=== PATIENT | male | born 1940 | race Caucasian/White ===

== ENCOUNTER 2016-09-28 01:27 | Inpatient (IN) | payer MEDICARE, BC ==
[~2016-09-28] VITALS: Ht 172.7 cm; Wt 84.7 kg
[2016-09-28] VITALS (18 sets, daily range): BP systolic 110–148; BP diastolic 58–69; PULSE 59–78; RESP 16–26; TEMP 97.9; O2SAT 93–100
[~2016-09-28 01:27] MED LIST: ALBU8I INH; AMIO200T PO; ATOR10TA PO; AUGM875T PO; CALTTAB5 PO; CARV12.5 PO; CLON1 PO; COUM3TAB PO; ESCI10TA PO; FURO20TA PO; IPRAAER IN; LORTA5 PO; OMEP20TA PO; PRED20 PO; TAMS0.4C67 PO; Z.0.OXYGENDME NASAL
[2016-09-28] MEDS ORDERED: SODIUM CHLORIDE 0.9% FLUSH 5 ML FLUSH IVF PRN ×2 (01:45→03:00)
--- NOTE | 2016-09-28 01:53 | PD ---
HPI Chief Complaint: Respiratory Distress Time Seen by Provider: 01:42 Travel History International Travel<30 days: No Contact w/Intl Traveler<30days: No Traveled to known affect area: No History of Present Illness HPI The patient is a 76 year old male who presents to the [facility] emergency department with a history of shortness of breath that began while he was taking a nap. The patient reports that he has not been sleeping well and has instead been taking frequent naps. According to ambulance services, the patient was tachypneic with crackles in the bases and a history of congestive heart failure with diaphoresis and significant work of breathing. Prior to arrival, the patient was placed on CPAP, however he had anxiety related to this was given Ativan 0.5 mg IV. The patient was able to tolerate the CPAP then and had O2 saturations en route to this facility of 98% since placement on CPAP. The patient was given Lasix 100 mg IV. The patient on arrival reports feeling improved. The patient was switched over to BiPAP by respiratory therapy who is also at the bedside. The patient reports that he does also have a history of COPD. The patient has dyspnea on arrival and is unable to provide any other significant history. The patient's history is obtained from reviewing the patient's electronic medical record and from reviewing the patient's paperwork provided by him at the bedside. PFS Past Medical History Narrative Medical The patient's past medical history is significant for congestive heart failure, COPD, coronary artery disease, hypertension, thrombocytopenia, atrial fibrillation Hx Anticoagulant Therapy: Yes (coumadin) Asthma: No Atrial Fibrillation: Yes Autoimmune Disease: Yes Blood Disorders: Yes (platelet issues - very low count) Anxiety: Yes Depression: Yes Heart Rhythm Problems: Yes Cancer: No Cardiac Catheterization: Yes (PACER BATTERY REPLACED 05/11/16) Cardiovascular Problems: Yes High Cholesterol: No Chemotherapy: No Chest Pain: Yes Congestive Heart Failure: Yes COPD: Yes Cerebrovascular Accident: No Diabetes: No Diminished Hearing: No Endocrine: No Gastrointestinal Disorders: Yes (GERD, HX DIVERTICULITIS, COLOSTOMY) GERD: No Glaucoma: No Genitourinary: No Hepatitis: No Hiatal Hernia: Yes Hypertension: Yes Immune Disorder: No Implanted Vascular Access Dvce: Yes Kidney Stones: No Musculoskeletal: Yes (back pain) Neurologic: Yes (TIA a few months ago) Psychiatric: No Reproductive: No Respiratory: Yes (COPD) Integumentary: No Immunizations Current: Yes Myocardial Infarction: Yes Radiation Therapy: No Renal Failure: No Seizures: No Sleep Apnea: No Thyroid Disease: No Ulcer: No PNEUMOCCOCAL Vaccine (Year): 1 Past Surgical History Narrative Surgical The patient has a history of pacemaker and defibrillator placement, history of partial colon resection with colostomy status post reversal, history of bilateral cataract surgery. Abdominal Surgery: Yes (RUPT. DIVERTICULUM SX/ COLOSTOMY) AICD: Yes ([email or web address]) Body Medical Devices: pacemaker and defibrillator Cardiac Surgery: Yes (AICD IMPL.) Ear Surgery: No Endocrine Surgery: No Eye Surgery: Yes (COSME. CATARACT EXTRACT) Genitourinary Surgery: No Gynecologic Surgery: No Joint Replacement: No Oral Surgery: No Pacemaker: Yes (W/AICD) Thoracic Surgery: No Other Surgery: Yes (pacemaker defib,colostomy/reversal,) Social History Alcohol Use: No Tobacco Use: Yes (3-4 CIGARETTES/DAY) Substance Use: No Allergies-Medications (Allergen,Severity, Reaction): Coded Allergies: Quinidex Extentab (Verified Allergy, Severe, PLATELETT COUNT DECREASES/ BLINDNESS, 05/11/16) Niacin (Verified Allergy, Intermediate, RASH/ITCHING, 05/11/16) MRI PRECAUTION (Verified Adverse Reaction, Severe, NON MRI COMPATIBLE DEFIB 10/22/15 LRS, 05/11/16) *MDRO Multi-Drug Resistant Organism (Verified Adverse Reaction, Unknown, ) ESBL+E.Coli and VRE Enterococcus Faecium abdominal wound 07/2015 Reported Meds & Prescriptions Reported Meds & Active Scripts Active Reported Warfarin 3 Mg Tab 1.5 Mg PO TUETHURSAT Warfarin 3 Mg Tab 3 Mg PO MONWEDFRISUN Ventolin Hfa 18 GM Inh (Albuterol Sulfate) 90 Mcg/Act Aer 2 Puff INH Q4-6H PRN Carvedilol 12.5 Mg Tab 12.5 Mg PO BID Tamsulosin (Tamsulosin HCl) 0.4 Mg Cap 0.4 Mg PO HS Omeprazole 20 Mg Tab 20 Mg PO DAILY Medrol (Methylprednisolone) 4 Mg Tab 4 Mg PO DAILY Klor-Con M20 (Potassium Chloride Microencaps) 20 Meq Tab 20 Meq PO Q12HR Duoneb (Ipratropium-Albuterol Neb) 0.5-2.5 Mg/3 Ml Neb 1 Nebule INH Q6HR NEB Hydrocodone-Acetaminophen 5-300 Mg Tab 1 Tab PO AC LUNCH PRN Hydrocodone-Acetaminophen 5-300 Mg Tab 2 Tab PO BID PRN Furosemide 40 Mg Tab 40 Mg PO DAILY Escitalopram (Escitalopram Oxalate) 10 Mg Tab 10 Mg PO DAILY Doxycycline Hyclate 100 Mg Cap 100 Mg PO BID Clonazepam 0.5 Mg Tab 0.5 Mg PO BID Cheratussin AC Liq (Guaifenesin-Codeine Liq) 100-10 Mg/5 Ml Syrp 5 Ml PO Q4H PRN Do not exceed 6 doses/24 hrs. Calcium 600 with Vitamin D (Calcium Carbonate-Cholecalciferol) 600-400 mg-Unit Tab 1 Tab PO BID Atorvastatin (Atorvastatin Calcium) 10 Mg Tab 10 Mg PO HS Amiodarone (Amiodarone HCl) 200 Mg Tab 200 Mg PO DAILY Review of Systems General / Constitutional: No: Fever Eyes: No: Visual changes HENT: No: Headaches Cardiovascular: Positive: Dyspnea on exertion, Edema Respiratory: Positive: Cough, Shortness of Breath Gastrointestinal: No: Abdominal Pain Genitourinary: No: Dysuria Musculoskeletal: No: Pain Skin: No Rash Neurologic: No: Weakness Psychiatric: No: Depression Endocrine: No: Polydipsia Hematologic/Lymphatic: No: Easy Bruising Physical Exam Narrative General: The patient is a well-developed well-nourished male, with shortness of breath, currently on CPAP. Head and Neck exam: Head is normocephalic atraumatic. Eyes: Pupils are equal round and reactive to light. Nose: Midline septum with pink mucous membranes Mouth: Dentition unremarkable. Moist mucus membranes. Posterior oropharynx is not erythematous. No tonsillar hypertrophy. Uvula midline. Airway patent. Neck: No palpable lymphadenopathy. No nuchal rigidity. No thyromegaly. Cardiovascular: Regular rate and rhythm without murmurs, gallops, or rubs. No pulse deficit to the extremities and simultaneous auscultation and palpation of his radial artery. Lungs: Crackles audible in bilateral lung guthrie two thirds up from the base. No wheezes or rhonchi audible. Abdomen: Soft, without tenderness to palpation in all 4 quadrants of the abdomen. No guarding, rebound, or rigidity. Normal bowel sounds are audible. Extremities: No clubbing or cyanosis. The patient has 1+ pitting edema bilateral lower extremities. 2+ pulses in all 4 extremities. Back: No costovertebral angle tenderness to palpation. Neurologic Exam: Grossly nonfocal. Skin Exam: No rash noted. Intact skin that is warm and dry. Data Data Last Documented VS Vital Signs Date Time Temp Pulse Resp B/P Pulse Ox O2 Delivery O2 Flow Rate FiO2 09/28/16 03:45 100 50 09/28/16 01:47 CPAP 09/28/16 01:47 70 18 09/28/16 01:36 97.9 148/69 Orders Complete Blood Count With Diff (09/28/16 01:42) Comprehensive Metabolic Panel (09/28/16 01:42) B-Type Natriuretic Peptide (09/28/16 01:42) Act Partial Throm Time (Ptt) (09/28/16 01:42) Prothrombin Time / Inr (Pt) (09/28/16 01:42) Magnesium (Mg) (09/28/16 01:42) Ckmb (Isoenzyme) Profile (09/28/16 01:42) Troponin I (09/28/16 01:42) Arterial Blood Gas (Abg) (09/28/16 01:42) Urinalysis - C+S If Indicated (09/28/16 01:42) Iv Access Insert/Monitor (09/28/16 01:42) Electrocardiogram (09/28/16 01:42) Ecg Monitoring (09/28/16 01:42) Oximetry (09/28/16 01:42) Oxygen Administration (09/28/16 01:42) Chest, Single Ap (09/28/16 01:42) Sodium Chloride 0.9% Flush (Ns Flush) (09/28/16 01:45) Resp Bipap / Cpap Non Invas Vt (09/28/16 01:42) Urine Culture (09/28/16 01:40) Sodium Chloride 0.9% Flush (Ns Flush) (09/28/16 03:00) Methylprednisolone So Succ Inj (Solumedr (09/28/16 03:00) Albuterol-Ipratropium Neb (Duoneb Neb) (09/28/16 03:00) Admit Order (Ed Use Only) (09/28/16 04:03) Labs Laboratory Tests Test 09/28/16 09/28/16 09/28/16 01:20 01:40 03:29 White Blood Count 6.5 TH/MM3 Red Blood Count 4.46 MIL/MM3 Hemoglobin 12.6 GM/DL Hematocrit 39.7 % Mean Corpuscular Volume 89.2 FL Mean Corpuscular Hemoglobin 28.4 PG Mean Corpuscular Hemoglobin 31.8 % Concent Red Cell Distribution Width 17.1 % Platelet Count 179 TH/MM3 Mean Platelet Volume 7.8 FL Neutrophils (%) (Auto) 73.2 % Lymphocytes (%) (Auto) 16.5 % Monocytes (%) (Auto) 8.7 % Eosinophils (%) (Auto) 0.9 % Basophils (%) (Auto) 0.7 % Neutrophils # (Auto) 4.8 TH/MM3 Lymphocytes # (Auto) 1.1 TH/MM3 Monocytes # (Auto) 0.6 TH/MM3 Eosinophils # (Auto) 0.1 TH/MM3 Basophils # (Auto) 0.0 TH/MM3 CBC Comment DIFF FINAL Differential Comment Prothrombin Time 23.5 SEC Prothromb Time International 2.1 RATIO Ratio Activated Partial 36.4 SEC Thromboplast Time Sodium Level 140 MEQ/L Potassium Level 4.3 MEQ/L Chloride Level 98 MEQ/L Carbon Dioxide Level 38.5 MEQ/L Anion Gap 4 MEQ/L Blood Urea Nitrogen 20 MG/DL Creatinine 1.38 MG/DL Estimat Glomerular Filtration 50 ML/MIN Rate Random Glucose 105 MG/DL Calcium Level 9.0 MG/DL Magnesium Level 2.1 MG/DL Total Bilirubin 0.4 MG/DL Aspartate Amino Transf 74 U/L (AST/SGOT) Alanine Aminotransferase 41 U/L (ALT/SGPT) Alkaline Phosphatase 105 U/L Total Creatine Kinase 35 U/L Troponin I LESS THAN 0.02 NG/ML B-Type Natriuretic Peptide 124 PG/ML Total Protein 6.8 GM/DL Albumin 3.2 GM/DL Urine Color YELLOW Urine Turbidity CLEAR Urine pH 5.5 Urine Specific [place] 1.010 Urine Protein NEG mg/dL Urine Glucose (UA) NEG mg/dL Urine Ketones NEG mg/dL Urine Occult Blood TRACE Urine Nitrite POS Urine Bilirubin NEG Urine Urobilinogen LESS THAN 2.0 MG/DL Urine Leukocyte Esterase SMALL Urine RBC 3 /hpf Urine WBC 8 /hpf Urine Bacteria RARE /hpf Urine Hyaline Casts 4 /lpf Urine Mucus FEW /lpf Microscopic Urinalysis Comment CULTURE INDICATED Blood Gas Puncture Site RT BRACHIAL Blood Gas Patient Temperature 98.6 Blood Gas HCO3 37 mmol/L Blood Gas Base Excess 10.9 mmol/L Blood Gas Oxygen Saturation 93 % Arterial Blood pH 7.31 Arterial Blood Partial 77 mmHg Pressure CO2 Arterial Blood Partial 117 mmHG Pressure O2 Arterial Blood Oxygen Content 17.4 Vol % Arterial Blood 2.7 % Carboxyhemoglobin Arterial Blood Methemoglobin 2.5 % Blood Gas Hemoglobin 13.2 G/DL Oxygen Delivery Device NPPV Blood Gas Ventilator Setting PS12/PEEP5 Blood Gas Inspired Oxygen 50 % MDM Medical Decision Making Medical Screen Exam Complete: Yes Emergency Medical Condition: Yes Medical Record Reviewed: Yes Interpretation(s) Last Impressions Chest X-Ray 09/28/16 0142 Signed Impressions: Service Date/Time: Wednesday, September 28, 2016 02:09 - CONCLUSION: Mild bibasilar atelectasis and a tiny left pleural effusion. Mild compensated cardiomegaly. Salvatore Doe MD Differential Diagnosis Congestive heart failure, versus acute coronary syndrome, versus COPD exacerbation, versus pneumonia Narrative Course During the course of the patients emergency department visit, the patients history, examination, and differential diagnosis were reviewed with the patient. The patient had IV access obtained and blood work sent for analysis. The patient was placed on a cardiac surgeon with oximetry and blood pressure monitoring. The patient was switched over from CPAP to BiPAP. The patient's O2 saturation was noted to be 95% to 98% on FiO2 of 50%. An ABG will be done. An ABG reveals a pH of 7.308, PCO2 76.8, PO2 117, bicarbonate 37.4. Settings according to respiratory therapy for this BiPAP were 7 over 5, 50%. The patient 's inspiratory BiPAP was increased to 12 over 5. He will be maintained at the 50% FiO2 and the patient's ABG will be reassessed on those settings and approximately 45 minutes. The patient had an EKG done on arrival. The patient' s EKG shows an electronic ventricular paced rhythm. No other acute abnormality. The patient was provided DuoNeb nebs 2, Solu-Medrol 125 mg IV. The patients laboratory studies were reviewed and remarkable for white count of 6.5, hemoglobin 12.6, platelets 179 with 73.2 neutrophils, 8.7 monocytes. CMP is remarkable for a CO2 of 38.5, BUN 20, creatinine 1.38, GFR 50, AST 74, CPK 35, troponin I less than 0.02, BNP 124, INR 2.1, urinalysis shows positive nitrite and small leukocyte esterase 8 wbc's rare bacteria, culture indicated. The patient was given Levaquin for both urinary tract infection coverage and respiratory coverage Radiology studies were reviewed and remarkable for a chest x-ray that shows mild bibasilar atelectasis and a tiny left pleural effusion, mild compensated cardiomegaly. The patient on reexamination is resting comfortably. The patient is easily arousable. The patient is tolerating BiPAP well. The patient reports feeling improved. The repeat ABG in this patient reveals improvement of the pH to 7.35, PCO2 70, PO2 94.3, bicarbonate 37.8, base excess 11.8. I suspect that the patient has a component of chronic hypercapnia from COPD. The patient continues to feel improved. The patients results were discussed with the patient, including the plan of care. I explained that further testing and/ or monitoring is indicated based on the patients history, examination, and/ or laboratory findings. Therefore, I recommended admission for additional evaluation. The patient expressed understanding and was agreeable with this plan. The patient was admitted to the hospital in guarded condition and [facility] Critical Care Narrative Aggregate critical care time was 32 minutes. Time to perform other separately billable procedures was not included in the critical care time. My time did not include minutes spent treating any other patients simultaneously or on activities that did not directly contribute to the patient's treatment. The services I provided to this patient were to treat and/or prevent clinically significant deterioration that could result in: Respiratory failure, versus cardiovascular collapse, versus sepsis I provided critical care services requiring my management, as noted below: Chart data review, documentation time, medication orders and management, vital sign assessments/reviewing monitor data, ordering and reviewing lab tests, ordering and interpreting/reviewing x-rays and diagnostic studies, care of the patient and discussion of the patient with the admitting physicians. Sepsis Criteria SIRS Criteria (2 or more): RR > 20 or PaCO2 < 32 Physician Communication Physician Communication The patient's case was discussed with Dr. Mccurdy who did agree to admit the patient for further evaluation and treatment at this time. Diagnosis Primary Impression: COPD exacerbation Additional Impressions: UTI (urinary tract infection) Qualified Code: N39.0 - Urinary tract infection without hematuria, site unspecified Congestive heart failure Qualified Code: I50.9 - Chronic congestive heart failure, unspecified congestive heart failure type Admitting Information Admitting Physician Requests: Admit Chery Bautista MD Sep 28, 2016 01:53
[2016-09-28 02:01] LABS: AUTOMATED NEUTROPHIL # 4.8 TH/MM3 (1.8-7.7); BASOPHIL % 0.7 % (0.0-2.0); EOSINOPHIL # 0.1 TH/MM3 (0-0.4); EOSINOPHIL % 0.9 % (0.0-4.0); HEMATOCRIT 39.7 % (39.0-51.0); HEMO FLAGS DIFF FINAL; LYMPH % 16.5 % (9.0-44.0); LYMPHOCYTE # 1.1 TH/MM3 (1.0-4.8); MEAN CELL VOLUME 89.2 FL (80.0-100.0); MEAN CORPUSCULAR HEMOGLOBIN 28.4 PG (27.0-34.0); MEAN CORPUSCULAR HGB CONC 31.8 % (32.0-36.0); MONO % 8.7 % (0.0-8.0); NEUT % 73.2 % (16.0-70.0); PLATELET COUNT 179 TH/MM3 (150-450); RED BLOOD COUNT 4.46 MIL/MM3 (4.50-5.90); RED CELL DISTRIBUTION WIDTH 17.1 % (11.6-17.2); WHITE BLOOD COUNT 6.5 TH/MM3 (4.0-11.0)
[2016-09-28 02:06] LABS: APTT (PATIENT) 36.4 SEC (24.3-30.1); INTERNATIONAL NORMALIZED RATIO 2.1 RATIO; PROTHROMBIN TIME - PATIENT 23.5 SEC (9.8-11.6)
[2016-09-28 02:07] LABS: BACTERIA, URINE RARE /hpf; BLOOD, URINE TRACE (NEG); COMMENT (UR) CULTURE INDICATED; CULTURE IF INDICATED CULTURE INDICATED; GLUCOSE,URINE NEG (NEG); HYALINE CAST, URINE 4 /lpf (RARE); KETONE, URINE NEG (NEG); MUCUS URINE FEW /lpf (OCC); NITRITE,URINE POS (NEG); PH, URINE 5.5 (5.0-8.5); URINE COLOR YELLOW (YELLW/STRAW)
[2016-09-28 02:16] LABS: ALKALINE PHOSPHATASE 105 U/L (45-117); TOTAL BILIRUBIN ADULT 0.4 MG/DL (0.2-1.0)
[2016-09-28 02:28] LABS: ALT (GPT) 41 U/L (12-78); ANION GAP 4 MEQ/L (5-15); AST (GOT) 74 U/L (15-37); BICARBONATE 38.5 MEQ/L (21.0-32.0); BLOOD UREA NITROGEN 20 MG/DL (7-18); CHLORIDE 98 MEQ/L (98-107); CREATINE KINASE 35 U/L (39-308); GLOMERULAR FILTRATION RATE 50 ML/MIN (>89); MAGNESIUM 2.1 MG/DL (1.5-2.5); POTASSIUM 4.3 MEQ/L (3.5-5.1); SODIUM (NA) 140 MEQ/L (136-145)
--- NOTE | 2016-09-28 02:33 | RADRPT ---
EXAM DATE/TIME: 09/28/2016 02:09 [facility] COMPARISON: CHEST SINGLE AP, May 11, 2016, 20:07. INDICATIONS : Pt short of breath lying down. MEDICAL HISTORY : Hypertension. Chronic obstructive pulmonary disease. Congestive heart failure. TIA, Myocardial in farction, A-fib, SURGICAL HISTORY : Pacemaker. Colostomy. ENCOUNTER: Initial ACUITY: 1 day PAIN SCORE: 8/10 LOCATION: Bilateral chest FINDINGS: Mild cardiomegaly unchanged. No pulmonary edema seen. There is very mild patchy scarring of both lung bases. A tiny pleural effusion is suspected on the left. No pneumothorax. Left-sided subclavian transvenous cardiac pacer/defibrillator again noted. CONCLUSION: Mild bibasilar atelectasis and a tiny left pleural effusion. Mild compensated cardiomegaly. Salvatore Doe MD on September 28, 2016 at 2:30 Board Certified Radiologist. This report was verified electronically.
[2016-09-28] MEDS ORDERED: methylPREDNISolone SOD SUCC 125 MG/2 ML VIAL IVP ONE (03:00)
[2016-09-28 03:57] LABS: BLOOD GAS BASE EXCESS 10.9 mmol/L (-2-2); BLOOD GAS CARBOXYHEMOGLOBIN 2.7 % (0-4); BLOOD GAS HCO3 37 mmol/L (22-26); BLOOD GAS METHEMOGLOBIN 2.5 % (0-2); BLOOD GAS O2 HGB SATURATION 93 % (90-100); BLOOD GAS OXYGEN CONTENT 17.4 Vol % (12.0-20.0); BLOOD GAS PCO2 77 mmHg (38-42); BLOOD GAS PO2 117 mmHG (61-120); BLOOD GAS TOTAL HGB 13.2 G/DL (12.0-16.0); TEMP CORR TO 98.6
[2016-09-28 03:58] LABS: CRITICAL VALUE YES; OXYGEN DEVICE NPPV
[2016-09-28 03:59] LABS: DRAW SITE RT BRACHIAL; FIO2 50 %; VENT SETTINGS PS12/PEEP5
[2016-09-28 04:00] LABS: NUMBER OF ARTERIAL PUNCTURES 2; STAT YES
[2016-09-28] MEDS: RESP: ALBUTEROL 2.5 MG/IPRATROPIUM 0.5 MG NEB (SCH) INH (04:13)
[2016-09-28] MEDS ORDERED: ACETAMINOPHEN/HYDROcodone 325 MG/5 MG TAB PO PRN (04:15)
[2016-09-28] MEDS ORDERED: ACETAMINOPHEN/HYDROcodone 325 MG/10 MG TAB PO PRN (04:15)
[2016-09-28] MEDS ORDERED: ACETAMINOPHEN 325 MG TAB PO PRN (04:15)
[2016-09-28] MEDS ORDERED: SODIUM CHLORIDE 0.9% FLUSH 5 ML FLUSH FLUSH PRN (04:15)
[2016-09-28] MEDS ORDERED: BISACODYL 10 MG SUPP PR PRN (04:15)
[2016-09-28] MEDS ORDERED: ONDANSETRON HCL 4 MG/2 ML VIAL IVP PRN (04:15)
--- NOTE | 2016-09-28 04:34 | HHI.HP ---
[facility] Jessica Man MD Admission Diagnosis COPD exacerbation Diagnoses: (1) COPD (chronic obstructive pulmonary disease) Diagnosis: Principal (2) CHF (congestive heart failure) Diagnosis: Principal (3) UTI (urinary tract infection) Diagnosis: Principal (4) Renal insufficiency Diagnosis: Principal (5) A-fib Diagnosis: Principal Travel History International Travel<30 Days: No Contact w/Intl Traveler <30 Da: No Traveled to Known Affected Are: No History of Present Illness This is a 76-year-old male with a PMH of HTN, CAD, CHF (Echo 10/25/14 w/ EF 30-35 %), s/p AICD, A-fib on Coumadin, Anxiety, Depression and COPD who was brought to the ER by EMS secondary to SOB. Per pt he woke up from sleep w/ severe SOB. No c/o chest pain. Upon EMS arrival, O2 sat 98% on RA however significant work of breathing w/ crackles, s/p Lasix 100mg IV and started on CPAP. On arrival, BP 148/69, HR 78, O2 sat 100% on BiPAP 50% FiO2, Afebrile. WBC normal. Creatinine 1.38, previously 1. 249-1216. Troponin negative. BNP 124. INR 2.1. UA with mild UTI. CXR with mild basilar atelectasis and tiny left pleural effusion. ABG w/ pH 7.31, pCO2 77 and pO2 117 on BIPAP w/ 7/5 and 50% FIO2, pending repeat ABG on 08/03. S/p Solu-Medrol and DuoNeb w/ some improvement. Review of Systems Other ROS: 14 point review of systems otherwise negative. Past Family Social History Past Medical History PMH: HTN, CAD, CHF (Echo 10/25/14 w/ EF 30-35%), s/p AICD, A-fib on Coumadin, Anxiety, Depression and COPD Past Surgical History PAST SURGICAL HISTORY: AICD, Partial Colectomy, Colostomy with Reversal, Cataract Surgery Allergies: Coded Allergies: Quinidex Extentab (Verified Allergy, Severe, PLATELETT COUNT DECREASES/ BLINDNESS, 05/11/16) Niacin (Verified Allergy, Intermediate, RASH/ITCHING, 05/11/16) MRI PRECAUTION (Verified Adverse Reaction, Severe, NON MRI COMPATIBLE DEFIB 10/22/15 LRS, 05/11/16) *MDRO Multi-Drug Resistant Organism (Verified Adverse Reaction, Unknown, ) ESBL+E.Coli and VRE Enterococcus Faecium abdominal wound 07/2015 Family History PAST FAMILY HISTORY: Reviewed. No h/o DM or CAD Social History PAST SOCIAL HISTORY: Negative for alcohol or drugs. Smokes 4-5 cigarettes/day. Physical Exam Vital Signs Vital Signs Date Time Temp Pulse Resp B/P Pulse Ox O2 Delivery O2 Flow Rate FiO2 09/28/16 03:45 100 50 09/28/16 01:47 100 CPAP 50 09/28/16 01:47 70 18 100 Room Air 09/28/16 01:42 66 18 100 CPAP 50 09/28/16 01:41 100 CPAP 50 09/28/16 01:36 97.9 78 24 148/69 100 09/28/16 01:36 100 50 09/28/16 01:35 100 50 09/28/16 01:35 100 BiPAP 50 Physical Exam PE: GENERAL: Elderly male in no acute distress. On BIPAP HEENT: PERRLA, EOMI. No scleral icterus or conjunctival pallor. No lid lag or facial droop. CARDIOVASCULAR: Regular rate and rhythm. No obvious murmurs to auscultation. No chest tenderness to palpation. RESPIRATORY: No obvious rhonchi or wheezing. Clear to auscultation. Breath sounds decreased at bases bilaterally GASTROINTESTINAL: Abdomen soft, non-tender, nondistended. BS normal. MUSCULOSKELETAL: Extremities without clubbing, cyanosis, or edema. No obvious deformities. NEUROLOGICAL: Awake, alert and oriented x4. No focal neurologic deficits. Moving both upper and lower extremities spontaneously. Laboratory Laboratory Tests Test 09/28/16 09/28/16 09/28/16 01:20 01:40 03:29 White Blood Count 6.5 Red Blood Count 4.46 Hemoglobin 12.6 Hematocrit 39.7 Mean Corpuscular Volume 89.2 Mean Corpuscular Hemoglobin 28.4 Mean Corpuscular Hemoglobin 31.8 Concent Red Cell Distribution Width 17.1 Platelet Count 179 Mean Platelet Volume 7.8 Neutrophils (%) (Auto) 73.2 Lymphocytes (%) (Auto) 16.5 Monocytes (%) (Auto) 8.7 Eosinophils (%) (Auto) 0.9 Basophils (%) (Auto) 0.7 Neutrophils # (Auto) 4.8 Lymphocytes # (Auto) 1.1 Monocytes # (Auto) 0.6 Eosinophils # (Auto) 0.1 Basophils # (Auto) 0.0 CBC Comment DIFF FINAL Differential Comment Prothrombin Time 23.5 Prothromb Time International 2.1 Ratio Activated Partial 36.4 Thromboplast Time Sodium Level 140 Potassium Level 4.3 Chloride Level 98 Carbon Dioxide Level 38.5 Anion Gap 4 Blood Urea Nitrogen 20 Creatinine 1.38 Estimat Glomerular Filtration 50 Rate Random Glucose 105 Calcium Level 9.0 Magnesium Level 2.1 Total Bilirubin 0.4 Aspartate Amino Transf 74 (AST/SGOT) Alanine Aminotransferase 41 (ALT/SGPT) Alkaline Phosphatase 105 Total Creatine Kinase 35 Troponin I LESS THAN 0.02 B-Type Natriuretic Peptide 124 Total Protein 6.8 Albumin 3.2 Urine Color YELLOW Urine Turbidity CLEAR Urine pH 5.5 Urine Specific [place] 1.010 Urine Protein NEG Urine Glucose (UA) NEG Urine Ketones NEG Urine Occult Blood TRACE Urine Nitrite POS Urine Bilirubin NEG Urine Urobilinogen LESS THAN 2.0 Urine Leukocyte Esterase SMALL Urine RBC 3 Urine WBC 8 Urine Bacteria RARE Urine Hyaline Casts 4 Urine Mucus FEW Microscopic Urinalysis Comment CULTURE INDICATED Blood Gas Puncture Site RT BRACHIAL Blood Gas Patient Temperature 98.6 Blood Gas HCO3 37 Blood Gas Base Excess 10.9 Blood Gas Oxygen Saturation 93 Arterial Blood pH 7.31 Arterial Blood Partial 77 Pressure CO2 Arterial Blood Partial 117 Pressure O2 Arterial Blood Oxygen Content 17.4 Arterial Blood 2.7 Carboxyhemoglobin Arterial Blood Methemoglobin 2.5 Blood Gas Hemoglobin 13.2 Oxygen Delivery Device NPPV Blood Gas Ventilator Setting PS12/PEEP5 Blood Gas Inspired Oxygen 50 Date/Time Procedure Status Source Growth 09/28/16 01:40 Urine Culture Received Urine Clean Catch Pending Result Diagram: 09/28/160 09/28/16 0120 Assessment and Plan Problem List: (1) COPD (chronic obstructive pulmonary disease) ICD Code: J44.9 Status: Acute (2) CHF (congestive heart failure) ICD Code: I50.9 Status: Acute (3) UTI (urinary tract infection) ICD Code: N39.0 Status: Acute (4) Renal insufficiency ICD Code: N28.9 Status: Acute (5) A-fib ICD Code: I48.91 Status: Acute Assessment and Plan A/P: 1. COPD: Chronic Respiratory Failure w/ Acute Exacerbation. O2 sat 98% on RA however significant work of breathing, started on CPAP by EMS, currently on BIPAP w/ improvement. ABG w/ pH 7.31, pCO2 77, pO2 117 on 03/03 50% FIO2, settings adjusted, pending repeat ABG. Continue Solu-Medrol, DuoNeb, Symbicort , Mucinex. 2. CHF: Chronic. Systolic. Echo 10/25/14 w/ EF 30-35%. BNP 124. CXR w/ small effusion, +crackles on exam s/p Lasix 100mg x1 by EMS w/ good urine output. Resume home medications, caution w/ diuretics and renal insufficiency. 3. UTI: U/a w/ UTI, start Rocephin IV. 4. Renal Insufficiency: Creatinine 1.38, previously 1.24 on 05/11/16. Likely secondary to dehydration from UTI, diuretics and increased respiratory losses. Repeat labs in am. 5. A-fib: Chronic. Resume home Amiodarone and Coumadin. INR therapeutic at 2.1. 6. DVT Prophylaxis: Coumadin. 7. Social work for d/c planning as needed. 8. Case discussed w/ ER physician at length. Physician Certification 2 Midnight Certification Type: Admission for Inpatient Services Order for Inpatient Services The services are ordered in accordance with Medicare regulations or non- Medicare payer requirements, as applicable. In the case of services not specified as inpatient-only, they are appropriately provided as inpatient services in accordance with the 2-midnight benchmark. Estimated LOS (days): 2 days is the estimated time the patient will need to remain in the hospital, assuming treatment plan goals are met and no additional complications. Post-Hospital Plan: Not yet determined Problem Qualifiers (1) UTI (urinary tract infection): Qualified Code: N39.0 - Urinary tract infection without hematuria, site unspecified Eli Mccurdy MD Sep 28, 2016 04:34
[2016-09-28] MEDS ORDERED: AMIO200T PO (04:35)
[2016-09-28] MEDS ORDERED: IPRASOL INH (04:35)
[2016-09-28] MEDS ORDERED: VENTAER INH (04:35)
[2016-09-28] MEDS ORDERED: OMEP20TA PO (04:35)
[2016-09-28] MEDS ORDERED: WARF-58 PO ×2 (04:35→04:36)
[2016-09-28] MEDS ORDERED: CALC1TAB87 PO (04:35)
[2016-09-28] MEDS ORDERED: ATOR10TA15 PO (04:35)
[2016-09-28] MEDS ORDERED: CARV12.52 PO (04:35)
[2016-09-28] MEDS ORDERED: HYDR-4107 PO ×2 (04:35)
[2016-09-28] MEDS ORDERED: CHERSYP2 PO (04:35)
[2016-09-28] MEDS ORDERED: TAMS0.4C4 PO (04:35)
[2016-09-28] MEDS ORDERED: ESCI10TA PO (04:35)
[2016-09-28] MEDS ORDERED: POTA-245 PO (04:35)
[2016-09-28] MEDS ORDERED: CLON0.5T PO (04:35)
[2016-09-28] MEDS ORDERED: MEDR4TAB PO (04:35)
[2016-09-28] MEDS ORDERED: DOXY100C PO (04:35)
[2016-09-28] MEDS ORDERED: FURO40TA PO (04:35)
[2016-09-28] MEDS ORDERED: cefTRIAXone INJ 1,000 MG in SODIUM CHLORIDE 0.9% INJ 100 ML IV SCH (05:00)
[2016-09-28 06:48] LABS: BLOOD GAS BASE EXCESS 11.8 mmol/L (-2-2); BLOOD GAS CARBOXYHEMOGLOBIN 2.5 % (0-4); BLOOD GAS HCO3 38 mmol/L (22-26); BLOOD GAS METHEMOGLOBIN 2.4 % (0-2); BLOOD GAS O2 HGB SATURATION 93 % (90-100); BLOOD GAS OXYGEN CONTENT 16.8 Vol % (12.0-20.0); BLOOD GAS PCO2 71 mmHg (38-42); BLOOD GAS PO2 94 mmHG (61-120); BLOOD GAS TOTAL HGB 12.8 G/DL (12.0-16.0); TEMP CORR TO 98.6
[2016-09-28 06:49] LABS: CRITICAL VALUE YES; DRAW SITE RT BRACHIAL; FIO2 50 %; NUMBER OF ARTERIAL PUNCTURES 2; OXYGEN DEVICE VENTILATOR; STAT YES; VENT SETTINGS NPPV
[2016-09-28] MEDS: RESP: ALBUTEROL 2.5 MG/IPRATROPIUM 0.5 MG NEB (SCH) NEB ×4 (07:51→20:28)
--- NOTE | 2016-09-28 08:30 | EKG ---
Date Performed: 09/28/2016 Time Performed: 01:49:12 PTAGE: 76 years EKG: ELECTRONIC VENTRICULAR PACEMAKER ATRIAL SENSED, VENTRICULAR PACED RHYTHM ABNORMAL RHYTHM EC G PREVIOUS TRACING : 05/11/2016 20.51 Compared to previous tracing, atrial pacing no longer evide nt, ventricular pacing now present. DOCTOR: Arpan Grant Interpretating Date/Time 09/28/2016 08:29:19
[2016-09-28] MEDS: SODIUM CHLORIDE 0.9% FLUSH 5 ML FLUSH FLUSH SCH ×2 (09:00→20:21)
[2016-09-28] MEDS ORDERED: clonazePAM 0.5 MG TAB PO PRN (09:00)
--- NOTE | 2016-09-28 09:15 | HHI.PR ---
Addendum To [facility] Progress Not Reason for addendum: Additonal documentation (The pt was on BiPAP. His respiratory status was stable. He said he has followed with a director of medical review in the past. He has recently been hospitalized. He is on home oxygen. Discussed with nursing. Will change antibiotics to cefepime. Will continue nebs, BiPAP and Solumedrol. Consult pulmonology. Continue home medication regimen including Lasix. ) Yohan Rothman DO Sep 28, 2016 09:15
[2016-09-28] MEDS: FUROSEMIDE 40 MG TAB PO SCH (10:56)
[2016-09-28] MEDS: guaiFENesin E.R. 600 MG TAB PO SCH ×2 (10:56→20:49)
[2016-09-28] MEDS: PANTOPRAZOLE SOD 20 MG DELAYED RELEASE TAB PO SCH (10:56)
[2016-09-28] MEDS: AMIODARONE 200 MG TAB PO SCH (10:56)
[2016-09-28] MEDS: CARVEDILOL 12.5 MG TAB PO SCH ×2 (10:57→20:49)
[2016-09-28] MEDS: methylPREDNISolone SOD SUCC 40 MG/1 ML VIAL IV PUSH SCH ×3 (10:58→20:49)
[2016-09-28] MEDS: BUDESONIDE-FORMOTEROL 160/4.5 MCG INHALER INH SCH ×2 (11:54→20:49)
[2016-09-28] MEDS: ESCITALOPRAM OXALATE 10 MG TAB PO SCH (11:54)
[2016-09-28] MEDS: CEFEPIME INJ 2,000 MG in SODIUM CHLORIDE 0.9% INJ 100 ML IV SCH (15:23)
[2016-09-28] MEDS ORDERED: WARFARIN SOD 3 MG TAB PO SCH (16:00)
[2016-09-28] MEDS: WARFARIN SOD 2 MG TAB PO SCH (16:56)
[2016-09-28] MEDS: ATORVASTATIN 10 MG TAB PO SCH (20:58)
[2016-09-28] MEDS: TAMSULOSIN HCL 0.4 MG CAP PO SCH (20:58)
[2016-09-29] VITALS (12 sets, daily range): BP systolic 109–161; BP diastolic 53–91; PULSE 59–89; RESP 16–18; TEMP 99.2; O2SAT 92–98
[2016-09-29] MEDS: CEFEPIME INJ 2,000 MG in SODIUM CHLORIDE 0.9% INJ 100 ML IV SCH ×3 (00:07→22:50)
[2016-09-29 04:28] LABS: BASOPHIL % 0.1 % (0.0-2.0); HEMATOCRIT 35.1 % (39.0-51.0); HEMO FLAGS DIFF FINAL; LYMPH % 12.1 % (9.0-44.0); MEAN CELL VOLUME 87.9 FL (80.0-100.0); MONO % 4.3 % (0.0-8.0); NEUT % 83.5 % (16.0-70.0); PLATELET COUNT 160 TH/MM3 (150-450); RED BLOOD COUNT 3.99 MIL/MM3 (4.50-5.90); RED CELL DISTRIBUTION WIDTH 16.9 % (11.6-17.2); WHITE BLOOD COUNT 8.3 TH/MM3 (4.0-11.0)
[2016-09-29] MEDS: methylPREDNISolone SOD SUCC 40 MG/1 ML VIAL IV PUSH SCH ×4 (04:31→21:29)
[2016-09-29 04:38] LABS: INTERNATIONAL NORMALIZED RATIO 2.2 RATIO; PROTHROMBIN TIME - PATIENT 24.6 SEC (9.8-11.6)
[2016-09-29 04:47] LABS: ANION GAP 5 MEQ/L (5-15); AST (GOT) 54 U/L (15-37); BICARBONATE 36.9 MEQ/L (21.0-32.0); BLOOD UREA NITROGEN 29 MG/DL (7-18); CHLORIDE 95 MEQ/L (98-107); GLOMERULAR FILTRATION RATE 47 ML/MIN (>89); POTASSIUM 4.1 MEQ/L (3.5-5.1); SODIUM (NA) 137 MEQ/L (136-145)
[2016-09-29 04:50] LABS: ALKALINE PHOSPHATASE 87 U/L (45-117); ALT (GPT) 48 U/L (12-78); TOTAL BILIRUBIN ADULT 0.4 MG/DL (0.2-1.0)
--- NOTE | 2016-09-29 06:52 | MB ---
cc: HUGO SMITH MD DATE OF CONSULTATION 09/28/[address] Eli Mccurdy REASON FOR CONSULTATION Respiratory insufficiency. PRESENT ILLNESS Mr. Benjamin is a 76-year-old male with longstanding history of COPD, coronary disease, congestive heart failure with decreased ejection fraction, status post defibrillator placement. The patient was brought to the hospital with worsening of his shortness of breath. He woke up from his sleep with shortness of breath. He did not have any fever or chills, denied any chest pain. EVAC was called and his saturation was good but he had increased work of breathing. The patient was brought to the emergency room and put on BiPap. His blood gas shows pH of 7.31, pCO2 77, pO2 117 on 50% BiPap. His CBC showed a WBC of 6.5, hemoglobin 12.6, hematocrit 39.7, platelet count of 179. Sodium 140, potassium 4.3, chloride 90, CO2 38, BUN 20, creatinine 1.38. Chest x-ray shows mild bibasilar atelectasis with tiny pleural effusion. PAST MEDICAL HISTORY 1. Significant for history of DVT. 2. Coronary artery disease status post [place]. 3. Back pain. 4. Defibrillator placement. 5. Cardiomyopathy. 6. Diverticulitis requiring colostomy which was reversed. MEDICATIONS He is currently taking - 1. Lipitor 10 mg a day. 2. Flomax 0.4 mg a day. 3. Coumadin 2 mg a day. 4. Cefepime 2 grams q.8 hours. 5. Solu-Medrol 40 mg q. 6 hours. 6. Mucinex ER 600 mg twice a day. 7. Symbicort 160/4.5 two puffs twice a day. 8. Amiodarone 200 mg a day. 9. Coreg 12.5 mg twice a day. 10. Klonopin 0.5 mg twice a day. 11. Escitalopram 10 mg a day. 12. Lasix 40 mg a day. 13. Protonix 20 mg a day. ALLERGIES NIACIN. QUINIDEX. SOCIAL HISTORY He has 50 pack-year smoking, but has cut back to half pack a day. No alcohol use. He is retired . FAMILY HISTORY He is single, lives in his niece. He has no children. He has one brother and one sister. All . Both parents . REVIEW OF SYSTEMS He uses a wheelchair, feels weak, has shortness of breath, stiffness in the joints. No seizure, stroke or epilepsy. PHYSICAL EXAMINATION GENERAL: An obese, elderly male, mildly short of breath on BiPAP. VITAL SIGNS: Blood pressure 112/58, heart rate 59, respirations 16, temperature 98.8. HEENT EXAMINATION: Pupils are equal and reactive to light. Oral mucosa, nasal mucosa normal. NECK: Supple. JVP not raised. CHEST: He has a few scattered rhonchi. CV: S1 and S2 normal. ABDOMEN: Benign. EXTREMITIES: No edema. NIB ASSEMBLER: He is alert, oriented x 3. No focal deficit. IMPRESSION 1. Respiratory insufficiency. 2. COPD exacerbation. 3. Respiratory acidosis. 4. Congestive heart failure. 5. Atrial fibrillation. PLAN 1. We will give him IV Solu-Medrol. 2. Continue with BiPap and wean BiPap as he tolerates. 3. I will maintain him on nasal cannula. 4. Give him aerosol treatment. 5. Continue antibiotic. 6. Monitor his PT and INR. 7. Once he is better, we will check his pulmonary function study. 8. Further treatment will depend on his course in the hospital. Thank you Dr. Mccurdy for this consultation. MD TERESSA King/SSB /4:11 PM /6:32 AM KRISTAL
[2016-09-29] MEDS: SODIUM CHLORIDE 0.9% FLUSH 5 ML FLUSH FLUSH SCH ×2 (09:00→21:32)
[2016-09-29] MEDS: BUDESONIDE-FORMOTEROL 160/4.5 MCG INHALER INH SCH ×2 (09:15→21:29)
[2016-09-29] MEDS: FUROSEMIDE 40 MG TAB PO SCH (09:15)
[2016-09-29] MEDS: ESCITALOPRAM OXALATE 10 MG TAB PO SCH (09:15)
[2016-09-29] MEDS: guaiFENesin E.R. 600 MG TAB PO SCH ×2 (09:16→21:31)
[2016-09-29] MEDS: PANTOPRAZOLE SOD 20 MG DELAYED RELEASE TAB PO SCH (09:16)
[2016-09-29] MEDS: AMIODARONE 200 MG TAB PO SCH (09:16)
[2016-09-29] MEDS: CARVEDILOL 12.5 MG TAB PO SCH ×2 (09:16→21:31)
[2016-09-29] MEDS: RESP: ALBUTEROL 2.5 MG/IPRATROPIUM 0.5 MG NEB (SCH) NEB ×4 (09:51→19:49)
[2016-09-29] MEDS ORDERED: FUROSEMIDE 40 MG/4 ML VIAL IV PUSH SCH (15:00)
[2016-09-29] MEDS: WARFARIN SOD 2 MG TAB PO SCH (15:02)
--- NOTE | 2016-09-29 15:13 | HHI.PR ---
Subjective Remarks The patient was complaining of a lot of shortness of breath, especially while eating. He says his shortness of breath, a lot worse since he had the diverticulitis repair a couple of years ago. He says he has not been very outgoing and has been staying in his house for the most part. Objective Vitals Vital Signs Date Time Temp Pulse Resp B/P Pulse Ox O2 Delivery O2 Flow Rate FiO2 09/29/16 14:49 59 16 140/63 96 Nasal Cannula 3 09/29/16 10:17 60 16 109/53 93 Nasal Cannula 3 09/29/16 09:51 95 Nasal Cannula 3.00 09/29/16 09:20 61 16 144/70 96 Nasal Cannula 3 09/29/16 07:45 61 16 161/73 97 Nasal Cannula 4 09/29/16 06:24 79 16 157/91 95 3 09/29/16 04:32 89 16 145/72 98 Nasal Cannula 3 09/29/16 00:15 61 16 141/63 96 Nasal Cannula 2 09/28/16 21:20 61 22 124/58 97 09/28/16 20:00 95 Nasal Cannula 3.00 09/28/16 19:00 68 26 110/64 95 Nasal Cannula 3 09/28/16 17:00 70 24 133/61 95 Nasal Cannula 3 I/O 09/28/16 09/28/16 09/28/16 09/29/16 09/29/16 09/29/16 07:00 15:00 23:00 07:00 15:00 23:00 Output Total 2000 ml 1200 ml Balance -2000 ml -1200 ml Output Urine Total 2000 ml 1200 ml # Voids 1 0 Result Diagram: 09/29/16 0404 09/29/16 0404 Imaging Last Impressions Chest X-Ray 09/28/16 0142 Signed Impressions: Service Date/Time: Wednesday, September 28, 2016 02:09 - CONCLUSION: Mild bibasilar atelectasis and a tiny left pleural effusion. Mild compensated cardiomegaly. Salvatore Doe MD Objective Remarks GENERAL: Elderly male in no acute distress. HEENT: PERRLA, EOMI. No scleral icterus or conjunctival pallor. No lid lag or facial droop. CARDIOVASCULAR: Regular rate and rhythm. No obvious murmurs to auscultation. No chest tenderness to palpation. RESPIRATORY: Diffuse wheezing, crackles at the bases. GASTROINTESTINAL: Abdomen soft, non-tender, nondistended. BS normal. MUSCULOSKELETAL: Extremities without clubbing, cyanosis, or edema. No obvious deformities. NEUROLOGICAL: Awake, alert and oriented x4. No focal neurologic deficits. Moving both upper and lower extremities spontaneously. PSYCH: Slightly flattened affect. Medications and IVs Current Medications Medications (Trade) Dose Ordered Sig/Yasmeen Route Start Time Stop Time Status Last Admin (SoluMEDROL INJ) 40 mg Q6H IV PUSH 09/28/16 09:00 09/29/16 09:15 (Mucinex Er) 600 mg BID PO 09/28/16 09:00 09/29/16 09:16 (Symbicort 160-4.5 Inh) 2 puff Q12HR INH 09/28/16 09:00 09/29/16 09:15 (NS Flush) 2 ml UNSCH PRN FLUSH 09/28/16 04:15 (NS Flush) 2 ml BID FLUSH 09/28/16 09:00 09/28/16 20:21 (Zofran Inj) 4 mg Q6H PRN IVP 09/28/16 04:15 (Dulcolax Supp) 10 mg DAILY PRN [place] 09/28/16 04:15 (Tylenol) 650 mg Q6H PRN PO 09/28/16 04:15 ([place] 5-325 Mg) 1 tab Q4H PRN PO 09/28/16 04:15 ([place] 10-325 Mg) 1 tab Q4H PRN PO 09/28/16 04:15 (Cordarone) 200 mg DAILY PO 09/28/16 09:00 09/29/16 09:16 (Lipitor) 10 mg HS PO 09/28/16 21:00 09/28/16 20:58 (Coreg) 12.5 mg BID PO 09/28/16 09:00 09/29/16 09:16 (KlonoPIN) 0.5 mg BID PRN PO 09/28/16 09:00 (Lexapro) 10 mg DAILY PO 09/28/16 09:00 09/29/16 09:15 (Protonix) 20 mg DAILY PO 09/28/16 09:00 09/29/16 09:16 Tamsulosin HCl 0.4 mg 0.4 mg HS PO 09/28/16 21:00 09/28/16 20:58 (Coumadin Consult Pharmacy) 0 ml @ 0 mls/hr UNSCH OTHER 09/28/16 09:15 Warfarin Sodium 2 mg 2 mg DAILY@16 PO 09/28/16 16:00 09/28/16 16:56 (Maxipime Inj/NS Inj) 100 ml @ 200 mls/hr Q12H IV 09/29/16 18:00 (Lasix Inj) 40 mg BID@09,18 IV PUSH 09/29/16 15:00 UNV A/P Problem List: (1) COPD (chronic obstructive pulmonary disease) ICD Code: J44.9 Status: Acute (2) CHF (congestive heart failure) ICD Code: I50.9 Status: Acute (3) UTI (urinary tract infection) ICD Code: N39.0 Status: Acute (4) Renal insufficiency ICD Code: N28.9 Status: Acute (5) A-fib ICD Code: I48.91 Status: Acute Assessment and Plan COPD exacerbation The pt required BiPAP on admission, now on nasal cannula. Initial ABG w/ pH 7.31 , pCO2 77, pO2 117. Pulmonology consult appreciated. - Continue Solu-Medrol, DuoNeb, Symbicort, Mucinex. - incentive spirometry. - continue cefepime. - encourage ambulation. - PFTs when stable. - CXR in AM. Acute on chronic CHF exacerbation Echo 10/25/14 w/ EF 30-35%. BNP 124. CXR w/ small effusion, +crackles on exam s /p Lasix 100mg x1 by EMS w/ good urine output. - Lasix 40 mg IV BID. - continue cardiac regimen. - consider cardiology consult. - CXR in AM. UTI Urine growing gram negative sherita. - continue cefepime and follow urine culture. Renal Insufficiency Creatinine 1.38 on admission. - monitor while being diuresed. - avoid nephrotoxic agents. A-fib Chronic. INR therapeutic. - Resume home Amiodarone and Coumadin. Generalized weakness The pt is sedentary. - PT/ OT/ case management consult. DVT Prophylaxis: Coumadin. Discharge Planning Will need SNF when stable. Problem Qualifiers (1) UTI (urinary tract infection): Qualified Code: N39.0 - Urinary tract infection without hematuria, site unspecified Yohan Rothman DO Sep 29, 2016 15:13
--- NOTE | 2016-09-29 20:07 | HHI.PR ---
Subjective Remarks YOWM with COPD exac,Resp insuff Used CPAP Now weaned to NC Mild sob no Cough or sp no fever Objective Vital Signs Vital Signs Date Time Temp Pulse Resp B/P Pulse Ox O2 Delivery O2 Flow Rate FiO2 09/29/16 19:54 59 16 144/66 96 Room Air 3 09/29/16 16:20 59 16 143/68 94 Room Air 3 09/29/16 14:49 59 16 140/63 96 Nasal Cannula 3 09/29/16 10:17 60 16 109/53 93 Nasal Cannula 3 09/29/16 09:51 95 Nasal Cannula 3.00 09/29/16 09:20 61 16 144/70 96 Nasal Cannula 3 09/29/16 07:45 61 16 161/73 97 Nasal Cannula 4 09/29/16 06:24 79 16 157/91 95 3 09/29/16 04:32 89 16 145/72 98 Nasal Cannula 3 09/29/16 00:15 61 16 141/63 96 Nasal Cannula 2 09/28/16 21:20 61 22 124/58 97 I/O 09/28/16 09/28/16 09/28/16 09/29/16 09/29/16 09/29/16 07:00 15:00 23:00 07:00 15:00 23:00 Output Total 2000 ml 1200 ml 750 ml Balance -2000 ml -1200 ml -750 ml Output Urine Total 2000 ml 1200 ml 750 ml # Voids 1 0 0 Result Diagram: 09/29/1640309/29/164 Objective Remarks GENERAL: WBWN male, mild sob SKIN: Warm and dry. HEAD: Normocephalic. EYES: No scleral icterus. No injection or drainage. NECK: Supple, trachea midline. No JVD or lymphadenopathy. CARDIOVASCULAR: Regular rate and rhythm without murmurs, gallops, or rubs. RESPIRATORY: Breath sounds equal bilaterally. No accessory muscle use. Exp rhonchi GASTROINTESTINAL: Abdomen soft, non-tender, nondistended. MUSCULOSKELETAL: No cyanosis, or edema. BACK: Nontender without obvious deformity. No CVA tenderness. A/P Assessment and Plan COPD exac Resp insuff Resp acidosis AF CHF PLAN" IV Solumedrol Aerosol nebs Symbicort 2 puffs bid Cont Abx Bahman Villarreal MD Sep 29, 2016 20:07
[2016-09-29] MEDS: ATORVASTATIN 10 MG TAB PO SCH (21:32)
[2016-09-29] MEDS: TAMSULOSIN HCL 0.4 MG CAP PO SCH (21:32)
[2016-09-29] MEDS: FUROSEMIDE 40 MG/4 ML VIAL IV PUSH SCH (21:34)
[2016-09-30] VITALS (27 sets, daily range): BP systolic 115–143; BP diastolic 58–74; PULSE 59–90; RESP 18–20; TEMP 97.4–98.5; O2SAT 83–97
[2016-09-30] MEDS: methylPREDNISolone SOD SUCC 40 MG/1 ML VIAL IV PUSH SCH ×4 (01:57→20:59)
[2016-09-30] MEDS: CEFEPIME INJ 2,000 MG in SODIUM CHLORIDE 0.9% INJ 100 ML IV SCH (05:34)
[2016-09-30 07:07] LABS: PROTHROMBIN TIME - PATIENT 22.3 SEC (9.8-11.6)
[2016-09-30 07:31] LABS: BICARBONATE 38.5 MEQ/L (21.0-32.0); MAGNESIUM 2.3 MG/DL (1.5-2.5); POTASSIUM 3.5 MEQ/L (3.5-5.1)
[2016-09-30] MEDS ORDERED: POTASSIUM CHLORIDE 25 MEQ EFFERVESCENT TAB PO ONE (08:30)
[2016-09-30] MEDS: RESP: ALBUTEROL 2.5 MG/IPRATROPIUM 0.5 MG NEB (SCH) NEB ×4 (08:33→21:49)
[2016-09-30] MEDS: PANTOPRAZOLE SOD 20 MG DELAYED RELEASE TAB PO SCH (09:17)
[2016-09-30] MEDS: CARVEDILOL 12.5 MG TAB PO SCH ×2 (09:17→20:59)
[2016-09-30] MEDS: AMIODARONE 200 MG TAB PO SCH (09:17)
[2016-09-30] MEDS: ESCITALOPRAM OXALATE 10 MG TAB PO SCH (09:17)
[2016-09-30] MEDS: guaiFENesin E.R. 600 MG TAB PO SCH ×2 (09:17→20:59)
[2016-09-30] MEDS: FUROSEMIDE 40 MG/4 ML VIAL IV PUSH SCH ×2 (09:18→17:16)
[2016-09-30] MEDS: SODIUM CHLORIDE 0.9% FLUSH 5 ML FLUSH FLUSH SCH ×2 (09:19→21:00)
[2016-09-30] MEDS: BUDESONIDE-FORMOTEROL 160/4.5 MCG INHALER INH SCH ×2 (09:20→21:00)
--- NOTE | 2016-09-30 09:31 | HHI.PR ---
Subjective Remarks The patient had just gotten bathed. He said that his breathing was a lot better. He is trying to order some breakfast. He said it would be difficult for him to work with physical therapy but he will try. Discussed with nursing. Objective Vitals Vital Signs Date Time Temp Pulse Resp B/P Pulse Ox O2 Delivery O2 Flow Rate FiO2 09/30/16 08:33 97 Nasal Cannula 3.00 09/30/16 06:00 76 09/30/16 05:00 90 09/30/16 04:00 96 3.00 09/30/16 04:00 97.7 89 20 143/73 96 09/30/16 04:00 77 09/30/16 03:00 72 09/30/16 02:00 59 09/30/16 01:00 61 09/30/16 00:00 98.2 59 18 115/58 93 09/30/16 00:00 61 09/30/16 00:00 93 3.00 09/29/16 22:30 99.2 63 18 133/69 92 09/29/16 22:30 92 3.00 09/29/16 19:54 59 16 144/66 96 Room Air 3 09/29/16 19:49 95 Nasal Cannula 3.00 09/29/16 16:20 59 16 143/68 94 Room Air 3 09/29/16 14:49 59 16 140/63 96 Nasal Cannula 3 09/29/16 10:17 60 16 109/53 93 Nasal Cannula 3 09/29/16 09:51 95 Nasal Cannula 3.00 I/O 09/29/16 09/29/16 09/29/16 09/30/16 09/30/16 09/30/16 07:00 15:00 23:00 07:00 15:00 23:00 Intake Total 1700 ml Output Total 1200 ml 750 ml Balance -1200 ml -750 ml 1700 ml Intake Oral 300 ml IV Total 1400 ml Output Urine Total 1200 ml 750 ml # Voids 1 0 0 # Bowel Movements 1 Result Diagram: 09/29/16 0404 09/30/16 0640 Imaging Last Impressions Chest X-Ray 09/28/16 0142 Signed Impressions: Service Date/Time: Wednesday, September 28, 2016 02:09 - CONCLUSION: Mild bibasilar atelectasis and a tiny left pleural effusion. Mild compensated cardiomegaly. Salvatore Doe MD Objective Remarks GENERAL: Elderly male in no acute distress. HEENT: PERRLA, EOMI. No scleral icterus or conjunctival pallor. No lid lag or facial droop. CARDIOVASCULAR: Regular rate and rhythm. No obvious murmurs to auscultation. No chest tenderness to palpation. RESPIRATORY: Improved wheezing, crackles at the bases. GASTROINTESTINAL: Abdomen soft, non-tender, nondistended. BS normal. MUSCULOSKELETAL: Extremities without clubbing, cyanosis, or edema. No obvious deformities. NEUROLOGICAL: Awake, alert and oriented x4. No focal neurologic deficits. Moving both upper and lower extremities spontaneously. PSYCH: Mood and affect appropriate. Medications and IVs Current Medications Medications (Trade) Dose Ordered Sig/Yasmeen Route Start Time Stop Time Status Last Admin (SoluMEDROL INJ) 40 mg Q6H IV PUSH 09/28/16 09:00 09/30/16 09:18 (Mucinex Er) 600 mg BID PO 09/28/16 09:00 09/30/16 09:17 (Symbicort 160-4.5 Inh) 2 puff Q12HR INH 09/28/16 09:00 09/30/16 09:20 (NS Flush) 2 ml UNSCH PRN FLUSH 09/28/16 04:15 (NS Flush) 2 ml BID FLUSH 09/28/16 09:00 09/30/16 09:19 (Zofran Inj) 4 mg Q6H PRN IVP 09/28/16 04:15 (Dulcolax Supp) 10 mg DAILY PRN [place] 09/28/16 04:15 (Tylenol) 650 mg Q6H PRN PO 09/28/16 04:15 ([place] 5-325 Mg) 1 tab Q4H PRN PO 09/28/16 04:15 ([place] 10-325 Mg) 1 tab Q4H PRN PO 09/28/16 04:15 (Cordarone) 200 mg DAILY PO 09/28/16 09:00 09/30/16 09:17 (Lipitor) 10 mg HS PO 09/28/16 21:00 09/29/16 21:32 (Coreg) 12.5 mg BID PO 09/28/16 09:00 09/30/16 09:17 (KlonoPIN) 0.5 mg BID PRN PO 09/28/16 09:00 (Lexapro) 10 mg DAILY PO 09/28/16 09:00 09/30/16 09:17 (Protonix) 20 mg DAILY PO 09/28/16 09:00 09/30/16 09:17 Tamsulosin HCl 0.4 mg 0.4 mg HS PO 09/28/16 21:00 09/29/16 21:32 (Coumadin Consult Pharmacy) 0 ml @ 0 mls/hr UNSCH OTHER 09/28/16 09:15 Warfarin Sodium 2 mg 2 mg DAILY@16 PO 09/28/16 16:00 09/29/16 15:02 (Maxipime Inj/NS Inj) 100 ml @ 200 mls/hr Q12H IV 09/29/16 18:00 09/30/16 05:34 (Lasix Inj) 40 mg BID@09,18 IV PUSH 09/29/16 18:00 09/30/16 09:18 A/P Problem List: (1) COPD (chronic obstructive pulmonary disease) ICD Code: J44.9 Status: Acute (2) CHF (congestive heart failure) ICD Code: I50.9 Status: Acute (3) UTI (urinary tract infection) ICD Code: N39.0 Status: Acute (4) Renal insufficiency ICD Code: N28.9 Status: Acute (5) A-fib ICD Code: I48.91 Status: Acute Assessment and Plan COPD exacerbation The pt required BiPAP on admission, now on nasal cannula. Initial ABG w/ pH 7.31 , pCO2 77, pO2 117. Pulmonology consult appreciated. - Continue Solu-Medrol, DuoNeb, Symbicort, Mucinex. - incentive spirometry. - continue cefepime. - sputum culture requested. - encourage ambulation. - PFTs when stable. - repeat CXR today. Acute on chronic CHF exacerbation Echo 10/25/14 w/ EF 30-35%. BNP 124. CXR w/ small effusion, +crackles on exam s /p Lasix 100mg x1 by EMS w/ good urine output. - Lasix 40 mg IV BID. - continue cardiac regimen. - consider cardiology consult. UTI Urine growing gram negative sherita. - continue cefepime and follow urine culture. Renal Insufficiency Creatinine 1.38 on admission. Stable 09/30. - monitor while being diuresed. - avoid nephrotoxic agents. A-fib Chronic. INR therapeutic. - Resume home Amiodarone and Coumadin. Generalized weakness The pt is sedentary. - PT/ OT/ case management consult. DVT Prophylaxis: Coumadin. Discharge Planning Will need SNF when stable. Problem Qualifiers (1) UTI (urinary tract infection): Qualified Code: N39.0 - Urinary tract infection without hematuria, site unspecified Yohan Rothman DO Sep 30, 2016 09:31
--- NOTE | 2016-09-30 10:29 | RADRPT ---
EXAM DATE/TIME: 09/30/2016 09:44 [facility] COMPARISON: CHEST SINGLE AP, February 19, 2016, 9:44. INDICATIONS : Dyspnea MEDICAL HISTORY : Hypertension. Chronic obstructive pulmonary disease. A-Fib SURGICAL HISTORY : Pacemaker. ENCOUNTER: Subsequent ACUITY: 3 days PAIN SCORE: 0/10 LOCATION: chest FINDINGS: A single view of the chest demonstrates mild basilar airspace disease. Stable blunting left costophre lacey angle since prior studies over the last year, probably scarring. There is curvilinear calcificati on at the left ventricular apex probably related to a prior myocardial infarction. No pneumothorax. P acer leads overlying right atrium and right ventricle. CONCLUSION: 1. Persistent basilar density most characteristic of atelectasis or scarring. Left basilar scarring a t the costophrenic angle. 2. 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 Luis Antonio Dunn MD on September 30, 2016 at 10:11 Board Certified Radiologist. This report was verified electronically.
[2016-09-30] MEDS: AMPICILLIN-SULBACTAM INJ 3 GM in SODIUM CHLORIDE 0.9% INJ 100 ML IV SCH ×2 (14:00→21:02)
[2016-09-30] MEDS: WARFARIN SOD 2 MG TAB PO SCH (17:15)
--- NOTE | 2016-09-30 18:57 | HHI.PR ---
Subjective Remarks YOWM with COPD exac,Resp insuff Used CPAP Now weaned to NC Mild sob no fever feels congested Objective Vital Signs Vital Signs Date Time Temp Pulse Resp B/P Pulse Ox O2 Delivery O2 Flow Rate FiO2 09/30/16 18:00 60 09/30/16 17:00 59 09/30/16 16:28 97.4 59 18 137/74 94 09/30/16 16:00 78 09/30/16 15:00 62 09/30/16 14:00 59 09/30/16 13:00 68 09/30/16 12:26 98.1 72 20 124/64 91 09/30/16 12:00 65 09/30/16 11:00 77 09/30/16 10:00 62 09/30/16 09:00 72 09/30/16 09:00 98.2 59 20 133/67 90 09/30/16 09:00 62 09/30/16 08:33 97 Nasal Cannula 3.00 09/30/16 08:00 59 09/30/16 08:00 59 09/30/16 08:00 96 Room Air 3.00 50 09/30/16 06:00 76 09/30/16 05:00 90 09/30/16 04:00 96 3.00 09/30/16 04:00 97.7 89 20 143/73 96 09/30/16 04:00 77 09/30/16 03:00 72 09/30/16 02:00 59 09/30/16 01:00 61 09/30/16 00:00 98.2 59 18 115/58 93 09/30/16 00:00 61 09/30/16 00:00 93 3.00 09/29/16 22:30 99.2 63 18 133/69 92 09/29/16 22:30 92 3.00 09/29/16 19:54 59 16 144/66 96 Room Air 3 09/29/16 19:49 95 Nasal Cannula 3.00 I/O 09/29/16 09/29/16 09/29/16 09/30/16 09/30/16 09/30/16 07:00 15:00 23:00 07:00 15:00 23:00 Intake Total 1700 ml Output Total 1200 ml 750 ml 800 ml Balance -1200 ml -750 ml 1700 ml -800 ml Intake Oral 300 ml IV Total 1400 ml Output Urine Total 1200 ml 750 ml 800 ml # Voids 1 0 0 # Bowel Movements 1 Result Diagram: 09/29/16 0404 09/30/16 0640 Objective Remarks GENERAL: WBWN male, mild sob SKIN: Warm and dry. HEAD: Normocephalic. EYES: No scleral icterus. No injection or drainage. NECK: Supple, trachea midline. No JVD or lymphadenopathy. CARDIOVASCULAR: Regular rate and rhythm without murmurs, gallops, or rubs. RESPIRATORY: Breath sounds equal bilaterally. No accessory muscle use. Exp rhonchi GASTROINTESTINAL: Abdomen soft, non-tender, nondistended. MUSCULOSKELETAL: No cyanosis, or edema. BACK: Nontender without obvious deformity. No CVA tenderness. A/P Assessment and Plan COPD exac Resp insuff Resp acidosis AF CHF PLAN" IV Solumedrol Aerosol nebs Symbicort 2 puffs bid Cont Abx Acapella q 1 hr while awake Bahman Villarreal MD Sep 30, 2016 18:57
[2016-09-30] MEDS: TAMSULOSIN HCL 0.4 MG CAP PO SCH (20:59)
[2016-09-30] MEDS: ATORVASTATIN 10 MG TAB PO SCH (20:59)
[2016-10-01] VITALS (24 sets, daily range): BP systolic 125–154; BP diastolic 58–79; PULSE 59–82; RESP 18–20; TEMP 97.4–99.5; O2SAT 94–98
[2016-10-01] MEDS: AMPICILLIN-SULBACTAM INJ 3 GM in SODIUM CHLORIDE 0.9% INJ 100 ML IV SCH ×4 (03:01→21:54)
[2016-10-01] MEDS: methylPREDNISolone SOD SUCC 40 MG/1 ML VIAL IV PUSH SCH ×4 (03:02→21:36)
[2016-10-01 07:02] LABS: HEMATOCRIT 37.2 % (39.0-51.0); MEAN CELL VOLUME 88.1 FL (80.0-100.0); MEAN CORPUSCULAR HEMOGLOBIN 28.3 PG (27.0-34.0); MEAN CORPUSCULAR HGB CONC 32.1 % (32.0-36.0); PLATELET COUNT 146 TH/MM3 (150-450); RED BLOOD COUNT 4.23 MIL/MM3 (4.50-5.90); RED CELL DISTRIBUTION WIDTH 16.6 % (11.6-17.2); REVIEW FLAG FINAL; WHITE BLOOD COUNT 6.3 TH/MM3 (4.0-11.0)
[2016-10-01 07:10] LABS: INTERNATIONAL NORMALIZED RATIO 2.1 RATIO; PROTHROMBIN TIME - PATIENT 23.4 SEC (9.8-11.6)
[2016-10-01 07:18] LABS: BICARBONATE 38.4 MEQ/L (21.0-32.0); MAGNESIUM 2.4 MG/DL (1.5-2.5); POTASSIUM 3.8 MEQ/L (3.5-5.1)
[2016-10-01] MEDS: RESP: ALBUTEROL 2.5 MG/IPRATROPIUM 0.5 MG NEB (SCH) NEB ×4 (08:10→20:43)
[2016-10-01] MEDS: FUROSEMIDE 40 MG/4 ML VIAL IV PUSH SCH (08:50)
[2016-10-01] MEDS: PANTOPRAZOLE SOD 20 MG DELAYED RELEASE TAB PO SCH (08:50)
[2016-10-01] MEDS: guaiFENesin E.R. 600 MG TAB PO SCH ×2 (08:50→21:35)
[2016-10-01] MEDS: ESCITALOPRAM OXALATE 10 MG TAB PO SCH (08:50)
[2016-10-01] MEDS: SODIUM CHLORIDE 0.9% FLUSH 5 ML FLUSH FLUSH SCH ×2 (08:51→21:36)
[2016-10-01] MEDS: CARVEDILOL 12.5 MG TAB PO SCH ×2 (09:00→21:36)
[2016-10-01] MEDS: BUDESONIDE-FORMOTEROL 160/4.5 MCG INHALER INH SCH ×2 (09:01→21:00)
[2016-10-01] MEDS: AMIODARONE 200 MG TAB PO SCH (09:14)
--- NOTE | 2016-10-01 10:32 | HHI.PR ---
Subjective Remarks The pt said he slept well. He said his breathing was OK but he was still wheezing. He worked with physical therapy yesterday and became short of breath quickly. Discussed with nursing. Objective Vitals Vital Signs Date Time Temp Pulse Resp B/P Pulse Ox O2 Delivery O2 Flow Rate FiO2 10/01/16 10:00 59 10/01/16 09:18 Nasal Cannula 4.00 10/01/16 09:00 59 10/01/16 08:10 96 Nasal Cannula 4.00 10/01/16 08:00 99.5 59 20 153/73 94 10/01/16 06:00 72 10/01/16 05:00 59 10/01/16 04:00 98.1 59 18 146/79 95 10/01/16 04:00 59 10/01/16 04:00 Nasal Cannula 4.00 10/01/16 03:00 73 10/01/16 02:00 60 10/01/16 01:00 59 10/01/16 00:00 Nasal Cannula 4.00 10/01/16 00:00 59 10/01/16 00:00 97.4 60 20 143/73 97 09/30/16 23:00 59 09/30/16 22:00 68 09/30/16 21:50 95 Nasal Cannula 4.00 09/30/16 21:00 69 09/30/16 20:00 98.5 83 18 134/74 95 09/30/16 20:00 66 09/30/16 20:00 Nasal Cannula 4.00 09/30/16 19:00 59 09/30/16 18:00 60 09/30/16 17:00 59 09/30/16 16:28 97.4 59 18 137/74 94 09/30/16 16:00 78 09/30/16 15:00 62 09/30/16 14:00 59 09/30/16 13:00 68 09/30/16 12:26 98.1 72 20 124/64 91 09/30/16 12:00 65 09/30/16 11:00 77 I/O 09/30/16 09/30/16 09/30/16 10/01/16 10/01/16 10/01/16 07:00 15:00 23:00 07:00 15:00 23:00 Intake Total 1700 ml 760 ml Output Total 800 ml 1500 ml Balance 1700 ml -800 ml -740 ml Intake Oral 300 ml 560 ml IV Total 1400 ml 200 ml Output Urine Total 800 ml 1500 ml # Bowel Movements 1 0 Result Diagram: 10/01/16 0630 10/01/16 0630 Imaging Last Impressions Chest X-Ray 09/30/16 0000 Signed Impressions: Service Date/Time: Friday, September 30, 2016 09:44 - CONCLUSION: 1. Persistent basilar density most characteristic of atelectasis or scarring. Left basilar scarring at the costophrenic angle. 2. 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 Luis Antonio Dunn MD Objective Remarks GENERAL: Elderly male in no acute distress. HEENT: PERRLA, EOMI. No scleral icterus or conjunctival pallor. No lid lag or facial droop. CARDIOVASCULAR: Regular rate and rhythm. No obvious murmurs to auscultation. No chest tenderness to palpation. RESPIRATORY: Improved wheezing, crackles at the bases. GASTROINTESTINAL: Abdomen soft, non-tender, nondistended. BS normal. MUSCULOSKELETAL: Extremities without clubbing, cyanosis, or edema. No obvious deformities. NEUROLOGICAL: Awake, alert and oriented x4. No focal neurologic deficits. Moving both upper and lower extremities spontaneously. PSYCH: Mood and affect appropriate. Medications and IVs Current Medications Medications (Trade) Dose Ordered Sig/Yasmeen Route Start Time Stop Time Status Last Admin (SoluMEDROL INJ) 40 mg Q6H IV PUSH 09/28/16 09:00 10/01/16 08:50 (Mucinex Er) 600 mg BID PO 09/28/16 09:00 10/01/16 08:50 (Symbicort 160-4.5 Inh) 2 puff Q12HR INH 09/28/16 09:00 10/01/16 09:01 (NS Flush) 2 ml UNSCH PRN FLUSH 09/28/16 04:15 (NS Flush) 2 ml BID FLUSH 09/28/16 09:00 10/01/16 08:51 (Zofran Inj) 4 mg Q6H PRN IVP 09/28/16 04:15 (Dulcolax Supp) 10 mg DAILY PRN ID 09/28/16 04:15 (Tylenol) 650 mg Q6H PRN PO 09/28/16 04:15 ([place] 5-325 Mg) 1 tab Q4H PRN PO 09/28/16 04:15 ([place] 10-325 Mg) 1 tab Q4H PRN PO 09/28/16 04:15 (Cordarone) 200 mg DAILY PO 09/28/16 09:00 10/01/16 09:14 (Lipitor) 10 mg HS PO 09/28/16 21:00 09/30/16 20:59 (Coreg) 12.5 mg BID PO 09/28/16 09:00 09/30/16 20:59 (KlonoPIN) 0.5 mg BID PRN PO 09/28/16 09:00 (Lexapro) 10 mg DAILY PO 09/28/16 09:00 10/01/16 08:50 (Protonix) 20 mg DAILY PO 09/28/16 09:00 10/01/16 08:50 Tamsulosin HCl 0.4 mg 0.4 mg HS PO 09/28/16 21:00 09/30/16 20:59 (Coumadin Consult Pharmacy) 0 ml @ 0 mls/hr UNSCH OTHER 09/28/16 09:15 (Coumadin) 2 mg DAILY@16 PO 09/28/16 16:00 09/30/16 17:15 Furosemide 40 mg 40 mg BID@09,18 IV PUSH 09/29/16 18:00 10/01/16 08:50 (Unasyn Inj/NS Inj) 100 ml @ 200 mls/hr Q6H IV 09/30/16 14:00 10/01/16 08:47 A/P Problem List: (1) COPD (chronic obstructive pulmonary disease) ICD Code: J44.9 Status: Acute (2) CHF (congestive heart failure) ICD Code: I50.9 Status: Acute (3) UTI (urinary tract infection) ICD Code: N39.0 Status: Acute (4) Renal insufficiency ICD Code: N28.9 Status: Acute (5) A-fib ICD Code: I48.91 Status: Acute Assessment and Plan COPD exacerbation The pt required BiPAP on admission, now on nasal cannula. Initial ABG w/ pH 7.31 , pCO2 77, pO2 117. Pulmonology consult appreciated. - Continue Solu-Medrol, DuoNeb, Symbicort, Mucinex. - Acapella. - continue Unasyn. - sputum culture requested. - encourage ambulation. - PFTs when stable. Acute on chronic CHF exacerbation Echo 10/25/14 w/ EF 30-35%. BNP 124. CXR w/ small effusion, +crackles on exam s /p Lasix 100mg x1 by EMS w/ good urine output. - Lasix 40 mg PO BID. - continue cardiac regimen. Decrease Coreg s/t bradycardia. UTI Urine growing ESBL e coli. - continue Unasyn per sensitivities. Renal Insufficiency Creatinine 1.38 on admission. Improved 10/01. - monitor while being diuresed. - avoid nephrotoxic agents. A-fib Chronic. INR therapeutic. - Resume home Amiodarone and Coumadin. Generalized weakness The pt is sedentary. - PT/ OT/ case management consult. Will likely need SNF placement. DVT Prophylaxis: Coumadin. Discharge Planning Will need SNF when stable. Problem Qualifiers (1) UTI (urinary tract infection): Qualified Code: N39.0 - Urinary tract infection without hematuria, site unspecified Yohan Rothman DO Oct 01, 2016 10:32
[2016-10-01] MEDS: WARFARIN SOD 2 MG TAB PO SCH (16:33)
--- NOTE | 2016-10-01 17:26 | HHI.PR ---
Subjective Remarks YOWM with COPD exac,Resp insuff weaned to NC Mild sob no fever feels congested Still has wheezing Acapella helps Objective Vital Signs Vital Signs Date Time Temp Pulse Resp B/P Pulse Ox O2 Delivery O2 Flow Rate FiO2 10/01/16 17:00 68 10/01/16 16:15 98.7 60 18 154/70 98 10/01/16 16:00 59 10/01/16 14:00 59 10/01/16 12:00 98.4 59 20 140/74 95 10/01/16 12:00 59 10/01/16 11:03 59 10/01/16 10:00 59 10/01/16 09:18 Nasal Cannula 4.00 10/01/16 09:00 59 10/01/16 08:10 96 Nasal Cannula 4.00 10/01/16 08:00 99.5 59 20 153/73 94 10/01/16 08:00 59 10/01/16 06:00 72 10/01/16 05:00 59 10/01/16 04:00 98.1 59 18 146/79 95 10/01/16 04:00 59 10/01/16 04:00 Nasal Cannula 4.00 10/01/16 03:00 73 10/01/16 02:00 60 10/01/16 01:00 59 10/01/16 00:00 Nasal Cannula 4.00 10/01/16 00:00 59 10/01/16 00:00 97.4 60 20 143/73 97 09/30/16 23:00 59 09/30/16 22:00 68 09/30/16 21:50 95 Nasal Cannula 4.00 09/30/16 21:00 69 09/30/16 20:00 98.5 83 18 134/74 95 09/30/16 20:00 66 09/30/16 20:00 Nasal Cannula 4.00 09/30/16 19:00 59 09/30/16 18:00 60 I/O 09/30/16 09/30/16 09/30/16 10/01/16 10/01/16 10/01/16 07:00 15:00 23:00 07:00 15:00 23:00 Intake Total 1700 ml 760 ml Output Total 800 ml 1500 ml 800 ml Balance 1700 ml -800 ml -740 ml -800 ml Intake Oral 300 ml 560 ml IV Total 1400 ml 200 ml Output Urine Total 800 ml 1500 ml 800 ml # Bowel Movements 1 0 Result Diagram: 10/01/16 0630 10/01/16 0630 Objective Remarks GENERAL: WBWN male, mild sob SKIN: Warm and dry. HEAD: Normocephalic. EYES: No scleral icterus. No injection or drainage. NECK: Supple, trachea midline. No JVD or lymphadenopathy. CARDIOVASCULAR: Regular rate and rhythm without murmurs, gallops, or rubs. RESPIRATORY: Breath sounds equal bilaterally. No accessory muscle use. Exp rhonchi GASTROINTESTINAL: Abdomen soft, non-tender, nondistended. MUSCULOSKELETAL: No cyanosis, or edema. BACK: Nontender without obvious deformity. No CVA tenderness. A/P Assessment and Plan COPD exac Resp insuff Resp acidosis AF CHF PLAN" IV Solumedrol Aerosol nebs Symbicort 2 puffs bid Cont Abx Acapella q 1 hr while awake Bahman Villarreal MD Oct 01, 2016 17:26
[2016-10-01] MEDS: FUROSEMIDE 40 MG TAB PO SCH (17:41)
[2016-10-01] MEDS: ATORVASTATIN 10 MG TAB PO SCH (21:00)
[2016-10-01] MEDS: TAMSULOSIN HCL 0.4 MG CAP PO SCH (21:35)
[2016-10-02] VITALS (21 sets, daily range): BP systolic 119–141; BP diastolic 65–85; PULSE 56–98; RESP 18–20; TEMP 97–98.7; O2SAT 93–96
[2016-10-02] MEDS: AMPICILLIN-SULBACTAM INJ 3 GM in SODIUM CHLORIDE 0.9% INJ 100 ML IV SCH ×4 (02:13→20:40)
[2016-10-02] MEDS: methylPREDNISolone SOD SUCC 40 MG/1 ML VIAL IV PUSH SCH ×4 (02:14→20:40)
[2016-10-02 07:23] LABS: BICARBONATE 38.5 MEQ/L (21.0-32.0); MAGNESIUM 2.5 MG/DL (1.5-2.5); POTASSIUM 3.2 MEQ/L (3.5-5.1)
[2016-10-02 07:26] LABS: INTERNATIONAL NORMALIZED RATIO 2.5 RATIO
[2016-10-02] MEDS: RESP: ALBUTEROL 2.5 MG/IPRATROPIUM 0.5 MG NEB (PRN) NEB ×3 (08:14→19:01)
[2016-10-02] MEDS: SODIUM CHLORIDE 0.9% FLUSH 5 ML FLUSH FLUSH SCH ×2 (09:00→20:40)
[2016-10-02] MEDS: BUDESONIDE-FORMOTEROL 160/4.5 MCG INHALER INH SCH ×2 (09:00→20:40)
[2016-10-02] MEDS: AMIODARONE 200 MG TAB PO SCH (09:22)
[2016-10-02] MEDS: ESCITALOPRAM OXALATE 10 MG TAB PO SCH (09:22)
[2016-10-02] MEDS: PANTOPRAZOLE SOD 20 MG DELAYED RELEASE TAB PO SCH (09:22)
[2016-10-02] MEDS: CARVEDILOL 12.5 MG TAB PO SCH ×2 (09:22→20:41)
[2016-10-02] MEDS: FUROSEMIDE 40 MG TAB PO SCH ×2 (09:22→16:50)
[2016-10-02] MEDS: guaiFENesin E.R. 600 MG TAB PO SCH ×2 (09:22→20:41)
[2016-10-02] MEDS ORDERED: POTASSIUM CHLORIDE 25 MEQ EFFERVESCENT TAB PO ONE (16:00)
[2016-10-02] MEDS: WARFARIN SOD 1 MG TAB PO SCH (16:00)
[2016-10-02] MEDS: POLYETHYLENE GLYCOL 17 GM PKG PO SCH (16:50)
[2016-10-02] MEDS: SENNOSIDES 8.6 MG TAB PO SCH (16:50)
--- NOTE | 2016-10-02 17:43 | HHI.PR ---
Subjective Remarks The patient was complaining of some constipation. He said he was up in the chair for a few hours. He said he felt a little weak with ambulation. His partner was at the bedside. No acute complaints at this time. Objective Vitals Vital Signs Date Time Temp Pulse Resp B/P Pulse Ox O2 Delivery O2 Flow Rate FiO2 10/02/16 17:18 59 10/02/16 16:14 97.0 64 18 122/84 96 10/02/16 16:06 60 10/02/16 15:07 95 Nasal Cannula 3.00 10/02/16 14:37 60 10/02/16 13:07 60 10/02/16 12:46 98.6 98 18 119/85 95 10/02/16 12:10 59 10/02/16 11:55 98.6 60 20 119/65 94 10/02/16 11:42 64 10/02/16 10:32 64 10/02/16 08:45 98.0 60 20 132/72 95 10/02/16 08:15 96 Nasal Cannula 3.00 10/02/16 08:02 Nasal Cannula 4.00 50 10/02/16 06:00 72 10/02/16 05:00 56 10/02/16 04:00 60 10/02/16 04:00 98.0 60 18 122/65 94 10/02/16 03:00 58 10/02/16 00:00 98.5 59 18 137/70 95 10/01/16 23:00 60 10/01/16 22:00 60 10/01/16 21:00 63 10/01/16 20:43 95 Nasal Cannula 3.00 10/01/16 20:00 61 10/01/16 20:00 98.4 82 18 125/58 94 10/01/16 19:00 62 10/01/16 19:00 Nasal Cannula 4.00 10/01/16 18:00 71 I/O 10/01/16 10/01/16 10/01/16 10/02/16 10/02/16 10/02/16 07:00 15:00 23:00 07:00 15:00 23:00 Intake Total 760 ml 1200 ml 100 ml Output Total 1500 ml 800 ml 1350 ml Balance -740 ml -800 ml -150 ml 100 ml Intake Oral 560 ml 960 ml IV Total 200 ml 240 ml 100 ml Output Urine Total 1500 ml 800 ml 1350 ml # Bowel Movements 0 0 Result Diagram: 10/01/16 0630 10/02/16 0555 Imaging Last Impressions Chest X-Ray 09/30/16 0000 Signed Impressions: Service Date/Time: Friday, September 30, 2016 09:44 - CONCLUSION: 1. Persistent basilar density most characteristic of atelectasis or scarring. Left basilar scarring at the costophrenic angle. 2. 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 Luis Antonio Dunn MD Objective Remarks GENERAL: Elderly male in no acute distress. HEENT: PERRLA, EOMI. No scleral icterus or conjunctival pallor. No lid lag or facial droop. CARDIOVASCULAR: Regular rate and rhythm. No obvious murmurs to auscultation. No chest tenderness to palpation. RESPIRATORY: Improved wheezing, crackles at the bases. GASTROINTESTINAL: Abdomen soft, non-tender, nondistended. BS normal. MUSCULOSKELETAL: Extremities without clubbing, cyanosis, or edema. No obvious deformities. NEUROLOGICAL: Awake, alert and oriented x4. No focal neurologic deficits. Moving both upper and lower extremities spontaneously. PSYCH: Mood and affect appropriate. Medications and IVs Current Medications Medications (Trade) Dose Ordered Sig/Yasmeen Route Start Time Stop Time Status Last Admin (SoluMEDROL INJ) 40 mg Q6H IV PUSH 09/28/16 09:00 10/02/16 14:52 (Mucinex Er) 600 mg BID PO 09/28/16 09:00 10/02/16 09:22 (Symbicort 160-4.5 Inh) 2 puff Q12HR INH 09/28/16 09:00 10/02/16 09:00 (NS Flush) 2 ml UNSCH PRN FLUSH 09/28/16 04:15 (NS Flush) 2 ml BID FLUSH 09/28/16 09:00 10/02/16 09:00 (Zofran Inj) 4 mg Q6H PRN IVP 09/28/16 04:15 (Dulcolax Supp) 10 mg DAILY PRN [place] 09/28/16 04:15 (Tylenol) 650 mg Q6H PRN PO 09/28/16 04:15 ([place] 5-325 Mg) 1 tab Q4H PRN PO 09/28/16 04:15 ([place] 10-325 Mg) 1 tab Q4H PRN PO 09/28/16 04:15 (Cordarone) 200 mg DAILY PO 09/28/16 09:00 10/02/16 09:22 (Lipitor) 10 mg HS PO 09/28/16 21:00 10/01/16 21:00 (KlonoPIN) 0.5 mg BID PRN PO 09/28/16 09:00 (Lexapro) 10 mg DAILY PO 09/28/16 09:00 10/02/16 09:22 (Protonix) 20 mg DAILY PO 09/28/16 09:00 10/02/16 09:22 Tamsulosin HCl 0.4 mg 0.4 mg HS PO 09/28/16 21:00 10/01/16 21:35 Pharmacy Profile Note 0 ml @ 0 mls/hr UNSCH OTHER 09/28/16 09:15 (Unasyn Inj/NS Inj) 100 ml @ 200 mls/hr Q6H IV 09/30/16 14:00 10/02/16 14:52 (Coreg) 6.25 mg BID PO 10/01/16 21:00 10/02/16 09:22 (Lasix) 40 mg BID@09,18 PO 10/01/16 18:00 10/02/16 16:50 (Coumadin) 1 mg DAILY@16 PO 10/02/16 16:00 10/02/16 16:00 (Colace) 100 mg BID PO 10/02/16 21:00 (Senokot) 17.2 mg DAILY PO 10/02/16 17:00 10/02/16 16:50 (Miralax) 17 gm DAILY PO 10/02/16 17:00 10/02/16 16:50 A/P Problem List: (1) COPD (chronic obstructive pulmonary disease) ICD Code: J44.9 Status: Acute (2) CHF (congestive heart failure) ICD Code: I50.9 Status: Acute (3) UTI (urinary tract infection) ICD Code: N39.0 Status: Acute (4) Renal insufficiency ICD Code: N28.9 Status: Acute (5) A-fib ICD Code: I48.91 Status: Acute Assessment and Plan COPD exacerbation The pt required BiPAP on admission, now on nasal cannula. Initial ABG w/ pH 7.31 , pCO2 77, pO2 117. Pulmonology consult appreciated. Sputum culture with normal respiratory prashant. - Continue Solu-Medrol, DuoNeb, Symbicort, Mucinex. - Acapella. - continue Unasyn. - encourage ambulation. - PFTs when stable. - Wean oxygen as tolerated. Acute on chronic CHF exacerbation Echo 10/25/14 w/ EF 30-35%. BNP 124. CXR w/ small effusion, +crackles on exam s /p Lasix 100mg x1 by EMS w/ good urine output. - Lasix 40 mg PO BID. - continue cardiac regimen. Decrease Coreg s/t bradycardia. UTI Urine growing ESBL e coli. - continue Unasyn per sensitivities. Renal Insufficiency Creatinine 1.38 on admission. Improved 2/3. - monitor while being diuresed. - avoid nephrotoxic agents. - Follow urine output. A-fib Chronic. INR therapeutic. - Resume home Amiodarone and Coumadin. Generalized weakness The pt is sedentary. - PT/ OT/ case management consult. Will likely need SNF placement. Hypokalemia Secondary to Lasix. - Replete and monitor. DVT Prophylaxis: Coumadin. Discharge Planning Will need SNF when stable. Problem Qualifiers (1) UTI (urinary tract infection): Qualified Code: N39.0 - Urinary tract infection without hematuria, site unspecified Yohan Rothman DO Oct 02, 2016 17:43
--- NOTE | 2016-10-02 20:05 | HHI.PR ---
Subjective Remarks 76 YOWM with COPD exac,Resp insuff weaned to NC Mild sob no fever feels congested Acapella helps Objective Vital Signs Vital Signs Date Time Temp Pulse Resp B/P Pulse Ox O2 Delivery O2 Flow Rate FiO2 10/02/16 18:04 61 10/02/16 17:18 59 10/02/16 16:14 97.0 64 18 122/84 96 10/02/16 16:06 60 10/02/16 15:07 95 Nasal Cannula 3.00 10/02/16 14:37 60 10/02/16 13:07 60 10/02/16 12:46 98.6 98 18 119/85 95 10/02/16 12:10 59 10/02/16 11:55 98.6 60 20 119/65 94 10/02/16 11:42 64 10/02/16 10:32 64 10/02/16 08:45 98.0 60 20 132/72 95 10/02/16 08:15 96 Nasal Cannula 3.00 10/02/16 08:02 Nasal Cannula 4.00 50 10/02/16 06:00 72 10/02/16 05:00 56 10/02/16 04:00 60 10/02/16 04:00 98.0 60 18 122/65 94 10/02/16 03:00 58 10/02/16 00:00 98.5 59 18 137/70 95 10/01/16 23:00 60 10/01/16 22:00 60 10/01/16 21:00 63 10/01/16 20:43 95 Nasal Cannula 3.00 I/O 10/01/16 10/01/16 10/01/16 10/02/16 10/02/16 10/02/16 07:00 15:00 23:00 07:00 15:00 23:00 Intake Total 760 ml 1200 ml 100 ml Output Total 1500 ml 800 ml 1350 ml Balance -740 ml -800 ml -150 ml 100 ml Intake Oral 560 ml 960 ml IV Total 200 ml 240 ml 100 ml Output Urine Total 1500 ml 800 ml 1350 ml # Bowel Movements 0 0 Result Diagram: 10/01/16 0630 10/02/16 0555 Objective Remarks GENERAL: WBWN male, mild sob SKIN: Warm and dry. HEAD: Normocephalic. EYES: No scleral icterus. No injection or drainage. NECK: Supple, trachea midline. No JVD or lymphadenopathy. CARDIOVASCULAR: Regular rate and rhythm without murmurs, gallops, or rubs. RESPIRATORY: Breath sounds equal bilaterally. No accessory muscle use. Exp rhonchi GASTROINTESTINAL: Abdomen soft, non-tender, nondistended. MUSCULOSKELETAL: No cyanosis, or edema. BACK: Nontender without obvious deformity. No CVA tenderness. A/P Assessment and Plan COPD exac Resp insuff Resp acidosis AF CHF PLAN" Aerosol nebs Symbicort 2 puffs bid Cont Abx Acapella q 1 hr while awake Bahman Villarreal MD Oct 02, 2016 20:05
[2016-10-02] MEDS: ATORVASTATIN 10 MG TAB PO SCH (20:41)
[2016-10-02] MEDS: DOCUSATE SODIUM 100 MG CAP PO SCH (20:42)
[2016-10-02] MEDS: TAMSULOSIN HCL 0.4 MG CAP PO SCH (21:00)
[2016-10-03] VITALS (24 sets, daily range): BP systolic 121–155; BP diastolic 57–81; PULSE 58–85; RESP 17–20; TEMP 97.9–99.7; O2SAT 93–96
[2016-10-03] MEDS: methylPREDNISolone SOD SUCC 40 MG/1 ML VIAL IV PUSH SCH ×3 (01:30→21:51)
[2016-10-03] MEDS: AMPICILLIN-SULBACTAM INJ 3 GM in SODIUM CHLORIDE 0.9% INJ 100 ML IV SCH ×4 (01:30→21:50)
[2016-10-03 07:35] LABS: INTERNATIONAL NORMALIZED RATIO 2.4 RATIO; PROTHROMBIN TIME - PATIENT 27.3 SEC (9.8-11.6)
[2016-10-03 08:08] LABS: BICARBONATE 38.6 MEQ/L (21.0-32.0); POTASSIUM 3.9 MEQ/L (3.5-5.1)
[2016-10-03] MEDS ORDERED: LACTULOSE SYRUP 20 GM/30 ML CUP PO ONE (08:45)
--- NOTE | 2016-10-03 08:48 | HHI.PR ---
Subjective Remarks The pt said he's having small bowel movements. He says his wheezing is improved. He wants to go home rather than to a SNF when able. He was about to eat breakfast. Objective Vitals Vital Signs Date Time Temp Pulse Resp B/P Pulse Ox O2 Delivery O2 Flow Rate FiO2 10/03/16 07:00 59 10/03/16 06:00 59 10/03/16 04:00 59 10/03/16 04:00 98.2 59 18 148/81 96 10/03/16 02:00 58 10/03/16 00:00 62 10/03/16 00:00 98.5 60 20 150/79 96 10/02/16 22:00 58 10/02/16 20:00 93 Nasal Cannula 3.00 10/02/16 20:00 61 10/02/16 20:00 98.7 61 20 141/67 93 10/02/16 18:04 61 10/02/16 17:18 59 10/02/16 16:14 97.0 64 18 122/84 96 10/02/16 16:06 60 10/02/16 15:07 95 Nasal Cannula 3.00 10/02/16 14:37 60 10/02/16 13:07 60 10/02/16 12:46 98.6 98 18 119/85 95 10/02/16 12:10 59 10/02/16 11:55 98.6 60 20 119/65 94 10/02/16 11:42 64 10/02/16 10:32 64 10/02/16 08:45 98.0 60 20 132/72 95 I/O 10/02/16 10/02/16 10/02/16 10/03/16 10/03/16 10/03/16 07:00 15:00 23:00 07:00 15:00 23:00 Intake Total 1200 ml 100 ml 680 ml Output Total 1350 ml 950 ml Balance -150 ml 100 ml -270 ml Intake Oral 960 ml 480 ml IV Total 240 ml 100 ml 200 ml Output Urine Total 1350 ml 950 ml # Bowel Movements 0 0 Result Diagram: 10/01/16 0630 10/03/16 0550 Imaging Last Impressions Chest X-Ray 09/30/16 0000 Signed Impressions: Service Date/Time: Friday, September 30, 2016 09:44 - CONCLUSION: 1. Persistent basilar density most characteristic of atelectasis or scarring. Left basilar scarring at the costophrenic angle. 2. 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 Luis Antonio Dunn MD Objective Remarks GENERAL: Elderly male in no acute distress. HEENT: PERRLA, EOMI. No scleral icterus or conjunctival pallor. No lid lag or facial droop. CARDIOVASCULAR: Regular rate and rhythm. No obvious murmurs to auscultation. No chest tenderness to palpation. RESPIRATORY: Improved wheezing. GASTROINTESTINAL: Abdomen soft, non-tender, nondistended. BS normal. MUSCULOSKELETAL: Extremities without clubbing, cyanosis, or edema. No obvious deformities. NEUROLOGICAL: Awake, alert and oriented x4. No focal neurologic deficits. Moving both upper and lower extremities spontaneously. PSYCH: Mood and affect appropriate. Medications and IVs Current Medications Medications (Trade) Dose Ordered Sig/Yasmeen Route Start Time Stop Time Status Last Admin (SoluMEDROL INJ) 40 mg Q6H IV PUSH 09/28/16 09:00 10/03/16 01:30 (Mucinex Er) 600 mg BID PO 09/28/16 09:00 10/02/16 20:41 (Symbicort 160-4.5 Inh) 2 puff Q12HR INH 09/28/16 09:00 10/02/16 20:40 (NS Flush) 2 ml UNSCH PRN FLUSH 09/28/16 04:15 (NS Flush) 2 ml BID FLUSH 09/28/16 09:00 10/02/16 20:40 (Zofran Inj) 4 mg Q6H PRN IVP 09/28/16 04:15 (Dulcolax Supp) 10 mg DAILY PRN [place] 09/28/16 04:15 (Tylenol) 650 mg Q6H PRN PO 09/28/16 04:15 ([place] 5-325 Mg) 1 tab Q4H PRN PO 09/28/16 04:15 ([place] 10-325 Mg) 1 tab Q4H PRN PO 09/28/16 04:15 (Cordarone) 200 mg DAILY PO 09/28/16 09:00 10/02/16 09:22 (Lipitor) 10 mg HS PO 09/28/16 21:00 10/02/16 20:41 (KlonoPIN) 0.5 mg BID PRN PO 09/28/16 09:00 (Lexapro) 10 mg DAILY PO 09/28/16 09:00 10/02/16 09:22 (Protonix) 20 mg DAILY PO 09/28/16 09:00 10/02/16 09:22 Tamsulosin HCl 0.4 mg 0.4 mg HS PO 09/28/16 21:00 10/01/16 21:35 Pharmacy Profile Note 0 ml @ 0 mls/hr UNSCH OTHER 09/28/16 09:15 (Unasyn Inj/NS Inj) 100 ml @ 200 mls/hr Q6H IV 09/30/16 14:00 10/03/16 01:30 (Coreg) 6.25 mg BID PO 10/01/16 21:00 10/02/16 20:41 (Lasix) 40 mg BID@09,18 PO 10/01/16 18:00 10/02/16 16:50 (Coumadin) 1 mg DAILY@16 PO 10/02/16 16:00 10/02/16 16:00 (Colace) 100 mg BID PO 10/02/16 21:00 (Senokot) 17.2 mg DAILY PO 10/02/16 17:00 10/02/16 16:50 (Miralax) 17 gm DAILY PO 10/02/16 17:00 10/02/16 16:50 (KCl) 20 meq DAILY PO 10/03/16 09:00 A/P Problem List: (1) COPD (chronic obstructive pulmonary disease) ICD Code: J44.9 Status: Acute (2) CHF (congestive heart failure) ICD Code: I50.9 Status: Acute (3) UTI (urinary tract infection) ICD Code: N39.0 Status: Acute (4) Renal insufficiency ICD Code: N28.9 Status: Acute (5) A-fib ICD Code: I48.91 Status: Acute Assessment and Plan COPD exacerbation The pt required BiPAP on admission, now on nasal cannula. Initial ABG w/ pH 7.31 , pCO2 77, pO2 117. Pulmonology consult appreciated. Sputum culture with normal respiratory prashant. Wheezing has improved 10/03. - Continue Solu-Medrol, DuoNeb, Symbicort, Mucinex. Wean Solumedrol to 40 mg IV BID 10/03. - Acapella. - continue Unasyn. - encourage ambulation. - PFTs when stable. - Wean oxygen as tolerated. Acute on chronic CHF exacerbation Echo 10/25/14 w/ EF 30-35%. BNP 124. CXR w/ small effusion, +crackles on exam s /p Lasix 100mg x1 by EMS w/ good urine output. - Lasix 40 mg PO BID. - continue cardiac regimen. Decrease Coreg s/t bradycardia. UTI Urine growing ESBL e coli. - continue Unasyn per sensitivities. Renal Insufficiency Creatinine 1.38 on admission. Stable 10/03. - monitor while being diuresed. - avoid nephrotoxic agents. - Follow urine output. A-fib Chronic. INR therapeutic. - Resume home Amiodarone and Coumadin. Generalized weakness The pt is sedentary. - PT/ OT/ case management consult. The pt would like to be discharged home rather than to a SNF when stable as he has a caregiver who lives with him. Hypokalemia Secondary to Lasix. - Replete and monitor. KCl 20 meq daily. DVT Prophylaxis: Coumadin. Discharge Planning Awaiting clinical improvement. Problem Qualifiers (1) UTI (urinary tract infection): Qualified Code: N39.0 - Urinary tract infection without hematuria, site unspecified Yohan Rothman DO Oct 03, 2016 08:48
[2016-10-03] MEDS: POLYETHYLENE GLYCOL 17 GM PKG PO SCH (09:00)
[2016-10-03] MEDS: guaiFENesin E.R. 600 MG TAB PO SCH ×2 (09:00→21:53)
[2016-10-03] MEDS: ESCITALOPRAM OXALATE 10 MG TAB PO SCH (09:01)
[2016-10-03] MEDS: POTASSIUM CHLORIDE 20 MEQ CONTROLLED RELEASE TAB PO SCH (09:01)
[2016-10-03] MEDS: AMIODARONE 200 MG TAB PO SCH (09:01)
[2016-10-03] MEDS: DOCUSATE SODIUM 100 MG CAP PO SCH ×2 (09:01→21:00)
[2016-10-03] MEDS: SENNOSIDES 8.6 MG TAB PO SCH (09:01)
[2016-10-03] MEDS: CARVEDILOL 12.5 MG TAB PO SCH ×2 (09:02→21:52)
[2016-10-03] MEDS: PANTOPRAZOLE SOD 20 MG DELAYED RELEASE TAB PO SCH (09:02)
[2016-10-03] MEDS: FUROSEMIDE 40 MG TAB PO SCH ×2 (09:02→17:29)
[2016-10-03] MEDS: BUDESONIDE-FORMOTEROL 160/4.5 MCG INHALER INH SCH ×2 (09:02→21:54)
[2016-10-03] MEDS: SODIUM CHLORIDE 0.9% FLUSH 5 ML FLUSH FLUSH SCH ×2 (09:02→21:54)
[2016-10-03] MEDS ORDERED: BISACODYL 10 MG SUPP RECTAL PRN (12:45)
[2016-10-03] MEDS: RESP: ALBUTEROL 2.5 MG/IPRATROPIUM 0.5 MG NEB (PRN) NEB ×2 (14:27→19:09)
[2016-10-03] MEDS: WARFARIN SOD 1 MG TAB PO SCH (15:40)
--- NOTE | 2016-10-03 17:29 | HHI.PR ---
Subjective Remarks 76 YOWM with COPD exac,Resp insuff weaned to NC Mild sob no fever feels congested Acapella helps Has Diarrhoea, had 4 BM No Abd pain Objective Vital Signs Vital Signs Date Time Temp Pulse Resp B/P Pulse Ox O2 Delivery O2 Flow Rate FiO2 10/03/16 17:00 60 10/03/16 16:00 59 10/03/16 15:30 97.9 60 19 137/69 96 10/03/16 15:00 60 10/03/16 14:00 60 10/03/16 13:00 59 10/03/16 12:00 98.0 60 17 134/59 94 10/03/16 12:00 60 10/03/16 11:00 60 10/03/16 10:00 60 10/03/16 09:28 95 Nasal Cannula 3.00 10/03/16 09:00 60 10/03/16 08:30 98.0 61 19 155/76 93 10/03/16 08:00 59 10/03/16 07:30 93 Nasal Cannula 2.00 10/03/16 07:00 59 10/03/16 06:00 59 10/03/16 04:00 59 10/03/16 04:00 98.2 59 18 148/81 96 10/03/16 02:00 58 10/03/16 00:00 62 10/03/16 00:00 98.5 60 20 150/79 96 10/02/16 22:00 58 10/02/16 20:00 93 Nasal Cannula 3.00 10/02/16 20:00 61 10/02/16 20:00 98.7 61 20 141/67 93 10/02/16 18:04 61 I/O 10/02/16 10/02/16 10/02/16 10/03/16 10/03/16 10/03/16 07:00 15:00 23:00 07:00 15:00 23:00 Intake Total 1200 ml 100 ml 680 ml Output Total 1350 ml 950 ml 300 ml 500 ml Balance -150 ml 100 ml -270 ml -300 ml -500 ml Intake Oral 960 ml 480 ml IV Total 240 ml 100 ml 200 ml Output Urine Total 1350 ml 950 ml 300 ml 500 ml # Bowel Movements 0 0 2 3 Result Diagram: 10/01/16 0630 10/03/16 0550 Objective Remarks GENERAL: WBWN male, mild sob SKIN: Warm and dry. HEAD: Normocephalic. EYES: No scleral icterus. No injection or drainage. NECK: Supple, trachea midline. No JVD or lymphadenopathy. CARDIOVASCULAR: Regular rate and rhythm without murmurs, gallops, or rubs. RESPIRATORY: Breath sounds equal bilaterally. No accessory muscle use. Exp rhonchi GASTROINTESTINAL: Abdomen soft, non-tender, nondistended. MUSCULOSKELETAL: No cyanosis, or edema. BACK: Nontender without obvious deformity. No CVA tenderness. A/P Assessment and Plan COPD exac Resp insuff Resp acidosis AF CHF PLAN" Aerosol nebs Symbicort 2 puffs bid Cont Abx Acapella q 1 hr while awake Supplement 02 to keep sat >90% Bahman Villarreal MD Oct 03, 2016 17:29
[2016-10-03] MEDS: ATORVASTATIN 10 MG TAB PO SCH (21:52)
[2016-10-03] MEDS: TAMSULOSIN HCL 0.4 MG CAP PO SCH (21:53)
[2016-10-04] VITALS (28 sets, daily range): BP systolic 115–147; BP diastolic 54–78; PULSE 53–76; RESP 17–22; TEMP 97.6–98.6; O2SAT 96–98
[2016-10-04] MEDS: AMPICILLIN-SULBACTAM INJ 3 GM in SODIUM CHLORIDE 0.9% INJ 100 ML IV SCH ×4 (02:00→19:53)
[2016-10-04 05:40] LABS: INTERNATIONAL NORMALIZED RATIO 2.5 RATIO; PROTHROMBIN TIME - PATIENT 28.9 SEC (9.8-11.6)
[2016-10-04 05:44] LABS: BICARBONATE 38.6 MEQ/L (21.0-32.0); MAGNESIUM 2.4 MG/DL (1.5-2.5); POTASSIUM 3.5 MEQ/L (3.5-5.1)
[2016-10-04] MEDS: PANTOPRAZOLE SOD 20 MG DELAYED RELEASE TAB PO SCH (08:41)
[2016-10-04] MEDS: guaiFENesin E.R. 600 MG TAB PO SCH ×2 (08:41→20:34)
[2016-10-04] MEDS: AMIODARONE 200 MG TAB PO SCH (08:41)
[2016-10-04] MEDS: FUROSEMIDE 40 MG TAB PO SCH ×2 (08:41→17:06)
[2016-10-04] MEDS: CARVEDILOL 12.5 MG TAB PO SCH ×2 (08:41→20:34)
[2016-10-04] MEDS: methylPREDNISolone SOD SUCC 40 MG/1 ML VIAL IV PUSH SCH ×2 (08:41→20:33)
[2016-10-04] MEDS: SODIUM CHLORIDE 0.9% FLUSH 5 ML FLUSH FLUSH SCH ×2 (08:42→19:54)
[2016-10-04] MEDS: POTASSIUM CHLORIDE 20 MEQ CONTROLLED RELEASE TAB PO SCH (08:42)
[2016-10-04] MEDS: ESCITALOPRAM OXALATE 10 MG TAB PO SCH (08:42)
[2016-10-04] MEDS: BUDESONIDE-FORMOTEROL 160/4.5 MCG INHALER INH SCH ×2 (08:43→20:35)
[2016-10-04] MEDS: SENNOSIDES 8.6 MG TAB PO SCH (09:00)
[2016-10-04] MEDS: POLYETHYLENE GLYCOL 17 GM PKG PO SCH (09:00)
[2016-10-04] MEDS: DOCUSATE SODIUM 100 MG CAP PO SCH ×2 (09:00→21:00)
[2016-10-04] MEDS: RESP: ALBUTEROL 2.5 MG/IPRATROPIUM 0.5 MG NEB (PRN) NEB ×3 (11:44→19:18)
[2016-10-04] MEDS ORDERED: POTASSIUM CHLORIDE 25 MEQ EFFERVESCENT TAB PO ONE (14:15)
--- NOTE | 2016-10-04 14:20 | HHI.PR ---
Subjective Remarks The patient still felt short of breath. He said he likes to have the Chavez catheter in place for convenience. He talked to his niece and believes he will be ready to go home with her care on Wednesday. He had several bowel movements yesterday. Discussed with nursing. Objective Vitals Vital Signs Date Time Temp Pulse Resp B/P Pulse Ox O2 Delivery O2 Flow Rate FiO2 10/04/16 11:46 98 Nasal Cannula 3.00 10/04/16 11:00 98.6 64 17 142/70 98 10/04/16 07:15 98.4 59 18 142/70 96 10/04/16 07:00 94 Nasal Cannula 3.00 10/04/16 07:00 58 10/04/16 06:00 58 10/04/16 05:00 58 10/04/16 04:00 58 10/04/16 04:00 98.5 63 18 147/78 98 10/04/16 03:00 58 10/04/16 02:00 58 10/04/16 01:00 76 10/04/16 00:00 74 10/04/16 00:00 97.6 73 18 139/78 98 10/03/16 23:00 76 10/03/16 22:00 72 10/03/16 21:00 58 10/03/16 20:00 96 Nasal Cannula 2.00 10/03/16 20:00 99.7 85 19 121/57 96 10/03/16 20:00 58 10/03/16 19:09 93 Nasal Cannula 2.00 10/03/16 18:00 60 10/03/16 17:00 60 10/03/16 16:00 59 10/03/16 15:30 97.9 60 19 137/69 96 10/03/16 15:00 60 I/O 10/03/16 10/03/16 10/03/16 10/04/16 10/04/16 10/04/16 07:00 15:00 23:00 07:00 15:00 23:00 Intake Total 680 ml 320 ml Output Total 950 ml 300 ml 500 ml 1201 ml Balance -270 ml -300 ml -500 ml -881 ml Intake Oral 480 ml 320 ml IV Total 200 ml Output Urine Total 950 ml 300 ml 500 ml 1200 ml Stool Total 1 ml # Bowel Movements 0 2 3 1 Result Diagram: 10/01/16 0630 10/04/16 0437 Imaging Last Impressions Chest X-Ray 09/30/16 0000 Signed Impressions: Service Date/Time: Friday, September 30, 2016 09:44 - CONCLUSION: 1. Persistent basilar density most characteristic of atelectasis or scarring. Left basilar scarring at the costophrenic angle. 2. 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 Luis Antonio Dunn MD Objective Remarks GENERAL: Elderly male in no acute distress. HEENT: PERRLA, EOMI. No scleral icterus or conjunctival pallor. No lid lag or facial droop. CARDIOVASCULAR: Regular rate and rhythm. No obvious murmurs to auscultation. No chest tenderness to palpation. RESPIRATORY: Improved wheezing, scattered rhonchi. GASTROINTESTINAL: Abdomen soft, non-tender, nondistended. BS normal. : Chavez in place with yellow urine. MUSCULOSKELETAL: Extremities without clubbing, cyanosis, or edema. No obvious deformities. NEUROLOGICAL: Awake, alert and oriented x4. No focal neurologic deficits. Moving both upper and lower extremities spontaneously. PSYCH: Mood and affect appropriate. Medications and IVs Current Medications Medications (Trade) Dose Ordered Sig/Yasmeen Route Start Time Stop Time Status Last Admin (Mucinex Er) 600 mg BID PO 09/28/16 09:00 10/04/16 08:41 (Symbicort 160-4.5 Inh) 2 puff Q12HR INH 09/28/16 09:00 10/04/16 08:43 (NS Flush) 2 ml UNSCH PRN FLUSH 09/28/16 04:15 (NS Flush) 2 ml BID FLUSH 09/28/16 09:00 10/04/16 08:42 (Zofran Inj) 4 mg Q6H PRN IVP 09/28/16 04:15 (Tylenol) 650 mg Q6H PRN PO 09/28/16 04:15 ([place] 5-325 Mg) 1 tab Q4H PRN PO 09/28/16 04:15 ([place] 10-325 Mg) 1 tab Q4H PRN PO 09/28/16 04:15 10/03/16 21:51 (Cordarone) 200 mg DAILY PO 09/28/16 09:00 10/04/16 08:41 (Lipitor) 10 mg HS PO 09/28/16 21:00 10/03/16 21:52 (KlonoPIN) 0.5 mg BID PRN PO 09/28/16 09:00 (Lexapro) 10 mg DAILY PO 09/28/16 09:00 10/04/16 08:42 (Protonix) 20 mg DAILY PO 09/28/16 09:00 10/04/16 08:41 Tamsulosin HCl 0.4 mg 0.4 mg HS PO 09/28/16 21:00 10/03/16 21:53 Pharmacy Profile Note 0 ml @ 0 mls/hr UNSCH OTHER 09/28/16 09:15 (Unasyn Inj/NS Inj) 100 ml @ 200 mls/hr Q6H IV 09/30/16 14:00 10/04/16 08:40 (Coreg) 6.25 mg BID PO 10/01/16 21:00 10/04/16 08:41 (Lasix) 40 mg BID@09,18 PO 10/01/16 18:00 10/04/16 08:41 (Coumadin) 1 mg DAILY@16 PO 10/02/16 16:00 10/03/16 15:40 (Colace) 100 mg BID PO 10/02/16 21:00 10/03/16 09:01 (KCl) 20 meq DAILY PO 10/03/16 09:00 10/04/16 08:42 (SoluMEDROL INJ) 40 mg BID IV PUSH 10/03/16 09:00 10/04/16 08:41 (Dulcolax Supp) 10 mg DAILY PRN RECTAL 10/03/16 12:45 (K-Lyte Cl Eff) 50 meq ONCE ONCE PO 10/04/16 14:15 10/04/16 14:16 UNV A/P Problem List: (1) COPD (chronic obstructive pulmonary disease) ICD Code: J44.9 Status: Acute (2) CHF (congestive heart failure) ICD Code: I50.9 Status: Acute (3) UTI (urinary tract infection) ICD Code: N39.0 Status: Acute (4) Renal insufficiency ICD Code: N28.9 Status: Acute (5) A-fib ICD Code: I48.91 Status: Acute Assessment and Plan COPD exacerbation The pt required BiPAP on admission, now on nasal cannula. Initial ABG w/ pH 7.31 , pCO2 77, pO2 117. Pulmonology consult appreciated. Sputum culture with normal respiratory prashant. Wheezing has improved 10/03. - Continue Solu-Medrol, DuoNeb, Symbicort, Mucinex. Wean Solumedrol to 40 mg IV BID 10/03. - Acapella. - continue Unasyn. - encourage ambulation. - PFTs per pulmonology. - Wean oxygen as tolerated. Acute on chronic CHF exacerbation Echo 10/25/14 w/ EF 30-35%. BNP 124. CXR w/ small effusion, +crackles on exam s /p Lasix 100mg x1 by EMS w/ good urine output. - Lasix 40 mg PO BID. - continue cardiac regimen. Decrease Coreg s/t bradycardia. UTI Urine growing ESBL e coli. The pt insists on keeping the Chavez in place for convenience. - continue Unasyn per sensitivities. - repeat UA 10/04. Consult ID if still positive. Renal Insufficiency Creatinine 1.38 on admission. Stable 10/04. - monitor while being diuresed. - avoid nephrotoxic agents. - Follow urine output. A-fib Chronic. INR therapeutic. - Resume home amiodarone and Coumadin. Generalized weakness The pt is sedentary. - PT/ OT/ case management consult. The pt would like to be discharged home rather than to a SNF when stable as he has a caregiver who lives with him. Hypokalemia Secondary to Lasix. - Replete and monitor. KCl 20 meq daily. DVT Prophylaxis: Coumadin. Discharge Planning Awaiting clinical improvement. Problem Qualifiers (1) UTI (urinary tract infection): Qualified Code: N39.0 - Urinary tract infection without hematuria, site unspecified Yohan Rothman DO Oct 04, 2016 14:20
[2016-10-04] MEDS: WARFARIN SOD 1 MG TAB PO SCH (14:55)
[2016-10-04 15:32] LABS: BACTERIA, URINE RARE /hpf; BLOOD, URINE NEG (NEG); GLUCOSE,URINE NEG (NEG); KETONE, URINE NEG (NEG); MUCUS URINE FEW /lpf (OCC); NITRITE,URINE NEG (NEG); URINE COLOR YELLOW (YELLW/STRAW)
[2016-10-04 15:35] LABS: COMMENT (UR) CATH-CULTURE IND; CULTURE IF INDICATED CATH CULTURE IND
--- NOTE | 2016-10-04 16:10 | HHI.PR ---
Subjective Remarks 76 YOWM with COPD exac,Resp insuff weaned to NC Mild sob no fever feels congested Acapella helps No Abd pain Fels weak, not getting out of bed Objective Vital Signs Vital Signs Date Time Temp Pulse Resp B/P Pulse Ox O2 Delivery O2 Flow Rate FiO2 10/04/16 15:14 98 Nasal Cannula 3.00 10/04/16 15:06 98.3 60 22 115/54 98 10/04/16 14:00 58 10/04/16 13:00 58 10/04/16 12:00 58 10/04/16 11:46 98 Nasal Cannula 3.00 10/04/16 11:00 58 10/04/16 11:00 98.6 64 17 142/70 98 10/04/16 10:00 58 10/04/16 09:00 58 10/04/16 08:00 58 10/04/16 07:15 98.4 59 18 142/70 96 10/04/16 07:00 94 Nasal Cannula 3.00 10/04/16 07:00 58 10/04/16 06:00 58 10/04/16 05:00 58 10/04/16 04:00 58 10/04/16 04:00 98.5 63 18 147/78 98 10/04/16 03:00 58 10/04/16 02:00 58 10/04/16 01:00 76 10/04/16 00:00 74 10/04/16 00:00 97.6 73 18 139/78 98 10/03/16 23:00 76 10/03/16 22:00 72 10/03/16 21:00 58 10/03/16 20:00 96 Nasal Cannula 2.00 10/03/16 20:00 99.7 85 19 121/57 96 10/03/16 20:00 58 10/03/16 19:09 93 Nasal Cannula 2.00 10/03/16 18:00 60 10/03/16 17:00 60 I/O 10/03/16 10/03/16 10/03/16 10/04/16 10/04/16 10/04/16 07:00 15:00 23:00 07:00 15:00 23:00 Intake Total 680 ml 320 ml Output Total 950 ml 300 ml 500 ml 1201 ml Balance -270 ml -300 ml -500 ml -881 ml Intake Oral 480 ml 320 ml IV Total 200 ml Output Urine Total 950 ml 300 ml 500 ml 1200 ml Stool Total 1 ml # Bowel Movements 0 2 3 1 Result Diagram: 10/01/16 0630 10/04/16 0437 Objective Remarks GENERAL: WBWN male, mild sob SKIN: Warm and dry. HEAD: Normocephalic. EYES: No scleral icterus. No injection or drainage. NECK: Supple, trachea midline. No JVD or lymphadenopathy. CARDIOVASCULAR: Regular rate and rhythm without murmurs, gallops, or rubs. RESPIRATORY: Breath sounds equal bilaterally. No accessory muscle use. Exp rhonchi GASTROINTESTINAL: Abdomen soft, non-tender, nondistended. MUSCULOSKELETAL: No cyanosis, or edema. BACK: Nontender without obvious deformity. No CVA tenderness. A/P Assessment and Plan COPD exac Resp insuff Resp acidosis AF CHF PLAN" Aerosol nebs Symbicort 2 puffs bid Cont Abx Acapella q 1 hr while awake Supplement 02 to keep sat >90% DC Plans underway. Bahman Villarreal MD Oct 04, 2016 16:10
[2016-10-04] MEDS: ATORVASTATIN 10 MG TAB PO SCH (20:33)
[2016-10-04] MEDS: TAMSULOSIN HCL 0.4 MG CAP PO SCH (20:34)
[2016-10-05] VITALS (25 sets, daily range): BP systolic 126–138; BP diastolic 51–65; PULSE 58–64; RESP 18–20; TEMP 97.4–98.6; O2SAT 97–99
[2016-10-05] MEDS: AMPICILLIN-SULBACTAM INJ 3 GM in SODIUM CHLORIDE 0.9% INJ 100 ML IV SCH ×4 (02:00→20:00)
[2016-10-05] MEDS: RESP: ALBUTEROL 2.5 MG/IPRATROPIUM 0.5 MG NEB (PRN) NEB ×2 (04:33→13:25)
[2016-10-05] MEDS: SODIUM CHLORIDE 0.9% FLUSH 5 ML FLUSH FLUSH SCH ×2 (08:12→20:59)
[2016-10-05] MEDS: DOCUSATE SODIUM 100 MG CAP PO SCH ×2 (08:13→20:58)
[2016-10-05] MEDS: methylPREDNISolone SOD SUCC 40 MG/1 ML VIAL IV PUSH SCH ×2 (08:13→20:58)
[2016-10-05] MEDS: PANTOPRAZOLE SOD 20 MG DELAYED RELEASE TAB PO SCH (08:13)
[2016-10-05] MEDS: AMIODARONE 200 MG TAB PO SCH (08:14)
[2016-10-05] MEDS: ESCITALOPRAM OXALATE 10 MG TAB PO SCH (08:14)
[2016-10-05] MEDS: POTASSIUM CHLORIDE 20 MEQ CONTROLLED RELEASE TAB PO SCH (08:14)
[2016-10-05] MEDS: guaiFENesin E.R. 600 MG TAB PO SCH ×2 (08:14→20:58)
[2016-10-05] MEDS: FUROSEMIDE 40 MG TAB PO SCH ×2 (08:14→18:17)
[2016-10-05] MEDS: CARVEDILOL 12.5 MG TAB PO SCH ×2 (08:14→20:58)
[2016-10-05] MEDS: BUDESONIDE-FORMOTEROL 160/4.5 MCG INHALER INH SCH ×2 (08:15→20:59)
[2016-10-05 08:21] LABS: HEMATOCRIT 38.4 % (39.0-51.0); MEAN CELL VOLUME 88.4 FL (80.0-100.0); MEAN CORPUSCULAR HEMOGLOBIN 27.9 PG (27.0-34.0); MEAN CORPUSCULAR HGB CONC 31.5 % (32.0-36.0); PLATELET COUNT 125 TH/MM3 (150-450); RED BLOOD COUNT 4.34 MIL/MM3 (4.50-5.90); RED CELL DISTRIBUTION WIDTH 16.8 % (11.6-17.2); REVIEW FLAG FINAL; WHITE BLOOD COUNT 8.8 TH/MM3 (4.0-11.0)
[2016-10-05 08:33] LABS: PROTHROMBIN TIME - PATIENT 25.5 SEC (9.8-11.6)
[2016-10-05 08:37] LABS: INTERNATIONAL NORMALIZED RATIO 2.2 RATIO
[2016-10-05 08:55] LABS: BICARBONATE 38.7 MEQ/L (21.0-32.0); MAGNESIUM 2.5 MG/DL (1.5-2.5); POTASSIUM 4.4 MEQ/L (3.5-5.1)
--- NOTE | 2016-10-05 10:35 | HHI.PR ---
Subjective Remarks fairly comfortable. still with mild sob and occasional cough. no fever. Objective Vitals Vital Signs Date Time Temp Pulse Resp B/P Pulse Ox O2 Delivery O2 Flow Rate FiO2 10/05/16 09:00 58 10/05/16 08:00 58 10/05/16 07:00 98.2 60 18 129/65 99 10/05/16 07:00 99 Nasal Cannula 2.00 10/05/16 07:00 60 10/05/16 06:00 59 10/05/16 05:00 59 10/05/16 04:00 60 10/05/16 04:00 98.6 64 18 126/51 97 10/05/16 03:00 59 10/05/16 02:00 59 10/05/16 01:00 59 10/05/16 00:00 59 10/05/16 00:00 98.1 60 18 138/60 97 10/04/16 23:00 58 10/04/16 22:00 58 10/04/16 21:00 58 10/04/16 20:00 98.6 61 18 127/62 96 10/04/16 20:00 60 10/04/16 19:28 96 Nasal Cannula 2.00 10/04/16 19:00 58 10/04/16 18:06 59 10/04/16 17:09 53 10/04/16 16:34 58 10/04/16 15:14 98 Nasal Cannula 3.00 10/04/16 15:06 98.3 60 22 115/54 98 10/04/16 15:00 59 10/04/16 14:00 58 10/04/16 13:00 58 10/04/16 12:00 58 10/04/16 11:46 98 Nasal Cannula 3.00 10/04/16 11:00 58 10/04/16 11:00 98.6 64 17 142/70 98 I/O 10/04/16 10/04/16 10/04/16 10/05/16 10/05/16 10/05/16 07:00 15:00 23:00 07:00 15:00 23:00 Intake Total 320 ml 1400 ml 320 ml Output Total 1201 ml 900 ml 1200 ml Balance -881 ml 500 ml -880 ml Intake Oral 320 ml 1200 ml 320 ml IV Total 200 ml Output Urine Total 1200 ml 900 ml 1200 ml Stool Total 1 ml # Bowel Movements 1 0 0 Result Diagram: 10/05/16 0704 10/05/16 0704 Imaging Last Impressions Chest X-Ray 09/30/16 0000 Signed Impressions: Service Date/Time: Friday, September 30, 2016 09:44 - CONCLUSION: 1. Persistent basilar density most characteristic of atelectasis or scarring. Left basilar scarring at the costophrenic angle. 2. 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 Luis Antonio Dunn MD Objective Remarks GENERAL: This is a well-nourished, well-developed patient, in no apparent distress. CARDIOVASCULAR: Regular rate and regular rhythm without murmurs, gallops, or rubs. RESPIRATORY: Clear to auscultation. Breath sounds equal bilaterally. No wheezes , rales, or rhonchi. GASTROINTESTINAL: Abdomen soft, non-tender, nondistended. Normal, active bowel sounds MUSCULOSKELETAL: Extremities without clubbing, cyanosis, or edema. NEURO: Alert & Oriented x4 to person, place, time, situation. Moves all ext x4 Procedures intubation Medications and IVs Current Medications IV Flush (NS Flush) 2 ml UNSCH PRN IVF FLUSH AFTER USING IV ACCESS; Start 09/28 at 01:45; Stop 09/28/16 at 04:21; Status DC IV Flush (NS Flush) 2 ml UNSCH PRN IVF FLUSH AFTER USING IV ACCESS; Start 09/28 at 03:00; Stop 09/28/16 at 04:21; Status DC Methylprednisolone Sodium Succinate (SoluMEDROL INJ) 125 mg ONCE ONCE IVP Last administered on 09/28/16 03:00; Start 09/28/16 at 03:00; Stop 09/28/16 at 03:01; Status DC Albuterol/ Ipratropium (Duoneb Neb) 1 ampule Q15M INH Last administered on 09/28 04:13; Start 09/28/16 at 03:00; Stop 09/28/16 at 03:16; Status DC Methylprednisolone Sodium Succinate (SoluMEDROL INJ) 40 mg Q6H IV PUSH Last administered on 10/03/16 01:30; Start 09/28/16 at 09:00; Stop 10/03/16 at 08:43; Status DC Albuterol/ Ipratropium (Duoneb Neb) 1 ampule Q4HR WHILE AWAKE NEB NEB Last administered on 10/01/16 20:43; Start 09/28/16 at 08:00; Stop 10/02/16 at 08:00; Status DC Albuterol/ Ipratropium (Duoneb Neb) 1 ampule Q2HR NEB PRN NEB SOB/WHEEZING Last administered on 10/05/16 04:33; Start 09/28/16 at 04:15 Guaifenesin (Mucinex Er) 600 mg BID PO Last administered on 10/05/16 08:14; Start 09/28/16 at 09:00 Budesonide/ Formoterol Fumarate 2 puff 2 puff Q12HR INH Last administered on 08:15; Start 09/28/16 at 09:00 Ceftriaxone Sodium/Sodium Chloride (Rocephin Inj/NS Inj) 100 ml @ 200 mls/hr Q24H IV Last administered on 09/28/16 05:56; Start 09/28/16 at 05:00; Stop at 09:16; Status DC IV Flush (NS Flush) 2 ml UNSCH PRN FLUSH FLUSH AFTER USING IV ACCESS; Start at 04:15 IV Flush (NS Flush) 2 ml BID FLUSH Last administered on 10/05/16 08:12; Start 09/28/16 at 09:00 Ondansetron HCl (Zofran Inj) 4 mg Q6H PRN IVP NAUSEA OR VOMITING; Start at 04:15 Bisacodyl (Dulcolax Supp) 10 mg DAILY PRN [place] CONSTIPATION; Start 09/28/16 at 04 :15; Stop 10/03/16 at 12:35; Status DC Acetaminophen (Tylenol) 650 mg Q6H PRN PO FEVER/PAIN SCALE 1 TO 2; Start at 04:15 Acetaminophen/ Hydrocodone Bitart ([place] 5-325 Mg) 1 tab Q4H PRN PO PAIN SCALE 3 TO 5 Last administered on 10/05/16 08:13; Start 09/28/16 at 04:15 Acetaminophen/ Hydrocodone Bitart ([place] 10-325 Mg) 1 tab Q4H PRN PO PAIN SCALE 6 TO 10 Last administered on 10/03/16 21:51; Start 09/28/16 at 04:15 Amiodarone HCl (Cordarone) 200 mg DAILY PO Last administered on 10/05/16 08:14 ; Start 09/28/16 at 09:00 Atorvastatin Calcium (Lipitor) 10 mg HS PO Last administered on 10/04/16 20:33 ; Start 09/28/16 at 21:00 Carvedilol (Coreg) 12.5 mg BID PO Last administered on 09/30/16 20:59; Start at 09:00; Stop 10/01/16 at 10:28; Status DC Clonazepam (KlonoPIN) 0.5 mg BID PRN PO anxiety; Start 09/28/16 at 09:00 Escitalopram Oxalate (Lexapro) 10 mg DAILY PO Last administered on 10/05/16 08: 14; Start 09/28/16 at 09:00 Furosemide (Lasix) 40 mg DAILY PO Last administered on 09/29/16 09:15; Start 09/28/16 at 09:00; Stop 09/29/16 at 14:59; Status DC Pantoprazole Sodium (Protonix) 20 mg DAILY PO Last administered on 10/05/16 08: 13; Start 09/28/16 at 09:00 Tamsulosin HCl (Flomax) 0.4 mg HS PO Last administered on 10/04/16 20:34; Start 09/28/16 at 21:00 Warfarin Sodium 3 mg 3 mg DAILY@16 PO ; Start 09/28/16 at 16:00; Stop 09/28/16 at 16:00; Status DC Pharmacy Profile Note 0 ml @ 0 mls/hr UNSCH OTHER ; Start 09/28/16 at 09:15 Cefepime HCl/ Sodium Chloride (Maxipime Inj/NS Inj) 100 ml @ 200 mls/hr Q8H IV Last administered on 09/29/16 06:24; Start 09/28/16 at 14:00; Stop 09/29/16 at 12:09; Status DC Warfarin Sodium (Coumadin) 2 mg DAILY@16 PO Last administered on 10/01/16 16:33 ; Start 09/28/16 at 16:00; Stop 10/02/16 at 08:19; Status DC Patient Medication Teaching 1 1 ONCE ONCE XX Last administered on 09/28/16 16 :56; Start 09/28/16 at 16:00; Stop 09/28/16 at 16:01; Status DC Cefepime HCl/ Sodium Chloride (Maxipime Inj/NS Inj) 100 ml @ 200 mls/hr Q12H IV Last administered on 09/30/16 05:34; Start 09/29/16 at 18:00; Stop 09/30/16 at 13:27; Status DC Furosemide (Lasix Inj) 40 mg BID@,18 IV PUSH ; Start 09/29/16 at 15:00; Stop 09/29/16 at 15:25; Status DC Furosemide (Lasix Inj) 40 mg BID@,18 IV PUSH Last administered on 10/01/16 08 :50; Start 09/29/16 at 18:00; Stop 10/01/16 at 10:28; Status DC Potassium Bicarb/ Potassium Chloride 50 meq 50 meq ONCE ONCE PO Last administered on 09/30/16 09:25; Start 09/30/16 at 08:30; Stop 09/30/16 at 08:46; Status DC Ampicillin Sodium/ Sulbactam Sodium/ Sodium Chloride (Unasyn Inj/NS Inj) 100 ml @ 200 mls/hr Q6H IV Last administered on 10/05/16 08:12; Start 09/30/16 at 14: 00 Carvedilol (Coreg) 6.25 mg BID PO Last administered on 10/05/16 08:14; Start at 21:00 Furosemide (Lasix) 40 mg BID@,18 PO Last administered on 10/05/16 08:14; Start 10/01/16 at 18:00 Warfarin Sodium (Coumadin) 1 mg DAILY@16 PO Last administered on 10/04/16 14:55 ; Start 10/02/16 at 16:00 Potassium Bicarb/ Potassium Chloride (K-Lyte Cl Eff) 50 meq ONCE ONCE PO Last administered on 10/02/16 16:00; Start 10/02/16 at 16:00; Stop 10/02/16 at 16: 01; Status DC Docusate Sodium (Colace) 100 mg BID PO Last administered on 10/05/16 08:13; Start 10/02/16 at 21:00 Sennosides (Senokot) 17.2 mg DAILY PO Last administered on 10/03/16 09:01; Start 10/02/16 at 17:00; Stop 10/04/16 at 13:50; Status DC Polyethylene Glycol (Miralax) 17 gm DAILY PO Last administered on 10/03/16 09: 00; Start 10/02/16 at 17:00; Stop 10/04/16 at 13:50; Status DC Potassium Chloride (KCl) 20 meq DAILY PO Last administered on 10/05/16 08:14; Start 10/03/16 at 09:00 Methylprednisolone Sodium Succinate (SoluMEDROL INJ) 40 mg BID IV PUSH Last administered on 10/05/16 08:13; Start 10/03/16 at 09:00 Lactulose (Lactulose Liq) 30 ml ONCE ONCE PO Last administered on 10/03/16 09: 10; Start 10/03/16 at 08:45; Stop 10/03/16 at 08:52; Status DC Bisacodyl (Dulcolax Supp) 10 mg DAILY PRN RECTAL constipation; Start 10/03/16 at 12:45 Potassium Bicarb/ Potassium Chloride (K-Lyte Cl Eff) 50 meq ONCE ONCE PO Last administered on 10/04/16 14:54; Start 10/04/16 at 14:15; Stop 10/04/16 at 14: 19; Status DC A/P Assessment and Plan A/P COPD exacerbation- improving. -continue steroids- will switch to po soon. - continue Unasyn. - encourage ambulation. - PFTs per pulmonology. - Wean oxygen as tolerated. Acute on chronic systolic CHF exacerbation Echo 10/25/14 w/ EF 30-35%. BNP 124. CXR w/ small effusion, +crackles on exam s /p Lasix 100mg x1 by EMS w/ good urine output. - Lasix 40 mg PO BID. - continue cardiac regimen. Decrease Coreg s/t bradycardia. -no OMAR-I due to DORIS at the time of presentation- will consider adding OMAR-I as outpatient if renal function remains stable. UTI Urine growing ESBL e coli. The pt insists on keeping the Paz in place for convenience- will dc paz cath later this evening. - continue Unasyn per sensitivities. - repeat UA 10/04 negative. Renal Insufficiency Creatinine 1.38 on admission. Stable 10/04. - monitor while being diuresed. - avoid nephrotoxic agents. - Follow urine output. A-fib Chronic. INR therapeutic. - Resumed home amiodarone and Coumadin. Generalized weakness The pt is sedentary. - PT/ OT/ case management consult. The pt would like to be discharged home rather than to a SNF when stable as he has a caregiver who lives with him. Hypokalemia Secondary to Lasix. - replaced. DVT Prophylaxis: Coumadin. Discharge Planning dc home in am if stable. David Pratt MD Oct 05, 2016 10:14
[2016-10-05] MEDS: WARFARIN SOD 1 MG TAB PO SCH (15:38)
--- NOTE | 2016-10-05 18:58 | HHI.PR ---
Subjective Remarks 76 YOWM with COPD exac,Resp insuff weaned to NC Mild sob no fever feels congested Acapella helps has constipation now Objective Vital Signs Vital Signs Date Time Temp Pulse Resp B/P Pulse Ox O2 Delivery O2 Flow Rate FiO2 10/05/16 18:00 58 10/05/16 17:00 59 10/05/16 16:00 63 10/05/16 15:00 59 10/05/16 15:00 98.0 60 20 126/54 97 10/05/16 14:00 60 10/05/16 13:25 97 Nasal Cannula 3.00 10/05/16 13:00 60 10/05/16 12:00 58 10/05/16 11:00 59 10/05/16 11:00 97.4 60 18 134/56 98 10/05/16 10:00 58 10/05/16 09:00 58 10/05/16 08:00 58 10/05/16 07:00 98.2 60 18 129/65 99 10/05/16 07:00 99 Nasal Cannula 2.00 10/05/16 07:00 60 10/05/16 06:00 59 10/05/16 05:00 59 10/05/16 04:00 60 10/05/16 04:00 98.6 64 18 126/51 97 10/05/16 03:00 59 10/05/16 02:00 59 10/05/16 01:00 59 10/05/16 00:00 59 10/05/16 00:00 98.1 60 18 138/60 97 10/04/16 23:00 58 10/04/16 22:00 58 10/04/16 21:00 58 10/04/16 20:00 98.6 61 18 127/62 96 10/04/16 20:00 60 10/04/16 19:28 96 Nasal Cannula 2.00 10/04/16 19:00 58 I/O 10/04/16 10/04/16 10/04/16 10/05/16 10/05/16 10/05/16 07:00 15:00 23:00 07:00 15:00 23:00 Intake Total 320 ml 1400 ml 320 ml 970 ml Output Total 1201 ml 900 ml 1200 ml 750 ml Balance -881 ml 500 ml -880 ml 220 ml Intake Oral 320 ml 1200 ml 320 ml 970 ml IV Total 200 ml Output Urine Total 1200 ml 900 ml 1200 ml 750 ml Stool Total 1 ml # Bowel Movements 1 0 0 Result Diagram: 10/05/1670310/05/16703 Objective Remarks GENERAL: WBWN male, mild sob SKIN: Warm and dry. HEAD: Normocephalic. EYES: No scleral icterus. No injection or drainage. NECK: Supple, trachea midline. No JVD or lymphadenopathy. CARDIOVASCULAR: Regular rate and rhythm without murmurs, gallops, or rubs. RESPIRATORY: Breath sounds equal bilaterally. No accessory muscle use. Exp rhonchi GASTROINTESTINAL: Abdomen soft, non-tender, nondistended. MUSCULOSKELETAL: No cyanosis, or edema. BACK: Nontender without obvious deformity. No CVA tenderness. A/P Assessment and Plan COPD exac Resp insuff Resp acidosis AF CHF PLAN" Aerosol nebs Symbicort 2 puffs bid Cont Abx Acapella q 1 hr while awake Supplement 02 to keep sat >90% Dulcolax supp prn Bahman Villarreal MD Oct 05, 2016 18:58
[2016-10-05] MEDS ORDERED: BISACODYL 10 MG SUPP RECTAL ONE (19:00)
[2016-10-05] MEDS: TAMSULOSIN HCL 0.4 MG CAP PO SCH (20:58)
[2016-10-05] MEDS: ATORVASTATIN 10 MG TAB PO SCH (20:58)
[2016-10-06] VITALS (15 sets, daily range): BP systolic 111–155; BP diastolic 53–57; PULSE 53–87; RESP 18–20; TEMP 97–98; O2SAT 91–98
[2016-10-06] MEDS: AMPICILLIN-SULBACTAM INJ 3 GM in SODIUM CHLORIDE 0.9% INJ 100 ML IV SCH ×3 (04:24→14:00)
[2016-10-06 06:48] LABS: INTERNATIONAL NORMALIZED RATIO 2.2 RATIO; PROTHROMBIN TIME - PATIENT 25.2 SEC (9.8-11.6)
[2016-10-06] MEDS: RESP: ALBUTEROL 2.5 MG/IPRATROPIUM 0.5 MG NEB (PRN) NEB (09:24)
[2016-10-06] MEDS: SODIUM CHLORIDE 0.9% FLUSH 5 ML FLUSH FLUSH SCH (09:47)
[2016-10-06] MEDS: BUDESONIDE-FORMOTEROL 160/4.5 MCG INHALER INH SCH (09:48)
[2016-10-06] MEDS: PANTOPRAZOLE SOD 20 MG DELAYED RELEASE TAB PO SCH (09:49)
[2016-10-06] MEDS: POTASSIUM CHLORIDE 20 MEQ CONTROLLED RELEASE TAB PO SCH (09:49)
[2016-10-06] MEDS: guaiFENesin E.R. 600 MG TAB PO SCH (09:49)
[2016-10-06] MEDS: DOCUSATE SODIUM 100 MG CAP PO SCH (09:49)
[2016-10-06] MEDS: AMIODARONE 200 MG TAB PO SCH (09:49)
[2016-10-06] MEDS: FUROSEMIDE 40 MG TAB PO SCH (09:49)
[2016-10-06] MEDS: methylPREDNISolone SOD SUCC 40 MG/1 ML VIAL IV PUSH SCH (09:49)
[2016-10-06] MEDS: ESCITALOPRAM OXALATE 10 MG TAB PO SCH (09:49)
[2016-10-06] MEDS: CARVEDILOL 12.5 MG TAB PO SCH (09:50)
--- NOTE | 2016-10-06 10:03 | HHI.PR ---
Subjective Remarks in no acute distress. on two liters of oxygen via N/C which is his baseline. no new complaints. d/w the RN and no acute issues over night. Objective Vitals Vital Signs Date Time Temp Pulse Resp B/P Pulse Ox O2 Delivery O2 Flow Rate FiO2 10/06/16 09:27 96 Nasal Cannula 2.00 10/06/16 09:00 69 10/06/16 08:00 67 10/06/16 07:00 97.1 60 18 155/56 98 10/06/16 07:00 87 10/06/16 07:00 98 Nasal Cannula 2.00 10/06/16 06:00 59 10/06/16 05:00 60 10/06/16 04:00 60 10/06/16 04:00 97.9 59 18 119/53 98 10/06/16 03:00 59 10/06/16 02:00 58 10/06/16 01:00 59 10/06/16 00:00 98.0 59 18 130/55 98 10/06/16 00:00 58 10/05/16 23:00 58 10/05/16 22:00 58 10/05/16 21:48 96 Nasal Cannula 2.00 10/05/16 21:00 59 10/05/16 20:00 58 10/05/16 20:00 97.9 60 18 135/53 98 10/05/16 19:00 58 10/05/16 18:00 58 10/05/16 17:00 59 10/05/16 16:00 63 10/05/16 15:00 59 10/05/16 15:00 98.0 60 20 126/54 97 10/05/16 14:00 60 10/05/16 13:25 97 Nasal Cannula 3.00 10/05/16 13:00 60 10/05/16 12:00 58 10/05/16 11:00 59 10/05/16 11:00 97.4 60 18 134/56 98 10/05/16 10:00 58 I/O 10/05/16 10/05/16 10/05/16 10/06/16 10/06/16 10/06/16 07:00 15:00 23:00 07:00 15:00 23:00 Intake Total 320 ml 970 ml 240 ml Output Total 1200 ml 750 ml 1100 ml Balance -880 ml 220 ml -860 ml Intake Oral 320 ml 970 ml 240 ml Output Urine Total 1200 ml 750 ml 1100 ml # Bowel Movements 0 Result Diagram: 10/05/16 0704 10/05/16 0704 Imaging Last Impressions Chest X-Ray 09/30/16 0000 Signed Impressions: Service Date/Time: Friday, September 30, 2016 09:44 - CONCLUSION: 1. Persistent basilar density most characteristic of atelectasis or scarring. Left basilar scarring at the costophrenic angle. 2. 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 Luis Antonio Dunn MD Objective Remarks GENERAL: This is a well-nourished, well-developed patient, in no apparent distress. CARDIOVASCULAR: Regular rate and regular rhythm without murmurs, gallops, or rubs. RESPIRATORY: mild bilateral wheezing GASTROINTESTINAL: Abdomen soft, non-tender, nondistended. Normal, active bowel sounds MUSCULOSKELETAL: Extremities without clubbing, cyanosis, or edema. NEURO: Alert & Oriented x4 to person, place, time, situation. Moves all ext x4 Procedures intubation Medications and IVs Current Medications IV Flush (NS Flush) 2 ml UNSCH PRN IVF FLUSH AFTER USING IV ACCESS; Start 09/28 at 01:45; Stop 09/28/16 at 04:21; Status DC IV Flush (NS Flush) 2 ml UNSCH PRN IVF FLUSH AFTER USING IV ACCESS; Start 09/28 at 03:00; Stop 09/28/16 at 04:21; Status DC Methylprednisolone Sodium Succinate (SoluMEDROL INJ) 125 mg ONCE ONCE IVP Last administered on 09/28/16 03:00; Start 09/28/16 at 03:00; Stop 09/28/16 at 03:01; Status DC Albuterol/ Ipratropium (Duoneb Neb) 1 ampule Q15M INH Last administered on 09/28 04:13; Start 09/28/16 at 03:00; Stop 09/28/16 at 03:16; Status DC Methylprednisolone Sodium Succinate (SoluMEDROL INJ) 40 mg Q6H IV PUSH Last administered on 10/03/16 01:30; Start 09/28/16 at 09:00; Stop 10/03/16 at 08:43; Status DC Albuterol/ Ipratropium (Duoneb Neb) 1 ampule Q4HR WHILE AWAKE NEB NEB Last administered on 10/01/16 20:43; Start 09/28/16 at 08:00; Stop 10/02/16 at 08:00; Status DC Albuterol/ Ipratropium (Duoneb Neb) 1 ampule Q2HR NEB PRN NEB SOB/WHEEZING Last administered on 10/06/16 09:24; Start 09/28/16 at 04:15 Guaifenesin (Mucinex Er) 600 mg BID PO Last administered on 10/06/16 09:49; Start 09/28/16 at 09:00 Budesonide/ Formoterol Fumarate 2 puff 2 puff Q12HR INH Last administered on 09:48; Start 09/28/16 at 09:00 Ceftriaxone Sodium/Sodium Chloride (Rocephin Inj/NS Inj) 100 ml @ 200 mls/hr Q24H IV Last administered on 09/28/16 05:56; Start 09/28/16 at 05:00; Stop at 09:16; Status DC IV Flush (NS Flush) 2 ml UNSCH PRN FLUSH FLUSH AFTER USING IV ACCESS; Start at 04:15 IV Flush (NS Flush) 2 ml BID FLUSH Last administered on 10/06/16 09:47; Start 09/28/16 at 09:00 Ondansetron HCl (Zofran Inj) 4 mg Q6H PRN IVP NAUSEA OR VOMITING; Start at 04:15 Bisacodyl (Dulcolax Supp) 10 mg DAILY PRN [place] CONSTIPATION; Start 09/28/16 at 04 :15; Stop 10/03/16 at 12:35; Status DC Acetaminophen (Tylenol) 650 mg Q6H PRN PO FEVER/PAIN SCALE 1 TO 2; Start at 04:15 Acetaminophen/ Hydrocodone Bitart ([place] 5-325 Mg) 1 tab Q4H PRN PO PAIN SCALE 3 TO 5 Last administered on 10/05/16 08:13; Start 09/28/16 at 04:15 Acetaminophen/ Hydrocodone Bitart ([place] 10-325 Mg) 1 tab Q4H PRN PO PAIN SCALE 6 TO 10 Last administered on 10/03/16 21:51; Start 09/28/16 at 04:15 Amiodarone HCl (Cordarone) 200 mg DAILY PO Last administered on 10/06/16 09:49 ; Start 09/28/16 at 09:00 Atorvastatin Calcium (Lipitor) 10 mg HS PO Last administered on 10/05/16 20:58 ; Start 09/28/16 at 21:00 Carvedilol (Coreg) 12.5 mg BID PO Last administered on 09/30/16 20:59; Start at 09:00; Stop 10/01/16 at 10:28; Status DC Clonazepam (KlonoPIN) 0.5 mg BID PRN PO anxiety; Start 09/28/16 at 09:00 Escitalopram Oxalate (Lexapro) 10 mg DAILY PO Last administered on 10/06/16 09: 49; Start 09/28/16 at 09:00 Furosemide (Lasix) 40 mg DAILY PO Last administered on 09/29/16 09:15; Start 09/28/16 at 09:00; Stop 09/29/16 at 14:59; Status DC Pantoprazole Sodium (Protonix) 20 mg DAILY PO Last administered on 10/06/16 09: 49; Start 09/28/16 at 09:00 Tamsulosin HCl (Flomax) 0.4 mg HS PO Last administered on 10/05/16 20:58; Start 09/28/16 at 21:00 Warfarin Sodium 3 mg 3 mg DAILY@16 PO ; Start 09/28/16 at 16:00; Stop 09/28/16 at 16:00; Status DC Pharmacy Profile Note 0 ml @ 0 mls/hr UNSCH OTHER ; Start 09/28/16 at 09:15 Cefepime HCl/ Sodium Chloride (Maxipime Inj/NS Inj) 100 ml @ 200 mls/hr Q8H IV Last administered on 09/29/16 06:24; Start 09/28/16 at 14:00; Stop 09/29/16 at 12:09; Status DC Warfarin Sodium (Coumadin) 2 mg DAILY@16 PO Last administered on 10/01/16 16:33 ; Start 09/28/16 at 16:00; Stop 10/02/16 at 08:19; Status DC Patient Medication Teaching 1 1 ONCE ONCE XX Last administered on 09/28/16 16 :56; Start 09/28/16 at 16:00; Stop 09/28/16 at 16:01; Status DC Cefepime HCl/ Sodium Chloride (Maxipime Inj/NS Inj) 100 ml @ 200 mls/hr Q12H IV Last administered on 09/30/16 05:34; Start 09/29/16 at 18:00; Stop 09/30/16 at 13:27; Status DC Furosemide (Lasix Inj) 40 mg BID@,18 IV PUSH ; Start 09/29/16 at 15:00; Stop 09/29/16 at 15:25; Status DC Furosemide (Lasix Inj) 40 mg BID@,18 IV PUSH Last administered on 10/01/16 08 :50; Start 09/29/16 at 18:00; Stop 10/01/16 at 10:28; Status DC Potassium Bicarb/ Potassium Chloride 50 meq 50 meq ONCE ONCE PO Last administered on 09/30/16 09:25; Start 09/30/16 at 08:30; Stop 09/30/16 at 08:46; Status DC Ampicillin Sodium/ Sulbactam Sodium/ Sodium Chloride (Unasyn Inj/NS Inj) 100 ml @ 200 mls/hr Q6H IV Last administered on 10/06/16 09:47; Start 09/30/16 at 14: 00 Carvedilol (Coreg) 6.25 mg BID PO Last administered on 10/06/16 09:50; Start at 21:00 Furosemide (Lasix) 40 mg BID@,18 PO Last administered on 10/06/16 09:49; Start 10/01/16 at 18:00 Warfarin Sodium (Coumadin) 1 mg DAILY@16 PO Last administered on 10/05/16 15:38 ; Start 10/02/16 at 16:00 Potassium Bicarb/ Potassium Chloride (K-Lyte Cl Eff) 50 meq ONCE ONCE PO Last administered on 10/02/16 16:00; Start 10/02/16 at 16:00; Stop 10/02/16 at 16: 01; Status DC Docusate Sodium (Colace) 100 mg BID PO Last administered on 10/06/16 09:49; Start 10/02/16 at 21:00 Sennosides (Senokot) 17.2 mg DAILY PO Last administered on 10/03/16 09:01; Start 10/02/16 at 17:00; Stop 10/04/16 at 13:50; Status DC Polyethylene Glycol (Miralax) 17 gm DAILY PO Last administered on 10/03/16 09: 00; Start 10/02/16 at 17:00; Stop 10/04/16 at 13:50; Status DC Potassium Chloride (KCl) 20 meq DAILY PO Last administered on 10/06/16 09:49; Start 10/03/16 at 09:00 Methylprednisolone Sodium Succinate (SoluMEDROL INJ) 40 mg BID IV PUSH Last administered on 10/06/16 09:49; Start 10/03/16 at 09:00 Lactulose (Lactulose Liq) 30 ml ONCE ONCE PO Last administered on 10/03/16 09: 10; Start 10/03/16 at 08:45; Stop 10/03/16 at 08:52; Status DC Bisacodyl (Dulcolax Supp) 10 mg DAILY PRN RECTAL constipation; Start 10/03/16 at 12:45 Potassium Bicarb/ Potassium Chloride (K-Lyte Cl Eff) 50 meq ONCE ONCE PO Last administered on 10/04/16 14:54; Start 10/04/16 at 14:15; Stop 10/04/16 at 14: 19; Status DC Bisacodyl (Dulcolax Supp) 10 mg ONCE ONCE RECTAL ; Start 10/05/16 at 19:00; Stop 10/05/16 at 19:03; Status DC A/P Assessment and Plan A/P COPD exacerbation- improving. -continue steroids- will switch to po soon. - encourage ambulation. - PFTs per pulmonology. Acute on chronic systolic CHF exacerbation Echo 10/25/14 w/ EF 30-35%. BNP 124. CXR w/ small effusion, +crackles on exam s /p Lasix 100mg x1 by EMS w/ good urine output. - Lasix 40 mg PO BID. - continue cardiac regimen. Decrease Coreg s/t bradycardia. -no OMAR-I due to DORIS at the time of presentation- will consider adding OMAR-I as outpatient if renal function remains stable. UTI Urine growing ESBL e coli. The pt insists on keeping the Paz in place for convenience- will dc paz cath later this evening. - repeat UA 10/04 negative. Renal Insufficiency Creatinine 1.38 on admission. Stable 10/04. - monitor while being diuresed. - avoid nephrotoxic agents. - Follow urine output. A-fib Chronic. INR therapeutic. - Resumed home amiodarone and Coumadin. Generalized weakness The pt is sedentary. - PT/ OT/ case management consult. The pt would like to be discharged home rather than to a SNF when stable as he has a caregiver who lives with him. Hypokalemia Secondary to Lasix. - replaced. DVT Prophylaxis: Coumadin. Discharge Planning dc home today. see med list. f/u with PCP and pulmonary. d/w the patient. d/w the RN. d/w . time spent 31 min. David Pratt MD Oct 06, 2016 10:03 David Pratt MD Oct 06, 2016 10:03
[2016-10-06] MEDS ORDERED: CARV12.5 PO (10:06)
[2016-10-06] MEDS ORDERED: SYMB160A INH (10:06)
[2016-10-06] MEDS ORDERED: PRED5TAB PO (10:06)
--- NOTE | 2016-10-06 10:07 | HHI.DCPOC ---
Discharge Care Plan Diagnosis: (1) COPD exacerbation Your Health Problems Are: Shortness of Breath Goals to Promote Your Health * To prevent worsening of your condition and complications * To maintain your health at the optimal level Directions to Meet Your Goals Take your medications as prescribed Follow your dietary instruction Follow activity as directed Keep your appointments as scheduled Take your immunizations and boosters as scheduled If your symptoms worsen call your PCP, if no PCP go to Urgent Care Center or Emergency Room Smoking is Dangerous to Your Health. Avoid second hand smoke Call the 24-hour hour crisis hotline for domestic abuse at David Pratt MD Oct 06, 2016 10:07
--- NOTE | 2016-10-06 10:09 | HHI.DS ---
Discharge Summary Admission Date Sep 28, 2016 at 04:05 Discharge Date: Oct 06, 2016 Admitting Diagnosis COPD exacerbation (1) COPD (chronic obstructive pulmonary disease) ICD Code: J44.9 Diagnosis: Principal (2) CHF (congestive heart failure) ICD Code: I50.9 Diagnosis: Principal (3) UTI (urinary tract infection) ICD Code: N39.0 Diagnosis: Secondary (4) Renal insufficiency ICD Code: N28.9 Diagnosis: Secondary (5) A-fib ICD Code: I48.91 Diagnosis: Secondary Procedures intubation Brief History - From Admission This is a 76-year-old male with a PMH of HTN, CAD, CHF (Echo 10/25/14 w/ EF 30-35 %), s/p AICD, A-fib on Coumadin, Anxiety, Depression and COPD who was brought to the ER by EMS secondary to SOB. Per pt he woke up from sleep w/ severe SOB. No c/o chest pain. Upon EMS arrival, O2 sat 98% on RA however significant work of breathing w/ crackles, s/p Lasix 100mg IV and started on CPAP. On arrival, BP 148/69, HR 78, O2 sat 100% on BiPAP 50% FiO2, Afebrile. WBC normal. Creatinine 1.38, previously 1. 249-1216. Troponin negative. BNP 124. INR 2.1. UA with mild UTI. CXR with mild basilar atelectasis and tiny left pleural effusion. ABG w/ pH 7.31, pCO2 77 and pO2 117 on BIPAP w/ 03/03 and 50% FIO2, pending repeat ABG on 08/03. S/p Solu-Medrol and DuoNeb w/ some improvement. CBC/BMP: 10/05/16 0704 10/05/16 0704 Significant Findings Laboratory Tests Test 10/04/16 10/04/16 10/05/16 10/06/16 04:37 15:00 07:04 05:42 Prothrombin Time 28.9 SEC 25.5 SEC 25.2 SEC (9.8-11.6) (9.8-11.6) (9.8-11.6) Carbon Dioxide Level 38.6 MEQ/L 38.7 MEQ/L (21.0-32.0) (21.0-32.0) Blood Urea Nitrogen 33 MG/DL (7-18) 34 MG/DL (7-18) Estimat Glomerular Filtration 57 ML/MIN (>89) 65 ML/MIN (>89) Rate Random Glucose 117 MG/DL 109 MG/DL (74-106) (74-106) Calcium Level 8.3 MG/DL (8.5-10.1) Urine Bacteria RARE /hpf (NONE) Urine Mucus FEW /lpf (OCC) Red Blood Count 4.34 MIL/MM3 (4.50-5.90) Hemoglobin 12.1 GM/DL (13.0-17.0) Hematocrit 38.4 % (39.0-51.0) Mean Corpuscular Hemoglobin 31.5 % Concent (32.0-36.0) Platelet Count 125 TH/MM3 (150-450) Chloride Level 97 MEQ/L (98-107) Imaging Last Impressions Chest X-Ray 09/30/16 0000 Signed Impressions: Service Date/Time: Friday, September 30, 2016 09:44 - CONCLUSION: 1. Persistent basilar density most characteristic of atelectasis or scarring. Left basilar scarring at the costophrenic angle. 2. 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 Luis Antonio Dunn MD PE at Discharge GENERAL: This is a well-nourished, well-developed patient, in no apparent distress. CARDIOVASCULAR: Regular rate and regular rhythm without murmurs, gallops, or rubs. RESPIRATORY: mild bilateral wheezing GASTROINTESTINAL: Abdomen soft, non-tender, nondistended. Normal, active bowel sounds MUSCULOSKELETAL: Extremities without clubbing, cyanosis, or edema. NEURO: Alert & Oriented x4 to person, place, time, situation. Moves all ext x4 Hospital Course COPD exacerbation- improving. -continue steroids- will switch to po soon. -received IV Abx - encourage ambulation. - PFTs per pulmonology. Acute on chronic systolic CHF exacerbation Echo 10/25/14 w/ EF 30-35%. BNP 124. CXR w/ small effusion, +crackles on exam s /p Lasix 100mg x1 by EMS w/ good urine output. - Lasix 40 mg PO BID. - continue cardiac regimen. Decrease Coreg s/t bradycardia. -no OMAR-I due to DORIS at the time of presentation- will consider adding OMAR-I as outpatient if renal function remains stable. UTI Urine growing ESBL e coli. - repeat UA and UC / negative. Renal Insufficiency Creatinine 1.38 on admission. Stable 10/04. - monitor while being diuresed. - avoid nephrotoxic agents. - Follow urine output. A-fib Chronic. INR therapeutic. - Resumed home amiodarone and Coumadin. Generalized weakness The pt is sedentary. - PT/ OT/ case management consult. The pt would like to be discharged home rather than to a SNF when stable as he has a caregiver who lives with him. Hypokalemia Secondary to Lasix. - replaced. DVT Prophylaxis: Coumadin. Pt Condition on Discharge: Fair Discharge Disposition: Discharge to SNF Discharge Time: > 30 minutes Discharge Instructions DIET: Follow Instructions for: Heart Healthy Diet Activities you can perform: Regular-No Restrictions Follow up Referrals: PCP Follow-up Pulmonology New Orders: PT/INR New Medications: Prednisone (Prednisone) 5 Mg Tab 5 MG PO DIRECTED 40 mg po daily for two days then 30 mg po daily for two days then 20 mg po daily for two days then 10 mg po daily for two days then 5 mg po daily for two days then stop. copd Days 10 Ref 0 TAB Budesonide-Formoterol Inh (Symbicort Inh) 160-4.5 Mcg/Act Aero 2 PUFF INH Q12HR copd #1 Ref 0 INHALER Carvedilol (Coreg) 12.5 Mg Tab 6.25 MG PO BID a-fib Days 30 Ref 0 TAB Changed Medications: Hydrocodone-Acetaminophen (Hydrocodone-Acetaminophen) 5-300 Mg Tab 1 TAB PO Q6HR PRN PAIN #20 Ref 0 TAB (Changed from: AC LUNCH) Ipratropium-Albuterol Neb (Duoneb) 0.5-2.5 Mg/3 Ml Neb 1 NEBULE INH Q6HR NEB PRN SHORTNESS OF BREATH #120 Ref 0 NEBULE (Medication details modified) Continued Medications: Albuterol 18 GM Inh (Ventolin Hfa 18 GM Inh) 90 Mcg/Act Aer 2 PUFF INH Q4-6H PRN SHORTNESS OF BREATH #1 Ref 0 INHALER Amiodarone (Amiodarone) 200 Mg Tab 200 MG PO DAILY Regulate Heart Beat #30 Ref 0 TAB Atorvastatin (Atorvastatin) 10 Mg Tab 10 MG PO HS Cholesterol Management #30 Ref 0 TAB Calcium Carbonate-Cholecalciferol (Calcium 600 with Vitamin D) 600-400 mg-Unit Tab 1 TAB PO BID Calcium Supplement Ref 0 TAB Clonazepam (Clonazepam) 0.5 Mg Tab 0.5 MG PO BID #20 Ref 0 TAB (This prescription has been renewed) Escitalopram (Escitalopram) 10 Mg Tab 10 MG PO DAILY #30 Ref 0 TAB Furosemide (Furosemide) 40 Mg Tab 40 MG PO DAILY #30 Ref 0 TAB Guaifenesin-Codeine Liq (Cheratussin AC Liq) 100-10 Mg/5 Ml Syrp 5 ML PO Q4H Do not exceed 6 doses/24 hrs. PRN COUGH AND COLD SYMPTOMS Ref 0 ML Omeprazole (Omeprazole) 20 Mg Tab 20 MG PO DAILY #30 Ref 0 TAB Potassium Chloride Microencaps (Klor-Con M20) 20 Meq Tab 20 MEQ PO Q12HR Electrolyte Replacement #60 Ref 0 TAB Tamsulosin (Tamsulosin) 0.4 Mg Cap 0.4 MG PO HS Manage Prostate Problems #30 Ref 0 CAP Warfarin (Warfarin) 3 Mg Tab 3 MG PO MONWEDFRISUN Blood Clot Prevention #30 Ref 0 TAB Warfarin (Warfarin) 3 Mg Tab 1.5 MG PO TUETHURSAT Blood Clot Prevention #30 Ref 0 TAB Discontinued Medications: Carvedilol (Carvedilol) 12.5 Mg Tab 12.5 MG PO BID #60 Ref 0 TAB Doxycycline Hyclate (Doxycycline Hyclate) 100 Mg Cap 100 MG PO BID Infection Ref 0 CAP Methylprednisolone (Medrol) 4 Mg Tab 4 MG PO DAILY Ref 0 TAB David Pratt MD Oct 06, 2016 10:09
--- NOTE | 2016-10-06 10:13 | HHI.FF ---
Face to Face Verification Diagnosis: (1) COPD (chronic obstructive pulmonary disease) Physical Therapy Order: Evaluate and Treat Home Health Nursing Order: Medical education Signs/symptoms of disease process Medication education-adverse effect Nursing assessment with vital signs I have seen patient Bradford Benjamin on 10/06/16. My clinical findings support the need for the requested home health care services because: Patient has SOB I certify that my clinical findings support that this patient is homebound because: Hx COPD- exertion dyspnea/weakness David Pratt MD Oct 06, 2016 10:13
[2016-10-06] MEDS ORDERED: CLON0.5T PO (13:39)
[2016-10-06] MEDS ORDERED: HYDR-4107 PO (13:39)
--- NOTE | 2016-10-06 13:42 | HHI.PR ---
Addendum To [facility] Progress Not Reason for addendum: Additonal documentation (notified that the patient is not able to ambulate; will change dc planning to SNF.) David Pratt MD Oct 06, 2016 13:42
[2016-10-06] MEDS ORDERED: IPRASOL INH (14:21)
[2016-10-06] MEDS: WARFARIN SOD 1 MG TAB PO SCH (14:50)
== END 2016-10-06 15:20 | DRG 190 ==
LOC: NEPE 01:27 → NEDA 04:05 → NEDH 10:06 → HCIN 09-29 22:30
PROVIDERS: ADMIT Internal Medicine; ATTEND Internal Medicine
PROC: 5A09357 Assistance with Respiratory Ventilation, Less than 24 Consecutive Hours, Continuous Positive Airway Pressure (ICD-10-PCS; principal; 2016-09-28)
DX: J44.1 Chronic obstructive pulmonary disease with (acute) exacerbation (principal); I50.23 Acute on chronic systolic (congestive) heart failure; N17.9 Acute kidney failure, unspecified; E87.2 Acidosis; N39.0 Urinary tract infection, site not specified; I42.9 Cardiomyopathy, unspecified; I48.2 Chronic atrial fibrillation; E86.0 Dehydration; I10 Essential (primary) hypertension; J98.11 Atelectasis; Z95.810 Presence of automatic (implantable) cardiac defibrillator; Z79.01 Long term (current) use of anticoagulants; F17.210 Nicotine dependence, cigarettes, uncomplicated; I25.10 Atherosclerotic heart disease of native coronary artery without angina pectoris; Z86.718 Personal history of other venous thrombosis and embolism; I25.2 Old myocardial infarction; M54.9 Dorsalgia, unspecified; B96.20 Unspecified Escherichia coli [E. coli] as the cause of diseases classified elsewhere; E87.6 Hypokalemia; K59.00 Constipation, unspecified; K21.9 Gastro-esophageal reflux disease without esophagitis; Z86.73 Personal history of transient ischemic attack (TIA), and cerebral infarction without residual deficits; Z99.81 Dependence on supplemental oxygen; R19.7 Diarrhea, unspecified; T50.1X5A Adverse effect of loop [high-ceiling] diuretics, initial encounter
CPT/HCPCS: 36600; 71010; 76937; 80048; 80053; 81001; 82550; 82805; 83735; 83880; 84484; 85025; 85027; 85610; 85730; 86403; 87070; 87077; 87086; 87186; 87205; 93005; 94002; 94003; 94640; 94664; 94667; 94668; 96374; J0295; J0692; J0696; J1940; J2920; J2930

== ENCOUNTER 2016-10-19 03:50 | Inpatient (IN) | payer MEDICARE, BC ==
[2016-10-19] VITALS (22 sets, daily range): BP systolic 106–133; BP diastolic 52–70; PULSE 60–71; RESP 16–25; TEMP 97.5–99; O2SAT 94–100
[~2016-10-19] VITALS: Ht 175.3 cm; Wt 101.3 kg
[~2016-10-19 03:50] MED LIST changes: -ALBU8I INH; -ATOR10TA PO; +ATOR10TA15 PO; -AUGM875T PO; +CALC1TAB87 PO; -CALTTAB5 PO; +CHERSYP2 PO; +CLON0.5T PO; -CLON1 PO; -COUM3TAB PO; -FURO20TA PO; +FURO40TA PO; +HYDR-4107 PO; -IPRAAER IN; +IPRASOL INH; -LORTA5 PO; +POTA-245 PO; -PRED20 PO; +PRED5TAB PO; +SYMB160A INH; +TAMS0.4C4 PO; -TAMS0.4C67 PO; +VENTAER INH; +WARF-58 PO; -Z.0.OXYGENDME NASAL
[2016-10-19] MEDS ORDERED: FUROSEMIDE 40 MG/4 ML VIAL IV PUSH ONE (04:00)
[2016-10-19] MEDS ORDERED: CEFEPIME INJ 2,000 MG in SODIUM CHLORIDE 0.9% INJ 100 ML IV ONE (04:00)
[2016-10-19] MEDS ORDERED: VANCOMYCIN INJ 1,750 MG in SODIUM CHLORID 0.9% 500 ML INJ 500 ML IV ONE (04:00)
[2016-10-19] MEDS ORDERED: methylPREDNISolone SOD SUCC 125 MG/2 ML VIAL IVP ONE (04:00)
[2016-10-19] MEDS ORDERED: RESP: ALBUTEROL 2.5 MG/3 ML NEB (SCH) INH (04:00)
[2016-10-19] MEDS ORDERED: RESP: ALBUTEROL 2.5 MG/IPRATROPIUM 0.5 MG NEB (SCH) ONE (04:14)
[2016-10-19 04:22] LABS: AUTOMATED NEUTROPHIL # 1.6 TH/MM3 (1.8-7.7); BASOPHIL % 0.7 % (0.0-2.0); EOSINOPHIL # 0.1 TH/MM3 (0-0.4); EOSINOPHIL % 3.2 % (0.0-4.0); HEMATOCRIT 37.8 % (39.0-51.0); HEMO FLAGS DIFF FINAL; LYMPH % 21.7 % (9.0-44.0); LYMPHOCYTE # 0.5 TH/MM3 (1.0-4.8); MEAN CORPUSCULAR HEMOGLOBIN 28.7 PG (27.0-34.0); MEAN CORPUSCULAR HGB CONC 32.2 % (32.0-36.0); NEUT % 66.4 % (16.0-70.0); PLATELET COUNT 116 TH/MM3 (150-450); RED BLOOD COUNT 4.25 MIL/MM3 (4.50-5.90); RED CELL DISTRIBUTION WIDTH 18.3 % (11.6-17.2); WHITE BLOOD COUNT 2.4 TH/MM3 (4.0-11.0)
[2016-10-19] MEDS: RESP: ALBUTEROL 2.5 MG/IPRATROPIUM 0.5 MG NEB (SCH) INH ×4 (04:27→20:31)
[2016-10-19 04:32] LABS: BACTERIA, URINE OCC /hpf; BLOOD, URINE SMALL (NEG); GLUCOSE,URINE NEG (NEG); HYALINE CAST, URINE 1 /lpf (RARE); KETONE, URINE NEG (NEG); NITRITE,URINE NEG (NEG); PH, URINE 5.5 (5.0-8.5); URINE COLOR YELLOW (YELLW/STRAW)
[2016-10-19 04:34] LABS: COMMENT (UR) CATH-CULTURE IND; CULTURE IF INDICATED CATH CULTURE IND
[2016-10-19 04:52] LABS: ANION GAP 4 MEQ/L (5-15); AST (GOT) 18 U/L (15-37); BICARBONATE 42.3 MEQ/L (21.0-32.0); BLOOD UREA NITROGEN 23 MG/DL (7-18); CHLORIDE 94 MEQ/L (98-107); GLOMERULAR FILTRATION RATE 63 ML/MIN (>89); MAGNESIUM 2.4 MG/DL (1.5-2.5); POTASSIUM 4.8 MEQ/L (3.5-5.1); SODIUM (NA) 140 MEQ/L (136-145)
[2016-10-19 04:55] LABS: ALKALINE PHOSPHATASE 125 U/L (45-117); ALT (GPT) 41 U/L (12-78); TOTAL BILIRUBIN ADULT 0.7 MG/DL (0.2-1.0)
[2016-10-19 04:59] LABS: CREATINE KINASE 19 U/L (39-308)
--- NOTE | 2016-10-19 05:02 | RADRPT ---
EXAM DATE/TIME: 10/19/2016 04:27 [facility] COMPARISON: CHEST SINGLE AP, September 30, 2016, 9:44. INDICATIONS : Shortness of breath. MEDICAL HISTORY : Hypertension. Chronic obstructive pulmonary disease. SURGICAL HISTORY : Pacemaker. ENCOUNTER: Initial ACUITY: 1 day PAIN SCORE: Non-responsive. LOCATION: Bilateral chest FINDINGS: There is a pacing/AICD device in place from the left subclavian approach. The heart size is mildly en larged. There is increased density at the lung bases. Mid and upper lungs are clear. CONCLUSION: Bibasilar areas of consolidation or atelectasis. Salvatore Goddard MD on October 19, 2016 at 5:01 Board Certified Radiologist. This report was verified electronically.
[2016-10-19 05:05] LABS: PROTHROMBIN TIME - PATIENT 113.4 SEC (9.8-11.6)
[2016-10-19 05:09] LABS: INTERNATIONAL NORMALIZED RATIO 9.4 RATIO
--- NOTE | 2016-10-19 05:09 | PD ---
HPI Chief Complaint: Respiratory Distress Time Seen by Provider: 03:53 Travel History International Travel<30 days: No Contact w/Intl Traveler<30days: No Traveled to known affect area: No History of Present Illness HPI Patient 75 years old. He arrives from [facility]. He is a DNR. Evidently he became somewhat dyspneic over the course of a few hours last night. His O2 sat dropped to 75% on 3.5 L. On scene EMS observed a O2 sat of 90% on CPAP, applied by fire department. Rales observed and rate. Patient is known to have COPD and CHF. upon arrival history limited secondary to acuity. PFSH Past Medical History Hx Anticoagulant Therapy: Yes (coumadin) Asthma: No Atrial Fibrillation: Yes Autoimmune Disease: Yes Blood Disorders: Yes (platelet issues - very low count) Anxiety: Yes Depression: Yes Heart Rhythm Problems: Yes (pacer, defibrilator) Cancer: No Cardiac Catheterization: Yes (PACER BATTERY REPLACED 05/11/16) Cardiovascular Problems: Yes High Cholesterol: No Chemotherapy: No Chest Pain: No Congestive Heart Failure: Yes COPD: Yes Cerebrovascular Accident: No Diabetes: No Diminished Hearing: No Endocrine: No Gastrointestinal Disorders: Yes (GERD, HX DIVERTICULITIS, COLOSTOMY) GERD: No Glaucoma: No Genitourinary: Yes Hepatitis: No Hiatal Hernia: Yes Hypertension: Yes Immune Disorder: No Implanted Vascular Access Dvce: Yes Kidney Stones: No Musculoskeletal: Yes (back pain) Neurologic: Yes (TIA 7 months ago) Psychiatric: No Reproductive: No Respiratory: Yes (COPD) Integumentary: No Immunizations Current: Yes Myocardial Infarction: Yes Radiation Therapy: No Renal Failure: No Seizures: No Sleep Apnea: No Thyroid Disease: No Ulcer: No PNEUMOCCOCAL Vaccine (Year): 1 Past Surgical History Abdominal Surgery: Yes (RUPT. DIVERTICULUM SX/ COLOSTOMY 10/13/2014) AICD: Yes (KPATRONIC) Body Medical Devices: pacemaker and defibrillator Cardiac Surgery: Yes (AICD IMPL.) Ear Surgery: No Endocrine Surgery: No Eye Surgery: Yes (COSME. CATARACT EXTRACT) Genitourinary Surgery: No Gynecologic Surgery: No Joint Replacement: No Oral Surgery: No Pacemaker: Yes (W/AICD) Thoracic Surgery: No Other Surgery: Yes (pacemaker defib,colostomy/reversal, Abdominal Sx) Social History Alcohol Use: No Tobacco Use: Yes (3-4 CIGARETTES/DAY) Substance Use: No Allergies-Medications (Allergen,Severity, Reaction): Coded Allergies: Quinidex Extentab (Verified Allergy, Severe, PLATELETT COUNT DECREASES/ BLINDNESS, 05/11/16) Niacin (Verified Allergy, Intermediate, RASH/ITCHING, 05/11/16) MRI PRECAUTION (Verified Adverse Reaction, Severe, NON MRI COMPATIBLE DEFIB 10/22/15 LRS, 05/11/16) *MDRO Multi-Drug Resistant Organism (Verified Adverse Reaction, Unknown, ESBL, 10/01/16) ESBL E. coli (abd. 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 coli (urine) - 03/08/16 & 09/28/16 Reported Meds & Prescriptions Reported Meds & Active Scripts Active Duoneb (Ipratropium-Albuterol Neb) 0.5-2.5 Mg/3 Ml Neb 1 Nebule INH Q6HR NEB PRN Hydrocodone-Acetaminophen 5-300 Mg Tab 1 Tab PO Q6HR PRN Clonazepam 0.5 Mg Tab 0.5 Mg PO BID Prednisone 5 Mg Tab 5 Mg PO DIRECTED 10 Days 40 mg po daily for two days then 30 mg po daily for two days then 20 mg po daily for two days then 10 mg po daily for two days then 5 mg po daily for two days then stop. Coreg (Carvedilol) 12.5 Mg Tab 6.25 Mg PO BID 30 Days Symbicort Inh (Budesonide/Formoterol Fumarate) 160-4.5 Mcg/Act Aero 2 Puff INH Q12HR Reported Warfarin 3 Mg Tab 1.5 Mg PO TUETHURSAT Warfarin 3 Mg Tab 3 Mg PO MONWEDFRISUN Ventolin Hfa 18 GM Inh (Albuterol Sulfate) 90 Mcg/Act Aer 2 Puff INH Q4-6H PRN Tamsulosin (Tamsulosin HCl) 0.4 Mg Cap 0.4 Mg PO HS Omeprazole 20 Mg Tab 20 Mg PO DAILY Klor-Con M20 (Potassium Chloride Microencaps) 20 Meq Tab 20 Meq PO Q12HR Furosemide 40 Mg Tab 40 Mg PO DAILY Escitalopram (Escitalopram Oxalate) 10 Mg Tab 10 Mg PO DAILY Cheratussin AC Liq (Guaifenesin-Codeine Liq) 100-10 Mg/5 Ml Syrp 5 Ml PO Q4H PRN Do not exceed 6 doses/24 hrs. Calcium 600 with Vitamin D (Calcium Carbonate-Cholecalciferol) 600-400 mg-Unit Tab 1 Tab PO BID Atorvastatin (Atorvastatin Calcium) 10 Mg Tab 10 Mg PO HS Amiodarone (Amiodarone HCl) 200 Mg Tab 200 Mg PO DAILY Review of Systems Except as stated in HPI: all other systems reviewed are Neg General / Constitutional: No: Fever Respiratory: Positive: Cough, Shortness of Breath, Wheezing Physical Exam Narrative GENERAL: 76-year-old male moderate respiratory distress SKIN: Warm and dry. HEAD: Atraumatic. Normocephalic. EYES: Pupils equal and round. No scleral icterus. No injection or drainage. ENT: No nasal bleeding or discharge. Mucous membranes pink and moist. NECK: Trachea midline. No JVD. CARDIOVASCULAR: Regular rate and rhythm. RESPIRATORY: Rales bilaterally. Tachypnea. GASTROINTESTINAL: Abdomen soft, non-tender, nondistended. Hepatic and splenic margins not palpable. MUSCULOSKELETAL: No obvious deformities. No clubbing. No cyanosis. Bilateral lower extremity edema NEUROLOGICAL: Awake and alert. No obvious cranial nerve deficits. Motor grossly within normal limits. Normal speech. PSYCHIATRIC: Appropriate mood and affect; insight and judgment normal. Data Data Last Documented VS Vital Signs Date Time Temp Pulse Resp B/P Pulse Ox O2 Delivery O2 Flow Rate FiO2 10/19/16 04:35 100 50 10/19/16 04:34 71 20 118/58 BiPAP 10/19/16 04:01 98.4 Orders Electrocardiogram (10/19/16 03:53) Complete Blood Count With Diff (10/19/16 03:53) Comprehensive Metabolic Panel (10/19/16 03:53) Prothrombin Time / Inr (Pt) (10/19/16 03:53) Act Partial Throm Time (Ptt) (10/19/16 03:53) Lactic Acid Sepsis Protocol (10/19/16 03:53) Magnesium (Mg) (10/19/16 03:53) Lipase (10/19/16 03:53) Ckmb (Isoenzyme) Profile (10/19/16 03:53) Urinalysis - C+S If Indicated (10/19/16 03:53) Blood Culture (10/19/16 03:53) Chest, Single Ap (10/19/16 03:53) Ecg Monitoring (10/19/16 03:53) Iv Access Insert/Monitor (10/19/16 03:53) Cath For Specimen (10/19/16 03:53) Oximetry (10/19/16 03:53) Oxygen Administration (10/19/16 03:53) Methylprednisolone So Succ Inj (Solumedr (10/19/16 04:00) Albuterol Neb (Albuterol Neb) (10/19/16 04:00) Furosemide Inj (Lasix Inj) (10/19/16 04:00) Urinary Catheter Insert/Apply (10/19/16 03:53) Cefepime Inj (Maxipime Inj) (10/19/16 04:00) Vancomycin Inj (Vancomycin Inj) (10/19/16 04:00) Albuterol-Ipratropium Neb (Duoneb Neb) (10/19/16 04:15) Albuterol-Ipratropium Neb (Duoneb Neb) (10/19/16 04:14) Urine Culture (10/19/16 04:20) Phytonadione Inj (Vitamin K Inj) (10/19/16 05:15) B-Type Natriuretic Peptide (10/19/16 05:20) Admit Order (Ed Use Only) (10/19/16 05:21) Labs Laboratory Tests Test 10/19/16 10/19/16 10/19/16 04:00 04:05 04:20 White Blood Count 2.4 TH/MM3 Red Blood Count 4.25 MIL/MM3 Hemoglobin 12.2 GM/DL Hematocrit 37.8 % Mean Corpuscular Volume 89.0 FL Mean Corpuscular Hemoglobin 28.7 PG Mean Corpuscular Hemoglobin 32.2 % Concent Red Cell Distribution Width 18.3 % Platelet Count 116 TH/MM3 Mean Platelet Volume 8.5 FL Neutrophils (%) (Auto) 66.4 % Lymphocytes (%) (Auto) 21.7 % Monocytes (%) (Auto) 8.0 % Eosinophils (%) (Auto) 3.2 % Basophils (%) (Auto) 0.7 % Neutrophils # (Auto) 1.6 TH/MM3 Lymphocytes # (Auto) 0.5 TH/MM3 Monocytes # (Auto) 0.2 TH/MM3 Eosinophils # (Auto) 0.1 TH/MM3 Basophils # (Auto) 0.0 TH/MM3 CBC Comment DIFF FINAL Differential Comment Lactic Acid Level 1.1 mmol/L B-Type Natriuretic Peptide 221 PG/ML Prothrombin Time 113.4 SEC Prothromb Time International 9.4 RATIO Ratio Activated Partial 57.0 SEC Thromboplast Time Sodium Level 140 MEQ/L Potassium Level 4.8 MEQ/L Chloride Level 94 MEQ/L Carbon Dioxide Level 42.3 MEQ/L Anion Gap 4 MEQ/L Blood Urea Nitrogen 23 MG/DL Creatinine 1.13 MG/DL Estimat Glomerular Filtration 63 ML/MIN Rate Random Glucose 105 MG/DL Calcium Level 9.3 MG/DL Magnesium Level 2.4 MG/DL Total Bilirubin 0.7 MG/DL Aspartate Amino Transf 18 U/L (AST/SGOT) Alanine Aminotransferase 41 U/L (ALT/SGPT) Alkaline Phosphatase 125 U/L Total Creatine Kinase 19 U/L Total Protein 6.5 GM/DL Albumin 2.6 GM/DL Lipase 53 U/L Urine Color YELLOW Urine Turbidity HAZY Urine pH 5.5 Urine Specific [place] 1.016 Urine Protein NEG mg/dL Urine Glucose (UA) NEG mg/dL Urine Ketones NEG mg/dL Urine Occult Blood SMALL Urine Nitrite NEG Urine Bilirubin NEG Urine Urobilinogen LESS THAN 2.0 MG/DL Urine Leukocyte Esterase MOD Urine RBC 1 /hpf Urine WBC 4 /hpf Urine Bacteria OCC /hpf Urine Hyaline Casts 1 /lpf Microscopic Urinalysis Comment CATH-CULTURE IND MDM Medical Decision Making Medical Screen Exam Complete: Yes Emergency Medical Condition: Yes Medical Record Reviewed: Yes Differential Diagnosis NSTEMI, unstable angina, coronary vasospasm, PE, PTX, aortic dissection, pericarditis, myocarditis, endocarditis, PNA, esophageal disease, aneurysm, musculoskeletal etiologies, anxiety, cocaine/sympathomimetic abuse Narrative Course CBC & BMP Diagram 10/19/16 04:00 10/19/16 04:05 Last 24 hours Impressions Chest X-Ray 10/19/16 0353 Signed Impressions: Service Date/Time: Wednesday, October 19, 2016 04:27 - CONCLUSION: Bibasilar areas of consolidation or atelectasis. Salvatore Goddard MD Lasix and abx started. d/w Dr Segura. Diagnosis Primary Impression: CHF (congestive heart failure) Additional Impression: Pneumonia Qualified Code: J18.9 - Pneumonia of both lower lobes due to infectious organism Admitting Information Admitting Physician Requests: Admit Joe Johnson MD Oct 19, 2016 05:09
[2016-10-19] MEDS ORDERED: PHYTONADIONE 10 MG/ML VIAL SQ ONE (05:15)
[2016-10-19] MEDS ORDERED: NALOXONE HCL 0.4 MG/ML AMP IV PRN (05:45)
[2016-10-19] MEDS ORDERED: ONDANSETRON HCL 4 MG/2 ML VIAL IVP PRN (05:45)
[2016-10-19] MEDS ORDERED: SODIUM CHLORIDE 0.9% FLUSH 5 ML FLUSH FLUSH PRN (05:45)
[2016-10-19 06:09] LABS: BLOOD GAS BASE EXCESS 13.7 mmol/L (-2-2); BLOOD GAS CARBOXYHEMOGLOBIN 1.3 % (0-4); BLOOD GAS HCO3 40 mmol/L (22-26); BLOOD GAS METHEMOGLOBIN 1.7 % (0-2); BLOOD GAS O2 HGB SATURATION 88 % (90-100); BLOOD GAS OXYGEN CONTENT 15.9 Vol % (12.0-20.0); BLOOD GAS PCO2 77 mmHg (38-42); BLOOD GAS PO2 67 mmHG (61-120); BLOOD GAS TOTAL HGB 12.8 G/DL (12.0-16.0); TEMP CORR TO 98.6
[2016-10-19 06:10] LABS: CRITICAL VALUE YES; OXYGEN DEVICE VENTILATOR
[2016-10-19 06:11] LABS: DRAW SITE RT RADIAL; FIO2 50 %; NUMBER OF ARTERIAL PUNCTURES 1; STAT YES; ULNAR PULSE PRESENT; VENT SETTINGS NPPV
[2016-10-19] MEDS ORDERED: CHLORHEXIDINE GLUCONATE 2 % 1 PACK (2 CLOTHS) TOP PRN (06:30)
[2016-10-19] MEDS ORDERED: MISCELLANEOUS NURSING INFORMATION XX SCH (06:30)
[2016-10-19] MEDS: SODIUM CHLORIDE 0.9% FLUSH 5 ML FLUSH FLUSH SCH ×2 (07:54→22:48)
--- NOTE | 2016-10-19 09:12 | HHI.HP ---
[facility] David Pratt MD Admission Diagnosis CHF, PNA, Dyspnea Diagnoses: Chief Complaint: Shortness of breath Travel History International Travel<30 Days: No Contact w/Intl Traveler <30 Da: No Traveled to Known Affected Are: No History of Present Illness 76-year-old male with multiple comorbid conditions including hypertension, COPD , systolic CHF with EF of 35%, status post AICD, atrial fibrillation on Coumadin , anxiety and depression was brought into the hospital from a [facility] for worsening shortness of breath. Patient is currently on BiPAP and provided limited history. He reports over the past week he has been having increasing shortness of breath at the long-term facility. His niece and hollow handle bench worker at bedside reports he normally has issues with shortness of breath and he has been having good and bad days at the long-term facility. He denies associated chest pain. Patient was put on a by EMS and has been on BiPAP since arrival to the emergency room. Currently he reports that he is breathing slightly better. Workup in the emergency room revealed probable pneumonia and CHF. His INR was found to be supratherapeutic at 9. No reported bleeding. Patient is being admitted for further workup and treatment Review of Systems ROS Limitations: Clinical Condition, Poor Historian Constitutional: COMPLAINS OF: Fatigue, DENIES: Fever, Chills Respiratory: COMPLAINS OF: Cough, Shortness of breath Cardiovascular: DENIES: Chest pain, Lower Extremity Edema Hematologic/lymphatic: COMPLAINS OF: Bruising Except as stated in HPI: all other systems reviewed are Neg Past Family Social History Past Medical History Questionable TIA with no residual deficit COPD Hypertension CHF, echo on 10/25/14 with EF of 30-35% Atrial fibrillation on Coumadin History of diverticular rupture status post colostomy and takedown of Depression and anxiety Past Surgical History AICD placement Partial colectomy and colostomy with reversal Allergies: Coded Allergies: Quinidex Extentab (Verified Allergy, Severe, PLATELETT COUNT DECREASES/ BLINDNESS, 05/11/16) Niacin (Verified Allergy, Intermediate, RASH/ITCHING, 05/11/16) MRI PRECAUTION (Verified Adverse Reaction, Severe, NON MRI COMPATIBLE DEFIB 10/22/15 LRS, 05/11/16) *MDRO Multi-Drug Resistant Organism (Verified Adverse Reaction, Unknown, ESBL, 10/01/16) ESBL E. coli (abd. 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 coli (urine) - 03/08/16 & 09/28/16 Family History Reviewed and noncontributory. Social History Patient denies alcohol or illicit drugs. Admits to smoking 3-4 cigarettes a day. Physical Exam Vital Signs Vital Signs Date Time Temp Pulse Resp B/P Pulse Ox O2 Delivery O2 Flow Rate FiO2 10/19/16 08:28 100 40 10/19/16 07:34 98 40 10/19/16 06:27 60 18 106/52 94 BiPAP 10/19/16 06:20 100 BiPAP 50 10/19/16 05:30 62 18 110/58 96 BiPAP 10/19/16 04:35 100 50 10/19/16 04:34 71 20 118/58 98 BiPAP 10/19/16 04:08 100 BiPAP 10/19/16 04:08 100 BiPAP 10/19/16 04:01 98.4 68 18 133/60 100 10/19/16 03:50 95 100 10/19/16 03:45 95 100 Physical Exam GENERAL: Obese male, currently on BiPAP. SKIN: Multiple bruising over the upper and lower extremities. HEAD: Atraumatic. Normocephalic. No temporal or scalp tenderness. EYES: Pupils equal round and reactive. Extraocular motions intact. No scleral icterus. No injection or drainage. NECK: Trachea midline. No JVD or lymphadenopathy. CARDIOVASCULAR: Regular rate and rhythm without murmurs, gallops, or rubs. RESPIRATORY: Air movement is fair. This crackles bilaterally at the bases with occasional rhonchi. Otherwise clear to auscultation. GASTROINTESTINAL: Abdomen soft, non-tender, nondistended. No hepato-splenomegaly , or palpable masses. No guarding. MUSCULOSKELETAL: Extremities without edema. No calf tenderness. Negative Homans sign bilaterally. NEUROLOGICAL: Awake and alert. Normal speech. Laboratory Laboratory Tests Test 10/19/16 10/19/16 10/19/16 10/19/16 04:00 04:05 04:20 05:59 White Blood Count 2.4 Red Blood Count 4.25 Hemoglobin 12.2 Hematocrit 37.8 Mean Corpuscular Volume 89.0 Mean Corpuscular Hemoglobin 28.7 Mean Corpuscular Hemoglobin 32.2 Concent Red Cell Distribution Width 18.3 Platelet Count 116 Mean Platelet Volume 8.5 Neutrophils (%) (Auto) 66.4 Lymphocytes (%) (Auto) 21.7 Monocytes (%) (Auto) 8.0 Eosinophils (%) (Auto) 3.2 Basophils (%) (Auto) 0.7 Neutrophils # (Auto) 1.6 Lymphocytes # (Auto) 0.5 Monocytes # (Auto) 0.2 Eosinophils # (Auto) 0.1 Basophils # (Auto) 0.0 CBC Comment DIFF FINAL Differential Comment Lactic Acid Level 1.1 B-Type Natriuretic Peptide 221 Prothrombin Time 113.4 Prothromb Time International 9.4 Ratio Activated Partial 57.0 Thromboplast Time Sodium Level 140 Potassium Level 4.8 Chloride Level 94 Carbon Dioxide Level 42.3 Anion Gap 4 Blood Urea Nitrogen 23 Creatinine 1.13 Estimat Glomerular Filtration 63 Rate Random Glucose 105 Calcium Level 9.3 Magnesium Level 2.4 Total Bilirubin 0.7 Aspartate Amino Transf 18 (AST/SGOT) Alanine Aminotransferase 41 (ALT/SGPT) Alkaline Phosphatase 125 Total Creatine Kinase 19 Total Protein 6.5 Albumin 2.6 Lipase 53 Urine Color YELLOW Urine Turbidity HAZY Urine pH 5.5 Urine Specific [place] 1.016 Urine Protein NEG Urine Glucose (UA) NEG Urine Ketones NEG Urine Occult Blood SMALL Urine Nitrite NEG Urine Bilirubin NEG Urine Urobilinogen LESS THAN 2.0 Urine Leukocyte Esterase MOD Urine RBC 1 Urine WBC 4 Urine Bacteria OCC Urine Hyaline Casts 1 Microscopic Urinalysis Comment CATH-CULTURE IND Blood Gas Puncture Site RT RADIAL Blood Gas Patient Temperature 98.6 Blood Gas HCO3 40 Blood Gas Base Excess 13.7 Blood Gas Oxygen Saturation 88 Arterial Blood pH 7.34 Arterial Blood Partial 77 Pressure CO2 Arterial Blood Partial 67 Pressure O2 Arterial Blood Oxygen Content 15.9 Arterial Blood 1.3 Carboxyhemoglobin Arterial Blood Methemoglobin 1.7 Blood Gas Hemoglobin 12.8 Oxygen Delivery Device VENTILATOR Blood Gas Ventilator Setting NPPV Blood Gas Inspired Oxygen 50 Date/Time Procedure Status Source Growth 10/19/16 04:20 Urine Culture Received Urine Clean Catch Pending 10/19/16 04:05 Aerobic Blood Culture Received Blood Peripheral Pending 10/19/16 04:05 Anaerobic Blood Culture Received Blood Peripheral Pending Result Diagram: 10/19/16 0400 10/19/16 0405 Imaging Last Impressions Chest X-Ray 10/19/16 0353 Signed Impressions: Service Date/Time: Wednesday, October 19, 2016 04:27 - CONCLUSION: Bibasilar areas of consolidation or atelectasis. Salvatore Goddard MD Assessment and Plan Assessment and Plan 76-year-old male with acute on chronic hypoxic respiratory failure probably secondary to COPD exacerbation, pneumonia, CHF COPD exacerbation: She is hypoxic. Currently requiring BiPAP. - Treated with IV Solu-Medrol, breathing treatments, Symbicort -Treat with cefepime for presumed HCAP - Consult Pulmonology. Wean off bipap as tolerated. PNA: Chest x-ray image reviewed and shows bilateral basilar consolidation. Continue cefepime as above. Follow blood cultures. Acute on chronic systolic CHF: Status post AICD Last Echo on record on 10/25/14 w/ EF 30-35%. Scout crackles on exam. s/p Lasix 40 mg in the ED. - Continue with Lasix 40 mg IV BID. -Continue Coreg. Blood pressure currently cannot handle OMAR inhibitors. Atrial fibrillation: - Continue Coreg and amiodarone. Patient is on Coumadin but INR currently supratherapeutic at 9. Status post vitamin K. Follow INR with plan to resume when INR level acceptable. Supratherapeutic INR: Unclear if there has been any recent changes in his dosing. - He is status post vitamin K as above. No bleeding currently. Follow INR in a.m. GI prophylaxis: PPI. DVT PPx: On coumadin Code Status DNR. Confirmed with patient and niece. Physician Certification 2 Midnight Certification Type: Admission for Inpatient Services Order for Inpatient Services The services are ordered in accordance with Medicare regulations or non- Medicare payer requirements, as applicable. In the case of services not specified as inpatient-only, they are appropriately provided as inpatient services in accordance with the 2-midnight benchmark. Estimated LOS (days): 5 days is the estimated time the patient will need to remain in the hospital, assuming treatment plan goals are met and no additional complications. Post-Hospital Plan: [facility] Bony Rowley MD Oct 19, 2016 09:12
[2016-10-19] MEDS ORDERED: ACETAMINOPHEN/HYDROcodone 325 MG/5 MG TAB PO PRN (10:15)
[2016-10-19] MEDS ORDERED: RESP: ALBUTEROL 2.5 MG/IPRATROPIUM 0.5 MG NEB (PRN) INH (10:30)
[2016-10-19] MEDS ORDERED: ONDANSETRON HCL 4 MG/2 ML VIAL IV PRN (10:30)
[2016-10-19] MEDS: methylPREDNISolone SOD SUCC 40 MG/1 ML VIAL IV SCH ×2 (11:32→22:47)
[2016-10-19] MEDS: CEFEPIME INJ 2,000 MG in SODIUM CHLORIDE 0.9% INJ 100 ML IV SCH ×2 (11:32→16:53)
[2016-10-19] MEDS: AZITHROMYCIN INJ 500 MG in SODIUM CHLOR 0.9% 250 ML INJ 250 ML IV SCH (11:34)
--- NOTE | 2016-10-19 14:20 | EKG ---
Date Performed: 10/19/2016 Time Performed: 04:06:06 PTAGE: 76 years EKG: ELECTRONIC VENTRICULAR PACEMAKER ABNORMAL RHYTHM ECG PREVIOUS TRACING : 09/28/2016 01.49 DOCTOR: Ramesh Muñoz Interpretating Date/Time 10/19/2016 14:16:58
[2016-10-19] MEDS: FUROSEMIDE 40 MG/4 ML VIAL IV PUSH SCH (16:53)
[2016-10-19 17:47] LABS: CREATINE KINASE 22 U/L (39-308)
[2016-10-19] MEDS: TAMSULOSIN HCL 0.4 MG CAP PO SCH (22:46)
[2016-10-19] MEDS: POTASSIUM CHLORIDE 20 MEQ CONTROLLED RELEASE TAB PO SCH (22:46)
[2016-10-19] MEDS: clonazePAM 0.5 MG TAB PO SCH (22:47)
[2016-10-19] MEDS: ATORVASTATIN 10 MG TAB PO SCH (22:47)
[2016-10-19] MEDS: CARVEDILOL 6.25 MG TAB PO SCH (22:47)
[2016-10-19] MEDS: BUDESONIDE-FORMOTEROL 160/4.5 MCG INHALER INH SCH (22:47)
[2016-10-19 23:22] LABS: BLOOD GAS BASE EXCESS 11.7 mmol/L (-2-2); BLOOD GAS CARBOXYHEMOGLOBIN 1.7 % (0-4); BLOOD GAS HCO3 36 mmol/L (22-26); BLOOD GAS METHEMOGLOBIN 1.5 % (0-2); BLOOD GAS O2 HGB SATURATION 94 % (90-100); BLOOD GAS OXYGEN CONTENT 14.3 Vol % (12.0-20.0); BLOOD GAS PCO2 53 mmHg (38-42); BLOOD GAS PO2 82 mmHg (61-120); BLOOD GAS TOTAL HGB 10.8 G/DL (12.0-16.0); CRITICAL VALUE YES; TEMP CORR TO 98.6
[2016-10-19 23:24] LABS: DRAW SITE RT BRACHIAL; FIO2 40 %; NUMBER OF ARTERIAL PUNCTURES 1; OXYGEN DEVICE BIPAP; STAT NO; VENT SETTINGS IPAP 10/ EPAP 5
[2016-10-20] VITALS (18 sets, daily range): BP systolic 96–108; BP diastolic 50–55; PULSE 60–80; RESP 18–26; TEMP 98.2–99.2; O2SAT 92–99
[2016-10-20] MEDS: CEFEPIME INJ 2,000 MG in SODIUM CHLORIDE 0.9% INJ 100 ML IV SCH ×4 (03:02→23:30)
[2016-10-20] MEDS: CHLORHEXIDINE GLUCONATE 2 % 1 PACK (2 CLOTHS) TOP SCH (03:02)
[2016-10-20] MEDS: RESP: ALBUTEROL 2.5 MG/IPRATROPIUM 0.5 MG NEB (SCH) INH ×4 (03:11→19:58)
[2016-10-20 06:51] LABS: INTERNATIONAL NORMALIZED RATIO 2.4 RATIO; PROTHROMBIN TIME - PATIENT 27.9 SEC (9.8-11.6)
[2016-10-20 06:52] LABS: AUTOMATED NEUTROPHIL # 3.3 TH/MM3 (1.8-7.7); BASOPHIL % 0.1 % (0.0-2.0); HEMATOCRIT 33.9 % (39.0-51.0); HEMO FLAGS DIFF FINAL; LYMPH % 13.3 % (9.0-44.0); LYMPHOCYTE # 0.6 TH/MM3 (1.0-4.8); MEAN CELL VOLUME 88.5 FL (80.0-100.0); MEAN CORPUSCULAR HEMOGLOBIN 27.9 PG (27.0-34.0); MEAN CORPUSCULAR HGB CONC 31.6 % (32.0-36.0); MONO % 6.5 % (0.0-8.0); NEUT % 80.1 % (16.0-70.0); PLATELET COUNT 120 TH/MM3 (150-450); RED BLOOD COUNT 3.83 MIL/MM3 (4.50-5.90); RED CELL DISTRIBUTION WIDTH 17.7 % (11.6-17.2); WHITE BLOOD COUNT 4.1 TH/MM3 (4.0-11.0)
[2016-10-20 07:04] LABS: BICARBONATE 38.7 MEQ/L (21.0-32.0); POTASSIUM 4.3 MEQ/L (3.5-5.1)
--- NOTE | 2016-10-20 08:52 | MB ---
cc: HUGO SMITH DATE OF CONSULTATION 10/19/[address] Bony Rowley REASON FOR CONSULTATION Shortness of breath PRESENT ILLNESS Mr. Benjamin is a 76-year-old male with a history of COPD, congestive heart failure, cardiomyopathy and AICD placement. He was recently [facility] the [facility]. He came back over here with worsening of his shortness of breath. Denies any chest pain. He has cough and congestion. No fever or chills. No night sweats. He was evaluated in the hospital. His blood gas shows pH 7.34, pCO2 77, pO2 67, bicarb 40, saturation 88%. His WBC count is 2.4, hemoglobin 12, hematocrit 37.8, MCV 89, platelet count 116. Sodium 140, potassium 4.8, chloride 98, CO2 42, BUN 23, creatinine 1.13. His chest x-ray showed bibasilar consolidation or atelectasis. PAST MEDICAL HISTORY Significant for a history of: 1. DVT 2. Coronary disease status post MO 3. Back pain 4. Congestive heart failure 5. Cardiomyopathy 6. Defibrillator placement 7. History of diverticulitis requiring colostomy which was Reversed. MEDICATIONS He is currently takin. Amiodarone 200 mg a day 2. Lexapro 10 mg a day 3. Protonix 40 mg a day 4. Lipitor 10 mg a day 5. Symbicort 160/4.5 two puffs twice a day 6. Klonopin 0.5 mg twice a day 7. Potassium 20 mEq 8. Flomax 0.4 mg a day 9. Coreg 6.25 mg twice a day 10. Lasix 40 mg a day 11. Albuterol/Atrovent nebulizer treatment 12. Cefepime 2 grams q8-hour 13. Zithromax 5 mg a day 14. Solu-Medrol 40 mg q12h 15. [facility]bh [place] for pain ALLERGIES ALLERGIC TO QUINIDEX AND NIACIN. SOCIAL HISTORY He is single, lives with his niece. He has no children. He has one brother and one sister all . Both parents are . He has a 50-pack year history of smoking, has cut back to a half pack a day. No alcohol use. He is retired. REVIEW OF SYSTEMS He feels weak and/or tired and short of breath. He does not walk much. No headache, seizure or epilepsy. No bleeding from any site. PHYSICAL EXAM This is a well-nourished elderly male mildly short of breath. VITAL SIGNS: Blood pressure of 132/61, heart rate 60, respirations 20, temperature 98.7. HEENT: Examination unremarkable. NECK: Supple. JVP not elevated. CHEST: He has rhonchi and rales. CARDIOVASCULAR: S1 and S2 normal. ABDOMEN: Benign. EXTREMITIES: Trace of pedal edema. IMPRESSION 1. Hypercapnic respiratory failure 2. COPD 3. CHF 4. Pneumonia 5. Atrial fibrillation PLAN We will keep him on BiPap, keep the saturation greater than 88%, weaning him from the BiPap as he tolerates aerosol treatment. Continue antibiotics cefepime and Zithromax pending the cultures. His INR is high. Coumadin is on hold. Monitor his electrolytes. Further treatment will depend upon the course in the hospital. Thank you Dr. Rowley for this consultation. MD TERESSA King/SAMANTHA /7:31 PM /8:37 AM
[2016-10-20] MEDS: POTASSIUM CHLORIDE 20 MEQ CONTROLLED RELEASE TAB PO SCH ×2 (08:53→20:05)
[2016-10-20] MEDS: AMIODARONE 200 MG TAB PO SCH (08:53)
[2016-10-20] MEDS: BUDESONIDE-FORMOTEROL 160/4.5 MCG INHALER INH SCH ×2 (08:53→20:05)
[2016-10-20] MEDS: PANTOPRAZOLE SOD 20 MG DELAYED RELEASE TAB PO SCH (08:53)
[2016-10-20] MEDS: ESCITALOPRAM OXALATE 10 MG TAB PO SCH (08:53)
[2016-10-20] MEDS: clonazePAM 0.5 MG TAB PO SCH ×2 (08:53→20:05)
[2016-10-20] MEDS: CARVEDILOL 6.25 MG TAB PO SCH ×2 (08:54→20:05)
[2016-10-20] MEDS: FUROSEMIDE 40 MG/4 ML VIAL IV PUSH SCH ×2 (08:54→18:15)
[2016-10-20] MEDS: SODIUM CHLORIDE 0.9% FLUSH 5 ML FLUSH FLUSH SCH ×2 (08:59→20:05)
--- NOTE | 2016-10-20 09:51 | HHI.PR ---
Subjective Remarks Patient seen in follow up for respiratory failure and multiple comorbid conditions. He is off the bipap this morning but still requires FM. Had periods of confusion overnight. No chest pain. He reports feeling better. Objective Vitals Vital Signs Date Time Temp Pulse Resp B/P Pulse Ox O2 Delivery O2 Flow Rate FiO2 10/20/16 07:32 98 Venturi Mask 6.00 50 10/20/16 07:32 99 10/20/16 06:00 77 10/20/16 04:25 94 40 10/20/16 04:00 73 10/20/16 04:00 98.6 73 18 96/55 94 10/20/16 02:00 60 10/20/16 00:00 98.3 60 26 107/52 95 10/20/16 00:00 60 10/19/16 23:14 96 40 10/19/16 22:00 64 10/19/16 20:28 95 40 10/19/16 20:00 99.0 68 24 117/55 94 10/19/16 20:00 68 10/19/16 18:00 66 10/19/16 17:52 98 40 10/19/16 16:00 60 10/19/16 16:00 98.7 60 20 132/61 99 10/19/16 14:00 63 10/19/16 12:48 97 40 10/19/16 12:00 97.9 63 16 128/70 96 10/19/16 12:00 60 10/19/16 10:00 60 I/O 10/19/16 10/19/16 10/19/16 10/20/16 10/20/16 10/20/16 07:00 15:00 23:00 07:00 15:00 23:00 Intake Total 912 ml 870 ml 377 ml Output Total 350 ml 1100 ml 250 ml Balance 562 ml -230 ml 127 ml Intake Oral 720 ml 240 ml IV Total 912 ml 150 ml 137 ml Output Urine Total 350 ml 1100 ml 250 ml # Bowel Movements 0 1 Result Diagram: 10/20/16 0546 10/20/16 0546 Imaging Last Impressions Chest X-Ray 10/19/16 0353 Signed Impressions: Service Date/Time: Wednesday, October 19, 2016 04:27 - CONCLUSION: Bibasilar areas of consolidation or atelectasis. Salvatore Goddard MD Objective Remarks GENERAL: Obese male, in no acute distress. SKIN: Multiple bruising over the upper and lower extremities. HEAD: Atraumatic. Normocephalic. No temporal or scalp tenderness. CARDIOVASCULAR: Regular rate and rhythm without murmurs, gallops, or rubs. RESPIRATORY: Air movement is fair. There are crackles bilaterally at the bases with occasional rhonchi. Otherwise clear to auscultation. GASTROINTESTINAL: Abdomen soft, non-tender, nondistended. No hepato-splenomegaly , or palpable masses. No guarding. MUSCULOSKELETAL: Extremities without edema. No calf tenderness. Negative Homans sign bilaterally. NEUROLOGICAL: Awake and alert. Normal speech. A/P Assessment and Plan 76-year-old male with acute on chronic hypoxic respiratory failure probably secondary to COPD exacerbation, pneumonia, CHF COPD exacerbation: She is hypoxic. Currently requiring BiPAP. - Treated with IV Solu-Medrol, breathing treatments, Symbicort - Continue with cefepime and Azithromycin for presumed HCAP - Pulmonology following. Wean off bipap as tolerated. PNA: Chest x-ray image reviewed and shows bilateral basilar consolidation. Continue cefepime and Azithromycin as above. Follow blood cultures. Acute on chronic systolic CHF: Status post AICD Last Echo on record on 10/25/14 w/ EF 30-35%. Scout crackles on exam. s/p Lasix 40 mg in the ED. - Continue with Lasix 40 mg IV BID. - Continue Coreg. Blood pressure currently cannot handle OMAR inhibitors. Repeat echo Atrial fibrillation: - Continue Coreg and amiodarone. Patient is on Coumadin but INR currently supratherapeutic at 9. Status post vitamin K. INR down to 2.4. Plan to resume Coumadin tomorrow. Supratherapeutic INR: Unclear if there has been any recent changes in his dosing. - He is status post vitamin K as above. No bleeding currently. Follow INR in a.m. GI prophylaxis: PPI. DVT PPx: On coumadin DNR. Confirmed with patient and niece. Bony Rowley MD Oct 20, 2016 09:51
[2016-10-20] MEDS: AZITHROMYCIN INJ 500 MG in SODIUM CHLOR 0.9% 250 ML INJ 250 ML IV SCH (11:03)
[2016-10-20] MEDS: methylPREDNISolone SOD SUCC 40 MG/1 ML VIAL IV SCH ×2 (11:03→23:28)
--- NOTE | 2016-10-20 16:46 | EC ---
Study Study Date:10/20/2016 STUDY CONCLUSIONS SUMMARY - Left ventricle: The cavity size was normal. Wall thickness was normal. Systolic function was moderately to severely reduced by visual assessment. The estimated ejection fraction was in the range of 35% to 40%. Diffuse hypokinesis with regional variations. - Aortic valve: Transvalvular velocity was increased less than expected. There was mild stenosis. Valve area: 1.87cm^2 (Vmax). If LV function is below 40, please consider prescribing an ACEI or ARB or document rationale for non-use. PROCEDURE DATA STUDY STATUS: Elective. Procedure: Transthoracic echocardiography. Image quality was poor. The study was technically limited due to poor acoustic window availability. Scanning was performed from the parasternal, apical, and subcostal acoustic windows. Study completion: The patient tolerated the procedure well. Transthoracic echocardiography. M-mode, complete 2D, complete spectral Doppler, and color Doppler. Height: Height: 68in. Weight: Weight: 225.5lb. Body mass index: BMI: 34.4kg/m^2. Body surface area: BSA: 2.15m^2. Patient status: Inpatient. CARDIAC ANATOMY LEFT VENTRICLE: Not well visualized. The cavity size was normal. Wall thickness was normal. Systolic function was moderately to severely reduced by visual assessment. The estimated ejection fraction was in the range of 35% to 40%. Diffuse hypokinesis with regional variations. AORTIC VALVE: Probably trileaflet; mildly thickened, mildly calcified leaflets. Doppler: Transvalvular velocity was increased less than expected. There was mild stenosis. No regurgitation. Valve area: 1.87cm^2 (Vmax). Indexed valve area: 0.87cm^2/m^2 (Vmax). AORTA: Aortic root: The aortic root was normal in size. MITRAL VALVE: Structurally normal valve. Doppler: Transvalvular velocity was within the normal range. There was no evidence for stenosis. Trace regurgitation. LEFT ATRIUM: The atrium was normal in size. RIGHT VENTRICLE: The cavity size was normal. Wall thickness was normal. PULMONIC VALVE: Doppler: Transvalvular velocity was within the normal range. There was no evidence for stenosis. No regurgitation. TRICUSPID VALVE: Structurally normal valve. Doppler: Transvalvular velocity was within the normal range. Trace regurgitation. PULMONARY ARTERY: The main pulmonary artery was normal-sized. Systolic pressure was within the normal range. RIGHT ATRIUM: The atrium was normal in size. PERICARDIUM: There was no pericardial effusion. SYSTEMIC VEINS: Inferior vena cava: The vessel was normal in size. Patient weight: 225.5lb _Ejection fraction:_ 65-75% _Fractional shortening:_ 32% up to 5Kg 5-11.5Kg 11.6-22.9Kg 23-45Kg 45-57Kg Aortic Root 7-13 <17 13-22 17-27 17-27 LA diam 6-13 <23 24-38 33-47 37-40 RVID 10-17 7-15 7-15 7-18 8-17 LVIDd 12-22 <32 24-38 33-47 37-40 LVPW 2-4 3-6 5-7 6-8 7-8 IVS 2-4 3-6 5-7 6-8 7-8 BASIC MEASUREMENTS ADULT NORMAL Left ventricle LV internal dimension, ED, chordal *57.8 mm 43-52 level, PLAX LV internal dimension, ES, chordal *49.3 mm 23-38 level, PLAX Fractional shortening, chordal level, *15 % >29 PLAX LV posterior wall thickness, ED 9.04 mm IVS/LVPW ratio, ED 0.93 <1.3 Ventricular septum Septal thickness, ED 8.38 mm Aortic valve Leaflet separation 19 mm 15-26 BASIC MEASUREMENTS ADULT NORMAL Aortic valve Leaflet separation 19 mm 15-26 Aorta Root diameter, ED 23 mm 20-37 Left atrium Anterior-posterior dimension, ES 38 mm 19-40 Anterior-posterior dimension index, ES 1.77 cm/m^2 <2.2 LA/aortic root ratio 1.65 DOPPLER MEASUREMENTS ADULT NORMAL Aortic valve Peak velocity, S 85.5 cm/s Valve area, Vmax 1.87 cm^2 Valve area index, Vmax 0.87 cm^2/m^2 Pulmonic valve Peak velocity, S 105 cm/s LEGEND: Mean values are shown as u=mean value. Asterisk (*) harrison values outside specified normal range. Prepared and signed by Antolin Gonzalez [id number]
--- NOTE | 2016-10-20 17:02 | EKG ---
Date Performed: 10/19/2016 Time Performed: 17:35:27 PTAGE: 76 years EKG: ELECTRONIC VENTRICULAR PACEMAKER Since previous tracing, no significant change noted ABNORM AL RHYTHM ECG PREVIOUS TRACING : 10/19/2016 04.06 DOCTOR: Ryan Velazquez Interpretating Date/Time 10/20/2016 17:00:24
--- NOTE | 2016-10-20 19:23 | HHI.PR ---
Subjective Remarks 76 YOWM with COPD,Hypercapnoic RF Used BIPAP now on VM mild sob no CP Objective Vital Signs Vital Signs Date Time Temp Pulse Resp B/P Pulse Ox O2 Delivery O2 Flow Rate FiO2 10/20/16 16:19 97 3.00 10/20/16 14:00 61 10/20/16 12:30 98.7 60 22 105/53 95 10/20/16 12:00 76 10/20/16 10:00 80 10/20/16 08:00 98.2 63 23 101/50 95 10/20/16 08:00 63 10/20/16 07:32 98 Venturi Mask 6.00 50 10/20/16 07:32 99 10/20/16 06:00 77 10/20/16 04:25 94 40 10/20/16 04:00 73 10/20/16 04:00 98.6 73 18 96/55 94 10/20/16 02:00 60 10/20/16 00:00 98.3 60 26 107/52 95 10/20/16 00:00 60 10/19/16 23:14 96 40 10/19/16 22:00 64 10/19/16 20:28 95 40 10/19/16 20:00 99.0 68 24 117/55 94 10/19/16 20:00 68 I/O 10/19/16 10/19/16 10/19/16 10/20/16 10/20/16 10/20/16 07:00 15:00 23:00 07:00 15:00 23:00 Intake Total 912 ml 870 ml 377 ml 763 ml Output Total 350 ml 1100 ml 250 ml 950 ml Balance 562 ml -230 ml 127 ml -187 ml Intake Oral 720 ml 240 ml 600 ml IV Total 912 ml 150 ml 137 ml 163 ml Output Urine Total 350 ml 1100 ml 250 ml 950 ml # Bowel Movements 0 1 3 Result Diagram: 10/20/1646 10/20/1646 Objective Remarks GENERAL: MBMN WM mild sob SKIN: Warm and dry. HEAD: Normocephalic. EYES: No scleral icterus. No injection or drainage. NECK: Supple, trachea midline. No JVD or lymphadenopathy. CARDIOVASCULAR: Regular rate and rhythm without murmurs, gallops, or rubs. RESPIRATORY: Breath sounds equal bilaterally. No accessory muscle use. GASTROINTESTINAL: Abdomen soft, non-tender, nondistended. MUSCULOSKELETAL: No cyanosis, or edema. BACK: Nontender without obvious deformity. No CVA tenderness. A/P Assessment and Plan Hypercapnoic RF COPD CHF AF Pneumonia PLAN: Cont VM CPAP prn and at night Cont Cefepime Aerosol nebs Symbicort 2 puffs bid Cont Amiodarone. Bahman Villarreal MD Oct 20, 2016 19:23
[2016-10-20] MEDS: TAMSULOSIN HCL 0.4 MG CAP PO SCH (20:05)
[2016-10-20] MEDS: ATORVASTATIN 10 MG TAB PO SCH (20:05)
[2016-10-21] VITALS (15 sets, daily range): BP systolic 100–132; BP diastolic 57–65; PULSE 60–61; RESP 16–28; TEMP 97.4–98.4; O2SAT 86–99
[2016-10-21] MEDS: RESP: ALBUTEROL 2.5 MG/IPRATROPIUM 0.5 MG NEB (SCH) INH ×4 (03:56→21:11)
[2016-10-21] MEDS: CHLORHEXIDINE GLUCONATE 2 % 1 PACK (2 CLOTHS) TOP SCH (04:16)
[2016-10-21] MEDS: BUDESONIDE-FORMOTEROL 160/4.5 MCG INHALER INH SCH ×2 (07:47→20:00)
[2016-10-21] MEDS: POTASSIUM CHLORIDE 20 MEQ CONTROLLED RELEASE TAB PO SCH ×2 (07:48→20:01)
[2016-10-21] MEDS: ESCITALOPRAM OXALATE 10 MG TAB PO SCH (07:48)
[2016-10-21] MEDS: clonazePAM 0.5 MG TAB PO SCH ×2 (07:48→20:01)
[2016-10-21] MEDS: CARVEDILOL 6.25 MG TAB PO SCH ×2 (07:48→20:01)
[2016-10-21] MEDS: SODIUM CHLORIDE 0.9% FLUSH 5 ML FLUSH FLUSH SCH ×2 (07:48→20:01)
[2016-10-21] MEDS: FUROSEMIDE 40 MG/4 ML VIAL IV PUSH SCH ×2 (07:48→18:03)
[2016-10-21] MEDS: PANTOPRAZOLE SOD 20 MG DELAYED RELEASE TAB PO SCH (07:48)
[2016-10-21] MEDS: AMIODARONE 200 MG TAB PO SCH (07:49)
[2016-10-21 10:16] LABS: INTERNATIONAL NORMALIZED RATIO 1.4 RATIO
--- NOTE | 2016-10-21 10:19 | HHI.PR ---
Subjective Remarks Shortness of breath is unchanged compared to yesterday. Still requiring 50% oxygen on Ventimask. He denies chest pain. States that he is feeling very tired. Objective Vitals Vital Signs Date Time Temp Pulse Resp B/P Pulse Ox O2 Delivery O2 Flow Rate FiO2 10/21/16 09:23 96 Venturi Mask 6.00 50 10/21/16 06:00 61 10/21/16 04:00 97.6 60 26 121/58 99 10/21/16 04:00 60 10/21/16 02:00 60 10/21/16 00:00 98.3 60 28 100/65 86 10/21/16 00:00 60 10/20/16 23:15 94 Venturi Mask 6.00 50 10/20/16 22:00 Venturi Mask 10/20/16 22:00 60 10/20/16 21:00 Bi-Pap 40 10/20/16 20:00 60 10/20/16 20:00 98.3 60 26 107/53 92 10/20/16 19:58 93 Nasal Cannula 4.00 10/20/16 19:00 Nasal Cannula 4.00 10/20/16 18:00 60 10/20/16 16:19 97 3.00 10/20/16 16:00 60 10/20/16 16:00 99.2 60 19 108/52 97 10/20/16 14:00 61 10/20/16 12:30 98.7 60 22 105/53 95 10/20/16 12:00 76 I/O 10/20/16 10/20/16 10/20/16 10/21/16 10/21/16 10/21/16 07:00 15:00 23:00 07:00 15:00 23:00 Intake Total 377 ml 2198 ml 231 ml Output Total 250 ml 1950 ml 450 ml Balance 127 ml 248 ml -219 ml Intake Oral 240 ml 1520 ml 100 ml IV Total 137 ml 678 ml 131 ml Output Urine Total 250 ml 1950 ml 450 ml # Bowel Movements 1 6 1 Result Diagram: 10/20/16 0546 10/20/16 0546 Objective Remarks GENERAL: Obese male, on Ventimask SKIN: Multiple bruising over the upper and lower extremities. HEAD: Atraumatic. Normocephalic. No temporal or scalp tenderness. CARDIOVASCULAR: Regular rate and rhythm without murmurs, gallops, or rubs. RESPIRATORY: Air movement is fair. There are crackles bilaterally at the bases with occasional rhonchi. Otherwise clear to auscultation. GASTROINTESTINAL: Abdomen soft, non-tender, nondistended. No hepato-splenomegaly , or palpable masses. No guarding. MUSCULOSKELETAL: Extremities without edema. NEUROLOGICAL: Awake and alert. Normal speech. A/P Assessment and Plan 76-year-old male with acute on chronic hypoxic respiratory failure probably secondary to COPD exacerbation, pneumonia, CHF COPD exacerbation: She is hypoxic. Currently requiring BiPAP. - Treated with IV Solu-Medrol, breathing treatments, Symbicort - Continue with cefepime and Azithromycin for presumed HCAP - Pulmonology following. Wean off bipap as tolerated. PNA: Chest x-ray image reviewed and shows bilateral basilar consolidation. Continue cefepime and Azithromycin as above. Follow blood cultures. Repeat chest x-ray today. Acute on chronic systolic CHF: Status post AICD Last Echo on record on 10/25/14 w/ EF 30-35%. Scout crackles on exam. s/p Lasix 40 mg in the ED. - Continue with Lasix 40 mg IV BID. - Continue Coreg. Blood pressure currently cannot handle OMAR inhibitors. Repeat echo shows LVEF of 35-40% with global hypokinesis. Atrial fibrillation: - Continue Coreg and amiodarone. Patient is on Coumadin but INR supratherapeutic at 9 on admission. Status post vitamin K. INR down to 2.4. Resume Coumadin today. Supratherapeutic INR: Resolving. Unclear if there has been any recent changes in his dosing. - He is status post vitamin K as above. No bleeding currently. Resume Coumadin. Follow INR in a.m. GI prophylaxis: PPI. DVT PPx: On coumadin DNR. Confirmed with patient and niece. Bony Rowley MD Oct 21, 2016 10:19
--- NOTE | 2016-10-21 11:51 | RADRPT ---
EXAM DATE/TIME: 10/21/2016 10:33 [facility] COMPARISON: CHEST SINGLE AP, October 19, 2016, 4:27. INDICATIONS : Short of breath. MEDICAL HISTORY : Hypertension. Chronic obstructive pulmonary disease. A-Fib SURGICAL HISTORY : Pacemaker. Colostomy. ENCOUNTER: Subsequent ACUITY: 4 - 6 days PAIN SCORE: 0/10 LOCATION: Bilateral chest FINDINGS: Pacemaker again noted overlying the left hemithorax with atherosclerotic change in aorta and borderli ne left ventricular cardiomegaly. Bibasilar opacities persist unchanged CONCLUSION: Stable chest Cale Andrea MD on October 21, 2016 at 11:49 Board Certified Radiologist. This report was verified electronically.
[2016-10-21] MEDS: methylPREDNISolone SOD SUCC 40 MG/1 ML VIAL IV SCH ×2 (11:56→22:10)
[2016-10-21] MEDS: CEFEPIME INJ 2,000 MG in SODIUM CHLORIDE 0.9% INJ 100 ML IV SCH ×2 (12:00→18:04)
[2016-10-21] MEDS: AZITHROMYCIN INJ 500 MG in SODIUM CHLOR 0.9% 250 ML INJ 250 ML IV SCH (12:01)
[2016-10-21] MEDS: WARFARIN SOD 2 MG TAB PO SCH (16:00)
--- NOTE | 2016-10-21 16:34 | HHI.PR ---
Subjective Remarks 76 YOWM with COPD,Hypercapnoic RF now on NC mild sob no CP Refused CPAP last night but agreeable now Objective Vital Signs Vital Signs Date Time Temp Pulse Resp B/P Pulse Ox O2 Delivery O2 Flow Rate FiO2 10/21/16 12:00 97.4 60 21 122/58 97 10/21/16 12:00 60 10/21/16 10:00 60 10/21/16 09:23 96 Venturi Mask 6.00 50 10/21/16 08:00 60 10/21/16 08:00 98.4 60 24 132/64 96 10/21/16 07:00 Venturi Mask 50 10/21/16 06:00 61 10/21/16 04:00 97.6 60 26 121/58 99 10/21/16 04:00 60 10/21/16 02:00 60 10/21/16 00:00 98.3 60 28 100/65 86 10/21/16 00:00 60 10/20/16 23:15 94 Venturi Mask 6.00 50 10/20/16 22:00 Venturi Mask 10/20/16 22:00 60 10/20/16 21:00 Bi-Pap 40 10/20/16 20:00 60 10/20/16 20:00 98.3 60 26 107/53 92 10/20/16 19:58 93 Nasal Cannula 4.00 10/20/16 19:00 Nasal Cannula 4.00 10/20/16 18:00 60 I/O 10/20/16 10/20/16 10/20/16 10/21/16 10/21/16 10/21/16 07:00 15:00 23:00 07:00 15:00 23:00 Intake Total 377 ml 2198 ml 231 ml Output Total 250 ml 1950 ml 450 ml Balance 127 ml 248 ml -219 ml Intake Oral 240 ml 1520 ml 100 ml IV Total 137 ml 678 ml 131 ml Output Urine Total 250 ml 1950 ml 450 ml # Bowel Movements 1 6 1 Result Diagram: 10/20/1646 10/20/16 0546 Objective Remarks GENERAL: MBMN WM mild sob SKIN: Warm and dry. HEAD: Normocephalic. EYES: No scleral icterus. No injection or drainage. NECK: Supple, trachea midline. No JVD or lymphadenopathy. CARDIOVASCULAR: Regular rate and rhythm without murmurs, gallops, or rubs. RESPIRATORY: Breath sounds equal bilaterally. No accessory muscle use. GASTROINTESTINAL: Abdomen soft, non-tender, nondistended. MUSCULOSKELETAL: No cyanosis, or edema. BACK: Nontender without obvious deformity. No CVA tenderness. A/P Assessment and Plan Hypercapnoic RF COPD CHF AF Pneumonia PLAN: CPAP prn and at night Cont Cefepime Aerosol nebs Symbicort 2 puffs bid Cont Amiodarone. DW family at Bahman Villarreal MD Oct 21, 2016 16:34
[2016-10-21] MEDS: TAMSULOSIN HCL 0.4 MG CAP PO SCH (20:01)
[2016-10-21] MEDS: ATORVASTATIN 10 MG TAB PO SCH (20:01)
[2016-10-22] VITALS (15 sets, daily range): BP systolic 96–126; BP diastolic 54–86; PULSE 59–75; RESP 16–29; TEMP 97.4–98.4; O2SAT 90–99
[2016-10-22] MEDS: CEFEPIME INJ 2,000 MG in SODIUM CHLORIDE 0.9% INJ 100 ML IV SCH ×3 (02:19→18:13)
[2016-10-22] MEDS: CHLORHEXIDINE GLUCONATE 2 % 1 PACK (2 CLOTHS) TOP SCH (02:19)
[2016-10-22] MEDS: RESP: ALBUTEROL 2.5 MG/IPRATROPIUM 0.5 MG NEB (SCH) INH ×4 (03:42→21:50)
[2016-10-22 07:12] LABS: INTERNATIONAL NORMALIZED RATIO 1.6 RATIO; PROTHROMBIN TIME - PATIENT 17.5 SEC (9.8-11.6)
[2016-10-22 07:21] LABS: HEMATOCRIT 32.6 % (39.0-51.0); MEAN CELL VOLUME 87.2 FL (80.0-100.0); MEAN CORPUSCULAR HGB CONC 32.1 % (32.0-36.0); PLATELET COUNT 148 TH/MM3 (150-450); RED BLOOD COUNT 3.74 MIL/MM3 (4.50-5.90); RED CELL DISTRIBUTION WIDTH 17.8 % (11.6-17.2); REVIEW FLAG FINAL; WHITE BLOOD COUNT 4.7 TH/MM3 (4.0-11.0)
[2016-10-22 07:36] LABS: BICARBONATE 38.8 MEQ/L (21.0-32.0); POTASSIUM 3.8 MEQ/L (3.5-5.1)
[2016-10-22] MEDS: BUDESONIDE-FORMOTEROL 160/4.5 MCG INHALER INH SCH ×2 (09:16→20:03)
[2016-10-22] MEDS: FUROSEMIDE 40 MG/4 ML VIAL IV PUSH SCH ×2 (09:16→18:13)
[2016-10-22] MEDS: CARVEDILOL 6.25 MG TAB PO SCH ×2 (09:17→20:03)
[2016-10-22] MEDS: ESCITALOPRAM OXALATE 10 MG TAB PO SCH (09:17)
[2016-10-22] MEDS: AMIODARONE 200 MG TAB PO SCH (09:17)
[2016-10-22] MEDS: POTASSIUM CHLORIDE 20 MEQ CONTROLLED RELEASE TAB PO SCH ×2 (09:17→20:03)
[2016-10-22] MEDS: clonazePAM 0.5 MG TAB PO SCH ×2 (09:17→20:03)
[2016-10-22] MEDS: PANTOPRAZOLE SOD 20 MG DELAYED RELEASE TAB PO SCH (09:17)
[2016-10-22] MEDS: methylPREDNISolone SOD SUCC 40 MG/1 ML VIAL IV SCH ×2 (12:05→22:00)
[2016-10-22] MEDS: SODIUM CHLORIDE 0.9% FLUSH 5 ML FLUSH FLUSH SCH ×2 (12:05→20:04)
[2016-10-22 13:08] LABS: BACTERIA, URINE OCC /hpf; BLOOD, URINE TRACE (NEG); COMMENT (UR) CATH-CULTURE IND; CULTURE IF INDICATED CATH CULTURE IND; GLUCOSE,URINE NEG (NEG); HYALINE CAST, URINE 2 /lpf (RARE); KETONE, URINE NEG (NEG); MUCUS URINE FEW /lpf (OCC); NITRITE,URINE NEG (NEG); URINE COLOR YELLOW (YELLW/STRAW)
[2016-10-22] MEDS: AZITHROMYCIN INJ 500 MG in SODIUM CHLOR 0.9% 250 ML INJ 250 ML IV SCH (13:26)
--- NOTE | 2016-10-22 14:34 | HHI.PR ---
Subjective Remarks Patient reports that he is feeling better from a respiratory standpoint. He is down to nasal cannula. He reports that he feels very weak and is unsure if he will be able to work with physical therapy to get out of bed. Objective Vitals Vital Signs Date Time Temp Pulse Resp B/P Pulse Ox O2 Delivery O2 Flow Rate FiO2 10/22/16 14:00 60 10/22/16 12:00 98.1 75 27 96/55 96 10/22/16 12:00 75 10/22/16 10:00 60 10/22/16 09:09 98 Nasal Cannula 4.00 10/22/16 08:00 60 10/22/16 08:00 97.9 60 29 114/54 92 10/22/16 07:00 87 Nasal Cannula 4.00 10/22/16 06:00 60 10/22/16 04:00 60 10/22/16 04:00 98.4 60 20 117/86 90 10/22/16 02:00 60 10/22/16 00:32 97 Nasal Cannula 3.00 10/22/16 00:00 98.0 60 22 123/58 99 10/22/16 00:00 60 10/21/16 22:00 60 10/21/16 21:30 95 50 10/21/16 21:12 94 Nasal Cannula 3.00 10/21/16 20:00 60 10/21/16 20:00 98.4 60 20 110/57 96 10/21/16 19:00 Nasal Cannula 3.00 95 10/21/16 18:00 60 10/21/16 16:00 97.9 60 16 119/58 99 10/21/16 16:00 60 I/O 10/21/16 10/21/16 10/21/16 10/22/16 10/22/16 10/22/16 07:00 15:00 23:00 07:00 15:00 23:00 Intake Total 231 ml 1070 ml 1000 ml 100 ml 692 ml Output Total 450 ml 1500 ml 1250 ml 450 ml 1175 ml Balance -219 ml -430 ml -250 ml -350 ml -483 ml Intake Oral 100 ml 720 ml 500 ml 544 ml IV Total 131 ml 350 ml 500 ml 100 ml 148 ml Output Urine Total 450 ml 1500 ml 1250 ml 450 ml 1175 ml # Bowel Movements 1 3 2 Result Diagram: 10/22/1660910/22/16609 Objective Remarks GENERAL: Obese male, on nasal cannula. In no acute distress. SKIN: Multiple bruising over the upper and lower extremities. HEAD: Atraumatic. Normocephalic. No temporal or scalp tenderness. CARDIOVASCULAR: Regular rate and rhythm without murmurs, gallops, or rubs. RESPIRATORY: Air movement is fair. There are crackles and some rhonchi bilaterally at the bases with occasional rhonchi. Otherwise clear to auscultation. GASTROINTESTINAL: Abdomen soft, non-tender, nondistended. No hepato-splenomegaly , or palpable masses. No guarding. MUSCULOSKELETAL: Extremities without edema. NEUROLOGICAL: Awake and alert. Normal speech. A/P Assessment and Plan 76-year-old male with acute on chronic hypoxic respiratory failure probably secondary to COPD exacerbation, pneumonia, CHF COPD exacerbation: He came in hypoxic and requiring BiPAP. Currently improving and down to nasal cannula. He is to use BiPAP as needed per pulmonology -Continue IV Solu-Medrol, plan to transition to oral tomorrow. Breathing treatments, Symbicort - Continue with cefepime and Azithromycin for presumed HCAP - Pulmonology following. PNA: Chest x-ray image reviewed and shows bilateral basilar consolidation. Continue cefepime and Azithromycin as above. Follow blood cultures. Repeat chest x-ray in a.m. Acute on chronic systolic CHF: Status post AICD Last Echo on record on 10/25/14 w/ EF 30-35%. Scout crackles on exam. s/p Lasix 40 mg in the ED. - Continue with Lasix 40 mg IV BID. - Continue Coreg. Blood pressure currently cannot handle OMAR inhibitors. Repeat echo shows LVEF of 35-40% with global hypokinesis. UTI with ESBL Escherichia coli: This is a recurrence for the patient. He does not appear to septic or experiencing symptoms from this currently.? Colonization. - Consult infectious disease for further recommendations. Atrial fibrillation: - Continue Coreg and amiodarone. Patient is on Coumadin but INR supratherapeutic at 9 on admission. Status post vitamin K. INR 1.6. Coumadin restarted. Follow INR. Supratherapeutic INR: Resolving. Unclear if there has been any recent changes in his dosing. - He is status post vitamin K as above. No bleeding currently. Resume Coumadin. Follow INR in a.m. GI prophylaxis: PPI. DVT PPx: On coumadin DNR. Confirmed with patient and niece. Bony Rowley MD Oct 22, 2016 14:34
[2016-10-22] MEDS: WARFARIN SOD 2 MG TAB PO SCH (16:19)
--- NOTE | 2016-10-22 18:06 | HHI.PR ---
Subjective Remarks 76 YOWM with COPD,Hypercapnoic RF now on NC mild sob no CP Feels better , tired,weak Objective Vital Signs Vital Signs Date Time Temp Pulse Resp B/P Pulse Ox O2 Delivery O2 Flow Rate FiO2 10/22/16 16:00 63 10/22/16 16:00 98.1 63 27 126/59 98 10/22/16 14:00 60 10/22/16 12:00 98.1 75 27 96/55 96 10/22/16 12:00 75 10/22/16 10:00 60 10/22/16 09:09 98 Nasal Cannula 4.00 10/22/16 08:00 60 10/22/16 08:00 97.9 60 29 114/54 92 10/22/16 07:00 87 Nasal Cannula 4.00 10/22/16 06:00 60 10/22/16 04:00 60 10/22/16 04:00 98.4 60 20 117/86 90 10/22/16 02:00 60 10/22/16 00:32 97 Nasal Cannula 3.00 10/22/16 00:00 98.0 60 22 123/58 99 10/22/16 00:00 60 10/21/16 22:00 60 10/21/16 21:30 95 50 10/21/16 21:12 94 Nasal Cannula 3.00 10/21/16 20:00 60 10/21/16 20:00 98.4 60 20 110/57 96 10/21/16 19:00 Nasal Cannula 3.00 95 I/O 10/21/16 10/21/16 10/21/16 10/22/16 10/22/16 10/22/16 07:00 15:00 23:00 07:00 15:00 23:00 Intake Total 231 ml 1070 ml 1000 ml 100 ml 692 ml Output Total 450 ml 1500 ml 1250 ml 450 ml 1175 ml Balance -219 ml -430 ml -250 ml -350 ml -483 ml Intake Oral 100 ml 720 ml 500 ml 544 ml IV Total 131 ml 350 ml 500 ml 100 ml 148 ml Output Urine Total 450 ml 1500 ml 1250 ml 450 ml 1175 ml # Bowel Movements 1 3 2 Result Diagram: 10/22/1660910/22/1610 Objective Remarks GENERAL: MBMN WM mild sob SKIN: Warm and dry. HEAD: Normocephalic. EYES: No scleral icterus. No injection or drainage. NECK: Supple, trachea midline. No JVD or lymphadenopathy. CARDIOVASCULAR: Regular rate and rhythm without murmurs, gallops, or rubs. RESPIRATORY: Breath sounds equal bilaterally. No accessory muscle use. GASTROINTESTINAL: Abdomen soft, non-tender, nondistended. MUSCULOSKELETAL: No cyanosis, or edema. BACK: Nontender without obvious deformity. No CVA tenderness. A/P Assessment and Plan Hypercapnoic RF COPD CHF AF Pneumonia PLAN: CPAP prn and at night Cont Cefepime Aerosol nebs Symbicort 2 puffs bid Cont Amiodarone. Stable to tr to floor from pulm standpoint. Bahman Villarreal MD Oct 22, 2016 18:06
[2016-10-22] MEDS: TAMSULOSIN HCL 0.4 MG CAP PO SCH (20:03)
[2016-10-22] MEDS: ATORVASTATIN 10 MG TAB PO SCH (20:03)
--- NOTE | 2016-10-22 23:13 | PD.ID.CON ---
History of Present Illness Service ID Consult Requested By Dr Rowley Reason for Consult ESBL + UTI Primary Care Physician David Pratt MD Diagnoses: History of Present Illness Pt is a 76 yo male with mult med probx who is apoor historian presented with SOB with multiple comorbid conditions including hypertension, COPD, systolic CHF with EF of 35%, status post AICD, atrial fibrillation on Coumadin, anxiety and depression was brought into the hospital [facility] for worsening shortness of breath. Patient is currently on BiPAP and provided limited history. Patient was put on a by EMS and has been on BiPAP since arrival to the emergency room. He was started on azithromycin, cefepime His CXR showed infiltrate He has productive cough Pt improved from resp stanpoint and is ready for floor transfer Hen also has abnormal UA and is growing ESBL+ E.coli Pt denied any urinat symptoms Review of Systems ROS Limitations: Poor Historian Past Family Social History Allergies: Coded Allergies: Quinidex Extentab (Verified Allergy, Severe, PLATELETT COUNT DECREASES/ BLINDNESS, 05/11/16) Niacin (Verified Allergy, Intermediate, RASH/ITCHING, 05/11/16) MRI PRECAUTION (Verified Adverse Reaction, Severe, NON MRI COMPATIBLE DEFIB 10/22/15 LRS, 05/11/16) *MDRO Multi-Drug Resistant Organism (Verified Adverse Reaction, Unknown, ESBL, 10/22/16) ESBL E. coli (abd. 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 coli (urine) - 03/08/16, 09/28/16, 10/19/16 Past Medical History Questionable TIA with no residual deficit COPD Hypertension CHF, echo on 10/25/14 with EF of 30-35% Atrial fibrillation on Coumadin History of diverticular rupture status post colostomy and takedown of Depression and anxiety Past Surgical History AICD placement Partial colectomy and colostomy with reversal Active Ordered Medications Medications where reviewed in EMR Antibiotics Include: cefepime azithro Family History Reviewed and noncontributory. Social History Patient denies alcohol or illicit drugs. Admits to smoking 3-4 cigarettes a day. Physical Exam Vital Signs Vital Signs Date Time Temp Pulse Resp B/P Pulse Ox O2 Delivery O2 Flow Rate FiO2 10/22/16 22:12 96 50 10/22/16 22:00 63 10/22/16 20:00 60 10/22/16 20:00 97.4 60 16 112/56 99 10/22/16 19:00 93 Nasal Cannula 4.00 10/22/16 18:00 59 10/22/16 16:00 63 10/22/16 16:00 98.1 63 27 126/59 98 10/22/16 14:00 60 10/22/16 12:00 98.1 75 27 96/55 96 10/22/16 12:00 75 10/22/16 10:00 60 10/22/16 09:09 98 Nasal Cannula 4.00 10/22/16 08:00 60 10/22/16 08:00 97.9 60 29 114/54 92 10/22/16 07:00 87 Nasal Cannula 4.00 10/22/16 06:00 60 10/22/16 04:00 60 10/22/16 04:00 98.4 60 20 117/86 90 10/22/16 02:00 60 10/22/16 00:32 97 Nasal Cannula 3.00 10/22/16 00:00 98.0 60 22 123/58 99 10/22/16 00:00 60 Physical Exam CONSTITUTIONAL/GENERAL: This is an obese elederly patient, in no apparent distress. TUBES/LINES/DRAINS: SKIN: No jaundice, rashes, or lesions.. Skin temperature appropriate. Not diaphoretic. HEAD: Atraumatic. Normocephalic. EYES: Pupils equal and round and reactive. Extraocular motions intact. No scleral icterus. No injection or drainage. Fundi not examined. ENT: Hearing decreased. Nose without bleeding or purulent drainage. Oral mucosae without visible erythema, exudates, masses, or lesions. NECK: Trachea midline. Supple, nontender. No palpable thyroid enlargement or nodularity. CARDIOVASCULAR: Regular rate and rhythm without murmurs, gallops, or rubs. No JVD. Peripheral pulses symmetric. RESPIRATORY/CHEST: Symmetric, unlabored respirations. Clear to auscultation. Breath sounds equal bilaterally. No wheezes, rales, or rhonchi. GASTROINTESTINAL: Abdomen soft, non-tender, nondistended. No hepato-splenomegaly , or palpable masses. No guarding. Bowel sounds present. GENITOURINARY: Without palpable bladder distension. Chavez catheter in place with clear light yelllow urine MUSCULOSKELETAL: Extremities without clubbing, cyanosis, or edema. No joint tenderness or effusion noted. No calf tenderness. No mottling or clubbing. LYMPHATICS: No palpable cervical or supraclavicular adenopathy. NEUROLOGICAL: Awake and alert. Somewhat confused Motor and sensory grossly within normal limits. Follows commands. Speech nrmalrp. Moves all extremities. PSYCHIATRIC: No obvious anxiety/depression. no apparent hallucinations or other psychotic thought process. Laboratory Laboratory Tests Test 10/22/16 10/22/16 06:10 09:30 White Blood Count 4.7 Red Blood Count 3.74 Hemoglobin 10.5 Hematocrit 32.6 Mean Corpuscular Volume 87.2 Mean Corpuscular Hemoglobin 28.0 Mean Corpuscular Hemoglobin 32.1 Concent Red Cell Distribution Width 17.8 Platelet Count 148 Mean Platelet Volume 8.4 Prothrombin Time 17.5 Prothromb Time International 1.6 Ratio Sodium Level 139 Potassium Level 3.8 Chloride Level 94 Carbon Dioxide Level 38.8 Anion Gap 6 Blood Urea Nitrogen 32 Creatinine 1.02 Estimat Glomerular Filtration 71 Rate Random Glucose 129 Calcium Level 8.8 Urine Color YELLOW Urine Turbidity CLEAR Urine pH 6.0 Urine Specific [place] 1.018 Urine Protein TRACE Urine Glucose (UA) NEG Urine Ketones NEG Urine Occult Blood TRACE Urine Nitrite NEG Urine Bilirubin NEG Urine Urobilinogen LESS THAN 2.0 Urine Leukocyte Esterase LARGE Urine RBC 3 Urine WBC 12 Urine Bacteria OCC Urine Hyaline Casts 2 Urine Mucus FEW Microscopic Urinalysis Comment CATH-CULTURE IND Date/Time Procedure Status Source Growth 10/22/16 09:30 Urine Culture Received Urine Catheterized Urine Pending 10/19/16 04:20 Urine Culture - Final Complete Urine Clean Catch Escherichia Coli Esbl Positive 10/19/16 04:05 Aerobic Blood Culture - Preliminary Resulted Blood Peripheral NO GROWTH IN 3 DAYS 10/19/16 04:05 Anaerobic Blood Culture - Preliminary Resulted Blood Peripheral NO GROWTH IN 3 DAYS Result Diagram: 10/22/16 0610 10/22/16 0610 Imaging Last Impressions Chest X-Ray 10/21/16 0000 Signed Impressions: Service Date/Time: Friday, October 21, 2016 10:33 - CONCLUSION: Stable chest Cale Andrea MD Assessment and Plan Assessment and Plan PNA, bibasilae Suspected UTI ESBL + org vs bacteriruria - cont current abx - fu repeat urine clx - further rec to follow based on clx report, clincial progress Elyssa Velazquez MD Oct 22, 2016 23:12
[2016-10-23] VITALS (16 sets, daily range): BP systolic 98–144; BP diastolic 53–66; PULSE 59–85; RESP 22–34; TEMP 97.8–98.4; O2SAT 90–99
[2016-10-23] MEDS: CEFEPIME INJ 2,000 MG in SODIUM CHLORIDE 0.9% INJ 100 ML IV SCH ×3 (02:26→17:50)
[2016-10-23] MEDS: CHLORHEXIDINE GLUCONATE 2 % 1 PACK (2 CLOTHS) TOP SCH (02:26)
[2016-10-23] MEDS: RESP: ALBUTEROL 2.5 MG/IPRATROPIUM 0.5 MG NEB (SCH) INH ×3 (04:00→15:07)
[2016-10-23 06:55] LABS: HEMATOCRIT 34.1 % (39.0-51.0); MEAN CORPUSCULAR HEMOGLOBIN 27.7 PG (27.0-34.0); MEAN CORPUSCULAR HGB CONC 31.5 % (32.0-36.0); PLATELET COUNT 160 TH/MM3 (150-450); RED BLOOD COUNT 3.88 MIL/MM3 (4.50-5.90); RED CELL DISTRIBUTION WIDTH 17.8 % (11.6-17.2); REVIEW FLAG FINAL; WHITE BLOOD COUNT 5.8 TH/MM3 (4.0-11.0)
[2016-10-23 06:58] LABS: INTERNATIONAL NORMALIZED RATIO 2.1 RATIO; PROTHROMBIN TIME - PATIENT 23.5 SEC (9.8-11.6)
[2016-10-23 07:13] LABS: BICARBONATE 37.9 MEQ/L (21.0-32.0)
[2016-10-23] MEDS: SODIUM CHLORIDE 0.9% FLUSH 5 ML FLUSH FLUSH SCH ×2 (08:24→19:52)
[2016-10-23] MEDS: BUDESONIDE-FORMOTEROL 160/4.5 MCG INHALER INH SCH ×2 (08:24→19:52)
[2016-10-23] MEDS: clonazePAM 0.5 MG TAB PO SCH ×2 (08:25→19:51)
[2016-10-23] MEDS: FUROSEMIDE 40 MG/4 ML VIAL IV PUSH SCH ×2 (08:25→17:50)
[2016-10-23] MEDS: PANTOPRAZOLE SOD 20 MG DELAYED RELEASE TAB PO SCH (08:25)
[2016-10-23] MEDS: CARVEDILOL 6.25 MG TAB PO SCH ×2 (08:25→19:52)
[2016-10-23] MEDS: POTASSIUM CHLORIDE 20 MEQ CONTROLLED RELEASE TAB PO SCH ×2 (08:25→19:52)
[2016-10-23] MEDS: ESCITALOPRAM OXALATE 10 MG TAB PO SCH (08:25)
[2016-10-23] MEDS: AMIODARONE 200 MG TAB PO SCH (08:25)
--- NOTE | 2016-10-23 09:28 | HHI.PR ---
Subjective Remarks Patient reports that he is feeling better today. Breathing improved. He is on 4 L nasal cannula. Objective Vitals Vital Signs Date Time Temp Pulse Resp B/P Pulse Ox O2 Delivery O2 Flow Rate FiO2 10/23/16 08:29 96 Nasal Cannula 4.00 10/23/16 08:00 81 10/23/16 07:00 92 Nasal Cannula 5.00 10/23/16 06:00 60 10/23/16 05:08 6.00 10/23/16 04:00 98.0 59 27 113/54 92 10/23/16 04:00 59 10/23/16 02:00 59 10/23/16 00:00 98.4 60 27 114/56 93 10/23/16 00:00 60 10/22/16 22:12 96 50 10/22/16 22:00 63 10/22/16 20:00 60 10/22/16 20:00 97.4 60 16 112/56 99 10/22/16 19:00 93 Nasal Cannula 4.00 10/22/16 18:00 59 10/22/16 16:00 63 10/22/16 16:00 98.1 63 27 126/59 98 10/22/16 14:00 60 10/22/16 12:00 98.1 75 27 96/55 96 10/22/16 12:00 75 10/22/16 10:00 60 I/O 10/22/16 10/22/16 10/22/16 10/23/16 10/23/16 10/23/16 07:00 15:00 23:00 07:00 15:00 23:00 Intake Total 100 ml 692 ml 253 ml 153 ml Output Total 450 ml 1175 ml 1150 ml 350 ml Balance -350 ml -483 ml -897 ml -197 ml Intake Oral 544 ml IV Total 100 ml 148 ml 253 ml 153 ml Output Urine Total 450 ml 1175 ml 1150 ml 350 ml # Bowel Movements 2 Result Diagram: 10/23/1640 10/23/1640 Objective Remarks GENERAL: Obese male, on nasal cannula. In no acute distress. SKIN: Multiple bruising over the upper and lower extremities. HEAD: Atraumatic. Normocephalic. No temporal or scalp tenderness. CARDIOVASCULAR: Regular rate and rhythm without murmurs, gallops, or rubs. RESPIRATORY: Air movement is fair. There are crackles and some rhonchi bilaterally at the bases with occasional rhonchi. Otherwise clear to auscultation. GASTROINTESTINAL: Abdomen soft, non-tender, nondistended. No hepato-splenomegaly , or palpable masses. No guarding. MUSCULOSKELETAL: Extremities without edema. NEUROLOGICAL: Awake and alert. Normal speech. A/P Assessment and Plan 76-year-old male with acute on chronic hypoxic respiratory failure probably secondary to COPD exacerbation, pneumonia, CHF COPD exacerbation: He came in hypoxic and requiring BiPAP. Currently improving and down to nasal cannula. He is to use BiPAP as needed per pulmonology -Continue IV Solu-Medrol, plan to transition to oral tomorrow. Breathing treatments, Symbicort - Continue with cefepime and Azithromycin for presumed HCAP - Pulmonology following. PNA: Chest x-ray image reviewed and shows bilateral basilar consolidation. Continue cefepime and Azithromycin as above. Follow blood cultures. Repeat chest x-ray in a.m. Acute on chronic systolic CHF: Status post AICD Last Echo on record on 10/25/14 w/ EF 30-35%. Scout crackles on admission. s/p Lasix 40 mg in the ED. - Continue with Lasix 40 mg IV BID. - Continue Coreg. Blood pressure currently cannot handle OMAR inhibitors. Repeat echo shows LVEF of 35-40% with global hypokinesis. - We'll transition to oral Lasix in a.m. UTI with ESBL Escherichia coli: This is a recurrence for the patient. He does not appear to be septic or experiencing symptoms from this currently.? Colonization. -Infectious disease following. Monitor repeat cultures Atrial fibrillation: - Continue Coreg and amiodarone. Patient is on Coumadin but INR supratherapeutic at 9 on admission. Status post vitamin K. INR now 2.1. Continue Coumadin. Follow INR Supratherapeutic INR: Resolved. Unclear if there has been any recent changes in his dosing. - He is status post vitamin K as above. No bleeding currently. Coumadin resumed. Follow INR in a.m. GI prophylaxis: PPI. DVT PPx: On coumadin DNR. Confirmed with patient and niece. Bony Rowley MD Oct 23, 2016 09:28
[2016-10-23] MEDS: methylPREDNISolone SOD SUCC 40 MG/1 ML VIAL IV SCH ×2 (11:05→19:52)
[2016-10-23] MEDS: AZITHROMYCIN INJ 500 MG in SODIUM CHLOR 0.9% 250 ML INJ 250 ML IV SCH (12:06)
[2016-10-23] MEDS: WARFARIN SOD 2 MG TAB PO SCH (15:50)
--- NOTE | 2016-10-23 19:27 | HHI.PR ---
Subjective Remarks 76 YOWM with COPD,Hypercapnoic RF now on NC mild sob no CP Feels better , tired,weak Anxious to go to PO rehab Objective Vital Signs Vital Signs Date Time Temp Pulse Resp B/P Pulse Ox O2 Delivery O2 Flow Rate FiO2 10/23/16 18:00 61 10/23/16 16:00 59 10/23/16 16:00 98.4 59 32 117/58 93 10/23/16 14:00 60 10/23/16 12:00 65 10/23/16 12:00 98.0 65 30 105/54 97 10/23/16 10:00 66 10/23/16 08:29 96 Nasal Cannula 4.00 10/23/16 08:00 81 10/23/16 08:00 97.9 85 26 98/57 94 10/23/16 07:00 92 Nasal Cannula 5.00 10/23/16 06:00 60 10/23/16 05:08 6.00 10/23/16 04:00 98.0 59 27 113/54 92 10/23/16 04:00 59 10/23/16 02:00 59 10/23/16 00:00 98.4 60 27 114/56 93 10/23/16 00:00 60 10/22/16 22:12 96 50 10/22/16 22:00 63 10/22/16 20:00 60 10/22/16 20:00 97.4 60 16 112/56 99 I/O 10/22/16 10/22/16 10/22/16 10/23/16 10/23/16 10/23/16 07:00 15:00 23:00 07:00 15:00 23:00 Intake Total 100 ml 692 ml 253 ml 153 ml 894 ml 550 ml Output Total 450 ml 1175 ml 1150 ml 350 ml 1200 ml Balance -350 ml -483 ml -897 ml -197 ml -306 ml 550 ml Intake Oral 544 ml 550 ml 444 ml IV Total 100 ml 148 ml 253 ml 153 ml 344 ml 106 ml Output Urine Total 450 ml 1175 ml 1150 ml 350 ml 1200 ml # Bowel Movements 2 1 1 Result Diagram: 10/23/16 0540 10/23/16 0540 Objective Remarks GENERAL: MBMN WM mild sob SKIN: Warm and dry. HEAD: Normocephalic. EYES: No scleral icterus. No injection or drainage. NECK: Supple, trachea midline. No JVD or lymphadenopathy. CARDIOVASCULAR: Regular rate and rhythm without murmurs, gallops, or rubs. RESPIRATORY: Breath sounds equal bilaterally. No accessory muscle use. GASTROINTESTINAL: Abdomen soft, non-tender, nondistended. MUSCULOSKELETAL: No cyanosis, or edema. BACK: Nontender without obvious deformity. No CVA tenderness. A/P Assessment and Plan Hypercapnoic RF COPD CHF AF Pneumonia PLAN: CPAP prn and at night Cont Cefepime Aerosol nebs Symbicort 2 puffs bid Cont Amiodarone. Stable to tr to floor from pulm standpoint. DC plans for SNF/rehab Bahman Villarreal MD Oct 23, 2016 19:27
[2016-10-23] MEDS: TAMSULOSIN HCL 0.4 MG CAP PO SCH (19:51)
[2016-10-23] MEDS: ATORVASTATIN 10 MG TAB PO SCH (19:51)
[2016-10-24] MEDS: CEFEPIME INJ 2,000 MG in SODIUM CHLORIDE 0.9% INJ 100 ML IV SCH (02:30)
[2016-10-24] MEDS: CHLORHEXIDINE GLUCONATE 2 % 1 PACK (2 CLOTHS) TOP SCH (04:00)
[2016-10-24 05:25] VITALS: BP 129/63; PULSE 60; RESP 22; TEMP 97.3; O2SAT 98
--- NOTE | 2016-10-24 06:38 | RADRPT ---
EXAM DATE/TIME: 10/24/2016 06:23 [place] COMPARISON: CHEST SINGLE AP, October 21, 2016, 10:33. INDICATIONS : Short of breath. CHF. MEDICAL HISTORY : Congestive heart failure. SURGICAL HISTORY : None. ENCOUNTER: Subsequent ACUITY: 3 days PAIN SCORE: 5/10 LOCATION: Bilateral chest FINDINGS: Cardiomegaly. Pacer/ICD device again noted. EKG leads are present. Patchy parenchymal densities at eve th lung bases are again seen, slightly improved on the right. CONCLUSION: Slight improved aeration on the right. Loc Campbell MD on October 24, 2016 at 6:35 Board Certified Radiologist. This report was verified electronically.
[2016-10-24 07:04] LABS: HEMATOCRIT 34.3 % (39.0-51.0); MEAN CELL VOLUME 87.2 FL (80.0-100.0); MEAN CORPUSCULAR HEMOGLOBIN 27.7 PG (27.0-34.0); MEAN CORPUSCULAR HGB CONC 31.8 % (32.0-36.0); PLATELET COUNT 154 TH/MM3 (150-450); RED BLOOD COUNT 3.93 MIL/MM3 (4.50-5.90); RED CELL DISTRIBUTION WIDTH 17.7 % (11.6-17.2); REVIEW FLAG FINAL; WHITE BLOOD COUNT 7.9 TH/MM3 (4.0-11.0)
[2016-10-24 07:19] LABS: BICARBONATE 35.7 MEQ/L (21.0-32.0); POTASSIUM 4.6 MEQ/L (3.5-5.1)
[2016-10-24 07:31] LABS: INTERNATIONAL NORMALIZED RATIO 2.6 RATIO; PROTHROMBIN TIME - PATIENT 29.9 SEC (9.8-11.6)
[2016-10-24 08:07] VITALS: BP 122/63; PULSE 60; RESP 21; TEMP 98; O2SAT 98
[2016-10-24] MEDS ORDERED: FUROSEMIDE 40 MG TAB PO SCH (09:00)
[2016-10-24 09:07] VITALS: O2SAT 98
[2016-10-24] MEDS ORDERED: PRED20 PO (09:41)
[2016-10-24] MEDS ORDERED: WARF4TAB51 PO (09:41)
[2016-10-24] MEDS ORDERED: HYDR-4107 PO (09:41)
[2016-10-24] MEDS ORDERED: AUGM12TA2 PO (09:47)
--- NOTE | 2016-10-24 09:49 | HHI.DS ---
Discharge Summary Admission Date Oct 19, 2016 at 05:23 Discharge Date: Oct 24, 2016 Admitting Diagnosis CHF, PNA, Dyspnea (1) COPD exacerbation ICD Code: J44.1 (2) Pneumonia ICD Code: J18.9 (3) Warfarin-induced coagulopathy ICD Code: D69.9 (4) Congestive heart failure ICD Code: I50.9 Procedures None Brief History - From Admission 76-year-old male with multiple comorbid conditions including hypertension, COPD , systolic CHF with EF of 35%, status post AICD, atrial fibrillation on Coumadin , anxiety and depression was brought into the hospital from a skill nursing facility for worsening shortness of breath. Patient is currently on BiPAP and provided limited history. He reports over the past week he has been having increasing shortness of breath at the intermediate facility. His niece and archeologist classical at bedside reports he normally has issues with shortness of breath and he has been having good and bad days at the intermediate facility. He denies associated chest pain. Patient was put on a by EMS and has been on BiPAP since arrival to the emergency room. Currently he reports that he is breathing slightly better. Workup in the emergency room revealed probable pneumonia and CHF. His INR was found to be supratherapeutic at 9. No reported bleeding. Patient is being admitted for further workup and treatment CBC/BMP: 10/24/16 0610 10/24/16 0610 Significant Findings Laboratory Tests Test 10/22/16 10/22/16 10/23/16 10/24/16 06:10 09:30 05:40 06:10 Red Blood Count 3.74 MIL/MM3 3.88 MIL/MM3 3.93 MIL/MM3 (4.50-5.90) (4.50-5.90) (4.50-5.90) Hemoglobin 10.5 GM/DL 10.7 GM/DL 10.9 GM/DL (13.0-17.0) (13.0-17.0) (13.0-17.0) Hematocrit 32.6 % 34.1 % 34.3 % (39.0-51.0) (39.0-51.0) (39.0-51.0) Red Cell Distribution Width 17.8 % 17.8 % 17.7 % (11.6-17.2) (11.6-17.2) (11.6-17.2) Platelet Count 148 TH/MM3 (150-450) Prothrombin Time 17.5 SEC 23.5 SEC 29.9 SEC (9.8-11.6) (9.8-11.6) (9.8-11.6) Chloride Level 94 MEQ/L 95 MEQ/L (98-107) (98-107) Carbon Dioxide Level 38.8 MEQ/L 37.9 MEQ/L 35.7 MEQ/L (21.0-32.0) (21.0-32.0) (21.0-32.0) Blood Urea Nitrogen 32 MG/DL (7-18) 33 MG/DL (7-18) 31 MG/DL (7-18) Estimat Glomerular Filtration 71 ML/MIN (>89) 66 ML/MIN (>89) 81 ML/MIN (>89) Rate Random Glucose 129 MG/DL 123 MG/DL 117 MG/DL (74-106) (74-106) (74-106) Urine Occult Blood TRACE (NEG) Urine Leukocyte Esterase LARGE (NEG) Urine WBC 12 /hpf (0-5) Urine Bacteria OCC /hpf (NONE) Urine Mucus FEW /lpf (OCC) Mean Corpuscular Hemoglobin 31.5 % 31.8 % Concent (32.0-36.0) (32.0-36.0) Calcium Level 8.4 MG/DL (8.5-10.1) Imaging Last Impressions Chest X-Ray 10/24/16 0600 Signed Impressions: Service Date/Time: Monday, October 24, 2016 06:23 - CONCLUSION: Slight improved aeration on the right. Loc Campbell MD PE at Discharge GENERAL: Obese male, on nasal cannula. In no acute distress. SKIN: Multiple bruising over the upper and lower extremities. HEAD: Atraumatic. Normocephalic. No temporal or scalp tenderness. CARDIOVASCULAR: Regular rate and rhythm without murmurs, gallops, or rubs. RESPIRATORY: Air movement is fair. Much improved with faint crackles at the bases otherwise clear to auscultation. GASTROINTESTINAL: Abdomen soft, non-tender, nondistended. No hepato-splenomegaly , or palpable masses. No guarding. MUSCULOSKELETAL: Extremities without edema. NEUROLOGICAL: Awake and alert. Normal speech. Pt update on day of discharge Patient reports he is feeling much better. Anxious to go back to the intermediate facility. Respiratory status is at baseline. No chest pain or pressure. Hospital Course 76-year-old male with acute on chronic hypoxic respiratory failure probably secondary to COPD exacerbation, pneumonia, CHF. Evaluation and treatment course detailed below: COPD exacerbation: He came in hypoxic and requiring BiPAP. Patient was followed by pulmonology. He was treated with BiPAP, IV Solu-Medrol, breathing treatments. He was treated for presumed HCAP PNA: Chest x-ray image reviewed and shows bilateral basilar consolidation. Patient treated with cefepime and azithromycin. He is discharged on antibiotics to complete the course of treatment. Acute on chronic systolic CHF: Status post AICD Last Echo on record on 10/25/14 w/ EF 30-35%. Scout crackles on admission. s/p Lasix 40 mg in the ED. patient treated with IV Lasix. His blood pressure could not tolerate janeen inhibitors. Repeat echo shows LVEF of 35-40% with global hypokinesis. UTI with ESBL Escherichia coli: This is a recurrence for the patient. He does not appear to be septic or experiencing symptoms from this currently.? Colonization. Infectious disease followed the patient. Repeat urine cultures were negative. Atrial fibrillation: - Continue Coreg and amiodarone. Patient is on Coumadin but INR supratherapeutic at 9 on admission. Status post vitamin K. INR therapeutic on discharge. He is discharged on 2 mg of Coumadin daily instead of 3 mg. INR needs to be followed outpatient. Supratherapeutic INR: Resolved. Unclear if there has been any recent changes in his dosing. - He is status post vitamin K as above. No bleeding currently. Coumadin resumed as above. Pt Condition on Discharge: Good Discharge Disposition: ACL[facility]/GROUP HOME Discharge Time: > 30 minutes Discharge Instructions DIET: Follow Instructions for: Heart Healthy Diet Activities you can perform: Regular-No Restrictions, See Additionl Instruction Other Activity Instructions: Her PT instructions. New Medications: Amoxicillin-Clavulanate ER 12 HR (Augmentin Xr 12 HR) 1,000-62.5 Mg Tab 2000 MG PO BID Not for children or adolescents <40 kg. Not for CrCl <30 mL/min or hemodialysis. Not interchangeable with (2) 500 mg tabs. Infection #14 Ref 0 TAB Changed Medications: Prednisone (Prednisone) 20 Mg Tab 20 MG PO DIRECTED Take 60 MG daily x 4 days, then 40 MG x 4 days, then 20 MG daily x 4 days. #24 Ref 0 TAB (Changed from: Prednisone 5 Mg Tab 5 Mg PO DIRECTED 10 Days Ref 0) Warfarin (Warfarin) 2 Mg Tab 2 MG PO DAILY Blood Clot Prevention #30 Ref 0 TAB (Changed from: Warfarin 3 Mg Tab 3 Mg PO MONWEDFRISUN #30 TAB Ref 0) Continued Medications: Albuterol 18 GM Inh (Ventolin Hfa 18 GM Inh) 90 Mcg/Act Aer 2 PUFF INH Q4-6H PRN SHORTNESS OF BREATH #1 Ref 0 INHALER Amiodarone (Amiodarone) 200 Mg Tab 200 MG PO DAILY Regulate Heart Beat #30 Ref 0 TAB Atorvastatin (Atorvastatin) 10 Mg Tab 10 MG PO HS Cholesterol Management #30 Ref 0 TAB Budesonide-Formoterol Inh (Symbicort Inh) 160-4.5 Mcg/Act Aero 2 PUFF INH Q12HR copd #1 Ref 0 INHALER Calcium Carbonate-Cholecalciferol (Calcium 600 with Vitamin D) 600-400 mg-Unit Tab 1 TAB PO BID Calcium Supplement Ref 0 TAB Carvedilol (Coreg) 12.5 Mg Tab 6.25 MG PO BID a-fib Days 30 Ref 0 TAB Clonazepam (Clonazepam) 0.5 Mg Tab 0.5 MG PO BID #20 Ref 0 TAB Escitalopram (Escitalopram) 10 Mg Tab 10 MG PO DAILY #30 Ref 0 TAB Furosemide (Furosemide) 40 Mg Tab 40 MG PO DAILY #30 Ref 0 TAB Guaifenesin-Codeine Liq (Cheratussin AC Liq) 100-10 Mg/5 Ml Syrp 5 ML PO Q4H Do not exceed 6 doses/24 hrs. PRN COUGH AND COLD SYMPTOMS Ref 0 ML Hydrocodone-Acetaminophen (Hydrocodone-Acetaminophen) 5-300 Mg Tab 1 TAB PO Q6HR PRN PAIN #20 Ref 0 TAB (This prescription has been renewed) Ipratropium-Albuterol Neb (Duoneb) 0.5-2.5 Mg/3 Ml Neb 1 NEBULE INH Q6HR NEB PRN SHORTNESS OF BREATH #120 Ref 0 NEBULE Omeprazole (Omeprazole) 20 Mg Tab 20 MG PO DAILY #30 Ref 0 TAB Potassium Chloride Microencaps (Klor-Con M20) 20 Meq Tab 20 MEQ PO Q12HR Electrolyte Replacement #60 Ref 0 TAB Tamsulosin (Tamsulosin) 0.4 Mg Cap 0.4 MG PO HS Manage Prostate Problems #30 Ref 0 CAP Discontinued Medications: Warfarin (Warfarin) 3 Mg Tab 1.5 MG PO TUETHURSAT Blood Clot Prevention #30 Ref 0 TAB Bony Rowley MD Oct 24, 2016 09:48
[2016-10-24] MEDS: BUDESONIDE-FORMOTEROL 160/4.5 MCG INHALER INH SCH (10:39)
[2016-10-24] MEDS: ESCITALOPRAM OXALATE 10 MG TAB PO SCH (10:41)
[2016-10-24] MEDS: clonazePAM 0.5 MG TAB PO SCH (10:42)
[2016-10-24] MEDS: CARVEDILOL 6.25 MG TAB PO SCH (10:42)
[2016-10-24] MEDS: POTASSIUM CHLORIDE 20 MEQ CONTROLLED RELEASE TAB PO SCH (10:42)
[2016-10-24] MEDS: AMIODARONE 200 MG TAB PO SCH (10:43)
[2016-10-24] MEDS: PANTOPRAZOLE SOD 20 MG DELAYED RELEASE TAB PO SCH (10:43)
[2016-10-24] MEDS: methylPREDNISolone SOD SUCC 40 MG/1 ML VIAL IV SCH (10:45)
[2016-10-24 10:48] VITALS: PULSE 59
[2016-10-24] MEDS: AZITHROMYCIN INJ 500 MG in SODIUM CHLOR 0.9% 250 ML INJ 250 ML IV SCH (10:53)
[2016-10-24 12:24] VITALS: BP 144/67; PULSE 64; RESP 22; TEMP 98.3; O2SAT 96
== END 2016-10-24 12:50 | DRG 189 ==
LOC: NEPC 03:50 → NEDA 05:23 → HIMN 08:20 → N04A 10-23 20:57
PROVIDERS: ADMIT Family Medicine; ATTEND Family Medicine
DX: J96.21 Acute and chronic respiratory failure with hypoxia (principal); I50.23 Acute on chronic systolic (congestive) heart failure; J18.9 Pneumonia, unspecified organism; I11.0 Hypertensive heart disease with heart failure; I42.9 Cardiomyopathy, unspecified; I48.91 Unspecified atrial fibrillation; J44.0 Chronic obstructive pulmonary disease with (acute) lower respiratory infection; J44.1 Chronic obstructive pulmonary disease with (acute) exacerbation; F17.210 Nicotine dependence, cigarettes, uncomplicated; F41.9 Anxiety disorder, unspecified; F32.9 Major depressive disorder, single episode, unspecified; K21.9 Gastro-esophageal reflux disease without esophagitis; R79.1 Abnormal coagulation profile; Z95.810 Presence of automatic (implantable) cardiac defibrillator; Z66 Do not resuscitate; Z79.01 Long term (current) use of anticoagulants
CPT/HCPCS: 36600; 51702; 71010; 76937; 80048; 80053; 81001; 82550; 82805; 83605; 83690; 83735; 83880; 84484; 85025; 85027; 85610; 85730; 87040; 87077; 87086; 87186; 87641; 93005; 93306; 94002; 94003; 94640; 94664; 96365; 96375; J0456; J0692; J1940; J2920; J2930; J3370; J3430; J7040; J7050

== ENCOUNTER 2016-11-02 13:02 | Inpatient (IN) | payer MEDICARE, BC ==
[2016-11-02] VITALS (10 sets, daily range): BP systolic 90–120; BP diastolic 54–59; PULSE 59–81; RESP 19–24; TEMP 97.7–98.8; O2SAT 93–99
[~2016-11-02] VITALS: Ht 175.3 cm; Wt 96.2 kg
[~2016-11-02 13:02] MED LIST changes: +AUGM12TA2 PO; +PRED20 PO; -PRED5TAB PO; -WARF-58 PO; +WARF4TAB51 PO
--- NOTE | 2016-11-02 13:10 | PD ---
HPI Chief Complaint: rectal bleed Time Seen by Provider: 13:09 Travel History International Travel<30 days: No Contact w/Intl Traveler<30days: No Traveled to known affect area: No History of Present Illness HPI 76-year-old male came to the emergency room sent from the skilled nursing with history of rectal bleed x one this morning at 11:30. Patient is not in any discomfort. He requires a lot of assistance and was really unaware of this bleeding episode. Patient is on Coumadin for atrial fibrillation. Vitals were stable otherwise. His awake and answering questions appropriately. No history of syncopal episode. No history of vomiting blood. No history of nausea or vomit. PFSH Past Medical History Narrative Medical List of his past medical, surgical, social and family history as reviewed from the nursing note. Hx Anticoagulant Therapy: Yes (coumadin) Asthma: No Atrial Fibrillation: Yes Autoimmune Disease: Yes Blood Disorders: Yes (platelet issues - very low count) Anxiety: Yes Depression: Yes Heart Rhythm Problems: Yes (pacer, defibrilator) Cancer: No Cardiac Catheterization: Yes (PACER BATTERY REPLACED 05/11/16) Cardiovascular Problems: Yes High Cholesterol: No Chemotherapy: No Chest Pain: No Congestive Heart Failure: Yes COPD: Yes Cerebrovascular Accident: No Diabetes: No Diminished Hearing: No Endocrine: No Gastrointestinal Disorders: Yes (GERD, HX DIVERTICULITIS, COLOSTOMY) GERD: No Glaucoma: No Genitourinary: Yes Hepatitis: No Hiatal Hernia: Yes Hypertension: Yes Immune Disorder: No Implanted Vascular Access Dvce: Yes Kidney Stones: No Musculoskeletal: Yes (back pain) Neurologic: Yes (TIA 7 months ago) Psychiatric: No Reproductive: No Respiratory: Yes (COPD) Integumentary: No Immunizations Current: Yes Myocardial Infarction: Yes Radiation Therapy: No Renal Failure: No Seizures: No Sleep Apnea: No Thyroid Disease: No Ulcer: No PNEUMOCCOCAL Vaccine (Year): 1 Past Surgical History Abdominal Surgery: Yes (RUPT. DIVERTICULUM SX/ COLOSTOMY 10/13/2014) AICD: Yes (Molecular TemplatesTRONIC) Body Medical Devices: pacemaker and defibrillator Cardiac Surgery: Yes (AICD IMPL.) Ear Surgery: No Endocrine Surgery: No Eye Surgery: Yes (COSME. CATARACT EXTRACT) Genitourinary Surgery: No Gynecologic Surgery: No Joint Replacement: No Oral Surgery: No Pacemaker: Yes (W/AICD) Thoracic Surgery: No Other Surgery: Yes (pacemaker defib,colostomy/reversal, Abdominal Sx) Social History Alcohol Use: No Tobacco Use: Yes (3-4 CIGARETTES/DAY) Substance Use: No Allergies-Medications (Allergen,Severity, Reaction): Coded Allergies: Quinidex Extentab (Verified Allergy, Severe, PLATELETT COUNT DECREASES/ BLINDNESS, 11/02/16) Niacin (Verified Allergy, Intermediate, RASH/ITCHING, 11/02/16) MRI PRECAUTION (Verified Adverse Reaction, Severe, NON MRI COMPATIBLE DEFIB 10/22/15 LRS, 11/02/16) *MDRO Multi-Drug Resistant Organism (Verified Adverse Reaction, Unknown, ESBL, 11/02/16) ESBL E. coli (abd. 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 coli (urine) - 03/08/16, 09/28/16, 10/19/16 Comments List of his allergies reviewed from the nursing note. Reported Meds & Prescriptions Reported Meds & Active Scripts Active Hydrocodone-Acetaminophen 5-300 Mg Tab 1 Tab PO Q6HR PRN Warfarin 2 Mg Tab 2 Mg PO DAILY Duoneb (Ipratropium-Albuterol Neb) 0.5-2.5 Mg/3 Ml Neb 1 Nebule INH Q6HR NEB PRN Clonazepam 0.5 Mg Tab 0.5 Mg PO BID Coreg (Carvedilol) 12.5 Mg Tab 6.25 Mg PO BID 30 Days Symbicort Inh (Budesonide/Formoterol Fumarate) 160-4.5 Mcg/Act Aero 2 Puff INH Q12HR Reported Calcium 500+D (Calcium Carbonate-Cholecalciferol) 500-200 Mg-Unit Tab 1 Tab PO BID Prednisone 20 Mg Tab 20 Mg PO DAILY Thera-M (Multiple Vitamins W/ Minerals) 1 Tab 1 Tab PO DAILY Ventolin Hfa 18 GM Inh (Albuterol Sulfate) 90 Mcg/Act Aer 2 Puff INH Q4HR PRN Tamsulosin (Tamsulosin HCl) 0.4 Mg Cap 0.4 Mg PO HS Omeprazole 20 Mg Tab 20 Mg PO DAILY Klor-Con M20 (Potassium Chloride Microencaps) 20 Meq Tab 20 Meq PO Q12HR Furosemide 40 Mg Tab 40 Mg PO DAILY Escitalopram (Escitalopram Oxalate) 10 Mg Tab 10 Mg PO DAILY Atorvastatin (Atorvastatin Calcium) 10 Mg Tab 10 Mg PO HS Amiodarone (Amiodarone HCl) 200 Mg Tab 200 Mg PO DAILY Narrative Medication List of his home medications reviewed from the nursing note. Review of Systems Except as stated in HPI: all other systems reviewed are Neg Physical Exam Narrative GENERAL: Awake, alert, elderly, moderate distress SKIN: Warm and dry. Multiple ecchymosis HEAD: Atraumatic. Normocephalic. EYES: Pupils equal and round. No scleral icterus. No injection or drainage. ENT: No nasal bleeding or discharge. Mucous membranes pink and moist. NECK: Trachea midline. No JVD. CARDIOVASCULAR: Regular rate and rhythm. No murmur appreciated. RESPIRATORY: No accessory muscle use. Clear to auscultation. Breath sounds equal bilaterally. GASTROINTESTINAL: Abdomen soft, non-tender, nondistended. Hepatic and splenic margins not palpable. MUSCULOSKELETAL: No obvious deformities. No clubbing. No cyanosis. No edema. NEUROLOGICAL: Awake and alert. No obvious cranial nerve deficits. Motor grossly within normal limits. Normal speech. PSYCHIATRIC: Appropriate mood and affect; insight and judgment normal. Data Data Last Documented VS Orders Basic Metabolic Panel (Bmp) (11/02/16 13:16) Complete Blood Count With Diff (11/02/16 13:16) Prothrombin Time / Inr (Pt) (11/02/16 13:16) Type And Screen (11/02/16 13:16) Ecg Monitoring (11/02/16 13:16) Iv Access Insert/Monitor (11/02/16 13:16) Oximetry (11/02/16 13:16) Sodium Chloride 0.9% Flush (Ns Flush) (11/02/16 13:30) C Diff Toxin Pcr (11/02/16 13:16) Sodium Chlorid 0.9% 500 Ml Inj (Ns 500 M (11/02/16 13:30) Phytonadione Inj (Vitamin K Inj) (11/02/16 14:15) Admit Order (Ed Use Only) (11/02/16 15:25) Labs MDM Medical Decision Making Medical Screen Exam Complete: Yes Emergency Medical Condition: Yes Medical Record Reviewed: Yes Differential Diagnosis Diverticulosis, colitis, upper GI bleed, hemorrhoid, C. difficile colitis Narrative Course 2:18 p.m. blood test results are back. Patient is slightly anemic but does not require blood transfusion yet. INR is 3. Given his rectal exam and with that INR I've ordered subcutaneous vitamin K. Patient should go to the ICU. Awaiting for the sales and operations trainee and the GI specialist to call back. I ordered 500 cc of IV fluid bolus for him as well. 2:26 PM I discussed the case with the sales and operations trainee Dr. Mondragon and he preferred that this patient goes to the hospitalist service in ICU since he is conscious and otherwise hemodynamically stable. Awaiting for the hospitalist to call back. Critical Care Narrative Aggregate critical care time was 30 minutes. Time to perform other separately billable procedures was not included in the critical care time. My time did not include minutes spent treating any other patients simultaneously or on activities that did not directly contribute to the patient's treatment. The services I provided to this patient were to treat and/or prevent clinically significant deterioration that could result in: GI bleed, INR 3, vitamin K I provided critical care services requiring my management, as noted below: Chart data review, documentation time, medication orders and management, vital sign assessments/reviewing monitor data, ordering and reviewing lab tests, ordering and interpreting/reviewing x-rays and diagnostic studies, care of the patient and discussion of the patient with the admitting physicians. Procedures EKG Prior to Arrival: No HemaPrompt Point of Care Internal Pos. & Neg. Controls: Passed Fecal Specimen Occult Blood: Positive Comment Gross blood. Physician Communication Physician Communication Dr. Mondragon Diagnosis Primary Impression: Rectal bleed Additional Impression: Supratherapeutic INR Admitting Information Admitting Physician Requests: Admit Flor Lofton MD Nov 02, 2016 13:10 Prothrombin Time 35.2 SEC Prothromb Time International 3.0 RATIO Ratio Sodium Level 139 MEQ/L Potassium Level 4.4 MEQ/L Chloride Level 100 MEQ/L Carbon Dioxide Level 33.3 MEQ/L Anion Gap 6 MEQ/L Blood Urea Nitrogen 16 MG/DL Creatinine 0.87 MG/DL Estimat Glomerular Filtration 86 ML/MIN Rate Random Glucose 129 MG/DL Calcium Level 8.3 MG/DL MDM Medical Decision Making Medical Screen Exam Complete: Yes Emergency Medical Condition: Yes Medical Record Reviewed: Yes Differential Diagnosis Diverticulosis, colitis, upper GI bleed, hemorrhoid, C. difficile colitis Narrative Course 2:18 p.m. blood test results are back. Patient is slightly anemic but does not require blood transfusion yet. INR is 3. Given his rectal exam and with that INR I've ordered subcutaneous vitamin K. Patient should go to the ICU. Awaiting for the sales and operations trainee and the GI specialist to call back. I ordered 500 cc of IV fluid bolus for him as well. 2:26 PM I discussed the case with the sales and operations trainee Dr. Mondragon and he preferred that this patient goes to the hospitalist service in ICU since he is conscious and otherwise hemodynamically stable. Awaiting for the hospitalist to call back. Critical Care Narrative Aggregate critical care time was 30 minutes. Time to perform other separately billable procedures was not included in the critical care time. My time did not include minutes spent treating any other patients simultaneously or on activities that did not directly contribute to the patient's treatment. The services I provided to this patient were to treat and/or prevent clinically significant deterioration that could result in: GI bleed, INR 3, vitamin K I provided critical care services requiring my management, as noted below: Chart data review, documentation time, medication orders and management, vital sign assessments/reviewing monitor data, ordering and reviewing lab tests, ordering and interpreting/reviewing x-rays and diagnostic studies, care of the patient and discussion of the patient with the admitting physicians. Procedures EKG Prior to Arrival: No HemaPrompt Point of Care Internal Pos. & Neg. Controls: Passed Fecal Specimen Occult Blood: Positive Comment Gross blood. Diagnosis Primary Impression: Rectal bleed Additional Impression: Supratherapeutic INR Flor Lofton MD Nov 02, 2016 13:10
[2016-11-02] MEDS ORDERED: SODIUM CHLORIDE 0.9% FLUSH 5 ML FLUSH IVF PRN (13:30)
[2016-11-02] MEDS ORDERED: SODIUM CHLORID 0.9% 500 ML INJ 500 ML IV ONE (13:30)
[2016-11-02 13:49] LABS: BASOPHIL % 0.2 % (0.0-2.0); HEMO FLAGS DIFF FINAL; LYMPH % 5.2 % (9.0-44.0); LYMPHOCYTE # 0.5 TH/MM3 (1.0-4.8); MEAN CELL VOLUME 88.9 FL (80.0-100.0); MEAN CORPUSCULAR HEMOGLOBIN 28.6 PG (27.0-34.0); MEAN CORPUSCULAR HGB CONC 32.2 % (32.0-36.0); NEUT % 90.6 % (16.0-70.0); PLATELET COUNT 112 TH/MM3 (150-450); RED BLOOD COUNT 3.82 MIL/MM3 (4.50-5.90); RED CELL DISTRIBUTION WIDTH 19.9 % (11.6-17.2); WHITE BLOOD COUNT 9.9 TH/MM3 (4.0-11.0)
[2016-11-02 13:59] LABS: PROTHROMBIN TIME - PATIENT 35.2 SEC (9.8-11.6)
[2016-11-02] MEDS ORDERED: THERTAB17 PO (14:01)
[2016-11-02] MEDS ORDERED: PRED20 PO (14:01)
[2016-11-02] MEDS ORDERED: CALC1TAB42 PO (14:05)
[2016-11-02 14:10] LABS: BICARBONATE 33.3 MEQ/L (21.0-32.0); POTASSIUM 4.4 MEQ/L (3.5-5.1)
[2016-11-02] MEDS ORDERED: PHYTONADIONE 10 MG/ML VIAL SQ ONE (14:15)
--- NOTE | 2016-11-02 14:54 | PD.CONS ---
HPI History of Present Illness This is a 76 year old male who came to the ER for lower GI bleeding. He reports that he had the urge to move his bowels this morning and when he did, he passed a large amount of red bloody stool. He was not having any nausea, vomiting, abdominal pain, or melena. There were no aggravating or alleviating factors. He is currently staying at a rehab center and was brought to the ER for evaluation for bleeding. Here in the ER, he had another episode consisting of a large bloody stool with maroon colored blood. He denies any prior hx of GI bleeding. He does have GERD, but states this is well controlled with omeprazole. He also reports decreased appetite and has lost about 30 lbs over the past 2-3 months. He does attribute some of this to the fact that he has been in the hospital and rehab centers and does not care for the food. He does have atrial fibrillation and a hx of LLE DVT about 10-20 years ago. He is on chronic anticoagulation with Coumadin and last had this yesterday. His INR is 3.0 and he just received a dose of Vitamin K 10mg sq x 1. He does have a hx of diverticulosis and diverticulitis with perforation and had a diverting colostomy 2 years ago and later had this reversed in March [address] Sylvester. He cannot recall when his last colonoscopy was. PFSH Past Medical History Chronic abdominal pain Anticoagulation use Anxiety Arteriosclerosis of coronary artery Atrial fibrillation Back pain Cardiomyopathy Cholelithiasis Compression fracture of thoracic vertebra Constipation COPD Depression Diverticulosis/Diverticulitis HTN Hyperlipidemia Idiopathic thrombocytopenia purpura Macrocytosis Obstructive sleep apnea CAD/AZ Paroxysmal ventricular tachycardia Esophagitis Past Surgical History Colon resection with colostomy for diverticulitis with colon perforation and take down diverting colostomy AICD placement, battery replacement 2016 Pilonidal cyst resection Colonoscopy Coded Allergies: Quinidex Extentab (Verified Allergy, Severe, PLATELETT COUNT DECREASES/ BLINDNESS, 11/02/16) Niacin (Verified Allergy, Intermediate, RASH/ITCHING, 11/02/16) MRI PRECAUTION (Verified Adverse Reaction, Severe, NON MRI COMPATIBLE DEFIB 10/22/15 LRS, 11/02/16) *MDRO Multi-Drug Resistant Organism (Verified Adverse Reaction, Unknown, ESBL, 11/02/16) ESBL E. coli (abd. 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 coli (urine) - 03/08/16, 09/28/16, 10/19/16 Medications Allergies Coded Allergies Type Severity Reaction Last Updated Verified Quinidex Extentab Allergy Severe PLATELETT COUNT DECREASES/BLINDNESS 11/02/16 Yes Niacin Allergy Intermediate RASH/ITCHING 11/02/16 Yes MRI PRECAUTION Adverse Reaction Severe NON MRI COMPATIBLE DEFIB 10/22/15 LRS 11/02/16 Yes *MDRO Multi-Drug Resistant Organism Adverse Reaction Unknown ESBL 11/02/16 Yes Active Scripts Medications Dose Route/Sig Days Date Category Calcium 500+D (Calcium Carbonate-Cholecalciferol) 500-200 Mg-Unit Tab 1 Tab PO BID 11/02/16 Reported Prednisone 20 Mg Tab 20 Mg PO DAILY 11/02/16 Reported Thera-M (Multiple Vitamins W/ Minerals) 1 Tab 1 Tab PO DAILY 11/02/16 Reported Hydrocodone-Acetaminophen 5-300 Mg Tab 1 Tab PO Q6HR PRN 10/24/16 Rx Warfarin 2 Mg Tab 2 Mg PO DAILY 10/24/16 Rx Duoneb (Ipratropium-Albuterol Neb) 0.5-2.5 Mg/3 Ml Neb 1 Nebule INH Q6HR NEB PRN 10/06/16 Rx Clonazepam 0.5 Mg Tab 0.5 Mg PO BID 10/06/16 Rx Coreg (Carvedilol) 12.5 Mg Tab 6.25 Mg PO BID 30 10/06/16 Rx Symbicort Inh (Budesonide/Formoterol Fumarate) 160-4.5 Mcg/Act Aero 2 Puff INH Q12HR 10/06/16 Rx Ventolin Hfa 18 GM Inh (Albuterol Sulfate) 90 Mcg/Act Aer 2 Puff INH Q4HR PRN 09/28/16 Reported Tamsulosin (Tamsulosin HCl) 0.4 Mg Cap 0.4 Mg PO HS 09/28/16 Reported Omeprazole 20 Mg Tab 20 Mg PO DAILY 09/28/16 Reported Klor-Con M20 (Potassium Chloride Microencaps) 20 Meq Tab 20 Meq PO Q12HR 09/28/16 Reported Furosemide 40 Mg Tab 40 Mg PO DAILY 09/28/16 Reported Escitalopram (Escitalopram Oxalate) 10 Mg Tab 10 Mg PO DAILY 09/28/16 Reported Atorvastatin (Atorvastatin Calcium) 10 Mg Tab 10 Mg PO HS 09/28/16 Reported Amiodarone (Amiodarone HCl) 200 Mg Tab 200 Mg PO DAILY 09/28/16 Reported Family History Father had lung cancer. Mother had dm but lived until she was 100 years old. Social History Tobacco use 2-3 cigarettes per day for many years. No etoh use. No illicit drug use Review of Systems Constitutional: COMPLAINS OF: Fatigue, Weight loss (30 lb weight loss in the past 2-3 months), Change in appetite, DENIES: Fever, Chills Respiratory: COMPLAINS OF: Cough, Wheezing, Shortness of breath Cardiovascular: DENIES: Chest pain Gastrointestinal: COMPLAINS OF: Bloody stools, Diarrhea, Anorexia, Heartburn, DENIES: Abdominal pain, Black stools, Nausea, Vomiting, Swelling of Abdomen, Hematemesis Musculoskeletal: DENIES: Joint pain Integumentary: DENIES: Abnormal pigmentation Hematologic/lymphatic: DENIES: Bruising Neurologic: DENIES: Headache Psychiatric: DENIES: Anxiety, Confusion GI Exam Vitals I&O Vital Signs Date Time Temp Pulse Resp B/P Pulse Ox O2 Delivery O2 Flow Rate FiO2 11/02/16 13:37 97 Nasal Cannula 3 11/02/16 13:32 98.8 59 22 119/59 93 Laboratory Test 11/02/16 13:30 White Blood Count 9.9 TH/MM3 Red Blood Count 3.82 MIL/MM3 Hemoglobin 10.9 GM/DL Hematocrit 34.0 % Mean Corpuscular Volume 88.9 FL Mean Corpuscular Hemoglobin 28.6 PG Mean Corpuscular Hemoglobin 32.2 % Concent Red Cell Distribution Width 19.9 % Platelet Count 112 TH/MM3 Mean Platelet Volume 8.8 FL Neutrophils (%) (Auto) 90.6 % Lymphocytes (%) (Auto) 5.2 % Monocytes (%) (Auto) 4.0 % Eosinophils (%) (Auto) 0.0 % Basophils (%) (Auto) 0.2 % Neutrophils # (Auto) 9.0 TH/MM3 Lymphocytes # (Auto) 0.5 TH/MM3 Monocytes # (Auto) 0.4 TH/MM3 Eosinophils # (Auto) 0.0 TH/MM3 Basophils # (Auto) 0.0 TH/MM3 CBC Comment DIFF FINAL Differential Comment Prothrombin Time 35.2 SEC Prothromb Time International 3.0 RATIO Ratio Sodium Level 139 MEQ/L Potassium Level 4.4 MEQ/L Chloride Level 100 MEQ/L Carbon Dioxide Level 33.3 MEQ/L Anion Gap 6 MEQ/L Blood Urea Nitrogen 16 MG/DL Creatinine 0.87 MG/DL Estimat Glomerular Filtration 86 ML/MIN Rate Random Glucose 129 MG/DL Calcium Level 8.3 MG/DL Blood Type A POSITIVE Antibody Screen NEGATIVE Physical Examination HEENT: Normocephalic; atraumatic; no jaundice. CHEST: Resp. even/shallow, mildly labored. Crackles. Wheezing. CARDIAC: Irregular ABDOMEN: Soft, obese, nondistended, nontender; no hepatosplenomegaly; bowel sounds are present in all four quadrants. Multiple scars EXTREMITIES: Mild edema. SKIN: Normal; no rash; no jaundice. HEARING AIDE TECHNICIAN: No focal deficits; alert and oriented times three. Assessment and Plan Plan ASSESSMENT: - GIB, Lower. Pt had episode of bloody stool with maroon blood this am and again in the ER. His HH 10.9/34.0 and INR 3.0. S/P Vitamin K 10mg sq x 1. - Anemia, acute blood loss. 10.9/34.0. - GERD. PPI - Abnormal weight loss. 30 lb weight loss over the past 2-3 months. - Chronic anticoagulation for Atrial Fibrillation with INR of 3.0. S/P Vitamin K 10mg sq x 1. - Chronic thrombocytopenia, hx of ITP. Plt 112,000. - Respiratory Insufficiency with hx of CHF, COPD, TERRENCE. Pt with crackles, wheezing. Per primary - CHF, Cardiomyopathy, atrial fibrillation, CAD, Hyperlipidemia. Per primary - COPD, TERRENCE. - Hx Diverticulitis with perforation, requiring diverting colostomy 2014 with later reversal in March 2015. PLAN: - Clear liquids - Protonix 40mg IV BID - Monitor HH q6h - Transfuse as necessary - CBC, CMP, PT/INR in am - Will plan for for EGD/Colonoscopy on Wednesday after INR < 2.0 and respiratory status optimized - Supportive care - Further recommendations to follow based on results of above - Pt seen and examined by Dr. Crooks and myself and this note is written on his behalf Marly Schmitz Nov 02, 2016 14:54
[2016-11-02] MEDS ORDERED: SODIUM CHLOR 0.9% 1000 ML INJ 1,000 ML IV SCH (15:27)
[2016-11-02] MEDS: DOCUSATE SODIUM 100 MG CAP PO SCH (15:30)
[2016-11-02] MEDS ORDERED: ACETAMINOPHEN 325 MG TAB PO PRN (15:30)
[2016-11-02] MEDS ORDERED: ONDANSETRON HCL 4 MG/2 ML VIAL IVP PRN (15:30)
[2016-11-02] MEDS ORDERED: METOCLOPRAMIDE HCL 10 MG/2 ML VIAL IV PUSH PRN (15:30)
[2016-11-02] MEDS ORDERED: NALOXONE HCL 0.4 MG/ML AMP IV PRN (15:30)
[2016-11-02] MEDS ORDERED: BISACODYL 10 MG SUPP PR PRN (15:30)
--- NOTE | 2016-11-02 15:44 | HHI.HP ---
[facility] Service [facility] Primary Care Physician Srniivas Mehta MD Admission Diagnosis rectal bleed, supratherapeutic INR Diagnoses: (1) Acute blood loss anemia Diagnosis: Principal (2) Supratherapeutic INR Diagnosis: Principal (3) Rectal bleed Diagnosis: Principal (4) Warfarin-induced coagulopathy Diagnosis: Principal (5) COPD exacerbation Diagnosis: Secondary (6) Congestive heart failure Diagnosis: Principal Travel History International Travel<30 Days: No Contact w/Intl Traveler <30 Da: No Traveled to Known Affected Are: No History of Present Illness This is a pleasant 76 y/o Male who came to Emergency room sent by his Long-Term with Rectal bleed started this morning at 11:30 AM, patient was found stable, no distress on admission, requires a lot of assistance he is on Warfarin for Atrial Fibrillation with RVR, as we know the patient has Chronic Warfarin intake, Atrial Fibrillation, Thrombocytopenia, Anxiety disorder, CHF, Depression , CAD, status post Pacemaker placement, COPD, GERD, Diverticulitis status post Colonoscopy, Hiatal hernia, Chronic Low back pain. TIA, seen in the room in the presence of his Partner Mr. Rl Escobar he has also Obesity, Multiple ecchymotic lesions on four extremities, as per nurse continue active GI Bleed will need Hemoglobin and hematocrit every six hours. Past Family Social History Past Medical History Chronic abdominal pain Anticoagulation use Anxiety Arteriosclerosis of coronary artery Atrial fibrillation Back pain Cardiomyopathy Cholelithiasis Compression fracture of thoracic vertebra Constipation COPD Depression Diverticulosis/Diverticulitis HTN Hyperlipidemia Idiopathic thrombocytopenia purpura Macrocytosis Obstructive sleep apnea CAD/AZ Paroxysmal ventricular tachycardia Esophagitis Past Surgical History Colon resection with colostomy for diverticulitis with colon perforation and take down diverting colostomy AICD placement, battery replacement 2016 Pilonidal cyst resection Colonoscopy Reported Medications Reported Meds & Active Scripts Active Hydrocodone-Acetaminophen 5-300 Mg Tab 1 Tab PO Q6HR PRN Warfarin 2 Mg Tab 2 Mg PO DAILY Duoneb (Ipratropium-Albuterol Neb) 0.5-2.5 Mg/3 Ml Neb 1 Nebule INH Q6HR NEB PRN Clonazepam 0.5 Mg Tab 0.5 Mg PO BID Coreg (Carvedilol) 12.5 Mg Tab 6.25 Mg PO BID 30 Days Symbicort Inh (Budesonide/Formoterol Fumarate) 160-4.5 Mcg/Act Aero 2 Puff INH Q12HR Reported Calcium 500+D (Calcium Carbonate-Cholecalciferol) 500-200 Mg-Unit Tab 1 Tab PO BID Prednisone 20 Mg Tab 20 Mg PO DAILY Thera-M (Multiple Vitamins W/ Minerals) 1 Tab 1 Tab PO DAILY Ventolin Hfa 18 GM Inh (Albuterol Sulfate) 90 Mcg/Act Aer 2 Puff INH Q4HR PRN Tamsulosin (Tamsulosin HCl) 0.4 Mg Cap 0.4 Mg PO HS Omeprazole 20 Mg Tab 20 Mg PO DAILY Klor-Con M20 (Potassium Chloride Microencaps) 20 Meq Tab 20 Meq PO Q12HR Furosemide 40 Mg Tab 40 Mg PO DAILY Escitalopram (Escitalopram Oxalate) 10 Mg Tab 10 Mg PO DAILY Atorvastatin (Atorvastatin Calcium) 10 Mg Tab 10 Mg PO HS Amiodarone (Amiodarone HCl) 200 Mg Tab 200 Mg PO DAILY Allergies: Coded Allergies: Quinidex Extentab (Verified Allergy, Severe, PLATELETT COUNT DECREASES/ BLINDNESS, 11/02/16) Niacin (Verified Allergy, Intermediate, RASH/ITCHING, 11/02/16) MRI PRECAUTION (Verified Adverse Reaction, Severe, NON MRI COMPATIBLE DEFIB 10/22/15 LRS, 11/02/16) *MDRO Multi-Drug Resistant Organism (Verified Adverse Reaction, Unknown, ESBL, 11/02/16) ESBL E. coli (abd. 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 coli (urine) - 03/08/16, 09/28/16, 10/19/16 Active Ordered Medications Current Medications Medications (Trade) Dose Ordered Sig/Yasmeen Route Start Time Stop Time Status Last Admin (NS Flush) 2 ml UNSCH PRN IVF 11/02/16 13:30 (Cordarone) 200 mg DAILY PO 11/03/16 09:00 (Lipitor) 10 mg HS PO 11/02/16 21:00 (Coreg) 6.25 mg BID PO 11/02/16 21:00 (KlonoPIN) 0.5 mg BID PO 3/6/17 21:00 (Lexapro) 10 mg DAILY PO 11/03/16 09:00 (Lasix) 40 mg DAILY PO 11/03/16 09:00 (KCl) 20 meq Q12HR PO 11/02/16 21:00 (Deltasone) 20 mg DAILY PO 11/03/16 09:00 (Flomax) 0.4 mg HS PO 11/02/16 21:00 Calcium/Vitamin D 500 mg 500 mg BID PO 11/02/16 21:00 (NS 1000 ml Inj) 1,000 ml @ 100 mls/hr Q10H IV 11/02/16 15:27 (NS Flush) 2 ml UNSCH PRN FLUSH 11/02/16 15:30 (NS Flush) 2 ml BID FLUSH 11/02/16 21:00 (Tylenol) 650 mg Q4H PRN PO 11/02/16 15:30 (Zofran Inj) 4 mg Q6H PRN IVP 11/02/16 15:30 (Reglan Inj) 5 mg Q6H PRN IV PUSH 11/02/16 15:30 (Dulcolax Supp) 10 mg DAILY PRN IA 11/02/16 15:30 (Colace) 100 mg Q12H PO 11/02/16 15:30 (Narcan Inj) 0.4 mg UNSCH PRN IV 11/02/16 15:30 Family History Father had lung cancer. Mother had dm but lived until she was 100 years old. Social History Tobacco use 2-3 cigarettes per day for many years. No etoh use. No illicit drug use Physical Exam Vital Signs Vital Signs Date Time Temp Pulse Resp B/P Pulse Ox O2 Delivery O2 Flow Rate FiO2 11/02/16 13:37 97 Nasal Cannula 3 11/02/16 13:32 98.8 59 22 119/59 93 Physical Exam GENERAL: This is a well-nourished, well-developed patient, in no apparent distress. SKIN: No rashes, ecchymoses or lesions. Cool and dry. HEAD: Atraumatic. Normocephalic. No temporal or scalp tenderness. EYES: Pupils equal round and reactive. Extraocular motions intact. No scleral icterus. No injection or drainage. ENT: Nose without bleeding, purulent drainage or septal hematoma. Throat without erythema, tonsillar hypertrophy or exudate. Uvula midline. Airway patent. NECK: Trachea midline. No JVD or lymphadenopathy. Supple, nontender, no meningeal signs. CARDIOVASCULAR: Regular rate and rhythm without murmurs, gallops, or rubs. RESPIRATORY: Clear to auscultation. Breath sounds equal bilaterally. No wheezes , rales, or rhonchi. GASTROINTESTINAL: Abdomen soft, non-tender, nondistended. No hepato-splenomegaly , or palpable masses. No guarding. MUSCULOSKELETAL: Extremities without clubbing, cyanosis, or edema. No joint tenderness, effusion, or edema noted. No calf tenderness. Negative Homans sign bilaterally. NEUROLOGICAL: Awake and alert. Cranial nerves II through XII intact. Motor and sensory grossly within normal limits. Five out of 5 muscle strength in all muscle groups. Normal speech. Laboratory Laboratory Tests Test 11/02/16 13:30 White Blood Count 9.9 Red Blood Count 3.82 Hemoglobin 10.9 Hematocrit 34.0 Mean Corpuscular Volume 88.9 Mean Corpuscular Hemoglobin 28.6 Mean Corpuscular Hemoglobin 32.2 Concent Red Cell Distribution Width 19.9 Platelet Count 112 Mean Platelet Volume 8.8 Neutrophils (%) (Auto) 90.6 Lymphocytes (%) (Auto) 5.2 Monocytes (%) (Auto) 4.0 Eosinophils (%) (Auto) 0.0 Basophils (%) (Auto) 0.2 Neutrophils # (Auto) 9.0 Lymphocytes # (Auto) 0.5 Monocytes # (Auto) 0.4 Eosinophils # (Auto) 0.0 Basophils # (Auto) 0.0 CBC Comment DIFF FINAL Differential Comment Prothrombin Time 35.2 Prothromb Time International 3.0 Ratio Sodium Level 139 Potassium Level 4.4 Chloride Level 100 Carbon Dioxide Level 33.3 Anion Gap 6 Blood Urea Nitrogen 16 Creatinine 0.87 Estimat Glomerular Filtration 86 Rate Random Glucose 129 Calcium Level 8.3 Blood Type A POSITIVE Antibody Screen NEGATIVE Result Diagram: 11/02/16 1330 11/02/16 1330 Assessment and Plan Problem List: (1) Acute blood loss anemia ICD Code: D62 Status: Acute (2) Coronary artery disease ICD Code: I25.10 Status: Chronic (3) Hypertension ICD Code: I10 Status: Chronic (4) Atrial fibrillation ICD Code: I48.91 Status: Chronic (5) COPD (chronic obstructive pulmonary disease) ICD Code: J44.9 Status: Acute (6) CHF (congestive heart failure) ICD Code: I50.9 Status: Acute (7) Renal insufficiency ICD Code: N28.9 Status: Acute (8) Warfarin-induced coagulopathy ICD Code: D69.9 Status: Acute (9) Rectal bleed ICD Code: K62.5 Status: Acute (10) Supratherapeutic INR ICD Code: R79.1 Status: Acute Assessment and Plan 1. Acute GI bleed in a patient with chronic Warfarin intake, he is been consulted to GI specialist and discussed with CHILD AND FAMILY SERVICES SPECIALIST Miss Schmitz, will be scoped in two days at this time, having some respiratory difficulty probable related to CHF exacerbation, COPD asked for CXR and BNP 2. Chronic Warfarin intake received Vitamin K for INR 3 3. Atrial Fibrillation rate controlled but his Warfarin on hold due to acute GI bleed, he has Pacemaker in place 4. Thrombocytopenia stable 5. Anxiety Disorder/Depression stable will continue Home medicines 6. COPD to continue Bronchodilator Mucolytic and incentive spirometry 7. CHF asked for BNP and CXR, also asked for Echocardiogram 8. GERD on PPIs/Hiatal Hernia 9. TIA seven months ago 10. Obesity strongly recommended diet and exercise as outpatient will need PT for discharge to Rehab 11. Ruptured Diverticulum with status post Colostomy 10/13/14 DVT prophylaxis with SCDs contraindicated at this time anticoagulation GI prophylaxis with Protonix Echocardiogram H and H complete laboratory BNP CXR Lasix 40 mg once [place]avez Cath placement Code Status DNR the patient and his Partner confirm to me he is DNR and ask me to place him as DNR. Discussed Condition With Patient, GI CHILD AND FAMILY SERVICES SPECIALIST, Nurse in the room, ER specialist, patient's partner. Physician Certification 2 Midnight Certification Type: Admission for Inpatient Services Order for Inpatient Services The services are ordered in accordance with Medicare regulations or non- Medicare payer requirements, as applicable. In the case of services not specified as inpatient-only, they are appropriately provided as inpatient services in accordance with the 2-midnight benchmark. Estimated LOS (days): 3 days is the estimated time the patient will need to remain in the hospital, assuming treatment plan goals are met and no additional complications. Post-Hospital Plan: SNF Parvez Darden MD Nov 02, 2016 15:44
[2016-11-02 17:12] LABS: C. DIFF EPI 027 PRESUMPTIVE NEGATIVE (NEGATIVE); C. DIFF TOXIN PCR NEGATIVE (NEGATIVE)
[2016-11-02] MEDS ORDERED: FUROSEMIDE 40 MG/4 ML VIAL IV PUSH ONE (17:15)
--- NOTE | 2016-11-02 17:33 | RADRPT ---
EXAM DATE/TIME: 11/02/2016 17:14 [facility] COMPARISON: CHEST SINGLE AP, October 24, 2016, 6:23. INDICATIONS : Shortness of breath. MEDICAL HISTORY : Hypertension. Chronic obstructive pulmonary disease. A-Fib SURGICAL HISTORY : Pacemaker. Colostomy. ENCOUNTER: Initial ACUITY: 1 day PAIN SCORE: 0/10 LOCATION: Bilateral chest FINDINGS: The cardiac silhouette is enlarged in transverse diameter. A defibrillator device is in place via a l eft sided approach. There is left lower lobe atelectasis versus pneumonia. A small left sided effusio n is present. The right lung is free of acute parenchymal opacity. CONCLUSION: 1. Cardiomegaly 2. Left lower lobe atelectasis versus pneumonia. Small left effusion Rudy Rodriguez MD on November 02, 2016 at 17:31 Board Certified Radiologist. This report was verified electronically.
[2016-11-02] MEDS: PANTOPRAZOLE SODIUM 40 MG VIAL IV PUSH SCH (18:14)
[2016-11-02] MEDS: RESP: ALBUTEROL 2.5 MG/IPRATROPIUM 0.5 MG NEB (SCH) NEB ×2 (18:38→23:30)
[2016-11-02] MEDS: POTASSIUM CHLORIDE 20 MEQ CONTROLLED RELEASE TAB PO SCH (21:04)
[2016-11-02] MEDS: guaiFENesin E.R. 600 MG TAB PO SCH (21:04)
[2016-11-02] MEDS: CARVEDILOL 6.25 MG TAB PO SCH (21:04)
[2016-11-02] MEDS: clonazePAM 0.5 MG TAB PO SCH (21:04)
[2016-11-02] MEDS: CALCIUM/VITAMIN D 250 MG/125 U TAB PO SCH (21:04)
[2016-11-02] MEDS: TAMSULOSIN HCL 0.4 MG CAP PO SCH (21:04)
[2016-11-02] MEDS: ATORVASTATIN 10 MG TAB PO SCH (21:04)
[2016-11-02 21:05] LABS: HEMATOCRIT 27.2 % (39.0-51.0)
[2016-11-02] MEDS: SODIUM CHLORIDE 0.9% FLUSH 5 ML FLUSH FLUSH SCH (21:05)
[2016-11-02 22:17] LABS: FREE T4 1.54 NG/DL (0.76-1.46)
[2016-11-02 22:32] LABS: HEMOGLOBIN A1a 2.3 %; HEMOGLOBIN Ao 82.3 %; HEMOGLOBIN LA1C 2.3 %; HEMOGLOBIN P3 6.1 %
[2016-11-03] VITALS (15 sets, daily range): BP systolic 67–131; BP diastolic 43–72; PULSE 64–85; RESP 20–28; TEMP 97.3–98.3; O2SAT 93–97
[2016-11-03] MEDS ORDERED: FUROSEMIDE 20 MG/2 ML VIAL IV PUSH ONE (00:30)
--- NOTE | 2016-11-03 01:07 | RADRPT ---
EXAM DATE/TIME: 11/03/2016 00:46 [facility] COMPARISON: CHEST SINGLE AP, November 02, 2016, 17:14. INDICATIONS : Shortness of breath. MEDICAL HISTORY : Hypertension. Chronic obstructive pulmonary disease. A-Fib. SURGICAL HISTORY : Pacemaker. Colostomy. ENCOUNTER: Subsequent ACUITY: 2 days PAIN SCORE: Non-responsive. LOCATION: Bilateral chest FINDINGS: A single view of the chest demonstrates persistent left basilar consolidation/effusion. Right lung is clear. Heart size is prominent but well compensated. Left subclavian bipolar pacer is radiographical ly intact. Mild dextroscoliosis of the thoracolumbar spine with associated degenerative changes. Osse ous structures are otherwise intact. CONCLUSION: 1. Stable appearance of the chest with persistent left basilar consolidation/effusion. 2. Right lung remains clear. 3. Compensated cardiomegaly. Duarte Gupta MD on November 03, 2016 at 1:03 Board Certified Radiologist. This report was verified electronically.
[2016-11-03] MEDS ORDERED: PEG (High)/E-LYTE SOLN 4000 ML BTL PO SCH (01:15)
[2016-11-03] MEDS ORDERED: NOREPINEPHRINE-DEXTROSE DRIP 250 ML IV SCH ×2 (03:15→04:15)
[2016-11-03] MEDS ORDERED: TERBUTALINE INJ 1 MG/ML AMP SQ PRN ×2 (03:15→04:15)
[2016-11-03] MEDS: RESP: ALBUTEROL 2.5 MG/IPRATROPIUM 0.5 MG NEB (SCH) NEB ×6 (03:21→23:44)
[2016-11-03] MEDS: DOCUSATE SODIUM 100 MG CAP PO SCH ×2 (03:30→15:30)
--- NOTE | 2016-11-03 04:16 | PD.CONS ---
[facility] Service Critical Care Medicine Consult Requested By Hospitalist Service [place] [facility] [place] Srinivas Mehta MD Review of Systems ROS +SOB, no chest pain. Cold. Past Family Social History Allergies: Coded Allergies: Quinidex Extentab (Verified Allergy, Severe, PLATELETT COUNT DECREASES/ BLINDNESS, 11/02/16) Niacin (Verified Allergy, Intermediate, RASH/ITCHING, 11/02/16) MRI PRECAUTION (Verified Adverse Reaction, Severe, NON MRI COMPATIBLE DEFIB 10/22/15 LRS, 11/02/16) *MDRO Multi-Drug Resistant Organism (Verified Adverse Reaction, Unknown, ESBL, 11/02/16) ESBL E. coli (abd. 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 coli (urine) - 03/08/16, 09/28/16, 10/19/16 Past Medical History PFSH Past Medical History Chronic abdominal pain Anticoagulation use Anxiety Arteriosclerosis of coronary artery Atrial fibrillation Back pain Cardiomyopathy Cholelithiasis Compression fracture of thoracic vertebra Constipation COPD Depression Diverticulosis/Diverticulitis HTN Hyperlipidemia Idiopathic thrombocytopenia purpura Macrocytosis Obstructive sleep apnea CAD/LA Paroxysmal ventricular tachycardia Esophagitis Past Surgical History Colon resection with colostomy for diverticulitis with colon perforation and take down diverting colostomy AICD placement, battery replacement 2015 Pilonidal cyst resection Colonoscopy Coded Allergies: Quinidex Extentab (Verified Allergy, Severe, PLATELETT COUNT DECREASES/ BLINDNESS, 11/02/16) Niacin (Verified Allergy, Intermediate, RASH/ITCHING, 11/02/16) MRI PRECAUTION (Verified Adverse Reaction, Severe, NON MRI COMPATIBLE DEFIB 10/22/15 LRS, 11/02/16) *MDRO Multi-Drug Resistant Organism (Verified Adverse Reaction, Unknown, ESBL, 11/02/16) ESBL E. coli (abd. 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 coli (urine) - 03/08/16, 09/28/16, 10/19/16 Medications Allergies Coded Allergies Type Severity Reaction Last Updated Verified Quinidex Extentab Allergy Severe PLATELETT COUNT DECREASES/BLINDNESS 11/02/16 Yes Niacin Allergy Intermediate RASH/ITCHING 11/02/16 Yes MRI PRECAUTION Adverse Reaction Severe NON MRI COMPATIBLE DEFIB 10/22/15 LRS 11/02/16 Yes *MDRO Multi-Drug Resistant Organism Adverse Reaction Unknown ESBL 11/02/16 Yes Physical Exam Vital Signs Vital Signs Date Time Temp Pulse Resp B/P Pulse Ox O2 Delivery O2 Flow Rate FiO2 11/03/16 02:00 80 11/03/16 00:00 85 11/03/16 00:00 97.5 85 24 67/50 97 11/02/16 23:33 95 Nasal Cannula 1.50 11/02/16 22:00 78 11/02/16 20:00 97.8 81 20 90/54 99 11/02/16 20:00 81 11/02/16 18:40 96 Nasal Cannula 2.00 11/02/16 18:00 75 11/02/16 17:51 75 11/02/16 17:49 97.7 79 24 102/58 98 11/02/16 16:12 70 19 120/59 97 Nasal Cannula 3 11/02/16 14:00 22 Nasal Cannula 3 11/02/16 13:37 97 Nasal Cannula 3 11/02/16 13:32 98.8 59 22 119/59 93 Physical Exam P 85, BP 67/50, R 22, T 97, Sats 97% Head: Lips cyanotic. Nack: Supple, airway widely patent Lungs: Clear, no wheezes or crackles. Prolonged exp phase. Heart: Paced. RRR, neck veins flat. Abdomen: Soft, nondistended, nontender. BS active. Extremities: Cool, poorly perfused. Neuro: O X 3, lethargic. Moves 4 limbs. Laboratory Laboratory Tests Test 11/02/16 11/02/16 11/02/16 11/02/16 13:30 14:00 15:00 20:53 White Blood Count 9.9 Red Blood Count 3.82 Hemoglobin 10.9 8.7 Hematocrit 34.0 27.2 Mean Corpuscular Volume 88.9 Mean Corpuscular Hemoglobin 28.6 Mean Corpuscular Hemoglobin 32.2 Concent Red Cell Distribution Width 19.9 Platelet Count 112 Mean Platelet Volume 8.8 Neutrophils (%) (Auto) 90.6 Lymphocytes (%) (Auto) 5.2 Monocytes (%) (Auto) 4.0 Eosinophils (%) (Auto) 0.0 Basophils (%) (Auto) 0.2 Neutrophils # (Auto) 9.0 Lymphocytes # (Auto) 0.5 Monocytes # (Auto) 0.4 Eosinophils # (Auto) 0.0 Basophils # (Auto) 0.0 CBC Comment DIFF FINAL Differential Comment Prothrombin Time 35.2 Prothromb Time International 3.0 Ratio Sodium Level 139 Potassium Level 4.4 Chloride Level 100 Carbon Dioxide Level 33.3 Anion Gap 6 Blood Urea Nitrogen 16 Creatinine 0.87 Estimat Glomerular Filtration 86 Rate Random Glucose 129 Hemoglobin A1c 6.0 Calcium Level 8.3 Free Thyroxine 1.54 Thyroid Stimulating Hormone 0.486 3rd Gen Blood Type A POSITIVE Antibody Screen NEGATIVE B-Type Natriuretic Peptide 152 Stool C. difficile Toxin (PCR) NEGATIVE Stl C. difficile Toxin PRESUMPTIVE Epiderm 027 NEGATIVE Test 11/03/16 01:57 Blood Type A POSITIVE Crossmatch Leukocyte-Reduced Red Blood Cells Blood Bank Comment Result Diagram: 11/02/16205211/02/161329 Assessment and Plan Assessment and Plan Assessment: 1. Major GI bleed, probably lower. 2. Hypovolemic Shock. 3. Coagulopathy, coumadin. 4. COPD, not exacerbated. 5. Acute blood loss anemia. Plan: 1. Insertion CVL. 2. ScVO2, CVP. 3. Serial Hgb. 4. Protonix 40 bid. 5. FFP 2 units now. 6. No chemical DVT px. 7. Hold SCDs until peripheral perfusion improves. 8. Notify GI service. 9. Repeat coagulation profile. Overall impression: He is critically ill with hypovolemic shock and poor peripheral perfusion. Resuscitation underway with blood products and anticoagulation reversal. Follow acid-base balance closely. Critical Care 40 mins aside from procedures. Tin Alejandra MD Nov 03, 2016 04:16
--- NOTE | 2016-11-03 04:18 | PD.PROCEDR ---
Procedure Note Procedure DX: Hypovolemic Shock, GI bleed OP: Insertion right subclavian central venous line ([id number]) Procedure: Right chest prepped and draped. Right subclavian vein cannulated and wire easily advanced. Catheter passed over wire to 18 cm. Lumens aspirated and flushed. Dressing applied. CXR with line up north in right internal jugular vein. This position is suitable for acute resuscitation and ready to use. Tin Alejandra MD Nov 03, 2016 04:18
[2016-11-03] MEDS ORDERED: CALCIUM CHLORIDE INJ 2 GM in SODIUM CHLORIDE 0.9% INJ 100 ML IV ONE (04:30)
[2016-11-03 04:38] LABS: BLOOD GAS CARBOXYHEMOGLOBIN 2.2 % (0-4); BLOOD GAS HCO3 27 mmol/L (22-26); BLOOD GAS METHEMOGLOBIN 1.3 % (0-2); BLOOD GAS O2 HGB SATURATION 90 % (90-100); BLOOD GAS OXYGEN CONTENT 12.8 Vol % (12.0-20.0); BLOOD GAS PCO2 39 mmHg (38-42); BLOOD GAS PO2 66 mmHg (61-120); BLOOD GAS TOTAL HGB 10.1 G/DL (12.0-16.0); CRITICAL VALUE NO; DRAW SITE RT RADIAL; FIO2 28 %; LITER FLOW 2 L/M; NUMBER OF ARTERIAL PUNCTURES 1; OXYGEN DEVICE NASAL CANNULA; STAT YES; TEMP CORR TO 98.6; ULNAR PULSE PRESENT
--- NOTE | 2016-11-03 05:42 | RADRPT ---
EXAM DATE/TIME: 11/03/2016 04:32 [place] COMPARISON: CHEST SINGLE AP, November 03, 2016, 0:46. INDICATIONS : Central line placement. MEDICAL HISTORY : Hypertension. Chronic obstructive pulmonary disease. SURGICAL HISTORY : Pacemaker. ENCOUNTER: Subsequent ACUITY: 2 days PAIN SCORE: Non-responsive. LOCATION: Bilateral chest FINDINGS: A single view of the chest demonstrates persistent left basilar consolidation/effusion. New interstit ial prominence in the right perihilar distribution suggesting some developing interstitial edema. Hea rt size is prominent. Left subclavian bipolar pacer is radiographically intact. Interval placement of a right subclavian central venous catheter with the tip actually extending cephalad into the ipsilat eral jugular vein. No pneumothorax CONCLUSION: 1. Interval placement of right subclavian central venous catheter with the tip projecting cephalad in to the ipsilateral internal jugular vein. 2. Stable left basilar consolidation/effusion. 3. Cardiomegaly with some developing interstitial edema predominantly right perihilar distribution mondragon ggesting some degree of volume overload/vascular congestion. Duarte Gupta MD on November 03, 2016 at 5:38 Board Certified Radiologist. This report was verified electronically.
[2016-11-03 06:16] LABS: INTERNATIONAL NORMALIZED RATIO 2.1 RATIO; PROTHROMBIN TIME - PATIENT 23.7 SEC (9.8-11.6)
[2016-11-03 06:30] LABS: BICARBONATE 30.9 MEQ/L (21.0-32.0); INDIRECT BILIRUBIN 1.6 MG/DL (0.0-0.8); POTASSIUM 3.8 MEQ/L (3.5-5.1); TOTAL BILIRUBIN ADULT 2.1 MG/DL (0.2-1.0)
[2016-11-03] MEDS ORDERED: FUROSEMIDE 40 MG TAB PO SCH (09:00)
[2016-11-03] MEDS ORDERED: AMIODARONE 200 MG TAB PO SCH (09:00)
--- NOTE | 2016-11-03 10:09 | HHI.GIFU ---
Subjective Remarks Resting in bed. Mildly labored breathing. No abdominal pain. Had one bloody stool overnight. Objective Vitals I&O Vital Signs Date Time Temp Pulse Resp B/P Pulse Ox O2 Delivery O2 Flow Rate FiO2 11/03/16 08:17 95 Nasal Cannula 1.50 11/03/16 06:00 68 11/03/16 04:00 97.3 72 20 88/43 97 11/03/16 04:00 72 11/03/16 02:00 80 11/03/16 00:00 85 11/03/16 00:00 97.5 85 24 67/50 97 11/02/16 23:33 95 Nasal Cannula 1.50 11/02/16 22:00 78 11/02/16 20:00 97.8 81 20 90/54 99 11/02/16 20:00 81 11/02/16 18:40 96 Nasal Cannula 2.00 11/02/16 18:00 75 11/02/16 17:51 75 11/02/16 17:49 97.7 79 24 102/58 98 11/02/16 16:12 70 19 120/59 97 Nasal Cannula 3 11/02/16 14:00 22 Nasal Cannula 3 11/02/16 13:37 97 Nasal Cannula 3 11/02/16 13:32 98.8 59 22 119/59 93 I/O 11/02/16 11/02/16 11/02/16 11/03/16 11/03/16 11/03/16 07:00 15:00 23:00 07:00 15:00 23:00 Intake Total 105 ml 775 ml Output Total 1 ml 1400 ml Balance 104 ml -625 ml Intake Oral 100 ml IV Total 5 ml 275 ml Packed Cells 500 ml Output Urine Total 1400 ml Stool Total 1 ml # Voids 1 # Bowel Movements 1 3 2 Laboratory Laboratory Tests Test 11/02/16 11/02/16 11/02/16 11/02/16 13:30 14:00 15:00 20:53 White Blood Count 9.9 Red Blood Count 3.82 Hemoglobin 10.9 8.7 Hematocrit 34.0 27.2 Mean Corpuscular Volume 88.9 Mean Corpuscular Hemoglobin 28.6 Mean Corpuscular Hemoglobin 32.2 Concent Red Cell Distribution Width 19.9 Platelet Count 112 Mean Platelet Volume 8.8 Neutrophils (%) (Auto) 90.6 Lymphocytes (%) (Auto) 5.2 Monocytes (%) (Auto) 4.0 Eosinophils (%) (Auto) 0.0 Basophils (%) (Auto) 0.2 Neutrophils # (Auto) 9.0 Lymphocytes # (Auto) 0.5 Monocytes # (Auto) 0.4 Eosinophils # (Auto) 0.0 Basophils # (Auto) 0.0 CBC Comment DIFF FINAL Differential Comment Prothrombin Time 35.2 Prothromb Time International 3.0 Ratio Sodium Level 139 Potassium Level 4.4 Chloride Level 100 Carbon Dioxide Level 33.3 Anion Gap 6 Blood Urea Nitrogen 16 Creatinine 0.87 Estimat Glomerular Filtration 86 Rate Random Glucose 129 Hemoglobin A1c 6.0 Calcium Level 8.3 Free Thyroxine 1.54 Thyroid Stimulating Hormone 0.486 3rd Gen Blood Type A POSITIVE Antibody Screen NEGATIVE B-Type Natriuretic Peptide 152 Stool C. difficile Toxin (PCR) NEGATIVE Stl C. difficile Toxin PRESUMPTIVE Epiderm 027 NEGATIVE Test 11/03/16 11/03/16 11/03/16 11/03/16 01:57 04:05 04:23 05:54 Blood Type A POSITIVE Crossmatch Leukocyte-Reduced Red Blood Cells Blood Bank Comment Blood Gas Puncture Site RT RADIAL Blood Gas Patient Temperature 98.6 Blood Gas HCO3 27 Blood Gas Base Excess 3.0 Blood Gas Oxygen Saturation 90 Arterial Blood pH 7.45 Arterial Blood Partial 39 Pressure CO2 Arterial Blood Partial 66 Pressure O2 Arterial Blood Oxygen Content 12.8 Arterial Blood 2.2 Carboxyhemoglobin Arterial Blood Methemoglobin 1.3 Blood Gas Hemoglobin 10.1 Oxygen Delivery Device NASAL CANNULA Blood Gas Liter Flow 2 Blood Gas Inspired Oxygen 28 Prothrombin Time 23.7 Prothromb Time International 2.1 Ratio Sodium Level 139 Potassium Level 3.8 Chloride Level 99 Carbon Dioxide Level 30.9 Anion Gap 9 Blood Urea Nitrogen 22 Creatinine 1.05 Estimat Glomerular Filtration 69 Rate Random Glucose 117 Lactic Acid Level 1.0 Calcium Level 8.1 Total Bilirubin 2.1 Direct Bilirubin 0.5 Indirect Bilirubin 1.6 Aspartate Amino Transf 20 (AST/SGOT) Alanine Aminotransferase 48 (ALT/SGPT) Alkaline Phosphatase 72 Total Protein 4.9 Albumin 2.1 Imaging Last Impressions Chest X-Ray 11/03/16 0000 Signed Impressions: Service Date/Time: Thursday, November 03, 2016 04:32 - CONCLUSION: 1. Interval placement of right subclavian central venous catheter with the tip projecting cephalad into the ipsilateral internal jugular vein. 2. Stable left basilar consolidation/effusion. 3. Cardiomegaly with some developing interstitial edema predominantly right perihilar distribution suggesting some degree of volume overload/vascular congestion. Duarte Gupta MD Physical Exam HEENT: Normocephalic; atraumatic; no jaundice. CHEST: Resp. shallow/even, crackles, expiratory wheezing. SOB when speaking CARDIAC: RRR ABDOMEN: Soft, obese, nondistended, nontender; no hepatosplenomegaly; bowel sounds are present in all four quadrants. EXTREMITIES: Generalized edema. SKIN: Normal; no rash; no jaundice. CLERICAL GRADER: No focal deficits; Lethargic and oriented times three. Assessment and Plan Plan ASSESSMENT: - GIB, Lower. Pt had 2 episodes of bloody stool with maroon blood yesterday and another one overnight. On admission, his HH was 10.9/34.0 and INR 3.0. S/P Vitamin K 10mg sq x 1. S/P 2 units PRBC. 2 units FFP. HH last night 8.7/27.2. Today's labs are pending, because he was still getting blood products this am. Unfortunately, he is not stable for any procedures. He has underlying CHF, CMP, COPD and has significant expiratory wheezing, crackles , and has sob while speaking. Will plan for egd/colonoscopy once his respiratory status is optimized. - Anemia, acute blood loss. HH last night 8.7/27.2. S/P 2 units PRBC. Repeat labs pending. - GERD. PPI - Abnormal weight loss. 30 lb weight loss over the past 2-3 months. - Chronic anticoagulation for Atrial Fibrillation with INR of 3.0. S/P Vitamin K 10mg sq x 1. S/P 2 units FFP. INR 2.1. - Chronic thrombocytopenia, hx of ITP. Todays labs are pending. - Respiratory Insufficiency with hx of CHF, COPD, TERRENCE. Pt with sob while speaking, still with significant wheezing, crackles. Per primary - CHF, Cardiomyopathy, atrial fibrillation, CAD, Hyperlipidemia. Per primary - COPD, TERRENCE. - Hx Diverticulitis with perforation, requiring diverting colostomy 2014 with later reversal in March 2015. PLAN: - Clear liquids - Protonix 40mg IV BID - Monitor HH q6h - Transfuse as necessary - CBC, CMP, PT/INR in am - Supportive care - Will plan for for EGD/Colonoscopy once respiratory status optimized - Further recommendations to follow based on results of above - Pt seen and examined by Dr. Crooks and myself and this note is written on his behalf Marly Schmitz Nov 03, 2016 10:09
[2016-11-03] MEDS: guaiFENesin E.R. 600 MG TAB PO SCH ×2 (10:53→21:51)
[2016-11-03] MEDS: POTASSIUM CHLORIDE 20 MEQ CONTROLLED RELEASE TAB PO SCH ×2 (10:53→21:51)
[2016-11-03] MEDS: CALCIUM/VITAMIN D 250 MG/125 U TAB PO SCH ×2 (10:54→21:51)
[2016-11-03] MEDS: clonazePAM 0.5 MG TAB PO SCH ×2 (10:54→21:52)
[2016-11-03] MEDS: predniSONE 20 MG TAB PO SCH (10:56)
[2016-11-03] MEDS: ESCITALOPRAM OXALATE 10 MG TAB PO SCH (10:56)
[2016-11-03] MEDS: SODIUM CHLORIDE 0.9% FLUSH 5 ML FLUSH FLUSH SCH ×2 (10:57→21:52)
[2016-11-03 13:36] LABS: AUTOMATED NEUTROPHIL # 10.7 TH/MM3 (1.8-7.7); BASOPHIL # 0.1 TH/MM3 (0-0.2); BASOPHIL % 0.6 % (0.0-2.0); EOSINOPHIL % 0.1 % (0.0-4.0); HEMATOCRIT 26.5 % (39.0-51.0); HEMO FLAGS DIFF FINAL; LYMPH % 7.9 % (9.0-44.0); MEAN CELL VOLUME 86.4 FL (80.0-100.0); MEAN CORPUSCULAR HEMOGLOBIN 29.2 PG (27.0-34.0); MEAN CORPUSCULAR HGB CONC 33.8 % (32.0-36.0); MONO % 7.7 % (0.0-8.0); NEUT % 83.7 % (16.0-70.0); PLATELET COUNT 107 TH/MM3 (150-450); RED BLOOD COUNT 3.07 MIL/MM3 (4.50-5.90); RED CELL DISTRIBUTION WIDTH 17.4 % (11.6-17.2); WHITE BLOOD COUNT 12.7 TH/MM3 (4.0-11.0)
[2016-11-03] MEDS: PANTOPRAZOLE SODIUM 40 MG VIAL IV PUSH SCH (15:55)
[2016-11-03] MEDS: ATORVASTATIN 10 MG TAB PO SCH (21:52)
[2016-11-04] VITALS (15 sets, daily range): BP systolic 118–129; BP diastolic 58–63; PULSE 64–75; RESP 25–29; TEMP 97.6–98.3; O2SAT 94–97
[2016-11-04] MEDS: DOCUSATE SODIUM 100 MG CAP PO SCH ×2 (03:30→17:15)
[2016-11-04] MEDS: RESP: ALBUTEROL 2.5 MG/IPRATROPIUM 0.5 MG NEB (SCH) NEB ×6 (03:39→23:32)
[2016-11-04] MEDS: PANTOPRAZOLE SODIUM 40 MG VIAL IV PUSH SCH ×2 (04:04→17:15)
[2016-11-04 05:49] LABS: AUTOMATED NEUTROPHIL # 7.1 TH/MM3 (1.8-7.7); BASOPHIL % 0.4 % (0.0-2.0); EOSINOPHIL % 0.2 % (0.0-4.0); HEMATOCRIT 22.9 % (39.0-51.0); HEMO FLAGS DIFF FINAL; LYMPHOCYTE # 2.1 TH/MM3 (1.0-4.8); MEAN CELL VOLUME 86.4 FL (80.0-100.0); MEAN CORPUSCULAR HEMOGLOBIN 29.4 PG (27.0-34.0); MONO % 10.9 % (0.0-8.0); NEUT % 68.5 % (16.0-70.0); PLATELET COUNT 104 TH/MM3 (150-450); RED BLOOD COUNT 2.66 MIL/MM3 (4.50-5.90); RED CELL DISTRIBUTION WIDTH 17.7 % (11.6-17.2); WHITE BLOOD COUNT 10.3 TH/MM3 (4.0-11.0)
[2016-11-04 06:08] LABS: INTERNATIONAL NORMALIZED RATIO 1.1 RATIO; PROTHROMBIN TIME - PATIENT 12.2 SEC (9.8-11.6)
[2016-11-04 06:20] LABS: ALKALINE PHOSPHATASE 59 U/L (45-117); ALT (GPT) 40 U/L (12-78); ANION GAP 5 MEQ/L (5-15); AST (GOT) 19 U/L (15-37); BICARBONATE 33.8 MEQ/L (21.0-32.0); BLOOD UREA NITROGEN 17 MG/DL (7-18); CHLORIDE 101 MEQ/L (98-107); GLOMERULAR FILTRATION RATE 86 ML/MIN (>89); POTASSIUM 3.6 MEQ/L (3.5-5.1); SODIUM (NA) 140 MEQ/L (136-145)
[2016-11-04] MEDS: guaiFENesin E.R. 600 MG TAB PO SCH ×2 (08:31→20:51)
[2016-11-04] MEDS: CALCIUM/VITAMIN D 250 MG/125 U TAB PO SCH ×2 (08:31→20:52)
[2016-11-04] MEDS: clonazePAM 0.5 MG TAB PO SCH ×2 (08:31→20:51)
[2016-11-04] MEDS: predniSONE 20 MG TAB PO SCH (08:31)
[2016-11-04] MEDS: ESCITALOPRAM OXALATE 10 MG TAB PO SCH (08:31)
[2016-11-04] MEDS: POTASSIUM CHLORIDE 20 MEQ CONTROLLED RELEASE TAB PO SCH ×2 (08:31→20:52)
[2016-11-04] MEDS: SODIUM CHLORIDE 0.9% FLUSH 5 ML FLUSH FLUSH SCH ×2 (08:31→20:51)
[2016-11-04 10:49] LABS: HEMATOCRIT 23.7 % (39.0-51.0)
[2016-11-04 10:52] LABS: REVIEW FLAG FINAL
--- NOTE | 2016-11-04 14:11 | HHI.CCPN ---
Subjective Remarks/Hospital Course 76-year-old gentleman who came to Emergency room sent by his [facility] with Rectal bleed that started in the morning prior to admission at 11:30 AM. The patient has Chronic Warfarin intake, Atrial Fibrillation, Thrombocytopenia, Anxiety disorder, CHF, Depression, CAD, status post Pacemaker placement, COPD, GERD, Diverticulitis status post Colonoscopy, Hiatal hernia, Chronic Low back pain. TIA, Obesity, Multiple ecchymotic lesions on four extremities, and as per chart continues GI Bleed. The patient became hypotensive in the emergency room and was transferred to intensive care unit on low-dose of Levophed Objective Vital Signs Date Time Temp Pulse Resp B/P Pulse Ox O2 Delivery O2 Flow Rate FiO2 11/04/16 12:00 97.7 70 28 129/59 94 11/04/16 09:15 Nasal Cannula 2.00 Intake and Output 11/03/16 11/03/16 11/04/16 08:00 16:00 00:00 Intake Total 775 ml 1058 ml 448 ml Output Total 1400 ml 1000 ml 350 ml Balance -625 ml 58 ml 98 ml Result Diagram: 11/04/16 1043 11/04/16 0527 Other Results Vital Signs Date Time Temp Pulse Resp B/P Pulse Ox O2 Delivery O2 Flow Rate FiO2 11/04/16 12:00 97.7 70 28 129/59 94 11/04/16 09:15 Nasal Cannula 2.00 Objective Remarks Vital Signs Date Time Temp Pulse Resp B/P Pulse Ox O2 Delivery O2 Flow Rate FiO2 11/04/16 12:00 97.7 70 28 129/59 94 11/04/16 09:15 Nasal Cannula 2.00 Head: Lips cyanotic. Nack: Supple, airway widely patent Lungs: Clear, no wheezes or crackles. Prolonged exp phase. Heart: Paced. RRR, neck veins flat. Abdomen: Soft, nondistended, nontender. BS active. Extremities: Cool, poorly perfused. Neuro: O X 3, lethargic. Moves 4 limbs. A/P Assessment and Plan Assessment: 1. Major GI bleed, probably lower. 2. Hypovolemic Shock. 3. Coagulopathy, coumadin. 4. COPD, not exacerbated. 5. Acute blood loss anemia. Plan: 1. Insertion CVL. 2. ScVO2, CVP. 3. Continue Serial Hgb. 4. Protonix 40 bid per GI. 5. FFP 2 units yesterday. 6. No chemical DVT px. 7. Hold SCDs until peripheral perfusion improves. 8. GI consult appreciated 9. No intervention per GI until respiratory improves He continues to be critically ill with hypovolemic shock and poor peripheral perfusion. Resuscitation underway with blood products and anticoagulation reversal. Follow acid-base balance closely. Critical Care: The total critical care time was 35 minutes. Time to perform other separately billable procedures was not included in the critical care time. Kanu Espinoza MD Nov 04, 2016 14:11
--- NOTE | 2016-11-04 15:07 | HHI.GIFU ---
Subjective Remarks Resting in bed. States breathing better today. Nurse reports one small blood clot and then a smear of blood. No abdominal pain. Objective Vitals I&O Vital Signs Date Time Temp Pulse Resp B/P Pulse Ox O2 Delivery O2 Flow Rate FiO2 11/04/16 12:00 97.7 70 28 129/59 94 11/04/16 12:00 70 11/04/16 10:00 75 11/04/16 09:15 94 Nasal Cannula 2.00 11/04/16 08:00 97.6 68 26 126/58 97 11/04/16 08:00 68 11/04/16 06:00 65 11/04/16 04:00 98.0 67 28 129/63 97 11/04/16 04:00 67 11/04/16 02:00 67 11/04/16 00:00 98.3 64 25 128/59 96 11/04/16 00:00 64 11/03/16 22:00 64 11/03/16 20:40 96 Nasal Cannula 1.00 11/03/16 20:00 69 11/03/16 20:00 97.7 69 28 107/53 95 11/03/16 18:00 73 11/03/16 17:15 93 Nasal Cannula 1.50 11/03/16 16:00 67 11/03/16 16:00 98.3 67 20 121/54 96 I/O 11/03/16 11/03/16 11/03/16 11/04/16 11/04/16 11/04/16 07:00 15:00 23:00 07:00 15:00 23:00 Intake Total 775 ml 1058 ml 448 ml 317 ml Output Total 1400 ml 1000 ml 350 ml 150 ml Balance -625 ml 58 ml 98 ml 167 ml Intake Oral 300 ml 200 ml IV Total 275 ml 400 ml 148 ml 117 ml Packed Cells 500 ml 658 ml Output Urine Total 1400 ml 1000 ml 350 ml 150 ml # Bowel Movements 2 1 0 Laboratory Laboratory Tests Test 11/04/16 11/04/16 05:27 10:43 White Blood Count 10.3 Red Blood Count 2.66 Hemoglobin 7.8 8.1 Hematocrit 22.9 23.7 Mean Corpuscular Volume 86.4 Mean Corpuscular Hemoglobin 29.4 Mean Corpuscular Hemoglobin 34.0 Concent Red Cell Distribution Width 17.7 Platelet Count 104 Mean Platelet Volume 8.4 Neutrophils (%) (Auto) 68.5 Lymphocytes (%) (Auto) 20.0 Monocytes (%) (Auto) 10.9 Eosinophils (%) (Auto) 0.2 Basophils (%) (Auto) 0.4 Neutrophils # (Auto) 7.1 Lymphocytes # (Auto) 2.1 Monocytes # (Auto) 1.1 Eosinophils # (Auto) 0.0 Basophils # (Auto) 0.0 CBC Comment DIFF FINAL Differential Comment Prothrombin Time 12.2 Prothromb Time International 1.1 Ratio Sodium Level 140 Potassium Level 3.6 Chloride Level 101 Carbon Dioxide Level 33.8 Anion Gap 5 Blood Urea Nitrogen 17 Creatinine 0.87 Estimat Glomerular Filtration 86 Rate Random Glucose 95 Calcium Level 8.3 Total Bilirubin 1.0 Aspartate Amino Transf 19 (AST/SGOT) Alanine Aminotransferase 40 (ALT/SGPT) Alkaline Phosphatase 59 Total Protein 4.7 Albumin 2.2 Imaging Last Impressions Chest X-Ray 11/03/16 0000 Signed Impressions: Service Date/Time: Thursday, November 03, 2016 04:32 - CONCLUSION: 1. Interval placement of right subclavian central venous catheter with the tip projecting cephalad into the ipsilateral internal jugular vein. 2. Stable left basilar consolidation/effusion. 3. Cardiomegaly with some developing interstitial edema predominantly right perihilar distribution suggesting some degree of volume overload/vascular congestion. Duarte Gupta MD Physical Exam HEENT: Normocephalic; atraumatic; no jaundice. CHEST: Resp. shallow/even, xpiratory wheezing. CARDIAC: RRR ABDOMEN: Soft, obese, nondistended, nontender; no hepatosplenomegaly; bowel sounds are present in all four quadrants. EXTREMITIES: Generalized edema. SKIN: Normal; no rash; no jaundice. REFERENCE ARCHIVIST: No focal deficits; Lethargic and oriented times three. Assessment and Plan Plan ASSESSMENT: - GIB, Lower. Pt had 2 episodes of bloody stool with maroon blood yesterday and another one overnight. On admission, his HH was 10.9/34.0 and INR 3.0. S/P Vitamin K 10mg sq x 1. S/P 2 units PRBC. 2 units FFP. INR 1.1. HH 8.1/23.7. - Anemia, acute blood loss. S/P 2 units PRBC. HH 8.1/23.7. - GERD. PPI - Abnormal weight loss. 30 lb weight loss over the past 2-3 months. - Chronic anticoagulation for Atrial Fibrillation with INR of 3.0. S/P Vitamin K 10mg sq x 1. S/P 2 units FFP. INR 1.1. - Chronic thrombocytopenia, hx of ITP. Plt 104 - Respiratory Insufficiency with hx of CHF, COPD, TERRENCE. Pt with sob while speaking, still with significant wheezing, crackles. Per primary - CHF, Cardiomyopathy, atrial fibrillation, CAD, Hyperlipidemia. Per primary - COPD, TERRENCE. - Hx Diverticulitis with perforation, requiring diverting colostomy 2014 with later reversal in March 2015. PLAN: - Plan for egd/colonoscopy in am if stable - Obtain consents - Clear liquids - NPO after MN - Golytely prep - Protonix 40mg IV BID - Monitor HH q6h - Transfuse as necessary - CBC, CMP, PT/INR in am - Supportive care - Further recommendations to follow based on results of above - Pt seen and examined by Dr. Crooks and myself and this note is written on his behalf Marly Schmitz Nov 04, 2016 15:07
[2016-11-04] MEDS ORDERED: PEG (High)/E-LYTE SOLN 4000 ML BTL PO ONE (15:15)
[2016-11-04] MEDS: ATORVASTATIN 10 MG TAB PO SCH (20:51)
[2016-11-05] VITALS (15 sets, daily range): BP systolic 105–146; BP diastolic 55–67; PULSE 65–87; RESP 18–27; TEMP 97.8–98.4; O2SAT 93–100
[2016-11-05] MEDS: DOCUSATE SODIUM 100 MG CAP PO SCH ×2 (03:30→15:30)
[2016-11-05] MEDS: RESP: ALBUTEROL 2.5 MG/IPRATROPIUM 0.5 MG NEB (SCH) NEB ×6 (03:46→23:41)
[2016-11-05] MEDS: PANTOPRAZOLE SODIUM 40 MG VIAL IV PUSH SCH ×2 (05:04→20:37)
[2016-11-05] MEDS: SODIUM CHLORIDE 0.9% FLUSH 5 ML FLUSH FLUSH PRN (05:04)
[2016-11-05 05:11] LABS: BLOOD GAS BASE EXCESS 5.3 mmol/L (-2-2); BLOOD GAS CARBOXYHEMOGLOBIN 2.3 % (0-4); BLOOD GAS HCO3 29 mmol/L (22-26); BLOOD GAS METHEMOGLOBIN 1.2 % (0-2); BLOOD GAS O2 HGB SATURATION 88 % (90-100); BLOOD GAS OXYGEN CONTENT 8.8 Vol % (12.0-20.0); BLOOD GAS PCO2 42 mmHg (38-42); BLOOD GAS PO2 62 mmHg (61-120); CRITICAL VALUE YES; OXYGEN DEVICE NASAL CANNULA; TEMP CORR TO 98.6
[2016-11-05 05:12] LABS: DRAW SITE RT RADIAL; FIO2 24 %; LITER FLOW 1.5 L/M; NUMBER OF ARTERIAL PUNCTURES 1; STAT NO; ULNAR PULSE PRESENT
[2016-11-05 06:26] LABS: AUTOMATED NEUTROPHIL # 4.9 TH/MM3 (1.8-7.7); BASOPHIL % 0.5 % (0.0-2.0); EOSINOPHIL % 0.5 % (0.0-4.0); LYMPH % 25.1 % (9.0-44.0); LYMPHOCYTE # 1.9 TH/MM3 (1.0-4.8); MEAN CELL VOLUME 88.8 FL (80.0-100.0); MEAN CORPUSCULAR HEMOGLOBIN 29.5 PG (27.0-34.0); MEAN CORPUSCULAR HGB CONC 33.2 % (32.0-36.0); MONO % 9.9 % (0.0-8.0); PLATELET COUNT 83 TH/MM3 (150-450); RED BLOOD COUNT 2.33 MIL/MM3 (4.50-5.90); RED CELL DISTRIBUTION WIDTH 17.7 % (11.6-17.2); WHITE BLOOD COUNT 7.6 TH/MM3 (4.0-11.0)
[2016-11-05 06:28] LABS: INTERNATIONAL NORMALIZED RATIO 1.1 RATIO; PROTHROMBIN TIME - PATIENT 12.5 SEC (9.8-11.6)
[2016-11-05 06:31] LABS: HEMO FLAGS AUTO DIFF
[2016-11-05 06:34] LABS: HEMATOCRIT 20.7 % (39.0-51.0)
[2016-11-05 06:51] LABS: ANION GAP 10 MEQ/L (5-15); AST (GOT) 24 U/L (15-37); BICARBONATE 31.3 MEQ/L (21.0-32.0); BLOOD UREA NITROGEN 13 MG/DL (7-18); CHLORIDE 103 MEQ/L (98-107); GLOMERULAR FILTRATION RATE 100 ML/MIN (>89); MAGNESIUM 1.6 MG/DL (1.5-2.5); POTASSIUM 3.2 MEQ/L (3.5-5.1); SODIUM (NA) 144 MEQ/L (136-145)
[2016-11-05 06:54] LABS: ALKALINE PHOSPHATASE 62 U/L (45-117); ALT (GPT) 36 U/L (12-78); TOTAL BILIRUBIN ADULT 0.9 MG/DL (0.2-1.0)
[2016-11-05] MEDS ORDERED: FUROSEMIDE 20 MG/2 ML VIAL IV PRN (08:15)
[2016-11-05 09:05] LABS: PLATELET ESTIMATE SMEAR LOW (NORMAL); PLATELET MORPHOLOGY NORMAL (NORMAL); SCAN/DIFF AUTO DIFF CONFIRMED
[2016-11-05 09:06] LABS: OVALOCYTES 1+ (NORMAL)
[2016-11-05] MEDS: guaiFENesin E.R. 600 MG TAB PO SCH ×2 (09:21→20:38)
[2016-11-05] MEDS: ESCITALOPRAM OXALATE 10 MG TAB PO SCH (09:21)
[2016-11-05] MEDS: CALCIUM/VITAMIN D 250 MG/125 U TAB PO SCH ×2 (09:21→20:38)
[2016-11-05] MEDS: predniSONE 20 MG TAB PO SCH (09:21)
[2016-11-05] MEDS: POTASSIUM CHLORIDE 20 MEQ CONTROLLED RELEASE TAB PO SCH ×2 (09:21→20:38)
[2016-11-05] MEDS: clonazePAM 0.5 MG TAB PO SCH ×2 (09:22→20:38)
[2016-11-05] MEDS ORDERED: MIDAZOLAM HCL 2 MG/2 ML VIAL IV ONE (12:00)
[2016-11-05] MEDS ORDERED: PROPOFOL 200 MG/20 ML AMP IV ONE (13:55)
--- NOTE | 2016-11-05 14:02 | GIPROC ---
[facility] [address] [facility]. [facility] [place], [address] EGD PROCEDURE REPORT EXAM DATE: 11/05/2016 PATIENT NAME: Bradford Benjamin MR #: [id number] BIRTHDATE: 1940 ATTENDING: Janice Crooks MD ORDER #: [id number] SEM MANAGER: Kev Monroy and Reena Lion STATUS: bedside INDICATIONS: The patient is a 76 yr old male here for an EGD due to anemia and hematochezia PROCEDURE PERFORMED: EGD w/ biopsy MEDICATIONS: Per Anesthesia and None. TOPICAL ANESTHETIC: Cetacaine [place] CONSENT: The patient understands the risks and benefits of the procedure and understands that these risks include, but are not limited to: sedation, allergic reaction, infection, perforation and/or bleeding. Alternative means of evaluation and treatment include, among others: physical exam, x-rays, and/or surgical intervention. The patient elects to proceed with this endoscopic procedure. medical equipment was checked for proper function. Hand hygiene and appropriate measures for infection prevention was taken. After the risks, benefits and alternatives of the procedure were thoroughly explained, Informed consent was verified, confirmed and timeout was successfully executed by the treatment team. The patient was anesthetized with topical anesthesia and the [id number] (Pedi C) and [id number] endoscope was introduced through the mouth and advanced to the second portion of the duodenum. Retroflexed views revealed no abnormalities The gastroscope was then slowly withdrawn and removed. Gastritis Bx from antrum. The endoscopy was otherwise normal ADVERSE EVENTS: There were no complications. IMPRESSIONS: 1. Gastritis Bx from antrum 2. Normal endoscopy otherwise 3. Retroflexed views revealed no abnormalities RECOMMENDATIONS: 1. await biopsy results. Biopsy results will not be ready for 7-10 days. If you don't hear from us in two weeks, call our office for biopsy results. 2. anti-reflux regimen 3. continue PPI 4. avoid NSAIDS PATIENT CONDITION: stable DISPOSITION: Inpatient REPEAT EXAM: Return as needed for EGD Janice Crooks MD eSigned: Janice Crooks MD 11/05/2016 2:02 PM cc: CPT CODES: 46467 Upper gastrointestinal endoscopy including esophagus, stomach, and either the duodenum and/or jejunum as appropriate; with biopsy, single or multiple ICD CODES: K92.1 Melena The ICD and CPT codes recommended by this software are interpretations from the data that the clinical staff has captured with the software. The verification of the translation of this report to the ICD and CPT codes and modifiers is the sole responsibility of the health care institution and practicing physician where this report was generated. [employer] will not be held responsible for the validity of the ICD and CPT codes included on this report. AMA assumes no liability for data contained or not contained herein. CPT is a registered trademark of the [employer]. PATIENT NAME: Bradford Benjamin MR#: [id number]
--- NOTE | 2016-11-05 14:25 | GIPROC ---
[facility] [address] [facility]. [facility], [address] COLONOSCOPY PROCEDURE REPORT EXAM DATE: 11/05/2016 PATIENT NAME: Bradford Benjamin MR #: [id number] BIRTHDATE: 1940 ENDOSCOPIST: Janice Crooks MD ORDER #: [id number] COUNSELLORS: Reena Lion RN STATUS: bedside INDICATIONS: The patient is a 76 yr old male here for a colonoscopy due to hematochezia PROCEDURE PERFORMED: Colonoscopy with polypectomy MEDICATIONS: Per Anesthesia and None. PREP QUALITY: fair ESTIMATED BLOOD LOSS: None CONSENT: The patient understands the risks and benefits of the procedure and understands that these risks include, but are not limited to: sedation, allergic reaction, infection, perforation and/or bleeding. Alternative means of evaluation and treatment include, among others: physical exam, x-rays, and/or surgical intervention. The patient elects to proceed with this endoscopic procedure. medical equipment was checked for proper function. Hand hygiene and appropriate measures for infection prevention was taken. After the risks, benefits and alternatives of the procedure were thoroughly explained, Informed consent was verified, confirmed and timeout was successfully executed by the treatment team. A digital exam revealed no abnormalities of the rectum The Pentax [id number] endoscope was introduced through the anus and advanced to the cecum, which was identified by both the appendix and ileocecal valve. The instrument was then slowly withdrawn as the colon was fully examined. COLON FINDINGS: Few diverticolosis in the sigmoid. Normal surgical anastamosis. No active bleed. Small polyp in the ascending colon removed by snare. The colon mucosa was otherwise normal. Retroflexed views revealed internal hemorrhoids and Retroflexed views revealed small internal hemorrhoids The scope was then completely withdrawn from the patient and the procedure terminated. ADVERSE EVENTS: There were no complications. IMPRESSIONS: 1. Few diverticolosis in the sigmoid 2. Normal surgical anastamosis 3. No active bleed 4. Small polyp in the ascending colon removed by snare 5. The colon mucosa was otherwise normal 6. Retroflexed views revealed internal hemorrhoids 7. Retroflexed views revealed small internal hemorrhoids 8. Revealed no abnormalities of the rectum RECOMMENDATIONS: 1. await biopsy results. Biopsy results will not be ready for 7-10 days. If you don't hear from us in two weeks, call our office for results. 2. high fiber diet 3. carrdiac diet RECALL: Return 3 years Colonoscopy Janice Crooks MD eSigned: Janice Crooks MD 11/05/2016 2:25 PM cc: CPT CODES: ICD CODES: K56.2 Volvulus Z98.0 Intestinal bypass and anastomosis status K92.1 Melena K64.8 Other hemorrhoids The ICD and CPT codes recommended by this software are interpretations from the data that the clinical staff has captured with the software. The verification of the translation of this report to the ICD and CPT codes and modifiers is the sole responsibility of the health care institution and practicing physician where this report was generated. [employer] will not be held responsible for the validity of the ICD and CPT codes included on this report. AMA assumes no liability for data contained or not contained herein. CPT is a registered trademark of the [employer]. PATIENT NAME: Bradford Benjamin MR#: [id number]
[2016-11-05] MEDS ORDERED: KETAMINE HCL 500 MG/5 ML VIAL ONE (14:33)
[2016-11-05] MEDS ORDERED: DO NOT ADM ANY ANTICOAGULANT DRUGS XX PRN (15:45)
--- NOTE | 2016-11-05 17:27 | HHI.CCPN ---
Subjective Remarks/Hospital Course 76-year-old gentleman who came to Emergency room sent by his [facility] with Rectal bleed that started in the morning prior to admission at 11:30 AM. The patient has Chronic Warfarin intake, Atrial Fibrillation, Thrombocytopenia, Anxiety disorder, CHF, Depression, CAD, status post Pacemaker placement, COPD, GERD, Diverticulitis status post Colonoscopy, Hiatal hernia, Chronic Low back pain. TIA, Obesity, Multiple ecchymotic lesions on four extremities, and as per chart continues GI Bleed. The patient became hypotensive in the emergency room and was transferred to intensive care unit on low-dose of Levophed Objective Vital Signs Date Time Temp Pulse Resp B/P Pulse Ox O2 Delivery O2 Flow Rate FiO2 11/05/16 16:00 98.3 83 22 146/67 94 11/05/16 15:00 Nasal Cannula 2 Intake and Output 11/04/16 11/04/16 11/05/16 08:00 16:00 00:00 Intake Total 317 ml 449 ml 500 ml Output Total 150 ml 200 ml Balance 167 ml 249 ml 500 ml Result Diagram: 11/05/16 0546 11/05/16 0546 Other Results Laboratory Tests Test 11/05/16 04:58 Blood Gas Puncture Site RT RADIAL Blood Gas Patient Temperature 98.6 Blood Gas HCO3 29 mmol/L (22-26) Blood Gas Base Excess 5.3 mmol/L (-2-2) Blood Gas Oxygen Saturation 88 % (90-100) Arterial Blood pH 7.46 (7.380-7.420) Arterial Blood Partial 42 mmHg (38-42) Pressure CO2 Arterial Blood Partial 62 mmHg Pressure O2 (61-120) Arterial Blood Oxygen Content 8.8 Vol % (12.0-20.0) Arterial Blood 2.3 % (0-4) Carboxyhemoglobin Arterial Blood Methemoglobin 1.2 % (0-2) Blood Gas Hemoglobin 7.0 G/DL (12.0-16.0) Oxygen Delivery Device NASAL CANNULA Blood Gas Liter Flow 1.5 L/M Blood Gas Inspired Oxygen 24 % Objective Remarks Vital Signs Date Time Temp Pulse Resp B/P Pulse Ox O2 Delivery O2 Flow Rate FiO2 11/04/16 12:00 97.7 70 28 129/59 94 11/04/16 09:15 Nasal Cannula 2.00 Head: Lips cyanotic. Nack: Supple, airway widely patent Lungs: Clear, no wheezes or crackles. Prolonged exp phase. Heart: Paced. RRR, neck veins flat. Abdomen: Soft, nondistended, nontender. BS active. Extremities: Cool, poorly perfused. Neuro: O X 3, lethargic. Moves 4 limbs. A/P Assessment and Plan Assessment: 1. Major GI bleed, probably lower. 2. Hypovolemic Shock. 3. Coagulopathy, coumadin. 4. COPD, not exacerbated. 5. Acute blood loss anemia. Plan: No active bleeding on endoscopy Hemodynamically stable off pressors Comfortable on nasal cannula Continue Protonix 40 twice a day per GI Clear liquid diet Transfer to hospitalist a.m. Patient has been hemodynamically stable not on pressors comfortable on nasal cannula. Critical care medicine will sign off. Thank you very much for allowing us to participate in care of this pleasant gentleman. Critical Care: The total critical care time was 35 minutes. Time to perform other separately billable procedures was not included in the critical care time. Kanu Espinoza MD Nov 05, 2016 17:27
[2016-11-05] MEDS: ATORVASTATIN 10 MG TAB PO SCH (20:38)
[2016-11-05] MEDS: SODIUM CHLORIDE 0.9% FLUSH 5 ML FLUSH FLUSH SCH (20:38)
[2016-11-06] VITALS (14 sets, daily range): BP systolic 111–140; BP diastolic 58–65; PULSE 72–110; RESP 22–26; TEMP 97.9–98; O2SAT 94–96
[2016-11-06] MEDS ORDERED: FUROSEMIDE 20 MG/2 ML VIAL IV PUSH ONE (00:15)
[2016-11-06] MEDS: DOCUSATE SODIUM 100 MG CAP PO SCH (03:30)
[2016-11-06] MEDS: RESP: ALBUTEROL 2.5 MG/IPRATROPIUM 0.5 MG NEB (SCH) NEB ×4 (03:56→16:20)
[2016-11-06] MEDS ORDERED: FUROSEMIDE 40 MG/4 ML VIAL IV PUSH ONE (05:15)
[2016-11-06] MEDS: guaiFENesin E.R. 600 MG TAB PO SCH ×2 (08:30→21:02)
[2016-11-06] MEDS: clonazePAM 0.5 MG TAB PO SCH ×2 (08:30→21:02)
[2016-11-06] MEDS: CALCIUM/VITAMIN D 250 MG/125 U TAB PO SCH ×2 (08:30→21:03)
[2016-11-06] MEDS: predniSONE 20 MG TAB PO SCH (08:31)
[2016-11-06] MEDS: POTASSIUM CHLORIDE 20 MEQ CONTROLLED RELEASE TAB PO SCH ×2 (08:31→21:03)
[2016-11-06] MEDS: ESCITALOPRAM OXALATE 10 MG TAB PO SCH (08:31)
[2016-11-06 08:52] LABS: AUTOMATED NEUTROPHIL # 7.7 TH/MM3 (1.8-7.7); BASOPHIL # 0.1 TH/MM3 (0-0.2); BASOPHIL % 1.2 % (0.0-2.0); EOSINOPHIL # 0.1 TH/MM3 (0-0.4); EOSINOPHIL % 0.9 % (0.0-4.0); HEMATOCRIT 30.8 % (39.0-51.0); LYMPH % 16.7 % (9.0-44.0); LYMPHOCYTE # 1.8 TH/MM3 (1.0-4.8); MEAN CELL VOLUME 85.9 FL (80.0-100.0); MEAN CORPUSCULAR HEMOGLOBIN 28.9 PG (27.0-34.0); MEAN CORPUSCULAR HGB CONC 33.6 % (32.0-36.0); MONO % 8.7 % (0.0-8.0); NEUT % 72.5 % (16.0-70.0); PLATELET COUNT 89 TH/MM3 (150-450); RED BLOOD COUNT 3.59 MIL/MM3 (4.50-5.90); RED CELL DISTRIBUTION WIDTH 18.3 % (11.6-17.2); WHITE BLOOD COUNT 10.6 TH/MM3 (4.0-11.0)
[2016-11-06 08:55] LABS: HEMO FLAGS AUTO DIFF
[2016-11-06] MEDS: PANTOPRAZOLE SODIUM 40 MG VIAL IV PUSH SCH ×2 (09:00→21:03)
[2016-11-06 09:19] LABS: ALKALINE PHOSPHATASE 82 U/L (45-117); ALT (GPT) 39 U/L (12-78); ANION GAP 9 MEQ/L (5-15); AST (GOT) 26 U/L (15-37); BICARBONATE 34.4 MEQ/L (21.0-32.0); BLOOD UREA NITROGEN 11 MG/DL (7-18); CHLORIDE 98 MEQ/L (98-107); GLOMERULAR FILTRATION RATE 61 ML/MIN (>89); MAGNESIUM 1.6 MG/DL (1.5-2.5); POTASSIUM 3.1 MEQ/L (3.5-5.1); SODIUM (NA) 141 MEQ/L (136-145); TOTAL BILIRUBIN ADULT 1.6 MG/DL (0.2-1.0)
[2016-11-06 09:31] LABS: OVALOCYTES 1+ (NORMAL); PLATELET ESTIMATE SMEAR LOW (NORMAL); PLATELET MORPHOLOGY NORMAL (NORMAL); SCAN/DIFF AUTO DIFF CONFIRMED
[2016-11-06] MEDS ORDERED: POTASSIUM CHLORIDE 20 MEQ CONTROLLED RELEASE TAB PO ONE (11:00)
[2016-11-06] MEDS ORDERED: PROPOFOL 200 MG/20 ML AMP IV ONE (13:00)
--- NOTE | 2016-11-06 13:07 | HHI.PR ---
Subjective Remarks f/u for GI bleed. No bleed since in hospital. Patient asking to go home. Patient c/o not taking a bath and asking to take a bath. he has no other complaints. Denied any CP, palpitations, SOB, lightheadedness/ dizziness. Objective Vitals Vital Signs Date Time Temp Pulse Resp B/P Pulse Ox O2 Delivery O2 Flow Rate FiO2 11/06/16 10:00 86 11/06/16 09:14 95 Nasal Cannula 1.50 11/06/16 08:00 86 11/06/16 08:00 98.0 110 25 111/65 96 11/06/16 06:00 83 11/06/16 04:00 72 11/06/16 04:00 97.9 72 25 140/65 96 11/06/16 02:00 75 11/06/16 00:00 76 11/06/16 00:00 98.0 76 26 116/58 96 11/05/16 22:00 83 11/05/16 20:00 86 11/05/16 20:00 97.8 86 24 105/56 96 11/05/16 19:44 97 Nasal Cannula 2.00 11/05/16 18:00 87 11/05/16 16:00 98.3 83 22 146/67 94 11/05/16 16:00 87 11/05/16 15:00 98.8 64 13 100/42 96 Nasal Cannula 2 11/05/16 14:45 65 14 102/40 96 Nasal Cannula 2 11/05/16 14:30 65 14 127/49 97 Nasal Cannula 2 11/05/16 14:28 97.8 66 15 121/51 96 Nasal Cannula 3 11/05/16 14:00 75 I/O 11/05/16 11/05/16 11/05/16 11/06/16 11/06/16 11/06/16 07:00 15:00 23:00 07:00 15:00 23:00 Intake Total 300 ml 1145 ml 350 ml 90 ml Output Total 1050 ml 600 ml 1850 ml 1450 ml Balance -750 ml 545 ml -1500 ml -1360 ml Intake Oral 300 ml 500 ml 350 ml 90 ml IV Total 20 ml 0 ml Packed Cells 525 ml Other 100 ml Output Urine Total 150 ml 200 ml 1850 ml 1450 ml Stool Total 900 ml 400 ml # Bowel Movements 1 0 Result Diagram: 11/06/1683911/06/16839 Objective Remarks GENERAL: in NAD CARDIOVASCULAR: Regular rate and rhythm without murmurs, gallops, or rubs. RESPIRATORY: Breath sounds equal bilaterally. No accessory muscle use. GASTROINTESTINAL: Abdomen soft, non-tender, nondistended. MUSCULOSKELETAL: No cyanosis, or edema. BACK: Nontender without obvious deformity. No CVA tenderness. Medications and IVs Current Medications IV Flush 2 ml 2 ml UNSCH PRN IVF FLUSH AFTER USING IV ACCESS; Start 11/02/16 at 13:30 Sodium Chloride (NS 500 ml Inj) 500 ml @ 500 mls/hr BOLUS ONCE IV Last administered on 11/02/16 13:48; Start 11/02/16 at 13:30; Stop 11/02/16 at 14:29; Status DC Phytonadione (Vitamin K Inj) 10 mg ONCE ONCE SQ Last administered on 11/02/16 14:55; Start 11/02/16 at 14:15; Stop 11/02/16 at 14:16; Status DC Amiodarone HCl (Cordarone) 200 mg DAILY PO ; Start 11/03/16 at 09:00; Status Hold Atorvastatin Calcium (Lipitor) 10 mg HS PO Last administered on 11/05/16 20:38 ; Start 11/02/16 at 21:00 Carvedilol (Coreg) 6.25 mg BID PO Last administered on 11/02/16 21:04; Start at 21:00; Status Hold Clonazepam (KlonoPIN) 0.5 mg BID PO Last administered on 11/06/16 08:30; Start 11/02/16 at 21:00 Escitalopram Oxalate (Lexapro) 10 mg DAILY PO Last administered on 11/06/16 08 :31; Start 11/03/16 at 09:00 Furosemide (Lasix) 40 mg DAILY PO ; Start 11/03/16 at 09:00; Status Hold Potassium Chloride (KCl) 20 meq Q12HR PO Last administered on 11/06/16 08:31; Start 11/02/16 at 21:00 Prednisone (Deltasone) 20 mg DAILY PO Last administered on 11/06/16 08:31; Start 11/03/16 at 09:00 Tamsulosin HCl (Flomax) 0.4 mg HS PO Last administered on 11/02/16 21:04; Start 11/02/16 at 21:00; Status Hold Calcium/Vitamin D 500 mg 500 mg BID PO Last administered on 11/06/16 08:30; Start 11/02/16 at 21:00 Sodium Chloride (NS 1000 ml Inj) 1,000 ml @ 100 mls/hr Q10H IV Last administered on 11/02/16 16:59; Start 11/02/16 at 15:27; Stop 11/02/16 at 17:13; Status DC IV Flush (NS Flush) 2 ml UNSCH PRN FLUSH FLUSH AFTER USING IV ACCESS Last administered on 11/05/16 05:04; Start 11/02/16 at 15:30 IV Flush (NS Flush) 2 ml BID FLUSH Last administered on 11/05/16 20:38; Start 11/02/16 at 21:00 Acetaminophen (Tylenol) 650 mg Q4H PRN PO TEMP > 100.4; Start 11/02/16 at 15:30 Ondansetron HCl (Zofran Inj) 4 mg Q6H PRN IVP NAUSEA OR VOMITING; Start at 15:30 Metoclopramide HCl (Reglan Inj) 5 mg Q6H PRN IV PUSH NAUSEA OR VOMITING; Start 11/02/16 at 15:30 Bisacodyl (Dulcolax Supp) 10 mg DAILY PRN PA CONSTIPATION; Start 11/02/16 at 15: 30 Docusate Sodium (Colace) 100 mg Q12H PO Last administered on 11/04/16 17:15; Start 11/02/16 at 15:30 Naloxone HCl (Narcan Inj) 0.4 mg UNSCH PRN IV SEE LABEL COMMENTS; Start at 15:30 Furosemide (Lasix Inj) 40 mg ONCE ONCE IV PUSH Last administered on 11/02/16 18:14; Start 11/02/16 at 17:15; Stop 11/02/16 at 17:16; Status DC Albuterol/ Ipratropium (Duoneb Neb) 1 ampule Q4HR NEB NEB Last administered on 11/06/16 12:20; Start 11/02/16 at 20:00 Guaifenesin (Mucinex Er) 600 mg BID PO Last administered on 11/06/16 08:30; Start 11/02/16 at 21:00 Pantoprazole Sodium (Protonix Inj) 40 mg Q12H IV PUSH Last administered on 05:04; Start 11/02/16 at 17:15; Stop 11/05/16 at 09:55; Status DC Furosemide (Lasix Inj) 20 mg ONCE ONCE IV PUSH Last administered on 11/03/16 10:53; Start 11/03/16 at 00:30; Stop 11/03/16 at 00:33; Status DC Polyethylene Glycol/ Electrolytes 4000 ml 4,000 ml UNSCH X1 PO ; Start 11/03/16 at 01:15; Stop 11/03/16 at 04:00; Status DC Norepinephrine Bitartrate (Levophed-Dextrose Drip) 250 ml @ 0 mls/hr TITRATE IV ; Start 11/03/16 at 03:15; Stop 11/05/16 at 08:04; Status DC Terbutaline Sulfate 1 mg 1 mg UNSCH PRN SQ For Extravasation; Start 11/03/16 at 03:15; Stop 11/05/16 at 09:56; Status DC Norepinephrine Bitartrate (Levophed-Dextrose Drip) 250 ml @ 0 mls/hr TITRATE IV ; Start 11/03/16 at 04:15 Terbutaline Sulfate 1 mg 1 mg UNSCH PRN SQ For Extravasation; Start 11/03/16 at 04:15 Calcium Chloride/ Sodium Chloride (Calcium Chloride Inj/NS Inj) 120 ml @ 120 mls/hr ONCE ONCE IV Last administered on 11/03/16 08:12; Start 11/03/16 at 04: 30; Stop 11/03/16 at 05:29; Status DC Polyethylene Glycol/ Electrolytes (Colyte Liq) 4,000 ml ONCE ONCE PO Last administered on 11/04/16 15:15; Start 11/04/16 at 15:15; Stop 11/04/16 at 15:16; Status DC Furosemide (Lasix Inj) 20 mg UNSCH X1 PRN IV BETWEEN UNITS PRBC Last administered on 11/05/16 15:52; Start 11/05/16 at 08:15; Stop 11/05/16 at 16:00; Status DC Pantoprazole Sodium (Protonix Inj) 40 mg Q12HR IV PUSH Last administered on 09:00; Start 11/05/16 at 21:00 Ketamine HCl (Ketalar Inj) 500 mg STK-MED ONCE .ROUTE ; Start 11/05/16 at 14:33; Stop 11/05/16 at 14:34; Status DC Miscellaneous Information ALL NURSING DEPARTME... UNSCH PRN XX SEE LABEL COMMENTS; Start 11/05/16 at 15:45; Stop 11/06/16 at 15:44 Furosemide (Lasix Inj) 20 mg NOW ONCE IV PUSH Last administered on 11/06/16 00:11; Start 11/06/16 at 00:15; Stop 11/06/16 at 00:16; Status DC Furosemide (Lasix Inj) 40 mg NOW ONCE IV PUSH Last administered on 11/06/16 05:42; Start 11/06/16 at 05:15; Stop 11/06/16 at 05:16; Status DC Potassium Chloride (KCl) 40 meq ONCE ONCE PO Last administered on 11/06/16 11 :00; Start 11/06/16 at 11:00; Stop 11/06/16 at 11:01; Status DC Propofol (Diprivan 200 Mg/20 ml Inj) 400 mg STK-MED ONCE IV ; Start 11/06/16 at 13:00; Stop 11/06/16 at 13:01; Status DC Propofol (Diprivan 200 Mg/20 ml Inj) 400 mg STK-MED ONCE IV ; Start 11/05/16 at 13:55; Stop 11/06/16 at 10:46; Status DC A/P Problem List: (1) Acute blood loss anemia ICD Code: D62 Status: Acute (2) Coronary artery disease ICD Code: I25.10 Status: Chronic (3) Hypertension ICD Code: I10 Status: Chronic (4) Atrial fibrillation ICD Code: I48.91 Status: Chronic (5) COPD (chronic obstructive pulmonary disease) ICD Code: J44.9 Status: Acute (6) CHF (congestive heart failure) ICD Code: I50.9 Status: Acute (7) Renal insufficiency ICD Code: N28.9 Status: Acute (8) Warfarin-induced coagulopathy ICD Code: D69.9 Status: Acute (9) Rectal bleed ICD Code: K62.5 Status: Acute (10) Supratherapeutic INR ICD Code: R79.1 Status: Acute Assessment and Plan GI bleed -responded well to transfusion. -need to continue to trend. -s/p EGD and colonoscopy few diverticulosis in sigmoid, small polyps in the ascending colon removed by snare, small internal hemorrhoids, and gastritis. -on protonix 40 mg PO BID Hypovolemic Shock -due to GI bleed. -stable. -resolved. chronic coagulopathy -was on coumadin. -held due to GI bleed. COPD - not exacerbated Acute blood loss anemia -due to GI bleed. -see above. Discharge Planning if Hemoglobin is stable can be d/c to rehab tomorrow if okay with GI. patient can be down graded. Pura Ayala MD Nov 06, 2016 13:07 Pura Ayala MD Nov 06, 2016 13:07
--- NOTE | 2016-11-06 13:48 | HHI.GIFU ---
Subjective Remarks Resting in bed. No further bleeding since yesterday. No n/v. No abdominal pain. (Marly Schmitz) Objective Vitals I&O Vital Signs Date Time Temp Pulse Resp B/P Pulse Ox O2 Delivery O2 Flow Rate FiO2 11/06/16 12:00 86 11/06/16 10:00 86 11/06/16 09:14 95 Nasal Cannula 1.50 11/06/16 08:00 86 11/06/16 08:00 98.0 110 25 111/65 96 11/06/16 06:00 83 11/06/16 04:00 72 11/06/16 04:00 97.9 72 25 140/65 96 11/06/16 02:00 75 11/06/16 00:00 76 11/06/16 00:00 98.0 76 26 116/58 96 11/05/16 22:00 83 11/05/16 20:00 86 11/05/16 20:00 97.8 86 24 105/56 96 11/05/16 19:44 97 Nasal Cannula 2.00 11/05/16 18:00 87 11/05/16 16:00 98.3 83 22 146/67 94 11/05/16 16:00 87 11/05/16 15:00 98.8 64 13 100/42 96 Nasal Cannula 2 11/05/16 14:45 65 14 102/40 96 Nasal Cannula 2 11/05/16 14:30 65 14 127/49 97 Nasal Cannula 2 11/05/16 14:28 97.8 66 15 121/51 96 Nasal Cannula 3 11/05/16 14:00 75 I/O 11/05/16 11/05/16 11/05/16 11/06/16 11/06/16 11/06/16 07:00 15:00 23:00 07:00 15:00 23:00 Intake Total 300 ml 1145 ml 350 ml 90 ml Output Total 1050 ml 600 ml 1850 ml 1450 ml Balance -750 ml 545 ml -1500 ml -1360 ml Intake Oral 300 ml 500 ml 350 ml 90 ml IV Total 20 ml 0 ml Packed Cells 525 ml Other 100 ml Output Urine Total 150 ml 200 ml 1850 ml 1450 ml Stool Total 900 ml 400 ml # Bowel Movements 1 0 Laboratory Laboratory Tests Test 11/05/16 11/06/16 16:06 08:40 Blood Type A POSITIVE Crossmatch Leukocyte-Reduced Red Blood Cells Blood Bank Comment White Blood Count 10.6 Red Blood Count 3.59 Hemoglobin 10.4 Hematocrit 30.8 Mean Corpuscular Volume 85.9 Mean Corpuscular Hemoglobin 28.9 Mean Corpuscular Hemoglobin 33.6 Concent Red Cell Distribution Width 18.3 Platelet Count 89 Mean Platelet Volume 8.2 Neutrophils (%) (Auto) 72.5 Lymphocytes (%) (Auto) 16.7 Monocytes (%) (Auto) 8.7 Eosinophils (%) (Auto) 0.9 Basophils (%) (Auto) 1.2 Neutrophils # (Auto) 7.7 Lymphocytes # (Auto) 1.8 Monocytes # (Auto) 0.9 Eosinophils # (Auto) 0.1 Basophils # (Auto) 0.1 CBC Comment AUTO DIFF Differential Comment AUTO DIFF CONFIRMED Platelet Estimate LOW Platelet Morphology Comment NORMAL Polychromasia 2.0 Ovalocytes 1+ Sodium Level 141 Potassium Level 3.1 Chloride Level 98 Carbon Dioxide Level 34.4 Anion Gap 9 Blood Urea Nitrogen 11 Creatinine 1.17 Estimat Glomerular Filtration 61 Rate Random Glucose 81 Calcium Level 8.1 Phosphorus Level 2.3 Magnesium Level 1.6 Total Bilirubin 1.6 Aspartate Amino Transf 26 (AST/SGOT) Alanine Aminotransferase 39 (ALT/SGPT) Alkaline Phosphatase 82 Total Protein 5.5 Albumin 2.6 Imaging Last Impressions Chest X-Ray 11/03/16 0000 Signed Impressions: Service Date/Time: Thursday, November 03, 2016 04:32 - CONCLUSION: 1. Interval placement of right subclavian central venous catheter with the tip projecting cephalad into the ipsilateral internal jugular vein. 2. Stable left basilar consolidation/effusion. 3. Cardiomegaly with some developing interstitial edema predominantly right perihilar distribution suggesting some degree of volume overload/vascular congestion. Duarte Gupta MD Physical Exam HEENT: Normocephalic; atraumatic; no jaundice. CHEST: Resp. shallow/even, diminished CARDIAC: RRR ABDOMEN: Soft, obese, nondistended, nontender; no hepatosplenomegaly; bowel sounds are present in all four quadrants. EXTREMITIES: Generalized edema. SKIN: Normal; no rash; no jaundice. CARD FEEDER: No focal deficits; Lethargic and oriented times three. (Schmitz,Marly Jannie WALLPAPER INSTALLER) Assessment and Plan Plan ASSESSMENT: - GIB, Lower. Pt had 2 episodes of bloody stool with maroon blood yesterday and another one overnight. S/P Vitamin K 10mg sq x 1. S/P 4 units PRBC. 2 units FFP. HH 10.4/30.8. S/P EGD/Colonoscopy (11/05/16)-----> gastritis bx from antrum, normal endoscopy otherwise, retroflexed revealed no abnormalities, few diverticulosis in the sigmoid, normal surgical anastamosis , no active bleed, small polyp in the ascending colon removed by snare, the colon mucosa was otherwise normal, retroflexed views revealed internal hemorrhoids, small internal hemorrhoids, revealed no abnormalities of the rectum. No bleeding today. PPI. - Anemia, acute blood loss. S/P 4 units PRBC. HH 10.4/30.8. - GERD. PPI - Abnormal weight loss. 30 lb weight loss over the past 2-3 months. - Chronic anticoagulation for Atrial Fibrillation with INR of 3.0. S/P Vitamin K 10mg sq x 1. S/P 4 units FFP. INR 1.1. - Chronic thrombocytopenia, hx of ITP. Plt 89 - Respiratory Insufficiency with hx of CHF, COPD, TERRENCE. Pt with sob while speaking, still with significant wheezing, crackles. Per primary - CHF, Cardiomyopathy, atrial fibrillation, CAD, Hyperlipidemia. Per primary - COPD, TERRENCE. - Hx Diverticulitis with perforation, requiring diverting colostomy 2014 with later reversal in March 2015. PLAN: - Heart healthy diet - Cont. PPI - Monitor HH q6h - Transfuse as necessary - If active bleeding then stat bleeding scan - Supportive care - Further recommendations to follow based on results of above - Pt seen and examined by Dr. Longoria and myself and this note is written on his behalf (Marly Schmitz) Physician Comments Seen and examined with PROMISE, doing well , no complaints. Consider CT of abdomen/ pelvis for further burles[place] of weight loss. Gi bleed stable. Gi will sign off, reconsult as needed. Fu with gi upon dc. Thank you (Luis Longoria MD) Marly Schmitz Nov 06, 2016 13:48 Luis Longoria MD Nov 06, 2016 20:04
[2016-11-06] MEDS: ATORVASTATIN 10 MG TAB PO SCH (21:02)
[2016-11-06] MEDS: SODIUM CHLORIDE 0.9% FLUSH 5 ML FLUSH FLUSH SCH (21:03)
[2016-11-06] MEDS: SODIUM CHLORIDE 0.9% FLUSH 5 ML FLUSH FLUSH PRN (21:04)
[2016-11-07] VITALS (13 sets, daily range): BP systolic 98–143; BP diastolic 58–67; PULSE 72–104; RESP 23–33; TEMP 97.9–98.1; O2SAT 91–98
[2016-11-07] MEDS ORDERED: FUROSEMIDE 40 MG/4 ML VIAL IV PUSH ONE (01:00)
[2016-11-07] MEDS ORDERED: POTASSIUM CHLORIDE 25 MEQ EFFERVESCENT TAB PO ONE ×2 (01:00→04:30)
[2016-11-07] MEDS: SODIUM CHLORIDE 0.9% FLUSH 5 ML FLUSH FLUSH PRN (01:04)
[2016-11-07] MEDS: DOCUSATE SODIUM 100 MG CAP PO SCH ×2 (03:30→17:15)
--- NOTE | 2016-11-07 04:07 | RADRPT ---
EXAM DATE/TIME: 11/07/2016 03:32 [facility] COMPARISON: CHEST SINGLE AP, November 03, 2016, 4:32. INDICATIONS : Congestion. MEDICAL HISTORY : Hypertension. Chronic obstructive pulmonary disease. SURGICAL HISTORY : Pacemaker. ENCOUNTER: Subsequent ACUITY: 1 week PAIN SCORE: 0/10 LOCATION: Bilateral chest FINDINGS: There is increasing consolidation at the left lower lung, now with complete loss of delineation left hemidiaphragm. Right subclavian catheter ascends into the neck, similar to prior. The right lung is clear. Cardiac pacer lead stable. CONCLUSION: Increasing left lower lung consolidation. Gary Sandoval MD on November 07, 2016 at 4:05 Board Certified Radiologist. This report was verified electronically.
[2016-11-07] MEDS ORDERED: POTASSIUM CHLORIDE 20 MEQ CONTROLLED RELEASE TAB PO ONE (04:30)
[2016-11-07] MEDS ORDERED: FUROSEMIDE 20 MG/2 ML VIAL IV PUSH ONE (04:30)
[2016-11-07 04:59] LABS: AUTOMATED NEUTROPHIL # 8.3 TH/MM3 (1.8-7.7); BASOPHIL # 0.1 TH/MM3 (0-0.2); BASOPHIL % 0.5 % (0.0-2.0); EOSINOPHIL # 0.1 TH/MM3 (0-0.4); HEMATOCRIT 29.8 % (39.0-51.0); LYMPH % 16.4 % (9.0-44.0); LYMPHOCYTE # 1.8 TH/MM3 (1.0-4.8); MEAN CELL VOLUME 86.4 FL (80.0-100.0); MEAN CORPUSCULAR HEMOGLOBIN 28.7 PG (27.0-34.0); MEAN CORPUSCULAR HGB CONC 33.2 % (32.0-36.0); MONO % 7.9 % (0.0-8.0); NEUT % 74.2 % (16.0-70.0); PLATELET COUNT 76 TH/MM3 (150-450); RED BLOOD COUNT 3.44 MIL/MM3 (4.50-5.90); RED CELL DISTRIBUTION WIDTH 17.5 % (11.6-17.2); WHITE BLOOD COUNT 11.2 TH/MM3 (4.0-11.0)
[2016-11-07 05:10] LABS: HEMO FLAGS AUTO DIFF
[2016-11-07 05:21] LABS: POTASSIUM 3.6 MEQ/L (3.5-5.1)
[2016-11-07 06:42] LABS: PLATELET ESTIMATE SMEAR LOW (NORMAL); PLATELET MORPHOLOGY NORMAL (NORMAL); SCAN/DIFF AUTO DIFF CONFIRMED
[2016-11-07] MEDS: guaiFENesin E.R. 600 MG TAB PO SCH ×2 (09:13→21:28)
[2016-11-07] MEDS: PANTOPRAZOLE SODIUM 40 MG VIAL IV PUSH SCH ×2 (09:13→21:30)
[2016-11-07] MEDS: POTASSIUM CHLORIDE 20 MEQ CONTROLLED RELEASE TAB PO SCH ×2 (09:14→21:28)
[2016-11-07] MEDS: predniSONE 20 MG TAB PO SCH (09:14)
[2016-11-07] MEDS: ESCITALOPRAM OXALATE 10 MG TAB PO SCH (09:14)
[2016-11-07] MEDS: CALCIUM/VITAMIN D 250 MG/125 U TAB PO SCH ×2 (09:14→21:28)
[2016-11-07] MEDS: SODIUM CHLORIDE 0.9% FLUSH 5 ML FLUSH FLUSH SCH ×2 (09:14→21:30)
[2016-11-07] MEDS: clonazePAM 0.5 MG TAB PO SCH ×2 (09:14→21:29)
[2016-11-07] MEDS ORDERED: DIATRIZOATE MEGLUM/DIATRIZOATE SOD 9 ML CUP PO ONE (13:00)
--- NOTE | 2016-11-07 15:41 | HHI.PR ---
Subjective Remarks f/u in regards to GI bleed. patient upset and [facility] to [facility]. per nurse patient c/o SOB this AM and he was given a dose of IV lasix and nebs. Breathing improved. patient denied this to me and is very determined to leave. He has no GI bleed at the same time no BM. Patient stated he is doing well. Denied any CP, lightheadedness or dizziness. Objective Vitals Vital Signs Date Time Temp Pulse Resp B/P Pulse Ox O2 Delivery O2 Flow Rate FiO2 11/07/16 14:00 100 11/07/16 12:00 89 11/07/16 12:00 98.0 89 30 134/66 94 11/07/16 10:00 104 11/07/16 08:57 98 Nasal Cannula 1.50 11/07/16 08:00 98.1 82 33 130/63 94 11/07/16 08:00 82 11/07/16 06:00 80 11/07/16 04:00 74 11/07/16 04:00 98.0 74 25 122/58 96 11/07/16 02:00 72 11/07/16 00:00 97.9 73 23 143/64 96 11/07/16 00:00 73 11/06/16 22:00 75 11/06/16 20:33 96 Nasal Cannula 1.50 11/06/16 20:00 98.0 83 22 126/60 94 11/06/16 20:00 83 11/06/16 18:00 86 11/06/16 16:00 86 11/06/16 16:00 98.0 I/O 11/06/16 11/06/16 11/06/16 11/07/16 11/07/16 11/07/16 07:00 15:00 23:00 07:00 15:00 23:00 Intake Total 90 ml 390 ml 370 ml 300 ml 300 ml Output Total 1450 ml 2000 ml 600 ml 2400 ml 350 ml Balance -1360 ml -1610 ml -230 ml -2100 ml -50 ml Intake Oral 90 ml 380 ml 350 ml 300 ml 300 ml IV Total 20 ml Packed Cells 10 ml Output Urine Total 1450 ml 2000 ml 600 ml 2400 ml 350 ml # Bowel Movements 0 0 0 0 0 Result Diagram: 11/07/1643611/[id number]/16436 Objective Remarks GENERAL: in NAD CARDIOVASCULAR: Regular rate and rhythm without murmurs, gallops, or rubs. RESPIRATORY: + rhonchi. No accessory muscle use. GASTROINTESTINAL: Abdomen soft, non-tender, nondistended. MUSCULOSKELETAL: No cyanosis, or edema. BACK: Nontender without obvious deformity. No CVA tenderness. Medications and IVs Current Medications IV Flush 2 ml 2 ml UNSCH PRN IVF FLUSH AFTER USING IV ACCESS; Start 11/02/16 at 13:30 Sodium Chloride (NS 500 ml Inj) 500 ml @ 500 mls/hr BOLUS ONCE IV Last administered on 11/02/16 13:48; Start 11/02/16 at 13:30; Stop 11/02/16 at 14:29; Status DC Phytonadione (Vitamin K Inj) 10 mg ONCE ONCE SQ Last administered on 11/02/16 14:55; Start 11/02/16 at 14:15; Stop 11/02/16 at 14:16; Status DC Amiodarone HCl (Cordarone) 200 mg DAILY PO ; Start 11/03/16 at 09:00 Atorvastatin Calcium (Lipitor) 10 mg HS PO Last administered on 11/06/16 21:02 ; Start 11/02/16 at 21:00 Carvedilol (Coreg) 6.25 mg BID PO Last administered on 11/02/16 21:04; Start at 21:00 Clonazepam (KlonoPIN) 0.5 mg BID PO Last administered on 11/07/16 09:14; Start 11/02/16 at 21:00 Escitalopram Oxalate (Lexapro) 10 mg DAILY PO Last administered on 11/07/16 09 :14; Start 11/03/16 at 09:00 Furosemide (Lasix) 40 mg DAILY PO ; Start 11/03/16 at 09:00 Potassium Chloride (KCl) 20 meq Q12HR PO Last administered on 11/07/16 09:14; Start 11/02/16 at 21:00 Prednisone (Deltasone) 20 mg DAILY PO Last administered on 11/07/16 09:14; Start 11/03/16 at 09:00 Tamsulosin HCl (Flomax) 0.4 mg HS PO Last administered on 11/02/16 21:04; Start 11/02/16 at 21:00 Calcium/Vitamin D 500 mg 500 mg BID PO Last administered on 11/07/16 09:14; Start 11/02/16 at 21:00 Sodium Chloride (NS 1000 ml Inj) 1,000 ml @ 100 mls/hr Q10H IV Last administered on 11/02/16 16:59; Start 11/02/16 at 15:27; Stop 11/02/16 at 17:13; Status DC IV Flush (NS Flush) 2 ml UNSCH PRN FLUSH FLUSH AFTER USING IV ACCESS Last administered on 11/07/16 01:04; Start 11/02/16 at 15:30 IV Flush (NS Flush) 2 ml BID FLUSH Last administered on 11/07/16 09:14; Start 11/02/16 at 21:00 Acetaminophen (Tylenol) 650 mg Q4H PRN PO TEMP > 100.4; Start 11/02/16 at 15:30 Ondansetron HCl (Zofran Inj) 4 mg Q6H PRN IVP NAUSEA OR VOMITING; Start at 15:30 Metoclopramide HCl (Reglan Inj) 5 mg Q6H PRN IV PUSH NAUSEA OR VOMITING; Start 11/02/16 at 15:30 Bisacodyl (Dulcolax Supp) 10 mg DAILY PRN [place] CONSTIPATION; Start 11/02/16 at 15: 30 Docusate Sodium (Colace) 100 mg Q12H PO Last administered on 11/04/16 17:15; Start 11/02/16 at 15:30 Naloxone HCl (Narcan Inj) 0.4 mg UNSCH PRN IV SEE LABEL COMMENTS; Start at 15:30 Furosemide (Lasix Inj) 40 mg ONCE ONCE IV PUSH Last administered on 11/02/16 18:14; Start 11/02/16 at 17:15; Stop 11/02/16 at 17:16; Status DC Albuterol/ Ipratropium (Duoneb Neb) 1 ampule Q4HR NEB NEB Last administered on 11/06/16 16:20; Start 11/02/16 at 20:00; Stop 11/06/16 at 20:00; Status DC Guaifenesin (Mucinex Er) 600 mg BID PO Last administered on 11/07/16 09:13; Start 11/02/16 at 21:00 Pantoprazole Sodium (Protonix Inj) 40 mg Q12H IV PUSH Last administered on 05:04; Start 11/02/16 at 17:15; Stop 11/05/16 at 09:55; Status DC Furosemide (Lasix Inj) 20 mg ONCE ONCE IV PUSH Last administered on 11/03/16 10:53; Start 11/03/16 at 00:30; Stop 11/03/16 at 00:33; Status DC Polyethylene Glycol/ Electrolytes 4000 ml 4,000 ml UNSCH X1 PO ; Start 11/03/16 at 01:15; Stop 11/03/16 at 04:00; Status DC Norepinephrine Bitartrate (Levophed-Dextrose Drip) 250 ml @ 0 mls/hr TITRATE IV ; Start 11/03/16 at 03:15; Stop 11/05/16 at 08:04; Status DC Terbutaline Sulfate 1 mg 1 mg UNSCH PRN SQ For Extravasation; Start 11/03/16 at 03:15; Stop 11/05/16 at 09:56; Status DC Norepinephrine Bitartrate (Levophed-Dextrose Drip) 250 ml @ 0 mls/hr TITRATE IV ; Start 11/03/16 at 04:15 Terbutaline Sulfate 1 mg 1 mg UNSCH PRN SQ For Extravasation; Start 11/03/16 at 04:15 Calcium Chloride/ Sodium Chloride (Calcium Chloride Inj/NS Inj) 120 ml @ 120 mls/hr ONCE ONCE IV Last administered on 11/03/16 08:12; Start 11/03/16 at 04: 30; Stop 11/03/16 at 05:29; Status DC Polyethylene Glycol/ Electrolytes (Colyte Liq) 4,000 ml ONCE ONCE PO Last administered on 11/04/16 15:15; Start 11/04/16 at 15:15; Stop 11/04/16 at 15:16; Status DC Furosemide (Lasix Inj) 20 mg UNSCH X1 PRN IV BETWEEN UNITS PRBC Last administered on 11/05/16 15:52; Start 11/05/16 at 08:15; Stop 11/05/16 at 16:00; Status DC Pantoprazole Sodium (Protonix Inj) 40 mg Q12HR IV PUSH Last administered on 09:13; Start 11/05/16 at 21:00 Ketamine HCl (Ketalar Inj) 500 mg STK-MED ONCE .ROUTE ; Start 11/05/16 at 14:33; Stop 11/05/16 at 14:34; Status DC Miscellaneous Information ALL NURSING DEPARTME... UNSCH PRN XX SEE LABEL COMMENTS; Start 11/05/16 at 15:45; Stop 11/06/16 at 15:44; Status DC Furosemide (Lasix Inj) 20 mg NOW ONCE IV PUSH Last administered on 11/06/16 00:11; Start 11/06/16 at 00:15; Stop 11/06/16 at 00:16; Status DC Furosemide (Lasix Inj) 40 mg NOW ONCE IV PUSH Last administered on 11/06/16 05:42; Start 11/06/16 at 05:15; Stop 11/06/16 at 05:16; Status DC Potassium Chloride (KCl) 40 meq ONCE ONCE PO Last administered on 11/06/16 11 :00; Start 11/06/16 at 11:00; Stop 11/06/16 at 11:01; Status DC Propofol (Diprivan 200 Mg/20 ml Inj) 400 mg STK-MED ONCE IV ; Start 11/06/16 at 13:00; Stop 11/06/16 at 13:01; Status DC Propofol (Diprivan 200 Mg/20 ml Inj) 400 mg STK-MED ONCE IV ; Start 11/05/16 at 13:55; Stop 11/06/16 at 10:46; Status DC Furosemide (Lasix Inj) 40 mg ONCE ONCE IV PUSH Last administered on 11/07/16 01:04; Start 11/07/16 at 01:00; Stop 11/07/16 at 01:01; Status DC Potassium Bicarb/ Potassium Chloride (K-Lyte Cl Eff) 50 meq ONCE ONCE PO Last administered on 11/07/16 01:04; Start 11/07/16 at 01:00; Stop 11/07/16 at 01:01; Status DC Furosemide (Lasix Inj) 20 mg ONCE ONCE IV PUSH Last administered on 11/07/16 04:35; Start 11/07/16 at 04:30; Stop 11/07/16 at 04:31; Status DC Potassium Bicarb/ Potassium Chloride (K-Lyte Cl Eff) 25 meq ONCE ONCE PO ; Start 11/07/16 at 04:30; Stop 11/07/16 at 04:30; Status DC Potassium Chloride (KCl) 20 meq ONCE ONCE PO Last administered on 11/07/16t 04 :35; Start 11/07/16 at 04:30; Stop 11/07/16 at 04:31; Status DC Diatrizoate Meglum/ Diatrizoate Sod ( Gastrojaswinder Liq) 18 ml ONCE ONCE PO Last administered on 11/07/16t 13:53; Start 11/07/16 at 13:00; Stop 11/07/16 at 13:01; Status DC A/P Problem List: (1) Acute blood loss anemia ICD Code: D62 Status: Acute (2) Coronary artery disease ICD Code: I25.10 Status: Chronic (3) Hypertension ICD Code: I10 Status: Chronic (4) Atrial fibrillation ICD Code: I48.91 Status: Chronic (5) COPD (chronic obstructive pulmonary disease) ICD Code: J44.9 Status: Acute (6) CHF (congestive heart failure) ICD Code: I50.9 Status: Acute (7) Renal insufficiency ICD Code: N28.9 Status: Acute (8) Warfarin-induced coagulopathy ICD Code: D69.9 Status: Acute (9) Rectal bleed ICD Code: K62.5 Status: Acute (10) Supratherapeutic INR ICD Code: R79.1 Status: Acute Assessment and Plan GI bleed -responded well to transfusion. -s/p EGD and colonoscopy few diverticulosis in sigmoid, small polyps in the ascending colon removed by snare, small internal hemorrhoids, and gastritis. -on Protonix 40 mg PO BID -d/w Dr. Lee over the phone and he stated can restart Coumadin and f/u with them as outpatient. weight loss -per GI recommend CT scan so will get CT scan. Hypovolemic Shock -due to GI bleed. -stable. -resolved. chronic coagulopathy -was on coumadin. -held due to GI bleed. COPD - not exacerbated Acute blood loss anemia -due to GI bleed. -see above. Acute on chronic respiratory failure -patient has increase in SOB most likely due to CHF exacerbation. -he was give a dose of lasix and neb with improvement. -will restart home lasix and continue to monitor. acute CHF -restart home medication. -continue to monitor. -strict I/O. DVT prophylaxis -restart Coumadin. Discharge Planning GI signed off. due to increase respiratory distress need to continue to monitor. if he continues to do well most likely can be d/c tomorrow to [facility] if bed is available. Pura Ayala MD Nov 07, 2016 15:41
[2016-11-07] MEDS ORDERED: IOHEXOL 350 MG/ML 10 ML VIAL (for RAD DIAG) IV ONE (16:08)
--- NOTE | 2016-11-07 17:29 | RADRPT ---
EXAM DATE/TIME: 11/07/2016 16:21 [facility] COMPARISON: CT ABDOMEN & PELVIS W CONTRAST, August 03, 2015, 19:32. INDICATIONS : Weight loss. IV CONTRAST: 98 cc Omnipaque 350 (iohexol) IV ORAL CONTRAST: Prescribed oral contrast ingested. RADIATION DOSE: 16.45 CTDIvol (mGy) MEDICAL HISTORY : Stroke. Cardiovascular disease ruptured diverticula with colostomy. SURGICAL HISTORY : Colostomy. ENCOUNTER: Initial ACUITY: 1 day PAIN SCALE: 5/10 LOCATION: Bilateral abdomen. TECHNIQUE: Volumetric scanning of the abdomen and pelvis was performed. Using automated exposure control and ad justment of the mA and/or kV according to patient size, radiation dose was kept as low as reasonably achievable to obtain optimal diagnostic quality images. FINDINGS: Solid organs are within normal limits. No lymphadenopathy or ascites demonstrated. No obstruction or acute inflammatory changes are seen of the GI tract. Previously seen large air collection in the right lower quadrant anterior abdominal wall has res olved with mild scarring. Just lateral to it is a 3.4 cm spigelian hernia which partially contains th e adjacent transverse colon, series 2 image 41. There are ventral hernias near the umbilicus one dee uring about 5.7 cm across and the other about 4.1 cm across, both containing loops of small bowel. On e of the small bowel loops appears to be just beneath the skin. No obstruction demonstrated or eviden ce of incarceration. Mild diverticulosis of the left side of the colon. There is atherosclerotic calcification of the abdominal aorta. No aneurysm. There is mild left base consolidation. There is mild pace chamber enlargement of the visualized h eart. Myocardial calcification of the left ventricular apex again seen. CONCLUSION: 1. No evidence of malignancy within the abdomen or pelvis. 2. Multiple intra-abdominal wall hernias as above. There is a right spigelian hernia containing colon and 2 ventral hernias containing small bowel. No obstruction. 3. Mild sigmoid colon diverticulosis without acute inflammatory changes. 4. Aorto iliac atherosclerosis. No aneurysm. 5. Volume loss and patchy consolidation of the visualized left lung base. 6. 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 Salvatore Doe MD on November 07, 2016 at 17:23 Board Certified Radiologist. This report was verified electronically.
[2016-11-07] MEDS: TAMSULOSIN HCL 0.4 MG CAP PO SCH (21:28)
[2016-11-07] MEDS: CARVEDILOL 6.25 MG TAB PO SCH (21:29)
[2016-11-07] MEDS: ATORVASTATIN 10 MG TAB PO SCH (21:29)
[2016-11-08] VITALS (11 sets, daily range): BP systolic 116–131; BP diastolic 56–68; PULSE 60–108; RESP 18–26; TEMP 98.1–98.6; O2SAT 92–96
[2016-11-08] MEDS: DOCUSATE SODIUM 100 MG CAP PO SCH ×2 (03:39→16:09)
[2016-11-08 05:38] LABS: HEMATOCRIT 29.3 % (39.0-51.0); MEAN CELL VOLUME 87.7 FL (80.0-100.0); MEAN CORPUSCULAR HEMOGLOBIN 28.9 PG (27.0-34.0); MEAN CORPUSCULAR HGB CONC 32.9 % (32.0-36.0); PLATELET COUNT 68 TH/MM3 (150-450); RED BLOOD COUNT 3.34 MIL/MM3 (4.50-5.90); RED CELL DISTRIBUTION WIDTH 17.5 % (11.6-17.2); WHITE BLOOD COUNT 11.3 TH/MM3 (4.0-11.0)
[2016-11-08 05:55] LABS: REVIEW FLAG FINAL
[2016-11-08 06:08] LABS: BICARBONATE 32.2 MEQ/L (21.0-32.0); POTASSIUM 4.2 MEQ/L (3.5-5.1)
[2016-11-08] MEDS: predniSONE 20 MG TAB PO SCH (08:58)
[2016-11-08] MEDS: clonazePAM 0.5 MG TAB PO SCH (08:58)
[2016-11-08] MEDS: CARVEDILOL 6.25 MG TAB PO SCH (08:58)
[2016-11-08] MEDS: guaiFENesin E.R. 600 MG TAB PO SCH (08:58)
[2016-11-08] MEDS: CALCIUM/VITAMIN D 250 MG/125 U TAB PO SCH (08:58)
[2016-11-08] MEDS: POTASSIUM CHLORIDE 20 MEQ CONTROLLED RELEASE TAB PO SCH (08:58)
[2016-11-08] MEDS: ESCITALOPRAM OXALATE 10 MG TAB PO SCH (08:58)
[2016-11-08] MEDS: SODIUM CHLORIDE 0.9% FLUSH 5 ML FLUSH FLUSH SCH (08:59)
[2016-11-08] MEDS: PANTOPRAZOLE SODIUM 40 MG VIAL IV PUSH SCH (08:59)
[2016-11-08] MEDS ORDERED: HYDR-4107 PO (09:29)
[2016-11-08] MEDS ORDERED: CLON0.5T PO (09:29)
[2016-11-08] MEDS ORDERED: PROT40TA PO (09:29)
[2016-11-08] MEDS ORDERED: DOCU1CAP39 PO (09:29)
[2016-11-08] MEDS ORDERED: methylPREDNISolone SOD SUCC 125 MG/2 ML VIAL IV PUSH ONE (10:00)
--- NOTE | 2016-11-08 10:39 | HHI.DS ---
Discharge Summary Admission Date Nov 02, 2016 at 15:26 Discharge Date: Nov 08, 2016 Admitting Diagnosis rectal bleed, supratherapeutic INR (1) Acute blood loss anemia ICD Code: D62 Diagnosis: Principal (2) Coronary artery disease ICD Code: I25.10 Diagnosis: Secondary (3) Hypertension ICD Code: I10 Diagnosis: Secondary (4) Atrial fibrillation ICD Code: I48.91 Diagnosis: Secondary (5) COPD (chronic obstructive pulmonary disease) ICD Code: J44.9 Diagnosis: Secondary (6) CHF (congestive heart failure) ICD Code: I50.9 Diagnosis: Secondary (7) Renal insufficiency ICD Code: N28.9 Diagnosis: Secondary (8) Warfarin-induced coagulopathy ICD Code: D69.9 Diagnosis: Principal (9) Rectal bleed ICD Code: K62.5 Diagnosis: Principal (10) Supratherapeutic INR ICD Code: R79.1 Diagnosis: Principal Procedures see hospital course Brief History - From Admission This is a pleasant 76 y/o Male who came to Emergency room sent by his Half[facility] with Rectal bleed started this morning at 11:30 AM, patient was found stable, no distress on admission, requires a lot of assistance he is on Warfarin for Atrial Fibrillation with RVR, as we know the patient has Chronic Warfarin intake, Atrial Fibrillation, Thrombocytopenia, Anxiety disorder, CHF, Depression , CAD, status post Pacemaker placement, COPD, GERD, Diverticulitis status post Colonoscopy, Hiatal hernia, Chronic Low back pain. TIA, seen in the room in the presence of his Partner Mr. Rl Escobar he has also Obesity, Multiple ecchymotic lesions on four extremities, as per nurse continue active GI Bleed will need Hemoglobin and hematocrit every six hours. CBC/BMP: 11/08/16 0454 11/08/16 0454 Significant Findings Laboratory Tests Test 11/06/16 11/06/16 11/07/16 11/08/16 08:40 13:40 04:37 04:54 Red Blood Count 3.59 MIL/MM3 3.44 MIL/MM3 3.34 MIL/MM3 (4.50-5.90) (4.50-5.90) (4.50-5.90) Hemoglobin 10.4 GM/DL 10.4 GM/DL 9.9 GM/DL 9.6 GM/DL (13.0-17.0) (13.0-17.0) (13.0-17.0) (13.0-17.0) Hematocrit 30.8 % 29.8 % 29.3 % (39.0-51.0) (39.0-51.0) (39.0-51.0) Red Cell Distribution Width 18.3 % 17.5 % 17.5 % (11.6-17.2) (11.6-17.2) (11.6-17.2) Platelet Count 89 TH/MM3 76 TH/MM3 68 TH/MM3 (150-450) (150-450) (150-450) Neutrophils (%) (Auto) 72.5 % 74.2 % (16.0-70.0) (16.0-70.0) Monocytes (%) (Auto) 8.7 % (0.0-8.0) Platelet Estimate LOW (NORMAL) LOW (NORMAL) Polychromasia 2.0 % (0.0-1.9) Ovalocytes 1+ (NORMAL) Potassium Level 3.1 MEQ/L (3.5-5.1) Carbon Dioxide Level 34.4 MEQ/L 33.0 MEQ/L 32.2 MEQ/L (21.0-32.0) (21.0-32.0) (21.0-32.0) Estimat Glomerular Filtration 61 ML/MIN (>89) 75 ML/MIN (>89) Rate Calcium Level 8.1 MG/DL 8.3 MG/DL 8.3 MG/DL (8.5-10.1) (8.5-10.1) (8.5-10.1) Phosphorus Level 2.3 MG/DL (2.5-4.9) Total Bilirubin 1.6 MG/DL (0.2-1.0) Total Protein 5.5 GM/DL (6.4-8.2) Albumin 2.6 GM/DL (3.4-5.0) White Blood Count 11.2 TH/MM3 11.3 TH/MM3 (4.0-11.0) (4.0-11.0) Neutrophils # (Auto) 8.3 TH/MM3 (1.8-7.7) Imaging Last Impressions Chest X-Ray 11/07/16 0000 Signed Impressions: Service Date/Time: Monday, November 07, 2016 03:32 - CONCLUSION: Increasing left lower lung consolidation. Gary Sandoval MD Abdomen/Pelvis CT 11/07/16 0000 Signed Impressions: Service Date/Time: Monday, November 07, 2016 16:21 - CONCLUSION: 1. No evidence of malignancy within the abdomen or pelvis. 2. Multiple intra-abdominal wall hernias as above. There is a right spigelian hernia containing colon and 2 ventral hernias containing small bowel. No obstruction. 3. Mild sigmoid colon diverticulosis without acute inflammatory changes. 4. Aorto iliac atherosclerosis. No aneurysm. 5. Volume loss and patchy consolidation of the visualized left lung base. 6. 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 Salvatore Doe MD PE at Discharge GENERAL: in NAD CARDIOVASCULAR: Regular rate and rhythm without murmurs, gallops, or rubs. RESPIRATORY: + mild diffuse exp wheezing. No accessory muscle use. R 18. GASTROINTESTINAL: Abdomen soft, non-tender, nondistended. MUSCULOSKELETAL: No cyanosis, or edema. BACK: Nontender without obvious deformity. No CVA tenderness. Pt update on day of discharge patient was very upset that he was not discharge yesterday. He stated he always has wheezing and that's why he's on prednisone. patient stated he never had SOB and that in the morning when he wakes up he always feels a little SOB that resolved with nebulizer. Patient denied any cough. Per patient's nurse he did very well yesterday afternoon and that he only wheeze in morning but it resolves after that. Patient has not had any bloody stools. He denied any pain. Hospital Course GI bleed -patient p/w GI bleed and was admitted to ICU. -he was given transfusion with PRBC and responded well to transfusion. -he was put on protonix. -GI consulted and EGD and colonoscopy done. -s/p EGD and colonoscopy few diverticulosis in sigmoid, small polyps in the ascending colon removed by snare, small internal hemorrhoids, and gastritis. -patient was stable through hospital course and H/H stabilized. Pe Dr. Lee he can restart Coumadin and f/u with them as outpatient. weight loss -per GI recommend CT scan. -CT scan did not show any cancerous lesions. Hypovolemic Shock -due to GI bleed. -fluid resuscitation and IVFs given in ICU in which he stabilized. chronic coagulopathy -was on coumadin. -held due to GI bleed. -then restarted after scope since no active bleed. COPD - not exacerbated -due to chronic wheezing continue with his home dose of prednisone and nebulizer. Acute blood loss anemia -due to GI bleed. -see above. Acute on chronic respiratory failure -patient has increase in SOB most likely due to CHF exacerbation. -he was give a dose of lasix and neb with improvement. - restart home lasix when vital was stable. acute CHF -restart home medication when vital was stable and no longer hypotensive. He did well. Pt Condition on Discharge: Stable Discharge Disposition: Discharge to SNF Discharge Time: > 30 minutes Discharge Instructions DIET: Follow Instructions for: Heart Healthy Diet, Coumadin (Warfarin) Diet Activities you can perform: Regular-No Restrictions Follow up Referrals: Gastroenterology - 2 Weeks with Luis Longoria MD PCP Follow-up - 2-3 Days New Medications: Pantoprazole (Protonix) 40 Mg Tab 40 MG PO DAILY Reflux #30 Ref 0 TAB Docusate Sodium (Dok) 100 Mg Cap 100 MG PO Q12H Constipation #30 Ref 0 CAP Continued Medications: Albuterol 18 GM Inh (Ventolin Hfa 18 GM Inh) 90 Mcg/Act Aer 2 PUFF INH Q4HR PRN SHORTNESS OF BREATH #1 Ref 0 INHALER Amiodarone (Amiodarone) 200 Mg Tab 200 MG PO DAILY Regulate Heart Beat #30 Ref 0 TAB Atorvastatin (Atorvastatin) 10 Mg Tab 10 MG PO HS Cholesterol Management #30 Ref 0 TAB Budesonide-Formoterol Inh (Symbicort Inh) 160-4.5 Mcg/Act Aero 2 PUFF INH Q12HR copd #1 Ref 0 INHALER Calcium Carbonate-Cholecalciferol (Calcium 500+D) 500-200 Mg-Unit Tab 1 TAB PO BID TAB Carvedilol (Coreg) 12.5 Mg Tab 6.25 MG PO BID a-fib Days 30 Ref 0 TAB Clonazepam (Clonazepam) 0.5 Mg Tab 0.5 MG PO BID #20 Ref 0 TAB (This prescription has been renewed) Escitalopram (Escitalopram) 10 Mg Tab 10 MG PO DAILY Depression Control #30 Ref 0 TAB Furosemide (Furosemide) 40 Mg Tab 40 MG PO DAILY DIURESIS #30 Ref 0 TAB Hydrocodone-Acetaminophen (Hydrocodone-Acetaminophen) 5-300 Mg Tab 1 TAB PO Q6HR PRN PAIN #20 Ref 0 TAB (This prescription has been renewed) Ipratropium-Albuterol Neb (Duoneb) 0.5-2.5 Mg/3 Ml Neb 1 NEBULE INH Q6HR NEB PRN SHORTNESS OF BREATH #120 Ref 0 NEBULE Multiple Vitamins W/ Minerals (Thera-M) 1 Tab 1 TAB PO DAILY Nutritional Supplement Ref 0 TAB Omeprazole (Omeprazole) 20 Mg Tab 20 MG PO DAILY GERD #30 Ref 0 TAB Potassium Chloride Microencaps (Klor-Con M20) 20 Meq Tab 20 MEQ PO Q12HR Electrolyte Replacement #60 Ref 0 TAB Prednisone (Prednisone) 20 Mg Tab 20 MG PO DAILY COPD Ref 0 TAB Tamsulosin (Tamsulosin) 0.4 Mg Cap 0.4 MG PO HS Manage Prostate Problems #30 Ref 0 CAP Warfarin (Warfarin) 2 Mg Tab 2 MG PO DAILY Blood Clot Prevention #30 Ref 0 TAB Pura Ayala MD Nov 08, 2016 10:39
== END 2016-11-08 18:35 | DRG 377 ==
LOC: NEPE 13:02 → NEDA 15:26 → HIMN 17:40
PROVIDERS: ADMIT Family Medicine; ATTEND Family Medicine
PROC: 30233K1 Transfusion of Nonautologous Frozen Plasma into Peripheral Vein, Percutaneous Approach (ICD-10-PCS; 2016-11-03)
PROC: 30233N1 Transfusion of Nonautologous Red Blood Cells into Peripheral Vein, Percutaneous Approach (ICD-10-PCS; 2016-11-03)
PROC: 05HM33Z Insertion of Infusion Device into Right Internal Jugular Vein, Percutaneous Approach (ICD-10-PCS; 2016-11-03)
PROC: 0DB68ZX Excision of Stomach, Via Natural or Artificial Opening Endoscopic, Diagnostic (ICD-10-PCS; principal; 2016-11-05 13:40)
PROC: 0DBK8ZX Excision of Ascending Colon, Via Natural or Artificial Opening Endoscopic, Diagnostic (ICD-10-PCS; 2016-11-05 13:40)
DX: K92.1 Melena (principal); R57.1 Hypovolemic shock; J96.20 Acute and chronic respiratory failure, unspecified whether with hypoxia or hypercapnia; D69.3 Immune thrombocytopenic purpura; D62 Acute posthemorrhagic anemia; I50.9 Heart failure, unspecified; I42.9 Cardiomyopathy, unspecified; E66.9 Obesity, unspecified; K64.8 Other hemorrhoids; K57.30 Diverticulosis of large intestine without perforation or abscess without bleeding; D12.2 Benign neoplasm of ascending colon; F17.210 Nicotine dependence, cigarettes, uncomplicated; Z71.3 Dietary counseling and surveillance; Z68.31 Body mass index [BMI] 31.0-31.9, adult; I25.10 Atherosclerotic heart disease of native coronary artery without angina pectoris; I48.91 Unspecified atrial fibrillation; R79.1 Abnormal coagulation profile; K29.70 Gastritis, unspecified, without bleeding; K21.9 Gastro-esophageal reflux disease without esophagitis; J44.9 Chronic obstructive pulmonary disease, unspecified; E78.5 Hyperlipidemia, unspecified; G47.33 Obstructive sleep apnea (adult) (pediatric); I10 Essential (primary) hypertension; F32.9 Major depressive disorder, single episode, unspecified; T45.515A Adverse effect of anticoagulants, initial encounter; F41.9 Anxiety disorder, unspecified; Z66 Do not resuscitate; K44.9 Diaphragmatic hernia without obstruction or gangrene; N28.9 Disorder of kidney and ureter, unspecified; Z86.73 Personal history of transient ischemic attack (TIA), and cerebral infarction without residual deficits; Z79.01 Long term (current) use of anticoagulants; Z86.718 Personal history of other venous thrombosis and embolism; Z95.810 Presence of automatic (implantable) cardiac defibrillator; I25.2 Old myocardial infarction; Z88.8 Allergy status to other drugs, medicaments and biological substances
CPT/HCPCS: 36430; 36556; 36600; 71010; 74177; 80048; 80053; 80076; 82805; 83036; 83605; 83735; 83880; 84100; 84439; 84443; 85014; 85018; 85025; 85027; 85610; 86850; 86900; 86901; 86920; 86927; 87493; 88305; 94150; 94640; 94664; 96372; C9113; J1940; J2250; J2930; J3430; J7030; J7040; J7512; P9016; P9017; Q9963; Q9967

== ENCOUNTER 2016-11-13 11:40 | Inpatient (IN) | payer MEDICARE, BC ==
[~2016-11-13] VITALS: Ht 175.3 cm; Wt 106.2 kg
[2016-11-13] VITALS (15 sets, daily range): BP systolic 60–115; BP diastolic 39–59; PULSE 60–122; RESP 20–38; TEMP 98.1–98.8; O2SAT 92–100
[~2016-11-13 11:40] MED LIST changes: -AUGM12TA2 PO; +CALC1TAB42 PO; -CALC1TAB87 PO; -CHERSYP2 PO; +DOCU1CAP39 PO; +PROT40TA PO; +THERTAB17 PO
[2016-11-13] MEDS ORDERED: TERBUTALINE INJ 1 MG/ML AMP SQ PRN ×2 (12:15)
[2016-11-13] MEDS ORDERED: DOPamine INJ PREMIX 500 ML IV SCH (12:15)
[2016-11-13] MEDS: NOREPINEPHRINE-DEXTROSE DRIP 250 ML IV SCH (12:23)
--- NOTE | 2016-11-13 12:24 | PD ---
HPI Chief Complaint: Respiratory Distress Time Seen by Provider: 12:08 Travel History International Travel<30 days: No Contact w/Intl Traveler<30days: No Traveled to known affect area: No History of Present Illness HPI 76-year-old male was brought in from local [place] [facility] for respiratory distress. Patient was found to have shortness of breath, trouble breathing and fever this morning. Patient has history of anemia, CAD, hypertension, atrial fibrillation, COPD, CHF, renal insufficiency. Patient was admitted for GI bleed and discharge 5 days ago. Patient was on Coumadin with Coumadin-induced coagulopathy. Patient was put back on Coumadin and discharged back to [place] [facility]. Patient has been doing well until this morning when he started having shortness of breath. EMS was called. Axilla temperature was 102. Patient was seen at rest but distress and was given 100% nonrebreathing mask and transported to ED for evaluation. Patient is lethargic and moaning frequently. Unable to get more information from the patient. PFSH Past Medical History Hx Anticoagulant Therapy: Yes (coumadin) Asthma: No Atrial Fibrillation: Yes Autoimmune Disease: Yes Blood Disorders: Yes (platelet issues - very low count hx) Anxiety: Yes Depression: Yes Heart Rhythm Problems: Yes (pacer, defibrillator; afib) Cancer: No Cardiac Catheterization: Yes (PACER BATTERY REPLACED 05/11/16) Cardiovascular Problems: Yes High Cholesterol: No Chemotherapy: No Chest Pain: No Congestive Heart Failure: Yes COPD: Yes Cerebrovascular Accident: Yes (tia) Diabetes: No Diminished Hearing: No Endocrine: No Gastrointestinal Disorders: Yes (GERD, HX DIVERTICULITIS, COLOSTOMY with reversal) GERD: Yes Glaucoma: No Genitourinary: Yes Hepatitis: No Hiatal Hernia: Yes Hypertension: Yes Immune Disorder: No Implanted Vascular Access Dvce: Yes Kidney Stones: No Musculoskeletal: Yes (back pain) Neurologic: Yes (TIA 7 months ago) Psychiatric: No Reproductive: No Respiratory: Yes (COPD) Integumentary: No Immunizations Current: Yes Myocardial Infarction: Yes Radiation Therapy: No Renal Failure: No Seizures: No Sleep Apnea: No Thyroid Disease: No Ulcer: No PNEUMOCCOCAL Vaccine (Year): 1 Past Surgical History Abdominal Surgery: Yes (RUPT. DIVERTICULUM SX/ COLOSTOMY 10/13/2014) AICD: Yes ([employer]) Body Medical Devices: pacemaker and defibrillator Cardiac Surgery: Yes (AICD IMPL.) Ear Surgery: No Endocrine Surgery: No Eye Surgery: Yes (COSME. CATARACT EXTRACT) Genitourinary Surgery: No Gynecologic Surgery: No Joint Replacement: No Oral Surgery: No Pacemaker: Yes (W/AICD) Thoracic Surgery: No Other Surgery: Yes (pacemaker defib,colostomy/reversal, Abdominal Sx) Social History Alcohol Use: No Tobacco Use: Yes (3-4 CIGARETTES/DAY) Substance Use: No Allergies-Medications (Allergen,Severity, Reaction): Coded Allergies: Quinidex Extentab (Verified Allergy, Severe, PLATELETT COUNT DECREASES/ BLINDNESS, 11/02/16) Niacin (Verified Allergy, Intermediate, RASH/ITCHING, 11/02/16) MRI PRECAUTION (Verified Adverse Reaction, Severe, NON MRI COMPATIBLE DEFIB 10/22/15 LRS, 11/02/16) *MDRO Multi-Drug Resistant Organism (Verified Adverse Reaction, Unknown, ESBL, 11/02/16) ESBL E. coli (abd. 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 coli (urine) - 03/08/16, 09/28/16, 10/19/16 Reported Meds & Prescriptions Reported Meds & Active Scripts Active Protonix (Pantoprazole Sodium) 40 Mg Tab 40 Mg PO DAILY Dok (Docusate Sodium) 100 Mg Cap 100 Mg PO Q12H Hydrocodone-Acetaminophen 5-300 Mg Tab 1 Tab PO Q6HR PRN Clonazepam 0.5 Mg Tab 0.5 Mg PO BID Warfarin 2 Mg Tab 2 Mg PO DAILY Duoneb (Ipratropium-Albuterol Neb) 0.5-2.5 Mg/3 Ml Neb 1 Nebule INH Q6HR NEB PRN Coreg (Carvedilol) 12.5 Mg Tab 6.25 Mg PO BID 30 Days Symbicort Inh (Budesonide/Formoterol Fumarate) 160-4.5 Mcg/Act Aero 2 Puff INH Q12HR Reported Calcium 500+D (Calcium Carbonate-Cholecalciferol) 500-200 Mg-Unit Tab 1 Tab PO BID Prednisone 20 Mg Tab 20 Mg PO DAILY Thera-M (Multiple Vitamins W/ Minerals) 1 Tab 1 Tab PO DAILY Ventolin Hfa 18 GM Inh (Albuterol Sulfate) 90 Mcg/Act Aer 2 Puff INH Q4HR PRN Tamsulosin (Tamsulosin HCl) 0.4 Mg Cap 0.4 Mg PO HS Omeprazole 20 Mg Tab 20 Mg PO DAILY Klor-Con M20 (Potassium Chloride Microencaps) 20 Meq Tab 20 Meq PO Q12HR Furosemide 40 Mg Tab 40 Mg PO DAILY Escitalopram (Escitalopram Oxalate) 10 Mg Tab 10 Mg PO DAILY Atorvastatin (Atorvastatin Calcium) 10 Mg Tab 10 Mg PO HS Amiodarone (Amiodarone HCl) 200 Mg Tab 200 Mg PO DAILY Review of Systems General / Constitutional: No: Fever Eyes: No: Visual changes HENT: No: Headaches Cardiovascular: No: Chest Pain or Discomfort Respiratory: Positive: Shortness of Breath Gastrointestinal: No: Abdominal Pain Genitourinary: No: Dysuria Musculoskeletal: No: Pain Skin: No Rash Neurologic: No: Weakness Psychiatric: No: Depression Endocrine: No: Polydipsia Hematologic/Lymphatic: No: Easy Bruising Physical Exam Narrative GENERAL: Well-nourished, well-developed patient. SKIN: Warm and dry. HEAD: Normocephalic. EYES: No scleral icterus. No injection or drainage. NECK: Supple, trachea midline. No JVD or lymphadenopathy. CARDIOVASCULAR: Regular rate and rhythm without murmurs, gallops, or rubs. RESPIRATORY: Patient's tachypneic. Patient has rhonchi bilaterally. No wheezes. GASTROINTESTINAL: Abdomen soft, non-tender, nondistended. MUSCULOSKELETAL: No cyanosis, or edema. BACK: Nontender without obvious deformity. No CVA tenderness. Neurologic exam: Patient is lethargic and moaning. Patient moves all extremity well. No obvious focal neurological deficit. Data Data Last Documented VS Vital Signs Date Time Temp Pulse Resp B/P Pulse Ox O2 Delivery O2 Flow Rate FiO2 11/13/16 13:13 100 30 91/56 97 11/13/16 12:30 BiPAP 11/13/16 12:15 98.8 11/13/16 11:58 100 Orders Electrocardiogram (11/13/16 12:09) Complete Blood Count With Diff (11/13/16 12:09) Comprehensive Metabolic Panel (11/13/16 12:09) Creatine Kinase (Cpk) (11/13/16 12:09) Troponin I (11/13/16 12:09) B-Type Natriuretic Peptide (11/13/16 12:09) Prothrombin Time / Inr (Pt) (11/13/16 12:09) Act Partial Throm Time (Ptt) (11/13/16 12:09) Arterial Blood Gas (Abg) (11/13/16 12:09) Blood Culture (11/13/16 12:09) Urinalysis - C+S If Indicated (11/13/16 12:09) Magnesium (Mg) (11/13/16 12:09) Thyroid Stimulating Hormone (11/13/16 12:09) Phosphorus (Po4) (11/13/16 12:09) Chest, Single Ap (11/13/16 12:09) Iv Access Insert/Monitor (11/13/16 12:09) Ecg Monitoring (11/13/16 12:09) Oximetry (11/13/16 12:09) Urinary Catheter Insert/Apply (11/13/16 12:09) Norepinephrine-Dextrose Drip (Levophed-D (11/13/16 12:15) Terbutaline Inj (Brethine Inj) (11/13/16 12:15) Lactic Acid Sepsis Protocol (11/13/16 12:09) Dopamine Inj Premix (Dopamine Inj Premix (11/13/16 12:15) Terbutaline Inj (Brethine Inj) (11/13/16 12:15) Vancomycin Inj (Vancomycin Inj) (11/13/16 12:45) Piperacil-Tazo 3.375 Gm Premix (Zosyn 3. (11/13/16 12:45) Sodium Chlor 0.9% 1000 Ml Inj (Ns 1000 M (11/13/16 13:15) Admit Order (Ed Use Only) (11/13/16 13:17) Labs Laboratory Tests Test 11/13/16 11/13/16 11/13/16 11/13/16 12:00 12:18 12:40 12:54 White Blood Count 7.9 TH/MM3 Red Blood Count 4.20 MIL/MM3 Hemoglobin 12.0 GM/DL Hematocrit 38.3 % Mean Corpuscular Volume 91.2 FL Mean Corpuscular Hemoglobin 28.5 PG Mean Corpuscular Hemoglobin 31.3 % Concent Red Cell Distribution Width 20.5 % Platelet Count 106 TH/MM3 Mean Platelet Volume 8.4 FL Neutrophils (%) (Auto) 92.3 % Lymphocytes (%) (Auto) 4.4 % Monocytes (%) (Auto) 0.7 % Eosinophils (%) (Auto) 0.4 % Basophils (%) (Auto) 2.2 % Neutrophils # (Auto) 7.3 TH/MM3 Lymphocytes # (Auto) 0.3 TH/MM3 Monocytes # (Auto) 0.1 TH/MM3 Eosinophils # (Auto) 0.0 TH/MM3 Basophils # (Auto) 0.2 TH/MM3 CBC Comment AUTO DIFF Prothrombin Time 21.7 SEC Prothromb Time International 1.9 RATIO Ratio Activated Partial 23.3 SEC Thromboplast Time Sodium Level 141 MEQ/L Potassium Level 4.2 MEQ/L Chloride Level 100 MEQ/L Carbon Dioxide Level 29.2 MEQ/L Anion Gap 12 MEQ/L Blood Urea Nitrogen 23 MG/DL Creatinine 1.20 MG/DL Estimat Glomerular Filtration 59 ML/MIN Rate Random Glucose 71 MG/DL Calcium Level 8.9 MG/DL Phosphorus Level 0.6 MG/DL Magnesium Level 1.4 MG/DL Total Bilirubin 1.2 MG/DL Aspartate Amino Transf 30 U/L (AST/SGOT) Alanine Aminotransferase 47 U/L (ALT/SGPT) Alkaline Phosphatase 114 U/L Total Creatine Kinase 20 U/L Troponin I 0.02 NG/ML B-Type Natriuretic Peptide 351 PG/ML Total Protein 6.1 GM/DL Albumin 2.7 GM/DL Thyroid Stimulating Hormone 1.020 uIU/ML 3rd Gen Urine Color YELLOW Urine Turbidity CLEAR Urine pH 6.0 Urine Specific [place]ino 1.010 Urine Protein NEG mg/dL Urine Glucose (UA) NEG mg/dL Urine Ketones NEG mg/dL Urine Occult Blood NEG Urine Nitrite NEG Urine Bilirubin NEG Urine Leukocyte Esterase NEG Urine RBC 0-3 /hpf Urine WBC 0-2 /hpf Urine Squamous Epithelial 0-5 /hpf Cells Urine Bacteria RARE /hpf Urine Yeast (Budding) FEW Microscopic Urinalysis Comment CULT NOT INDICATED Blood Gas Puncture Site RT BRACHIAL Blood Gas Patient Temperature 98.6 Blood Gas HCO3 28 mmol/L Blood Gas Base Excess 4.4 mmol/L Blood Gas Oxygen Saturation 97 % Arterial Blood pH 7.50 Arterial Blood Partial 36 mmHG Pressure CO2 Arterial Blood Partial 348 mmHG Pressure O2 Arterial Blood Oxygen Content 17.3 Vol % Arterial Blood 1.9 % Carboxyhemoglobin Arterial Blood Methemoglobin 1.3 % Blood Gas Hemoglobin 12.1 G/DL Oxygen Delivery Device BIPAP Blood Gas Ventilator Setting [id number]/[id number] Blood Gas Inspired Oxygen 100 % Lactic Acid Level 1.8 mmol/L MDM Medical Decision Making Medical Screen Exam Complete: Yes Emergency Medical Condition: Yes Interpretation(s) 13 39 PM. Chest x-ray shows no acute consolidation. Cardiomegaly. CBC WBC 7.9. Hemoglobin 12.0 hematocrit 30.3. Platelet 106. 92 neutrophil. BUN 23. Glucose 71. Phosphorus 0.6. Magnesium 1.4. Total bili 1.2. BNP 351. Lactic acid 1.8. INR 1.9. UA negative. Differential Diagnosis Differential diagnosis including acute exacerbation of CHF, COPD, pneumonia, sepsis. Narrative Course 76-year-old male with respiratory distress. History of COPD and CHF. Patient has a fever today. Patient's hypotensive. Septic workup in progress. Patient has rhonchi diffusely both lung and history of CHF, no IV bolus given. Levophed drip started to keep MAP above 65. Patient was given BiPAP. Spoke with family and POA. Patient is a full code. Vancomycin 1 g IV. Zosyn 3.375 g IV. Normal saline solution 1 L IV bolus. D5 1 half normal saline solution at 100 cc an hour. Critical Care Narrative Aggregate critical care time was 60 minutes. Time to perform other separately billable procedures was not included in the critical care time. My time did not include minutes spent treating any other patients simultaneously or on activities that did not directly contribute to the patient's treatment. The services I provided to this patient were to treat and/or prevent clinically significant deterioration that could result in: I provided critical care services requiring my management, as noted below: Chart data review, documentation time, medication orders and management, vital sign assessments/reviewing monitor data, ordering and reviewing lab tests, ordering and interpreting/reviewing x-rays and diagnostic studies, care of the patient and discussion of the patient with the admitting physicians. Procedures Procedure Narrative CENTRAL VENOUS LINE: The site was prepped with Betadine and sterilely draped. It was infiltrated with 1% lidocaine plain. The deep vein was cannulated using normal Seldinger technique. A triple lumen central line was placed in the right femoral vein site and secured with simple interrupted suture. The site was sterilely dressed. The patient tolerated the procedure well. Diagnosis Primary Impression: Septic shock Additional Impression: Respiratory failure Qualified Code: J96.01 - Acute respiratory failure with hypoxia Sylvester Schultz MD Nov 13, 2016 12:23
[2016-11-13 12:36] LABS: AUTOMATED NEUTROPHIL # 7.3 TH/MM3 (1.8-7.7); BASOPHIL # 0.2 TH/MM3 (0-0.2); BASOPHIL % 2.2 % (0.0-2.0); EOSINOPHIL % 0.4 % (0.0-4.0); HEMATOCRIT 38.3 % (39.0-51.0); LYMPH % 4.4 % (9.0-44.0); LYMPHOCYTE # 0.3 TH/MM3 (1.0-4.8); MEAN CELL VOLUME 91.2 FL (80.0-100.0); MEAN CORPUSCULAR HEMOGLOBIN 28.5 PG (27.0-34.0); MEAN CORPUSCULAR HGB CONC 31.3 % (32.0-36.0); MONO % 0.7 % (0.0-8.0); NEUT % 92.3 % (16.0-70.0); PLATELET COUNT 106 TH/MM3 (150-450); RED CELL DISTRIBUTION WIDTH 20.5 % (11.6-17.2); WHITE BLOOD COUNT 7.9 TH/MM3 (4.0-11.0)
[2016-11-13 12:37] LABS: HEMO FLAGS AUTO DIFF
[2016-11-13 12:41] LABS: BLOOD, URINE NEG (NEG); GLUCOSE,URINE NEG (NEG); KETONE, URINE NEG (NEG); NITRITE,URINE NEG (NEG)
[2016-11-13 12:42] LABS: BLOOD GAS BASE EXCESS 4.4 mmol/L (-2-2); BLOOD GAS CARBOXYHEMOGLOBIN 1.9 % (0-4); BLOOD GAS HCO3 28 mmol/L (22-26); BLOOD GAS METHEMOGLOBIN 1.3 % (0-2); BLOOD GAS O2 HGB SATURATION 97 % (90-100); BLOOD GAS OXYGEN CONTENT 17.3 Vol % (12.0-20.0); BLOOD GAS PCO2 36 mmHG (38-42); BLOOD GAS PO2 348 mmHG (61-120); BLOOD GAS TOTAL HGB 12.1 G/DL (12.0-16.0); TEMP CORR TO 98.6
[2016-11-13 12:43] LABS: CRITICAL VALUE NO; DRAW SITE RT BRACHIAL; FIO2 100 %; NUMBER OF ARTERIAL PUNCTURES 1; OXYGEN DEVICE BIPAP; STAT YES; VENT SETTINGS IPAP15/EPAP5
[2016-11-13 12:43] LABS: CHLORIDE 100 MEQ/L (98-107); POTASSIUM 4.2 MEQ/L (3.5-5.1); SODIUM (NA) 141 MEQ/L (136-145)
[2016-11-13] MEDS ORDERED: VANCOMYCIN INJ 1,000 MG in SODIUM CHLOR 0.9% 250 ML INJ 250 ML IV ONE (12:45)
[2016-11-13] MEDS ORDERED: PIPERACIL-TAZO 3.375 GM PREMIX 50 ML IV ONE (12:45)
[2016-11-13 12:47] LABS: ANION GAP 12 MEQ/L (5-15); APTT (PATIENT) 23.3 SEC (24.3-30.1); BICARBONATE 29.2 MEQ/L (21.0-32.0); BLOOD UREA NITROGEN 23 MG/DL (7-18); INTERNATIONAL NORMALIZED RATIO 1.9 RATIO; MAGNESIUM 1.4 MG/DL (1.5-2.5); PROTHROMBIN TIME - PATIENT 21.7 SEC (9.8-11.6)
[2016-11-13 12:50] LABS: ALT (GPT) 47 U/L (12-78); AST (GOT) 30 U/L (15-37); GLOMERULAR FILTRATION RATE 59 ML/MIN (>89)
[2016-11-13 12:51] LABS: TOTAL BILIRUBIN ADULT 1.2 MG/DL (0.2-1.0)
[2016-11-13 12:51] LABS: URINE COLOR YELLOW (YELLW/STRAW)
[2016-11-13 12:52] LABS: BACTERIA, URINE RARE /hpf; COMMENT (UR) CULT NOT INDICATED; CULTURE IF INDICATED CULT NOT INDICATED; RBC, URINE 0-3 /hpf (0-3); SQUAMOUS EPITHELIAL CELL URINE 0-5 /hpf (0-5); WBC, URINE 0-2 /hpf (0-5)
[2016-11-13 12:52] LABS: ALKALINE PHOSPHATASE 114 U/L (45-117)
[2016-11-13 12:54] LABS: CREATINE KINASE 20 U/L (39-308)
[2016-11-13] MEDS ORDERED: ACETAMINOPHEN/HYDROcodone 325 MG/5 MG TAB PO PRN (13:15)
[2016-11-13] MEDS ORDERED: GLUCAGON 1 MG/ML VIAL OTHER PRN (13:15)
[2016-11-13] MEDS ORDERED: ACETAMINOPHEN 325 MG TAB PO PRN (13:15)
[2016-11-13] MEDS ORDERED: MISCELLANEOUS NURSING INFORMATION XX SCH ×2 (13:15→16:30)
[2016-11-13] MEDS ORDERED: SODIUM CHLOR 0.9% 1000 ML INJ 1,000 ML IV ONE ×2 (13:15→16:00)
[2016-11-13] MEDS ORDERED: DEXTROSE 50% IN WATER 50 ML VIAL(D50) IV PUSH PRN (13:15)
[2016-11-13] MEDS ORDERED: SENNOSIDES 8.6 MG TAB PO PRN (13:15)
[2016-11-13] MEDS ORDERED: CHLORHEXIDINE GLUCONATE 2 % 1 PACK (2 CLOTHS) TOP PRN ×2 (13:15→16:30)
[2016-11-13] MEDS ORDERED: ONDANSETRON HCL 4 MG/2 ML VIAL IV PRN (13:15)
--- NOTE | 2016-11-13 13:31 | RADHPO ---
EXAM DATE/TIME: 11/13/2016 12:47 [facility] COMPARISON: CHEST SINGLE AP, November 07, 2016, 3:32. EXTERNAL COMPARISON : INDICATIONS : Respiratory distress. MEDICAL HISTORY : None. SURGICAL HISTORY : None. ENCOUNTER: Initial ACUITY: 1 day PAIN SCORE: Non-responsive. LOCATION: Bilateral chest FINDINGS: A single portable frontal view of the chest shows mild cardiomegaly. Pulmonary vasculature is unremar kable. Atelectasis is seen within the left lung base. No discrete infiltrate. No effusions. Pacing de vice overlies the left chest. CONCLUSION: Cardiomegaly with mild left basilar atelectasis. No infiltrate or effusion. Gary Albrecht Jr., MD on November 13, 2016 at 13:27 Board Certified Radiologist. This report was verified electronically.
[2016-11-13] MEDS ORDERED: DEXTROSE 50% IN WATER 50 ML VIAL(D50) IV PUSH ONE (13:45)
[2016-11-13] MEDS ORDERED: DEXT 5%-NACL 0.45% 1000 ML INJ 1,000 ML IV SCH (13:45)
[2016-11-13] MEDS: SODIUM CHLOR 0.9% 1000 ML INJ 1,000 ML IV SCH ×2 (13:58→18:33)
[2016-11-13 14:03] LABS: BANDS 25 % (0-6); EOSINOPHILS 1 % (0-4); NEUTROPHIL # MANUAL DIFF 7.6 TH/MM3 (1.8-7.7); POLYS (SEG NEUTROPHILS) 71 % (16-70); WBC DIFF SAMPLE 100
[2016-11-13 14:04] LABS: PLATELET ESTIMATE SMEAR LOW (NORMAL); PLATELET MORPHOLOGY NORMAL (NORMAL); SCAN/DIFF FINAL DIFF MANUAL
[2016-11-13] MEDS: MAGNESIUM SULFATE 1 GM PREMIX 100 ML IV SCH ×4 (14:20→17:00)
--- NOTE | 2016-11-13 15:36 | HHI.HP ---
[facility] Service Critical Care Medicine Primary Care Physician Srinivas Mehta MD Admission Diagnosis septic shock. Respiratory failure. Diagnosis: (1) Respiratory failure Diagnosis: Principal (2) Severe sepsis with acute organ dysfunction Diagnosis: Principal (3) Hypomagnesemia Diagnosis: Principal (4) Hypophosphatemia Diagnosis: Principal (5) Hyperlipidemia Diagnosis: Principal (6) Anemia, normocytic normochromic Diagnosis: Principal (7) Benign prostatic hyperplasia Diagnosis: Principal (8) Chronic kidney disease Diagnosis: Principal (9) A-fib Diagnosis: Principal (10) Congestive heart failure Diagnosis: Principal Chief Complaint: Shortness of breath Travel History International Travel<30 Days: No Contact w/Intl Traveler <30 Da: No Traveled to Known Affected Are: No Sepsis Criteria SIRS Criteria (2 or more): RR > 20 or PaCO2 < 32 Sepsis Criteria (SIRS+source): Infect source susp/known Severe Sepsis (+one): Hypotension Criteria Outcome: Meets severe sepsis criteria History of Present Illness 76-year-old male. Date of admission 11/13/2016. Past medical history includes chronic warfarin usage, anxiety disorder, coronary artery disease, chronic atrial fibrillation/rate control, chronic low back pain, cardiomyopathy , cholelithiasis, chronic compression fractures of thoracic vertebrae, chronic constipation, COPD, depression, diverticulosis, hypertension, dyslipidemia, ITP , macrocytosis, TERRENCE, esophagitis. This is the patient's fourth hospitalizations since August 2016. Most recently patient was admitted for GI bleed. Patient is not felt well since discharge. He presents from his ECF after waking up acutely short of breath with pyrexia and nonproductive cough Patient was on Coumadin with Coumadin-induced coagulopathy. Patient was put back on Coumadin and discharged back to skilled nursing. Patient was seen at rest but distress and was given 100% nonrebreathing mask and transported to ED for evaluation. Chest x-ray revealed possible left lower lobe infiltrate. Patient became acutely hypotensive in the ED a central line was placed femorally by ED physician. Patient*norepinephrine drip and given 1 L normal saline bolus. Lactate within normal limits. He is transported to [facility] for evaluation at this facility. We are asked to admit this patient. Review of Systems Constitutional: COMPLAINS OF: Fatigue, Fever, DENIES: Weight gain, Weight loss Endocrine: DENIES: Polydipsia, Polyuria, Polyphagia Eyes: DENIES: Blurred vision, Double Vision Ears, nose, mouth, throat: DENIES: Hearing loss Respiratory: COMPLAINS OF: Shortness of breath, DENIES: Apneas, Sputum production Cardiovascular: COMPLAINS OF: Dyspnea on Exertion, DENIES: Chest pain, Lower Extremity Edema Gastrointestinal: COMPLAINS OF: Abdominal pain Genitourinary: DENIES: Testicular Swelling Musculoskeletal: COMPLAINS OF: Back pain, DENIES: Joint pain Integumentary: DENIES: Rash Hematologic/lymphatic: COMPLAINS OF: Bruising Immunologic/allergic: DENIES: Eczema Neurologic: DENIES: Headache Psychiatric: DENIES: Anxiety, Confusion, Mood changes Past Family Social History Allergies: Coded Allergies: Quinidex Extentab (Verified Allergy, Severe, PLATELETT COUNT DECREASES/ BLINDNESS, 11/02/16) Niacin (Verified Allergy, Intermediate, RASH/ITCHING, 11/02/16) MRI PRECAUTION (Verified Adverse Reaction, Severe, NON MRI COMPATIBLE DEFIB 10/22/15 LRS, 11/02/16) *MDRO Multi-Drug Resistant Organism (Verified Adverse Reaction, Unknown, ESBL, 11/02/16) ESBL E. coli (abd. 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 coli (urine) - 03/08/16, 09/28/16, 10/19/16 Past Medical History Chronic abdominal pain Hypogonadism History of hypertension Morbid obesity History of right lower extreme DVT 2010 Chronic kidney disease creatinine currently 1.2 Anticoagulation use Anxiety disorder Coronary artery disease Chronic atrial fibrillation Chronic low back pain Cardiomyopathy Cholelithiasis Chronic compression fractures thoracic vertebrae Chronic constipation COPD by diagnosis Depression NOS Diverticulosis Hypertension Dyslipidemia History of ITP Macrocytosis TERRENCE Esophagitis Past Surgical History AICD placement with battery replacement 2015 Pilonidal cyst resection Colon resection with colostomy for diverticulitis with colon perforation with takedown diverting colostomy Cataract Reported Medications Protonix (Pantoprazole Sodium) 40 Mg Tab 40 Mg PO DAILY Dok (Docusate Sodium) 100 Mg Cap 100 Mg PO Q12H Hydrocodone-Acetaminophen 5-300 Mg Tab 1 Tab PO Q6HR PRN Clonazepam 0.5 Mg Tab 0.5 Mg PO BID Warfarin 2 Mg Tab 2 Mg PO DAILY Duoneb (Ipratropium-Albuterol Neb) 0.5-2.5 Mg/3 Ml Neb 1 Nebule INH Q6HR NEB PRN Coreg (Carvedilol) 12.5 Mg Tab 6.25 Mg PO BID 30 Days Symbicort Inh (Budesonide/Formoterol Fumarate) 160-4.5 Mcg/Act Aero 2 Puff INH Q12HR Reported Calcium 500+D (Calcium Carbonate-Cholecalciferol) 500-200 Mg-Unit Tab 1 Tab PO BID Prednisone 20 Mg Tab 20 Mg PO DAILY Thera-M (Multiple Vitamins W/ Minerals) 1 Tab 1 Tab PO DAILY Ventolin Hfa 18 GM Inh (Albuterol Sulfate) 90 Mcg/Act Aer 2 Puff INH Q4HR PRN Tamsulosin (Tamsulosin HCl) 0.4 Mg Cap 0.4 Mg PO HS Omeprazole 20 Mg Tab 20 Mg PO DAILY Klor-Con M20 (Potassium Chloride Microencaps) 20 Meq Tab 20 Meq PO Q12HR Furosemide 40 Mg Tab 40 Mg PO DAILY Escitalopram (Escitalopram Oxalate) 10 Mg Tab 10 Mg PO DAILY Atorvastatin (Atorvastatin Calcium) 10 Mg Tab 10 Mg PO HS Amiodarone (Amiodarone HCl) 200 Mg Tab 200 Mg PO DAILY Active Ordered Medications Reviewed in EMR Family History Patient's mother is at age 100 of old age.. Patient's father is asbestos-related cancer. One brother is from mesothelioma. One sister of diabetes complication. Social History Single. Never smoked. No drinking. No contact with hazardous materials. Homosexual. Physical Exam Vital Signs Vital Signs Date Time Temp Pulse Resp B/P Pulse Ox O2 Delivery O2 Flow Rate FiO2 11/13/16 14:12 88 28 82/51 100 BiPAP 11/13/16 13:55 82/57 11/13/16 13:13 100 30 91/56 97 11/13/16 12:56 108 77/57 11/13/16 12:45 100 60 11/13/16 12:39 106 66/39 11/13/16 12:30 108 60/39 97 BiPAP 11/13/16 12:21 75/52 11/13/16 12:15 98.8 112 38 76/48 97 BiPAP 11/13/16 12:00 92 BiPAP 11/13/16 12:00 98.7 122 20 64/57 97 BiPAP 11/13/16 12:00 98.7 122 38 64/51 97 BiPAP 11/13/16 11:58 100 100 Physical Exam GENERAL: 76-year-old male, critically ill currently a nonrebreather mask SKIN: Warm and dry. Positive ecchymosis bilateral upper and lower extremities HEAD: Atraumatic. Normocephalic. EYES: Pupils equal and round about 3 mm bilaterally and reactive. No scleral icterus. No injection or drainage. ENT: No nasal bleeding or discharge. Mucous membranes pink and moist. NECK: Trachea midline. No JVD. CARDIOVASCULAR: IR. Accu. S1, S2. No S4. Murmurs appreciated RESPIRATORY: Transient appears sounds clear with cough. Few crackles patient left lower lobe. No wheeze. GASTROINTESTINAL: Abdomen soft, non-tender, nondistended. I Stokes bowel sounds appreciated MUSCULOSKELETAL: Extremities without significant peripheral edema. No obvious deformities. NEUROLOGICAL: Awake and alert. No obvious cranial nerve deficits. Motor grossly within normal limits. Five out of 5 muscle strength in the arms and legs. Normal speech. Laboratory Laboratory Tests Test 11/13/16 11/13/16 11/13/16 11/13/16 12:00 12:18 12:40 12:54 White Blood Count 7.9 Red Blood Count 4.20 Hemoglobin 12.0 Hematocrit 38.3 Mean Corpuscular Volume 91.2 Mean Corpuscular Hemoglobin 28.5 Mean Corpuscular Hemoglobin 31.3 Concent Red Cell Distribution Width 20.5 Platelet Count 106 Mean Platelet Volume 8.4 Neutrophils (%) (Auto) 92.3 Lymphocytes (%) (Auto) 4.4 Monocytes (%) (Auto) 0.7 Eosinophils (%) (Auto) 0.4 Basophils (%) (Auto) 2.2 Neutrophils # (Auto) 7.3 Lymphocytes # (Auto) 0.3 Monocytes # (Auto) 0.1 Eosinophils # (Auto) 0.0 Basophils # (Auto) 0.2 CBC Comment AUTO DIFF Differential Total Cells 100 Counted Neutrophils % (Manual) 71 Band Neutrophils % 25 Lymphocytes % 1 Monocytes % 2 Eosinophils % 1 Neutrophils # (Manual) 7.6 Differential Comment FINAL DIFF MANUAL Platelet Estimate LOW Platelet Morphology Comment NORMAL Basophilic Stippling FAINT Prothrombin Time 21.7 Prothromb Time International 1.9 Ratio Activated Partial 23.3 Thromboplast Time Sodium Level 141 Potassium Level 4.2 Chloride Level 100 Carbon Dioxide Level 29.2 Anion Gap 12 Blood Urea Nitrogen 23 Creatinine 1.20 Estimat Glomerular Filtration 59 Rate Random Glucose 71 Calcium Level 8.9 Phosphorus Level 0.6 Magnesium Level 1.4 Total Bilirubin 1.2 Aspartate Amino Transf 30 (AST/SGOT) Alanine Aminotransferase 47 (ALT/SGPT) Alkaline Phosphatase 114 Total Creatine Kinase 20 Troponin I 0.02 B-Type Natriuretic Peptide 351 Total Protein 6.1 Albumin 2.7 Thyroid Stimulating Hormone 1.020 3rd Gen Urine Color YELLOW Urine Turbidity CLEAR Urine pH 6.0 Urine Specific [place] 1.010 Urine Protein NEG Urine Glucose (UA) NEG Urine Ketones NEG Urine Occult Blood NEG Urine Nitrite NEG Urine Bilirubin NEG Urine Leukocyte Esterase NEG Urine RBC 0-3 Urine WBC 0-2 Urine Squamous Epithelial 0-5 Cells Urine Bacteria RARE Urine Yeast (Budding) FEW Microscopic Urinalysis Comment CULT NOT INDICATED Blood Gas Puncture Site RT BRACHIAL Blood Gas Patient Temperature 98.6 Blood Gas HCO3 28 Blood Gas Base Excess 4.4 Blood Gas Oxygen Saturation 97 Arterial Blood pH 7.50 Arterial Blood Partial 36 Pressure CO2 Arterial Blood Partial 348 Pressure O2 Arterial Blood Oxygen Content 17.3 Arterial Blood 1.9 Carboxyhemoglobin Arterial Blood Methemoglobin 1.3 Blood Gas Hemoglobin 12.1 Oxygen Delivery Device BIPAP Blood Gas Ventilator Setting IPAP15/[id number] Blood Gas Inspired Oxygen 100 Lactic Acid Level 1.8 Test 11/13/16 14:29 Ammonia 14 Total Creatine Kinase 12 Date/Time Procedure Status Source Growth 11/13/16 12:00 Aerobic Blood Culture Received Blood Peripheral Pending 11/13/16 12:00 Anaerobic Blood Culture Received Blood Peripheral Pending Result Diagram: 11/13/16 1200 11/13/16 1200 Imaging Last Impressions Chest X-Ray 11/13/16 1209 Signed Impressions: Service Date/Time: Sunday, November 13, 2016 12:47 - CONCLUSION: Cardiomegaly with mild left basilar atelectasis. No infiltrate or effusion. Gary Albrecht Jr., MD Assessment and Plan Assessment and Plan Neuro/psych: Anxiety depression Patient is on Escitalopram 10 mg by mouth daily for depression. This been continued Holding Klonopin so 0.5 mill grams by mouth twice a day Acetaminophen for fever [place]/morphine for pain management CV: Chronic atrial fibrillation Coronary artery disease status post IN 1987 Cardiomyopathy Congestive heart failure/systolic EF 35-40% 10/16 Hypertension Dyslipidemia Mildly aortic stenosis Severe septic shock 2-D echocardiogram 10/16 revealed EF 35-40% regional hypokinesis. Mild aortic stenosis Currently on norepinephrine at 15 mcg/m to maintain MAP greater than 65 added vasopressin 0.4 units an hour. Start on stress dosed steroids Solu-Cortef 100 mg every 8. Noted on Chronic prednisone use 20 milligrams daily. Holding Coreg 6.25 mg by mouth twice a day for hypertension Continue amiodarone 200 mg by mouth daily for A. fib. Continue atorvastatin 10 mg daily for dyslipidemia Limited echo eval EF. Resp: Acute hypoxemic respiratory failure COPD Possible HCAP Currently a nonrebreather mask. Will wean down as tolerated. Bronchodilator therapy every 6 hours and as needed Symbicort twice daily Follows with Dr. Villarreal See below or ID workup GI: History of GI bleed Morbid obesity Cholelithiasis Chronic abdominal pain Chronic constipation Diverticulosis Clear liquid diet Protonix for GI prophylaxis. On Protonix 40 mg by mouth daily at home Colace/as needed Senokot for bowel regimen EGD from last admission - gastritis bx from antrum, normal endoscopy otherwise , retroflexed revealed no abnormalities, few diverticulosis in the sigmoid, normal surgical anastamosis, no active bleed, small polyp in the ascending colon removed by snare, the colon mucosa was otherwise normal, retroflexed views revealed internal hemorrhoids, small internal hemorrhoids, revealed no abnormalities of the rectum. : BPH Hypogonadism Will hold Flomax 0.4 susie grams by mouth daily. Chavez catheter for accurate I's nose any critically ill patient Endo: Sliding-scale insulin to maintain euglycemia. Accu-Cheks every 6 hours/low regimen Renal: Chronic kidney disease stage III Creatinine currently 1.2. Accurate I's and O's Monitor urine output closely Repeat BMP this a.m. Heme: Normocytic anemia history of ITP Chronic VKA use At home on Coumadin 2 mg by mouth daily. INR is currently 1.9. Monitor CBC/CMP daily. Daily INRs with pharmacy to manage. ID: Possible healthcare associated pneumonia Day 1 vancomycin/Zosyn. In Zithromax Pending blood cultures 2, sputum, urine, urine Legionella pneumococcal antigens and influenza MSK: Chronic compression fractures of thoracic vertebrae Chronic low back pain Calcium vitamin D at home. This is been held PT evaluate and treat FEN: Hypophosphatemia Hypo-magnesium Replace electrolytes as clinically indicated per ICU protocol 30 mmol sodium phosphate and 2 g mag sulfate. Recheck this afternoon Access - Utilized right femoral line Placed in ED by Dr. Schultz 11/13. Peripheral switch to IJ or discontinue able to wean off vasopressors shortly Prophylaxis - GI - Protonix - DVT - SCD/Coumadin Critical Care: The total critical care time was 55 minutes. Time to perform other separately billable procedures was not included in the critical care time. Code Status Full code Discussed Condition With Dr. Schultz/ED physician and patient. Care plan discussed all questions answered. Problem Qualifiers (1) Respiratory failure: Qualified Code: J96.01 - Acute respiratory failure with hypoxia (2) Hyperlipidemia: Qualified Code: E78.5 - Hyperlipidemia, unspecified hyperlipidemia type (3) Benign prostatic hyperplasia: Qualified Code: N40.0 - Benign prostatic hyperplasia, presence of lower urinary tract symptoms unspecified, unspecified morphology (4) Chronic kidney disease: Qualified Code: N18.3 - Chronic kidney disease, stage 3 (moderate) (5) A-fib: Qualified Code: I48.2 - Chronic atrial fibrillation (6) Congestive heart failure: Qualified Code: I50.9 - Congestive heart failure, unspecified congestive heart failure chronicity, unspecified congestive heart failure type Antony Coreas MD Nov 13, 2016 15:36
[2016-11-13] MEDS ORDERED: Vancomycin Consult Pharmacy 1 EA OTHER SCH (15:45)
[2016-11-13] MEDS ORDERED: SODIUM PHOSPHATE INJ 30 MMOL in SODIUM CHLOR 0.9% 250 ML INJ 250 ML IV ONE (15:45)
[2016-11-13] MEDS ORDERED: POTASSIUM PHOSPHATE MONOBASIC 500 MG TAB PO/TUBE PRN (15:52)
[2016-11-13] MEDS ORDERED: MAGNESIUM SULFATE INJ 2 GM in SODIUM CHLORIDE 0.9% INJ 96 ML IV PRN (16:00)
[2016-11-13] MEDS ORDERED: POTASSIUM CHLOR 20 MEQ PREMIX 100 ML IV PRN ×2 (16:00)
[2016-11-13] MEDS ORDERED: POTASSIUM CHLOR 40 MEQ PREMIX 100 ML IV PRN (16:00)
[2016-11-13] MEDS ORDERED: MAGNESIUM OXIDE 400 MG TAB PO PRN (16:00)
[2016-11-13] MEDS ORDERED: POTASSIUM PHOSPHATE MONOBASIC 500 MG TAB PO PRN (16:00)
[2016-11-13] MEDS: HYDROCORTISONE SOD SUCCINATE 100 MG VIAL IV PUSH SCH (16:00)
[2016-11-13] MEDS ORDERED: MAGNESIUM SULFATE INJ 4 GM in SODIUM CHLORIDE 0.9% INJ 92 ML IV PRN (16:00)
[2016-11-13] MEDS ORDERED: SODIUM CHLORIDE 0.9% FLUSH 5 ML FLUSH IV FLUSH PRN (16:30)
[2016-11-13] MEDS ORDERED: IOHEXOL 350 MG/ML 10 ML VIAL (for RAD DIAG) IV ONE (17:00)
[2016-11-13] MEDS: RESP: ALBUTEROL 2.5 MG/IPRATROPIUM 0.5 MG NEB (SCH) INH ×2 (17:08→20:27)
--- NOTE | 2016-11-13 17:09 | RADRPT ---
EXAM DATE/TIME: 11/13/2016 16:43 [facility] COMPARISON: CT PULMONARY ANGIOGRAM, May 11, 2016, 21:52. INDICATIONS : Septic shock with hypoxia. IV CONTRAST: 75 cc Omnipaque 350 (iohexol) IV RADIATION DOSE: 17.62 CTDIvol (mGy) MEDICAL HISTORY : Chronic obstructive pulmonary disease. SURGICAL HISTORY : Pacemaker. Colostomy. ENCOUNTER: Subsequent ACUITY: 1 day PAIN SCALE: 0/10 LOCATION: chest TECHNIQUE: Volumetric scanning of the chest was performed using a pulmonary embolism protocol MIP images were re constructed. Using automated exposure control and adjustment of the mA and/or kV according to patien t size, radiation dose was kept as low as reasonably achievable to obtain optimal diagnostic quality images. FINDINGS: PULMONARY ARTERIES: No filling defects are seen in the pulmonary arteries through the segmental level. LUNGS: There is emphysematous change in the upper lungs. There is increased density at the posterior lower l obes bilaterally. PLEURAE: There is no pleural thickening or pleural effusion. MEDIASTINUM: There is good visualization of the great vessels of the middle mediastinum. No evidence of mediastin al or hilar adenopathy/mass. Coronary artery calcifications are seen. There is calcification at the l eft ventricular apex likely from prior infarction. This was present previously. There is a pacing dev ice in place from a left subclavian approach. MUSCULOSKELETAL: There are multiple compression deformities throughout the thoracic spine. MISCELLANEOUS: The visualized upper abdominal organs demonstrate no acute abnormality. Calcified gallstones are seen . CONCLUSION: 1. No pulmonary embolus. 2. Emphysematous change in the upper lungs and consolidation or atelectasis in the lower lungs. 3. 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 This finding is unchanged. 4. Multiple compression fractures in the thoracic spine. Salvatore Goddard MD on November 13, 2016 at 17:04 Board Certified Radiologist. This report was verified electronically.
[2016-11-13] MEDS ORDERED: WARFARIN SOD 1 MG TAB PO SCH (18:00)
[2016-11-13] MEDS: INSULIN NovoLIN REGULAR SUPPLEMENTAL SCALE SQ SCH (18:00)
[2016-11-13] MEDS: AZITHROMYCIN INJ 500 MG in SODIUM CHLOR 0.9% 250 ML INJ 250 ML IV SCH (18:00)
[2016-11-13] MEDS: ARTIFICIAL TEARS OPTH SOLN 15 ML BTL EACH EYE SCH (18:00)
[2016-11-13] MEDS: VASOPRESSIN INJ 40 UNITS in DEXTROSE 5% IN WATER 100ML INJ 98 ML IV SCH ×2 (20:49)
[2016-11-13] MEDS: SODIUM CHLORIDE 0.9% FLUSH 5 ML FLUSH IV FLUSH SCH (20:51)
[2016-11-13] MEDS: DOCUSATE SODIUM 100 MG CAP PO SCH (20:51)
[2016-11-13] MEDS: ATORVASTATIN 10 MG TAB PO SCH (20:51)
[2016-11-13] MEDS ORDERED: TAMSULOSIN HCL 0.4 MG CAP PO SCH (21:00)
[2016-11-13] MEDS ORDERED: SODIUM CHLORIDE 0.9% FLUSH 5 ML FLUSH IV FLUSH SCH (21:00)
[2016-11-13] MEDS ORDERED: CALCIUM/VITAMIN D 250 MG/125 U TAB PO SCH (21:00)
[2016-11-13] MEDS ORDERED: VANCOMYCIN 1,000 MG/NS 250 ML IV ONE ×2 (21:30)
[2016-11-13] MEDS: PIPERACIL-TAZO 4.5 GM PREMIX 100 ML IV SCH (21:39)
--- NOTE | 2016-11-13 21:42 | EKG ---
Date Performed: 11/13/2016 Time Performed: 12:29:20 PTAGE: 76 years EKG: Sinus tachycardia Left axis deviation IV conduction defect Nonspecific ST-T wave changes CO MPARED TO PRIOR ELECTROCARDIOGRAM, Rate has increased. PREVIOUS TRACING : 10/19/2016 17.35 DOCTOR: Kun Sanchez Interpretating Date/Time 11/13/2016 21:41:32
[2016-11-13] MEDS: BUDESONIDE-FORMOTEROL 160/4.5 MCG INHALER INH SCH (23:08)
[2016-11-13 23:41] LABS: MAGNESIUM 2.3 MG/DL (1.5-2.5)
[2016-11-14] VITALS (14 sets, daily range): BP systolic 105–121; BP diastolic 55–60; PULSE 59–66; RESP 24–28; TEMP 97.5–98.3; O2SAT 95–99
[2016-11-14] MEDS ORDERED: VANCOMYCIN 0 MG/NS 250 ML IV ONE ×2
[2016-11-14] MEDS: HYDROCORTISONE SOD SUCCINATE 100 MG VIAL IV PUSH SCH ×3 (00:41→16:25)
[2016-11-14] MEDS: PIPERACIL-TAZO 4.5 GM PREMIX 100 ML IV SCH ×2 (00:41→08:38)
[2016-11-14] MEDS: CHLORHEXIDINE GLUCONATE 2 % 1 PACK (2 CLOTHS) TOP SCH (00:43)
[2016-11-14] MEDS: RESP: ALBUTEROL 2.5 MG/IPRATROPIUM 0.5 MG NEB (SCH) INH ×4 (03:19→21:39)
[2016-11-14] MEDS ORDERED: CHLORHEXIDINE GLUCONATE 2 % 1 PACK (2 CLOTHS) TOP SCH (04:00)
[2016-11-14 04:15] LABS: AUTOMATED NEUTROPHIL # 8.4 TH/MM3 (1.8-7.7); BASOPHIL % 0.1 % (0.0-2.0); EOSINOPHIL % 0.4 % (0.0-4.0); HEMATOCRIT 30.1 % (39.0-51.0); LYMPH % 5.4 % (9.0-44.0); LYMPHOCYTE # 0.5 TH/MM3 (1.0-4.8); MEAN CELL VOLUME 90.7 FL (80.0-100.0); MEAN CORPUSCULAR HEMOGLOBIN 29.9 PG (27.0-34.0); MONO % 5.7 % (0.0-8.0); NEUT % 88.4 % (16.0-70.0); PLATELET COUNT 94 TH/MM3 (150-450); RED BLOOD COUNT 3.32 MIL/MM3 (4.50-5.90); RED CELL DISTRIBUTION WIDTH 20.7 % (11.6-17.2); WHITE BLOOD COUNT 9.5 TH/MM3 (4.0-11.0)
[2016-11-14 04:23] LABS: APTT (PATIENT) 35.5 SEC (24.3-30.1); INTERNATIONAL NORMALIZED RATIO 1.5 RATIO; PROTHROMBIN TIME - PATIENT 17.4 SEC (9.8-11.6)
[2016-11-14 04:30] LABS: HEMO FLAGS AUTO DIFF
[2016-11-14 04:39] LABS: ALT (GPT) 39 U/L (12-78); ANION GAP 8 MEQ/L (5-15); AST (GOT) 24 U/L (15-37); BICARBONATE 29.7 MEQ/L (21.0-32.0); BLOOD UREA NITROGEN 20 MG/DL (7-18); CHLORIDE 101 MEQ/L (98-107); GLOMERULAR FILTRATION RATE 62 ML/MIN (>89); MAGNESIUM 2.2 MG/DL (1.5-2.5); POTASSIUM 3.5 MEQ/L (3.5-5.1); SODIUM (NA) 139 MEQ/L (136-145)
[2016-11-14 04:43] LABS: ALKALINE PHOSPHATASE 83 U/L (45-117); TOTAL BILIRUBIN ADULT 0.9 MG/DL (0.2-1.0)
--- NOTE | 2016-11-14 04:50 | RADRPT ---
EXAM DATE/TIME: 11/14/2016 02:22 [facility] COMPARISON: CHEST SINGLE AP, November 13, 2016, 12:47. INDICATIONS : Shortness of breath, possible pulmonary disease. MEDICAL HISTORY : Hypertension. Chronic obstructive pulmonary disease. SURGICAL HISTORY : Pacemaker. ENCOUNTER: Subsequent ACUITY: 2 days PAIN SCORE: Non-responsive. LOCATION: Bilateral chest FINDINGS: Pacer leads overlie right atrium and right ventricle. Mild basilar airspace disease, left greater julia n right. Cardiomegaly. No pneumothorax. CONCLUSION: 1. Cardiomegaly. Left ventricular calcifications probably related to prior infarct. Mild basilar airs pace disease similar to November 13. Luis Antonio Dunn MD on November 14, 2016 at 4:45 Board Certified Radiologist. This report was verified electronically.
[2016-11-14] MEDS: INSULIN NovoLIN REGULAR SUPPLEMENTAL SCALE SQ SCH ×4 (05:18→18:00)
[2016-11-14 06:56] LABS: OVALOCYTES 1+ (NORMAL); PLATELET ESTIMATE SMEAR LOW (NORMAL); PLATELET MORPHOLOGY NORMAL (NORMAL)
[2016-11-14 06:57] LABS: SCAN/DIFF AUTO DIFF CONFIRMED
[2016-11-14] MEDS: PANTOPRAZOLE SODIUM 40 MG VIAL IV SCH (08:39)
[2016-11-14] MEDS: BUDESONIDE-FORMOTEROL 160/4.5 MCG INHALER INH SCH ×2 (08:39→22:01)
[2016-11-14] MEDS: SODIUM CHLORIDE 0.9% FLUSH 5 ML FLUSH IV FLUSH SCH ×2 (08:39→22:02)
[2016-11-14] MEDS: DOCUSATE SODIUM 100 MG CAP PO SCH ×2 (08:40→21:00)
[2016-11-14] MEDS: MULTIVITAMINS/MINERALS THERAPEUTIC TAB PO SCH (08:40)
[2016-11-14] MEDS: SODIUM CHLORIDE 0.9% FLUSH 5 ML FLUSH IV FLUSH PRN ×2 (08:40→09:36)
[2016-11-14] MEDS: AMIODARONE 200 MG TAB PO SCH (08:40)
[2016-11-14] MEDS: ESCITALOPRAM OXALATE 10 MG TAB PO SCH (08:40)
--- NOTE | 2016-11-14 09:14 | ECHLIM ---
Study Study Date:11/14/2016 STUDY CONCLUSIONS SUMMARY - Left ventricle: The cavity size was dilated. Wall thickness was normal. Systolic function was severely reduced. The estimated ejection fraction was in the range of 20% to 25%. Diffuse hypokinesis. Doppler parameters are consistent with abnormal left ventricular relaxation (grade 1 diastolic dysfunction). - Left atrium: The atrium was mildly dilated. - Right ventricle: Systolic function was reduced. If LV function is below 40, please consider prescribing an ACEI or ARB or document rationale for non-use. PROCEDURE DATA Procedure: Transthoracic echocardiography. Image quality was suboptimal. Scanning was performed from the parasternal, apical, and subcostal acoustic windows. Study completion: The patient tolerated the procedure well. Transthoracic echocardiography. M-mode, limited 2D, limited spectral Doppler, and color Doppler. CARDIAC ANATOMY LEFT VENTRICLE: The cavity size was dilated. Wall thickness was normal. Systolic function was severely reduced. The estimated ejection fraction was in the range of 20% to 25%. Diffuse hypokinesis. Doppler parameters are consistent with abnormal left ventricular relaxation (grade 1 diastolic dysfunction). AORTIC VALVE: Trileaflet; mildly thickened, mildly calcified leaflets. Doppler: Transvalvular velocity was within the normal range. There was no stenosis. No regurgitation. AORTA: Aortic root: The aortic root was normal in size. MITRAL VALVE: Mildly thickened leaflets, . Doppler: Transvalvular velocity was within the normal range. There was no evidence for stenosis. Trace regurgitation. Peak gradient: 3mm Hg (D). LEFT ATRIUM: The atrium was mildly dilated. RIGHT VENTRICLE: Poorly visualized. Systolic function was reduced. TRICUSPID VALVE: Poorly visualized. PERICARDIUM: There was no pericardial effusion. BASIC MEASUREMENTS ADULT NORMAL Left ventricle LV internal dimension, ED, chordal level, *62.3 mm 43-52 PLAX LV internal dimension, ES, chordal level, *56.9 mm 23-38 PLAX Fractional shortening, chordal level, PLAX *9 % >29 LV posterior wall thickness, ED 9.9 mm IVS/LVPW ratio, ED 1.01 <1.3 Ventricular septum Septal thickness, ED 9.98 mm Left atrium Anterior-posterior dimension 33 mm DOPPLER MEASUREMENTS ADULT NORMAL Mitral valve Peak E-wave velocity 79.5 cm/s Peak A-wave velocity 108 cm/s Deceleration time 197 ms 150-230 Peak gradient, D 3 mm Hg Peak E/A ratio 0.7 LEGEND: Mean values are shown as u=mean value. Asterisk (*) harrison values outside specified normal range. Prepared and signed by Kun Sanchez [id number]
[2016-11-14] MEDS: ARTIFICIAL TEARS OPTH SOLN 15 ML BTL EACH EYE SCH ×3 (09:37→18:21)
[2016-11-14] MEDS: VANCOMYCIN INJ 1,750 MG in SODIUM CHLORID 0.9% 500 ML INJ 500 ML IV SCH (12:12)
--- NOTE | 2016-11-14 13:09 | PD.CONS ---
History of Present Illness Service Infectious disease Consult Requested By Dr Serjio Coreas Reason for Consult Evaluate patient with positive blood culture Primary Care Physician Srinivas Mehta MD Diagnoses: History of Present Illness Patient seen and examined. Records reviewed. Patient is a 76-year-old male, [facility], brought into the hospital for further evaluation of acute shortness of breath. There is also mention of fever and some nonproductive cough. He denies any chest pain. Denies any sore throat. Has not had any nausea or vomiting. Denies any abdominal pain or diarrhea. Patient has been in and out of the hospital since August 2016. In September he had a UTI with Escherichia coli ESBL positive. His last admission was in October and he came in with GI bleed. During his last admission he had a Chavez catheter in place which was removed when he was discharged to the [facility]. Patient states that he urinates a lot and frequently, and occasionally has some dysuria. Chavez catheter was placed when he came into the hospital this time. His urinalysis on admission is normal. WBC is normal. Chest x-ray has shown some effusion and some basilar infiltrates. Blood culture admission is now reported as growing gram-negative reji on 2 bottles, and one also with gram-positive cocci. He is currently afebrile. Infectious disease consultation is requested to evaluate the patient. Review of Systems Constitutional: COMPLAINS OF: Fever, Weight loss, Change in appetite Eyes: DENIES: Eye pain Ears, nose, mouth, throat: DENIES: Nasal discharge, Oral lesions, Throat pain, Running Nose, Sinus Pain, Odynophagia Respiratory: COMPLAINS OF: Cough, Shortness of breath, DENIES: Sputum production Cardiovascular: COMPLAINS OF: Dyspnea on Exertion, DENIES: Chest pain, Palpitations Gastrointestinal: DENIES: Abdominal pain, Diarrhea, Nausea, Vomiting, Difficulty Swallowing Genitourinary: COMPLAINS OF: Urinary frequency, Dysuria Musculoskeletal: DENIES: Joint pain, Joint Swelling Integumentary: DENIES: Rash Neurologic: DENIES: Headache, Localized weakness Psychiatric: COMPLAINS OF: Anxiety, DENIES: Hallucinations Past Family Social History Allergies: Coded Allergies: Quinidex Extentab (Verified Allergy, Severe, PLATELETT COUNT DECREASES/ BLINDNESS, 11/02/16) Niacin (Verified Allergy, Intermediate, RASH/ITCHING, 11/02/16) MRI PRECAUTION (Verified Adverse Reaction, Severe, NON MRI COMPATIBLE DEFIB 10/22/15 LRS, 11/02/16) *MDRO Multi-Drug Resistant Organism (Verified Adverse Reaction, Unknown, ESBL, 11/02/16) ESBL E. coli (abd. 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 coli (urine) - 03/08/16, 09/28/16, 10/19/16 Past Medical History CAD, cardiomyopathy Hypogonadism History of hypertension History of right lower extreme DVT 2010 Chronic kidney disease creatinine currently 1.2 Anticoagulation use Anxiety disorder Chronic atrial fibrillation Chronic low back pain Cholelithiasis Chronic compression fractures thoracic vertebrae COPD by diagnosis Depression NOS Diverticulosis Hypertension Dyslipidemia History of ITP Macrocytosis TERRENCE Esophagitis Past Surgical History AICD placement with battery replacement 2015 Pilonidal cyst resection Colon resection with colostomy for diverticulitis with colon perforation with takedown diverting colostomy Cataract Active Ordered Medications Tylenol Piffard Albuterol Cordarone Lipitor Zithromax Symbicort Os-Timothy D Colace Lexapro Solu-Cortef Insulin Magnesium Morphine Levophed Zofran Protonix Zosyn Potassium Vancomycin Senokot Vasopressin Coumadin Social History Single. Homosexual. Smokes 3-4 cigarettes per day No drinking. No illicit drug use No contact with hazardous materials. Physical Exam Vital Signs Vital Signs Date Time Temp Pulse Resp B/P Pulse Ox O2 Delivery O2 Flow Rate FiO2 11/14/16 12:00 98.1 60 24 116/57 99 11/14/16 12:00 60 11/14/16 12:00 99 Nasal Cannula 6.00 11/14/16 10:00 66 11/14/16 08:00 97.6 60 25 113/55 95 11/14/16 08:00 95 Nasal Cannula 6.00 11/14/16 08:00 59 11/14/16 07:46 98 Venturi Mask 6.00 11/14/16 06:00 64 11/14/16 04:00 96 Venturi Mask 35 11/14/16 04:00 60 11/14/16 04:00 97.5 60 26 116/60 96 11/14/16 02:00 60 11/14/16 00:00 98 Venturi Mask 35 11/14/16 00:00 60 11/14/16 00:00 98.3 60 27 105/58 98 11/13/16 22:00 60 11/13/16 20:30 97 Venturi Mask 50 11/13/16 20:00 69 11/13/16 20:00 97 Venturi Mask 35 11/13/16 20:00 98.1 69 30 115/59 97 11/13/16 17:08 95 Venturi Mask 6.00 50 11/13/16 17:00 20 11/13/16 14:12 88 28 82/51 100 BiPAP 11/13/16 13:55 82/57 11/13/16 13:13 100 30 91/56 97 Physical Exam GENERAL: This is a well-nourished, well-developed male, awake and alert, looks comfortable at rest. SKIN: Cool and dry, no generalized rash, no ecchymosis. HEAD: Atraumatic. Normocephalic. No temporal or scalp tenderness. EYES: Emmett conjunctivae, no petechia or hemorrhage. Pupils equal round and reactive. Extraocular motions intact. No scleral icterus. No injection or drainage. ENT: Nose without bleeding, or purulent drainage. Dry oral mucosa, no oral thrush. Throat without erythema, Uvula midline. Airway patent. NECK: Trachea midline. No JVD or lymphadenopathy. Supple, nontender, no meningeal signs. CARDIOVASCULAR: Regular rate and rhythm without murmurs, gallops, or rubs. AICD L upper chest fairly unremarkable RESPIRATORY: Mostly clear to auscultation, with occasional wheezing on the right. GASTROINTESTINAL: Abdomen soft, non-tender, nondistended. Bowel sounds are present and normoactive. No hepato-splenomegaly, or palpable masses. No guarding. MUSCULOSKELETAL: Extremities without clubbing, cyanosis, or edema. No joint tenderness, effusion. No calf tenderness. Negative Homans sign bilaterally. NEUROLOGICAL: Awake and alert. Cranial nerves II through XII intact. Motor and sensory grossly within normal limits. Normal speech. PSYCH: Gets easily irritated, cooperative : Chavez in place, urine clear LINE: PIV with no evidence of infection Laboratory Laboratory Tests Test 11/13/16 11/13/16 11/13/16 11/14/16 14:29 18:05 23:00 03:50 Ammonia 14 Total Creatine Kinase 12 Lactic Acid Level 1.1 0.8 Phosphorus Level 5.0 4.1 Magnesium Level 2.3 2.2 Troponin I 0.03 0.03 White Blood Count 9.5 Red Blood Count 3.32 Hemoglobin 9.9 Hematocrit 30.1 Mean Corpuscular Volume 90.7 Mean Corpuscular Hemoglobin 29.9 Mean Corpuscular Hemoglobin 33.0 Concent Red Cell Distribution Width 20.7 Platelet Count 94 Mean Platelet Volume 7.9 Neutrophils (%) (Auto) 88.4 Lymphocytes (%) (Auto) 5.4 Monocytes (%) (Auto) 5.7 Eosinophils (%) (Auto) 0.4 Basophils (%) (Auto) 0.1 Neutrophils # (Auto) 8.4 Lymphocytes # (Auto) 0.5 Monocytes # (Auto) 0.5 Eosinophils # (Auto) 0.0 Basophils # (Auto) 0.0 CBC Comment AUTO DIFF Differential Comment AUTO DIFF CONFIRMED Platelet Estimate LOW Platelet Morphology Comment NORMAL Ovalocytes 1+ Prothrombin Time 17.4 Prothromb Time International 1.5 Ratio Activated Partial 35.5 Thromboplast Time Sodium Level 139 Potassium Level 3.5 Chloride Level 101 Carbon Dioxide Level 29.7 Anion Gap 8 Blood Urea Nitrogen 20 Creatinine 1.15 Estimat Glomerular Filtration 62 Rate Random Glucose 155 Calcium Level 7.9 Total Bilirubin 0.9 Aspartate Amino Transf 24 (AST/SGOT) Alanine Aminotransferase 39 (ALT/SGPT) Alkaline Phosphatase 83 Total Protein 4.9 Albumin 2.1 Date/Time Procedure Status Source Growth 11/14/16 10:45 Gram Stain Received Sputum Expectorated Sputum Pending 11/14/16 10:45 Sputum Culture Received Sputum Expectorated Sputum Pending 11/14/16 05:55 Streptococcus pneumoniae Antigen (M - Final Complete Urine Catheterized Urine PRESUMPTIVE NEGATIVE FOR STREPTOCOCCU... 11/14/16 05:55 Legionella Antigen - Final Complete Urine Clean Catch PRESUMPTIVE NEGATIVE FOR LEGIONELLA P... 11/13/16 12:18 Streptococcus pneumoniae Antigen (M Ordered Urine Catheterized Urine Pending 11/13/16 12:18 Legionella Antigen Ordered Urine Clean Catch Pending 11/13/16 12:05 Aerobic Blood Culture - Preliminary Resulted Blood Peripheral Gram Negative Reji 11/13/16 12:05 Anaerobic Blood Culture - Preliminary Resulted Gram Negative Reji Gram Positive Cocci 11/13/16 12:00 Aerobic Blood Culture Received Blood Peripheral Pending 11/13/16 12:00 Anaerobic Blood Culture Received Blood Peripheral Pending Result Diagram: 11/14/16 0350 11/14/16 0350 Imaging RADIOLOGY STUDIES/FILMS REVIEWED Chest X-Ray 11/14/16 0600 Signed Impressions: Service Date/Time: Monday, November 14, 2016 02:22 - CONCLUSION: 1. Cardiomegaly. Left ventricular calcifications probably related to prior infarct. Mild basilar airspace disease similar to November 13. Luis Antonio Dunn MD CT Angiography 11/13/16 0000 Signed Impressions: Service Date/Time: Sunday, November 13, 2016 16:43 - CONCLUSION: 1. No pulmonary embolus. 2. Emphysematous change in the upper lungs and consolidation or atelectasis in the lower lungs. 3. 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 This finding is unchanged. 4. Multiple compression fractures in the thoracic spine. Salvatore Goddard MD Assessment and Plan Assessment and Plan IMPRESSION GNR sepsis on admission, with shock, source - C/O SOB, and some cough, ?PNA - UA ok - LFT ok - had E coli ESBL+ UTI last September - has AICD, site unremarkable Cardiomyopathy, CAD RECOMMENDATION Meropenem Continue Vancomycin Repeat BC Repeat LFT US kidney Follow C/S Monitor progress I will follow along with you Thank you for this consultation Discussed Condition With D/W Emilia Will MD Nov 14, 2016 13:09
[2016-11-14] MEDS ORDERED: ASP: Documented ESBL, MDR A baumannii or P. aeruginosa XX PRN (13:30)
[2016-11-14] MEDS ORDERED: MISCELLANEOUS PHARMACY INFORMATION XX PRN (13:30)
[2016-11-14] MEDS: SODIUM CHLOR 0.9% 1000 ML INJ 1,000 ML IV SCH (13:36)
--- NOTE | 2016-11-14 13:44 | HHI.CCPN ---
Subjective Remarks/Hospital Course 76-year-old male. Date of admission 11/13/2016. Past medical history includes chronic warfarin usage, anxiety disorder, coronary artery disease, chronic atrial fibrillation/rate control, chronic low back pain, cardiomyopathy , cholelithiasis, chronic compression fractures of thoracic vertebrae, chronic constipation, COPD, depression, diverticulosis, hypertension, dyslipidemia, ITP , macrocytosis, TERRENCE, esophagitis. This is the patient's fourth hospitalizations since August 2016. Most recently patient was admitted for GI bleed. Patient is not felt well since discharge. He presents from his [facility] after waking up acutely short of breath with pyrexia and nonproductive cough Patient was on Coumadin with Coumadin-induced coagulopathy. Patient was put back on Coumadin and discharged back to [facility]. Patient was seen at rest but distress and was given 100% nonrebreathing mask and transported to ED for evaluation. Chest x-ray revealed possible left lower lobe infiltrate. Patient became acutely hypotensive in the ED a central line was placed femorally by ED physician. Patient*norepinephrine drip and given 1 L normal saline bolus. Lactate within normal limits. He is transported to [facility] for evaluation at this facility. We are asked to admit this patient. Subjective 11/14: Currently afebrile. Currently nasal cannula. Appears most more comfortable left septic today. NorEpinephrine down to 4 g a minute. Blood cultures with gram-negative reji/Escherichia coli. Kidney evaluation pending. UA clean. Objective Vital Signs Date Time Temp Pulse Resp B/P Pulse Ox O2 Delivery O2 Flow Rate FiO2 11/14/16 12:00 98.1 60 24 116/57 99 11/14/16 12:00 Nasal Cannula 6.00 11/14/16 04:00 35 Intake and Output 11/13/16 11/13/16 11/14/16 08:00 16:00 00:00 Intake Total 45 ml Balance 45 ml Result Diagram: 11/14/16 0350 11/14/16 0350 Other Results Microbiology Date/Time Procedure Status Source Growth 11/14/16 10:45 Gram Stain Received Sputum Expectorated Sputum Pending 11/14/16 10:45 Sputum Culture Received Sputum Expectorated Sputum Pending 11/14/16 05:55 Streptococcus pneumoniae Antigen (M - Final Complete Urine Catheterized Urine PRESUMPTIVE NEGATIVE FOR STREPTOCOCCU... 11/14/16 05:55 Legionella Antigen - Final Complete Urine Clean Catch PRESUMPTIVE NEGATIVE FOR LEGIONELLA P... 11/13/16 12:18 Streptococcus pneumoniae Antigen (M Ordered Urine Catheterized Urine Pending 11/13/16 12:18 Legionella Antigen Ordered Urine Clean Catch Pending 11/13/16 12:05 Aerobic Blood Culture - Preliminary Resulted Blood Peripheral Gram Negative Reji 11/13/16 12:05 Anaerobic Blood Culture - Preliminary Resulted Gram Negative Reji Gram Positive Cocci 11/13/16 12:00 Aerobic Blood Culture Received Blood Peripheral Pending 11/13/16 12:00 Anaerobic Blood Culture Received Blood Peripheral Pending Imaging Last Impressions Chest X-Ray 11/14/16 0600 Signed Impressions: Service Date/Time: Monday, November 14, 2016 02:22 - CONCLUSION: 1. Cardiomegaly. Left ventricular calcifications probably related to prior infarct. Mild basilar airspace disease similar to November 13. Luis Antonio Dunn MD CT Angiography 11/13/16 0000 Signed Impressions: Service Date/Time: Sunday, November 13, 2016 16:43 - CONCLUSION: 1. No pulmonary embolus. 2. Emphysematous change in the upper lungs and consolidation or atelectasis in the lower lungs. 3. 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 This finding is unchanged. 4. Multiple compression fractures in the thoracic spine. Salvatore Goddard MD Objective Remarks GENERAL: 76-year-old male, critically ill currently a nonrebreather mask SKIN: Warm and dry. Positive ecchymosis bilateral upper and lower extremities HEAD: Atraumatic. Normocephalic. EYES: Pupils equal and round about 3 mm bilaterally and reactive. No scleral icterus. No injection or drainage. ENT: No nasal bleeding or discharge. Mucous membranes pink and moist. NECK: Trachea midline. No JVD. CARDIOVASCULAR: IR. Accu. S1, S2. No S4. Murmurs appreciated RESPIRATORY: Transient appears sounds clear with cough. Few crackles patient left lower lobe. No wheeze. GASTROINTESTINAL: Abdomen soft, non-tender, nondistended. Hypoactive bowel sounds appreciated MUSCULOSKELETAL: Extremities without significant peripheral edema. No obvious deformities. Right femoral TLC clean dry and intact NEUROLOGICAL: Awake and alert. No obvious cranial nerve deficits. Motor grossly within normal limits. Five out of 5 muscle strength in the arms and legs. Normal speech. Vascular Central Line Catheter: Yes Assessment to: Remove Line: Central Venous Catheter Side: Right Location: Femoral A/P Assessment and Plan Neuro/psych: Anxiety depression Patient is on Escitalopram 10 mg by mouth daily for depression. This been continued Holding Klonopin so 0.5 mill grams by mouth twice a day Acetaminophen for fever [place]/morphine for pain management CV: Chronic atrial fibrillation Coronary artery disease status post VT 1987 Cardiomyopathy Congestive heart failure/systolic EF 35-40% 10/16 Hypertension Dyslipidemia Mildly aortic stenosis Severe septic shock 2-D echocardiogram 10/16 revealed EF 35-40% regional hypokinesis. Mild aortic stenosis Currently on norepinephrine at 15 mcg/m to maintain MAP greater than 65 added vasopressin 0.4 units an hour. Start on stress dosed steroids Solu-Cortef 100 mg every 8. Noted on Chronic prednisone use 20 milligrams daily. Holding Coreg 6.25 mg by mouth twice a day for hypertension in light of hypotension/vasopressin usage Continue amiodarone 200 mg by mouth daily for A. fib. Continue atorvastatin 10 mg daily for dyslipidemia Limited echo eval EF. Resp: Acute hypoxemic respiratory failure COPD Possible HCAP Currently a nonrebreather mask. Will wean down as tolerated. Bronchodilator therapy every 6 hours and as needed Symbicort twice daily Follows with Dr. Villarreal See below or ID workup GI: History of GI bleed Morbid obesity Cholelithiasis Chronic abdominal pain Chronic constipation Diverticulosis Clear liquid diet. Advance as tolerated Protonix for GI prophylaxis. On Protonix 40 mg by mouth daily at home Colace/as needed Senokot for bowel regimen EGD from last admission - gastritis bx from antrum, normal endoscopy otherwise , retroflexed revealed no abnormalities, few diverticulosis in the sigmoid, normal surgical anastamosis, no active bleed, small polyp in the ascending colon removed by snare, the colon mucosa was otherwise normal, retroflexed views revealed internal hemorrhoids, small internal hemorrhoids, revealed no abnormalities of the rectum. : BPH Hypogonadism Will hold Flomax 0.4 susie grams by mouth daily. Chavez catheter for accurate I's nose any critically ill patient Endo: Sliding-scale insulin to maintain euglycemia. Accu-Cheks every 6 hours/low regimen Renal: Chronic kidney disease stage III Creatinine currently 1.2. Accurate I's and O's Monitor urine output closely Repeat BMP this a.m. Heme: Normocytic anemia history of ITP Chronic VKA use At home on Coumadin 2 mg by mouth daily. INR is currently 1.9. Monitor CBC/CMP daily. Daily INRs with pharmacy to manage. ID: Possible healthcare associated pneumonia Day 2 vancomycin/Zosyn. Zosyn discontinued by ID and started on Merrem Pertinent cultures 11/13 - blood cultures 2 - Escherichia coli Negative urine Legionella pneumococcal antigens and influenza MSK: Chronic compression fractures of thoracic vertebrae Chronic low back pain Calcium vitamin D at home. This is been held PT evaluate and treat FEN: Replace electrolytes as clinically indicated per ICU protocol Access - Utilized right femoral line Placed in ED by Dr. Schultz 11/13. Peripheral switch to IJ or discontinue able to wean off vasopressors shortly Prophylaxis - GI - Protonix - DVT - SCD/Coumadin pharmacy managing Critical Care: The total critical care time was 55 minutes. Time to perform other separately billable procedures was not included in the critical care time. Antony Coreas MD Nov 14, 2016 13:44
--- NOTE | 2016-11-14 14:35 | PD.PROCEDR ---
Procedure Note Procedure DATE: 11/14/16 CENTRAL LINE PLACEMENT: Left internal jugular vein. Ultrasound-guided INDICATION: Central venous access CONSENT Informed consent for procedure was obtained from patient. DESCRIPTION OF THE PROCEDURE The patient was placed in supine position. The skin was cleansed with Chloraprep. Additional barrier precautions included large sterile drape, sterile gloves, sterile gown, face mask, and hat. 1 % lidocaine was used for local anesthesia. Under direct ultrasound guidance and on initial attempt, the vein was accessed with an introducer needle. The guide wire was advanced and the tract was dilated. Using Seldinger technique a 7 [place] 20 cm antimicrobial coated triple-lumen catheter was advanced to a depth of 20 centimeters. The guide wire was removed. All ports had good return of dark venous blood and flushed easily with saline. The central line was secured with 2.0 silk. A sterile dressing with antibiotic disc was applied. ESTIMATED BLOOD LOSS: Minimal COMPLICATIONS: No apparent complications. STAT chest x-ray pending at time of dictation Antony Coreas MD Nov 14, 2016 14:35
[2016-11-14] MEDS ORDERED: DIATRIZOATE MEGLUM/DIATRIZOATE SOD 9 ML CUP PO ONE (14:45)
[2016-11-14] MEDS ORDERED: SODIUM CHLORIDE 0.9% FLUSH 5 ML FLUSH IVF PRN (14:45)
--- NOTE | 2016-11-14 15:55 | RADRPT ---
EXAM DATE/TIME: 11/14/2016 14:57 [facility] COMPARISON: CHEST SINGLE AP, November 14, 2016, 2:22. INDICATIONS : Central Line Placement, Short of Breath. MEDICAL HISTORY : Hypertension. Chronic obstructive pulmonary disease. SURGICAL HISTORY : Pacemaker. ENCOUNTER: Subsequent ACUITY: 2 days PAIN SCORE: 0/10 LOCATION: Bilateral chest FINDINGS: A single AP semierect view of the chest was obtained and demonstrates interval placement of a left in ternal jugular central venous line with the tip projected over the superior vena cava. There is no ev idence of a pneumothorax. The left subclavian transvenous pacer remains in place. The heart size ellyn ins mildly enlarged and there is abnormal opacity remaining at the left lung base with obscuration of the left hemidiaphragm and blunting the costophrenic angle. CONCLUSION: 1. Interval placement of left internal jugular central venous line with no pneumothorax. 2. Abnormal opacity remains at the left lung base with probable effusion. Yohan Vera MD on November 14, 2016 at 15:52 Board Certified Radiologist. This report was verified electronically.
[2016-11-14] MEDS: VASOPRESSIN INJ 40 UNITS in DEXTROSE 5% IN WATER 100ML INJ 98 ML IV SCH ×2 (16:00)
[2016-11-14] MEDS: WARFARIN SOD 2 MG TAB PO SCH (16:25)
[2016-11-14] MEDS: MEROPENEM INJ 1,000 MG in SODIUM CHLORIDE 0.9% INJ 100 ML IV SCH ×2 (16:31→22:03)
[2016-11-14] MEDS: AZITHROMYCIN INJ 500 MG in SODIUM CHLOR 0.9% 250 ML INJ 250 ML IV SCH (18:21)
[2016-11-14] MEDS ORDERED: IOHEXOL 350 MG/ML 10 ML VIAL (for RAD DIAG) IV ONE (21:25)
--- NOTE | 2016-11-14 21:38 | RADRPT ---
EXAM DATE/TIME: 11/14/2016 21:20 [facility] COMPARISON: CT ABDOMEN & PELVIS W CONTRAST, November 07, 2016, 16:21. INDICATIONS : Sepsis. IV CONTRAST: 93 cc Omnipaque 350 (iohexol) IV ORAL CONTRAST: Prescribed oral contrast ingested. RADIATION DOSE: 22.60 CTDIvol (mGy) MEDICAL HISTORY : Cardiovascular disease. Chronic obstructive pulmonary disease. Diverticulitis. SURGICAL HISTORY : Pacemaker. Colostomy. ENCOUNTER: Subsequent ACUITY: 1 week PAIN SCALE: 6/10 LOCATION: abdomen TECHNIQUE: Volumetric scanning of the abdomen and pelvis was performed. Using automated exposure control and ad justment of the mA and/or kV according to patient size, radiation dose was kept as low as reasonably achievable to obtain optimal diagnostic quality images. FINDINGS: LOWER LUNGS: Mild subluxation is present in both posterior lung bases. LIVER: Homogeneous density without lesion. There is no dilation of the biliary tree. There are calcified ga llstones again noted. The gallbladder remains contracted and SPLEEN: Normal size without lesion. PANCREAS: Within normal limits. KIDNEYS: Normal in size and shape. There is no mass, stone or hydronephrosis. ADRENAL GLANDS: Within normal limits. VASCULAR: There is no aortic aneurysm. BOWEL/MESENTERY: Scattered diverticuli are again noted. There is a nonspecific bowel gas pattern is several loops of n ondilated small bowel. Gas is lucency is no free air The stomach, small bowel, and colon demonstrate no acute abnormality. There is no free intraperitoneal air or fluid. ABDOMINAL WALL: Multiple anterior abdominal wall hernias are again noted no inflammatory change or obstruction. RETROPERITONEUM: There is no lymphadenopathy. BLADDER: A Chavez catheter is present in the bladder which is decompressed. There is no focal abnormality. REPRODUCTIVE: Within normal limits. INGUINAL: There is no lymphadenopathy or hernia. MUSCULOSKELETAL: Osteopenia, degenerative changes and scoliosis are again noted. CONCLUSION: 1. Contracted gallbladder with calcified gallstones again noted. 2. Multiple anterior abdominal hernias again noted. 3. Nonspecific, nonobstructive bowel gas. 4. Mild consolidation in the lung bases. Yohan Vera MD on November 14, 2016 at 21:30 Board Certified Radiologist. This report was verified electronically.
[2016-11-14] MEDS: ATORVASTATIN 10 MG TAB PO SCH (22:02)
[2016-11-14] MEDS: CALCIUM/VITAMIN D 250 MG/125 U TAB PO SCH (22:02)
[2016-11-14] MEDS: MORPHINE SULFATE 4 MG/ML INJ IV PRN (22:14)
[2016-11-15] VITALS (14 sets, daily range): BP systolic 100–120; BP diastolic 51–59; PULSE 59–79; RESP 20–32; TEMP 97.5–98.7; O2SAT 91–100
[2016-11-15] MEDS: INSULIN NovoLIN REGULAR SUPPLEMENTAL SCALE SQ SCH ×5 (00:44→21:00)
[2016-11-15] MEDS: HYDROCORTISONE SOD SUCCINATE 100 MG VIAL IV PUSH SCH ×3 (00:45→17:24)
[2016-11-15] MEDS: NOREPINEPHRINE-DEXTROSE DRIP 250 ML IV SCH (01:13)
[2016-11-15] MEDS: SODIUM CHLOR 0.9% 1000 ML INJ 1,000 ML IV SCH ×2 (01:13→12:53)
[2016-11-15] MEDS: RESP: ALBUTEROL 2.5 MG/IPRATROPIUM 0.5 MG NEB (SCH) INH ×4 (03:04→21:09)
[2016-11-15] MEDS: CHLORHEXIDINE GLUCONATE 2 % 1 PACK (2 CLOTHS) TOP SCH (04:00)
[2016-11-15 05:05] LABS: AUTOMATED NEUTROPHIL # 5.5 TH/MM3 (1.8-7.7); BASOPHIL % 0.1 % (0.0-2.0); HEMATOCRIT 24.3 % (39.0-51.0); LYMPHOCYTE # 0.4 TH/MM3 (1.0-4.8); MEAN CELL VOLUME 89.5 FL (80.0-100.0); MEAN CORPUSCULAR HGB CONC 32.4 % (32.0-36.0); MONO % 6.6 % (0.0-8.0); NEUT % 87.3 % (16.0-70.0); PLATELET COUNT 68 TH/MM3 (150-450); RED BLOOD COUNT 2.71 MIL/MM3 (4.50-5.90); RED CELL DISTRIBUTION WIDTH 19.6 % (11.6-17.2); WHITE BLOOD COUNT 6.3 TH/MM3 (4.0-11.0)
[2016-11-15 05:07] LABS: HEMO FLAGS AUTO DIFF
[2016-11-15 05:23] LABS: INTERNATIONAL NORMALIZED RATIO 1.6 RATIO; PROTHROMBIN TIME - PATIENT 18.3 SEC (9.8-11.6)
[2016-11-15] MEDS: MEROPENEM INJ 1,000 MG in SODIUM CHLORIDE 0.9% INJ 100 ML IV SCH ×3 (05:24→21:21)
[2016-11-15 05:40] LABS: BICARBONATE 29.4 MEQ/L (21.0-32.0); INDIRECT BILIRUBIN 0.4 MG/DL (0.0-0.8); MAGNESIUM 2.1 MG/DL (1.5-2.5); TOTAL BILIRUBIN ADULT 0.6 MG/DL (0.2-1.0)
[2016-11-15 05:52] LABS: POTASSIUM 2.8 MEQ/L (3.5-5.1)
[2016-11-15] MEDS: POTASSIUM CHLOR 40 MEQ PREMIX 100 ML IV PRN ×2 (06:05→08:11)
[2016-11-15] MEDS: SODIUM PHOSPHATE INJ 30 MMOL in SODIUM CHLOR 0.9% 250 ML INJ 240 ML IV PRN (06:11)
[2016-11-15 06:12] LABS: OVALOCYTES 1+ (NORMAL)
[2016-11-15 06:13] LABS: PLATELET ESTIMATE SMEAR LOW (NORMAL); PLATELET MORPHOLOGY NORMAL (NORMAL); SCAN/DIFF AUTO DIFF CONFIRMED; TEARDROP RBCS 1+ (NORMAL)
[2016-11-15] MEDS: ARTIFICIAL TEARS OPTH SOLN 15 ML BTL EACH EYE SCH ×3 (08:11→18:54)
[2016-11-15] MEDS: SODIUM CHLORIDE 0.9% FLUSH 5 ML FLUSH IV FLUSH PRN (08:12)
[2016-11-15] MEDS: PANTOPRAZOLE SODIUM 40 MG VIAL IV SCH (08:12)
[2016-11-15] MEDS: SODIUM CHLORIDE 0.9% FLUSH 5 ML FLUSH IV FLUSH SCH ×2 (08:12→21:20)
[2016-11-15] MEDS: ESCITALOPRAM OXALATE 10 MG TAB PO SCH (08:12)
[2016-11-15] MEDS: AMIODARONE 200 MG TAB PO SCH (08:12)
[2016-11-15] MEDS: BUDESONIDE-FORMOTEROL 160/4.5 MCG INHALER INH SCH ×2 (08:12→21:19)
[2016-11-15] MEDS: MULTIVITAMINS/MINERALS THERAPEUTIC TAB PO SCH (08:13)
[2016-11-15] MEDS: CALCIUM/VITAMIN D 250 MG/125 U TAB PO SCH ×2 (08:13→21:20)
--- NOTE | 2016-11-15 08:46 | HHI.IDPN ---
Subjective Subjective Remarks Notes reviewed Temps ok Still on vasopressin, off levophed On nasal O2 at 2L Gets easily SOB CT A/P ok BC no ID yet on GNR and GPC Repeat BC negative so far Echo thickened AV and MV, other valves not seen well Antibiotics Meropenem Vancomycin Zithromax Lines LIJ TLC - 11/14 Past Medical History CAD, cardiomyopathy Hypogonadism History of hypertension History of right lower extreme DVT 2010 Chronic kidney disease creatinine currently 1.2 Anticoagulation use Anxiety disorder Chronic atrial fibrillation Chronic low back pain Cholelithiasis Chronic compression fractures thoracic vertebrae COPD by diagnosis Depression NOS Diverticulosis Hypertension Dyslipidemia History of ITP Macrocytosis TERRENCE Esophagitis Past Surgical History AICD placement with battery replacement 2015 Pilonidal cyst resection Colon resection with colostomy for diverticulitis with colon perforation with takedown diverting colostomy Cataract Allergies: Coded Allergies: Quinidex Extentab (Verified Allergy, Severe, PLATELETT COUNT DECREASES/ BLINDNESS, 11/02/16) Niacin (Verified Allergy, Intermediate, RASH/ITCHING, 11/02/16) MRI PRECAUTION (Verified Adverse Reaction, Severe, NON MRI COMPATIBLE DEFIB 10/22/15 LRS, 11/02/16) *MDRO Multi-Drug Resistant Organism (Verified Adverse Reaction, Unknown, ESBL, 11/02/16) ESBL E. coli (abd. 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 coli (urine) - 03/08/16, 09/28/16, 10/19/16 Objective . Vital Signs Date Time Temp Pulse Resp B/P Pulse Ox O2 Delivery O2 Flow Rate FiO2 11/15/16 07:51 100 Nasal Cannula 3.00 11/15/16 06:00 60 11/15/16 04:00 60 11/15/16 04:00 95 Nasal Cannula 4.00 11/15/16 04:00 97.5 60 20 107/56 95 11/15/16 02:00 59 11/15/16 00:00 63 11/15/16 00:00 91 Nasal Cannula 4.00 11/15/16 00:00 97.5 63 20 111/56 91 11/14/16 22:19 22 11/14/16 22:00 63 11/14/16 21:40 99 Nasal Cannula 4.00 11/14/16 20:00 99 Nasal Cannula 4.00 11/14/16 20:00 97.5 62 24 121/60 99 11/14/16 20:00 62 11/14/16 18:00 62 11/14/16 16:00 61 11/14/16 16:00 97.9 61 28 120/57 98 11/14/16 16:00 99 Nasal Cannula 4.00 11/14/16 14:00 60 11/14/16 12:00 98.1 60 24 116/57 99 11/14/16 12:00 60 11/14/16 12:00 99 Nasal Cannula 6.00 11/14/16 10:00 66 11/14/16 11/14/16 11/15/16 15:00 23:00 07:00 Intake Total 1149 ml 959 ml 699 ml Output Total 350 ml 200 ml 275 ml Balance 799 ml 759 ml 424 ml Intake Oral 222 ml 120 ml 60 ml IV Total 927 ml 839 ml 639 ml Output Urine Total 350 ml 200 ml 275 ml # Bowel Movements 2 2 0 . Laboratory Tests Test 11/13/16 11/14/16 11/15/16 12:00 03:50 04:15 White Blood Count 7.9 TH/MM3 9.5 TH/MM3 6.3 TH/MM3 Red Blood Count 4.20 MIL/MM3 3.32 MIL/MM3 2.71 MIL/MM3 Hemoglobin 12.0 GM/DL 9.9 GM/DL 7.9 GM/DL Hematocrit 38.3 % 30.1 % 24.3 % Mean Corpuscular Volume 91.2 FL 90.7 FL 89.5 FL Mean Corpuscular Hemoglobin 28.5 PG 29.9 PG 29.0 PG Mean Corpuscular Hemoglobin 31.3 % 33.0 % 32.4 % Concent Red Cell Distribution Width 20.5 % 20.7 % 19.6 % Platelet Count 106 TH/MM3 94 TH/MM3 68 TH/MM3 Mean Platelet Volume 8.4 FL 7.9 FL 8.2 FL Neutrophils (%) (Auto) 92.3 % 88.4 % 87.3 % Lymphocytes (%) (Auto) 4.4 % 5.4 % 6.0 % Monocytes (%) (Auto) 0.7 % 5.7 % 6.6 % Eosinophils (%) (Auto) 0.4 % 0.4 % 0.0 % Basophils (%) (Auto) 2.2 % 0.1 % 0.1 % Neutrophils # (Auto) 7.3 TH/MM3 8.4 TH/MM3 5.5 TH/MM3 Lymphocytes # (Auto) 0.3 TH/MM3 0.5 TH/MM3 0.4 TH/MM3 Monocytes # (Auto) 0.1 TH/MM3 0.5 TH/MM3 0.4 TH/MM3 Eosinophils # (Auto) 0.0 TH/MM3 0.0 TH/MM3 0.0 TH/MM3 Basophils # (Auto) 0.2 TH/MM3 0.0 TH/MM3 0.0 TH/MM3 CBC Comment AUTO DIFF AUTO DIFF AUTO DIFF Differential Total Cells 100 Counted Neutrophils % (Manual) 71 % Band Neutrophils % 25 % Lymphocytes % 1 % Monocytes % 2 % Eosinophils % 1 % Neutrophils # (Manual) 7.6 TH/MM3 Differential Comment FINAL DIFF AUTO DIFF AUTO DIFF MANUAL CONFIRMED CONFIRMED Platelet Estimate LOW LOW LOW Platelet Morphology Comment NORMAL NORMAL NORMAL Basophilic Stippling [place] Ovalocytes 1+ 1+ Tear Drop Cells 1+ Laboratory Tests Test 11/13/16 11/13/16 11/13/16 11/13/16 12:00 12:54 14:29 18:05 Sodium Level 141 MEQ/L Potassium Level 4.2 MEQ/L Chloride Level 100 MEQ/L Carbon Dioxide Level 29.2 MEQ/L Anion Gap 12 MEQ/L Blood Urea Nitrogen 23 MG/DL Creatinine 1.20 MG/DL Estimat Glomerular Filtration 59 ML/MIN Rate Random Glucose 71 MG/DL Calcium Level 8.9 MG/DL Phosphorus Level 0.6 MG/DL Magnesium Level 1.4 MG/DL Total Bilirubin 1.2 MG/DL Aspartate Amino Transf 30 U/L (AST/SGOT) Alanine Aminotransferase 47 U/L (ALT/SGPT) Alkaline Phosphatase 114 U/L Total Creatine Kinase 20 U/L 12 U/L Troponin I 0.02 NG/ML B-Type Natriuretic Peptide 351 PG/ML Total Protein 6.1 GM/DL Albumin 2.7 GM/DL Thyroid Stimulating Hormone 1.020 uIU/ML 3rd Gen Lactic Acid Level 1.8 mmol/L 1.1 mmol/L Ammonia 14 MCMOL/L Test 11/13/16 11/14/16 11/15/16 23:00 03:50 04:15 Phosphorus Level 5.0 MG/DL 4.1 MG/DL 2.0 MG/DL Magnesium Level 2.3 MG/DL 2.2 MG/DL 2.1 MG/DL Troponin I 0.03 NG/ML 0.03 NG/ML Sodium Level 139 MEQ/L 140 MEQ/L Potassium Level 3.5 MEQ/L 2.8 MEQ/L Chloride Level 101 MEQ/L 103 MEQ/L Carbon Dioxide Level 29.7 MEQ/L 29.4 MEQ/L Anion Gap 8 MEQ/L 8 MEQ/L Blood Urea Nitrogen 20 MG/DL 12 MG/DL Creatinine 1.15 MG/DL 0.71 MG/DL Estimat Glomerular Filtration 62 ML/MIN 108 ML/MIN Rate Random Glucose 155 MG/DL 120 MG/DL Lactic Acid Level 0.8 mmol/L Calcium Level 7.9 MG/DL 8.0 MG/DL Total Bilirubin 0.9 MG/DL 0.6 MG/DL Aspartate Amino Transf 24 U/L 16 U/L (AST/SGOT) Alanine Aminotransferase 39 U/L 30 U/L (ALT/SGPT) Alkaline Phosphatase 83 U/L 68 U/L Total Protein 4.9 GM/DL 4.4 GM/DL Albumin 2.1 GM/DL 1.7 GM/DL Direct Bilirubin 0.2 MG/DL Indirect Bilirubin 0.4 MG/DL Microbiology Date/Time Procedure Status Source Growth 11/13/16 12:00 Aerobic Blood Culture - Preliminary Resulted Blood Peripheral Escherichia Coli 11/13/16 12:00 Anaerobic Blood Culture - Preliminary Resulted Gram Negative Reji 11/13/16 12:00 Aerobic Blood Culture Received Blood Peripheral Pending 11/13/16 12:00 Anaerobic Blood Culture Received Blood Peripheral Pending 11/13/16 12:05 Aerobic Blood Culture - Preliminary Resulted Blood Peripheral Gram Negative Reji 11/13/16 12:05 Anaerobic Blood Culture - Preliminary Resulted Gram Negative Reji Gram Positive Cocci 11/13/16 12:18 Legionella Antigen Ordered Urine Clean Catch Pending 11/13/16 12:18 Streptococcus pneumoniae Antigen (M Ordered Urine Catheterized Urine Pending 11/14/16 05:55 Legionella Antigen - Final Complete Urine Clean Catch PRESUMPTIVE NEGATIVE FOR LEGIONELLA P... 11/14/16 05:55 Streptococcus pneumoniae Antigen (M - Final Complete Urine Catheterized Urine PRESUMPTIVE NEGATIVE FOR STREPTOCOCCU... 11/14/16 10:45 Gram Stain - Final Resulted Sputum Expectorated Sputum 11/14/16 10:45 Sputum Culture Resulted Sputum Expectorated Sputum Pending 11/14/16 13:28 Aerobic Blood Culture Received Blood Other Pending 11/14/16 13:28 Anaerobic Blood Culture Received Blood Other Pending 11/14/16 15:15 Aerobic Blood Culture Received Blood Other Pending 11/14/16 15:15 Anaerobic Blood Culture Received Blood Other Pending 11/14/16 16:30 Aerobic Blood Culture Received Blood Other Pending 11/14/16 16:30 Anaerobic Blood Culture Received Blood Other Pending Imaging Chest X-Ray 11/14/16 1433 Signed Impressions: Service Date/Time: Monday, November 14, 2016 14:57 - CONCLUSION: 1. Interval placement of left internal jugular central venous line with no pneumothorax. 2. Abnormal opacity remains at the left lung base with probable effusion. Yohan Vera MD Abdomen/Pelvis CT 11/14/16 0000 Signed Impressions: Service Date/Time: Monday, November 14, 2016 21:20 - CONCLUSION: 1. Contracted gallbladder with calcified gallstones again noted. 2. Multiple anterior abdominal hernias again noted. 3. Nonspecific, nonobstructive bowel gas. 4. Mild consolidation in the lung bases. Yohan Vera MD CT Angiography 11/13/16 0000 Signed Impressions: Service Date/Time: Sunday, November 13, 2016 16:43 - CONCLUSION: 1. No pulmonary embolus. 2. Emphysematous change in the upper lungs and consolidation or atelectasis in the lower lungs. 3. 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 This finding is unchanged. 4. Multiple compression fractures in the thoracic spine. Salvatore Goddard MD Physical Exam GENERAL: Awake and alert, looks comfortable at rest. On nasal O2. Working with PT SKIN: Cool and dry, no generalized rash, no ecchymosis. HEENT: [place] conjunctivae, no petechia or hemorrhage. No scleral icterus. No injection or drainage. Nose without bleeding, or purulent drainage. Moist mucosa, no oral thrush. Throat without erythema. . NECK: Trachea midline. No JVD or lymphadenopathy. Supple, nontender, no meningeal signs. Line ok CARDIOVASCULAR: Regular rate and rhythm without murmurs, gallops, or rubs. AICD L upper chest fairly unremarkable RESPIRATORY: Coarse BS, decreased at bases GASTROINTESTINAL: Abdomen soft, non-tender, nondistended. Bowel sounds are present and normoactive. No guarding. MUSCULOSKELETAL: Extremities without clubbing, cyanosis, or edema. No calf tenderness. Negative Homans sign bilaterally. NEUROLOGICAL: Awake and alert. Cranial nerves II through XII intact. Motor and sensory grossly within normal limits. Normal speech. PSYCH: Calm and cooperative : Chavez in place, urine clear LINE: LIJ TLC with no evidence of infection Assessment & Plan Remarks IMPRESSION GNR sepsis on admission, with shock, source - C/O SOB, and some cough, ?PNA - UA ok - LFT ok - had E coli ESBL+ UTI last September - has AICD, site unremarkable Cardiomyopathy, CAD RECOMMENDATION Continue Meropenem Continue Vancomycin Also on Zithromax, change to oral Follow C/S Monitor progress Will adjust Abx once C/S available Emilia Houston MD Nov 15, 2016 08:46
[2016-11-15] MEDS: DOCUSATE SODIUM 100 MG CAP PO SCH ×2 (09:00→21:00)
[2016-11-15] MEDS: SODIUM CHLORIDE 0.9% FLUSH 5 ML FLUSH IVF SCH (09:00)
[2016-11-15] MEDS: AZITHROMYCIN 250 MG TAB PO SCH (09:50)
[2016-11-15] MEDS: VANCOMYCIN INJ 1,750 MG in SODIUM CHLORID 0.9% 500 ML INJ 500 ML IV SCH (11:36)
--- NOTE | 2016-11-15 13:58 | HHI.CCPN ---
Subjective Remarks/Hospital Course 76-year-old male. Date of admission 11/13/2016. Past medical history includes chronic warfarin usage, anxiety disorder, coronary artery disease, chronic atrial fibrillation/rate control, chronic low back pain, cardiomyopathy , cholelithiasis, chronic compression fractures of thoracic vertebrae, chronic constipation, COPD, depression, diverticulosis, hypertension, dyslipidemia, ITP , macrocytosis, TERRENCE, esophagitis. This is the patient's fourth hospitalizations since August 2016. Most recently patient was admitted for GI bleed. Patient is not felt well since discharge. He presents from his [facility] after waking up acutely short of breath with pyrexia and nonproductive cough Patient was on Coumadin with Coumadin-induced coagulopathy. Patient was put back on Coumadin and discharged back to assisted. Patient was seen at rest but distress and was given 100% nonrebreathing mask and transported to ED for evaluation. Chest x-ray revealed possible left lower lobe infiltrate. Patient became acutely hypotensive in the ED a central line was placed femorally by ED physician. Patient*norepinephrine drip and given 1 L normal saline bolus. Lactate within normal limits. He is transported to [facility] for evaluation at this facility. We are asked to admit this patient. 11/14: Currently afebrile. Currently nasal cannula. Appears most more comfortable left septic today. NorEpinephrine down to 4 g a minute. Blood cultures with gram-negative sherita/Escherichia coli. Kidney evaluation pending. UA clean. Subjective 11/15: Afebrile. Currently ON vasopressin. Weaning off today. Antibiotics adjusted per ID. More awake and alert and following commands. Objective Vital Signs Date Time Temp Pulse Resp B/P Pulse Ox O2 Delivery O2 Flow Rate FiO2 11/15/16 12:00 97.9 71 32 105/58 100 11/15/16 12:00 Nasal Cannula 2.00 11/14/16 04:00 35 Intake and Output 11/14/16 11/14/16 11/15/16 08:00 16:00 00:00 Intake Total 842 ml 1149 ml 959 ml Output Total 275 ml 350 ml 200 ml Balance 567 ml 799 ml 759 ml Result Diagram: 11/15/16 0415 11/15/16 0415 Other Results Microbiology Date/Time Procedure Status Source Growth 11/14/16 05:55 Legionella Antigen - Final Complete Urine Clean Catch PRESUMPTIVE NEGATIVE FOR LEGIONELLA P... 3/18/17 05:55 Streptococcus pneumoniae Antigen (M - Final Complete Urine Catheterized Urine PRESUMPTIVE NEGATIVE FOR STREPTOCOCCU... Imaging Last Impressions Chest X-Ray 11/14/16 0600 Signed Impressions: Service Date/Time: Monday, November 14, 2016 02:22 - CONCLUSION: 1. Cardiomegaly. Left ventricular calcifications probably related to prior infarct. Mild basilar airspace disease similar to November 13. Luis Antonio Dunn MD CT Angiography 11/13/16 0000 Signed Impressions: Service Date/Time: Sunday, November 13, 2016 16:43 - CONCLUSION: 1. No pulmonary embolus. 2. Emphysematous change in the upper lungs and consolidation or atelectasis in the lower lungs. 3. 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 This finding is unchanged. 4. Multiple compression fractures in the thoracic spine. Salvatore Goddard MD Objective Remarks GENERAL: 76-year-old male, critically ill currently a nonrebreather mask SKIN: Warm and dry. Positive ecchymosis bilateral upper and lower extremities HEAD: Atraumatic. Normocephalic. EYES: Pupils equal and round about 3 mm bilaterally and reactive. No scleral icterus. No injection or drainage. ENT: No nasal bleeding or discharge. Mucous membranes pink and moist. NECK: Trachea midline. No JVD. CARDIOVASCULAR: IR. Accu. S1, S2. No S4. Murmurs appreciated RESPIRATORY: Transient appears sounds clear with cough. Few crackles patient left lower lobe. No wheeze. GASTROINTESTINAL: Abdomen soft, non-tender, nondistended. Hypoactive bowel sounds appreciated MUSCULOSKELETAL: Extremities without significant peripheral edema. No obvious deformities. Right femoral TLC clean dry and intact NEUROLOGICAL: Awake and alert. No obvious cranial nerve deficits. Motor grossly within normal limits. Five out of 5 muscle strength in the arms and legs. Normal speech. Line: Central Venous Catheter Side: Right Location: Femoral A/P Assessment and Plan Neuro/psych: Anxiety depression Patient is on Escitalopram 10 mg by mouth daily for depression. This been continued Holding Klonopin so 0.5 mill grams by mouth twice a day Acetaminophen for fever [place]/morphine for pain management CV: Chronic atrial fibrillation Coronary artery disease status post LA 1987 Cardiomyopathy Congestive heart failure/systolic EF 35-40% 10/16 Hypertension Dyslipidemia Mildly aortic stenosis Severe septic shock 2-D echocardiogram 10/16 revealed EF 35-40% regional hypokinesis. Mild aortic stenosis Left ventricle: The cavity size was dilated. Wall thickness was normal. Systolic function was severely reduced. The estimated ejection fraction was in the range of 20% to 25%. Diffuse hypokinesis. Doppler parameters are consistent with abnormal left ventricular relaxation (grade 1 diastolic dysfunction). - Left atrium: The atrium was mildly dilated. - Right ventricle: Systolic function was reduced. Currently on vasopressin 0.4 units an hour. Continued stress dosed steroids Solu-Cortef wean to 50 mg every 8. Wean as clinically indicated over the next week Noted on Chronic prednisone use 20 milligrams daily. Holding Coreg 6.25 mg by mouth twice a day for hypertension in light of hypotension/vasopressin usage Continue amiodarone 200 mg by mouth daily for A. fib. Continue atorvastatin 10 mg daily for dyslipidemia Resp: Acute hypoxemic respiratory failure COPD Possible HCAP Currently on nasal cannula Will wean down as tolerated. Bronchodilator therapy every 6 hours and as needed Symbicort twice daily Follows with Dr. Villarreal See below or ID workup GI: History of GI bleed Morbid obesity Cholelithiasis Chronic abdominal pain Chronic constipation Diverticulosis Clear liquid diet. Advance as tolerated Protonix for GI prophylaxis. On Protonix 40 mg by mouth daily at home Colace/as needed Senokot for bowel regimen EGD from last admission - gastritis bx from antrum, normal endoscopy otherwise , retroflexed revealed no abnormalities, few diverticulosis in the sigmoid, normal surgical anastamosis, no active bleed, small polyp in the ascending colon removed by snare, the colon mucosa was otherwise normal, retroflexed views revealed internal hemorrhoids, small internal hemorrhoids, revealed no abnormalities of the rectum. : BPH Hypogonadism Will hold Flomax 0.4 susie grams by mouth daily. Chavez catheter for accurate I's and O's in a critically ill patient Endo: Sliding-scale insulin to maintain euglycemia. Accu-Cheks every 6 hours/low regimen Renal: Chronic kidney disease stage III Creatinine currently 1.2. Accurate I's and O's Monitor urine output closely Repeat BMP this a.m. Heme: Normocytic anemia history of ITP Chronic VKA use At home on Coumadin 2 mg by mouth daily. INR is currently 1.9. Monitor CBC/CMP daily. Daily INRs with pharmacy to manage. Chronically prednisone 20 mg daily for ITP.. Currently on Solu-Cortef stress dose and hypotensive. ID: Possible healthcare associated pneumonia Day 2 vancomycin/Zosyn. Zosyn discontinued by ID and started on Merrem Pertinent cultures 11/13 - blood cultures 2 - Escherichia coli Negative urine Legionella pneumococcal antigens and influenza MSK: Chronic compression fractures of thoracic vertebrae Chronic low back pain Calcium vitamin D at home. This is been held PT evaluate and treat FEN: Replace electrolytes as clinically indicated per ICU protocol Access - Utilized right femoral line Placed in ED by Dr. Schultz 11/13. Peripheral switch to IJ or discontinue able to wean off vasopressors shortly Prophylaxis - GI - Protonix - DVT - SCD/Coumadin pharmacy managing Critical Care: The total critical care time was 55 minutes. Time to perform other separately billable procedures was not included in the critical care time. Antony Coreas MD Nov 15, 2016 13:58
[2016-11-15] MEDS: VASOPRESSIN INJ 40 UNITS in DEXTROSE 5% IN WATER 100ML INJ 98 ML IV SCH ×2 (16:00)
[2016-11-15 16:22] LABS: POTASSIUM 3.6 MEQ/L (3.5-5.1)
[2016-11-15] MEDS: POTASSIUM PHOSPHATE INJ 30 MMOL in SODIUM CHLOR 0.9% 250 ML INJ 250 ML IV PRN (17:23)
[2016-11-15] MEDS: WARFARIN SOD 2 MG TAB PO SCH (17:24)
[2016-11-15] MEDS: ATORVASTATIN 10 MG TAB PO SCH (21:20)
[2016-11-16] VITALS (14 sets, daily range): BP systolic 97–119; BP diastolic 52–66; PULSE 69–90; RESP 22–28; TEMP 97.7–98.2; O2SAT 92–99
[2016-11-16] MEDS: HYDROCORTISONE SOD SUCCINATE 100 MG VIAL IV PUSH SCH ×3 (00:40→17:18)
[2016-11-16] MEDS: RESP: ALBUTEROL 2.5 MG/IPRATROPIUM 0.5 MG NEB (SCH) INH ×4 (03:32→20:30)
[2016-11-16] MEDS: CHLORHEXIDINE GLUCONATE 2 % 1 PACK (2 CLOTHS) TOP SCH (04:00)
[2016-11-16 04:29] LABS: AUTOMATED NEUTROPHIL # 6.7 TH/MM3 (1.8-7.7); BASOPHIL % 0.1 % (0.0-2.0); HEMATOCRIT 26.3 % (39.0-51.0); HEMO FLAGS DIFF FINAL; LYMPH % 7.5 % (9.0-44.0); LYMPHOCYTE # 0.6 TH/MM3 (1.0-4.8); MEAN CORPUSCULAR HEMOGLOBIN 29.8 PG (27.0-34.0); MEAN CORPUSCULAR HGB CONC 33.1 % (32.0-36.0); MONO % 7.7 % (0.0-8.0); NEUT % 84.7 % (16.0-70.0); PLATELET COUNT 110 TH/MM3 (150-450); RED BLOOD COUNT 2.92 MIL/MM3 (4.50-5.90); RED CELL DISTRIBUTION WIDTH 20.2 % (11.6-17.2)
[2016-11-16 04:36] LABS: PROTHROMBIN TIME - PATIENT 23.2 SEC (9.8-11.6)
--- NOTE | 2016-11-16 04:45 | RADRPT ---
EXAM DATE/TIME: 11/16/2016 03:33 [facility] COMPARISON: CHEST SINGLE AP, November 14, 2016, 14:57. INDICATIONS : Shortness of breath, possible pulmonary disease. MEDICAL HISTORY : Hypertension. Chronic obstructive pulmonary disease. SURGICAL HISTORY : Pacemaker. ENCOUNTER: Subsequent ACUITY: 4 - 6 days PAIN SCORE: 0/10 LOCATION: Bilateral chest FINDINGS: Bilateral effusions and left lower lobe consolidation noted. Cardiomegaly and aortic calcification. P acer/ICD device again noted. CONCLUSION: Increasing consolidation and bilateral effusions are suspected. Loc Campbell MD on November 16, 2016 at 4:43 Board Certified Radiologist. This report was verified electronically.
[2016-11-16 05:00] LABS: ALT (GPT) 32 U/L (12-78); ANION GAP 6 MEQ/L (5-15); AST (GOT) 17 U/L (15-37); BICARBONATE 28.7 MEQ/L (21.0-32.0); BLOOD UREA NITROGEN 13 MG/DL (7-18); CHLORIDE 108 MEQ/L (98-107); GLOMERULAR FILTRATION RATE 112 ML/MIN (>89); MAGNESIUM 1.9 MG/DL (1.5-2.5); POTASSIUM 3.8 MEQ/L (3.5-5.1); SODIUM (NA) 143 MEQ/L (136-145)
[2016-11-16 05:02] LABS: ALKALINE PHOSPHATASE 72 U/L (45-117); TOTAL BILIRUBIN ADULT 0.5 MG/DL (0.2-1.0)
[2016-11-16 05:32] LABS: CREATINE KINASE 10 U/L (39-308)
[2016-11-16] MEDS: SODIUM PHOSPHATE INJ 30 MMOL in SODIUM CHLOR 0.9% 250 ML INJ 240 ML IV PRN (06:39)
[2016-11-16] MEDS: MEROPENEM INJ 1,000 MG in SODIUM CHLORIDE 0.9% INJ 100 ML IV SCH ×3 (06:39→21:56)
[2016-11-16] MEDS: RESP: ALBUTEROL 2.5 MG/3 ML NEB (PRN) INH (06:50)
[2016-11-16] MEDS: MORPHINE SULFATE 4 MG/ML INJ IV PRN (06:54)
[2016-11-16] MEDS: INSULIN NovoLIN REGULAR SUPPLEMENTAL SCALE SQ SCH ×4 (07:00→20:08)
[2016-11-16] MEDS: MULTIVITAMINS/MINERALS THERAPEUTIC TAB PO SCH (08:19)
[2016-11-16] MEDS: CALCIUM/VITAMIN D 250 MG/125 U TAB PO SCH ×2 (08:20→20:08)
[2016-11-16] MEDS: AMIODARONE 200 MG TAB PO SCH (08:20)
[2016-11-16] MEDS: ESCITALOPRAM OXALATE 10 MG TAB PO SCH (08:20)
[2016-11-16] MEDS: DOCUSATE SODIUM 100 MG CAP PO SCH ×2 (08:20→20:08)
[2016-11-16] MEDS: PANTOPRAZOLE SODIUM 40 MG VIAL IV SCH (08:21)
[2016-11-16] MEDS: BUDESONIDE-FORMOTEROL 160/4.5 MCG INHALER INH SCH ×2 (08:21→20:12)
[2016-11-16] MEDS: ARTIFICIAL TEARS OPTH SOLN 15 ML BTL EACH EYE SCH ×3 (08:21→17:19)
[2016-11-16] MEDS: AZITHROMYCIN 250 MG TAB PO SCH (08:38)
[2016-11-16] MEDS: SODIUM CHLORIDE 0.9% FLUSH 5 ML FLUSH IVF SCH (08:38)
[2016-11-16] MEDS: SODIUM CHLORIDE 0.9% FLUSH 5 ML FLUSH IV FLUSH SCH ×2 (08:38→20:08)
[2016-11-16] MEDS ORDERED: BUMETANIDE INJ 1 MG/4 ML VIAL IV PUSH ONE (09:00)
--- NOTE | 2016-11-16 09:00 | HHI.CCPN ---
Subjective Remarks/Hospital Course 76-year-old male. Date of admission 11/13/2016. Past medical history includes chronic warfarin usage, anxiety disorder, coronary artery disease, chronic atrial fibrillation/rate control, chronic low back pain, cardiomyopathy , cholelithiasis, chronic compression fractures of thoracic vertebrae, chronic constipation, COPD, depression, diverticulosis, hypertension, dyslipidemia, ITP , macrocytosis, TERRENCE, esophagitis. This is the patient's fourth hospitalizations since August 2016. Most recently patient was admitted for GI bleed. Patient is not felt well since discharge. He presents from his [facility] after waking up acutely short of breath with pyrexia and nonproductive cough Patient was on Coumadin with Coumadin-induced coagulopathy. Patient was put back on Coumadin and discharged back to alf. Patient was seen at rest but distress and was given 100% nonrebreathing mask and transported to ED for evaluation. Chest x-ray revealed possible left lower lobe infiltrate. Patient became acutely hypotensive in the ED a central line was placed femorally by ED physician. Patient*norepinephrine drip and given 1 L normal saline bolus. Lactate within normal limits. He is transported to [facility] for evaluation at this facility. We are asked to admit this patient. 11/14: Currently afebrile. Currently nasal cannula. Appears most more comfortable left septic today. NorEpinephrine down to 4 g a minute. Blood cultures with gram-negative sherita/Escherichia coli. Kidney evaluation pending. UA clean. Subjective 11/15: Afebrile. Currently ON vasopressin. Weaning off today. Antibiotics adjusted per ID. More awake and alert and following commands. 11/16 Patient is on 2L oxygen with good sats. On Levophed 2 mics. Afebrile. Objective Vital Signs Date Time Temp Pulse Resp B/P Pulse Ox O2 Delivery O2 Flow Rate FiO2 11/16/16 07:42 97 Nasal Cannula 2.00 11/16/16 06:59 18 11/16/16 06:00 71 11/16/16 04:00 98.1 119/66 11/14/16 04:00 35 Intake and Output 11/15/16 11/15/16 11/16/16 08:00 16:00 00:00 Intake Total 699 ml 2207 ml 332 ml Output Total 275 ml 250 ml 225 ml Balance 424 ml 1957 ml 107 ml Result Diagram: 11/16/16 0335 11/16/16 0335 Other Results Laboratory Tests Test 11/15/16 11/16/16 14:30 03:35 Potassium Level 3.6 MEQ/L 3.8 MEQ/L Phosphorus Level 1.9 MG/DL 2.4 MG/DL White Blood Count 8.0 TH/MM3 Red Blood Count 2.92 MIL/MM3 Hemoglobin 8.7 GM/DL Hematocrit 26.3 % Mean Corpuscular Volume 90.0 FL Mean Corpuscular Hemoglobin 29.8 PG Mean Corpuscular Hemoglobin 33.1 % Concent Red Cell Distribution Width 20.2 % Platelet Count 110 TH/MM3 Mean Platelet Volume 8.3 FL Neutrophils (%) (Auto) 84.7 % Lymphocytes (%) (Auto) 7.5 % Monocytes (%) (Auto) 7.7 % Eosinophils (%) (Auto) 0.0 % Basophils (%) (Auto) 0.1 % Neutrophils # (Auto) 6.7 TH/MM3 Lymphocytes # (Auto) 0.6 TH/MM3 Monocytes # (Auto) 0.6 TH/MM3 Eosinophils # (Auto) 0.0 TH/MM3 Basophils # (Auto) 0.0 TH/MM3 CBC Comment DIFF FINAL Differential Comment Prothrombin Time 23.2 SEC Prothromb Time International 2.0 RATIO Ratio Sodium Level 143 MEQ/L Chloride Level 108 MEQ/L Carbon Dioxide Level 28.7 MEQ/L Anion Gap 6 MEQ/L Blood Urea Nitrogen 13 MG/DL Creatinine 0.69 MG/DL Estimat Glomerular Filtration 112 ML/MIN Rate Random Glucose 94 MG/DL Calcium Level 8.3 MG/DL Magnesium Level 1.9 MG/DL Total Bilirubin 0.5 MG/DL Aspartate Amino Transf 17 U/L (AST/SGOT) Alanine Aminotransferase 32 U/L (ALT/SGPT) Alkaline Phosphatase 72 U/L Total Creatine Kinase 10 U/L Total Protein 4.7 GM/DL Albumin 2.0 GM/DL Imaging Last Impressions Chest X-Ray 11/16/16 0600 Signed Impressions: Service Date/Time: Wednesday, November 16, 2016 03:33 - CONCLUSION: Increasing consolidation and bilateral effusions are suspected. Loc Campbell MD Abdomen/Pelvis CT 11/14/16 0000 Signed Impressions: Service Date/Time: Monday, November 14, 2016 21:20 - CONCLUSION: 1. Contracted gallbladder with calcified gallstones again noted. 2. Multiple anterior abdominal hernias again noted. 3. Nonspecific, nonobstructive bowel gas. 4. Mild consolidation in the lung bases. Yohan Vera MD CT Angiography 11/13/16 0000 Signed Impressions: Service Date/Time: Sunday, November 13, 2016 16:43 - CONCLUSION: 1. No pulmonary embolus. 2. Emphysematous change in the upper lungs and consolidation or atelectasis in the lower lungs. 3. 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 This finding is unchanged. 4. Multiple compression fractures in the thoracic spine. Salvatore Goddard MD Objective Remarks GENERAL: 76-year-old male, critically ill currently a nonrebreather mask SKIN: Warm and dry. Positive ecchymosis bilateral upper and lower extremities HEAD: Atraumatic. Normocephalic. EYES: Pupils equal and round about 3 mm bilaterally and reactive. No scleral icterus. No injection or drainage. ENT: No nasal bleeding or discharge. Mucous membranes pink and moist. NECK: Trachea midline. No JVD. CARDIOVASCULAR: IR. Accu. S1, S2. No S4. Murmurs appreciated RESPIRATORY: Transient appears sounds clear with cough. Few crackles patient left lower lobe. No wheeze. GASTROINTESTINAL: Abdomen soft, non-tender, nondistended. Hypoactive bowel sounds appreciated MUSCULOSKELETAL: Extremities without significant peripheral edema. No obvious deformities. Right femoral TLC clean dry and intact NEUROLOGICAL: Awake and alert. No obvious cranial nerve deficits. Motor grossly within normal limits. Five out of 5 muscle strength in the arms and legs. Normal speech. Line: Central Venous Catheter Side: Right Location: Femoral A/P Assessment and Plan Neuro/psych: Anxiety depression On Escitalopram 10 mg by mouth daily for depression. Klonopin 0.5 mg BID on hold Acetaminophen for fever [place]/morphine for pain management CV: Chronic atrial fibrillation Coronary artery disease status post OR 1987 Cardiomyopathy Congestive heart failure/systolic EF 35-40% 10/16 Hypertension Dyslipidemia Mildly aortic stenosis Severe septic shock 2-D echocardiogram 10/16 revealed EF 35-40% regional hypokinesis. Mild aortic stenosis Echo from 11/14:EF 20% to 25%. Diffuse hypokinesis. Grade 1 diastolic dysfunction. Wean off Levophed keep MAP>65mmHg Continued stress dosed steroids Solu-Cortef 50 mg every 8. on Chronic prednisone use 20 milligrams daily. Coreg 6.25 mg by mouth twice a day on hold Continue amiodarone 200 mg by mouth daily for A. fib. Continue atorvastatin 10 mg daily for dyslipidemia Resp: Acute hypoxemic respiratory failure COPD Possible HCAP Continue with oxygen keep sat >92% Bronchodilator therapy every 6 hours and as needed NIPPV PRN for resp distress Symbicort twice daily Pulm: Dr. Villarreal GI: History of GI bleed Morbid obesity Cholelithiasis Chronic abdominal pain Chronic constipation Diverticulosis On PO heart healthy diet Protonix for GI prophylaxis. Colace/as needed Senokot for bowel regimen EGD from last admission - gastritis bx from antrum, normal endoscopy otherwise , retroflexed revealed no abnormalities, few diverticulosis in the sigmoid, normal surgical anastamosis, no active bleed, small polyp in the ascending colon removed by snare, the colon mucosa was otherwise normal, retroflexed views revealed internal hemorrhoids, small internal hemorrhoids, revealed no abnormalities of the rectum. : BPH Hypogonadism Chronic kidney disease stage III Monitor renal function, I/O's, electrolytes replacement per protocol. Will need phos replacement today. Diurese with Bumex 1mg x1 Endo: Sliding-scale insulin to maintain euglycemia. Accu-Cheks every 6 hours/low regimen Heme: Normocytic anemia history of ITP Chronic VKA use At home on Coumadin 2 mg by mouth daily. INR 2.0 today Monitor CBC/CMP daily. Daily INRs with pharmacy to manage. Chronically prednisone 20 mg daily for ITP.. Currently on Solu-Cortef stress dose ID: Possible healthcare associated pneumonia Continue abx per ID( VAnco, Merrem, Azithromycin) monitor for signs of infections ( Fever, WBC) Pertinent cultures 11/13 - blood cultures : Escherichia coli, Group D Enterococcus, GNR Negative urine Legionella pneumococcal antigens and influenza MSK: Chronic compression fractures of thoracic vertebrae Chronic low back pain Calcium vitamin D at home. This is been held PT evaluate and treat Access - Left IJ placed 11/14 Prophylaxis - GI - Protonix - DVT - SCD/Coumadin pharmacy managing Level 3 Romero Santamaria MD Nov 16, 2016 09:00
--- NOTE | 2016-11-16 09:02 | HHI.IDPN ---
Subjective Subjective Remarks Notes reviewed Temps ok On nasal O2 at 2L Gets easily SOB CT A/P ok One BC with E coli and Enterococcus 2nd BC GNR no ID yet Repeat BC negative so far Echo thickened AV and MV, other valves not seen well Antibiotics Meropenem Vancomycin Zithromax Lines LIJ TLC - 11/14 Past Medical History CAD, cardiomyopathy Hypogonadism History of hypertension History of right lower extreme DVT 2010 Chronic kidney disease creatinine currently 1.2 Anticoagulation use Anxiety disorder Chronic atrial fibrillation Chronic low back pain Cholelithiasis Chronic compression fractures thoracic vertebrae COPD by diagnosis Depression NOS Diverticulosis Hypertension Dyslipidemia History of ITP Macrocytosis TERRENCE Esophagitis Past Surgical History AICD placement with battery replacement 2015 Pilonidal cyst resection Colon resection with colostomy for diverticulitis with colon perforation with takedown diverting colostomy Cataract Allergies: Coded Allergies: Quinidex Extentab (Verified Allergy, Severe, PLATELETT COUNT DECREASES/ BLINDNESS, 11/02/16) Niacin (Verified Allergy, Intermediate, RASH/ITCHING, 11/02/16) MRI PRECAUTION (Verified Adverse Reaction, Severe, NON MRI COMPATIBLE DEFIB 10/22/15 LRS, 11/02/16) *MDRO Multi-Drug Resistant Organism (Verified Adverse Reaction, Unknown, ESBL, 11/02/16) ESBL E. coli (abd. 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 coli (urine) - 03/08/16, 09/28/16, 10/19/16 Objective . Vital Signs Date Time Temp Pulse Resp B/P Pulse Ox O2 Delivery O2 Flow Rate FiO2 11/16/16 07:42 97 Nasal Cannula 2.00 11/16/16 06:59 18 11/16/16 06:00 71 11/16/16 04:00 94 Nasal Cannula 2.00 11/16/16 04:00 98.1 71 24 119/66 96 11/16/16 04:00 71 11/16/16 02:00 69 11/16/16 00:00 94 Nasal Cannula 2.00 11/16/16 00:00 70 11/16/16 00:00 98.2 70 28 106/57 94 11/15/16 22:00 79 11/15/16 21:12 98 Nasal Cannula 2.00 11/15/16 20:00 72 11/15/16 20:00 96 Nasal Cannula 2.00 11/15/16 20:00 98.0 72 24 102/51 96 11/15/16 18:00 72 11/15/16 16:00 99 Nasal Cannula 2.00 11/15/16 16:00 64 11/15/16 16:00 98.7 64 25 100/54 99 11/15/16 14:00 69 11/15/16 12:00 97.9 71 32 105/58 100 11/15/16 12:00 71 11/15/16 12:00 100 Nasal Cannula 2.00 11/15/16 10:00 63 11/15/16 11/15/16 11/16/16 15:00 23:00 07:00 Intake Total 2207 ml 332 ml 292 ml Output Total 250 ml 225 ml 350 ml Balance 1957 ml 107 ml -58 ml Intake Oral 888 ml 100 ml 120 ml IV Total 1319 ml 232 ml 172 ml Output Urine Total 250 ml 225 ml 350 ml Stool Total 0 ml # Bowel Movements 0 0 0 . Laboratory Tests Test 11/15/16 11/16/16 04:15 03:35 White Blood Count 6.3 TH/MM3 8.0 TH/MM3 Red Blood Count 2.71 MIL/MM3 2.92 MIL/MM3 Hemoglobin 7.9 GM/DL 8.7 GM/DL Hematocrit 24.3 % 26.3 % Mean Corpuscular Volume 89.5 FL 90.0 FL Mean Corpuscular Hemoglobin 29.0 PG 29.8 PG Mean Corpuscular Hemoglobin 32.4 % 33.1 % Concent Red Cell Distribution Width 19.6 % 20.2 % Platelet Count 68 TH/MM3 110 TH/MM3 Mean Platelet Volume 8.2 FL 8.3 FL Neutrophils (%) (Auto) 87.3 % 84.7 % Lymphocytes (%) (Auto) 6.0 % 7.5 % Monocytes (%) (Auto) 6.6 % 7.7 % Eosinophils (%) (Auto) 0.0 % 0.0 % Basophils (%) (Auto) 0.1 % 0.1 % Neutrophils # (Auto) 5.5 TH/MM3 6.7 TH/MM3 Lymphocytes # (Auto) 0.4 TH/MM3 0.6 TH/MM3 Monocytes # (Auto) 0.4 TH/MM3 0.6 TH/MM3 Eosinophils # (Auto) 0.0 TH/MM3 0.0 TH/MM3 Basophils # (Auto) 0.0 TH/MM3 0.0 TH/MM3 CBC Comment AUTO DIFF DIFF FINAL Differential Comment AUTO DIFF CONFIRMED Platelet Estimate LOW Platelet Morphology Comment NORMAL Basophilic Stippling FAINT Tear Drop Cells 1+ Ovalocytes 1+ Laboratory Tests Test 11/15/16 11/15/16 11/16/16 04:15 14:30 03:35 Sodium Level 140 MEQ/L 143 MEQ/L Potassium Level 2.8 MEQ/L 3.6 MEQ/L 3.8 MEQ/L Chloride Level 103 MEQ/L 108 MEQ/L Carbon Dioxide Level 29.4 MEQ/L 28.7 MEQ/L Anion Gap 8 MEQ/L 6 MEQ/L Blood Urea Nitrogen 12 MG/DL 13 MG/DL Creatinine 0.71 MG/DL 0.69 MG/DL Estimat Glomerular Filtration 108 ML/MIN 112 ML/MIN Rate Random Glucose 120 MG/DL 94 MG/DL Calcium Level 8.0 MG/DL 8.3 MG/DL Phosphorus Level 2.0 MG/DL 1.9 MG/DL 2.4 MG/DL Magnesium Level 2.1 MG/DL 1.9 MG/DL Total Bilirubin 0.6 MG/DL 0.5 MG/DL Direct Bilirubin 0.2 MG/DL Indirect Bilirubin 0.4 MG/DL Aspartate Amino Transf 16 U/L 17 U/L (AST/SGOT) Alanine Aminotransferase 30 U/L 32 U/L (ALT/SGPT) Alkaline Phosphatase 68 U/L 72 U/L Total Protein 4.4 GM/DL 4.7 GM/DL Albumin 1.7 GM/DL 2.0 GM/DL Total Creatine Kinase 10 U/L Microbiology Date/Time Procedure Status Source Growth 11/13/16 12:00 Aerobic Blood Culture - Preliminary Resulted Blood Peripheral Escherichia Coli 11/13/16 12:00 Anaerobic Blood Culture - Preliminary Resulted Gram Negative Reji 11/13/16 12:00 Aerobic Blood Culture Received Blood Peripheral Pending 11/13/16 12:00 Anaerobic Blood Culture Received Blood Peripheral Pending 11/13/16 12:05 Aerobic Blood Culture - Preliminary Resulted Blood Peripheral Gram Negative Reji 11/13/16 12:05 Anaerobic Blood Culture - Preliminary Resulted Gram Negative Reji Group D Enterococcus 11/13/16 12:18 Legionella Antigen Ordered Urine Clean Catch Pending 11/13/16 12:18 Streptococcus pneumoniae Antigen (M Ordered Urine Catheterized Urine Pending 11/14/16 05:55 Legionella Antigen - Final Complete Urine Clean Catch PRESUMPTIVE NEGATIVE FOR LEGIONELLA P... 11/14/16 05:55 Streptococcus pneumoniae Antigen (M - Final Complete Urine Catheterized Urine PRESUMPTIVE NEGATIVE FOR STREPTOCOCCU... 11/14/16 10:45 Gram Stain - Final Resulted Sputum Expectorated Sputum 11/14/16 10:45 Sputum Culture - Preliminary Resulted Sputum Expectorated Sputum HEAVY GROWTH NORMAL RESPIRATORY MARY... 11/14/16 13:28 Aerobic Blood Culture Received Blood Other Pending 11/14/16 13:28 Anaerobic Blood Culture Received Blood Other Pending 11/14/16 15:15 Aerobic Blood Culture - Preliminary Resulted Blood Other NO GROWTH IN 1 DAY 11/14/16 15:15 Anaerobic Blood Culture - Preliminary Resulted Blood Other NO GROWTH IN 1 DAY 11/14/16 16:30 Aerobic Blood Culture - Preliminary Resulted Blood Other NO GROWTH IN 1 DAY 11/14/16 16:30 Anaerobic Blood Culture - Preliminary Resulted Blood Other NO GROWTH IN 1 DAY Imaging Chest X-Ray 11/16/16 0600 Signed Impressions: Service Date/Time: Wednesday, November 16, 2016 03:33 - CONCLUSION: Increasing consolidation and bilateral effusions are suspected. Loc Campbell MD Chest X-Ray 11/14/16 1433 Signed Impressions: Service Date/Time: Monday, November 14, 2016 14:57 - CONCLUSION: 1. Interval placement of left internal jugular central venous line with no pneumothorax. 2. Abnormal opacity remains at the left lung base with probable effusion. Yohan Vera MD Chest X-Ray 11/14/16 1433 Signed Impressions: Service Date/Time: Monday, November 14, 2016 14:57 - CONCLUSION: 1. Interval placement of left internal jugular central venous line with no pneumothorax. 2. Abnormal opacity remains at the left lung base with probable effusion. Yohan Vera MD Abdomen/Pelvis CT 11/14/16 0000 Signed Impressions: Service Date/Time: Monday, November 14, 2016 21:20 - CONCLUSION: 1. Contracted gallbladder with calcified gallstones again noted. 2. Multiple anterior abdominal hernias again noted. 3. Nonspecific, nonobstructive bowel gas. 4. Mild consolidation in the lung bases. Yohan Vera MD CT Angiography 11/13/16 0000 Signed Impressions: Service Date/Time: Sunday, November 13, 2016 16:43 - CONCLUSION: 1. No pulmonary embolus. 2. Emphysematous change in the upper lungs and consolidation or atelectasis in the lower lungs. 3. 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 This finding is unchanged. 4. Multiple compression fractures in the thoracic spine. Salvatore Goddard MD Physical Exam GENERAL: Awake and alert, looks comfortable at rest. On nasal O2. Working with PT SKIN: Cool and dry, no generalized rash HEENT: [place] conjunctivae, no petechia or hemorrhage. No scleral icterus. No injection or drainage. Moist mucosa, no oral thrush. . NECK: Trachea midline. No JVD or lymphadenopathy. Supple, nontender, no meningeal signs. Line ok CARDIOVASCULAR: Regular rate and rhythm without murmurs, gallops, or rubs. AICD L upper chest fairly unremarkable RESPIRATORY: Coarse BS, decreased at bases GASTROINTESTINAL: Abdomen soft, non-tender, nondistended. Bowel sounds are present and normoactive. No guarding. MUSCULOSKELETAL: Extremities without clubbing, cyanosis, or edema. No calf tenderness. Negative Homans sign bilaterally. NEUROLOGICAL: Grossly non-focal PSYCH: Calm and cooperative : Chavez in place, urine clear LINE: LIJ TLC with no evidence of infection Assessment & Plan Remarks IMPRESSION GNR sepsis on admission, with shock, source - C/O SOB, and some cough, ?PNA - UA ok - LFT ok - had E coli ESBL+ UTI last September - has AICD, site unremarkable Cardiomyopathy, CAD RECOMMENDATION Continue Meropenem Continue Vancomycin Also on Zithromax Follow C/S Monitor progress Will adjust Abx once C/S available Check BNP Emilia Houston MD Nov 16, 2016 09:02
[2016-11-16] MEDS: VANCOMYCIN INJ 1,750 MG in SODIUM CHLORID 0.9% 500 ML INJ 500 ML IV SCH (11:20)
[2016-11-16] MEDS: VASOPRESSIN INJ 40 UNITS in DEXTROSE 5% IN WATER 100ML INJ 98 ML IV SCH ×2 (16:00)
[2016-11-16] MEDS: WARFARIN SOD 1 MG TAB PO SCH (17:18)
[2016-11-16] MEDS: ATORVASTATIN 10 MG TAB PO SCH (20:08)
[2016-11-17] VITALS (14 sets, daily range): BP systolic 87–125; BP diastolic 48–61; PULSE 70–91; RESP 22–33; TEMP 98.2–99.1; O2SAT 93–100
[2016-11-17] MEDS: RESP: ALBUTEROL 2.5 MG/IPRATROPIUM 0.5 MG NEB (SCH) INH ×3 (03:11→15:46)
[2016-11-17] MEDS: CHLORHEXIDINE GLUCONATE 2 % 1 PACK (2 CLOTHS) TOP SCH (04:00)
[2016-11-17 04:09] LABS: AUTOMATED NEUTROPHIL # 3.9 TH/MM3 (1.8-7.7); BASOPHIL % 0.4 % (0.0-2.0); EOSINOPHIL % 0.2 % (0.0-4.0); HEMATOCRIT 24.4 % (39.0-51.0); LYMPH % 19.5 % (9.0-44.0); LYMPHOCYTE # 1.1 TH/MM3 (1.0-4.8); MEAN CORPUSCULAR HEMOGLOBIN 29.3 PG (27.0-34.0); MEAN CORPUSCULAR HGB CONC 32.5 % (32.0-36.0); MONO % 9.9 % (0.0-8.0); PLATELET COUNT 103 TH/MM3 (150-450); RED BLOOD COUNT 2.71 MIL/MM3 (4.50-5.90); RED CELL DISTRIBUTION WIDTH 19.9 % (11.6-17.2); WHITE BLOOD COUNT 5.5 TH/MM3 (4.0-11.0)
[2016-11-17 04:14] LABS: HEMO FLAGS AUTO DIFF
[2016-11-17 04:15] LABS: INTERNATIONAL NORMALIZED RATIO 2.3 RATIO; PROTHROMBIN TIME - PATIENT 26.8 SEC (9.8-11.6)
[2016-11-17 04:38] LABS: BICARBONATE 29.8 MEQ/L (21.0-32.0); MAGNESIUM 1.8 MG/DL (1.5-2.5)
[2016-11-17 04:48] LABS: POTASSIUM 3.3 MEQ/L (3.5-5.1)
[2016-11-17 05:39] LABS: OVALOCYTES 1+ (NORMAL); SCAN/DIFF AUTO DIFF CONFIRMED
[2016-11-17] MEDS: POTASSIUM PHOSPHATE INJ 30 MMOL in SODIUM CHLOR 0.9% 250 ML INJ 250 ML IV PRN (06:54)
[2016-11-17] MEDS: INSULIN NovoLIN REGULAR SUPPLEMENTAL SCALE SQ SCH ×4 (06:57→20:55)
[2016-11-17] MEDS: MEROPENEM INJ 1,000 MG in SODIUM CHLORIDE 0.9% INJ 100 ML IV SCH ×3 (07:20→20:45)
--- NOTE | 2016-11-17 08:11 | HHI.CCPN ---
Subjective Remarks/Hospital Course 76-year-old male. Date of admission 11/13/2016. Past medical history includes chronic warfarin usage, anxiety disorder, coronary artery disease, chronic atrial fibrillation/rate control, chronic low back pain, cardiomyopathy , cholelithiasis, chronic compression fractures of thoracic vertebrae, chronic constipation, COPD, depression, diverticulosis, hypertension, dyslipidemia, ITP , macrocytosis, TERRENCE, esophagitis. This is the patient's fourth hospitalizations since August 2016. Most recently patient was admitted for GI bleed. Patient is not felt well since discharge. He presents from his ECF after waking up acutely short of breath with pyrexia and nonproductive cough Patient was on Coumadin with Coumadin-induced coagulopathy. Patient was put back on Coumadin and discharged back to snf. Patient was seen at rest but distress and was given 100% nonrebreathing mask and transported to ED for evaluation. Chest x-ray revealed possible left lower lobe infiltrate. Patient became acutely hypotensive in the ED a central line was placed femorally by ED physician. Patient*norepinephrine drip and given 1 L normal saline bolus. Lactate within normal limits. He is transported to [facility] for evaluation at this facility. We are asked to admit this patient. 11/14: Currently afebrile. Currently nasal cannula. Appears most more comfortable left septic today. NorEpinephrine down to 4 g a minute. Blood cultures with gram-negative sherita/Escherichia coli. Kidney evaluation pending. UA clean. Subjective 11/15: Afebrile. Currently ON vasopressin. Weaning off today. Antibiotics adjusted per ID. More awake and alert and following commands. 11/16 Patient is on 2L oxygen with good sats. On Levophed 2 mics. Afebrile. 11/17 No acute events overnight. Off Levophed. On 2L oxygen with good sats. Objective Vital Signs Date Time Temp Pulse Resp B/P Pulse Ox O2 Delivery O2 Flow Rate FiO2 11/17/16 07:51 100 Nasal Cannula 2.00 11/17/16 06:00 72 11/17/16 04:00 98.4 22 125/61 11/14/16 04:00 35 Intake and Output 11/16/16 11/16/16 11/17/16 08:00 16:00 00:00 Intake Total 292 ml 1108 ml 120 ml Output Total 350 ml 2100 ml 400 ml Balance -58 ml -992 ml -280 ml Result Diagram: 11/17/16 0230 11/17/16 0230 Other Results Laboratory Tests Test 11/16/16 11/17/16 17:04 02:30 Phosphorus Level 2.9 MG/DL 2.0 MG/DL White Blood Count 5.5 TH/MM3 Red Blood Count 2.71 MIL/MM3 Hemoglobin 7.9 GM/DL Hematocrit 24.4 % Mean Corpuscular Volume 90.0 FL Mean Corpuscular Hemoglobin 29.3 PG Mean Corpuscular Hemoglobin 32.5 % Concent Red Cell Distribution Width 19.9 % Platelet Count 103 TH/MM3 Mean Platelet Volume 9.1 FL Neutrophils (%) (Auto) 70.0 % Lymphocytes (%) (Auto) 19.5 % Monocytes (%) (Auto) 9.9 % Eosinophils (%) (Auto) 0.2 % Basophils (%) (Auto) 0.4 % Neutrophils # (Auto) 3.9 TH/MM3 Lymphocytes # (Auto) 1.1 TH/MM3 Monocytes # (Auto) 0.6 TH/MM3 Eosinophils # (Auto) 0.0 TH/MM3 Basophils # (Auto) 0.0 TH/MM3 CBC Comment AUTO DIFF Differential Comment AUTO DIFF CONFIRMED Ovalocytes 1+ Prothrombin Time 26.8 SEC Prothromb Time International 2.3 RATIO Ratio Sodium Level 144 MEQ/L Potassium Level 3.3 MEQ/L Chloride Level 107 MEQ/L Carbon Dioxide Level 29.8 MEQ/L Anion Gap 7 MEQ/L Blood Urea Nitrogen 13 MG/DL Creatinine 0.66 MG/DL Estimat Glomerular Filtration 118 ML/MIN Rate Random Glucose 69 MG/DL Calcium Level 7.9 MG/DL Magnesium Level 1.8 MG/DL Imaging Last Impressions Chest X-Ray 11/16/16 0600 Signed Impressions: Service Date/Time: Wednesday, November 16, 2016 03:33 - CONCLUSION: Increasing consolidation and bilateral effusions are suspected. Loc Campbell MD Abdomen/Pelvis CT 11/14/16 0000 Signed Impressions: Service Date/Time: Monday, November 14, 2016 21:20 - CONCLUSION: 1. Contracted gallbladder with calcified gallstones again noted. 2. Multiple anterior abdominal hernias again noted. 3. Nonspecific, nonobstructive bowel gas. 4. Mild consolidation in the lung bases. Yohan Vera MD CT Angiography 11/13/16 0000 Signed Impressions: Service Date/Time: Sunday, November 13, 2016 16:43 - CONCLUSION: 1. No pulmonary embolus. 2. Emphysematous change in the upper lungs and consolidation or atelectasis in the lower lungs. 3. 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 This finding is unchanged. 4. Multiple compression fractures in the thoracic spine. Salvatore Goddard MD Objective Remarks GENERAL: 76-year-old male lying in bed in NAD SKIN: Warm and dry. Positive ecchymosis bilateral upper and lower extremities HEAD: Atraumatic. Normocephalic. EYES: Pupils equal and round about 3 mm bilaterally and reactive. No scleral icterus. No injection or drainage. ENT: No nasal bleeding or discharge. Mucous membranes pink and moist. NECK: Trachea midline. No JVD. CARDIOVASCULAR: IR. Accu. S1, S2. No S4. Murmurs appreciated RESPIRATORY: Transient appears sounds clear with cough. Few crackles patient left lower lobe. No wheeze. GASTROINTESTINAL: Abdomen soft, non-tender, nondistended. Hypoactive bowel sounds appreciated MUSCULOSKELETAL: Extremities without significant peripheral edema. No obvious deformities. NEUROLOGICAL: Awake and alert. No obvious cranial nerve deficits. Motor grossly within normal limits. Five out of 5 muscle strength in the arms and legs. Normal speech. Line: Central Venous Catheter Side: Right Location: Femoral A/P Assessment and Plan Neuro/psych: Anxiety depression On Escitalopram 10 mg by mouth daily for depression. Klonopin 0.5 mg BID on hold Acetaminophen for fever [place]/morphine for pain management CV: Chronic atrial fibrillation Coronary artery disease status post [place] 1987 Cardiomyopathy Congestive heart failure/systolic EF 35-40% 10/16 Hypertension Dyslipidemia Mildly aortic stenosis Severe septic shock 2-D echocardiogram 10/16 revealed EF 35-40% regional hypokinesis. Mild aortic stenosis Echo from 11/14:EF 20% to 25%. Diffuse hypokinesis. Grade 1 diastolic dysfunction. Off Levophed keep MAP>65mmHg Decrease Solu-Cortef 50 mg Q12. on Chronic prednisone use 20 milligrams daily. Coreg 6.25 mg by mouth twice a day on hold Continue amiodarone 200 mg by mouth daily for A. fib. Continue atorvastatin 10 mg daily for dyslipidemia Resp: Acute hypoxemic respiratory failure COPD Possible HCAP Continue with oxygen keep sat >92% Bronchodilator therapy every 6 hours and as needed NIPPV PRN for resp distress Symbicort twice daily Pulm: Dr. Villarreal GI: History of GI bleed Morbid obesity Cholelithiasis Chronic abdominal pain Chronic constipation Diverticulosis On PO heart healthy diet Protonix for GI prophylaxis. Colace/as needed Senokot for bowel regimen EGD from last admission - gastritis bx from antrum, normal endoscopy otherwise , retroflexed revealed no abnormalities, few diverticulosis in the sigmoid, normal surgical anastamosis, no active bleed, small polyp in the ascending colon removed by snare, the colon mucosa was otherwise normal, retroflexed views revealed internal hemorrhoids, small internal hemorrhoids, revealed no abnormalities of the rectum. : BPH Hypogonadism Chronic kidney disease stage III Monitor renal function, I/O's, electrolytes replacement per protocol. Will need K, phos replacement today. Diurese with Bumex 1mg x1 Endo: Sliding-scale insulin to maintain euglycemia. Accu-Cheks every 6 hours/low regimen Heme: Normocytic anemia history of ITP Chronic VKA use At home on Coumadin 2 mg by mouth daily. INR 2.3 today Monitor CBC/CMP daily. Daily INRs with pharmacy to manage. Chronically prednisone 20 mg daily for ITP.. Currently on Solu-Cortef stress dose ID: Possible healthcare associated pneumonia Continue abx per ID( VAnco, Merrem, Azithromycin) monitor for signs of infections ( Fever, WBC) Pertinent cultures 11/13 - blood cultures : Escherichia coli, Group D Enterococcus, GNR Negative urine Legionella pneumococcal antigens and influenza MSK: Chronic compression fractures of thoracic vertebrae Chronic low back pain Calcium vitamin D at home. This is been held PT evaluate and treat Access - Left IJ placed 11/14 Prophylaxis - GI - Protonix - DVT - SCD/Coumadin pharmacy managing Level 3 Romero Santamaria MD Nov 17, 2016 08:11
[2016-11-17] MEDS: DOCUSATE SODIUM 100 MG CAP PO SCH ×2 (09:00→20:44)
[2016-11-17] MEDS ORDERED: BUMETANIDE INJ 1 MG/4 ML VIAL IV PUSH ONE (09:15)
--- NOTE | 2016-11-17 09:24 | HHI.IDPN ---
Subjective Subjective Remarks Notes reviewed Temps ok On nasal O2 at 2L Gets easily SOB CT A/P ok One BC with E coli ESBL, and Providencia 2nd BC with Providencia and Enterococcus Repeat BC negative so far Echo thickened AV and MV, other valves not seen well Antibiotics Meropenem Vancomycin Zithromax Lines LIJ TLC - 11/14 Past Medical History CAD, cardiomyopathy Hypogonadism History of hypertension History of right lower extreme DVT 2010 Chronic kidney disease creatinine currently 1.2 Anticoagulation use Anxiety disorder Chronic atrial fibrillation Chronic low back pain Cholelithiasis Chronic compression fractures thoracic vertebrae COPD by diagnosis Depression NOS Diverticulosis Hypertension Dyslipidemia History of ITP Macrocytosis TERRENCE Esophagitis Past Surgical History AICD placement with battery replacement 2016 Pilonidal cyst resection Colon resection with colostomy for diverticulitis with colon perforation with takedown diverting colostomy Cataract Allergies: Coded Allergies: Quinidex Extentab (Verified Allergy, Severe, PLATELETT COUNT DECREASES/ BLINDNESS, 11/02/16) Niacin (Verified Allergy, Intermediate, RASH/ITCHING, 11/02/16) MRI PRECAUTION (Verified Adverse Reaction, Severe, NON MRI COMPATIBLE DEFIB 10/22/15 LRS, 11/02/16) *MDRO Multi-Drug Resistant Organism (Verified Adverse Reaction, Unknown, ESBL, 11/02/16) ESBL E. coli (abd. 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 coli (urine) - 03/08/16, 09/28/16, 10/19/16 Objective . Vital Signs Date Time Temp Pulse Resp B/P Pulse Ox O2 Delivery O2 Flow Rate FiO2 11/17/16 07:51 100 Nasal Cannula 2.00 11/17/16 06:00 72 11/17/16 04:00 97 Nasal Cannula 2.00 11/17/16 04:00 70 11/17/16 04:00 98.4 70 22 125/61 97 11/17/16 02:00 72 11/17/16 00:00 75 11/17/16 00:00 98.4 75 22 113/57 94 11/17/16 00:00 94 Nasal Cannula 2.00 11/16/16 22:00 87 11/16/16 20:31 94 Nasal Cannula 2.00 11/16/16 20:00 79 11/16/16 20:00 95 Nasal Cannula 2.00 11/16/16 20:00 97.8 79 23 112/62 95 11/16/16 18:00 78 11/16/16 16:00 97.7 83 22 97/54 92 11/16/16 16:00 83 11/16/16 16:00 92 Nasal Cannula 2.00 11/16/16 14:00 83 11/16/16 12:00 98.1 81 25 97/52 99 11/16/16 12:00 90 11/16/16 12:00 99 Nasal Cannula 2.00 11/16/16 10:00 80 11/16/16 11/16/16 11/17/16 15:00 23:00 07:00 Intake Total 1108 ml 120 ml Output Total 2100 ml 400 ml 275 ml Balance -992 ml -280 ml -275 ml Intake Oral 600 ml 120 ml IV Total 508 ml Output Urine Total 2100 ml 400 ml 275 ml # Bowel Movements 0 . Laboratory Tests Test 11/16/16 11/17/16 03:35 02:30 White Blood Count 8.0 TH/MM3 5.5 TH/MM3 Red Blood Count 2.92 MIL/MM3 2.71 MIL/MM3 Hemoglobin 8.7 GM/DL 7.9 GM/DL Hematocrit 26.3 % 24.4 % Mean Corpuscular Volume 90.0 FL 90.0 FL Mean Corpuscular Hemoglobin 29.8 PG 29.3 PG Mean Corpuscular Hemoglobin 33.1 % 32.5 % Concent Red Cell Distribution Width 20.2 % 19.9 % Platelet Count 110 TH/MM3 103 TH/MM3 Mean Platelet Volume 8.3 FL 9.1 FL Neutrophils (%) (Auto) 84.7 % 70.0 % Lymphocytes (%) (Auto) 7.5 % 19.5 % Monocytes (%) (Auto) 7.7 % 9.9 % Eosinophils (%) (Auto) 0.0 % 0.2 % Basophils (%) (Auto) 0.1 % 0.4 % Neutrophils # (Auto) 6.7 TH/MM3 3.9 TH/MM3 Lymphocytes # (Auto) 0.6 TH/MM3 1.1 TH/MM3 Monocytes # (Auto) 0.6 TH/MM3 0.6 TH/MM3 Eosinophils # (Auto) 0.0 TH/MM3 0.0 TH/MM3 Basophils # (Auto) 0.0 TH/MM3 0.0 TH/MM3 CBC Comment DIFF FINAL AUTO DIFF Differential Comment AUTO DIFF CONFIRMED Ovalocytes 1+ Laboratory Tests Test 11/15/16 11/16/16 11/16/16 11/17/16 14:30 03:35 17:04 02:30 Potassium Level 3.6 MEQ/L 3.8 MEQ/L 3.3 MEQ/L Phosphorus Level 1.9 MG/DL 2.4 MG/DL 2.9 MG/DL 2.0 MG/DL Sodium Level 143 MEQ/L 144 MEQ/L Chloride Level 108 MEQ/L 107 MEQ/L Carbon Dioxide Level 28.7 MEQ/L 29.8 MEQ/L Anion Gap 6 MEQ/L 7 MEQ/L Blood Urea Nitrogen 13 MG/DL 13 MG/DL Creatinine 0.69 MG/DL 0.66 MG/DL Estimat Glomerular Filtration 112 ML/MIN 118 ML/MIN Rate Random Glucose 94 MG/DL 69 MG/DL Calcium Level 8.3 MG/DL 7.9 MG/DL Magnesium Level 1.9 MG/DL 1.8 MG/DL Total Bilirubin 0.5 MG/DL Aspartate Amino Transf 17 U/L (AST/SGOT) Alanine Aminotransferase 32 U/L (ALT/SGPT) Alkaline Phosphatase 72 U/L Total Creatine Kinase 10 U/L B-Type Natriuretic Peptide 1472 PG/ML Total Protein 4.7 GM/DL Albumin 2.0 GM/DL Microbiology Date/Time Procedure Status Source Growth 11/14/16 10:45 Gram Stain - Final Complete Sputum Expectorated Sputum 11/14/16 10:45 Sputum Culture - Final Complete Sputum Expectorated Sputum HEAVY GROWTH NORMAL RESPIRATORY MARY 11/14/16 13:28 Aerobic Blood Culture Received Blood Other Pending 11/14/16 13:28 Anaerobic Blood Culture Received Blood Other Pending 11/14/16 15:15 Aerobic Blood Culture - Preliminary Resulted Blood Other NO GROWTH IN 2 DAYS 11/14/16 15:15 Anaerobic Blood Culture - Preliminary Resulted Blood Other NO GROWTH IN 2 DAYS 11/14/16 16:30 Aerobic Blood Culture - Preliminary Resulted Blood Other NO GROWTH IN 2 DAYS 11/14/16 16:30 Anaerobic Blood Culture - Preliminary Resulted Blood Other NO GROWTH IN 2 DAYS Imaging Chest X-Ray 11/16/16 0600 Signed Impressions: Service Date/Time: Wednesday, November 16, 2016 03:33 - CONCLUSION: Increasing consolidation and bilateral effusions are suspected. Loc Campbell MD Chest X-Ray 11/14/16 1433 Signed Impressions: Service Date/Time: Monday, November 14, 2016 14:57 - CONCLUSION: 1. Interval placement of left internal jugular central venous line with no pneumothorax. 2. Abnormal opacity remains at the left lung base with probable effusion. Yohan Vera MD Chest X-Ray 11/14/16 1433 Signed Impressions: Service Date/Time: Monday, November 14, 2016 14:57 - CONCLUSION: 1. Interval placement of left internal jugular central venous line with no pneumothorax. 2. Abnormal opacity remains at the left lung base with probable effusion. Yohan Vera MD Abdomen/Pelvis CT 11/14/16 0000 Signed Impressions: Service Date/Time: Monday, November 14, 2016 21:20 - CONCLUSION: 1. Contracted gallbladder with calcified gallstones again noted. 2. Multiple anterior abdominal hernias again noted. 3. Nonspecific, nonobstructive bowel gas. 4. Mild consolidation in the lung bases. Yohan Vera MD CT Angiography 11/13/16 0000 Signed Impressions: Service Date/Time: Sunday, November 13, 2016 16:43 - CONCLUSION: 1. No pulmonary embolus. 2. Emphysematous change in the upper lungs and consolidation or atelectasis in the lower lungs. 3. 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 This finding is unchanged. 4. Multiple compression fractures in the thoracic spine. Salvatore Goddard MD Physical Exam GENERAL: Awake and alert, looks comfortable at rest. On nasal O2. Working with PT SKIN: Cool and dry, no generalized rash HEENT: [place] conjunctivae, no petechia or hemorrhage. No scleral icterus. No injection or drainage. Moist mucosa, no oral thrush. . NECK: Trachea midline. No JVD or lymphadenopathy. Supple, nontender, no meningeal signs. Line ok CARDIOVASCULAR: Regular rate and rhythm without murmurs, gallops, or rubs. AICD L upper chest fairly unremarkable RESPIRATORY: Decreased BS both ling guthrie GASTROINTESTINAL: Abdomen soft, non-tender, nondistended. Bowel sounds are present and normoactive. No guarding. MUSCULOSKELETAL: Extremities without clubbing, cyanosis, or edema. No calf tenderness. Negative Homans sign bilaterally. NEUROLOGICAL: Grossly non-focal PSYCH: Calm and cooperative : Chavez in place, urine clear LINE: LIJ TLC with no evidence of infection Assessment & Plan Remarks IMPRESSION Polymicrobial sepsis on admission, with shock, source - BP better - C/O SOB, and some cough, ?PNA - UA ok - LFT ok - had E coli ESBL+ UTI last September - has AICD, site unremarkable Cardiomyopathy, CAD RECOMMENDATION Continue Meropenem Continue Vancomycin Stop Zithromax Follow C/S Monitor progress Check BNP Emilia Houston MD Nov 17, 2016 09:24
[2016-11-17] MEDS: SODIUM CHLORIDE 0.9% FLUSH 5 ML FLUSH IVF SCH (09:46)
[2016-11-17] MEDS: SODIUM CHLORIDE 0.9% FLUSH 5 ML FLUSH IV FLUSH SCH ×2 (09:46→20:43)
[2016-11-17] MEDS: ARTIFICIAL TEARS OPTH SOLN 15 ML BTL EACH EYE SCH ×3 (09:46→18:00)
[2016-11-17] MEDS: BUDESONIDE-FORMOTEROL 160/4.5 MCG INHALER INH SCH ×2 (09:46→20:44)
[2016-11-17] MEDS: PANTOPRAZOLE SODIUM 40 MG VIAL IV SCH (09:46)
[2016-11-17] MEDS: MULTIVITAMINS/MINERALS THERAPEUTIC TAB PO SCH (09:47)
[2016-11-17] MEDS: ESCITALOPRAM OXALATE 10 MG TAB PO SCH (09:47)
[2016-11-17] MEDS: CALCIUM/VITAMIN D 250 MG/125 U TAB PO SCH ×2 (09:47→20:44)
[2016-11-17] MEDS: AMIODARONE 200 MG TAB PO SCH (09:52)
[2016-11-17] MEDS ORDERED: PHARMACY ORDERED LAB XX ONE (11:45)
[2016-11-17] MEDS: VANCOMYCIN INJ 1,750 MG in SODIUM CHLORID 0.9% 500 ML INJ 500 ML IV SCH (11:50)
[2016-11-17] MEDS: WARFARIN SOD 1 MG TAB PO SCH (17:13)
[2016-11-17] MEDS: HYDROCORTISONE SOD SUCCINATE 100 MG VIAL IV PUSH SCH ×2 (20:41)
[2016-11-17] MEDS: ATORVASTATIN 10 MG TAB PO SCH (20:44)
[2016-11-17] MEDS: RESP: ALBUTEROL 2.5 MG/3 ML NEB (PRN) INH (21:06)
[2016-11-18] VITALS (14 sets, daily range): BP systolic 105–122; BP diastolic 52–65; PULSE 55–99; RESP 24–30; TEMP 98.1–99.1; O2SAT 93–100
[2016-11-18] MEDS: CHLORHEXIDINE GLUCONATE 2 % 1 PACK (2 CLOTHS) TOP SCH (04:00)
[2016-11-18] MEDS: MEROPENEM INJ 1,000 MG in SODIUM CHLORIDE 0.9% INJ 100 ML IV SCH (05:56)
[2016-11-18] MEDS: INSULIN NovoLIN REGULAR SUPPLEMENTAL SCALE SQ SCH ×4 (06:09→20:50)
[2016-11-18 06:26] LABS: INTERNATIONAL NORMALIZED RATIO 2.3 RATIO; PROTHROMBIN TIME - PATIENT 26.2 SEC (9.8-11.6)
[2016-11-18 06:32] LABS: AUTOMATED NEUTROPHIL # 4.6 TH/MM3 (1.8-7.7); BASOPHIL % 0.4 % (0.0-2.0); EOSINOPHIL % 0.8 % (0.0-4.0); HEMATOCRIT 25.6 % (39.0-51.0); LYMPH % 17.4 % (9.0-44.0); LYMPHOCYTE # 1.1 TH/MM3 (1.0-4.8); MEAN CELL VOLUME 89.5 FL (80.0-100.0); MEAN CORPUSCULAR HEMOGLOBIN 29.8 PG (27.0-34.0); MEAN CORPUSCULAR HGB CONC 33.3 % (32.0-36.0); MONO % 9.6 % (0.0-8.0); NEUT % 71.8 % (16.0-70.0); PLATELET COUNT 107 TH/MM3 (150-450); RED BLOOD COUNT 2.85 MIL/MM3 (4.50-5.90); RED CELL DISTRIBUTION WIDTH 19.7 % (11.6-17.2); WHITE BLOOD COUNT 6.4 TH/MM3 (4.0-11.0)
[2016-11-18 06:42] LABS: HEMO FLAGS AUTO DIFF
[2016-11-18 06:48] LABS: BICARBONATE 33.9 MEQ/L (21.0-32.0); MAGNESIUM 1.7 MG/DL (1.5-2.5); POTASSIUM 3.3 MEQ/L (3.5-5.1)
[2016-11-18 09:00] LABS: SCAN/DIFF AUTO DIFF CONFIRMED
[2016-11-18] MEDS: DOCUSATE SODIUM 100 MG CAP PO SCH ×2 (09:00→20:35)
--- NOTE | 2016-11-18 09:01 | HHI.CCPN ---
Subjective Remarks/Hospital Course 76-year-old male. Date of admission 11/13/2016. Past medical history includes chronic warfarin usage, anxiety disorder, coronary artery disease, chronic atrial fibrillation/rate control, chronic low back pain, cardiomyopathy , cholelithiasis, chronic compression fractures of thoracic vertebrae, chronic constipation, COPD, depression, diverticulosis, hypertension, dyslipidemia, ITP , macrocytosis, TERRENCE, esophagitis. This is the patient's fourth hospitalizations since August 2016. Most recently patient was admitted for GI bleed. Patient is not felt well since discharge. He presents from his [facility] after waking up acutely short of breath with pyrexia and nonproductive cough Patient was on Coumadin with Coumadin-induced coagulopathy. Patient was put back on Coumadin and discharged back to retirement. Patient was seen at rest but distress and was given 100% nonrebreathing mask and transported to ED for evaluation. Chest x-ray revealed possible left lower lobe infiltrate. Patient became acutely hypotensive in the ED a central line was placed femorally by ED physician. Patient*norepinephrine drip and given 1 L normal saline bolus. Lactate within normal limits. He is transported to [facility] for evaluation at this facility. We are asked to admit this patient. 11/14: Currently afebrile. Currently nasal cannula. Appears most more comfortable left septic today. NorEpinephrine down to 4 g a minute. Blood cultures with gram-negative sherita/Escherichia coli. Kidney evaluation pending. UA clean. Subjective 11/15: Afebrile. Currently ON vasopressin. Weaning off today. Antibiotics adjusted per ID. More awake and alert and following commands. 11/16 Patient is on 2L oxygen with good sats. On Levophed 2 mics. Afebrile. 11/17 No acute events overnight. Off Levophed. On 2L oxygen with good sats. 11/18 Patient is on 2L oxygen with good sats. Afebrile. Awake and alert. Objective Vital Signs Date Time Temp Pulse Resp B/P Pulse Ox O2 Delivery O2 Flow Rate FiO2 11/18/16 06:00 76 11/18/16 04:00 94 Nasal Cannula 2.00 11/18/16 04:00 98.5 27 122/65 Intake and Output 11/17/16 11/17/16 11/18/16 08:00 16:00 00:00 Intake Total 1310 ml 259 ml Output Total 275 ml 1650 ml 900 ml Balance -275 ml -340 ml -641 ml Result Diagram: 11/18/16 0600 11/18/16 0600 Other Results Laboratory Tests Test 11/17/16 11/17/16 11/18/16 11:45 14:30 06:00 Vancomycin Level Trough 16.7 MCG/ML Potassium Level 3.2 MEQ/L 3.3 MEQ/L White Blood Count 6.4 TH/MM3 Red Blood Count 2.85 MIL/MM3 Hemoglobin 8.5 GM/DL Hematocrit 25.6 % Mean Corpuscular Volume 89.5 FL Mean Corpuscular Hemoglobin 29.8 PG Mean Corpuscular Hemoglobin 33.3 % Concent Red Cell Distribution Width 19.7 % Platelet Count 107 TH/MM3 Mean Platelet Volume 8.4 FL Neutrophils (%) (Auto) 71.8 % Lymphocytes (%) (Auto) 17.4 % Monocytes (%) (Auto) 9.6 % Eosinophils (%) (Auto) 0.8 % Basophils (%) (Auto) 0.4 % Neutrophils # (Auto) 4.6 TH/MM3 Lymphocytes # (Auto) 1.1 TH/MM3 Monocytes # (Auto) 0.6 TH/MM3 Eosinophils # (Auto) 0.0 TH/MM3 Basophils # (Auto) 0.0 TH/MM3 CBC Comment AUTO DIFF Prothrombin Time 26.2 SEC Prothromb Time International 2.3 RATIO Ratio Sodium Level 144 MEQ/L Chloride Level 106 MEQ/L Carbon Dioxide Level 33.9 MEQ/L Anion Gap 4 MEQ/L Blood Urea Nitrogen 13 MG/DL Creatinine 0.67 MG/DL Estimat Glomerular Filtration 116 ML/MIN Rate Random Glucose 77 MG/DL Calcium Level 7.6 MG/DL Phosphorus Level 1.9 MG/DL Magnesium Level 1.7 MG/DL B-Type Natriuretic Peptide 1247 PG/ML Imaging Last Impressions Chest X-Ray 11/16/16 0600 Signed Impressions: Service Date/Time: Wednesday, November 16, 2016 03:33 - CONCLUSION: Increasing consolidation and bilateral effusions are suspected. Loc Campbell MD Abdomen/Pelvis CT 11/14/16 0000 Signed Impressions: Service Date/Time: Monday, November 14, 2016 21:20 - CONCLUSION: 1. Contracted gallbladder with calcified gallstones again noted. 2. Multiple anterior abdominal hernias again noted. 3. Nonspecific, nonobstructive bowel gas. 4. Mild consolidation in the lung bases. Yohan Vera MD CT Angiography 11/13/16 0000 Signed Impressions: Service Date/Time: Sunday, November 13, 2016 16:43 - CONCLUSION: 1. No pulmonary embolus. 2. Emphysematous change in the upper lungs and consolidation or atelectasis in the lower lungs. 3. 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 This finding is unchanged. 4. Multiple compression fractures in the thoracic spine. Salvatore Goddard MD Objective Remarks GENERAL: 76-year-old male lying in bed in [facility] SKIN: Warm and dry. Positive ecchymosis bilateral upper and lower extremities HEAD: Atraumatic. Normocephalic. EYES: Pupils equal and round about 3 mm bilaterally and reactive. No scleral icterus. No injection or drainage. ENT: No nasal bleeding or discharge. Mucous membranes pink and moist. NECK: Trachea midline. No JVD. CARDIOVASCULAR: IR. Accu. S1, S2. No S4. Murmurs appreciated RESPIRATORY: Transient appears sounds clear with cough. Few crackles patient left lower lobe. No wheeze. GASTROINTESTINAL: Abdomen soft, non-tender, nondistended. Hypoactive bowel sounds appreciated MUSCULOSKELETAL: Extremities without significant peripheral edema. No obvious deformities. NEUROLOGICAL: Awake and alert. No obvious cranial nerve deficits. Motor grossly within normal limits. Five out of 5 muscle strength in the arms and legs. Normal speech. Line: Central Venous Catheter Side: Right Location: Femoral A/P Assessment and Plan Neuro/psych: Anxiety depression On Escitalopram 10 mg by mouth daily for depression. Klonopin 0.5 mg BID on hold Acetaminophen for fever Langeloth/morphine for pain management CV: Chronic atrial fibrillation Coronary artery disease status post ME 1987 Cardiomyopathy Congestive heart failure/systolic EF 35-40% 10/16 Hypertension Dyslipidemia Mildly aortic stenosis Severe septic shock 2-D echocardiogram 10/16 revealed EF 35-40% regional hypokinesis. Mild aortic stenosis Echo from 11/14:EF 20% to 25%. Diffuse hypokinesis. Grade 1 diastolic dysfunction. Monitor HR and BP keep MAP>65mmHg. Add Lisinopril 2.5mg daily Solu-Cortef 50 mg Q12. on Chronic prednisone use 20 milligrams daily. Coreg 6.25 mg by mouth twice a day on hold Continue amiodarone 200 mg by mouth daily for A. fib. Continue atorvastatin 10 mg daily for dyslipidemia Cards eval Resp: Acute hypoxemic respiratory failure COPD Possible HCAP Continue with oxygen keep sat >92% Bronchodilator therapy every 6 hours and as needed NIPPV PRN for resp distress Symbicort twice daily Pulm: Dr. Villarreal GI: History of GI bleed Morbid obesity Cholelithiasis Chronic abdominal pain Chronic constipation Diverticulosis On PO heart healthy diet Protonix for GI prophylaxis. Colace/as needed Senokot for bowel regimen EGD from last admission - gastritis bx from antrum, normal endoscopy otherwise , retroflexed revealed no abnormalities, few diverticulosis in the sigmoid, normal surgical anastamosis, no active bleed, small polyp in the ascending colon removed by snare, the colon mucosa was otherwise normal, retroflexed views revealed internal hemorrhoids, small internal hemorrhoids, revealed no abnormalities of the rectum. : BPH Hypogonadism Chronic kidney disease stage III Monitor renal function, I/O's, electrolytes replacement per protocol. Will need K, phos replacement today. Diurese with Bumex 1mg x1 Endo: Sliding-scale insulin to maintain euglycemia. Accu-Cheks every 6 hours/low regimen Heme: Normocytic anemia history of ITP Chronic VKA use At home on Coumadin 2 mg by mouth daily. INR 2.3 today Monitor CBC/CMP daily. Daily INRs with pharmacy to manage. Chronically prednisone 20 mg daily for ITP.. Currently on Solu-Cortef stress dose ID: Possible healthcare associated pneumonia Continue abx per ID( Vanco, Merrem) monitor for signs of infections ( Fever, WBC ) Pertinent cultures 11/13 - blood cultures : Escherichia coli, Group D Enterococcus, GNR Negative urine Legionella pneumococcal antigens and influenza MSK: Chronic compression fractures of thoracic vertebrae Chronic low back pain Calcium vitamin D at home. This is been held PT evaluate and treat Access - Left IJ placed 11/14 Prophylaxis - GI - Protonix - DVT - SCD/Coumadin pharmacy managing Will sign off and transfer care to [facility] Level 3 Romero Santamaria MD Nov 18, 2016 09:01
[2016-11-18] MEDS ORDERED: PILL SPLITTER OTHER PRN (09:30)
[2016-11-18] MEDS ORDERED: ASP: Documented ESBL, MDR A baumannii or P. aeruginosa XX PRN (09:45)
[2016-11-18] MEDS ORDERED: MISCELLANEOUS PHARMACY INFORMATION XX PRN (09:45)
--- NOTE | 2016-11-18 09:49 | HHI.IDPN ---
Subjective Subjective Remarks Notes reviewed Temps ok On nasal O2 at 2L Gets easily SOB No new complaint CT A/P ok One BC with E coli ESBL, and Providencia 2nd BC with Providencia and Enterococcus Repeat BC negative so far Echo thickened AV and MV, other valves not seen well Antibiotics Meropenem Vancomycin Zithromax Lines LIJ TLC - 11/14 Past Medical History CAD, cardiomyopathy Hypogonadism History of hypertension History of right lower extreme DVT 2010 Chronic kidney disease creatinine currently 1.2 Anticoagulation use Anxiety disorder Chronic atrial fibrillation Chronic low back pain Cholelithiasis Chronic compression fractures thoracic vertebrae COPD by diagnosis Depression NOS Diverticulosis Hypertension Dyslipidemia History of ITP Macrocytosis TERRENCE Esophagitis Past Surgical History AICD placement with battery replacement 2015 Pilonidal cyst resection Colon resection with colostomy for diverticulitis with colon perforation with takedown diverting colostomy Cataract Allergies: Coded Allergies: Quinidex Extentab (Verified Allergy, Severe, PLATELETT COUNT DECREASES/ BLINDNESS, 11/02/16) Niacin (Verified Allergy, Intermediate, RASH/ITCHING, 11/02/16) MRI PRECAUTION (Verified Adverse Reaction, Severe, NON MRI COMPATIBLE DEFIB 10/22/15 LRS, 11/02/16) *MDRO Multi-Drug Resistant Organism (Verified Adverse Reaction, Unknown, ESBL, 11/17/16) ESBL E. coli (abd. 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 coli (urine) - 03/08/16, 09/28/16, 10/19/16 ESBL E.Coli (blood)-11/13/16 Objective . Vital Signs Date Time Temp Pulse Resp B/P Pulse Ox O2 Delivery O2 Flow Rate FiO2 11/18/16 06:00 76 11/18/16 04:00 94 Nasal Cannula 2.00 11/18/16 04:00 75 11/18/16 04:00 98.5 74 27 122/65 100 11/18/16 02:00 76 11/18/16 00:00 91 11/18/16 00:00 99.1 91 24 116/58 95 11/18/16 00:00 95 Nasal Cannula 2.00 11/17/16 22:00 72 11/17/16 21:06 93 Nasal Cannula 3.00 11/17/16 20:00 95 Nasal Cannula 2.00 11/17/16 20:00 99.1 87 33 87/51 95 11/17/16 20:00 87 11/17/16 18:00 91 11/17/16 16:00 99 Nasal Cannula 2.00 11/17/16 16:00 74 11/17/16 16:00 98.3 74 24 95/48 99 11/17/16 14:00 82 11/17/16 12:00 98.3 74 25 113/53 94 11/17/16 12:00 94 Nasal Cannula 2.00 11/17/16 12:00 74 11/17/16 10:00 78 11/17/16 11/17/16 11/18/16 15:00 23:00 07:00 Intake Total 1310 ml 259 ml 340 ml Output Total 1650 ml 900 ml 250 ml Balance -340 ml -641 ml 90 ml Intake Oral 240 ml 240 ml 240 ml IV Total 1070 ml 19 ml 100 ml Output Urine Total 1650 ml 900 ml 250 ml # Bowel Movements 1 0 0 . Laboratory Tests Test 11/17/16 11/18/16 02:30 06:00 White Blood Count 5.5 TH/MM3 6.4 TH/MM3 Red Blood Count 2.71 MIL/MM3 2.85 MIL/MM3 Hemoglobin 7.9 GM/DL 8.5 GM/DL Hematocrit 24.4 % 25.6 % Mean Corpuscular Volume 90.0 FL 89.5 FL Mean Corpuscular Hemoglobin 29.3 PG 29.8 PG Mean Corpuscular Hemoglobin 32.5 % 33.3 % Concent Red Cell Distribution Width 19.9 % 19.7 % Platelet Count 103 TH/MM3 107 TH/MM3 Mean Platelet Volume 9.1 FL 8.4 FL Neutrophils (%) (Auto) 70.0 % 71.8 % Lymphocytes (%) (Auto) 19.5 % 17.4 % Monocytes (%) (Auto) 9.9 % 9.6 % Eosinophils (%) (Auto) 0.2 % 0.8 % Basophils (%) (Auto) 0.4 % 0.4 % Neutrophils # (Auto) 3.9 TH/MM3 4.6 TH/MM3 Lymphocytes # (Auto) 1.1 TH/MM3 1.1 TH/MM3 Monocytes # (Auto) 0.6 TH/MM3 0.6 TH/MM3 Eosinophils # (Auto) 0.0 TH/MM3 0.0 TH/MM3 Basophils # (Auto) 0.0 TH/MM3 0.0 TH/MM3 CBC Comment AUTO DIFF AUTO DIFF Differential Comment AUTO DIFF AUTO DIFF CONFIRMED CONFIRMED Ovalocytes 1+ Laboratory Tests Test 11/16/16 11/17/16 11/17/16 11/18/16 17:04 02:30 14:30 06:00 Phosphorus Level 2.9 MG/DL 2.0 MG/DL 1.9 MG/DL Sodium Level 144 MEQ/L 144 MEQ/L Potassium Level 3.3 MEQ/L 3.2 MEQ/L 3.3 MEQ/L Chloride Level 107 MEQ/L 106 MEQ/L Carbon Dioxide Level 29.8 MEQ/L 33.9 MEQ/L Anion Gap 7 MEQ/L 4 MEQ/L Blood Urea Nitrogen 13 MG/DL 13 MG/DL Creatinine 0.66 MG/DL 0.67 MG/DL Estimat Glomerular Filtration 118 ML/MIN 116 ML/MIN Rate Random Glucose 69 MG/DL 77 MG/DL Calcium Level 7.9 MG/DL 7.6 MG/DL Magnesium Level 1.8 MG/DL 1.7 MG/DL B-Type Natriuretic Peptide 1247 PG/ML Imaging Chest X-Ray 11/16/16 0600 Signed Impressions: Service Date/Time: Wednesday, November 16, 2016 03:33 - CONCLUSION: Increasing consolidation and bilateral effusions are suspected. Loc Campbell MD Chest X-Ray 11/14/16 1433 Signed Impressions: Service Date/Time: Monday, November 14, 2016 14:57 - CONCLUSION: 1. Interval placement of left internal jugular central venous line with no pneumothorax. 2. Abnormal opacity remains at the left lung base with probable effusion. Yohan Vera MD Chest X-Ray 11/14/16 1433 Signed Impressions: Service Date/Time: Monday, November 14, 2016 14:57 - CONCLUSION: 1. Interval placement of left internal jugular central venous line with no pneumothorax. 2. Abnormal opacity remains at the left lung base with probable effusion. Yohan Vera MD Abdomen/Pelvis CT 11/14/16 0000 Signed Impressions: Service Date/Time: Monday, November 14, 2016 21:20 - CONCLUSION: 1. Contracted gallbladder with calcified gallstones again noted. 2. Multiple anterior abdominal hernias again noted. 3. Nonspecific, nonobstructive bowel gas. 4. Mild consolidation in the lung bases. Yohan Vera MD CT Angiography 11/13/16 0000 Signed Impressions: Service Date/Time: Sunday, November 13, 2016 16:43 - CONCLUSION: 1. No pulmonary embolus. 2. Emphysematous change in the upper lungs and consolidation or atelectasis in the lower lungs. 3. 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 This finding is unchanged. 4. Multiple compression fractures in the thoracic spine. Salvatore Goddard MD Physical Exam GENERAL: Awake and alert, NAD. On nasal O2. SKIN: Cool and dry, no generalized rash HEENT: [place] conjunctivae, no petechia or hemorrhage. No scleral icterus. Moist mucosa, no oral thrush. . NECK: Supple, nontender, no meningeal signs. Line ok CARDIOVASCULAR: Regular rate and rhythm without murmurs, gallops, or rubs. AICD L upper chest fairly unremarkable RESPIRATORY: Decreased BS both ling guthrie GASTROINTESTINAL: Abdomen soft, non-tender, nondistended. Bowel sounds are present and normoactive. No guarding. MUSCULOSKELETAL: Extremities without clubbing, cyanosis, or edema. No calf tenderness. NEUROLOGICAL: Grossly non-focal PSYCH: Calm and cooperative : Chavez in place, urine clear LINE: LIJ TLC with no evidence of infection Assessment & Plan Remarks IMPRESSION Polymicrobial sepsis on admission, with shock, source - BP better - C/O SOB, and some cough, ?PNA - UA ok - LFT ok - had E coli ESBL+ UTI last September - has AICD, site unremarkable Cardiomyopathy, CAD RECOMMENDATION Change Meropenem to Invanz Continue Vancomycin Stop Zithromax Follow C/S Monitor progress Emilia Houston MD Nov 18, 2016 09:49
[2016-11-18] MEDS: LISINOPRIL 5 MG TAB PO SCH (10:00)
[2016-11-18] MEDS ORDERED: BUMETANIDE INJ 1 MG/4 ML VIAL IV PUSH ONE (10:00)
[2016-11-18] MEDS: ARTIFICIAL TEARS OPTH SOLN 15 ML BTL EACH EYE SCH ×3 (10:22→16:45)
[2016-11-18] MEDS: BUDESONIDE-FORMOTEROL 160/4.5 MCG INHALER INH SCH ×2 (10:22→20:42)
[2016-11-18] MEDS: POTASSIUM PHOSPHATE INJ 30 MMOL in SODIUM CHLOR 0.9% 250 ML INJ 250 ML IV PRN (10:23)
[2016-11-18] MEDS: ESCITALOPRAM OXALATE 10 MG TAB PO SCH (10:23)
[2016-11-18] MEDS: SODIUM CHLORIDE 0.9% FLUSH 5 ML FLUSH IV FLUSH SCH ×2 (10:23→20:35)
[2016-11-18] MEDS: CALCIUM/VITAMIN D 250 MG/125 U TAB PO SCH ×2 (10:23→20:35)
[2016-11-18] MEDS: MULTIVITAMINS/MINERALS THERAPEUTIC TAB PO SCH (10:23)
[2016-11-18] MEDS: SODIUM CHLORIDE 0.9% FLUSH 5 ML FLUSH IVF SCH (10:23)
[2016-11-18] MEDS: HYDROCORTISONE SOD SUCCINATE 100 MG VIAL IV PUSH SCH ×2 (10:24→20:42)
[2016-11-18] MEDS: AMIODARONE 200 MG TAB PO SCH (10:24)
[2016-11-18] MEDS: PANTOPRAZOLE SODIUM 40 MG VIAL IV SCH (10:25)
[2016-11-18] MEDS ORDERED: ERTAPENEM INJ 1,000 MG in SODIUM CHLORIDE 0.9% INJ 100 ML IV SCH (11:00)
--- NOTE | 2016-11-18 12:36 | MB ---
cc: CLEMENT NICOLE MD DATE OF CONSULTATION 11/18/2016 REASON FOR CONSULTATION This is a 76-year-old gentleman who is in the hospital with sepsis. He actually was recently discharged from the hospital with a GI bleed. He has a history of coronary disease and chronic atrial fibrillation which has been managed medically with Warfarin as thromboembolic protection. He apparently was supratherapeutic several weeks ago and had a rather significant lower GI bleed, presumably from diverticula although no source was positively identified. He is discharged to a alf for recovery and began having fever and altered mental status requiring readmission. His temperature on admission was 104 axillary. We have been asked to see him in view of his history of cardiomyopathy. We note that his EF on his echo two weeks ago was 35-40%, but on this admission is now down to 20-25%. He has been placed on a course of antibiotics and has received this for the past four or five days. The patient is currently awake and alert and complains only of rather significant fatigue and weakness. He does have some mild dyspnea on exertion, but this is essentially unchanged over his baseline state. No chest pain has been present. His imaging studies showed no evidence for pulmonary emboli. Chest x-ray initially was clear. Subsequently, he has developed a left lower lobe infiltrate, although no evidence for heart failure is present. PAST MEDICAL HISTORY The past history has otherwise been significant for: 1. Pacemaker implantation with recent generator change in April 2016. 2. He has had problems with TIA approximately seven months ago. 3. Hypertension 4. Hyperlipidemia. SOCIAL HISTORY The patient does smoke three to four cigarettes a day. He does not use recreational drugs or alcohol. ALLERGIES QUINADINE, NIACIN. PHYSICAL EXAM He is awake and alert, as noted above. VITAL SIGNS: His blood pressure is stable at 116/60, pulse is 70 and regular. NECK: There is no neck vein distension. LUNGS: Revealed decreased breath sounds in the left base. CARDIOVASCULAR: Exam reveals a regular rate and rhythm. There is no murmur or gallop noted. ABDOMEN: Soft and obese. EXTREMITIES: Reveal no edema. ASSESSMENT From the cardiovascular standpoint, his EF has diminished probably secondary to his sepsis and pneumonia. I would expect as his infection clears, his ejection fraction should return to his baseline 35-40%. At this point in time, I would continue his lisinopril, but we can continue it at low-dose to guard against hypotension and avoid adding Coreg at this point in time for the same reason. No evidence for heart failure is present. I do not feel he needs diuretics at this point in time. We will be happy to follow along with you. MD RONNIE Garcia/SAMANTHA /12:19 PM /12:28 PM
[2016-11-18] MEDS: VANCOMYCIN INJ 1,750 MG in SODIUM CHLORID 0.9% 500 ML INJ 500 ML IV SCH (12:47)
[2016-11-18] MEDS: RESP: ALBUTEROL 2.5 MG/3 ML NEB (PRN) INH ×3 (14:05→21:53)
[2016-11-18] MEDS: WARFARIN SOD 1 MG TAB PO SCH (16:45)
[2016-11-18] MEDS: ATORVASTATIN 10 MG TAB PO SCH (20:35)
[2016-11-18 22:03] LABS: POTASSIUM 3.3 MEQ/L (3.5-5.1)
[2016-11-19] VITALS (14 sets, daily range): BP systolic 98–130; BP diastolic 54–60; PULSE 65–81; RESP 22–32; TEMP 98.1–98.6; O2SAT 91–97
[2016-11-19] MEDS: ERTAPENEM INJ 1,000 MG in SODIUM CHLORIDE 0.9% INJ 100 ML IV SCH (04:00)
[2016-11-19] MEDS: CHLORHEXIDINE GLUCONATE 2 % 1 PACK (2 CLOTHS) TOP SCH (04:00)
[2016-11-19] MEDS: POTASSIUM PHOSPHATE INJ 30 MMOL in SODIUM CHLOR 0.9% 250 ML INJ 250 ML IV PRN (06:32)
[2016-11-19] MEDS: INSULIN NovoLIN REGULAR SUPPLEMENTAL SCALE SQ SCH ×4 (06:37→21:00)
[2016-11-19 06:54] LABS: AUTOMATED NEUTROPHIL # 5.6 TH/MM3 (1.8-7.7); BASOPHIL % 0.3 % (0.0-2.0); EOSINOPHIL % 0.3 % (0.0-4.0); LYMPH % 17.9 % (9.0-44.0); LYMPHOCYTE # 1.4 TH/MM3 (1.0-4.8); MEAN CELL VOLUME 90.2 FL (80.0-100.0); MEAN CORPUSCULAR HEMOGLOBIN 29.7 PG (27.0-34.0); MEAN CORPUSCULAR HGB CONC 32.9 % (32.0-36.0); MONO % 8.6 % (0.0-8.0); NEUT % 72.9 % (16.0-70.0); PLATELET COUNT 127 TH/MM3 (150-450); RED BLOOD COUNT 2.99 MIL/MM3 (4.50-5.90); RED CELL DISTRIBUTION WIDTH 19.7 % (11.6-17.2); WHITE BLOOD COUNT 7.6 TH/MM3 (4.0-11.0)
[2016-11-19 06:56] LABS: HEMO FLAGS AUTO DIFF
[2016-11-19 07:09] LABS: INTERNATIONAL NORMALIZED RATIO 1.8 RATIO; PROTHROMBIN TIME - PATIENT 20.1 SEC (9.8-11.6)
[2016-11-19 07:18] LABS: MAGNESIUM 1.7 MG/DL (1.5-2.5)
[2016-11-19] MEDS: RESP: ALBUTEROL 2.5 MG/3 ML NEB (PRN) INH ×4 (07:30→18:32)
[2016-11-19 08:05] LABS: OVALOCYTES 1+ (NORMAL); PLATELET ESTIMATE SMEAR LOW (NORMAL); PLATELET MORPHOLOGY NORMAL (NORMAL); SCAN/DIFF AUTO DIFF CONFIRMED
[2016-11-19] MEDS: ARTIFICIAL TEARS OPTH SOLN 15 ML BTL EACH EYE SCH ×2 (09:00→11:07)
[2016-11-19] MEDS: DOCUSATE SODIUM 100 MG CAP PO SCH ×2 (09:13→21:00)
[2016-11-19] MEDS: MULTIVITAMINS/MINERALS THERAPEUTIC TAB PO SCH (09:13)
[2016-11-19] MEDS: PANTOPRAZOLE SODIUM 40 MG VIAL IV SCH (09:14)
[2016-11-19] MEDS: HYDROCORTISONE SOD SUCCINATE 100 MG VIAL IV PUSH SCH ×2 (09:14→21:21)
[2016-11-19] MEDS: CALCIUM/VITAMIN D 250 MG/125 U TAB PO SCH ×2 (09:14→21:21)
[2016-11-19] MEDS: LISINOPRIL 5 MG TAB PO SCH (09:15)
[2016-11-19] MEDS: AMIODARONE 200 MG TAB PO SCH (09:15)
[2016-11-19] MEDS: ESCITALOPRAM OXALATE 10 MG TAB PO SCH (09:15)
[2016-11-19] MEDS: SODIUM CHLORIDE 0.9% FLUSH 5 ML FLUSH IV FLUSH SCH ×2 (09:15→21:20)
[2016-11-19] MEDS: BUDESONIDE-FORMOTEROL 160/4.5 MCG INHALER INH SCH ×2 (11:06→21:19)
[2016-11-19] MEDS: SODIUM CHLORIDE 0.9% FLUSH 5 ML FLUSH IVF SCH (11:07)
[2016-11-19] MEDS: VANCOMYCIN INJ 1,750 MG in SODIUM CHLORID 0.9% 500 ML INJ 500 ML IV SCH (12:30)
--- NOTE | 2016-11-19 13:23 | HHI.IDPN ---
Subjective Subjective Remarks Notes reviewed Clinically doing well and stable Temps ok On nasal O2 at 2L Gets easily SOB No new complaint No new (+) BC CT A/P ok One BC with E coli ESBL, and Providencia 2nd BC with Providencia and Enterococcus Echo thickened AV and MV, other valves not seen well Antibiotics Invanz Vancomycin Lines LIJ TLC - 11/14 Past Medical History CAD, cardiomyopathy Hypogonadism History of hypertension History of right lower extreme DVT 2010 Chronic kidney disease creatinine currently 1.2 Anticoagulation use Anxiety disorder Chronic atrial fibrillation Chronic low back pain Cholelithiasis Chronic compression fractures thoracic vertebrae COPD by diagnosis Depression NOS Diverticulosis Hypertension Dyslipidemia History of ITP Macrocytosis TERRENCE Esophagitis Past Surgical History AICD placement with battery replacement 2015 Pilonidal cyst resection Colon resection with colostomy for diverticulitis with colon perforation with takedown diverting colostomy Cataract Allergies: Coded Allergies: Quinidex Extentab (Verified Allergy, Severe, PLATELETT COUNT DECREASES/ BLINDNESS, 11/02/16) Niacin (Verified Allergy, Intermediate, RASH/ITCHING, 11/02/16) MRI PRECAUTION (Verified Adverse Reaction, Severe, NON MRI COMPATIBLE DEFIB 10/22/15 LRS, 11/02/16) *MDRO Multi-Drug Resistant Organism (Verified Adverse Reaction, Unknown, ESBL, 11/17/16) ESBL E. coli (abd. 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 coli (urine) - 03/08/16, 09/28/16, 10/19/16 ESBL E.Coli (blood)-11/13/16 Objective . Vital Signs Date Time Temp Pulse Resp B/P Pulse Ox O2 Delivery O2 Flow Rate FiO2 11/19/16 12:00 71 11/19/16 12:00 91 Nasal Cannula 2.00 11/19/16 12:00 98.1 71 30 115/59 91 11/19/16 10:00 81 11/19/16 08:00 98.4 74 27 127/59 96 11/19/16 08:00 96 Nasal Cannula 2.00 11/19/16 08:00 71 11/19/16 07:30 95 Nasal Cannula 3.00 11/19/16 06:00 71 11/19/16 04:00 95 Nasal Cannula 2.00 11/19/16 04:00 65 11/19/16 04:00 98.6 67 22 130/60 95 11/19/16 02:00 71 11/19/16 00:00 95 Nasal Cannula 2.00 11/19/16 00:00 98.5 68 24 123/60 95 11/19/16 00:00 68 11/18/16 22:00 68 11/18/16 21:54 100 Nasal Cannula 3.00 11/18/16 20:00 98.6 76 30 109/57 97 11/18/16 20:00 76 11/18/16 20:00 97 Nasal Cannula 2.00 11/18/16 18:00 84 11/18/16 16:00 72 11/18/16 16:00 98.1 72 30 114/57 97 11/18/16 16:00 97 Nasal Cannula 2.00 11/18/16 14:00 55 11/18/16 11/18/16 11/19/16 15:00 23:00 07:00 Intake Total 1183 ml 328 ml 349 ml Output Total 1950 ml 325 ml 170 ml Balance -767 ml 3 ml 179 ml Intake Oral 120 ml 240 ml 240 ml IV Total 1063 ml 88 ml 109 ml Output Urine Total 1950 ml 325 ml 170 ml # Bowel Movements 0 0 0 . Laboratory Tests Test 11/18/16 11/19/16 06:00 06:30 White Blood Count 6.4 TH/MM3 7.6 TH/MM3 Red Blood Count 2.85 MIL/MM3 2.99 MIL/MM3 Hemoglobin 8.5 GM/DL 8.9 GM/DL Hematocrit 25.6 % 27.0 % Mean Corpuscular Volume 89.5 FL 90.2 FL Mean Corpuscular Hemoglobin 29.8 PG 29.7 PG Mean Corpuscular Hemoglobin 33.3 % 32.9 % Concent Red Cell Distribution Width 19.7 % 19.7 % Platelet Count 107 TH/MM3 127 TH/MM3 Mean Platelet Volume 8.4 FL 8.2 FL Neutrophils (%) (Auto) 71.8 % 72.9 % Lymphocytes (%) (Auto) 17.4 % 17.9 % Monocytes (%) (Auto) 9.6 % 8.6 % Eosinophils (%) (Auto) 0.8 % 0.3 % Basophils (%) (Auto) 0.4 % 0.3 % Neutrophils # (Auto) 4.6 TH/MM3 5.6 TH/MM3 Lymphocytes # (Auto) 1.1 TH/MM3 1.4 TH/MM3 Monocytes # (Auto) 0.6 TH/MM3 0.7 TH/MM3 Eosinophils # (Auto) 0.0 TH/MM3 0.0 TH/MM3 Basophils # (Auto) 0.0 TH/MM3 0.0 TH/MM3 CBC Comment AUTO DIFF AUTO DIFF Differential Comment AUTO DIFF AUTO DIFF CONFIRMED CONFIRMED Platelet Estimate LOW Platelet Morphology Comment NORMAL Polychromasia 2.0 % Ovalocytes 1+ Laboratory Tests Test 11/17/16 11/18/16 11/18/16 11/19/16 14:30 06:00 21:07 06:30 Potassium Level 3.2 MEQ/L 3.3 MEQ/L 3.3 MEQ/L 3.0 MEQ/L Sodium Level 144 MEQ/L 145 MEQ/L Chloride Level 106 MEQ/L 105 MEQ/L Carbon Dioxide Level 33.9 MEQ/L 33.0 MEQ/L Anion Gap 4 MEQ/L 7 MEQ/L Blood Urea Nitrogen 13 MG/DL 12 MG/DL Creatinine 0.67 MG/DL 0.56 MG/DL Estimat Glomerular Filtration 116 ML/MIN 142 ML/MIN Rate Random Glucose 77 MG/DL 73 MG/DL Calcium Level 7.6 MG/DL 8.1 MG/DL Phosphorus Level 1.9 MG/DL 2.2 MG/DL 2.2 MG/DL Magnesium Level 1.7 MG/DL 1.7 MG/DL B-Type Natriuretic Peptide 1247 PG/ML Imaging Chest X-Ray 11/16/16 0600 Signed Impressions: Service Date/Time: Wednesday, November 16, 2016 03:33 - CONCLUSION: Increasing consolidation and bilateral effusions are suspected. Loc Campbell MD Chest X-Ray 11/14/16 1433 Signed Impressions: Service Date/Time: Monday, November 14, 2016 14:57 - CONCLUSION: 1. Interval placement of left internal jugular central venous line with no pneumothorax. 2. Abnormal opacity remains at the left lung base with probable effusion. Yohan Vera MD Chest X-Ray 11/14/16 1433 Signed Impressions: Service Date/Time: Monday, November 14, 2016 14:57 - CONCLUSION: 1. Interval placement of left internal jugular central venous line with no pneumothorax. 2. Abnormal opacity remains at the left lung base with probable effusion. Yohan Vera MD Abdomen/Pelvis CT 11/14/16 0000 Signed Impressions: Service Date/Time: Monday, November 14, 2016 21:20 - CONCLUSION: 1. Contracted gallbladder with calcified gallstones again noted. 2. Multiple anterior abdominal hernias again noted. 3. Nonspecific, nonobstructive bowel gas. 4. Mild consolidation in the lung bases. Yohan Vera MD CT Angiography 11/13/16 0000 Signed Impressions: Service Date/Time: Sunday, November 13, 2016 16:43 - CONCLUSION: 1. No pulmonary embolus. 2. Emphysematous change in the upper lungs and consolidation or atelectasis in the lower lungs. 3. 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 This finding is unchanged. 4. Multiple compression fractures in the thoracic spine. Salvatore Goddard MD Physical Exam GENERAL: Awake and alert, NAD. On nasal O2. SKIN: Cool and dry, no generalized rash HEENT: [place] conjunctivae, no petechia or hemorrhage. No scleral icterus. Moist mucosa, no oral thrush. . NECK: Supple, nontender, no meningeal signs. Line ok CARDIOVASCULAR: Regular rate and rhythm without murmurs, gallops, or rubs. AICD L upper chest fairly unremarkable RESPIRATORY: Decreased BS both ling guthrie GASTROINTESTINAL: Abdomen soft, non-tender, nondistended. Bowel sounds are present and normoactive. No guarding. MUSCULOSKELETAL: Extremities without clubbing, cyanosis, or edema. No calf tenderness. NEUROLOGICAL: Grossly non-focal PSYCH: Calm and cooperative : Chavez in place, urine clear LINE: LIJ TLC with no evidence of infection Assessment & Plan Remarks IMPRESSION Polymicrobial sepsis on admission, with shock, source - BP better - C/O SOB, and some cough, ?PNA - UA ok - LFT ok - had E coli ESBL+ UTI last September - has AICD, site unremarkable Cardiomyopathy, CAD RECOMMENDATION Continue Invanz Continue Vancomycin Follow C/S Monitor progress Emilia Houston MD Nov 19, 2016 13:23
[2016-11-19] MEDS ORDERED: WARFARIN SOD 1 MG TAB PO SCH (16:00)
--- NOTE | 2016-11-19 16:20 | HHI.PR ---
Subjective Remarks patient initially irritable, feels frustrated and feels depressed he tries to cough- but weak effort seen with partner - has been in and out of hospital-"one thing after another" `was upset last stay in [place] when hospice was brought up Objective Vitals Vital Signs Date Time Temp Pulse Resp B/P Pulse Ox O2 Delivery O2 Flow Rate FiO2 11/19/16 14:00 80 11/19/16 12:00 71 11/19/16 12:00 91 Nasal Cannula 2.00 11/19/16 12:00 98.1 71 30 115/59 91 11/19/16 10:00 81 11/19/16 08:00 98.4 74 27 127/59 96 11/19/16 08:00 96 Nasal Cannula 2.00 11/19/16 08:00 71 11/19/16 07:30 95 Nasal Cannula 3.00 11/19/16 06:00 71 11/19/16 04:00 95 Nasal Cannula 2.00 11/19/16 04:00 65 11/19/16 04:00 98.6 67 22 130/60 95 11/19/16 02:00 71 11/19/16 00:00 95 Nasal Cannula 2.00 11/19/16 00:00 98.5 68 24 123/60 95 11/19/16 00:00 68 11/18/16 22:00 68 11/18/16 21:54 100 Nasal Cannula 3.00 11/18/16 20:00 98.6 76 30 109/57 97 11/18/16 20:00 76 11/18/16 20:00 97 Nasal Cannula 2.00 11/18/16 18:00 84 I/O 11/18/16 11/18/16 11/18/16 11/19/16 11/19/16 11/19/16 07:00 15:00 23:00 07:00 15:00 23:00 Intake Total 340 ml 1183 ml 328 ml 349 ml 1243 ml Output Total 250 ml 1950 ml 325 ml 170 ml 250 ml Balance 90 ml -767 ml 3 ml 179 ml 993 ml Intake Oral 240 ml 120 ml 240 ml 240 ml 240 ml IV Total 100 ml 1063 ml 88 ml 109 ml 1003 ml Output Urine Total 250 ml 1950 ml 325 ml 170 ml 250 ml # Bowel Movements 0 0 0 0 1 Result Diagram: 11/19/16 0630 11/19/16 0630 Imaging Last Impressions Chest X-Ray 11/16/16 0600 Signed Impressions: Service Date/Time: Wednesday, November 16, 2016 03:33 - CONCLUSION: Increasing consolidation and bilateral effusions are suspected. Loc Campbell MD Abdomen/Pelvis CT 11/14/16 0000 Signed Impressions: Service Date/Time: Monday, November 14, 2016 21:20 - CONCLUSION: 1. Contracted gallbladder with calcified gallstones again noted. 2. Multiple anterior abdominal hernias again noted. 3. Nonspecific, nonobstructive bowel gas. 4. Mild consolidation in the lung bases. Yohan Vera MD CT Angiography 11/13/16 0000 Signed Impressions: Service Date/Time: Sunday, November 13, 2016 16:43 - CONCLUSION: 1. No pulmonary embolus. 2. Emphysematous change in the upper lungs and consolidation or atelectasis in the lower lungs. 3. 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 This finding is unchanged. 4. Multiple compression fractures in the thoracic spine. Salvatore Goddard MD Objective Remarks awake and alert, oriented x 3 anicteric lungs decreased breath sonds regular rhyth,- telemetry- paced abdomen soft, nontender paz in place extremities -moves all extremities- Assessment to: Continue Paz insert reason: Prolonged Immobilization Line: Central Venous Catheter Side: Right Location: Femoral A/P Problem List: (1) Respiratory failure ICD Code: J96.90 Status: Acute (2) Severe sepsis with acute organ dysfunction ICD Code: A41.9 Status: Acute (3) Hypomagnesemia ICD Code: E83.42 Status: Acute (4) Hypophosphatemia ICD Code: E83.39 Status: Acute (5) Hyperlipidemia ICD Code: E78.5 Status: Chronic (6) Anemia, normocytic normochromic ICD Code: D64.9 Status: Chronic (7) Benign prostatic hyperplasia ICD Code: N40.0 Status: Chronic (8) Chronic kidney disease ICD Code: N18.9 Status: Acute (9) A-fib ICD Code: I48.91 Status: Acute (10) Congestive heart failure ICD Code: I50.9 Status: Acute Assessment and Plan Neuro/psych: Anxiety depression- history of Panic attacks On Escitalopram 10 mg by mouth daily for depression. Klonopin 0.5 mg BID on hold Acetaminophen for fever [place]/morphine for pain management get a psychiatry consult in am patient and partner agrees CV: Chronic atrial fibrillation Coronary artery disease status post CT 1987 Cardiomyopathy Congestive heart failure/systolic EF 35-40% 10/16 Hypertension Dyslipidemia Mildly aortic stenosis Severe septic shock 2-D echocardiogram 10/16 revealed EF 35-40% regional hypokinesis. Mild aortic stenosis Echo from 11/14:EF 20% to 25%. Diffuse hypokinesis. Grade 1 diastolic dysfunction. Monitor HR and BP keep MAP>65mmHg. Add Lisinopril 2.5mg daily Solu-Cortef 50 mg Q12. on Chronic prednisone use 20 milligrams daily. Coreg 6.25 mg by mouth twice a day on hold Continue amiodarone 200 mg by mouth daily for A. fib. Continue atorvastatin 10 mg daily for dyslipidemia Cards eval Resp: Acute hypoxemic respiratory failure COPD Possible HCAP Continue with oxygen keep sat >92% Bronchodilator therapy every 6 hours and as needed NIPPV PRN for resp distress Symbicort twice daily Pulm: Dr. Villarreal GI: History of GI bleed Morbid obesity Cholelithiasis Chronic abdominal pain Chronic constipation Diverticulosis On PO heart healthy diet Protonix for GI prophylaxis. Colace/as needed Senokot for bowel regimen EGD from last admission - gastritis bx from antrum, normal endoscopy otherwise , retroflexed revealed no abnormalities, few diverticulosis in the sigmoid, normal surgical anastamosis, no active bleed, small polyp in the ascending colon removed by snare, the colon mucosa was otherwise normal, retroflexed views revealed internal hemorrhoids, small internal hemorrhoids, revealed no abnormalities of the rectum. : BPH Hypogonadism Chronic kidney disease stage III Monitor renal function, I/O's, electrolytes replacement per protocol. Will need K, phos replacement today. Diurese with Bumex 1mg x1 Endo: Sliding-scale insulin to maintain euglycemia. Accu-Cheks every 6 hours/low regimen Heme: Normocytic anemia history of ITP Chronic VKA use At home on Coumadin 2 mg by mouth daily. INR 2.3 today Monitor CBC/CMP daily. Daily INRs with pharmacy to manage. Chronically prednisone 20 mg daily for ITP.. Currently on Solu-Cortef stress dose ID: Possible healthcare associated pneumonia Continue abx per ID( Vanco, Merrem) monitor for signs of infections ( Fever, WBC ) Pertinent cultures 11/13 - blood cultures : Escherichia coli, Group D Enterococcus, GNR Negative urine Legionella pneumococcal antigens and influenza Chronic compression fractures of thoracic vertebrae Chronic low back pain Deconditioninh- baseline gets around with a walker ---we will get a PT eval Problem Qualifiers (1) Respiratory failure: Qualified Code: J96.01 - Acute respiratory failure with hypoxia (2) Hyperlipidemia: Qualified Code: E78.5 - Hyperlipidemia, unspecified hyperlipidemia type (3) Benign prostatic hyperplasia: Qualified Code: N40.0 - Benign prostatic hyperplasia, presence of lower urinary tract symptoms unspecified, unspecified morphology (4) Chronic kidney disease: Qualified Code: N18.3 - Chronic kidney disease, stage 3 (moderate) (5) A-fib: Qualified Code: I48.2 - Chronic atrial fibrillation (6) Congestive heart failure: Qualified Code: I50.9 - Congestive heart failure, unspecified congestive heart failure chronicity, unspecified congestive heart failure type Marcella Jacobsen MD Nov 19, 2016 16:20
[2016-11-19] MEDS: WARFARIN SOD 1 MG TAB PO SCH (17:23)
[2016-11-19 21:10] LABS: POTASSIUM 3.2 MEQ/L (3.5-5.1)
[2016-11-19] MEDS: ATORVASTATIN 10 MG TAB PO SCH (21:21)
[2016-11-20] VITALS (11 sets, daily range): BP systolic 91–142; BP diastolic 44–73; PULSE 70–93; RESP 18–30; TEMP 97.6–98.4; O2SAT 96–100
[2016-11-20] MEDS: POTASSIUM PHOSPHATE INJ 30 MMOL in SODIUM CHLOR 0.9% 250 ML INJ 250 ML IV PRN (00:47)
[2016-11-20] MEDS: CHLORHEXIDINE GLUCONATE 2 % 1 PACK (2 CLOTHS) TOP SCH (04:00)
[2016-11-20] MEDS: RESP: ALBUTEROL 2.5 MG/3 ML NEB (PRN) INH ×2 (05:13→20:05)
[2016-11-20 06:04] LABS: INTERNATIONAL NORMALIZED RATIO 1.9 RATIO; PROTHROMBIN TIME - PATIENT 21.7 SEC (9.8-11.6)
[2016-11-20] MEDS: INSULIN NovoLIN REGULAR SUPPLEMENTAL SCALE SQ SCH ×4 (06:27→21:00)
[2016-11-20] MEDS: ERTAPENEM INJ 1,000 MG in SODIUM CHLORIDE 0.9% INJ 100 ML IV SCH (06:27)
[2016-11-20] MEDS: BUDESONIDE-FORMOTEROL 160/4.5 MCG INHALER INH SCH ×2 (08:14→22:20)
[2016-11-20] MEDS: AMIODARONE 200 MG TAB PO SCH (08:15)
[2016-11-20] MEDS: HYDROCORTISONE SOD SUCCINATE 100 MG VIAL IV PUSH SCH ×2 (08:15→22:14)
[2016-11-20] MEDS: ARTIFICIAL TEARS OPTH SOLN 15 ML BTL EACH EYE SCH ×3 (08:15→18:41)
[2016-11-20] MEDS: ESCITALOPRAM OXALATE 10 MG TAB PO SCH (08:16)
[2016-11-20] MEDS: CALCIUM/VITAMIN D 250 MG/125 U TAB PO SCH ×2 (08:16→22:15)
[2016-11-20] MEDS: DOCUSATE SODIUM 100 MG CAP PO SCH ×2 (08:16→21:00)
[2016-11-20] MEDS: SODIUM CHLORIDE 0.9% FLUSH 5 ML FLUSH IVF SCH (08:16)
[2016-11-20] MEDS: SODIUM CHLORIDE 0.9% FLUSH 5 ML FLUSH IV FLUSH SCH ×2 (08:16→21:00)
[2016-11-20] MEDS: MULTIVITAMINS/MINERALS THERAPEUTIC TAB PO SCH (08:25)
[2016-11-20] MEDS: LISINOPRIL 5 MG TAB PO SCH (08:25)
[2016-11-20] MEDS: PANTOPRAZOLE SODIUM 40 MG VIAL IV SCH (08:25)
--- NOTE | 2016-11-20 09:26 | HHI.IDPN ---
Subjective Subjective Remarks Notes reviewed D/W RN Clinically doing well and stable Temps ok On nasal O2 at 2L Gets easily SOB No new complaint C/O feeling very weak Does not want to do anything C/O some burning at paz cath site No new (+) BC CT A/P ok One BC with E coli ESBL, and Providencia 2nd BC with Providencia and Enterococcus Echo thickened AV and MV, other valves not seen well Antibiotics Invanz Vancomycin Lines PIV Past Medical History CAD, cardiomyopathy Hypogonadism History of hypertension History of right lower extreme DVT 2010 Chronic kidney disease creatinine currently 1.2 Anticoagulation use Anxiety disorder Chronic atrial fibrillation Chronic low back pain Cholelithiasis Chronic compression fractures thoracic vertebrae COPD by diagnosis Depression NOS Diverticulosis Hypertension Dyslipidemia History of ITP Macrocytosis TERRENCE Esophagitis Past Surgical History AICD placement with battery replacement 2015 Pilonidal cyst resection Colon resection with colostomy for diverticulitis with colon perforation with takedown diverting colostomy Cataract Allergies: Coded Allergies: Quinidex Extentab (Verified Allergy, Severe, PLATELETT COUNT DECREASES/ BLINDNESS, 11/02/16) Niacin (Verified Allergy, Intermediate, RASH/ITCHING, 11/02/16) MRI PRECAUTION (Verified Adverse Reaction, Severe, NON MRI COMPATIBLE DEFIB 10/22/15 LRS, 11/02/16) *MDRO Multi-Drug Resistant Organism (Verified Adverse Reaction, Unknown, ESBL, 11/17/16) ESBL E. coli (abd. 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 coli (urine) - 03/08/16, 09/28/16, 10/19/16 ESBL E.Coli (blood)-11/13/16 Objective . Vital Signs Date Time Temp Pulse Resp B/P Pulse Ox O2 Delivery O2 Flow Rate FiO2 11/20/16 06:00 81 11/20/16 04:00 84 Nasal Cannula 2.00 11/20/16 04:00 97.9 84 24 125/66 100 11/20/16 04:00 84 11/20/16 02:00 84 11/20/16 00:00 97.8 70 23 142/68 97 11/20/16 00:00 97 Nasal Cannula 2.00 11/20/16 00:00 70 11/19/16 22:00 72 11/19/16 20:00 98.3 79 32 98/54 97 11/19/16 20:00 97 Nasal Cannula 2.00 11/19/16 20:00 79 11/19/16 19:38 96 Nasal Cannula 3.00 11/19/16 18:00 81 11/19/16 16:00 96 Nasal Cannula 2.00 11/19/16 16:00 98.1 79 25 112/55 96 11/19/16 16:00 79 11/19/16 14:00 80 11/19/16 12:00 71 11/19/16 12:00 91 Nasal Cannula 2.00 11/19/16 12:00 98.1 71 30 115/59 91 11/19/16 10:00 81 11/19/16 11/19/16 11/20/16 15:00 23:00 07:00 Intake Total 1243 ml 264 ml 690 ml Output Total 250 ml 125 ml 75 ml Balance 993 ml 139 ml 615 ml Intake Oral 240 ml 120 ml 120 ml IV Total 1003 ml 144 ml 570 ml Output Urine Total 250 ml 125 ml 75 ml # Bowel Movements 1 0 0 . Laboratory Tests Test 11/19/16 06:30 White Blood Count 7.6 TH/MM3 Red Blood Count 2.99 MIL/MM3 Hemoglobin 8.9 GM/DL Hematocrit 27.0 % Mean Corpuscular Volume 90.2 FL Mean Corpuscular Hemoglobin 29.7 PG Mean Corpuscular Hemoglobin 32.9 % Concent Red Cell Distribution Width 19.7 % Platelet Count 127 TH/MM3 Mean Platelet Volume 8.2 FL Neutrophils (%) (Auto) 72.9 % Lymphocytes (%) (Auto) 17.9 % Monocytes (%) (Auto) 8.6 % Eosinophils (%) (Auto) 0.3 % Basophils (%) (Auto) 0.3 % Neutrophils # (Auto) 5.6 TH/MM3 Lymphocytes # (Auto) 1.4 TH/MM3 Monocytes # (Auto) 0.7 TH/MM3 Eosinophils # (Auto) 0.0 TH/MM3 Basophils # (Auto) 0.0 TH/MM3 CBC Comment AUTO DIFF Differential Comment AUTO DIFF CONFIRMED Platelet Estimate LOW Platelet Morphology Comment NORMAL Polychromasia 2.0 % Ovalocytes 1+ Laboratory Tests Test 11/18/16 11/19/16 11/19/16 21:07 06:30 20:37 Potassium Level 3.3 MEQ/L 3.0 MEQ/L 3.2 MEQ/L Phosphorus Level 2.2 MG/DL 2.2 MG/DL 1.8 MG/DL Sodium Level 145 MEQ/L Chloride Level 105 MEQ/L Carbon Dioxide Level 33.0 MEQ/L Anion Gap 7 MEQ/L Blood Urea Nitrogen 12 MG/DL Creatinine 0.56 MG/DL Estimat Glomerular Filtration 142 ML/MIN Rate Random Glucose 73 MG/DL Calcium Level 8.1 MG/DL Magnesium Level 1.7 MG/DL Imaging Chest X-Ray 11/16/16 0600 Signed Impressions: Service Date/Time: Wednesday, November 16, 2016 03:33 - CONCLUSION: Increasing consolidation and bilateral effusions are suspected. Loc Campbell MD Chest X-Ray 11/14/16 1433 Signed Impressions: Service Date/Time: Monday, November 14, 2016 14:57 - CONCLUSION: 1. Interval placement of left internal jugular central venous line with no pneumothorax. 2. Abnormal opacity remains at the left lung base with probable effusion. Yohan Vera MD Chest X-Ray 11/14/16 1433 Signed Impressions: Service Date/Time: Monday, November 14, 2016 14:57 - CONCLUSION: 1. Interval placement of left internal jugular central venous line with no pneumothorax. 2. Abnormal opacity remains at the left lung base with probable effusion. Yohan Vera MD Abdomen/Pelvis CT 11/14/16 0000 Signed Impressions: Service Date/Time: Monday, November 14, 2016 21:20 - CONCLUSION: 1. Contracted gallbladder with calcified gallstones again noted. 2. Multiple anterior abdominal hernias again noted. 3. Nonspecific, nonobstructive bowel gas. 4. Mild consolidation in the lung bases. Yohan Vera MD CT Angiography 11/13/16 0000 Signed Impressions: Service Date/Time: Sunday, November 13, 2016 16:43 - CONCLUSION: 1. No pulmonary embolus. 2. Emphysematous change in the upper lungs and consolidation or atelectasis in the lower lungs. 3. 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 This finding is unchanged. 4. Multiple compression fractures in the thoracic spine. Salvatore Goddard MD Physical Exam GENERAL: Awakens easily, NAD. On nasal O2. SKIN: Cool and dry, no generalized rash HEENT: [place] conjunctivae, no petechia or hemorrhage. No scleral icterus. Moist mucosa, no oral thrush. . NECK: Supple, nontender, no meningeal signs. Line ok CARDIOVASCULAR: Regular rate and rhythm without murmurs, gallops, or rubs. AICD L upper chest fairly unremarkable RESPIRATORY: Decreased BS both ling guthrie GASTROINTESTINAL: Abdomen soft, non-tender, nondistended. Bowel sounds are present and normoactive. No guarding. MUSCULOSKELETAL: Extremities without clubbing, cyanosis, or edema. No calf tenderness. NEUROLOGICAL: Grossly non-focal PSYCH: Calm and cooperative : Paz in place, urine clear LINE: PIV Assessment & Plan Remarks IMPRESSION Polymicrobial sepsis on admission, with shock, source - BP better - C/O SOB, and some cough, ?PNA - UA ok - LFT ok - had E coli ESBL+ UTI last September - has AICD, site unremarkable Cardiomyopathy, CAD Burning at paz cath site RECOMMENDATION Continue Invanz Continue Vancomycin UA and C/S Follow C/S Monitor progress Abx until 11/26 D/W RN Dr Tramaine Agosto available if needed this weekend Emilia Houston MD Nov 20, 2016 09:26
[2016-11-20] MEDS: VANCOMYCIN INJ 1,750 MG in SODIUM CHLORID 0.9% 500 ML INJ 500 ML IV SCH (11:02)
[2016-11-20 11:55] LABS: BICARBONATE 31.9 MEQ/L (21.0-32.0); POTASSIUM 3.4 MEQ/L (3.5-5.1)
[2016-11-20 13:35] LABS: BACTERIA, URINE MANY /hpf; BLOOD, URINE SMALL (NEG); COMMENT (UR) CATH-CULTURE IND; CULTURE IF INDICATED CATH CULTURE IND; GLUCOSE,URINE NEG (NEG); KETONE, URINE NEG (NEG); NITRITE,URINE NEG (NEG); URINE COLOR YELLOW (YELLW/STRAW)
[2016-11-20] MEDS ORDERED: WARFARIN SOD 1 MG TAB PO SCH (16:00)
[2016-11-20] MEDS: WARFARIN SOD 1 MG TAB PO SCH (16:34)
--- NOTE | 2016-11-20 17:55 | HHI.PR ---
Subjective Remarks feeling better, smiling, no pain complains Objective Vitals Vital Signs Date Time Temp Pulse Resp B/P Pulse Ox O2 Delivery O2 Flow Rate FiO2 11/20/16 16:00 98.4 77 27 99/50 99 11/20/16 16:00 99 Nasal Cannula 2.00 11/20/16 16:00 77 11/20/16 14:00 81 11/20/16 12:00 76 11/20/16 12:00 99 Nasal Cannula 2.00 11/20/16 12:00 98.2 76 29 134/63 99 11/20/16 10:00 90 11/20/16 08:00 97.9 93 30 139/73 99 11/20/16 08:00 99 Nasal Cannula 2.00 11/20/16 08:00 93 11/20/16 06:00 81 11/20/16 04:00 84 Nasal Cannula 2.00 11/20/16 04:00 97.9 84 24 125/66 100 11/20/16 04:00 84 11/20/16 02:00 84 11/20/16 00:00 97.8 70 23 142/68 97 11/20/16 00:00 97 Nasal Cannula 2.00 11/20/16 00:00 70 11/19/16 22:00 72 11/19/16 20:00 98.3 79 32 98/54 97 11/19/16 20:00 97 Nasal Cannula 2.00 11/19/16 20:00 79 11/19/16 19:38 96 Nasal Cannula 3.00 11/19/16 18:00 81 I/O 11/19/16 11/19/16 11/19/16 11/20/16 11/20/16 11/20/16 07:00 15:00 23:00 07:00 15:00 23:00 Intake Total 349 ml 1243 ml 264 ml 690 ml 1282 ml Output Total 170 ml 250 ml 125 ml 75 ml 600 ml Balance 179 ml 993 ml 139 ml 615 ml 682 ml Intake Oral 240 ml 240 ml 120 ml 120 ml 600 ml IV Total 109 ml 1003 ml 144 ml 570 ml 682 ml Output Urine Total 170 ml 250 ml 125 ml 75 ml 600 ml # Bowel Movements 0 1 0 0 1 Result Diagram: 11/19/16 0630 11/20/16 1048 Imaging Last Impressions Chest X-Ray 11/16/16 0600 Signed Impressions: Service Date/Time: Wednesday, November 16, 2016 03:33 - CONCLUSION: Increasing consolidation and bilateral effusions are suspected. Loc Campbell MD Abdomen/Pelvis CT 11/14/16 0000 Signed Impressions: Service Date/Time: Monday, November 14, 2016 21:20 - CONCLUSION: 1. Contracted gallbladder with calcified gallstones again noted. 2. Multiple anterior abdominal hernias again noted. 3. Nonspecific, nonobstructive bowel gas. 4. Mild consolidation in the lung bases. Yohan Vera MD CT Angiography 11/13/16 0000 Signed Impressions: Service Date/Time: Sunday, November 13, 2016 16:43 - CONCLUSION: 1. No pulmonary embolus. 2. Emphysematous change in the upper lungs and consolidation or atelectasis in the lower lungs. 3. 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 This finding is unchanged. 4. Multiple compression fractures in the thoracic spine. Salvatore Goddard MD Objective Remarks awake and alert, oriented x 3 anicteric lungs decreased breath sonds regular rhythm,- telemetry- paced abdomen soft, nontender paz in place extremities -moves all extremities- Urinary Catheter: Yes Paz insert reason: Prolonged Immobilization Line: Central Venous Catheter Side: Right Location: Femoral A/P Problem List: (1) Respiratory failure ICD Code: J96.90 Status: Acute (2) Severe sepsis with acute organ dysfunction ICD Code: A41.9 Status: Acute (3) Hypomagnesemia ICD Code: E83.42 Status: Acute (4) Hypophosphatemia ICD Code: E83.39 Status: Acute (5) Hyperlipidemia ICD Code: E78.5 Status: Chronic (6) Anemia, normocytic normochromic ICD Code: D64.9 Status: Chronic (7) Benign prostatic hyperplasia ICD Code: N40.0 Status: Chronic (8) Chronic kidney disease ICD Code: N18.9 Status: Acute (9) A-fib ICD Code: I48.91 Status: Acute (10) Congestive heart failure ICD Code: I50.9 Status: Acute Assessment and Plan Neuro/psych: Anxiety depression- history of Panic attacks On Escitalopram 10 mg by mouth daily for depression. Klonopin 0.5 mg BID on hold Acetaminophen for fever [place]/morphine for pain management consider psychiatry consult - patient and partner agrees appears in a better mood today CV: Chronic atrial fibrillation Coronary artery disease status post OR 1987 Cardiomyopathy Congestive heart failure/systolic EF 35-40% 10/16 Hypertension Dyslipidemia Mildly aortic stenosis Severe septic shock 2-D echocardiogram 10/16 revealed EF 35-40% regional hypokinesis. Mild aortic stenosis Echo from 11/14:EF 20% to 25%. Diffuse hypokinesis. Grade 1 diastolic dysfunction. Monitor HR and BP keep MAP>65mmHg. Lisinopril 2.5mg daily Solu-Cortef 50 mg Q12- decrease to 25 q 12 today 11/10 as OP. on Chronic prednisone use 20 milligrams daily.as OP Coreg 6.25 mg by mouth twice a day on hold Continue amiodarone 200 mg by mouth daily for A. fib. Continue atorvastatin 10 mg daily for dyslipidemia keep K above 4.0 Possible healthcare associated pneumonia Continue abx per ID- on Vancomycin and Invanz Pertinent cultures 11/13 - blood cultures : Escherichia coli, Group D Enterococcus, GNR Negative urine Legionella pneumococcal antigens and influenza Resp: Acute hypoxemic respiratory failure COPD Possible HCAP Continue with oxygen keep sat >92% Bronchodilator therapy every 6 hours and as needed NIPPV PRN for resp distress Symbicort twice daily Pulm: Dr. Villarreal GI: History of GI bleed Morbid obesity Cholelithiasis Chronic abdominal pain Chronic constipation Diverticulosis On PO heart healthy diet Protonix for GI prophylaxis. Colace/as needed Senokot for bowel regimen EGD from last admission - gastritis bx from antrum, normal endoscopy otherwise , retroflexed revealed no abnormalities, few diverticulosis in the sigmoid, normal surgical anastamosis, no active bleed, small polyp in the ascending colon removed by snare, the colon mucosa was otherwise normal, retroflexed views revealed internal hemorrhoids, small internal hemorrhoids, revealed no abnormalities of the rectum. : BPH Hypogonadism Chronic kidney disease stage III HYpokalemia Monitor renal function, I/O's, electrolytes replacement per protocol. give KCL 40 meq po x 1 now. Start KCL 20 meq po daily tomorrow recheck BMP in am Endo: Sliding-scale insulin to maintain euglycemia. Accu-Cheks every 6 hours/low regimen Heme: Normocytic anemia history of ITP Chronic VKA use At home on Coumadin 2 mg by mouth daily. Monitor CBC/CMP daily.. Daily INRs with pharmacy to manage. Chronically prednisone 20 mg daily for ITP currently on Solucortef 50 mg q 12 stress dose- since 11/17- gradually transition to above po dose gradually Chronic compression fractures of thoracic vertebrae Chronic low back pain Deconditioning- baseline gets around with a walker PT eval Problem Qualifiers (1) Respiratory failure: Qualified Code: J96.01 - Acute respiratory failure with hypoxia (2) Hyperlipidemia: Qualified Code: E78.5 - Hyperlipidemia, unspecified hyperlipidemia type (3) Benign prostatic hyperplasia: Qualified Code: N40.0 - Benign prostatic hyperplasia, presence of lower urinary tract symptoms unspecified, unspecified morphology (4) Chronic kidney disease: Qualified Code: N18.3 - Chronic kidney disease, stage 3 (moderate) (5) A-fib: Qualified Code: I48.2 - Chronic atrial fibrillation (6) Congestive heart failure: Qualified Code: I50.9 - Congestive heart failure, unspecified congestive heart failure chronicity, unspecified congestive heart failure type Marcella Jacobsen MD Nov 20, 2016 17:55
[2016-11-20] MEDS ORDERED: POTASSIUM CHLORIDE 20 MEQ CONTROLLED RELEASE TAB PO ONE (18:00)
[2016-11-20] MEDS: ATORVASTATIN 10 MG TAB PO SCH (22:15)
[2016-11-21] VITALS (9 sets, daily range): BP systolic 105–137; BP diastolic 54–83; PULSE 71–87; RESP 16–22; TEMP 97.9–98.9; O2SAT 93–99
[2016-11-21] MEDS: CHLORHEXIDINE GLUCONATE 2 % 1 PACK (2 CLOTHS) TOP SCH (04:00)
[2016-11-21] MEDS: ERTAPENEM INJ 1,000 MG in SODIUM CHLORIDE 0.9% INJ 100 ML IV SCH (04:40)
[2016-11-21 06:28] LABS: INTERNATIONAL NORMALIZED RATIO 2.1 RATIO; PROTHROMBIN TIME - PATIENT 24.4 SEC (9.8-11.6)
[2016-11-21 06:53] LABS: BICARBONATE 29.4 MEQ/L (21.0-32.0); POTASSIUM 4.2 MEQ/L (3.5-5.1)
[2016-11-21] MEDS: INSULIN NovoLIN REGULAR SUPPLEMENTAL SCALE SQ SCH ×4 (07:00→21:00)
[2016-11-21] MEDS: SODIUM CHLORIDE 0.9% FLUSH 5 ML FLUSH IVF SCH (09:00)
[2016-11-21] MEDS: ARTIFICIAL TEARS OPTH SOLN 15 ML BTL EACH EYE SCH ×3 (09:00→16:35)
[2016-11-21] MEDS: DOCUSATE SODIUM 100 MG CAP PO SCH ×2 (09:00→21:00)
[2016-11-21] MEDS: PANTOPRAZOLE SODIUM 40 MG VIAL IV SCH (09:10)
[2016-11-21] MEDS: HYDROCORTISONE SOD SUCCINATE 100 MG VIAL IV PUSH SCH ×2 (09:10→21:00)
[2016-11-21] MEDS: SODIUM CHLORIDE 0.9% FLUSH 5 ML FLUSH IV FLUSH SCH ×2 (09:10→21:00)
[2016-11-21] MEDS: BUDESONIDE-FORMOTEROL 160/4.5 MCG INHALER INH SCH ×2 (09:10→21:01)
[2016-11-21] MEDS: MULTIVITAMINS/MINERALS THERAPEUTIC TAB PO SCH (09:11)
[2016-11-21] MEDS: ESCITALOPRAM OXALATE 10 MG TAB PO SCH (09:11)
[2016-11-21] MEDS: LISINOPRIL 5 MG TAB PO SCH (09:11)
[2016-11-21] MEDS: POTASSIUM CHLORIDE 20 MEQ CONTROLLED RELEASE TAB PO SCH (09:11)
[2016-11-21] MEDS: CALCIUM/VITAMIN D 250 MG/125 U TAB PO SCH ×2 (09:11→21:00)
[2016-11-21] MEDS: AMIODARONE 200 MG TAB PO SCH (09:11)
[2016-11-21] MEDS: RESP: ALBUTEROL 2.5 MG/3 ML NEB (PRN) INH ×2 (09:38→12:59)
--- NOTE | 2016-11-21 10:26 | HHI.PR ---
Subjective Remarks still with sob- now on oxygen via N/C @ 3 lit/min. has some wheezing. no fever. Objective Vitals Vital Signs Date Time Temp Pulse Resp B/P Pulse Ox O2 Delivery O2 Flow Rate FiO2 11/21/16 09:38 93 Nasal Cannula 3.00 11/21/16 09:15 Nasal Cannula 2.00 11/21/16 04:00 98.2 71 18 123/83 99 11/21/16 00:00 98.1 79 18 126/59 96 11/20/16 20:06 96 Nasal Cannula 3.00 11/20/16 20:00 97.6 86 18 91/44 99 11/20/16 20:00 Nasal Cannula 2.00 11/20/16 20:00 83 11/20/16 16:00 98.4 77 27 99/50 99 11/20/16 16:00 99 Nasal Cannula 2.00 11/20/16 16:00 77 11/20/16 14:00 81 11/20/16 12:00 76 11/20/16 12:00 99 Nasal Cannula 2.00 11/20/16 12:00 98.2 76 29 134/63 99 I/O 11/20/16 11/20/16 11/20/16 11/21/16 11/21/16 11/21/16 07:00 15:00 23:00 07:00 15:00 23:00 Intake Total 690 ml 1282 ml 240 ml 100 ml Output Total 75 ml 600 ml 0 ml 300 ml Balance 615 ml 682 ml 240 ml -200 ml Intake Oral 120 ml 600 ml 240 ml 100 ml IV Total 570 ml 682 ml Output Urine Total 75 ml 600 ml 0 ml 300 ml # Bowel Movements 0 1 0 0 Result Diagram: 11/19/16 0630 11/21/16 0527 Imaging Last Impressions Chest X-Ray 11/16/16 0600 Signed Impressions: Service Date/Time: Wednesday, November 16, 2016 03:33 - CONCLUSION: Increasing consolidation and bilateral effusions are suspected. Loc Campbell MD Abdomen/Pelvis CT 11/14/16 0000 Signed Impressions: Service Date/Time: Monday, November 14, 2016 21:20 - CONCLUSION: 1. Contracted gallbladder with calcified gallstones again noted. 2. Multiple anterior abdominal hernias again noted. 3. Nonspecific, nonobstructive bowel gas. 4. Mild consolidation in the lung bases. Yohan Vera MD CT Angiography 11/13/16 0000 Signed Impressions: Service Date/Time: Sunday, November 13, 2016 16:43 - CONCLUSION: 1. No pulmonary embolus. 2. Emphysematous change in the upper lungs and consolidation or atelectasis in the lower lungs. 3. 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 This finding is unchanged. 4. Multiple compression fractures in the thoracic spine. Salvatore Goddard MD Objective Remarks GENERAL: with some sob and wheezing CARDIOVASCULAR: Regular rate and irregular rhythm without murmurs, gallops, or rubs. RESPIRATORY: bilateral wheezing and prolonged expiration. GASTROINTESTINAL: Abdomen soft, non-tender, nondistended. Normal, active bowel sounds MUSCULOSKELETAL: Extremities without clubbing, cyanosis, or edema. NEURO: Alert & Oriented x4 to person, place, time, situation. Moves all ext x4 Procedures central line placement Medications and IVs Current Medications Norepinephrine Bitartrate (Levophed-Dextrose Drip) 250 ml @ 0 mls/hr TITRATE IV Last administered on 11/15/16 01:13; Start 11/13/16 at 12:15; Stop 11/17/16 at 08:11; Status DC Terbutaline Sulfate 1 mg 1 mg UNSCH PRN SQ For Extravasation; Start 11/13/16 at 12:15 Dopamine HCl/ Dextrose (DOPamine INJ PREMIX) 500 ml @ 0 mls/hr TITRATE IV ; Start 11/13/16 at 12:15; Stop 11/15/16 at 14:05; Status DC Terbutaline Sulfate 1 mg 1 mg UNSCH PRN SQ For Extravasation; Start 11/13/16 at 12:15; Status Cancel Vancomycin HCl 1000 mg/Sodium Chloride 250 ml @ 250 mls/hr ONCE ONCE IV ; Start 11/13/16 at 12:45; Stop 11/13/16 at 13:44; Status DC Piperacillin Sod/ Tazobactam Sod 50 ml @ 100 mls/hr ONCE ONCE IV Last administered on 11/13/16 13:13; Start 11/13/16 at 12:45; Stop 11/13/16 at 13:14 ; Status DC Sodium Chloride 1,000 ml @ 999 mls/hr BOLUS ONCE IV Last administered on 11/13 14:04; Start 11/13/16 at 13:15; Stop 11/13/16 at 14:15; Status DC Sodium Chloride (NS 1000 ml Inj) 1,000 ml @ 84 mls/hr [id number] IV Last administered on 11/15/16 01:13; Start 11/13/16 at 13:13; Stop 11/15/16 at 14:00 ; Status DC IV Flush (NS Flush) 2 ml UNSCH PRN IV FLUSH FLUSH AFTER USING IV ACCESS Last administered on 11/15/16 08:12; Start 11/13/16 at 13:15 IV Flush (NS Flush) 2 ml BID IV FLUSH ; Start 11/13/16 at 21:00; Stop 11/13/16 at 21:00; Status DC Acetaminophen (Tylenol) 650 mg Q6H PRN PO FEVER >101F; Start 11/13/16 at 13:15 Acetaminophen/ Hydrocodone Bitart (Shevlin 5-325 Mg) 1 tab Q4H PRN PO PAIN SCALE 1 TO 5 Last administered on 11/13/16 16:00; Start 11/13/16 at 13:15 Morphine Sulfate (Morphine Inj) 2 mg Q2H PRN IV PAIN SCALE 6 TO 10 Last administered on 11/16/16 06:54; Start 11/13/16 at 13:15 Pantoprazole Sodium (Protonix Inj) 40 mg DAILY IV Last administered on 09:10; Start 11/14/16 at 09:00 Artificial Tears (Tears Naturale Opth Soln) 1 drop TID EACH EYE Last administered on 11/20/16 18:41; Start 11/13/16 at 18:00 Ondansetron HCl (Zofran Inj) 4 mg Q6H PRN IV NAUSEA OR VOMITING; Start at 13:15 Docusate Sodium (Colace) 100 mg BID PO Last administered on 11/19/16 09:13; Start 11/13/16 at 21:00 Sennosides (Senokot) 17.2 mg Q12H PRN PO CONSTIPATION; Start 11/13/16 at 13:15 Albuterol/ Ipratropium (Duoneb Neb) 1 ampule Q6HR NEB INH Last administered on 11/17/16 15:46; Start 11/13/16 at 16:00; Stop 11/17/16 at 16:00; Status DC Albuterol Sulfate (Albuterol Neb) 2.5 mg Q2HR NEB PRN INH SOB/WHEEZING Last administered on 11/21/16 09:38; Start 11/13/16 at 13:15 Miscellaneous Information 1 Q361D XX ; Start 11/13/16 at 13:15; Stop 11/13/16 at 16:59; Status DC Chlorhexidine Gluconate (Chlorhexidine 2% Cloth) 3 pack Taper DAILY@04 TOP ; Start 11/14/16 at 04:00; Stop 11/14/16 at 04:00; Status DC Chlorhexidine Gluconate (Chlorhexidine 2% Cloth) 3 pack UNSCH PRN TOP HYGIENIC CARE; Start 11/13/16 at 13:15; Stop 11/13/16 at 16:59; Status DC Dextrose (D50w (Vial) Inj) 25 ml UNSCH PRN IV PUSH HYPOGLYCEMIA-SEE COMMENTS; Start 11/13/16 at 13:15 Glucagon (Glucagon Inj) 1 mg UNSCH PRN OTHER HYPOGLYCEMIA-SEE COMMENTS; Start 11/13/16 at 13:15 Insulin Human Regular (NovoLIN R SUPPLEMENTAL SCALE) 1 Q6HR SQ Last administered on 11/15/16 11:36; Start 11/13/16 at 18:00; Stop 11/15/16 at 14:01 ; Status DC Amiodarone HCl (Cordarone) 200 mg DAILY PO Last administered on 11/21/16 09:11 ; Start 11/14/16 at 09:00 Atorvastatin Calcium (Lipitor) 10 mg HS PO Last administered on 11/20/16 22:15 ; Start 11/13/16 at 21:00 Budesonide/ Formoterol Fumarate (Symbicort 160-4.5 Inh) 2 puff Q12HR INH Last administered on 11/21/16 09:10; Start 11/13/16 at 21:00 Escitalopram Oxalate (Lexapro) 10 mg DAILY PO Last administered on 11/21/16 09 :11; Start 11/14/16 at 09:00 Multivitamins/ Minerals Therapeutic (Theragran M Tab) 1 tab DAILY PO Last administered on 11/21/16 09:11; Start 11/14/16 at 09:00 Tamsulosin HCl (Flomax) 0.4 mg HS PO ; Start 11/13/16 at 21:00; Status Hold Calcium/Vitamin D 2 mg 2 mg BID PO Last administered on 11/13/16 20:50; Start 11/13/16 at 21:00; Stop 11/14/16 at 09:09; Status DC Magnesium Sulfate/ Dextrose (Magnesium Sulfate 1 Gm Premix) 100 ml @ 100 mls/ hr Q1H IV Last administered on 11/13/16 14:30; Start 11/13/16 at 13:30; Stop 11/13/16 at 15:29; Status DC Dextrose 25 ml 25 ml ONCE ONCE IV PUSH Last administered on 11/13/16 13:58; Start 11/13/16 at 13:45; Stop 11/13/16 at 13:46; Status DC Dextrose/Sodium Chloride 1,000 ml @ 100 mls/hr Q10H IV ; Start 11/13/16 at 13: 45; Stop 11/13/16 at 13:50; Status DC Vasopressin 40 units/Dextrose 100 ml @ 1.5 mls/hr Q24H IV Last administered on 11/13/16 20:49; Start 11/13/16 at 16:00; Stop 11/17/16 at 08:12; Status DC Sodium Chloride (NS 1000 ml Inj) 1,000 ml @ 999 mls/hr BOLUS ONCE IV Last administered on 11/13/16 16:00; Start 11/13/16 at 16:00; Stop 11/13/16 at 17:00 ; Status DC Hydrocortisone Sodium Succinate 100 mg 100 mg Q8H IV PUSH Last administered on 11/15/16 08:11; Start 11/13/16 at 16:00; Stop 11/15/16 at 14:01; Status DC Sodium Phosphate 30 mmol/Sodium Chloride 260 ml @ 43.333 mls/ hr ONCE ONCE IV Last administered on 11/13/16 15:45; Start 11/13/16 at 15:45; Stop 11/13/16 at 21:44; Status DC Magnesium Sulfate/ Dextrose 100 ml @ 100 mls/hr Q1H IV Last administered on 17:00; Start 11/13/16 at 16:00; Stop 11/13/16 at 17:59; Status DC Pharmacy Profile Note 0 ml @ 0 mls/hr UNSCH OTHER ; Start 11/13/16 at 15:45 Potassium Chloride 100 ml @ 50 mls/hr Q2H PRN IV For Potassium 2.8 - 3.2 mEq/ L Last administered on 11/15/16t 08:11; Start 11/13/16 at 16:00; Stop 11/21/16 at 07:53; Status DC Potassium Chloride 100 ml @ 50 mls/hr Q2H PRN IV For Potassium 2.8 - 3.2 mEq/L ; Start 11/13/16 at 16:00; Stop 11/21/16 at 07:53; Status DC Potassium Chloride 100 ml @ 25 mls/hr UNSCH PRN IV For Potassium 3.3 - 3.5 mEq /L; Start 11/13/16 at 16:00; Stop 11/21/16 at 07:53; Status DC Potassium Chloride 100 ml @ 50 mls/hr Q2H PRN IV For Potassium 3.3 - 3.5 mEq/L ; Start 11/13/16 at 16:00; Stop 11/21/16 at 07:53; Status DC Magnesium Sulfate/ Sodium Chloride (Magnesium Sulfate Inj/NS Inj) 100 ml @ 50 mls/hr UNSCH PRN IV For Magnesium 0.9 - 1.1 mg/dL; Start 11/13/16 at 16:00; Stop 11/21/16 at 07:53; Status DC Magnesium Oxide 800 mg 800 mg UNSCH PRN PO For Magnesium 1.2 - 1.6 mg/dL; Start 11/13/16 at 16:00; Stop 11/21/16 at 07:53; Status DC Magnesium Sulfate/ Sodium Chloride (Magnesium Sulfate Inj/NS Inj) 100 ml @ 50 mls/hr UNSCH PRN IV For Magnesium 1.2 - 1.6 mg/dL; Start 11/13/16 at 16:00; Stop 11/21/16 at 07:53; Status DC Potassium Phosphate 2000 mg 2,000 mg Q4H PRN PO For Phosphorus < 2.5 mg/dL; Start 11/13/16 at 16:00; Stop 11/21/16 at 07:53; Status DC Sodium Phosphate/ Sodium Chloride (Sodium Phosphate Inj/NS 250 ml Inj) 250 ml @ 42 mls/hr UNSCH PRN IV For Phosphorus < 2.5 mg/dL Last administered on 06:39; Start 11/13/16 at 16:00; Stop 11/21/16 at 07:53; Status DC Potassium Phosphate 2000 mg 2,000 mg UNSCH PRN PO/TUBE SEE LABEL COMMENTS; Start 11/13/16 at 15:52; Stop 11/21/16 at 07:53; Status DC Potassium Phosphate/Sodium Chloride (Potassium Phosphate Inj/NS 250 ml Inj) 260 ml @ 42 mls/hr UNSCH PRN IV SEE LABEL COMMENTS Last administered on 11/20/16 00:47; Start 11/13/16 at 15:52; Stop 11/21/16 at 07:53; Status DC IV Flush (NS Flush) 2 ml UNSCH PRN IV FLUSH FLUSH AFTER USING IV ACCESS; Start 11/13/16 at 16:30; Stop 11/13/16 at 16:54; Status DC IV Flush 2 ml 2 ml BID IV FLUSH Last administered on 11/21/16 09:10; Start at 21:00 Piperacillin Sod/ Tazobactam Sod 100 ml @ 200 mls/hr Q6H IV Last administered on 11/14/16 08:38; Start 11/13/16 at 20:00; Stop 11/14/16 at 13:39; Status DC Azithromycin/ Sodium Chloride (Zithromax Inj/ NS 250 ml Inj) 250 ml @ 250 mls/ hr Q24H IV Last administered on 11/14/16 18:21; Start 11/13/16 at 18:00; Stop 11/15/16 at 08:43; Status DC Miscellaneous Information 1 Q361D XX ; Start 11/13/16 at 16:30 Chlorhexidine Gluconate (Chlorhexidine 2% Cloth) Taper DAILY@04 TOP Last administered on 11/19/16 04:00; Start 11/14/16 at 04:00; Stop 11/10/17 at 03:59 Chlorhexidine Gluconate 3 pack 3 pack UNSCH PRN TOP HYGIENIC CARE; Start at 16:30 Pharmacy Profile Note (Coumadin Consult Pharmacy) 0 ml @ 0 mls/hr UNSCH OTHER ; Start 11/13/16 at 16:30 Iohexol (Omnipaque 350 Inj) 75 ml STK-MED ONCE IV Last administered on 17:00; Start 11/13/16 at 17:00; Stop 11/13/16 at 17:01; Status DC Warfarin Sodium 1 mg 1 mg DAILY@16 PO Last administered on 11/13/16 18:00; Start 11/13/16 at 18:00; Stop 11/14/16 at 15:07; Status DC Vancomycin HCl 1000 mg/Sodium Chloride 250 ml @ 250 mls/hr ONCE ONCE IV Last administered on 11/13/16 21:40; Start 11/13/16 at 21:30; Stop 11/13/16 at 22:29 ; Status DC Vancomycin HCl/ Sodium Chloride (Vancomycin Inj/ NS 250 ml Inj) 258 ml @ 250 mls/hr ONCE ONCE IV Last administered on 11/14/16 00:40; Start 11/14/16 at 00 :00; Stop 11/14/16 at 01:01; Status DC Calcium/Vitamin D 500 mg 500 mg BID PO Last administered on 11/21/16 09:11; Start 11/14/16 at 21:00 Vancomycin HCl/ Sodium Chloride (Vancomycin Inj/ NS 500 ml Inj) 517.5 ml @ 258.75 mls/ hr Q24H IV Last administered on 11/20/16 11:02; Start 11/14/16 at 12:00 Miscellaneous Information SPECIFIC LAB TO BE ... ONCE ONCE XX Last administered on 11/17/16 11:45; Start 11/17/16 at 11:45; Stop 11/17/16 at 11:46 ; Status DC Miscellaneous Medication (ASP Crit: Doc ESBL, MDR A baumannii or P aer) 1 UNSCH X1 PRN XX PHARMACY DOCUMENTATION; Start 11/14/16 at 13:30; Stop 11/15/16 at 13: 29; Status DC Miscellaneous Medication 1 1 UNSCH X1 PRN XX PHARMACY DOCUMENTATION; Start at 13:30; Stop 11/15/16 at 13:29; Status DC Meropenem/Sodium Chloride (Merrem Inj/NS Inj) 100 ml @ 200 mls/hr Q8H IV Last administered on 11/18/16 05:56; Start 11/14/16 at 14:00; Stop 11/18/16 at 09:45 ; Status DC IV Flush (NS Flush) DAILY IVF Last administered on 11/19/16 11:07; Start at 09:00 IV Flush (NS Flush) UNSCH PRN IVF SEE PROTOCOL; Start 11/14/16 at 14:45 Diatrizoate Meglum/ Diatrizoate Sod (Md Brown Liq) 18 ml ONCE ONCE PO Last administered on 11/14/16 16:24; Start 11/14/16 at 14:45; Stop 11/14/16 at 14:46; Status DC Warfarin Sodium (Coumadin) 2 mg DAILY@16 PO Last administered on 11/15/16 17: 24; Start 11/14/16 at 16:00; Stop 11/16/16 at 08:33; Status DC Iohexol (Omnipaque 350 Inj) 93 ml STK-MED ONCE IV Last administered on 21:25; Start 11/14/16 at 21:25; Stop 11/14/16 at 21:26; Status DC Azithromycin (Zithromax) 500 mg DAILY PO Last administered on 11/16/16 08:38; Start 11/15/16 at 09:00; Stop 11/17/16 at 09:26; Status DC Hydrocortisone Sodium Succinate (SoluCORTEF INJ) 50 mg Q8H IV PUSH Last administered on 11/17/16 00:00; Start 11/15/16 at 16:00; Stop 11/17/16 at 08:12 ; Status DC Insulin Human Regular (NovoLIN R SUPPLEMENTAL SCALE) 1 ACHS SQ Last administered on 11/19/16 17:33; Start 11/15/16 at 16:00 Warfarin Sodium (Coumadin) 1.5 mg DAILY@16 PO Last administered on 11/20/16 16 :34; Start 11/16/16 at 16:00 Bumetanide (Bumex Inj) 1 mg ONCE ONCE IV PUSH Last administered on 11/16/16 09:17; Start 11/16/16 at 09:00; Stop 11/16/16 at 09:12; Status DC Hydrocortisone Sodium Succinate (SoluCORTEF INJ) 50 mg Q12H IV PUSH Last administered on 11/21/16 09:10; Start 11/17/16 at 21:00 Bumetanide (Bumex Inj) 1 mg ONCE ONCE IV PUSH Last administered on 11/17/16 09:46; Start 11/17/16 at 09:15; Stop 11/17/16 at 09:26; Status DC Bumetanide (Bumex Inj) 1 mg ONCE ONCE IV PUSH Last administered on 11/18/16 10:24; Start 11/18/16 at 10:00; Stop 11/18/16 at 10:16; Status DC Lisinopril (Prinivil) 2.5 mg DAILY PO Last administered on 11/21/16 09:11; Start 11/18/16 at 10:00 Miscellaneous (Pill Splitter) 1 ea UNSCH PRN OTHER SEE LABEL COMMENTS Last administered on 11/18/16 16:45; Start 11/18/16 at 09:30 Miscellaneous Medication (ASP Crit: Doc ESBL, MDR A baumannii or P aer) 1 UNSCH X1 PRN XX PHARMACY DOCUMENTATION; Start 11/18/16 at 09:45; Stop 11/19/16 at 09: 44; Status DC Miscellaneous Medication 1 1 UNSCH X1 PRN XX PHARMACY DOCUMENTATION; Start at 09:45; Stop 11/19/16 at 09:44; Status DC Ertapenem 1000 mg/ Sodium Chloride 100 ml @ 200 mls/hr Q24H IV ; Start at 11:00; Stop 11/19/16 at 03:21; Status DC Ertapenem/Sodium Chloride (INVanz INJ/NS Inj) 100 ml @ 200 mls/hr Q24H IV Last administered on 11/21/16 04:40; Start 11/19/16 at 04:00 Warfarin Sodium (Coumadin) 0.5 mg ONCE PO Last administered on 11/19/16 17:24 ; Start 11/19/16 at 16:00; Stop 11/19/16 at 21:00; Status DC Warfarin Sodium (Coumadin) 0.5 mg ONCE PO Last administered on 11/20/16 16:34 ; Start 11/20/16 at 16:00; Stop 11/20/16 at 21:00; Status DC Miscellaneous Information SPECIFIC LAB TO BE DRAWN:VANCOMYCIN TROUGH DATE TO... ONCE ONCE XX ; Start 11/21/16 at 11:45; Stop 11/21/16 at 11:46 Potassium Chloride (KCl) 40 meq ONCE ONCE PO Last administered on 11/20/16 18 :45; Start 11/20/16 at 18:00; Stop 11/20/16 at 18:21; Status DC Potassium Chloride (KCl) 20 meq DAILY PO Last administered on 11/21/16 09:11; Start 11/21/16 at 09:00 Line: Central Venous Catheter Side: Right Location: Femoral A/P Assessment and Plan A/P Acute hypoxemic respiratory failure COPD Possible HCAP Continue with oxygen keep sat >92% Bronchodilator therapy ; scheduled and as needed NIPPV PRN for resp distress Symbicort twice daily will consult pulmonary Anxiety depression- history of Panic attacks On Escitalopram 10 mg by mouth daily for depression. Klonopin 0.5 mg BID on hold Acetaminophen for fever Shevlin/morphine for pain management consider psychiatry consult Chronic atrial fibrillation Coronary artery disease status post CA 1987 Cardiomyopathy Congestive heart failure/systolic EF 35-40% 10/16 Hypertension Dyslipidemia Mildly aortic stenosis Severe septic shock 2-D echocardiogram 10/16 revealed EF 35-40% regional hypokinesis. Mild aortic stenosis Echo from 11/14:EF 20% to 25%. Diffuse hypokinesis. Grade 1 diastolic dysfunction. Monitor HR and BP keep MAP>65mmHg. Lisinopril 2.5mg daily Solu-Cortef 50 mg Q12- will taper off within the next two days. as OP. on Chronic prednisone use 20 milligrams daily.as OP Coreg 6.25 mg by mouth twice a day on hold Continue amiodarone 200 mg by mouth daily for A. fib. Continue atorvastatin 10 mg daily for dyslipidemia keep K above 4.0 Possible healthcare associated pneumonia Continue abx per ID- on Vancomycin and Invanz Pertinent cultures 11/13 - blood cultures : Escherichia coli, Group D Enterococcus, GNR Negative urine Legionella pneumococcal antigens and influenza History of GI bleed Morbid obesity Cholelithiasis Chronic abdominal pain Chronic constipation Diverticulosis On PO heart healthy diet Protonix for GI prophylaxis. Colace/as needed Senokot for bowel regimen EGD from last admission - gastritis bx from antrum, normal endoscopy otherwise , retroflexed revealed no abnormalities, few diverticulosis in the sigmoid, normal surgical anastomosis, no active bleed, small polyp in the ascending colon removed by snare, the colon mucosa was otherwise normal, retroflexed views revealed internal hemorrhoids, small internal hemorrhoids, revealed no abnormalities of the rectum. BPH Hypogonadism Chronic kidney disease stage III HYpokalemia Monitor renal function and electrolytes periodically. Sliding-scale insulin to maintain euglycemia. Accu-Cheks every 6 hours/low regimen Normocytic anemia history of ITP Chronic VKA use At home on Coumadin 2 mg by mouth daily. Monitor CBC/CMP daily.. Daily INRs with pharmacy to manage. Chronically prednisone 20 mg daily for ITP currently on Solucortef 50 mg q 12 stress dose- since 11/17- gradually transition to above po dose gradually Chronic compression fractures of thoracic vertebrae Chronic low back pain Deconditioning- baseline gets around with a walker continue with pain control and PT. DVT prophylaxis with coumadin. David Pratt MD Nov 21, 2016 10:26
[2016-11-21] MEDS ORDERED: PHARMACY ORDERED LAB XX ONE (11:45)
[2016-11-21] MEDS ORDERED: RESP: ALBUTEROL 2.5 MG/IPRATROPIUM 0.5 MG NEB (SCH) NEB (12:00)
[2016-11-21] MEDS: VANCOMYCIN INJ 1,750 MG in SODIUM CHLORID 0.9% 500 ML INJ 500 ML IV SCH (14:54)
[2016-11-21] MEDS: RESP: ALBUTEROL 2.5 MG/IPRATROPIUM 0.5 MG NEB (SCH) NEB ×2 (16:15→19:39)
[2016-11-21] MEDS: WARFARIN SOD 1 MG TAB PO SCH (16:32)
[2016-11-21] MEDS: RESP: ACETYLCYSTEINE 10% 30 ML NEB NEB SCH (19:39)
[2016-11-21] MEDS: ATORVASTATIN 10 MG TAB PO SCH (21:00)
[2016-11-22] VITALS: BP 118/59; PULSE 80; RESP 18; TEMP 97.7; O2SAT 99
[2016-11-22] MEDS: RESP: ALBUTEROL 2.5 MG/IPRATROPIUM 0.5 MG NEB (SCH) NEB ×4 (03:24→21:23)
[2016-11-22 04:00] VITALS: BP 136/72; PULSE 84; RESP 14; TEMP 98.2; O2SAT 98
[2016-11-22] MEDS: ERTAPENEM INJ 1,000 MG in SODIUM CHLORIDE 0.9% INJ 100 ML IV SCH (04:00)
[2016-11-22] MEDS: CHLORHEXIDINE GLUCONATE 2 % 1 PACK (2 CLOTHS) TOP SCH (04:00)
[2016-11-22 04:39] LABS: INTERNATIONAL NORMALIZED RATIO 2.5 RATIO; PROTHROMBIN TIME - PATIENT 29.1 SEC (9.8-11.6)
--- NOTE | 2016-11-22 06:20 | MB ---
cc: ROXANN HOSKINS MD, JOHN DATE OF CONSULTATION: 11/21/2016 REASON FOR CONSULTATION: Respiratory failure and bibasilar lung infiltrates. HISTORY OF PRESENT ILLNESS: This is a 76 year-old white male with a history of chronic kidney disease and atrial fibrillation, was admitted with GI bleeding and shortness of breath, as well as cough and fever. The patient has been on anticoagulants for chronic atrial fibrillation and was having a coagulopathy. He was brought in with hypoxia and had to be placed on 100% non-rebreather mask and his chest x-ray apparently showed evidence of the left lung infiltrate. The patient has had been on IV fluids upon admission and was on pressors briefly. Subsequently the patient was found to have bibasilar pulmonary infiltrates and met criteria for sepsis and was on multiple antibiotics and bronchodilators. He also had hypomagnesemia and hypophosphatemia and has a history of obesity and chronic leg swelling, also has had some anxiety. The patient was stabilized since admission and was switched to a nasal cannula at 3 liters and transferred to the fourth floor for further management and physiotherapy. His last chest x-ray did demonstrate evidence of bibasilar infiltrates with small effusions. Presently the patient is comfortable on O2 nasal cannula 3 liters. Denies any chest pains or abdominal pains. Denies nausea, vomiting but has some leg swelling. PAST MEDICAL HISTORY: 1. Hypertension 2. Extreme obesity 3. DVT of the right leg. 4. Chronic kidney disease stage III. 5. Chronic abdominal pain 6. Coronary artery disease with atrial fibrillation. 7. Chronic lower back pain 8. Compression fracture of the thoracic vertebrae. 9. Chronic constipation 10. Diverticulosis 11. History for depression. 12. Dyslipidemia 13. History of ITP 14. Macrocytosis 15. Esophagitis. PAST SURGICAL HISTORY: 1. AICD placement, as well as battery replacement last year. 2. Pilonidal cyst resection 3. Colon resection for diverticulitis 4. Colostomy placement 5. Prior history of diverting colostomy. 6. Cataract surgery. MEDICATIONS 1. Clonazepam 0.5 mg b.i.d. 2. Clonidine 2 mg a day. 3. DuoNeb q.i.d. 4. Coreg 12.5 mg b.i.d. 5. Symbicort 160/4.5, two puffs b.i.d. 6. Protonix 40 mg. FAMILY HISTORY Include asbestosis related disease in his father. One brother had mesothelioma. One sister, diabetes. HABITS The patient is a nonsmoker. No alcohol use. REVIEW OF SYSTEMS The patient has been overweight. He has dizziness, postnasal drip, cough, wheezing, epigastric distress. He has leg swelling. No calf muscle pains. He has urinary frequency and has had no significant GI symptoms except history of GI bleed. PHYSICAL EXAMINATION This elderly man, obese and pale, in no distress. VITAL SIGNS: Blood pressure 105/70, pulse 100, respiratory rate 22, temperature 98.2. HEENT: Head normocephalic. Pupils reactive. Tongue moist. Throat is injected. Nasal mucosa erythematous. Neck: No bruits or thyroid enlargement or lymphadenopathy. Chest: Distant breath sounds with wheezes bilaterally prolonged expirations with crackles at both lung bases, moreso on the right side. Heart: Heart sounds are irregular, S1-S2 no murmur. Abdomen: Soft, obese without masses, no organomegaly, tenderness. Bowel sounds are active. Extremities: Mild varicosities, edema 2+. Decreased pulses. Neurologic: Reflexes are 1+ with no gross motor deficits. Cranial nerves grossly intact. Rectal: Deferred. Skin: No lesions. IMPRESSION: 1. Bibasilar pulmonary infiltrates with atelectasis and pleural effusions. 2. Deconditioning. 3. Basilar pneumonia, resolving with sepsis. 4. Exogenous obesity with possible sleep apnea. 5. Hypertension 6. Congestive heart failure. 7. Coronary artery disease with a history of [place]. PLAN: The patient has been placed on O2 at 2.5 liters. He will be given incentive spirometry to use every two hours. Nebulized Albuterol and atrovent solution given q.i.d. EZ pap with nebulizer q.i.d., Mucomyst solution 2 cc, 20% every 8 hours. Follow up chest x-ray to be obtained as well. The patient will be ambulated with the help of physiotherapy and bedside pulmonary function study to be done when he is clinically stable. Thank you Dr. Hoskins for this consultation. MD CONOR Cherry/KINA /11:04 PM /5:21 AM
[2016-11-22] MEDS: INSULIN NovoLIN REGULAR SUPPLEMENTAL SCALE SQ SCH ×4 (06:47→21:00)
[2016-11-22 08:00] VITALS: BP 129/65; PULSE 75; PULSE 78; RESP 18; TEMP 97.6; O2SAT 100
[2016-11-22] MEDS: DOCUSATE SODIUM 100 MG CAP PO SCH ×2 (09:00→21:00)
[2016-11-22] MEDS: SODIUM CHLORIDE 0.9% FLUSH 5 ML FLUSH IVF SCH (09:00)
[2016-11-22] MEDS: SODIUM CHLORIDE 0.9% FLUSH 5 ML FLUSH IV FLUSH SCH ×2 (09:44→21:00)
[2016-11-22] MEDS: PANTOPRAZOLE SODIUM 40 MG VIAL IV SCH (09:44)
[2016-11-22] MEDS: LISINOPRIL 5 MG TAB PO SCH (09:44)
[2016-11-22] MEDS: CALCIUM/VITAMIN D 250 MG/125 U TAB PO SCH ×2 (09:44→21:58)
[2016-11-22] MEDS: AMIODARONE 200 MG TAB PO SCH (09:44)
[2016-11-22] MEDS: POTASSIUM CHLORIDE 20 MEQ CONTROLLED RELEASE TAB PO SCH (09:44)
[2016-11-22] MEDS: ESCITALOPRAM OXALATE 10 MG TAB PO SCH (09:44)
[2016-11-22] MEDS: MULTIVITAMINS/MINERALS THERAPEUTIC TAB PO SCH (09:44)
[2016-11-22] MEDS: HYDROCORTISONE SOD SUCCINATE 100 MG VIAL IV PUSH SCH ×2 (09:45→21:58)
[2016-11-22] MEDS: ARTIFICIAL TEARS OPTH SOLN 15 ML BTL EACH EYE SCH ×3 (09:45→16:10)
[2016-11-22] MEDS: BUDESONIDE-FORMOTEROL 160/4.5 MCG INHALER INH SCH ×2 (09:46→21:59)
[2016-11-22 10:15] VITALS: O2SAT 98
[2016-11-22] MEDS: RESP: ACETYLCYSTEINE 10% 30 ML NEB NEB SCH ×4 (10:15→21:23)
[2016-11-22] MEDS: VANCOMYCIN INJ 1,600 MG in SODIUM CHLORID 0.9% 500 ML INJ 500 ML IV SCH (11:35)
[2016-11-22] MEDS ORDERED: PHENOL 1.4% SOLN 180 ML BTL OROPHARYNG PRN (11:45)
[2016-11-22] MEDS ORDERED: ALPRAZolam 0.25 MG TAB PO PRN (11:45)
--- NOTE | 2016-11-22 11:50 | HHI.PR ---
Subjective Remarks still with some sob. complaining of anxiety. has some sore throat. no fever. on oxygen via [place]. d/w the RN. Objective Vitals Vital Signs Date Time Temp Pulse Resp B/P Pulse Ox O2 Delivery O2 Flow Rate FiO2 11/22/16 09:25 Nasal Cannula 2.00 11/22/16 08:00 97.6 78 18 129/65 100 11/22/16 04:00 98.2 84 14 136/72 98 11/22/16 00:00 97.7 80 18 118/59 99 11/21/16 20:00 84 11/21/16 20:00 98.1 87 16 105/54 97 11/21/16 20:00 Nasal Cannula 2.00 11/21/16 19:47 94 Nasal Cannula 3.00 11/21/16 16:05 98.1 87 20 123/59 97 11/21/16 12:05 98.9 80 22 116/59 98 I/O 11/21/16 11/21/16 11/21/16 11/22/16 11/22/16 11/22/16 07:00 15:00 23:00 07:00 15:00 23:00 Intake Total 100 ml 284 ml 240 ml 240 ml Output Total 300 ml 800 ml 0 ml 300 ml Balance -200 ml -516 ml 240 ml -60 ml Intake Oral 100 ml 280 ml 240 ml 240 ml IV Total 4 ml Output Urine Total 300 ml 800 ml 0 ml 300 ml # Bowel Movements 0 2 0 0 Result Diagram: 11/19/16 0630 11/21/16 0527 Imaging Last Impressions Chest X-Ray 11/16/16 0600 Signed Impressions: Service Date/Time: Wednesday, November 16, 2016 03:33 - CONCLUSION: Increasing consolidation and bilateral effusions are suspected. Loc Campbell MD Abdomen/Pelvis CT 11/14/16 0000 Signed Impressions: Service Date/Time: Monday, November 14, 2016 21:20 - CONCLUSION: 1. Contracted gallbladder with calcified gallstones again noted. 2. Multiple anterior abdominal hernias again noted. 3. Nonspecific, nonobstructive bowel gas. 4. Mild consolidation in the lung bases. Yohan Vera MD CT Angiography 11/13/16 0000 Signed Impressions: Service Date/Time: Power, November 13, 2016 16:43 - CONCLUSION: 1. No pulmonary embolus. 2. Emphysematous change in the upper lungs and consolidation or atelectasis in the lower lungs. 3. 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 This finding is unchanged. 4. Multiple compression fractures in the thoracic spine. Salvatore Goddard MD Objective Remarks GENERAL: with some sob and wheezing HEENT; no pharyngeal exudate CARDIOVASCULAR: Regular rate and irregular rhythm without murmurs, gallops, or rubs. RESPIRATORY: bilateral wheezing and prolonged expiration. GASTROINTESTINAL: Abdomen soft, non-tender, nondistended. Normal, active bowel sounds MUSCULOSKELETAL: Extremities without clubbing, cyanosis, or edema. NEURO: Alert & Oriented x4 to person, place, time, situation. Moves all ext x4 Procedures central line placement Medications and IVs Current Medications Norepinephrine Bitartrate (Levophed-Dextrose Drip) 250 ml @ 0 mls/hr TITRATE IV Last administered on 11/15/16 01:13; Start 11/13/16 at 12:15; Stop 11/17/16 at 08:11; Status DC Terbutaline Sulfate 1 mg 1 mg UNSCH PRN SQ For Extravasation; Start 11/13/16 at 12:15 Dopamine HCl/ Dextrose (DOPamine INJ PREMIX) 500 ml @ 0 mls/hr TITRATE IV ; Start 11/13/16 at 12:15; Stop 11/15/16 at 14:05; Status DC Terbutaline Sulfate 1 mg 1 mg UNSCH PRN SQ For Extravasation; Start 11/13/16 at 12:15; Status Cancel Vancomycin HCl 1000 mg/Sodium Chloride 250 ml @ 250 mls/hr ONCE ONCE IV ; Start 11/13/16 at 12:45; Stop 11/13/16 at 13:44; Status DC Piperacillin Sod/ Tazobactam Sod 50 ml @ 100 mls/hr ONCE ONCE IV Last administered on 11/13/16 13:13; Start 11/13/16 at 12:45; Stop 11/13/16 at 13:14 ; Status DC Sodium Chloride 1,000 ml @ 999 mls/hr BOLUS ONCE IV Last administered on 11/13 14:04; Start 11/13/16 at 13:15; Stop 11/13/16 at 14:15; Status DC Sodium Chloride (NS 1000 ml Inj) 1,000 ml @ 84 mls/hr [id number] IV Last administered on 11/15/16 01:13; Start 11/13/16 at 13:13; Stop 11/15/16 at 14:00 ; Status DC IV Flush (NS Flush) 2 ml UNSCH PRN IV FLUSH FLUSH AFTER USING IV ACCESS Last administered on 11/15/16 08:12; Start 11/13/16 at 13:15 IV Flush (NS Flush) 2 ml BID IV FLUSH ; Start 11/13/16 at 21:00; Stop 11/13/16 at 21:00; Status DC Acetaminophen (Tylenol) 650 mg Q6H PRN PO FEVER >101F; Start 11/13/16 at 13:15 Acetaminophen/ Hydrocodone Bitart ([place] 5-325 Mg) 1 tab Q4H PRN PO PAIN SCALE 1 TO 5 Last administered on 11/13/16 16:00; Start 11/13/16 at 13:15 Morphine Sulfate (Morphine Inj) 2 mg Q2H PRN IV PAIN SCALE 6 TO 10 Last administered on 11/16/16 06:54; Start 11/13/16 at 13:15 Pantoprazole Sodium (Protonix Inj) 40 mg DAILY IV Last administered on 09:44; Start 11/14/16 at 09:00 Artificial Tears (Tears Naturale Opth Soln) 1 drop TID EACH EYE Last administered on 11/22/16 09:45; Start 11/13/16 at 18:00 Ondansetron HCl (Zofran Inj) 4 mg Q6H PRN IV NAUSEA OR VOMITING; Start at 13:15 Docusate Sodium (Colace) 100 mg BID PO Last administered on 11/19/16 09:13; Start 11/13/16 at 21:00 Sennosides (Senokot) 17.2 mg Q12H PRN PO CONSTIPATION; Start 11/13/16 at 13:15 Albuterol/ Ipratropium (Duoneb Neb) 1 ampule Q6HR NEB INH Last administered on 11/17/16 15:46; Start 11/13/16 at 16:00; Stop 11/17/16 at 16:00; Status DC Albuterol Sulfate (Albuterol Neb) 2.5 mg Q2HR NEB PRN INH SOB/WHEEZING Last administered on 11/21/16 12:59; Start 11/13/16 at 13:15 Miscellaneous Information 1 Q361D XX ; Start 11/13/16 at 13:15; Stop 11/13/16 at 16:59; Status DC Chlorhexidine Gluconate (Chlorhexidine 2% Cloth) 3 pack Taper DAILY@04 TOP ; Start 11/14/16 at 04:00; Stop 11/14/16 at 04:00; Status DC Chlorhexidine Gluconate (Chlorhexidine 2% Cloth) 3 pack UNSCH PRN TOP HYGIENIC CARE; Start 11/13/16 at 13:15; Stop 11/13/16 at 16:59; Status DC Dextrose (D50w (Vial) Inj) 25 ml UNSCH PRN IV PUSH HYPOGLYCEMIA-SEE COMMENTS; Start 11/13/16 at 13:15 Glucagon (Glucagon Inj) 1 mg UNSCH PRN OTHER HYPOGLYCEMIA-SEE COMMENTS; Start 11/13/16 at 13:15 Insulin Human Regular (NovoLIN R SUPPLEMENTAL SCALE) 1 Q6HR SQ Last administered on 11/15/16 11:36; Start 11/13/16 at 18:00; Stop 11/15/16 at 14:01 ; Status DC Amiodarone HCl (Cordarone) 200 mg DAILY PO Last administered on 11/22/16 09:44 ; Start 11/14/16 at 09:00 Atorvastatin Calcium (Lipitor) 10 mg HS PO Last administered on 11/21/16 21:00 ; Start 11/13/16 at 21:00 Budesonide/ Formoterol Fumarate (Symbicort 160-4.5 Inh) 2 puff Q12HR INH Last administered on 11/22/16 09:46; Start 11/13/16 at 21:00 Escitalopram Oxalate (Lexapro) 10 mg DAILY PO Last administered on 11/22/16 09 :44; Start 11/14/16 at 09:00 Multivitamins/ Minerals Therapeutic (Theragran M Tab) 1 tab DAILY PO Last administered on 11/22/16 09:44; Start 11/14/16 at 09:00 Tamsulosin HCl (Flomax) 0.4 mg HS PO ; Start 11/13/16 at 21:00; Status Hold Calcium/Vitamin D 2 mg 2 mg BID PO Last administered on 11/13/16 20:50; Start 11/13/16 at 21:00; Stop 11/14/16 at 09:09; Status DC Magnesium Sulfate/ Dextrose (Magnesium Sulfate 1 Gm Premix) 100 ml @ 100 mls/ hr Q1H IV Last administered on 11/13/16 14:30; Start 11/13/16 at 13:30; Stop 11/13/16 at 15:29; Status DC Dextrose 25 ml 25 ml ONCE ONCE IV PUSH Last administered on 11/13/16 13:58; Start 11/13/16 at 13:45; Stop 11/13/16 at 13:46; Status DC Dextrose/Sodium Chloride 1,000 ml @ 100 mls/hr Q10H IV ; Start 11/13/16 at 13: 45; Stop 11/13/16 at 13:50; Status DC Vasopressin 40 units/Dextrose 100 ml @ 1.5 mls/hr Q24H IV Last administered on 11/13/16 20:49; Start 11/13/16 at 16:00; Stop 11/17/16 at 08:12; Status DC Sodium Chloride (NS 1000 ml Inj) 1,000 ml @ 999 mls/hr BOLUS ONCE IV Last administered on 11/13/16 16:00; Start 11/13/16 at 16:00; Stop 11/13/16 at 17:00 ; Status DC Hydrocortisone Sodium Succinate 100 mg 100 mg Q8H IV PUSH Last administered on 11/15/16 08:11; Start 11/13/16 at 16:00; Stop 11/15/16 at 14:01; Status DC Sodium Phosphate 30 mmol/Sodium Chloride 260 ml @ 43.333 mls/ hr ONCE ONCE IV Last administered on 11/13/16 15:45; Start 11/13/16 at 15:45; Stop 11/13/16 at 21:44; Status DC Magnesium Sulfate/ Dextrose 100 ml @ 100 mls/hr Q1H IV Last administered on 17:00; Start 11/13/16 at 16:00; Stop 11/13/16 at 17:59; Status DC Pharmacy Profile Note 0 ml @ 0 mls/hr UNSCH OTHER ; Start 11/13/16 at 15:45 Potassium Chloride 100 ml @ 50 mls/hr Q2H PRN IV For Potassium 2.8 - 3.2 mEq/ L Last administered on 11/15/16t 08:11; Start 11/13/16 at 16:00; Stop 11/21/16 at 07:53; Status DC Potassium Chloride 100 ml @ 50 mls/hr Q2H PRN IV For Potassium 2.8 - 3.2 mEq/L ; Start 11/13/16 at 16:00; Stop 11/21/16 at 07:53; Status DC Potassium Chloride 100 ml @ 25 mls/hr UNSCH PRN IV For Potassium 3.3 - 3.5 mEq /L; Start 11/13/16 at 16:00; Stop 11/21/16 at 07:53; Status DC Potassium Chloride 100 ml @ 50 mls/hr Q2H PRN IV For Potassium 3.3 - 3.5 mEq/L ; Start 11/13/16 at 16:00; Stop 11/21/16 at 07:53; Status DC Magnesium Sulfate/ Sodium Chloride (Magnesium Sulfate Inj/NS Inj) 100 ml @ 50 mls/hr UNSCH PRN IV For Magnesium 0.9 - 1.1 mg/dL; Start 11/13/16 at 16:00; Stop 11/21/16 at 07:53; Status DC Magnesium Oxide 800 mg 800 mg UNSCH PRN PO For Magnesium 1.2 - 1.6 mg/dL; Start 11/13/16 at 16:00; Stop 11/21/16 at 07:53; Status DC Magnesium Sulfate/ Sodium Chloride (Magnesium Sulfate Inj/NS Inj) 100 ml @ 50 mls/hr UNSCH PRN IV For Magnesium 1.2 - 1.6 mg/dL; Start 11/13/16 at 16:00; Stop 11/21/16 at 07:53; Status DC Potassium Phosphate 2000 mg 2,000 mg Q4H PRN PO For Phosphorus < 2.5 mg/dL; Start 11/13/16 at 16:00; Stop 11/21/16 at 07:53; Status DC Sodium Phosphate/ Sodium Chloride (Sodium Phosphate Inj/NS 250 ml Inj) 250 ml @ 42 mls/hr UNSCH PRN IV For Phosphorus < 2.5 mg/dL Last administered on 06:39; Start 11/13/16 at 16:00; Stop 11/21/16 at 07:53; Status DC Potassium Phosphate 2000 mg 2,000 mg UNSCH PRN PO/TUBE SEE LABEL COMMENTS; Start 11/13/16 at 15:52; Stop 11/21/16 at 07:53; Status DC Potassium Phosphate/Sodium Chloride (Potassium Phosphate Inj/NS 250 ml Inj) 260 ml @ 42 mls/hr UNSCH PRN IV SEE LABEL COMMENTS Last administered on 11/20/16 00:47; Start 11/13/16 at 15:52; Stop 11/21/16 at 07:53; Status DC IV Flush (NS Flush) 2 ml UNSCH PRN IV FLUSH FLUSH AFTER USING IV ACCESS; Start 11/13/16 at 16:30; Stop 11/13/16 at 16:54; Status DC IV Flush 2 ml 2 ml BID IV FLUSH Last administered on 11/22/16 09:44; Start at 21:00 Piperacillin Sod/ Tazobactam Sod 100 ml @ 200 mls/hr Q6H IV Last administered on 11/14/16 08:38; Start 11/13/16 at 20:00; Stop 11/14/16 at 13:39; Status DC Azithromycin/ Sodium Chloride (Zithromax Inj/ NS 250 ml Inj) 250 ml @ 250 mls/ hr Q24H IV Last administered on 11/14/16 18:21; Start 11/13/16 at 18:00; Stop 11/15/16 at 08:43; Status DC Miscellaneous Information 1 Q361D XX ; Start 11/13/16 at 16:30 Chlorhexidine Gluconate (Chlorhexidine 2% Cloth) Taper DAILY@04 TOP Last administered on 11/19/16 04:00; Start 11/14/16 at 04:00; Stop 11/10/17 at 03:59 Chlorhexidine Gluconate 3 pack 3 pack UNSCH PRN TOP HYGIENIC CARE; Start at 16:30 Pharmacy Profile Note (Coumadin Consult Pharmacy) 0 ml @ 0 mls/hr UNSCH OTHER ; Start 11/13/16 at 16:30 Iohexol (Omnipaque 350 Inj) 75 ml STK-MED ONCE IV Last administered on 17:00; Start 11/13/16 at 17:00; Stop 11/13/16 at 17:01; Status DC Warfarin Sodium 1 mg 1 mg DAILY@16 PO Last administered on 11/13/16 18:00; Start 11/13/16 at 18:00; Stop 11/14/16 at 15:07; Status DC Vancomycin HCl 1000 mg/Sodium Chloride 250 ml @ 250 mls/hr ONCE ONCE IV Last administered on 11/13/16 21:40; Start 11/13/16 at 21:30; Stop 11/13/16 at 22:29 ; Status DC Vancomycin HCl/ Sodium Chloride (Vancomycin Inj/ NS 250 ml Inj) 258 ml @ 250 mls/hr ONCE ONCE IV Last administered on 11/14/16 00:40; Start 11/14/16 at 00 :00; Stop 11/14/16 at 01:01; Status DC Calcium/Vitamin D 500 mg 500 mg BID PO Last administered on 11/22/16 09:44; Start 11/14/16 at 21:00 Vancomycin HCl/ Sodium Chloride (Vancomycin Inj/ NS 500 ml Inj) 517.5 ml @ 258.75 mls/ hr Q24H IV Last administered on 11/21/16 14:54; Start 11/14/16 at 12:00; Stop 11/21/16 at 18:51; Status DC Miscellaneous Information SPECIFIC LAB TO BE [facility]... ONCE ONCE XX Last administered on 11/17/16 11:45; Start 11/17/16 at 11:45; Stop 11/17/16 at 11:46 ; Status DC Miscellaneous Medication (ASP Crit: Doc ESBL, MDR A baumannii or P aer) 1 UNSCH X1 PRN XX PHARMACY DOCUMENTATION; Start 11/14/16 at 13:30; Stop 11/15/16 at 13: 29; Status DC Miscellaneous Medication 1 1 UNSCH X1 PRN XX PHARMACY DOCUMENTATION; Start at 13:30; Stop 11/15/16 at 13:29; Status DC Meropenem/Sodium Chloride (Merrem Inj/NS Inj) 100 ml @ 200 mls/hr Q8H IV Last administered on 11/18/16 05:56; Start 11/14/16 at 14:00; Stop 11/18/16 at 09:45 ; Status DC IV Flush (NS Flush) DAILY IVF Last administered on 11/19/16 11:07; Start at 09:00 IV Flush (NS Flush) UNSCH PRN IVF SEE PROTOCOL; Start 11/14/16 at 14:45 Diatrizoate Meglum/ Diatrizoate Sod (Md Kevin Moreno) 18 ml ONCE ONCE PO Last administered on 11/14/16 16:24; Start 11/14/16 at 14:45; Stop 11/14/16 at 14:46; Status DC Warfarin Sodium (Coumadin) 2 mg DAILY@16 PO Last administered on 11/15/16 17: 24; Start 11/14/16 at 16:00; Stop 11/16/16 at 08:33; Status DC Iohexol (Omnipaque 350 Inj) 93 ml STK-MED ONCE IV Last administered on 21:25; Start 11/14/16 at 21:25; Stop 11/14/16 at 21:26; Status DC Azithromycin (Zithromax) 500 mg DAILY PO Last administered on 11/16/16 08:38; Start 11/15/16 at 09:00; Stop 11/17/16 at 09:26; Status DC Hydrocortisone Sodium Succinate (SoluCORTEF INJ) 50 mg Q8H IV PUSH Last administered on 11/17/16 00:00; Start 11/15/16 at 16:00; Stop 11/17/16 at 08:12 ; Status DC Insulin Human Regular (NovoLIN R SUPPLEMENTAL SCALE) 1 ACHS SQ Last administered on 11/19/16 17:33; Start 11/15/16 at 16:00 Warfarin Sodium (Coumadin) 1.5 mg DAILY@16 PO Last administered on 11/21/16 16 :32; Start 11/16/16 at 16:00; Stop 11/22/16 at 10:17; Status DC Bumetanide (Bumex Inj) 1 mg ONCE ONCE IV PUSH Last administered on 11/16/16 09:17; Start 11/16/16 at 09:00; Stop 11/16/16 at 09:12; Status DC Hydrocortisone Sodium Succinate (SoluCORTEF INJ) 50 mg Q12H IV PUSH Last administered on 11/22/16 09:45; Start 11/17/16 at 21:00 Bumetanide (Bumex Inj) 1 mg ONCE ONCE IV PUSH Last administered on 11/17/16 09:46; Start 11/17/16 at 09:15; Stop 11/17/16 at 09:26; Status DC Bumetanide (Bumex Inj) 1 mg ONCE ONCE IV PUSH Last administered on 11/18/16 10:24; Start 11/18/16 at 10:00; Stop 11/18/16 at 10:16; Status DC Lisinopril (Prinivil) 2.5 mg DAILY PO Last administered on 11/22/16 09:44; Start 11/18/16 at 10:00 Miscellaneous (Pill Splitter) 1 ea UNSCH PRN OTHER SEE LABEL COMMENTS Last administered on 11/18/16 16:45; Start 11/18/16 at 09:30 Miscellaneous Medication (ASP Crit: Doc ESBL, MDR A baumannii or P aer) 1 UNSCH X1 PRN XX PHARMACY DOCUMENTATION; Start 11/18/16 at 09:45; Stop 11/19/16 at 09: 44; Status DC Miscellaneous Medication 1 1 UNSCH X1 PRN XX PHARMACY DOCUMENTATION; Start at 09:45; Stop 11/19/16 at 09:44; Status DC Ertapenem 1000 mg/ Sodium Chloride 100 ml @ 200 mls/hr Q24H IV ; Start at 11:00; Stop 11/19/16 at 03:21; Status DC Ertapenem/Sodium Chloride (INVanz INJ/NS Inj) 100 ml @ 200 mls/hr Q24H IV Last administered on 11/22/16 04:00; Start 11/19/16 at 04:00 Warfarin Sodium (Coumadin) 0.5 mg ONCE PO Last administered on 11/19/16 17:24 ; Start 11/19/16 at 16:00; Stop 11/19/16 at 21:00; Status DC Warfarin Sodium (Coumadin) 0.5 mg ONCE PO Last administered on 11/20/16 16:34 ; Start 11/20/16 at 16:00; Stop 11/20/16 at 21:00; Status DC Miscellaneous Information SPECIFIC LAB TO BE DRAWN:VANCOMYCIN TROUGH DATE TO... ONCE ONCE XX Last administered on 11/21/16 14:54; Start 11/21/16 at 11:45; Stop 11/21/16 at 11:46; Status DC Potassium Chloride (KCl) 40 meq ONCE ONCE PO Last administered on 11/20/16 18 :45; Start 11/20/16 at 18:00; Stop 11/20/16 at 18:21; Status DC Potassium Chloride (KCl) 20 meq DAILY PO Last administered on 11/22/16 09:44; Start 11/21/16 at 09:00 Albuterol/ Ipratropium (Duoneb Neb) 1 ampule Q4HR NEB NEB ; Start 11/21/16 at 12:00; Stop 11/21/16 at 12:36; Status DC Acetylcysteine (Mucomyst 10% Neb) 2 ml Q8HR NEB NEB Last administered on 10:15; Start 11/21/16 at 16:00 Albuterol/ Ipratropium 1 ampule 1 ampule Q6HR NEB NEB Last administered on 10:15; Start 11/21/16 at 16:00 Vancomycin HCl/ Sodium Chloride (Vancomycin Inj/ NS 500 ml Inj) 516 ml @ 258.75 mls/ hr Q24H IV ; Start 11/22/16 at 12:00 Warfarin Sodium (Coumadin) 1 mg ONCE ONCE PO ; Start 11/22/16 at 16:00; Stop at 16:01 Warfarin Sodium (Coumadin) 1.5 mg DAILY@16 PO ; Start 11/23/16 at 16:00 Miscellaneous Information SPECIFIC LAB TO BE ... ONCE ONCE XX ; Start at 11:45; Stop 11/25/16 at 11:46 Line: Central Venous Catheter Side: Right Location: Femoral A/P Assessment and Plan A/P Acute hypoxemic respiratory failure COPD Possible HCAP Continue with oxygen keep sat >92% Bronchodilator therapy ; scheduled and as needed NIPPV PRN for resp distress Symbicort twice daily pulmonary consult appreciated. Anxiety depression- history of Panic attacks On Escitalopram 10 mg by mouth daily for depression. will add xanax as needed Acetaminophen for fever [place]/morphine for pain management will consider psychiatry consult Chronic atrial fibrillation Coronary artery disease status post [place] 1987 Cardiomyopathy Congestive heart failure/systolic EF 35-40% 10/16 Hypertension Dyslipidemia Mildly aortic stenosis Severe septic shock 2-D echocardiogram 10/16 revealed EF 35-40% regional hypokinesis. Mild aortic stenosis Echo from 11/14:EF 20% to 25%. Diffuse hypokinesis. Grade 1 diastolic dysfunction. Lisinopril 2.5mg daily Solu-Cortef 50 mg Q12- will switch to po steroids soon. as OP. on Chronic prednisone use 20 milligrams daily.as OP Coreg 6.25 mg by mouth twice a day on hold Continue amiodarone 200 mg by mouth daily for A. fib. Continue atorvastatin 10 mg daily for dyslipidemia Possible healthcare associated pneumonia Continue abx per ID- on Vancomycin and Invanz Pertinent cultures 11/13 - blood cultures : Escherichia coli, Group D Enterococcus, GNR Negative urine Legionella pneumococcal antigens and influenza History of GI bleed Morbid obesity Cholelithiasis Chronic abdominal pain Chronic constipation Diverticulosis On PO heart healthy diet Protonix for GI prophylaxis. Colace/as needed Senokot for bowel regimen EGD from last admission - gastritis bx from antrum, normal endoscopy otherwise , retroflexed revealed no abnormalities, few diverticulosis in the sigmoid, normal surgical anastomosis, no active bleed, small polyp in the ascending colon removed by snare, the colon mucosa was otherwise normal, retroflexed views revealed internal hemorrhoids, small internal hemorrhoids, revealed no abnormalities of the rectum. BPH Hypogonadism Chronic kidney disease stage III HYpokalemia Monitor renal function and electrolytes periodically. Normocytic anemia history of ITP Chronic VKA use At home on Coumadin 2 mg by mouth daily. Monitor CBC/CMP daily.. Daily INRs with pharmacy to manage. Chronically prednisone 20 mg daily for ITP currently on Solucortef 50 mg q 12 stress dose- since 11/17- gradually transition to above po dose gradually Chronic compression fractures of thoracic vertebrae Chronic low back pain Deconditioning- baseline gets around with a walker continue with pain control and PT. DVT prophylaxis with coumadin. David Partt MD Nov 22, 2016 11:50
[2016-11-22] MEDS: RESP: ALBUTEROL 2.5 MG/3 ML NEB (PRN) INH ×3 (13:39→18:16)
[2016-11-22] MEDS ORDERED: WARFARIN SOD 1 MG TAB PO ONE (16:00)
[2016-11-22 17:14] VITALS: O2SAT 96
[2016-11-22] MEDS ORDERED: LORazepam 2 MG/ML VIAL IV ONE (18:45)
[2016-11-22] MEDS ORDERED: FUROSEMIDE 20 MG/2 ML VIAL IV ONE (18:45)
[2016-11-22 20:00] VITALS: BP 77/46; PULSE 97; PULSE 98; RESP 22; TEMP 97.9; O2SAT 96
[2016-11-22] MEDS: ATORVASTATIN 10 MG TAB PO SCH (21:58)
[2016-11-23] VITALS (7 sets, daily range): BP systolic 109–135; BP diastolic 55–70; PULSE 77–106; RESP 18–20; TEMP 97.5–98.5; O2SAT 93–98
[2016-11-23] MEDS: CHLORHEXIDINE GLUCONATE 2 % 1 PACK (2 CLOTHS) TOP SCH (04:00)
[2016-11-23] MEDS: RESP: ALBUTEROL 2.5 MG/IPRATROPIUM 0.5 MG NEB (SCH) NEB ×2 (04:00→19:22)
[2016-11-23] MEDS: ERTAPENEM INJ 1,000 MG in SODIUM CHLORIDE 0.9% INJ 100 ML IV SCH (04:33)
[2016-11-23] MEDS: INSULIN NovoLIN REGULAR SUPPLEMENTAL SCALE SQ SCH ×4 (06:09→21:00)
[2016-11-23 07:21] LABS: INTERNATIONAL NORMALIZED RATIO 2.5 RATIO; PROTHROMBIN TIME - PATIENT 28.7 SEC (9.8-11.6)
[2016-11-23] MEDS: RESP: ACETYLCYSTEINE 10% 30 ML NEB NEB SCH (08:00)
[2016-11-23] MEDS: ARTIFICIAL TEARS OPTH SOLN 15 ML BTL EACH EYE SCH ×3 (09:00→17:21)
[2016-11-23] MEDS: SODIUM CHLORIDE 0.9% FLUSH 5 ML FLUSH IVF SCH (09:00)
[2016-11-23] MEDS: BUDESONIDE-FORMOTEROL 160/4.5 MCG INHALER INH SCH ×2 (09:00→21:00)
[2016-11-23] MEDS: DOCUSATE SODIUM 100 MG CAP PO SCH ×2 (09:00→22:42)
[2016-11-23] MEDS: SODIUM CHLORIDE 0.9% FLUSH 5 ML FLUSH IV FLUSH SCH ×2 (09:00→21:00)
[2016-11-23] MEDS: PANTOPRAZOLE SODIUM 40 MG VIAL IV SCH (10:21)
[2016-11-23] MEDS: MULTIVITAMINS/MINERALS THERAPEUTIC TAB PO SCH (10:21)
[2016-11-23] MEDS: HYDROCORTISONE SOD SUCCINATE 100 MG VIAL IV PUSH SCH (10:21)
[2016-11-23] MEDS: ESCITALOPRAM OXALATE 10 MG TAB PO SCH (10:22)
[2016-11-23] MEDS: AMIODARONE 200 MG TAB PO SCH (10:22)
[2016-11-23] MEDS: POTASSIUM CHLORIDE 20 MEQ CONTROLLED RELEASE TAB PO SCH (10:22)
[2016-11-23] MEDS: CALCIUM/VITAMIN D 250 MG/125 U TAB PO SCH ×2 (10:22→22:42)
[2016-11-23] MEDS: LISINOPRIL 5 MG TAB PO SCH (10:22)
--- NOTE | 2016-11-23 11:52 | HHI.PR ---
Subjective Remarks looks more comfortable today. however still with some sob. says that 'xanax' helps him with the anxiety. afebrile. Objective Vitals Vital Signs Date Time Temp Pulse Resp B/P Pulse Ox O2 Delivery O2 Flow Rate FiO2 11/23/16 08:00 98.1 82 20 135/64 98 11/23/16 04:37 98.3 85 18 128/65 97 Manual Cuff/Auscultation 11/23/16 00:20 98.4 106 20 109/66 97 11/23/16 00:00 97 Nasal Cannula 2.00 11/22/16 20:00 97 11/22/16 20:00 Nasal Cannula 2.00 11/22/16 20:00 97.9 98 22 77/46 96 11/22/16 17:14 96 Nasal Cannula 3.00 I/O 11/22/16 11/22/16 11/22/16 11/23/16 11/23/16 11/23/16 07:00 15:00 23:00 07:00 15:00 23:00 Intake Total 240 ml 862 ml 120 ml Output Total 300 ml 300 ml 200 ml Balance -60 ml 562 ml -80 ml Intake Oral 240 ml 600 ml 120 ml IV Total 262 ml Output Urine Total 300 ml 300 ml 200 ml # Bowel Movements 0 1 0 Result Diagram: 11/19/16 0630 11/23/16 06 Imaging Last Impressions Chest X-Ray 11/16/16 0600 Signed Impressions: Service Date/Time: Wednesday, November 16, 2016 03:33 - CONCLUSION: Increasing consolidation and bilateral effusions are suspected. Loc Campbell MD Abdomen/Pelvis CT 11/14/16 0000 Signed Impressions: Service Date/Time: Monday, November 14, 2016 21:20 - CONCLUSION: 1. Contracted gallbladder with calcified gallstones again noted. 2. Multiple anterior abdominal hernias again noted. 3. Nonspecific, nonobstructive bowel gas. 4. Mild consolidation in the lung bases. Yohan Vera MD CT Angiography 11/13/16 0000 Signed Impressions: Service Date/Time: Sunday, November 13, 2016 16:43 - CONCLUSION: 1. No pulmonary embolus. 2. Emphysematous change in the upper lungs and consolidation or atelectasis in the lower lungs. 3. 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 This finding is unchanged. 4. Multiple compression fractures in the thoracic spine. Salvatore Goddard MD Objective Remarks GENERAL: with some sob and wheezing HEENT; no pharyngeal exudate CARDIOVASCULAR: Regular rate and irregular rhythm without murmurs, gallops, or rubs. RESPIRATORY: bilateral wheezing and prolonged expiration. GASTROINTESTINAL: Abdomen soft, non-tender, nondistended. Normal, active bowel sounds MUSCULOSKELETAL: Extremities without clubbing, cyanosis, or edema. NEURO: Alert & Oriented x4 to person, place, time, situation. Moves all ext x4 Procedures central line placement Medications and IVs Current Medications Norepinephrine Bitartrate (Levophed-Dextrose Drip) 250 ml @ 0 mls/hr TITRATE IV Last administered on 11/15/16 01:13; Start 11/13/16 at 12:15; Stop 11/17/16 at 08:11; Status DC Terbutaline Sulfate 1 mg 1 mg UNSCH PRN SQ For Extravasation; Start 11/13/16 at 12:15 Dopamine HCl/ Dextrose (DOPamine INJ PREMIX) 500 ml @ 0 mls/hr TITRATE IV ; Start 11/13/16 at 12:15; Stop 11/15/16 at 14:05; Status DC Terbutaline Sulfate 1 mg 1 mg UNSCH PRN SQ For Extravasation; Start 11/13/16 at 12:15; Status Cancel Vancomycin HCl 1000 mg/Sodium Chloride 250 ml @ 250 mls/hr ONCE ONCE IV ; Start 11/13/16 at 12:45; Stop 11/13/16 at 13:44; Status DC Piperacillin Sod/ Tazobactam Sod 50 ml @ 100 mls/hr ONCE ONCE IV Last administered on 11/13/16 13:13; Start 11/13/16 at 12:45; Stop 11/13/16 at 13:14 ; Status DC Sodium Chloride 1,000 ml @ 999 mls/hr BOLUS ONCE IV Last administered on 11/13 14:04; Start 11/13/16 at 13:15; Stop 11/13/16 at 14:15; Status DC Sodium Chloride (NS 1000 ml Inj) 1,000 ml @ 84 mls/hr [id number] IV Last administered on 11/15/16 01:13; Start 11/13/16 at 13:13; Stop 11/15/16 at 14:00 ; Status DC IV Flush (NS Flush) 2 ml UNSCH PRN IV FLUSH FLUSH AFTER USING IV ACCESS Last administered on 11/15/16 08:12; Start 11/13/16 at 13:15 IV Flush (NS Flush) 2 ml BID IV FLUSH ; Start 11/13/16 at 21:00; Stop 11/13/16 at 21:00; Status DC Acetaminophen (Tylenol) 650 mg Q6H PRN PO FEVER >101F; Start 11/13/16 at 13:15 Acetaminophen/ Hydrocodone Bitart (Artesian 5-325 Mg) 1 tab Q4H PRN PO PAIN SCALE 1 TO 5 Last administered on 11/13/16 16:00; Start 11/13/16 at 13:15 Morphine Sulfate (Morphine Inj) 2 mg Q2H PRN IV PAIN SCALE 6 TO 10 Last administered on 11/16/16 06:54; Start 11/13/16 at 13:15 Pantoprazole Sodium (Protonix Inj) 40 mg DAILY IV Last administered on 10:21; Start 11/14/16 at 09:00 Artificial Tears (Tears Naturale Opth Soln) 1 drop TID EACH EYE Last administered on 11/23/16 09:00; Start 11/13/16 at 18:00 Ondansetron HCl (Zofran Inj) 4 mg Q6H PRN IV NAUSEA OR VOMITING; Start at 13:15 Docusate Sodium (Colace) 100 mg BID PO Last administered on 11/19/16 09:13; Start 11/13/16 at 21:00 Sennosides (Senokot) 17.2 mg Q12H PRN PO CONSTIPATION; Start 11/13/16 at 13:15 Albuterol/ Ipratropium (Duoneb Neb) 1 ampule Q6HR NEB INH Last administered on 11/17/16 15:46; Start 11/13/16 at 16:00; Stop 11/17/16 at 16:00; Status DC Albuterol Sulfate (Albuterol Neb) 2.5 mg Q2HR NEB PRN INH SOB/WHEEZING Last administered on 11/22/16 18:08; Start 11/13/16 at 13:15 Miscellaneous Information 1 Q361D XX ; Start 11/13/16 at 13:15; Stop 11/13/16 at 16:59; Status DC Chlorhexidine Gluconate (Chlorhexidine 2% Cloth) 3 pack Taper DAILY@04 TOP ; Start 11/14/16 at 04:00; Stop 11/14/16 at 04:00; Status DC Chlorhexidine Gluconate (Chlorhexidine 2% Cloth) 3 pack UNSCH PRN TOP HYGIENIC CARE; Start 11/13/16 at 13:15; Stop 11/13/16 at 16:59; Status DC Dextrose (D50w (Vial) Inj) 25 ml UNSCH PRN IV PUSH HYPOGLYCEMIA-SEE COMMENTS; Start 11/13/16 at 13:15 Glucagon (Glucagon Inj) 1 mg UNSCH PRN OTHER HYPOGLYCEMIA-SEE COMMENTS; Start 11/13/16 at 13:15 Insulin Human Regular (NovoLIN R SUPPLEMENTAL SCALE) 1 Q6HR SQ Last administered on 11/15/16 11:36; Start 11/13/16 at 18:00; Stop 11/15/16 at 14:01 ; Status DC Amiodarone HCl (Cordarone) 200 mg DAILY PO Last administered on 11/23/16 10:22 ; Start 11/14/16 at 09:00 Atorvastatin Calcium (Lipitor) 10 mg HS PO Last administered on 11/22/16 21:58 ; Start 11/13/16 at 21:00 Budesonide/ Formoterol Fumarate (Symbicort 160-4.5 Inh) 2 puff Q12HR INH Last administered on 11/23/16 09:00; Start 11/13/16 at 21:00 Escitalopram Oxalate (Lexapro) 10 mg DAILY PO Last administered on 11/23/16 10 :22; Start 11/14/16 at 09:00 Multivitamins/ Minerals Therapeutic (Theragran M Tab) 1 tab DAILY PO Last administered on 11/23/16 10:21; Start 11/14/16 at 09:00 Tamsulosin HCl (Flomax) 0.4 mg HS PO ; Start 11/13/16 at 21:00; Status Hold Calcium/Vitamin D 2 mg 2 mg BID PO Last administered on 11/13/16 20:50; Start 11/13/16 at 21:00; Stop 11/14/16 at 09:09; Status DC Magnesium Sulfate/ Dextrose (Magnesium Sulfate 1 Gm Premix) 100 ml @ 100 mls/ hr Q1H IV Last administered on 11/13/16 14:30; Start 11/13/16 at 13:30; Stop 11/13/16 at 15:29; Status DC Dextrose 25 ml 25 ml ONCE ONCE IV PUSH Last administered on 11/13/16 13:58; Start 11/13/16 at 13:45; Stop 11/13/16 at 13:46; Status DC Dextrose/Sodium Chloride 1,000 ml @ 100 mls/hr Q10H IV ; Start 11/13/16 at 13: 45; Stop 11/13/16 at 13:50; Status DC Vasopressin 40 units/Dextrose 100 ml @ 1.5 mls/hr Q24H IV Last administered on 11/13/16 20:49; Start 11/13/16 at 16:00; Stop 11/17/16 at 08:12; Status DC Sodium Chloride (NS 1000 ml Inj) 1,000 ml @ 999 mls/hr BOLUS ONCE IV Last administered on 11/13/16 16:00; Start 11/13/16 at 16:00; Stop 11/13/16 at 17:00 ; Status DC Hydrocortisone Sodium Succinate 100 mg 100 mg Q8H IV PUSH Last administered on 11/15/16 08:11; Start 11/13/16 at 16:00; Stop 11/15/16 at 14:01; Status DC Sodium Phosphate 30 mmol/Sodium Chloride 260 ml @ 43.333 mls/ hr ONCE ONCE IV Last administered on 11/13/16 15:45; Start 11/13/16 at 15:45; Stop 11/13/16 at 21:44; Status DC Magnesium Sulfate/ Dextrose 100 ml @ 100 mls/hr Q1H IV Last administered on 17:00; Start 11/13/16 at 16:00; Stop 11/13/16 at 17:59; Status DC Pharmacy Profile Note 0 ml @ 0 mls/hr UNSCH OTHER ; Start 11/13/16 at 15:45 Potassium Chloride 100 ml @ 50 mls/hr Q2H PRN IV For Potassium 2.8 - 3.2 mEq/ L Last administered on 11/15/16 08:11; Start 11/13/16 at 16:00; Stop 11/21/16 at 07:53; Status DC Potassium Chloride 100 ml @ 50 mls/hr Q2H PRN IV For Potassium 2.8 - 3.2 mEq/L ; Start 11/13/16 at 16:00; Stop 11/21/16 at 07:53; Status DC Potassium Chloride 100 ml @ 25 mls/hr UNSCH PRN IV For Potassium 3.3 - 3.5 mEq /L; Start 11/13/16 at 16:00; Stop 11/21/16 at 07:53; Status DC Potassium Chloride 100 ml @ 50 mls/hr Q2H PRN IV For Potassium 3.3 - 3.5 mEq/L ; Start 11/13/16 at 16:00; Stop 11/21/16 at 07:53; Status DC Magnesium Sulfate/ Sodium Chloride (Magnesium Sulfate Inj/NS Inj) 100 ml @ 50 mls/hr UNSCH PRN IV For Magnesium 0.9 - 1.1 mg/dL; Start 11/13/16 at 16:00; Stop 11/21/16 at 07:53; Status DC Magnesium Oxide 800 mg 800 mg UNSCH PRN PO For Magnesium 1.2 - 1.6 mg/dL; Start 11/13/16 at 16:00; Stop 11/21/16 at 07:53; Status DC Magnesium Sulfate/ Sodium Chloride (Magnesium Sulfate Inj/NS Inj) 100 ml @ 50 mls/hr UNSCH PRN IV For Magnesium 1.2 - 1.6 mg/dL; Start 11/13/16 at 16:00; Stop 11/21/16 at 07:53; Status DC Potassium Phosphate 2000 mg 2,000 mg Q4H PRN PO For Phosphorus < 2.5 mg/dL; Start 11/13/16 at 16:00; Stop 11/21/16 at 07:53; Status DC Sodium Phosphate/ Sodium Chloride (Sodium Phosphate Inj/NS 250 ml Inj) 250 ml @ 42 mls/hr UNSCH PRN IV For Phosphorus < 2.5 mg/dL Last administered on t 06:39; Start 11/13/16 at 16:00; Stop 11/21/16 at 07:53; Status DC Potassium Phosphate 2000 mg 2,000 mg UNSCH PRN PO/TUBE SEE LABEL COMMENTS; Start 11/13/16 at 15:52; Stop 11/21/16 at 07:53; Status DC Potassium Phosphate/Sodium Chloride (Potassium Phosphate Inj/NS 250 ml Inj) 260 ml @ 42 mls/hr UNSCH PRN IV SEE LABEL COMMENTS Last administered on 11/20/16 00:47; Start 11/13/16 at 15:52; Stop 11/21/16 at 07:53; Status DC IV Flush (NS Flush) 2 ml UNSCH PRN IV FLUSH FLUSH AFTER USING IV ACCESS; Start 11/13/16 at 16:30; Stop 11/13/16 at 16:54; Status DC IV Flush 2 ml 2 ml BID IV FLUSH Last administered on 11/23/16 09:00; Start at 21:00 Piperacillin Sod/ Tazobactam Sod 100 ml @ 200 mls/hr Q6H IV Last administered on 11/14/16 08:38; Start 11/13/16 at 20:00; Stop 11/14/16 at 13:39; Status DC Azithromycin/ Sodium Chloride (Zithromax Inj/ NS 250 ml Inj) 250 ml @ 250 mls/ hr Q24H IV Last administered on 11/14/16 18:21; Start 11/13/16 at 18:00; Stop 11/15/16 at 08:43; Status DC Miscellaneous Information 1 Q361D XX ; Start 11/13/16 at 16:30 Chlorhexidine Gluconate (Chlorhexidine 2% Cloth) Taper DAILY@04 TOP Last administered on 11/19/16 04:00; Start 11/14/16 at 04:00; Stop 11/10/17 at 03:59 Chlorhexidine Gluconate 3 pack 3 pack UNSCH PRN TOP HYGIENIC CARE; Start at 16:30 Pharmacy Profile Note (Coumadin Consult Pharmacy) 0 ml @ 0 mls/hr UNSCH OTHER ; Start 11/13/16 at 16:30 Iohexol (Omnipaque 350 Inj) 75 ml STK-MED ONCE IV Last administered on 17:00; Start 11/13/16 at 17:00; Stop 11/13/16 at 17:01; Status DC Warfarin Sodium 1 mg 1 mg DAILY@16 PO Last administered on 11/13/16 18:00; Start 11/13/16 at 18:00; Stop 11/14/16 at 15:07; Status DC Vancomycin HCl 1000 mg/Sodium Chloride 250 ml @ 250 mls/hr ONCE ONCE IV Last administered on 11/13/16 21:40; Start 11/13/16 at 21:30; Stop 11/13/16 at 22:29 ; Status DC Vancomycin HCl/ Sodium Chloride (Vancomycin Inj/ NS 250 ml Inj) 258 ml @ 250 mls/hr ONCE ONCE IV Last administered on 11/14/16 00:40; Start 11/14/16 at 00 :00; Stop 11/14/16 at 01:01; Status DC Calcium/Vitamin D 500 mg 500 mg BID PO Last administered on 11/23/16 10:22; Start 11/14/16 at 21:00 Vancomycin HCl/ Sodium Chloride (Vancomycin Inj/ NS 500 ml Inj) 517.5 ml @ 258.75 mls/ hr Q24H IV Last administered on 11/21/16 14:54; Start 11/14/16 at 12:00; Stop 11/21/16 at 18:51; Status DC Miscellaneous Information SPECIFIC LAB TO BE GONZALEZ... ONCE ONCE XX Last administered on 11/17/16 11:45; Start 11/17/16 at 11:45; Stop 11/17/16 at 11:46 ; Status DC Miscellaneous Medication (ASP Crit: Doc ESBL, MDR A baumannii or P aer) 1 UNSCH X1 PRN XX PHARMACY DOCUMENTATION; Start 11/14/16 at 13:30; Stop 11/15/16 at 13: 29; Status DC Miscellaneous Medication 1 1 UNSCH X1 PRN XX PHARMACY DOCUMENTATION; Start at 13:30; Stop 11/15/16 at 13:29; Status DC Meropenem/Sodium Chloride (Merrem Inj/NS Inj) 100 ml @ 200 mls/hr Q8H IV Last administered on 11/18/16 05:56; Start 11/14/16 at 14:00; Stop 11/18/16 at 09:45 ; Status DC IV Flush (NS Flush) DAILY IVF Last administered on 11/23/16 09:00; Start at 09:00 IV Flush (NS Flush) UNSCH PRN IVF SEE PROTOCOL; Start 11/14/16 at 14:45 Diatrizoate Meglum/ Diatrizoate Sod ( Gastrojaswinder Liq) 18 ml ONCE ONCE PO Last administered on 11/14/16 16:24; Start 11/14/16 at 14:45; Stop 11/14/16 at 14:46; Status DC Warfarin Sodium (Coumadin) 2 mg DAILY@16 PO Last administered on 11/15/16 17: 24; Start 11/14/16 at 16:00; Stop 11/16/16 at 08:33; Status DC Iohexol (Omnipaque 350 Inj) 93 ml STK-MED ONCE IV Last administered on 21:25; Start 11/14/16 at 21:25; Stop 11/14/16 at 21:26; Status DC Azithromycin (Zithromax) 500 mg DAILY PO Last administered on 11/16/16 08:38; Start 11/15/16 at 09:00; Stop 11/17/16 at 09:26; Status DC Hydrocortisone Sodium Succinate (SoluCORTEF INJ) 50 mg Q8H IV PUSH Last administered on 11/17/16 00:00; Start 11/15/16 at 16:00; Stop 11/17/16 at 08:12 ; Status DC Insulin Human Regular (NovoLIN R SUPPLEMENTAL SCALE) 1 ACHS SQ Last administered on 11/19/16 17:33; Start 11/15/16 at 16:00 Warfarin Sodium (Coumadin) 1.5 mg DAILY@16 PO Last administered on 11/21/16 16 :32; Start 11/16/16 at 16:00; Stop 11/22/16 at 10:17; Status DC Bumetanide (Bumex Inj) 1 mg ONCE ONCE IV PUSH Last administered on 11/16/16 09:17; Start 11/16/16 at 09:00; Stop 11/16/16 at 09:12; Status DC Hydrocortisone Sodium Succinate (SoluCORTEF INJ) 50 mg Q12H IV PUSH Last administered on 11/23/16 10:21; Start 11/17/16 at 21:00 Bumetanide (Bumex Inj) 1 mg ONCE ONCE IV PUSH Last administered on 11/17/16 09:46; Start 11/17/16 at 09:15; Stop 11/17/16 at 09:26; Status DC Bumetanide (Bumex Inj) 1 mg ONCE ONCE IV PUSH Last administered on 11/18/16 10:24; Start 11/18/16 at 10:00; Stop 11/18/16 at 10:16; Status DC Lisinopril (Prinivil) 2.5 mg DAILY PO Last administered on 11/23/16 10:22; Start 11/18/16 at 10:00 Miscellaneous (Pill Splitter) 1 ea UNSCH PRN OTHER SEE LABEL COMMENTS Last administered on 11/18/16 16:45; Start 11/18/16 at 09:30 Miscellaneous Medication (ASP Crit: Doc ESBL, MDR A baumannii or P aer) 1 UNSCH X1 PRN XX PHARMACY DOCUMENTATION; Start 11/18/16 at 09:45; Stop 11/19/16 at 09: 44; Status DC Miscellaneous Medication 1 1 UNSCH X1 PRN XX PHARMACY DOCUMENTATION; Start at 09:45; Stop 11/19/16 at 09:44; Status DC Ertapenem 1000 mg/ Sodium Chloride 100 ml @ 200 mls/hr Q24H IV ; Start at 11:00; Stop 11/19/16 at 03:21; Status DC Ertapenem/Sodium Chloride (INVanz INJ/NS Inj) 100 ml @ 200 mls/hr Q24H IV Last administered on 11/23/16 04:33; Start 11/19/16 at 04:00 Warfarin Sodium (Coumadin) 0.5 mg ONCE PO Last administered on 11/19/16 17:24 ; Start 11/19/16 at 16:00; Stop 11/19/16 at 21:00; Status DC Warfarin Sodium (Coumadin) 0.5 mg ONCE PO Last administered on 11/20/16 16:34 ; Start 11/20/16 at 16:00; Stop 11/20/16 at 21:00; Status DC Miscellaneous Information SPECIFIC LAB TO BE DRAWN:VANCOMYCIN TROUGH DATE TO... ONCE ONCE XX Last administered on 11/21/16 14:54; Start 11/21/16 at 11:45; Stop 11/21/16 at 11:46; Status DC Potassium Chloride (KCl) 40 meq ONCE ONCE PO Last administered on 11/20/16 18 :45; Start 11/20/16 at 18:00; Stop 11/20/16 at 18:21; Status DC Potassium Chloride (KCl) 20 meq DAILY PO Last administered on 11/23/16 10:22; Start 11/21/16 at 09:00 Albuterol/ Ipratropium (Duoneb Neb) 1 ampule Q4HR NEB NEB ; Start 11/21/16 at 12:00; Stop 11/21/16 at 12:36; Status DC Acetylcysteine (Mucomyst 10% Neb) 2 ml Q8HR NEB NEB Last administered on 08:00; Start 11/21/16 at 16:00 Albuterol/ Ipratropium 1 ampule 1 ampule Q6HR NEB NEB Last administered on 21:23; Start 11/21/16 at 16:00 Vancomycin HCl/ Sodium Chloride (Vancomycin Inj/ NS 500 ml Inj) 516 ml @ 258.75 mls/ hr Q24H IV Last administered on 11/22/16 11:35; Start 11/22/16 at 12:00 Warfarin Sodium (Coumadin) 1 mg ONCE ONCE PO Last administered on 11/22/16 16 :06; Start 11/22/16 at 16:00; Stop 11/22/16 at 16:01; Status DC Warfarin Sodium (Coumadin) 1.5 mg DAILY@16 PO ; Start 11/23/16 at 16:00 Miscellaneous Information SPECIFIC LAB TO BE .. ONCE ONCE XX ; Start at 11:45; Stop 11/25/16 at 11:46 Alprazolam (Xanax) 0.25 mg Q8HR PRN PO ANXIETY Last administered on 11/22/16 13:43; Start 11/22/16 at 11:45 Phenol (Chloraseptic Vancleve) 2 spray Q4HR PRN OROPHARYNG SORE THROAT; Start at 11:45 Furosemide (Lasix Inj) 20 mg STAT ONCE IV Last administered on 11/22/16 18:44 ; Start 11/22/16 at 18:45; Stop 11/22/16 at 18:46; Status DC Lorazepam (Ativan Inj) 0.5 mg STAT ONCE IV Last administered on 11/22/16 18: 44; Start 11/22/16 at 18:45; Stop 11/22/16 at 18:46; Status DC Line: Central Venous Catheter Side: Right Location: Femoral A/P Assessment and Plan A/P Acute hypoxemic respiratory failure COPD Possible HCAP Continue with oxygen keep sat >92% Bronchodilator therapy ; scheduled and as needed NIPPV PRN for resp distress Symbicort twice daily pulmonary following. Anxiety/ depression- history of Panic attacks On Escitalopram 10 mg by mouth daily for depression. added Xanax Acetaminophen for fever Artesian/morphine for pain management will consider psychiatry consult Chronic atrial fibrillation Coronary artery disease status post [place] 1987 Cardiomyopathy Congestive heart failure/systolic EF 35-40% 10/16 Hypertension Dyslipidemia Mildly aortic stenosis Severe septic shock 2-D echocardiogram 10/16 revealed EF 35-40% regional hypokinesis. Mild aortic stenosis Echo from 11/14:EF 20% to 25%. Diffuse hypokinesis. Grade 1 diastolic dysfunction. Lisinopril 2.5mg daily Solu-Cortef 50 mg Q12- will switch to po steroids soon. as OP. on Chronic prednisone use 20 milligrams daily.as OP Coreg 6.25 mg by mouth twice a day on hold Continue amiodarone 200 mg by mouth daily for A. fib. Continue atorvastatin 10 mg daily for dyslipidemia Possible healthcare associated pneumonia Continue abx per ID- on Vancomycin and Invanz Pertinent cultures 11/13 - blood cultures : Escherichia coli, Group D Enterococcus, GNR Negative urine Legionella pneumococcal antigens and influenza History of GI bleed Morbid obesity Cholelithiasis Chronic abdominal pain Chronic constipation Diverticulosis On PO heart healthy diet Protonix for GI prophylaxis. Colace/as needed Senokot for bowel regimen EGD from last admission - gastritis bx from antrum, normal endoscopy otherwise , retroflexed revealed no abnormalities, few diverticulosis in the sigmoid, normal surgical anastomosis, no active bleed, small polyp in the ascending colon removed by snare, the colon mucosa was otherwise normal, retroflexed views revealed internal hemorrhoids, small internal hemorrhoids, revealed no abnormalities of the rectum. BPH Hypogonadism Chronic kidney disease stage III HYpokalemia Monitor renal function and electrolytes periodically. Normocytic anemia history of ITP Chronic VKA use At home on Coumadin 2 mg by mouth daily. Monitor CBC/CMP daily.. Daily INRs with pharmacy to manage. Chronically prednisone 20 mg daily for ITP currently on Solucortef 50 mg q 12 stress dose- since 11/17- gradually transition to above po dose gradually Chronic compression fractures of thoracic vertebrae Chronic low back pain Deconditioning- baseline gets around with a walker continue with pain control and PT. DVT prophylaxis with coumadin. David Pratt MD Nov 23, 2016 11:52
[2016-11-23] MEDS: VANCOMYCIN INJ 1,600 MG in SODIUM CHLORID 0.9% 500 ML INJ 500 ML IV SCH (12:00)
--- NOTE | 2016-11-23 12:34 | HHI.IDPN ---
Subjective Subjective Remarks Notes reviewed Clinically doing well and stable Temps ok On nasal O2 at 2L Gets easily SOB No new complaint Antibiotics Invanz Vancomycin Lines PIV Past Medical History CAD, cardiomyopathy Hypogonadism History of hypertension History of right lower extreme DVT 2010 Chronic kidney disease creatinine currently 1.2 Anticoagulation use Anxiety disorder Chronic atrial fibrillation Chronic low back pain Cholelithiasis Chronic compression fractures thoracic vertebrae COPD by diagnosis Depression NOS Diverticulosis Hypertension Dyslipidemia History of ITP Macrocytosis TERRENCE Esophagitis Past Surgical History AICD placement with battery replacement 2015 Pilonidal cyst resection Colon resection with colostomy for diverticulitis with colon perforation with takedown diverting colostomy Cataract Allergies: Coded Allergies: Quinidex Extentab (Verified Allergy, Severe, PLATELETT COUNT DECREASES/ BLINDNESS, 11/02/16) Niacin (Verified Allergy, Intermediate, RASH/ITCHING, 11/02/16) MRI PRECAUTION (Verified Adverse Reaction, Severe, NON MRI COMPATIBLE DEFIB 10/22/15 LRS, 11/02/16) *MDRO Multi-Drug Resistant Organism (Verified Adverse Reaction, Unknown, ESBL, 11/17/16) ESBL E. coli (abd. 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 coli (urine) - 03/08/16, 09/28/16, 10/19/16 ESBL E.Coli (blood)-11/13/16 Objective . Vital Signs Date Time Temp Pulse Resp B/P Pulse Ox O2 Delivery O2 Flow Rate FiO2 11/23/16 08:00 98.1 82 20 135/64 98 11/23/16 04:37 98.3 85 18 128/65 97 Manual Cuff/Auscultation 11/23/16 00:20 98.4 106 20 109/66 97 11/23/16 00:00 97 Nasal Cannula 2.00 11/22/16 20:00 97 11/22/16 20:00 Nasal Cannula 2.00 11/22/16 20:00 97.9 98 22 77/46 96 11/22/16 17:14 96 Nasal Cannula 3.00 11/22/16 11/22/16 11/23/16 15:00 23:00 07:00 Intake Total 862 ml 120 ml Output Total 300 ml 200 ml Balance 562 ml -80 ml Intake Oral 600 ml 120 ml IV Total 262 ml Output Urine Total 300 ml 200 ml # Bowel Movements 1 0 . Laboratory Tests Test 11/23/16 06:00 Creatinine 0.84 MG/DL Estimat Glomerular Filtration 89 ML/MIN Rate Imaging Chest X-Ray 11/16/16 0600 Signed Impressions: Service Date/Time: Wednesday, November 16, 2016 03:33 - CONCLUSION: Increasing consolidation and bilateral effusions are suspected. Loc Campbell MD Chest X-Ray 11/14/16 1433 Signed Impressions: Service Date/Time: Monday, November 14, 2016 14:57 - CONCLUSION: 1. Interval placement of left internal jugular central venous line with no pneumothorax. 2. Abnormal opacity remains at the left lung base with probable effusion. Yohan Vera MD Chest X-Ray 11/14/16 1433 Signed Impressions: Service Date/Time: Monday, November 14, 2016 14:57 - CONCLUSION: 1. Interval placement of left internal jugular central venous line with no pneumothorax. 2. Abnormal opacity remains at the left lung base with probable effusion. Yohan Vera MD Abdomen/Pelvis CT 11/14/16 0000 Signed Impressions: Service Date/Time: Monday, November 14, 2016 21:20 - CONCLUSION: 1. Contracted gallbladder with calcified gallstones again noted. 2. Multiple anterior abdominal hernias again noted. 3. Nonspecific, nonobstructive bowel gas. 4. Mild consolidation in the lung bases. Yohan Vera MD CT Angiography 11/13/16 0000 Signed Impressions: Service Date/Time: Sunday, November 13, 2016 16:43 - CONCLUSION: 1. No pulmonary embolus. 2. Emphysematous change in the upper lungs and consolidation or atelectasis in the lower lungs. 3. 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 This finding is unchanged. 4. Multiple compression fractures in the thoracic spine. Salvatore Goddard MD Physical Exam GENERAL: Awake and alert, NAD. On nasal O2. SKIN: Cool and dry, no generalized rash HEENT: [place] conjunctivae, no petechia or hemorrhage. No scleral icterus. Moist mucosa, no oral thrush. . NECK: Supple, nontender, no meningeal signs. Line ok CARDIOVASCULAR: Regular rate and rhythm without murmurs, gallops, or rubs. AICD L upper chest fairly unremarkable RESPIRATORY: Decreased BS both ling guthrie GASTROINTESTINAL: Abdomen soft, non-tender, nondistended. Bowel sounds are present and normoactive. No guarding. MUSCULOSKELETAL: Extremities without clubbing, cyanosis, or edema. No calf tenderness. NEUROLOGICAL: Grossly non-focal PSYCH: Calm and cooperative : Paz in place, urine clear LINE: PIV Assessment & Plan Remarks IMPRESSION Polymicrobial sepsis on admission, with shock, source - BP better - C/O SOB, and some cough, ?PNA - UA ok - LFT ok - had E coli ESBL+ UTI last September - has AICD, site unremarkable Cardiomyopathy, CAD Burning at paz cath site RECOMMENDATION Continue Invanz Continue Vancomycin Add Diflucan Monitor progress Abx until 11/26 Emilia Houston MD Nov 23, 2016 12:34
[2016-11-23] MEDS: FLUCONAZOLE 100 MG TAB PO SCH (12:45)
[2016-11-23] MEDS ORDERED: WARFARIN SOD 1 MG TAB PO SCH (16:00)
[2016-11-23] MEDS: ALPRAZolam 0.25 MG TAB PO PRN (17:21)
--- NOTE | 2016-11-23 19:03 | HHI.PR ---
Subjective Remarks 76 YOWM with Bilat Pn,COPD,CHF,AF On Abx Feels better Weak, mild sob Cough and congestion Small amount of sp Objective Vital Signs Vital Signs Date Time Temp Pulse Resp B/P Pulse Ox O2 Delivery O2 Flow Rate FiO2 11/23/16 16:00 98.1 90 18 129/58 93 11/23/16 12:00 98.5 96 20 122/70 98 11/23/16 08:00 96 Nasal Cannula 2.00 11/23/16 08:00 80 11/23/16 08:00 98.1 82 20 135/64 98 11/23/16 04:37 98.3 85 18 128/65 97 Manual Cuff/Auscultation 11/23/16 00:20 98.4 106 20 109/66 97 11/23/16 00:00 97 Nasal Cannula 2.00 11/22/16 20:00 97 11/22/16 20:00 Nasal Cannula 2.00 11/22/16 20:00 97.9 98 22 77/46 96 I/O 11/22/16 11/22/16 11/22/16 11/23/16 11/23/16 11/23/16 07:00 15:00 23:00 07:00 15:00 23:00 Intake Total 240 ml 862 ml 120 ml 480 ml Output Total 300 ml 300 ml 200 ml 600 ml Balance -60 ml 562 ml -80 ml -120 ml Intake Oral 240 ml 600 ml 120 ml 480 ml IV Total 262 ml Output Urine Total 300 ml 300 ml 200 ml 600 ml # Bowel Movements 0 1 0 3 Result Diagram: 11/19/16 0630 11/23/16 0600 Objective Remarks GENERAL: Elderly male ,NAD SKIN: Warm and dry. HEAD: Normocephalic. EYES: No scleral icterus. No injection or drainage. NECK: Supple, trachea midline. No JVD or lymphadenopathy. CARDIOVASCULAR: Regular rate and rhythm without murmurs, gallops, or rubs. RESPIRATORY: Breath sounds equal bilaterally. No accessory muscle use. GASTROINTESTINAL: Abdomen soft, non-tender, nondistended. MUSCULOSKELETAL: No cyanosis, + edema. BACK: Nontender without obvious deformity. No CVA tenderness. A/P Assessment and Plan Bilat Infilt HTN COPD CHF AF CAD H/O ITP PLAN: Cont Abx Vanco and Ertapenem Aerosol nebs Mucomyst nebs Symbicort Bid Coumadin 1.5 mg Monitor INR Bahman Villarreal MD Nov 23, 2016 19:03
[2016-11-23] MEDS: ATORVASTATIN 10 MG TAB PO SCH (22:42)
[2016-11-24] VITALS (11 sets, daily range): BP systolic 95–131; BP diastolic 56–64; PULSE 72–99; RESP 18–22; TEMP 97–98.6; O2SAT 95–99
[2016-11-24] MEDS: RESP: ALBUTEROL 2.5 MG/IPRATROPIUM 0.5 MG NEB (SCH) NEB ×4 (03:21→20:13)
[2016-11-24] MEDS: ERTAPENEM INJ 1,000 MG in SODIUM CHLORIDE 0.9% INJ 100 ML IV SCH (04:00)
[2016-11-24] MEDS: CHLORHEXIDINE GLUCONATE 2 % 1 PACK (2 CLOTHS) TOP SCH (04:00)
[2016-11-24] MEDS: INSULIN NovoLIN REGULAR SUPPLEMENTAL SCALE SQ SCH ×4 (06:44→21:00)
[2016-11-24 07:55] LABS: INTERNATIONAL NORMALIZED RATIO 2.8 RATIO; PROTHROMBIN TIME - PATIENT 32.8 SEC (9.8-11.6)
[2016-11-24] MEDS: RESP: ACETYLCYSTEINE 10% 30 ML NEB NEB SCH ×4 (08:59→20:14)
[2016-11-24] MEDS: DOCUSATE SODIUM 100 MG CAP PO SCH ×2 (09:00→21:00)
[2016-11-24] MEDS: SODIUM CHLORIDE 0.9% FLUSH 5 ML FLUSH IV FLUSH SCH ×2 (09:00→21:04)
[2016-11-24] MEDS: SODIUM CHLORIDE 0.9% FLUSH 5 ML FLUSH IVF SCH (09:00)
[2016-11-24] MEDS: BUDESONIDE-FORMOTEROL 160/4.5 MCG INHALER INH SCH ×2 (09:00→21:00)
[2016-11-24] MEDS ORDERED: HYDROCORTISONE SOD SUCCINATE 100 MG VIAL IV PUSH SCH (09:00)
[2016-11-24] MEDS: ARTIFICIAL TEARS OPTH SOLN 15 ML BTL EACH EYE SCH ×3 (09:00→17:57)
[2016-11-24] MEDS: MULTIVITAMINS/MINERALS THERAPEUTIC TAB PO SCH (09:29)
[2016-11-24] MEDS: PANTOPRAZOLE SODIUM 40 MG VIAL IV SCH (09:29)
[2016-11-24] MEDS: POTASSIUM CHLORIDE 20 MEQ CONTROLLED RELEASE TAB PO SCH (09:29)
[2016-11-24] MEDS: AMIODARONE 200 MG TAB PO SCH (09:30)
[2016-11-24] MEDS: LISINOPRIL 5 MG TAB PO SCH (09:30)
[2016-11-24] MEDS: FLUCONAZOLE 100 MG TAB PO SCH (09:30)
[2016-11-24] MEDS: CALCIUM/VITAMIN D 250 MG/125 U TAB PO SCH ×2 (09:30→21:04)
[2016-11-24] MEDS: ESCITALOPRAM OXALATE 10 MG TAB PO SCH (09:31)
--- NOTE | 2016-11-24 10:58 | HHI.PR ---
Subjective Remarks overall looks better. still with some sob. no fever. Objective Vitals Vital Signs Date Time Temp Pulse Resp B/P Pulse Ox O2 Delivery O2 Flow Rate FiO2 11/24/16 09:00 95 Nasal Cannula 3.00 11/24/16 08:00 97.7 82 18 122/63 98 11/24/16 07:26 75 11/24/16 04:00 97.0 72 18 101/56 97 11/24/16 00:00 97.4 78 18 118/56 98 11/23/16 20:00 97.5 77 18 109/55 94 11/23/16 19:22 95 Nasal Cannula 3.00 11/23/16 16:00 98.1 90 18 129/58 93 11/23/16 12:00 98.5 96 20 122/70 98 I/O 11/23/16 11/23/16 11/23/16 11/24/16 11/24/16 11/24/16 07:00 15:00 23:00 07:00 15:00 23:00 Intake Total 480 ml 360 ml 120 ml Output Total 600 ml 600 ml 800 ml Balance -120 ml -240 ml -680 ml Intake Oral 480 ml 360 ml 120 ml Output Urine Total 600 ml 600 ml 800 ml # Bowel Movements 3 0 0 Result Diagram: 11/23/16 0600 Imaging Last Impressions Chest X-Ray 11/16/16 0600 Signed Impressions: Service Date/Time: Wednesday, November 16, 2016 03:33 - CONCLUSION: Increasing consolidation and bilateral effusions are suspected. Loc Campbell MD Abdomen/Pelvis CT 11/14/16 0000 Signed Impressions: Service Date/Time: Monday, November 14, 2016 21:20 - CONCLUSION: 1. Contracted gallbladder with calcified gallstones again noted. 2. Multiple anterior abdominal hernias again noted. 3. Nonspecific, nonobstructive bowel gas. 4. Mild consolidation in the lung bases. Yohan Vera MD CT Angiography 11/13/16 0000 Signed Impressions: Service Date/Time: Sunday, November 13, 2016 16:43 - CONCLUSION: 1. No pulmonary embolus. 2. Emphysematous change in the upper lungs and consolidation or atelectasis in the lower lungs. 3. 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 This finding is unchanged. 4. Multiple compression fractures in the thoracic spine. Salvatore Goddard MD Objective Remarks GENERAL: with mild sob HEENT; no pharyngeal exudate CARDIOVASCULAR: Regular rate and irregular rhythm without murmurs, gallops, or rubs. RESPIRATORY: bilateral wheezing and prolonged expiration. GASTROINTESTINAL: Abdomen soft, non-tender, nondistended. Normal, active bowel sounds MUSCULOSKELETAL: Extremities without clubbing, cyanosis, or edema. NEURO: Alert & Oriented x4 to person, place, time, situation. Moves all ext x4 Procedures central line placement Medications and IVs Current Medications Norepinephrine Bitartrate (Levophed-Dextrose Drip) 250 ml @ 0 mls/hr TITRATE IV Last administered on 11/15/16 01:13; Start 11/13/16 at 12:15; Stop 11/17/16 at 08:11; Status DC Terbutaline Sulfate 1 mg 1 mg UNSCH PRN SQ For Extravasation; Start 11/13/16 at 12:15 Dopamine HCl/ Dextrose (DOPamine INJ PREMIX) 500 ml @ 0 mls/hr TITRATE IV ; Start 11/13/16 at 12:15; Stop 11/15/16 at 14:05; Status DC Terbutaline Sulfate 1 mg 1 mg UNSCH PRN SQ For Extravasation; Start 11/13/16 at 12:15; Status Cancel Vancomycin HCl 1000 mg/Sodium Chloride 250 ml @ 250 mls/hr ONCE ONCE IV ; Start 11/13/16 at 12:45; Stop 11/13/16 at 13:44; Status DC Piperacillin Sod/ Tazobactam Sod 50 ml @ 100 mls/hr ONCE ONCE IV Last administered on 11/13/16 13:13; Start 11/13/16 at 12:45; Stop 11/13/16 at 13:14 ; Status DC Sodium Chloride 1,000 ml @ 999 mls/hr BOLUS ONCE IV Last administered on 11/13 14:04; Start 11/13/16 at 13:15; Stop 11/13/16 at 14:15; Status DC Sodium Chloride (NS 1000 ml Inj) 1,000 ml @ 84 mls/hr [id number] IV Last administered on 11/15/16 01:13; Start 11/13/16 at 13:13; Stop 11/15/16 at 14:00 ; Status DC IV Flush (NS Flush) 2 ml UNSCH PRN IV FLUSH FLUSH AFTER USING IV ACCESS Last administered on 11/15/16 08:12; Start 11/13/16 at 13:15 IV Flush (NS Flush) 2 ml BID IV FLUSH ; Start 11/13/16 at 21:00; Stop 11/13/16 at 21:00; Status DC Acetaminophen (Tylenol) 650 mg Q6H PRN PO FEVER >101F; Start 11/13/16 at 13:15 Acetaminophen/ Hydrocodone Bitart ([place] 5-325 Mg) 1 tab Q4H PRN PO PAIN SCALE 1 TO 5 Last administered on 11/13/16 16:00; Start 11/13/16 at 13:15 Morphine Sulfate (Morphine Inj) 2 mg Q2H PRN IV PAIN SCALE 6 TO 10 Last administered on 11/16/16 06:54; Start 11/13/16 at 13:15 Pantoprazole Sodium (Protonix Inj) 40 mg DAILY IV Last administered on 09:29; Start 11/14/16 at 09:00 Artificial Tears (Tears Naturale Opth Soln) 1 drop TID EACH EYE Last administered on 11/24/16 09:00; Start 11/13/16 at 18:00 Ondansetron HCl (Zofran Inj) 4 mg Q6H PRN IV NAUSEA OR VOMITING; Start at 13:15 Docusate Sodium (Colace) 100 mg BID PO Last administered on 11/24/16 09:00; Start 11/13/16 at 21:00 Sennosides (Senokot) 17.2 mg Q12H PRN PO CONSTIPATION; Start 11/13/16 at 13:15 Albuterol/ Ipratropium (Duoneb Neb) 1 ampule Q6HR NEB INH Last administered on 11/17/16 15:46; Start 11/13/16 at 16:00; Stop 11/17/16 at 16:00; Status DC Albuterol Sulfate (Albuterol Neb) 2.5 mg Q2HR NEB PRN INH SOB/WHEEZING Last administered on 11/22/16 18:08; Start 11/13/16 at 13:15 Miscellaneous Information 1 Q361D XX ; Start 11/13/16 at 13:15; Stop 11/13/16 at 16:59; Status DC Chlorhexidine Gluconate (Chlorhexidine 2% Cloth) 3 pack Taper DAILY@04 TOP ; Start 11/14/16 at 04:00; Stop 11/14/16 at 04:00; Status DC Chlorhexidine Gluconate (Chlorhexidine 2% Cloth) 3 pack UNSCH PRN TOP HYGIENIC CARE; Start 11/13/16 at 13:15; Stop 11/13/16 at 16:59; Status DC Dextrose (D50w (Vial) Inj) 25 ml UNSCH PRN IV PUSH HYPOGLYCEMIA-SEE COMMENTS; Start 11/13/16 at 13:15 Glucagon (Glucagon Inj) 1 mg UNSCH PRN OTHER HYPOGLYCEMIA-SEE COMMENTS; Start 11/13/16 at 13:15 Insulin Human Regular (NovoLIN R SUPPLEMENTAL SCALE) 1 Q6HR SQ Last administered on 11/15/16 11:36; Start 11/13/16 at 18:00; Stop 11/15/16 at 14:01 ; Status DC Amiodarone HCl (Cordarone) 200 mg DAILY PO Last administered on 11/24/16 09:30 ; Start 11/14/16 at 09:00 Atorvastatin Calcium (Lipitor) 10 mg HS PO Last administered on 11/23/16 22:42 ; Start 11/13/16 at 21:00 Budesonide/ Formoterol Fumarate (Symbicort 160-4.5 Inh) 2 puff Q12HR INH Last administered on 11/24/16 09:00; Start 11/13/16 at 21:00 Escitalopram Oxalate (Lexapro) 10 mg DAILY PO Last administered on 11/24/16 09 :31; Start 11/14/16 at 09:00 Multivitamins/ Minerals Therapeutic (Theragran M Tab) 1 tab DAILY PO Last administered on 11/24/16 09:29; Start 11/14/16 at 09:00 Tamsulosin HCl (Flomax) 0.4 mg HS PO ; Start 11/13/16 at 21:00; Status Hold Calcium/Vitamin D 2 mg 2 mg BID PO Last administered on 11/13/16 20:50; Start 11/13/16 at 21:00; Stop 11/14/16 at 09:09; Status DC Magnesium Sulfate/ Dextrose (Magnesium Sulfate 1 Gm Premix) 100 ml @ 100 mls/ hr Q1H IV Last administered on 11/13/16 14:30; Start 11/13/16 at 13:30; Stop 11/13/16 at 15:29; Status DC Dextrose 25 ml 25 ml ONCE ONCE IV PUSH Last administered on 11/13/16 13:58; Start 11/13/16 at 13:45; Stop 11/13/16 at 13:46; Status DC Dextrose/Sodium Chloride 1,000 ml @ 100 mls/hr Q10H IV ; Start 11/13/16 at 13: 45; Stop 11/13/16 at 13:50; Status DC Vasopressin 40 units/Dextrose 100 ml @ 1.5 mls/hr Q24H IV Last administered on 11/13/16 20:49; Start 11/13/16 at 16:00; Stop 11/17/16 at 08:12; Status DC Sodium Chloride (NS 1000 ml Inj) 1,000 ml @ 999 mls/hr BOLUS ONCE IV Last administered on 11/13/16 16:00; Start 11/13/16 at 16:00; Stop 11/13/16 at 17:00 ; Status DC Hydrocortisone Sodium Succinate 100 mg 100 mg Q8H IV PUSH Last administered on 11/15/16 08:11; Start 11/13/16 at 16:00; Stop 11/15/16 at 14:01; Status DC Sodium Phosphate 30 mmol/Sodium Chloride 260 ml @ 43.333 mls/ hr ONCE ONCE IV Last administered on 11/13/16 15:45; Start 11/13/16 at 15:45; Stop 11/13/16 at 21:44; Status DC Magnesium Sulfate/ Dextrose 100 ml @ 100 mls/hr Q1H IV Last administered on 17:00; Start 11/13/16 at 16:00; Stop 11/13/16 at 17:59; Status DC Pharmacy Profile Note 0 ml @ 0 mls/hr UNSCH OTHER ; Start 11/13/16 at 15:45 Potassium Chloride 100 ml @ 50 mls/hr Q2H PRN IV For Potassium 2.8 - 3.2 mEq/ L Last administered on 11/15/16 08:11; Start 11/13/16 at 16:00; Stop 11/21/16 at 07:53; Status DC Potassium Chloride 100 ml @ 50 mls/hr Q2H PRN IV For Potassium 2.8 - 3.2 mEq/L ; Start 11/13/16 at 16:00; Stop 11/21/16 at 07:53; Status DC Potassium Chloride 100 ml @ 25 mls/hr UNSCH PRN IV For Potassium 3.3 - 3.5 mEq /L; Start 11/13/16 at 16:00; Stop 11/21/16 at 07:53; Status DC Potassium Chloride 100 ml @ 50 mls/hr Q2H PRN IV For Potassium 3.3 - 3.5 mEq/L ; Start 11/13/16 at 16:00; Stop 11/21/16 at 07:53; Status DC Magnesium Sulfate/ Sodium Chloride (Magnesium Sulfate Inj/NS Inj) 100 ml @ 50 mls/hr UNSCH PRN IV For Magnesium 0.9 - 1.1 mg/dL; Start 11/13/16 at 16:00; Stop 11/21/16 at 07:53; Status DC Magnesium Oxide 800 mg 800 mg UNSCH PRN PO For Magnesium 1.2 - 1.6 mg/dL; Start 11/13/16 at 16:00; Stop 11/21/16 at 07:53; Status DC Magnesium Sulfate/ Sodium Chloride (Magnesium Sulfate Inj/NS Inj) 100 ml @ 50 mls/hr UNSCH PRN IV For Magnesium 1.2 - 1.6 mg/dL; Start 11/13/16 at 16:00; Stop 11/21/16 at 07:53; Status DC Potassium Phosphate 2000 mg 2,000 mg Q4H PRN PO For Phosphorus < 2.5 mg/dL; Start 11/13/16 at 16:00; Stop 11/21/16 at 07:53; Status DC Sodium Phosphate/ Sodium Chloride (Sodium Phosphate Inj/NS 250 ml Inj) 250 ml @ 42 mls/hr UNSCH PRN IV For Phosphorus < 2.5 mg/dL Last administered on t 06:39; Start 11/13/16 at 16:00; Stop 11/21/16 at 07:53; Status DC Potassium Phosphate 2000 mg 2,000 mg UNSCH PRN PO/TUBE SEE LABEL COMMENTS; Start 11/13/16 at 15:52; Stop 11/21/16 at 07:53; Status DC Potassium Phosphate/Sodium Chloride (Potassium Phosphate Inj/NS 250 ml Inj) 260 ml @ 42 mls/hr UNSCH PRN IV SEE LABEL COMMENTS Last administered on 11/20/16 00:47; Start 11/13/16 at 15:52; Stop 11/21/16 at 07:53; Status DC IV Flush (NS Flush) 2 ml UNSCH PRN IV FLUSH FLUSH AFTER USING IV ACCESS; Start 11/13/16 at 16:30; Stop 11/13/16 at 16:54; Status DC IV Flush 2 ml 2 ml BID IV FLUSH Last administered on 11/24/16 09:00; Start at 21:00 Piperacillin Sod/ Tazobactam Sod 100 ml @ 200 mls/hr Q6H IV Last administered on 11/14/16 08:38; Start 11/13/16 at 20:00; Stop 11/14/16 at 13:39; Status DC Azithromycin/ Sodium Chloride (Zithromax Inj/ NS 250 ml Inj) 250 ml @ 250 mls/ hr Q24H IV Last administered on 11/14/16 18:21; Start 11/13/16 at 18:00; Stop 11/15/16 at 08:43; Status DC Miscellaneous Information 1 Q361D XX ; Start 11/13/16 at 16:30 Chlorhexidine Gluconate (Chlorhexidine 2% Cloth) Taper DAILY@04 TOP Last administered on 11/19/16 04:00; Start 11/14/16 at 04:00; Stop 11/10/17 at 03:59 Chlorhexidine Gluconate 3 pack 3 pack UNSCH PRN TOP HYGIENIC CARE; Start at 16:30 Pharmacy Profile Note (Coumadin Consult Pharmacy) 0 ml @ 0 mls/hr UNSCH OTHER ; Start 11/13/16 at 16:30 Iohexol (Omnipaque 350 Inj) 75 ml STK-MED ONCE IV Last administered on 17:00; Start 11/13/16 at 17:00; Stop 11/13/16 at 17:01; Status DC Warfarin Sodium 1 mg 1 mg DAILY@16 PO Last administered on 11/13/16 18:00; Start 11/13/16 at 18:00; Stop 11/14/16 at 15:07; Status DC Vancomycin HCl 1000 mg/Sodium Chloride 250 ml @ 250 mls/hr ONCE ONCE IV Last administered on 11/13/16 21:40; Start 11/13/16 at 21:30; Stop 11/13/16 at 22:29 ; Status DC Vancomycin HCl/ Sodium Chloride (Vancomycin Inj/ NS 250 ml Inj) 258 ml @ 250 mls/hr ONCE ONCE IV Last administered on 11/14/16 00:40; Start 11/14/16 at 00 :00; Stop 11/14/16 at 01:01; Status DC Calcium/Vitamin D 500 mg 500 mg BID PO Last administered on 11/24/16 09:30; Start 11/14/16 at 21:00 Vancomycin HCl/ Sodium Chloride (Vancomycin Inj/ NS 500 ml Inj) 517.5 ml @ 258.75 mls/ hr Q24H IV Last administered on 11/21/16 14:54; Start 11/14/16 at 12:00; Stop 11/21/16 at 18:51; Status DC Miscellaneous Information SPECIFIC LAB TO BE GONZALEZ... ONCE ONCE XX Last administered on 11/17/16 11:45; Start 11/17/16 at 11:45; Stop 11/17/16 at 11:46 ; Status DC Miscellaneous Medication (ASP Crit: Doc ESBL, MDR A baumannii or P aer) 1 UNSCH X1 PRN XX PHARMACY DOCUMENTATION; Start 11/14/16 at 13:30; Stop 11/15/16 at 13: 29; Status DC Miscellaneous Medication 1 1 UNSCH X1 PRN XX PHARMACY DOCUMENTATION; Start at 13:30; Stop 11/15/16 at 13:29; Status DC Meropenem/Sodium Chloride (Merrem Inj/NS Inj) 100 ml @ 200 mls/hr Q8H IV Last administered on 11/18/16 05:56; Start 11/14/16 at 14:00; Stop 11/18/16 at 09:45 ; Status DC IV Flush (NS Flush) DAILY IVF Last administered on 11/24/16 09:00; Start at 09:00 IV Flush (NS Flush) UNSCH PRN IVF SEE PROTOCOL; Start 11/14/16 at 14:45 Diatrizoate Meglum/ Diatrizoate Sod ( Gastroview Liq) 18 ml ONCE ONCE PO Last administered on 11/14/16 16:24; Start 11/14/16 at 14:45; Stop 11/14/16 at 14:46; Status DC Warfarin Sodium (Coumadin) 2 mg DAILY@16 PO Last administered on 11/15/16 17: 24; Start 11/14/16 at 16:00; Stop 11/16/16 at 08:33; Status DC Iohexol (Omnipaque 350 Inj) 93 ml STK-MED ONCE IV Last administered on 21:25; Start 11/14/16 at 21:25; Stop 11/14/16 at 21:26; Status DC Azithromycin (Zithromax) 500 mg DAILY PO Last administered on 11/16/16 08:38; Start 11/15/16 at 09:00; Stop 11/17/16 at 09:26; Status DC Hydrocortisone Sodium Succinate (SoluCORTEF INJ) 50 mg Q8H IV PUSH Last administered on 11/17/16 00:00; Start 11/15/16 at 16:00; Stop 11/17/16 at 08:12 ; Status DC Insulin Human Regular (NovoLIN R SUPPLEMENTAL SCALE) 1 ACHS SQ Last administered on 11/19/16 17:33; Start 11/15/16 at 16:00 Warfarin Sodium (Coumadin) 1.5 mg DAILY@16 PO Last administered on 11/21/16 16 :32; Start 11/16/16 at 16:00; Stop 11/22/16 at 10:17; Status DC Bumetanide (Bumex Inj) 1 mg ONCE ONCE IV PUSH Last administered on 11/16/16 09:17; Start 11/16/16 at 09:00; Stop 11/16/16 at 09:12; Status DC Hydrocortisone Sodium Succinate (SoluCORTEF INJ) 50 mg Q12H IV PUSH Last administered on 11/23/16 10:21; Start 11/17/16 at 21:00; Stop 11/23/16 at 11:53 ; Status DC Bumetanide (Bumex Inj) 1 mg ONCE ONCE IV PUSH Last administered on 11/17/16 09:46; Start 11/17/16 at 09:15; Stop 11/17/16 at 09:26; Status DC Bumetanide (Bumex Inj) 1 mg ONCE ONCE IV PUSH Last administered on 11/18/16 10:24; Start 11/18/16 at 10:00; Stop 11/18/16 at 10:16; Status DC Lisinopril (Prinivil) 2.5 mg DAILY PO Last administered on 11/24/16 09:30; Start 11/18/16 at 10:00 Miscellaneous (Pill Splitter) 1 ea UNSCH PRN OTHER SEE LABEL COMMENTS Last administered on 11/18/16 16:45; Start 11/18/16 at 09:30 Miscellaneous Medication (ASP Crit: Doc ESBL, MDR A baumannii or P aer) 1 UNSCH X1 PRN XX PHARMACY DOCUMENTATION; Start 11/18/16 at 09:45; Stop 11/19/16 at 09: 44; Status DC Miscellaneous Medication 1 1 UNSCH X1 PRN XX PHARMACY DOCUMENTATION; Start at 09:45; Stop 11/19/16 at 09:44; Status DC Ertapenem 1000 mg/ Sodium Chloride 100 ml @ 200 mls/hr Q24H IV ; Start at 11:00; Stop 11/19/16 at 03:21; Status DC Ertapenem/Sodium Chloride (INVanz INJ/NS Inj) 100 ml @ 200 mls/hr Q24H IV Last administered on 11/24/16 04:00; Start 11/19/16 at 04:00; Stop 11/26/16 at 23:00 Warfarin Sodium (Coumadin) 0.5 mg ONCE PO Last administered on 11/19/16 17:24 ; Start 11/19/16 at 16:00; Stop 11/19/16 at 21:00; Status DC Warfarin Sodium (Coumadin) 0.5 mg ONCE PO Last administered on 11/20/16 16:34 ; Start 11/20/16 at 16:00; Stop 11/20/16 at 21:00; Status DC Miscellaneous Information SPECIFIC LAB TO BE DRAWN:VANCOMYCIN TROUGH DATE TO... ONCE ONCE XX Last administered on 11/21/16 14:54; Start 11/21/16 at 11:45; Stop 11/21/16 at 11:46; Status DC Potassium Chloride (KCl) 40 meq ONCE ONCE PO Last administered on 11/20/16 18 :45; Start 11/20/16 at 18:00; Stop 11/20/16 at 18:21; Status DC Potassium Chloride (KCl) 20 meq DAILY PO Last administered on 11/24/16 09:29; Start 11/21/16 at 09:00 Albuterol/ Ipratropium (Duoneb Neb) 1 ampule Q4HR NEB NEB ; Start 11/21/16 at 12:00; Stop 11/21/16 at 12:36; Status DC Acetylcysteine (Mucomyst 10% Neb) 2 ml Q8HR NEB NEB Last administered on 08:59; Start 11/21/16 at 16:00 Albuterol/ Ipratropium 1 ampule 1 ampule Q6HR NEB NEB Last administered on 08:59; Start 11/21/16 at 16:00 Vancomycin HCl/ Sodium Chloride (Vancomycin Inj/ NS 500 ml Inj) 516 ml @ 258.75 mls/ hr Q24H IV Last administered on 11/23/16 12:00; Start 11/22/16 at 12:00 Warfarin Sodium (Coumadin) 1 mg ONCE ONCE PO Last administered on 11/22/16 16 :06; Start 11/22/16 at 16:00; Stop 11/22/16 at 16:01; Status DC Warfarin Sodium (Coumadin) 1.5 mg DAILY@16 PO Last administered on 11/23/16 16 :00; Start 11/23/16 at 16:00; Status Hold Miscellaneous Information SPECIFIC LAB TO BE ... ONCE ONCE XX ; Start at 11:45; Stop 11/25/16 at 11:46 Alprazolam (Xanax) 0.25 mg Q8HR PRN PO ANXIETY Last administered on 11/22/16 13:43; Start 11/22/16 at 11:45; Stop 11/23/16 at 11:50; Status DC Phenol (Chloraseptic [place]) 2 spray Q4HR PRN OROPHARYNG SORE THROAT; Start at 11:45 Furosemide (Lasix Inj) 20 mg STAT ONCE IV Last administered on 11/22/16 18:44 ; Start 11/22/16 at 18:45; Stop 11/22/16 at 18:46; Status DC Lorazepam (Ativan Inj) 0.5 mg STAT ONCE IV Last administered on 11/22/16 18: 44; Start 11/22/16 at 18:45; Stop 11/22/16 at 18:46; Status DC Alprazolam (Xanax) 0.25 mg Q4HR PRN PO ANXIETY Last administered on 11/23/16 17:21; Start 11/23/16 at 12:00 Hydrocortisone Sodium Succinate (SoluCORTEF INJ) 50 mg DAILY IV PUSH Last administered on 11/24/16 09:29; Start 11/24/16 at 09:00 Fluconazole (Diflucan) 100 mg DAILY PO Last administered on 11/24/16 09:30; Start 11/23/16 at 12:45; Stop 11/30/16 at 12:44 Line: Central Venous Catheter Side: Right Location: Femoral A/P Assessment and Plan A/P Acute hypoxemic respiratory failure- improving slowly COPD Possible HCAP Continue with oxygen keep sat >92% Bronchodilator therapy ; scheduled and as needed NIPPV PRN for resp distress Symbicort twice daily pulmonary following. Anxiety/ depression- history of Panic attacks On Escitalopram 10 mg by mouth daily for depression. added Xanax Acetaminophen for fever [place]/morphine for pain management Chronic atrial fibrillation Coronary artery disease status post MD 1987 Cardiomyopathy Congestive heart failure/systolic EF 35-40% 10/16 Hypertension Dyslipidemia Mildly aortic stenosis Severe septic shock 2-D echocardiogram 10/16 revealed EF 35-40% regional hypokinesis. Mild aortic stenosis Echo from 11/14:EF 20% to 25%. Diffuse hypokinesis. Grade 1 diastolic dysfunction. Lisinopril 2.5mg daily will switch to po prednisone. as OP. on Chronic prednisone use 20 milligrams daily.as OP Coreg 6.25 mg by mouth twice a day on hold Continue amiodarone 200 mg by mouth daily for A. fib. Continue atorvastatin 10 mg daily for dyslipidemia Possible healthcare associated pneumonia Continue abx per ID- on Vancomycin and Invanz Pertinent cultures 11/13 - blood cultures : Escherichia coli, Group D Enterococcus, GNR Negative urine Legionella pneumococcal antigens and influenza History of GI bleed Morbid obesity Cholelithiasis Chronic abdominal pain Chronic constipation Diverticulosis On PO heart healthy diet Protonix for GI prophylaxis. Colace/as needed Senokot for bowel regimen EGD from last admission - gastritis bx from antrum, normal endoscopy otherwise , retroflexed revealed no abnormalities, few diverticulosis in the sigmoid, normal surgical anastomosis, no active bleed, small polyp in the ascending colon removed by snare, the colon mucosa was otherwise normal, retroflexed views revealed internal hemorrhoids, small internal hemorrhoids, revealed no abnormalities of the rectum. BPH Hypogonadism Chronic kidney disease stage III HYpokalemia Monitor renal function and electrolytes periodically. Normocytic anemia history of ITP Chronic VKA use At home on Coumadin 2 mg by mouth daily. Monitor CBC/CMP daily.. Daily INRs with pharmacy to manage. Chronically prednisone 20 mg daily for ITP Chronic compression fractures of thoracic vertebrae Chronic low back pain Deconditioning- baseline gets around with a walker continue with pain control and PT. DVT prophylaxis with coumadin. Discharge Planning dc to SNF in 3-4 days. David Pratt MD Nov 24, 2016 10:58
[2016-11-24] MEDS: VANCOMYCIN INJ 1,600 MG in SODIUM CHLORID 0.9% 500 ML INJ 500 ML IV SCH (12:00)
--- NOTE | 2016-11-24 12:02 | HHI.PR ---
Subjective Remarks 76 YOWM with Bilat Pn,COPD,CHF,AF On Abx Feels better Weak, mild sob Cough and congestion Small amount of sp Slept better Objective Vital Signs Vital Signs Date Time Temp Pulse Resp B/P Pulse Ox O2 Delivery O2 Flow Rate FiO2 11/24/16 09:00 95 Nasal Cannula 3.00 11/24/16 08:00 97.7 82 18 122/63 98 11/24/16 07:26 75 11/24/16 04:00 97.0 72 18 101/56 97 11/24/16 00:00 97.4 78 18 118/56 98 11/23/16 20:00 97.5 77 18 109/55 94 11/23/16 19:22 95 Nasal Cannula 3.00 11/23/16 16:00 98.1 90 18 129/58 93 I/O 11/23/16 11/23/16 11/23/16 11/24/16 11/24/16 11/24/16 07:00 15:00 23:00 07:00 15:00 23:00 Intake Total 480 ml 360 ml 120 ml Output Total 600 ml 600 ml 800 ml Balance -120 ml -240 ml -680 ml Intake Oral 480 ml 360 ml 120 ml Output Urine Total 600 ml 600 ml 800 ml # Bowel Movements 3 0 0 Result Diagram: 11/23/16 0600 Objective Remarks GENERAL: Elderly male ,NAD SKIN: Warm and dry. HEAD: Normocephalic. EYES: No scleral icterus. No injection or drainage. NECK: Supple, trachea midline. No JVD or lymphadenopathy. CARDIOVASCULAR: Regular rate and rhythm without murmurs, gallops, or rubs. RESPIRATORY: Breath sounds equal bilaterally. No accessory muscle use. GASTROINTESTINAL: Abdomen soft, non-tender, nondistended. MUSCULOSKELETAL: No cyanosis, + edema. BACK: Nontender without obvious deformity. No CVA tenderness. A/P Assessment and Plan Bilat Infilt HTN COPD CHF AF CAD H/O ITP PLAN: Cont Abx Vanco and Ertapenem Aerosol nebs Mucomyst nebs Symbicort Bid Coumadin 1.5 mg Monitor INR Change to PO Prednisone Bahman Villarreal MD Nov 24, 2016 12:02
--- NOTE | 2016-11-24 12:30 | HHI.IDPN ---
Subjective Subjective Remarks Notes reviewed Temps ok Clinically stable On nasal O2 at 2L Gets easily SOB No new complaint Antibiotics Invanz Vancomycin Diflucan Lines PIV Past Medical History Reviewed Allergies: Coded Allergies: Quinidex Extentab (Verified Allergy, Severe, PLATELETT COUNT DECREASES/ BLINDNESS, 11/02/16) Niacin (Verified Allergy, Intermediate, RASH/ITCHING, 11/02/16) MRI PRECAUTION (Verified Adverse Reaction, Severe, NON MRI COMPATIBLE DEFIB 10/22/15 LRS, 11/02/16) *MDRO Multi-Drug Resistant Organism (Verified Adverse Reaction, Unknown, ESBL, 11/17/16) ESBL E. coli (abd. 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 coli (urine) - 03/08/16, 09/28/16, 10/19/16 ESBL E.Coli (blood)-11/13/16 Objective . Vital Signs Date Time Temp Pulse Resp B/P Pulse Ox O2 Delivery O2 Flow Rate FiO2 11/24/16 09:00 95 Nasal Cannula 3.00 11/24/16 08:00 97.7 82 18 122/63 98 11/24/16 07:26 75 11/24/16 04:00 97.0 72 18 101/56 97 11/24/16 00:00 97.4 78 18 118/56 98 11/23/16 20:00 97.5 77 18 109/55 94 11/23/16 19:22 95 Nasal Cannula 3.00 11/23/16 16:00 98.1 90 18 129/58 93 11/23/16 11/23/16 11/24/16 15:00 23:00 07:00 Intake Total 480 ml 360 ml 120 ml Output Total 600 ml 600 ml 800 ml Balance -120 ml -240 ml -680 ml Intake Oral 480 ml 360 ml 120 ml Output Urine Total 600 ml 600 ml 800 ml # Bowel Movements 3 0 0 . Laboratory Tests Test 11/23/16 06:00 Creatinine 0.84 MG/DL Estimat Glomerular Filtration 89 ML/MIN Rate Imaging Chest X-Ray 11/16/16 0600 Signed Impressions: Service Date/Time: Wednesday, November 16, 2016 03:33 - CONCLUSION: Increasing consolidation and bilateral effusions are suspected. Loc Campbell MD Chest X-Ray 11/14/16 1433 Signed Impressions: Service Date/Time: Monday, November 14, 2016 14:57 - CONCLUSION: 1. Interval placement of left internal jugular central venous line with no pneumothorax. 2. Abnormal opacity remains at the left lung base with probable effusion. Yohan Vera MD Chest X-Ray 11/14/16 1433 Signed Impressions: Service Date/Time: Monday, November 14, 2016 14:57 - CONCLUSION: 1. Interval placement of left internal jugular central venous line with no pneumothorax. 2. Abnormal opacity remains at the left lung base with probable effusion. Yohan Vera MD Abdomen/Pelvis CT 11/14/16 0000 Signed Impressions: Service Date/Time: Monday, November 14, 2016 21:20 - CONCLUSION: 1. Contracted gallbladder with calcified gallstones again noted. 2. Multiple anterior abdominal hernias again noted. 3. Nonspecific, nonobstructive bowel gas. 4. Mild consolidation in the lung bases. Yohan Vera MD CT Angiography 11/13/16 0000 Signed Impressions: Service Date/Time: Sunday, November 13, 2016 16:43 - CONCLUSION: 1. No pulmonary embolus. 2. Emphysematous change in the upper lungs and consolidation or atelectasis in the lower lungs. 3. 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 This finding is unchanged. 4. Multiple compression fractures in the thoracic spine. Salvatore Goddard MD Physical Exam GENERAL: Awake and alert, NAD. SKIN: Cool and dry, no generalized rash HEENT: [place] conjunctivae, no petechia or hemorrhage. No scleral icterus. Moist mucosa, no oral thrush. . NECK: Supple, nontender, no meningeal signs. Line ok CARDIOVASCULAR: Regular rate and rhythm without murmurs. AICD with no evidence of infection. RESPIRATORY: Decreased BS both ling guthrie GASTROINTESTINAL: Abdomen soft, non-tender, nondistended. Bowel sounds are present and normoactive. No guarding. MUSCULOSKELETAL: Extremities without clubbing, cyanosis, or edema. No calf tenderness. NEUROLOGICAL: Grossly non-focal PSYCH: Calm and cooperative : Paz in place, urine clear LINE: PIV Assessment & Plan Remarks IMPRESSION Polymicrobial sepsis on admission, with shock, source - BP better - C/O SOB, and some cough, ?PNA - UA ok - LFT ok - had E coli ESBL+ UTI last September - has AICD, site unremarkable Cardiomyopathy, CAD Burning at paz cath site RECOMMENDATION Continue Invanz Continue Vancomycin Continue Diflucan Monitor progress Abx until 11/26 End date written for Abx Emilia Houston MD Nov 24, 2016 12:30
[2016-11-24] MEDS: ATORVASTATIN 10 MG TAB PO SCH (21:04)
[2016-11-24] MEDS: ALPRAZolam 0.25 MG TAB PO PRN (21:04)
[2016-11-25] VITALS (10 sets, daily range): BP systolic 107–145; BP diastolic 52–73; PULSE 69–94; RESP 16–20; TEMP 97.3–99; O2SAT 91–100
[2016-11-25] MEDS: RESP: ALBUTEROL 2.5 MG/IPRATROPIUM 0.5 MG NEB (SCH) NEB ×3 (04:00→15:34)
[2016-11-25] MEDS: CHLORHEXIDINE GLUCONATE 2 % 1 PACK (2 CLOTHS) TOP SCH (04:00)
[2016-11-25] MEDS: ERTAPENEM INJ 1,000 MG in SODIUM CHLORIDE 0.9% INJ 100 ML IV SCH (04:10)
[2016-11-25] MEDS: INSULIN NovoLIN REGULAR SUPPLEMENTAL SCALE SQ SCH ×4 (05:28→21:33)
[2016-11-25 07:01] LABS: INTERNATIONAL NORMALIZED RATIO 2.8 RATIO; PROTHROMBIN TIME - PATIENT 32.8 SEC (9.8-11.6)
[2016-11-25] MEDS: POTASSIUM CHLORIDE 20 MEQ CONTROLLED RELEASE TAB PO SCH (08:50)
[2016-11-25] MEDS: AMIODARONE 200 MG TAB PO SCH (08:50)
[2016-11-25] MEDS: PANTOPRAZOLE SODIUM 40 MG VIAL IV SCH (08:50)
[2016-11-25] MEDS: CALCIUM/VITAMIN D 250 MG/125 U TAB PO SCH ×2 (08:50→21:32)
[2016-11-25] MEDS: FLUCONAZOLE 100 MG TAB PO SCH (08:50)
[2016-11-25] MEDS: LISINOPRIL 5 MG TAB PO SCH (08:50)
[2016-11-25] MEDS: MULTIVITAMINS/MINERALS THERAPEUTIC TAB PO SCH (08:50)
[2016-11-25] MEDS: DOCUSATE SODIUM 100 MG CAP PO SCH ×2 (08:50→21:32)
[2016-11-25] MEDS: ESCITALOPRAM OXALATE 10 MG TAB PO SCH (08:50)
[2016-11-25] MEDS: SODIUM CHLORIDE 0.9% FLUSH 5 ML FLUSH IV FLUSH SCH ×2 (08:51→21:41)
[2016-11-25] MEDS: predniSONE 20 MG TAB PO SCH ×2 (08:51→21:31)
[2016-11-25] MEDS: SODIUM CHLORIDE 0.9% FLUSH 5 ML FLUSH IVF SCH (08:51)
[2016-11-25] MEDS: ARTIFICIAL TEARS OPTH SOLN 15 ML BTL EACH EYE SCH ×3 (08:52→21:35)
[2016-11-25] MEDS: BUDESONIDE-FORMOTEROL 160/4.5 MCG INHALER INH SCH ×2 (08:52→21:00)
[2016-11-25] MEDS: RESP: ACETYLCYSTEINE 10% 30 ML NEB NEB SCH ×2 (08:53→15:34)
--- NOTE | 2016-11-25 11:08 | HHI.PR ---
Subjective Remarks still with some sob. sob seems to be getting somewhat worse than yesterday. he says that ' he's not seeing any improvement '. no fever. Objective Vitals Vital Signs Date Time Temp Pulse Resp B/P Pulse Ox O2 Delivery O2 Flow Rate FiO2 11/25/16 08:55 97 Nasal Cannula 2.00 11/25/16 08:00 97.3 74 16 124/58 100 11/25/16 04:00 97.6 76 16 119/56 99 11/25/16 00:00 97.3 94 20 107/52 98 11/24/16 20:16 98 Nasal Cannula 3.00 11/24/16 20:04 79 11/24/16 20:02 97.4 88 22 95/61 99 11/24/16 20:00 Nasal Cannula 3.00 11/24/16 20:00 97.4 88 22 95/61 95 11/24/16 16:00 98.6 99 18 97/56 97 11/24/16 12:00 97.0 86 18 131/64 97 I/O 11/24/16 11/24/16 11/24/16 11/25/16 11/25/16 11/25/16 07:00 15:00 23:00 07:00 15:00 23:00 Intake Total 120 ml 480 ml 240 ml 207 ml Output Total 800 ml 800 ml 300 ml 100 ml Balance -680 ml -320 ml -60 ml 107 ml Intake Oral 120 ml 480 ml 240 ml 100 ml IV Total 107 ml Output Urine Total 800 ml 800 ml 300 ml 100 ml # Bowel Movements 0 1 0 0 Result Diagram: 11/23/16599 Imaging Last Impressions Chest X-Ray 11/16/16599 Signed Impressions: Service Date/Time: Wednesday, November 16, 2016 03:33 - CONCLUSION: Increasing consolidation and bilateral effusions are suspected. Loc Campbell MD Abdomen/Pelvis CT 11/14/16 0000 Signed Impressions: Service Date/Time: Monday, November 14, 2016 21:20 - CONCLUSION: 1. Contracted gallbladder with calcified gallstones again noted. 2. Multiple anterior abdominal hernias again noted. 3. Nonspecific, nonobstructive bowel gas. 4. Mild consolidation in the lung bases. Yohan Vera MD CT Angiography 11/13/16 0000 Signed Impressions: Service Date/Time: Sunday, November 13, 2016 16:43 - CONCLUSION: 1. No pulmonary embolus. 2. Emphysematous change in the upper lungs and consolidation or atelectasis in the lower lungs. 3. 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 This finding is unchanged. 4. Multiple compression fractures in the thoracic spine. Salvatore Goddard MD Objective Remarks GENERAL: with mild sob HEENT; no pharyngeal exudate CARDIOVASCULAR: Regular rate and irregular rhythm without murmurs, gallops, or rubs. RESPIRATORY: bilateral wheezing and prolonged expiration. GASTROINTESTINAL: Abdomen soft, non-tender, nondistended. Normal, active bowel sounds MUSCULOSKELETAL: Extremities without clubbing, cyanosis, or edema. NEURO: Alert & Oriented x4 to person, place, time, situation. Moves all ext x4 Procedures central line placement Medications and IVs Current Medications Norepinephrine Bitartrate (Levophed-Dextrose Drip) 250 ml @ 0 mls/hr TITRATE IV Last administered on 11/15/16 01:13; Start 11/13/16 at 12:15; Stop 11/17/16 at 08:11; Status DC Terbutaline Sulfate 1 mg 1 mg UNSCH PRN SQ For Extravasation; Start 11/13/16 at 12:15 Dopamine HCl/ Dextrose (DOPamine INJ PREMIX) 500 ml @ 0 mls/hr TITRATE IV ; Start 11/13/16 at 12:15; Stop 11/15/16 at 14:05; Status DC Terbutaline Sulfate 1 mg 1 mg UNSCH PRN SQ For Extravasation; Start 11/13/16 at 12:15; Status Cancel Vancomycin HCl 1000 mg/Sodium Chloride 250 ml @ 250 mls/hr ONCE ONCE IV ; Start 11/13/16 at 12:45; Stop 11/13/16 at 13:44; Status DC Piperacillin Sod/ Tazobactam Sod 50 ml @ 100 mls/hr ONCE ONCE IV Last administered on 11/13/16 13:13; Start 11/13/16 at 12:45; Stop 11/13/16 at 13:14 ; Status DC Sodium Chloride 1,000 ml @ 999 mls/hr BOLUS ONCE IV Last administered on 11/13 14:04; Start 11/13/16 at 13:15; Stop 11/13/16 at 14:15; Status DC Sodium Chloride (NS 1000 ml Inj) 1,000 ml @ 84 mls/hr [id number] IV Last administered on 11/15/16 01:13; Start 11/13/16 at 13:13; Stop 11/15/16 at 14:00 ; Status DC IV Flush (NS Flush) 2 ml UNSCH PRN IV FLUSH FLUSH AFTER USING IV ACCESS Last administered on 11/15/16 08:12; Start 11/13/16 at 13:15 IV Flush (NS Flush) 2 ml BID IV FLUSH ; Start 11/13/16 at 21:00; Stop 11/13/16 at 21:00; Status DC Acetaminophen (Tylenol) 650 mg Q6H PRN PO FEVER >101F; Start 11/13/16 at 13:15 Acetaminophen/ Hydrocodone Bitart ([place] 5-325 Mg) 1 tab Q4H PRN PO PAIN SCALE 1 TO 5 Last administered on 11/13/16 16:00; Start 11/13/16 at 13:15 Morphine Sulfate (Morphine Inj) 2 mg Q2H PRN IV PAIN SCALE 6 TO 10 Last administered on 11/16/16 06:54; Start 11/13/16 at 13:15 Pantoprazole Sodium (Protonix Inj) 40 mg DAILY IV Last administered on 08:50; Start 11/14/16 at 09:00 Artificial Tears (Tears Naturale Opth Soln) 1 drop TID EACH EYE Last administered on 11/25/16 08:52; Start 11/13/16 at 18:00 Ondansetron HCl (Zofran Inj) 4 mg Q6H PRN IV NAUSEA OR VOMITING; Start at 13:15 Docusate Sodium (Colace) 100 mg BID PO Last administered on 11/25/16 08:50; Start 11/13/16 at 21:00 Sennosides (Senokot) 17.2 mg Q12H PRN PO CONSTIPATION; Start 11/13/16 at 13:15 Albuterol/ Ipratropium (Duoneb Neb) 1 ampule Q6HR NEB INH Last administered on 11/17/16 15:46; Start 11/13/16 at 16:00; Stop 11/17/16 at 16:00; Status DC Albuterol Sulfate (Albuterol Neb) 2.5 mg Q2HR NEB PRN INH SOB/WHEEZING Last administered on 11/22/16 18:08; Start 11/13/16 at 13:15 Miscellaneous Information 1 Q361D XX ; Start 11/13/16 at 13:15; Stop 11/13/16 at 16:59; Status DC Chlorhexidine Gluconate (Chlorhexidine 2% Cloth) 3 pack Taper DAILY@04 TOP ; Start 11/14/16 at 04:00; Stop 11/14/16 at 04:00; Status DC Chlorhexidine Gluconate (Chlorhexidine 2% Cloth) 3 pack UNSCH PRN TOP HYGIENIC CARE; Start 11/13/16 at 13:15; Stop 11/13/16 at 16:59; Status DC Dextrose (D50w (Vial) Inj) 25 ml UNSCH PRN IV PUSH HYPOGLYCEMIA-SEE COMMENTS; Start 11/13/16 at 13:15 Glucagon (Glucagon Inj) 1 mg UNSCH PRN OTHER HYPOGLYCEMIA-SEE COMMENTS; Start 11/13/16 at 13:15 Insulin Human Regular (NovoLIN R SUPPLEMENTAL SCALE) 1 Q6HR SQ Last administered on 11/15/16 11:36; Start 11/13/16 at 18:00; Stop 11/15/16 at 14:01 ; Status DC Amiodarone HCl (Cordarone) 200 mg DAILY PO Last administered on 11/25/16 08:50 ; Start 11/14/16 at 09:00 Atorvastatin Calcium (Lipitor) 10 mg HS PO Last administered on 11/24/16 21:04 ; Start 11/13/16 at 21:00 Budesonide/ Formoterol Fumarate (Symbicort 160-4.5 Inh) 2 puff Q12HR INH Last administered on 11/25/16 08:52; Start 11/13/16 at 21:00 Escitalopram Oxalate (Lexapro) 10 mg DAILY PO Last administered on 11/25/16 08 :50; Start 11/14/16 at 09:00 Multivitamins/ Minerals Therapeutic (Theragran M Tab) 1 tab DAILY PO Last administered on 11/25/16 08:50; Start 11/14/16 at 09:00 Tamsulosin HCl (Flomax) 0.4 mg HS PO ; Start 11/13/16 at 21:00; Status Hold Calcium/Vitamin D 2 mg 2 mg BID PO Last administered on 11/13/16 20:50; Start 11/13/16 at 21:00; Stop 11/14/16 at 09:09; Status DC Magnesium Sulfate/ Dextrose (Magnesium Sulfate 1 Gm Premix) 100 ml @ 100 mls/ hr Q1H IV Last administered on 11/13/16 14:30; Start 11/13/16 at 13:30; Stop 11/13/16 at 15:29; Status DC Dextrose 25 ml 25 ml ONCE ONCE IV PUSH Last administered on 11/13/16 13:58; Start 11/13/16 at 13:45; Stop 11/13/16 at 13:46; Status DC Dextrose/Sodium Chloride 1,000 ml @ 100 mls/hr Q10H IV ; Start 11/13/16 at 13: 45; Stop 11/13/16 at 13:50; Status DC Vasopressin 40 units/Dextrose 100 ml @ 1.5 mls/hr Q24H IV Last administered on 11/13/16 20:49; Start 11/13/16 at 16:00; Stop 11/17/16 at 08:12; Status DC Sodium Chloride (NS 1000 ml Inj) 1,000 ml @ 999 mls/hr BOLUS ONCE IV Last administered on 11/13/16 16:00; Start 11/13/16 at 16:00; Stop 11/13/16 at 17:00 ; Status DC Hydrocortisone Sodium Succinate 100 mg 100 mg Q8H IV PUSH Last administered on 11/15/16 08:11; Start 11/13/16 at 16:00; Stop 11/15/16 at 14:01; Status DC Sodium Phosphate 30 mmol/Sodium Chloride 260 ml @ 43.333 mls/ hr ONCE ONCE IV Last administered on 11/13/16 15:45; Start 11/13/16 at 15:45; Stop 11/13/16 at 21:44; Status DC Magnesium Sulfate/ Dextrose 100 ml @ 100 mls/hr Q1H IV Last administered on 17:00; Start 11/13/16 at 16:00; Stop 11/13/16 at 17:59; Status DC Pharmacy Profile Note 0 ml @ 0 mls/hr UNSCH OTHER ; Start 11/13/16 at 15:45; Stop 11/26/16 at 15:00 Potassium Chloride 100 ml @ 50 mls/hr Q2H PRN IV For Potassium 2.8 - 3.2 mEq/ L Last administered on 11/15/16 08:11; Start 11/13/16 at 16:00; Stop 11/21/16 at 07:53; Status DC Potassium Chloride 100 ml @ 50 mls/hr Q2H PRN IV For Potassium 2.8 - 3.2 mEq/L ; Start 11/13/16 at 16:00; Stop 11/21/16 at 07:53; Status DC Potassium Chloride 100 ml @ 25 mls/hr UNSCH PRN IV For Potassium 3.3 - 3.5 mEq /L; Start 11/13/16 at 16:00; Stop 11/21/16 at 07:53; Status DC Potassium Chloride 100 ml @ 50 mls/hr Q2H PRN IV For Potassium 3.3 - 3.5 mEq/L ; Start 11/13/16 at 16:00; Stop 11/21/16 at 07:53; Status DC Magnesium Sulfate/ Sodium Chloride (Magnesium Sulfate Inj/NS Inj) 100 ml @ 50 mls/hr UNSCH PRN IV For Magnesium 0.9 - 1.1 mg/dL; Start 11/13/16 at 16:00; Stop 11/21/16 at 07:53; Status DC Magnesium Oxide 800 mg 800 mg UNSCH PRN PO For Magnesium 1.2 - 1.6 mg/dL; Start 11/13/16 at 16:00; Stop 11/21/16 at 07:53; Status DC Magnesium Sulfate/ Sodium Chloride (Magnesium Sulfate Inj/NS Inj) 100 ml @ 50 mls/hr UNSCH PRN IV For Magnesium 1.2 - 1.6 mg/dL; Start 11/13/16 at 16:00; Stop 11/21/16 at 07:53; Status DC Potassium Phosphate 2000 mg 2,000 mg Q4H PRN PO For Phosphorus < 2.5 mg/dL; Start 11/13/16 at 16:00; Stop 11/21/16 at 07:53; Status DC Sodium Phosphate/ Sodium Chloride (Sodium Phosphate Inj/NS 250 ml Inj) 250 ml @ 42 mls/hr UNSCH PRN IV For Phosphorus < 2.5 mg/dL Last administered on 06:39; Start 11/13/16 at 16:00; Stop 11/21/16 at 07:53; Status DC Potassium Phosphate 2000 mg 2,000 mg UNSCH PRN PO/TUBE SEE LABEL COMMENTS; Start 11/13/16 at 15:52; Stop 11/21/16 at 07:53; Status DC Potassium Phosphate/Sodium Chloride (Potassium Phosphate Inj/NS 250 ml Inj) 260 ml @ 42 mls/hr UNSCH PRN IV SEE LABEL COMMENTS Last administered on 11/20/16 00:47; Start 11/13/16 at 15:52; Stop 11/21/16 at 07:53; Status DC IV Flush (NS Flush) 2 ml UNSCH PRN IV FLUSH FLUSH AFTER USING IV ACCESS; Start 11/13/16 at 16:30; Stop 11/13/16 at 16:54; Status DC IV Flush 2 ml 2 ml BID IV FLUSH Last administered on 11/25/16 08:51; Start at 21:00 Piperacillin Sod/ Tazobactam Sod 100 ml @ 200 mls/hr Q6H IV Last administered on 11/14/16 08:38; Start 11/13/16 at 20:00; Stop 11/14/16 at 13:39; Status DC Azithromycin/ Sodium Chloride (Zithromax Inj/ NS 250 ml Inj) 250 ml @ 250 mls/ hr Q24H IV Last administered on 11/14/16 18:21; Start 11/13/16 at 18:00; Stop 11/15/16 at 08:43; Status DC Miscellaneous Information 1 Q361D XX ; Start 11/13/16 at 16:30 Chlorhexidine Gluconate (Chlorhexidine 2% Cloth) Taper DAILY@04 TOP Last administered on 11/19/16 04:00; Start 11/14/16 at 04:00; Stop 11/10/17 at 03:59 Chlorhexidine Gluconate 3 pack 3 pack UNSCH PRN TOP HYGIENIC CARE; Start at 16:30 Pharmacy Profile Note (Coumadin Consult Pharmacy) 0 ml @ 0 mls/hr UNSCH OTHER ; Start 11/13/16 at 16:30 Iohexol (Omnipaque 350 Inj) 75 ml STK-MED ONCE IV Last administered on 17:00; Start 11/13/16 at 17:00; Stop 11/13/16 at 17:01; Status DC Warfarin Sodium 1 mg 1 mg DAILY@16 PO Last administered on 11/13/16 18:00; Start 11/13/16 at 18:00; Stop 11/14/16 at 15:07; Status DC Vancomycin HCl 1000 mg/Sodium Chloride 250 ml @ 250 mls/hr ONCE ONCE IV Last administered on 11/13/16 21:40; Start 11/13/16 at 21:30; Stop 11/13/16 at 22:29 ; Status DC Vancomycin HCl/ Sodium Chloride (Vancomycin Inj/ NS 250 ml Inj) 258 ml @ 250 mls/hr ONCE ONCE IV Last administered on 11/14/16 00:40; Start 11/14/16 at 00 :00; Stop 11/14/16 at 01:01; Status DC Calcium/Vitamin D 500 mg 500 mg BID PO Last administered on 11/25/16 08:50; Start 11/14/16 at 21:00 Vancomycin HCl/ Sodium Chloride (Vancomycin Inj/ NS 500 ml Inj) 517.5 ml @ 258.75 mls/ hr Q24H IV Last administered on 11/21/16 14:54; Start 11/14/16 at 12:00; Stop 11/21/16 at 18:51; Status DC Miscellaneous Information SPECIFIC LAB TO BE GONZALEZ... ONCE ONCE XX Last administered on 11/17/16 11:45; Start 11/17/16 at 11:45; Stop 11/17/16 at 11:46 ; Status DC Miscellaneous Medication (ASP Crit: Doc ESBL, MDR A baumannii or P aer) 1 UNSCH X1 PRN XX PHARMACY DOCUMENTATION; Start 11/14/16 at 13:30; Stop 11/15/16 at 13: 29; Status DC Miscellaneous Medication 1 1 UNSCH X1 PRN XX PHARMACY DOCUMENTATION; Start at 13:30; Stop 11/15/16 at 13:29; Status DC Meropenem/Sodium Chloride (Merrem Inj/NS Inj) 100 ml @ 200 mls/hr Q8H IV Last administered on 11/18/16 05:56; Start 11/14/16 at 14:00; Stop 11/18/16 at 09:45 ; Status DC IV Flush (NS Flush) DAILY IVF Last administered on 11/25/16 08:51; Start at 09:00 IV Flush (NS Flush) UNSCH PRN IVF SEE PROTOCOL; Start 11/14/16 at 14:45 Diatrizoate Meglum/ Diatrizoate Sod (Md Brown Liq) 18 ml ONCE ONCE PO Last administered on 11/14/16 16:24; Start 11/14/16 at 14:45; Stop 11/14/16 at 14:46; Status DC Warfarin Sodium (Coumadin) 2 mg DAILY@16 PO Last administered on 11/15/16 17: 24; Start 11/14/16 at 16:00; Stop 11/16/16 at 08:33; Status DC Iohexol (Omnipaque 350 Inj) 93 ml STK-MED ONCE IV Last administered on 21:25; Start 11/14/16 at 21:25; Stop 11/14/16 at 21:26; Status DC Azithromycin (Zithromax) 500 mg DAILY PO Last administered on 11/16/16 08:38; Start 11/15/16 at 09:00; Stop 11/17/16 at 09:26; Status DC Hydrocortisone Sodium Succinate (SoluCORTEF INJ) 50 mg Q8H IV PUSH Last administered on 11/17/16 00:00; Start 11/15/16 at 16:00; Stop 11/17/16 at 08:12 ; Status DC Insulin Human Regular (NovoLIN R SUPPLEMENTAL SCALE) 1 ACHS SQ Last administered on 11/24/16 16:00; Start 11/15/16 at 16:00 Warfarin Sodium (Coumadin) 1.5 mg DAILY@16 PO Last administered on 11/21/16 16 :32; Start 11/16/16 at 16:00; Stop 11/22/16 at 10:17; Status DC Bumetanide (Bumex Inj) 1 mg ONCE ONCE IV PUSH Last administered on 11/16/16 09:17; Start 11/16/16 at 09:00; Stop 11/16/16 at 09:12; Status DC Hydrocortisone Sodium Succinate (SoluCORTEF INJ) 50 mg Q12H IV PUSH Last administered on 11/23/16 10:21; Start 11/17/16 at 21:00; Stop 11/23/16 at 11:53 ; Status DC Bumetanide (Bumex Inj) 1 mg ONCE ONCE IV PUSH Last administered on 11/17/16 09:46; Start 11/17/16 at 09:15; Stop 11/17/16 at 09:26; Status DC Bumetanide (Bumex Inj) 1 mg ONCE ONCE IV PUSH Last administered on 11/18/16 10:24; Start 11/18/16 at 10:00; Stop 11/18/16 at 10:16; Status DC Lisinopril (Prinivil) 2.5 mg DAILY PO Last administered on 11/25/16 08:50; Start 11/18/16 at 10:00 Miscellaneous (Pill Splitter) 1 ea UNSCH PRN OTHER SEE LABEL COMMENTS Last administered on 11/18/16 16:45; Start 11/18/16 at 09:30 Miscellaneous Medication (ASP Crit: Doc ESBL, MDR A baumannii or P aer) 1 UNSCH X1 PRN XX PHARMACY DOCUMENTATION; Start 11/18/16 at 09:45; Stop 11/19/16 at 09: 44; Status DC Miscellaneous Medication 1 1 UNSCH X1 PRN XX PHARMACY DOCUMENTATION; Start at 09:45; Stop 11/19/16 at 09:44; Status DC Ertapenem 1000 mg/ Sodium Chloride 100 ml @ 200 mls/hr Q24H IV ; Start at 11:00; Stop 11/19/16 at 03:21; Status DC Ertapenem/Sodium Chloride (INVanz INJ/NS Inj) 100 ml @ 200 mls/hr Q24H IV Last administered on 11/25/16 04:10; Start 11/19/16 at 04:00; Stop 11/26/16 at 23:00 Warfarin Sodium (Coumadin) 0.5 mg ONCE PO Last administered on 11/19/16 17:24 ; Start 11/19/16 at 16:00; Stop 11/19/16 at 21:00; Status DC Warfarin Sodium (Coumadin) 0.5 mg ONCE PO Last administered on 11/20/16 16:34 ; Start 11/20/16 at 16:00; Stop 11/20/16 at 21:00; Status DC Miscellaneous Information SPECIFIC LAB TO BE DRAWN:VANCOMYCIN TROUGH DATE TO... ONCE ONCE XX Last administered on 11/21/16 14:54; Start 11/21/16 at 11:45; Stop 11/21/16 at 11:46; Status DC Potassium Chloride (KCl) 40 meq ONCE ONCE PO Last administered on 11/20/16 18 :45; Start 11/20/16 at 18:00; Stop 11/20/16 at 18:21; Status DC Potassium Chloride (KCl) 20 meq DAILY PO Last administered on 11/25/16 08:50; Start 11/21/16 at 09:00 Albuterol/ Ipratropium (Duoneb Neb) 1 ampule Q4HR NEB NEB ; Start 11/21/16 at 12:00; Stop 11/21/16 at 12:36; Status DC Acetylcysteine (Mucomyst 10% Neb) 2 ml Q8HR NEB NEB Last administered on 08:53; Start 11/21/16 at 16:00 Albuterol/ Ipratropium 1 ampule 1 ampule Q6HR NEB NEB Last administered on 08:52; Start 11/21/16 at 16:00 Vancomycin HCl/ Sodium Chloride (Vancomycin Inj/ NS 500 ml Inj) 516 ml @ 258.75 mls/ hr Q24H IV Last administered on 11/24/16 12:00; Start 11/22/16 at 12:00; Stop 11/26/16 at 15:00 Warfarin Sodium (Coumadin) 1 mg ONCE ONCE PO Last administered on 11/22/16 16 :06; Start 11/22/16 at 16:00; Stop 11/22/16 at 16:01; Status DC Warfarin Sodium (Coumadin) 1.5 mg DAILY@16 PO Last administered on 11/23/16 16 :00; Start 11/23/16 at 16:00; Status Hold Miscellaneous Information SPECIFIC LAB TO BE GONZALEZ... ONCE ONCE XX ; Start at 11:45; Stop 11/25/16 at 11:46; Status Cancel Alprazolam (Xanax) 0.25 mg Q8HR PRN PO ANXIETY Last administered on 11/22/16 13:43; Start 11/22/16 at 11:45; Stop 11/23/16 at 11:50; Status DC Phenol (Chloraseptic [place]) 2 spray Q4HR PRN OROPHARYNG SORE THROAT; Start at 11:45 Furosemide (Lasix Inj) 20 mg STAT ONCE IV Last administered on 11/22/16 18:44 ; Start 11/22/16 at 18:45; Stop 11/22/16 at 18:46; Status DC Lorazepam (Ativan Inj) 0.5 mg STAT ONCE IV Last administered on 11/22/16 18: 44; Start 11/22/16 at 18:45; Stop 11/22/16 at 18:46; Status DC Alprazolam (Xanax) 0.25 mg Q4HR PRN PO ANXIETY Last administered on 11/24/16 21:04; Start 11/23/16 at 12:00 Hydrocortisone Sodium Succinate (SoluCORTEF INJ) 50 mg DAILY IV PUSH Last administered on 11/24/16 09:29; Start 11/24/16 at 09:00; Stop 11/24/16 at 10:59 ; Status DC Fluconazole (Diflucan) 100 mg DAILY PO Last administered on 11/25/16 08:50; Start 11/23/16 at 12:45; Stop 11/30/16 at 12:44 Prednisone (Deltasone) 20 mg BID PO Last administered on 11/25/16 08:51; Start 11/25/16 at 09:00 Line: Central Venous Catheter Side: Right Location: Femoral A/P Assessment and Plan A/P Acute hypoxemic respiratory failure- sob is worse today. COPD Possible HCAP Continue with oxygen keep sat >92% Bronchodilator therapy ; scheduled and as needed NIPPV PRN for resp distress Symbicort twice daily pulmonary following. Anxiety/ depression- history of Panic attacks On Escitalopram 10 mg by mouth daily for depression. added Xanax Acetaminophen for fever [place]/morphine for pain management Chronic atrial fibrillation Coronary artery disease status post HI 1987 Cardiomyopathy Congestive heart failure/systolic EF 35-40% 10/16 Hypertension Dyslipidemia Mildly aortic stenosis Severe septic shock 2-D echocardiogram 10/16 revealed EF 35-40% regional hypokinesis. Mild aortic stenosis Echo from 11/14:EF 20% to 25%. Diffuse hypokinesis. Grade 1 diastolic dysfunction. Lisinopril 2.5mg daily switched to po prednisone. as OP. on Chronic prednisone use 20 milligrams daily.as OP Coreg 6.25 mg by mouth twice a day on hold Continue amiodarone 200 mg by mouth daily for A. fib. Continue atorvastatin 10 mg daily for dyslipidemia Possible healthcare associated pneumonia Continue abx per ID- on Vancomycin and Invanz Pertinent cultures 11/13 - blood cultures : Escherichia coli, Group D Enterococcus, GNR Negative urine Legionella pneumococcal antigens and influenza repeat CXR today. History of GI bleed Morbid obesity Cholelithiasis Chronic abdominal pain Chronic constipation Diverticulosis On PO heart healthy diet Protonix for GI prophylaxis. Colace/as needed Senokot for bowel regimen EGD from last admission - gastritis bx from antrum, normal endoscopy otherwise , retroflexed revealed no abnormalities, few diverticulosis in the sigmoid, normal surgical anastomosis, no active bleed, small polyp in the ascending colon removed by snare, the colon mucosa was otherwise normal, retroflexed views revealed internal hemorrhoids, small internal hemorrhoids, revealed no abnormalities of the rectum. BPH Hypogonadism Chronic kidney disease stage III HYpokalemia Monitor renal function and electrolytes periodically. Normocytic anemia history of ITP Chronic VKA use At home on Coumadin 2 mg by mouth daily. Monitor CBC/CMP daily.. Daily INRs with pharmacy to manage. Chronically prednisone 20 mg daily for ITP Chronic compression fractures of thoracic vertebrae Chronic low back pain Deconditioning- baseline gets around with a walker continue with pain control and PT. DVT prophylaxis with coumadin. discussed with the patient in detail; will change the code status to DNR and will consult palliative care per our discussion. David Pratt MD Nov 25, 2016 11:08
[2016-11-25] MEDS ORDERED: PHARMACY ORDERED LAB XX ONE (11:45)
--- NOTE | 2016-11-25 12:04 | PD.CONS ---
Consult Service Palliative Care Consult Requested By Dr Pratt Primary Care Physician Srinivas Mehta MD Reason for Consultation a. To assist with evaluation and management of symptoms including: Dyspnea, anxiety, malnutrition b. To assist medical decision maker(s) with: better understanding of current medical conditions; weighing benefits/burdens of medical treatment options; making medical treatment decisions. HPI History of Present Illness This 76-year-old patient presented to the ED via EMS from his nursing facility on 11/13/16, for respiratory distress. Patient found to have dyspnea, fever onset that morning. Patient just recently admitted and discharged for GI bleed 5 days prior, had been back on his Coumadin and discharged back to nursing facility. Facility reported axillary temperature 102, treated with nonrebreather via EMS. * At ED arrival notes patient unable to provide additional history, lethargic and moaning. WBC unremarkable 7.9. CXR =Cardiomegaly with mild left basilar atelectasis. No infiltrate or effusion. Lactic acid 1.8. UA negative. INR 1.9. Hypotensive 90s systolic. Treated with IV fluid bolus in the ED. Initiated on BiPAP in the ED. Started on Levophed. Vancomycin, Zosyn given. ED physician notes discussion with family and POA, patient full code. Central line was placed. He was admitted for further evaluation and management of sepsis, acute respiratory failure. Mosher culture sent. CT chest neg PE. Emphysematous changes upper lungs, multiple compression fractures thoracic spine * ID consulted 11/14 regarding blood cultures with gram-negative rods, gram- positive cocci //as meropenem, continue vancomycin, repeat cultures and LFTs, ultrasound kidney * 11/16- still on and off of pressors, awake and alert following commands. Tolerating nasal cannula. Abdomen pelvis CT= 1. Contracted gallbladder with calcified gallstones again noted. 2. Multiple anterior abdominal hernias again noted. 3. Nonspecific, nonobstructive bowel gas. 4. Mild consolidation in the lung bases. * 11/18 continues to be on and off of pressors, tolerating O2 via nasal cannula. Critical care signed off. Patient to transfer out of ICU. * 11/22pulmonology consulted--notes continued bibasilar pulmonary infiltrates with atelectasis, deconditioning, basilar pneumonia resolving with sepsis. Possible sleep apnea. Continue nebulizers, I assess, EZPap, Mucomyst, follow CXR, continue PT. Bedside PFT to be done when stable. * 11/25patient stable, discharge planning in process--patient expected to return to [facility]. Palliative care consulted to assist with clarification of goals of treatment. CXR= persistent bilateral effusions with code committed elected changes, unchanged. No new labs today. Additional history per review of EMR: Patient noted with multiple recent admissions this year, == lower GI bleed, hypovolemic shock, coagulopathy == CHF, pneumonia, dyspnea == COPD exacerbation Patient seen in room with Maty Monk [employer] medical student. Initially seen with no family present, his niece arrives as we are concluding visit. Patient is sleeping arouses for exam however for the most part keeps his eyes closed even when talking with me. He is lethargic, he is short of breath at rest, and this increases with any conversation. He does subjectively indicate that his breathing actually feels a little bit improved during hospital course compared to the usual level of dyspnea. Limited discussion with him, to the point at which he indicated he was tired and did not wish to talk any further however he was amenable to meeting again tomorrow when his niece and his partner could be here. Function/Cognitive Trajectory Has been in [facility] since October 06 discharge, ambulatory with a rolling walker with assist. Some recent general decline in activity with multiple hospitalizations and rehabilitation placement. Previously lived at home with his niece and partner before nursing facility. Apparently niece has recently moved in with them to assist in caring for patient. Review of Systems ROS Limitations: Other (limited by patient willingness to participate) Constitutional: COMPLAINS OF: Fatigue, Fever Respiratory: COMPLAINS OF: Shortness of breath (chronic), DENIES: Cough Cardiovascular: COMPLAINS OF: Dyspnea on Exertion, Lower Extremity Edema, DENIES: Chest pain Gastrointestinal: COMPLAINS OF: Abdominal pain (intermittent lower abdominal pain), DENIES: Nausea, Vomiting, Difficulty Swallowing Neurologic: DENIES: Headache Psychiatric: COMPLAINS OF: Anxiety, DENIES: Hallucinations Past Family Social History Coded Allergies: Quinidex Extentab (Verified Allergy, Severe, PLATELETT COUNT DECREASES/ BLINDNESS, 11/02/16) Niacin (Verified Allergy, Intermediate, RASH/ITCHING, 11/02/16) MRI PRECAUTION (Verified Adverse Reaction, Severe, NON MRI COMPATIBLE DEFIB 10/22/15 LRS, 11/02/16) *MDRO Multi-Drug Resistant Organism (Verified Adverse Reaction, Unknown, ESBL, 11/17/16) ESBL E. coli (abd. 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 coli (urine) - 03/08/16, 09/28/16, 10/19/16 ESBL E.Coli (blood)-11/13/16 Past Medical History Chronic abdominal pain Hypogonadism hypertension Morbid obesity right lower extreme DVT 2010 Chronic kidney disease Anticoagulation Anxiety disorder Coronary artery disease-2-D echocardiogram 10/16= EF 35-40% regional hypokinesis. Mild aortic stenosis Chronic atrial fibrillation Chronic low back pain Cardiomyopathy Cholelithiasis Chronic compression fractures thoracic vertebrae Chronic constipation COPD by diagnosis Depression Diverticulosis Hypertension Dyslipidemia History of ITP Macrocytosis CO TERRENCE Esophagitis . Past Surgical History EG= gastritis bx from antrum, normal endoscopy otherwise, retroflexed revealed no abnormalities, few diverticulosis in the sigmoid, normal surgical anastamosis, no active bleed, small polyp in the ascending colon removed by snare, the colon mucosa was otherwise normal, retroflexed views revealed internal hemorrhoids, small internal hemorrhoids, revealed no abnormalities of the rectum. AICD placement with battery replacement 2015 Pilonidal cyst resection Colon resection with colostomy for diverticulitis with colon perforation with takedown diverting colostomy-2014 Cataract . Reported Medications Protonix (Pantoprazole Sodium) 40 Mg Tab 40 Mg PO DAILY Dok (Docusate Sodium) 100 Mg Cap 100 Mg PO Q12H Hydrocodone-Acetaminophen 5-300 Mg Tab 1 Tab PO Q6HR PRN Clonazepam 0.5 Mg Tab 0.5 Mg PO BID Warfarin 2 Mg Tab 2 Mg PO DAILY Duoneb (Ipratropium-Albuterol Neb) 0.5-2.5 Mg/3 Ml Neb 1 Nebule INH Q6HR NEB PRN Coreg (Carvedilol) 12.5 Mg Tab 6.25 Mg PO BID 30 Days Symbicort Inh (Budesonide/Formoterol Fumarate) 160-4.5 Mcg/Act Aero 2 Puff INH Q12HR Calcium 500+D (Calcium Carbonate-Cholecalciferol) 500-200 Mg-Unit Tab 1 Tab PO BID Prednisone 20 Mg Tab 20 Mg PO DAILY Thera-M (Multiple Vitamins W/ Minerals) 1 Tab 1 Tab PO DAILY Ventolin Hfa 18 GM Inh (Albuterol Sulfate) 90 Mcg/Act Aer 2 Puff INH Q4HR PRN Tamsulosin (Tamsulosin HCl) 0.4 Mg Cap 0.4 Mg PO HS Omeprazole 20 Mg Tab 20 Mg PO DAILY Klor-Con M20 (Potassium Chloride Microencaps) 20 Meq Tab 20 Meq PO Q12HR Furosemide 40 Mg Tab 40 Mg PO DAILY Escitalopram (Escitalopram Oxalate) 10 Mg Tab 10 Mg PO DAILY Atorvastatin (Atorvastatin Calcium) 10 Mg Tab 10 Mg PO HS Amiodarone (Amiodarone HCl) 200 Mg Tab 200 Mg PO DAILY Current Medications Medications (Trade) Dose Ordered Sig/Yasmeen Route Start Time Stop Time Status Last Admin (Brethine Inj) 1 mg UNSCH PRN SQ 11/13/16 12:15 (NS Flush) 2 ml UNSCH PRN IV FLUSH 11/13/16 13:15 11/15/16 08:12 (Tylenol) 650 mg Q6H PRN PO 11/13/16 13:15 (Canton 5-325 Mg) 1 tab Q4H PRN PO 11/13/16 13:15 11/13/16 16:00 (Morphine Inj) 2 mg Q2H PRN IV 11/13/16 13:15 11/16/16 06:54 (Protonix Inj) 40 mg DAILY IV 11/14/16 09:00 11/25/16 08:50 (Tears Naturale Opth Soln) 1 drop TID EACH EYE 11/13/16 18:00 11/25/16 08:52 (Zofran Inj) 4 mg Q6H PRN IV 11/13/16 13:15 (Colace) 100 mg BID PO 11/13/16 21:00 11/25/16 08:50 (Senokot) 17.2 mg Q12H PRN PO 11/13/16 13:15 (D50w (Vial) Inj) 25 ml UNSCH PRN IV PUSH 11/13/16 13:15 (Glucagon Inj) 1 mg UNSCH PRN OTHER 11/13/16 13:15 (Cordarone) 200 mg DAILY PO 11/14/16 09:00 11/25/16 08:50 (Lipitor) 10 mg HS PO 11/13/16 21:00 11/24/16 21:04 (Symbicort 160-4.5 Inh) 2 puff Q12HR INH 11/13/16 21:00 11/25/16 08:52 (Lexapro) 10 mg DAILY PO 11/14/16 09:00 11/25/16 08:50 (Theragran M Tab) 1 tab DAILY PO 11/14/16 09:00 11/25/16 08:50 Tamsulosin HCl 0.4 mg 0.4 mg HS PO 11/13/16 21:00 Hold (Vancomycin Consult Pharmacy) 0 ml @ 0 mls/hr UNSCH OTHER 11/13/16 15:45 11/26/16 15:00 (NS Flush) 2 ml BID IV FLUSH 11/13/16 21:00 11/25/16 08:51 Miscellaneous Information 1 Q361D XX 11/13/16 16:30 (Chlorhexidine 2% Cloth) Taper DAILY@04 TOP 11/14/16 04:00 11/10/17 03:59 11/19/16 04:00 Chlorhexidine Gluconate 3 pack 3 pack UNSCH PRN TOP 11/13/16 16:30 (Coumadin Consult Pharmacy) 0 ml @ 0 mls/hr UNSCH OTHER 11/13/16 16:30 (Oscal-D 250-125) 500 mg BID PO 11/14/16 21:00 11/25/16 08:50 (NS Flush) DAILY IVF 11/15/16 09:00 11/25/16 08:51 (NS Flush) UNSCH PRN IVF 11/14/16 14:45 (NovoLIN R SUPPLEMENTAL SCALE) 1 ACHS SQ 11/15/16 16:00 11/24/16 16:00 (Prinivil) 2.5 mg DAILY PO 11/18/16 10:00 11/25/16 08:50 Miscellaneous 1 ea 1 ea UNSCH PRN OTHER 11/18/16 09:30 11/18/16 16:45 (INVanz INJ/NS Inj) 100 ml @ 200 mls/hr Q24H IV 11/19/16 04:00 11/26/16 23:00 11/25/16 04:10 Potassium Chloride 20 meq 20 meq DAILY PO 11/21/16 09:00 11/25/16 08:50 (Vancomycin Inj/ NS 500 ml Inj) 516 ml @ 258.75 mls/ hr Q24H IV 11/22/16 12:00 11/26/16 15:00 11/24/16 12:00 (Coumadin) 1.5 mg DAILY@16 PO 11/23/16 16:00 Hold 11/23/16 16:00 (Chloraseptic Arvilla) 2 spray Q4HR PRN OROPHARYNG 11/22/16 11:45 (Xanax) 0.25 mg Q4HR PRN PO 11/23/16 12:00 11/24/16 21:04 (Diflucan) 100 mg DAILY PO 11/23/16 12:45 11/30/16 12:44 11/25/16 08:50 (Deltasone) 20 mg BID PO 11/25/16 09:00 11/25/16 08:51 Family History Patient's mother is at age 100 of old age. Patient's father is asbestos-related cancer. One brother is from mesothelioma. One sister of diabetes complication. Substance Use Tobacco: Nonsmoker previously smoked one half PPD Alcohol: None Prescription med abuse: None Illicits: None . Psychosocial History Originally from [place], lived in [place] for about 25 years. Supported by his niece, as well as lifelong partner. His niece had recently moved in to provide additional care and support to patient in the home setting.. Lives at home with his partner though recently has been in and out of rehabilitation/ hospital . Spiritual/Cultural Factors Hoahaoism . Living Will: Completed, but not made available Health Care Surrogate: Completed, but not made available Ethical and Legal Issues Patient currently appears able to make his own decisions. He is supported by his niece and his partner of many years. He indicates they are designated HCS, currently no copies of this document present. Palliative Can offer to assist him with HCS completion during this admission if they are unable to locate copies. Physical Exam Vital Signs Date Time Temp Pulse Resp B/P Pulse Ox O2 Delivery O2 Flow Rate FiO2 11/25/16 08:55 97 Nasal Cannula 2.00 11/25/16 08:00 97.3 74 16 124/58 100 11/25/16 04:00 97.6 76 16 119/56 99 11/25/16 00:00 97.3 94 20 107/52 98 11/24/16 20:16 98 Nasal Cannula 3.00 11/24/16 20:04 79 11/24/16 20:02 97.4 88 22 95/61 99 11/24/16 20:00 Nasal Cannula 3.00 11/24/16 20:00 97.4 88 22 95/61 95 11/24/16 16:00 98.6 99 18 97/56 97 11/24/16 12:00 97.0 86 18 131/64 97 11/24/16 11/25/16 19:00 07:00 Intake Total 480 ml 447 ml Output Total 800 ml 400 ml Balance -320 ml 47 ml Intake Oral 480 ml 340 ml IV Total 107 ml Output Urine Total 800 ml 400 ml # Bowel Movements 1 0 Exam CONSTITUTIONAL/GENERAL: This is an elderly, chronically ill-appearing man TUBES/LINES/DRAINS: Peripheral IV upper extremity, Chavez catheter, nasal cannula O2 SKIN: No jaundice, rashes, or lesions. Multiple areas ecchymoses all 4 extremities. Multiple well-healed scars to abdomen. No wounds seen anteriorly. Skin temperature appropriate. Not diaphoretic. HEAD: Atraumatic. Normocephalic. EYES: Pupils equal and round and reactive. Extraocular motions intact. No scleral icterus. No injection or drainage. Fundi not examined. ENT: Hearing grossly normal. Nose without bleeding or purulent drainage. NECK: Trachea midline. Supple, nontender. No palpable thyroid enlargement or nodularity. CARDIOVASCULAR: Regular rate and rhythm without murmurs. No JVD. Peripheral pulses symmetric. Significant edema to lower extremities peripheral pulses are palpable RESPIRATORY/CHEST: Symmetric, mildly labored respirations. Mildly short of breath at rest, increases with any conversation. Coarse scattered rhonchi. Breath sounds equal bilaterally. GASTROINTESTINAL: Abdomen soft, non-tender, nondistended. No hepato-splenomegaly , or palpable masses. Multiple well-healed scars to abdomen. No guarding. Bowel sounds present. GENITOURINARY: Without palpable bladder distension. Chavez catheter in place- clear yellow urine MUSCULOSKELETAL: Extremities without clubbing, cyanosis.+ Edema to bilateral lower extremities. No joint tenderness or effusion noted. NEUROLOGICAL: Lethargic, arouses some for exam. Oriented 3, appropriate. Moves all 4 extremities with generalized weakness. PSYCHIATRIC: No obvious anxiety/depression. no apparent hallucinations or other psychotic thought process. Diagnostic Tests Laboratory Laboratory Tests Test 11/23/16 11/24/16 11/25/16 06:00 06:01 06:15 Prothrombin Time 28.7 SEC 32.8 SEC 32.8 SEC (9.8-11.6) (9.8-11.6) (9.8-11.6) Prothromb Time International 2.5 RATIO 2.8 RATIO 2.8 RATIO Ratio Creatinine 0.84 MG/DL (0.60-1.30) Estimat Glomerular Filtration 89 ML/MIN (>89) Rate Result Diagram: 11/23/16 0600 Microbiology 11/20urineCandida 11/14blood cultureno growth 5 days putumheavy growth normal respiratory prashant 11/14urinenegative for streptococcus, Legionella 11/13blood culture+ Providencia stuartii, Enterococcus faecalis, Escherichia coli ESBL positive . Imaging Last Impressions Chest X-Ray 11/25/16 0000 Signed Impressions: Service Date/Time: Friday, November 25, 2016 11:53 - CONCLUSION: Persistent bilateral effusions with concomitant atelectatic changes, unchanged. Duarte Gupta MD Abdomen/Pelvis CT 11/14/16 0000 Signed Impressions: Service Date/Time: Monday, November 14, 2016 21:20 - CONCLUSION: 1. Contracted gallbladder with calcified gallstones again noted. 2. Multiple anterior abdominal hernias again noted. 3. Nonspecific, nonobstructive bowel gas. 4. Mild consolidation in the lung bases. Yohan Vera MD CT Angiography 11/13/16 0000 Signed Impressions: Service Date/Time: Sunday, November 13, 2016 16:43 - CONCLUSION: 1. No pulmonary embolus. 2. Emphysematous change in the upper lungs and consolidation or atelectasis in the lower lungs. 3. 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 This finding is unchanged. 4. Multiple compression fractures in the thoracic spine. Salvatore Goddard MD Procedures 11/14left IJ TLC Patient/Family Conference Present at Family Conference: Patient Family Conference Time (mins): 15 Issues Discussed: Met with patient at bedside, limited discussion as per patient preference. Towards the end of our discussion his niece arrived. (Plan to meet again with him tomorrow with niece, partner present) Discussed the following items: * Palliative care role, purpose, approach * Additional medical, psychosocial, history * Patients general health, functional status, and cognitive changes in the months leading up to the current hospitalization * Patient/family understanding of the current medical problems/prognosis * Patients goals of care * CODE STATUSpatient wishes to remain DNR * Legal decision maker/healthcare surrogate designationpatient indicates his niece in partner are designated. No copies of this documentation in the chart currently * Questions answered to the best of my ability * Palliative care contact information provided Brief meeting with the patient at bedside. Some review of history, recent trajectory. He tires very easily with any conversation, becomes increasingly short of breath with conversation. He expresses frustration with recent hospitalizations, chronic illnesses. He expresses frustration with the rehab process, and wants to get back to his home . He indicates that he "doesn't want to suffer "as his illnesses continue, he understands his cardiac, pulmonary conditions are not reversible. Attempt to gently explore ES disease process and hospice option with him upon his indicating does not want to suffer-- however he then tells me he doesn't want to talk any more and is too tired, requests I return tomorrow when his partner and niece can both be present. I have left my contact information with them they will call me with a time. Assessment and Plan Disease Oriented Problem List: (1) Chronic kidney disease (2) Respiratory failure (3) Septic shock (4) COPD exacerbation (5) Hypertension (6) CHF (congestive heart failure) (7) Atrial fibrillation (8) COPD (chronic obstructive pulmonary disease) Symptom Scale: (1) Dyspnea 0-10 Scale: Unable to quantify (2) Malnutrition 0-10 Scale: Unable to quantify (3) Weakness 0-10 Scale: Unable to quantify (4) Anxiety 0-10 Scale: Unable to quantify Pertinent Non-Medical Issues Psychosocial:Originally from [place], lived in [place] for about 25 years. Supported by his niece, as well as lifelong partner. His niece had recently moved in to provide additional care and support to patient in the home setting.. Lives at home with his partner though recently has been in and out of rehabilitation/hospital Spiritual: Hoahaoism Legal:Patient currently appears able to make his own decisions. He is supported by his niece and his partner of many years. He indicates they are designated HCS, currently no copies of this document present. Palliative Can offer to assist him with HCS completion during this admission if they are unable to locate copies. Ethical issues impacting care: Important Contacts Rl George (life partner) [phone] or [phone], Debora Nuñez (niece) [phone] . Prognosis This patient with multiple chronic medical conditions as had multiple recent admissions, this is his fourth hospitalization in 3 months. He is currently stable and appears he will be able to medically discharged back to rehabilitation setting this admission. He remains high risk for recurrent complications/setbacks and repeated hospitalizations given history, and recent trajectory. . Code Status: No Code Plan * Legal decision maker: Patient appears able to make his own decisions at this time, he indicates his partner and his niece are designated HCS, awaiting documentation of this. If they do not have documentation can offer him assistance with completion of healthcare surrogate paperwork during this admission. * Goals: At this time patient's goals appear aggressive short of CPR however he also indicates he does not wish to continue to suffer and rehabilitation has not been very helpful, he was very guarded with any discussion regarding hospice , plan for additional meeting with him and his family tomorrow 11/26--time TBD * CODE STATUS: DNR * SYMPTOMS: --Malnutrition-weight appears fairly stable, albumin low 2.1; eating 07270 percent of most meals; receiving ensure supplement --Dyspnea-admitted for acute respiratory failure, CXR with persistent atelectasis, stable-long history COPD, CHF--on Mucomyst nebulizer, DuoNeb's [id number], +vancomycin//he subjectively endorses breathing feels a little better, will continue to evaluate --Weakness-chronic deconditioning, and an out of hospital/rehabilitation setting in the past 3 months --Anxiety-patient endorses episodes of anxiety especially during acute hospitalization ; he feels like they are a "panic attack "--he does have prn Xanax 0.25 PO available every 4 hours; has used sparingly during hospital course thus far 1 dose today, 1 dose yesterday, 1 dose the day prior --Endorses no pain currently, occasional intermittent lower abdominal pain he relates to multiple prior surgeries; has prn morphine, norco available, sparing requirements * Palliative care will continue to follow during hospital course as condition evolves, to assist patient/decision-maker with understanding of medical conditions, weighing benefits/burdens of treatment options, for clarification of goals of treatment. Additionally will assist with any symptoms of palliative concern Time Spent Total Floor Time (mins): 60 Thank you for the opportunity to participate in the care of Mr. Benjamin. Attestation To help prompt me to consider important information that might be impacting today's encounter and assessment, information from prior notes written by myself or my colleagues may have been "brought forward" into today's note. My signature on this note, however, is an attestation that I personally performed the exam, history, and/or decision-making noted today, and, unless otherwise indicated, the interactions with patient, family, and staff as well as the review of records all occurred today. I also attest that the listed assessment and stated plan reflect my best clinical judgment today based on the combination of historical information, prior notes, and today's exam/ interactions. When time spent is documented, it refers only to time spent today by the signer, or if indicated, combined time spent today by collaborating physician/nurse practitioner. Kamila Cancino Nov 25, 2016 12:04
[2016-11-25] MEDS: ALPRAZolam 0.25 MG TAB PO PRN (12:14)
[2016-11-25] MEDS: VANCOMYCIN INJ 1,600 MG in SODIUM CHLORID 0.9% 500 ML INJ 500 ML IV SCH (12:14)
--- NOTE | 2016-11-25 13:16 | RADRPT ---
EXAM DATE/TIME: 11/25/2016 11:53 [facility] COMPARISON: POC ULTRASOUND VASCULAR ACCESS TEAM, November 19, 2016, 11:23. CHEST SINGLE AP, November 16, 2016, 3:33. INDICATIONS : Shortness of breath. MEDICAL HISTORY : None. SURGICAL HISTORY : Pacemaker. Colostomy. ENCOUNTER: Subsequent ACUITY: 2 weeks PAIN SCORE: 7/10 LOCATION: chest FINDINGS: A single view of the chest demonstrates persistent bibasilar effusions with common atelectatic change s, unchanged from prior. Heart size is prominent. Left subclavian bipolar pacer is radiographically i ntact. Degenerative spurring of the dorsal spine. CONCLUSION: Persistent bilateral effusions with concomitant atelectatic changes, unchanged. Duarte Gupta MD on November 25, 2016 at 12:53 Board Certified Radiologist. This report was verified electronically.
--- NOTE | 2016-11-25 14:01 | HHI.IDPN ---
Subjective Subjective Remarks Notes reviewed Temps ok Gets easily SOB States he is not improving Repeat CXR no change, has not worsened He is only on 2L O2 Antibiotics Invanz Vancomycin Diflucan Lines PIV Past Medical History Reviewed Allergies: Coded Allergies: Quinidex Extentab (Verified Allergy, Severe, PLATELETT COUNT DECREASES/ BLINDNESS, 11/02/16) Niacin (Verified Allergy, Intermediate, RASH/ITCHING, 11/02/16) MRI PRECAUTION (Verified Adverse Reaction, Severe, NON MRI COMPATIBLE DEFIB 10/22/15 LRS, 11/02/16) *MDRO Multi-Drug Resistant Organism (Verified Adverse Reaction, Unknown, ESBL, 11/17/16) ESBL E. coli (abd. 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 coli (urine) - 03/08/16, 09/28/16, 10/19/16 ESBL E.Coli (blood)-11/13/16 Objective . Vital Signs Date Time Temp Pulse Resp B/P Pulse Ox O2 Delivery O2 Flow Rate FiO2 11/25/16 09:00 Nasal Cannula 2.00 11/25/16 08:55 97 Nasal Cannula 2.00 11/25/16 08:09 70 11/25/16 08:00 97.3 74 16 124/58 100 11/25/16 04:00 97.6 76 16 119/56 99 11/25/16 00:00 97.3 94 20 107/52 98 11/24/16 20:16 98 Nasal Cannula 3.00 11/24/16 20:04 79 11/24/16 20:02 97.4 88 22 95/61 99 11/24/16 20:00 Nasal Cannula 3.00 11/24/16 20:00 97.4 88 22 95/61 95 11/24/16 16:00 98.6 99 18 97/56 97 11/24/16 11/24/16 11/25/16 15:00 23:00 07:00 Intake Total 480 ml 240 ml 207 ml Output Total 800 ml 300 ml 100 ml Balance -320 ml -60 ml 107 ml Intake Oral 480 ml 240 ml 100 ml IV Total 107 ml Output Urine Total 800 ml 300 ml 100 ml # Bowel Movements 1 0 0 Imaging Chest X-Ray 11/16/16 0600 Signed Impressions: Service Date/Time: Wednesday, November 16, 2016 03:33 - CONCLUSION: Increasing consolidation and bilateral effusions are suspected. Loc Campbell MD Chest X-Ray 11/14/16 1433 Signed Impressions: Service Date/Time: Monday, November 14, 2016 14:57 - CONCLUSION: 1. Interval placement of left internal jugular central venous line with no pneumothorax. 2. Abnormal opacity remains at the left lung base with probable effusion. Yohan Vera MD Chest X-Ray 11/14/16 1433 Signed Impressions: Service Date/Time: Monday, November 14, 2016 14:57 - CONCLUSION: 1. Interval placement of left internal jugular central venous line with no pneumothorax. 2. Abnormal opacity remains at the left lung base with probable effusion. Yohan Vera MD Abdomen/Pelvis CT 11/14/16 0000 Signed Impressions: Service Date/Time: Monday, November 14, 2016 21:20 - CONCLUSION: 1. Contracted gallbladder with calcified gallstones again noted. 2. Multiple anterior abdominal hernias again noted. 3. Nonspecific, nonobstructive bowel gas. 4. Mild consolidation in the lung bases. Yohan Vera MD CT Angiography 11/13/16 0000 Signed Impressions: Service Date/Time: Sunday, November 13, 2016 16:43 - CONCLUSION: 1. No pulmonary embolus. 2. Emphysematous change in the upper lungs and consolidation or atelectasis in the lower lungs. 3. 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 This finding is unchanged. 4. Multiple compression fractures in the thoracic spine. Salvatore Goddard MD Physical Exam GENERAL: Awake and alert, NAD. SKIN: Cool and dry, no generalized rash HEENT: [place] conjunctivae, no petechia or hemorrhage. No scleral icterus. Moist mucosa, no oral thrush. . NECK: Supple, nontender, no meningeal signs. Line ok CARDIOVASCULAR: Regular rate and rhythm without murmurs. AICD with no evidence of infection. RESPIRATORY: Decreased BS both ling g[place] GASTROINTESTINAL: Abdomen soft, non-tender, nondistended. Bowel sounds are present and normoactive. No guarding. MUSCULOSKELETAL: Extremities without edema. No calf tenderness. NEUROLOGICAL: Grossly non-focal PSYCH: Calm and cooperative : Paz in place, urine clear LINE: PIV Assessment & Plan Remarks IMPRESSION Polymicrobial sepsis on admission, with shock, source - BP better - C/O SOB, and some cough, ?PNA - UA ok - LFT ok - had E coli ESBL+ UTI last September - has AICD, site unremarkable Cardiomyopathy, CAD Burning at paz cath site RECOMMENDATION Continue Invanz Continue Vancomycin Continue Diflucan - to finish 7 days Rx Monitor progress Abx until 11/26 End date written for Abx Seems clinically stable from ID standpoint I will be available prn Please reconsult if with any new ID issue or question Emilia Houston MD Nov 25, 2016 14:01
--- NOTE | 2016-11-25 16:04 | HHI.PR ---
Subjective Remarks 76 YOWM with Bilat Pn,COPD,CHF,AF On Abx Feels better Weak, mild sob Cough and congestion Small amount of sp Feels hungry but does't like hosp food. Objective Vital Signs Vital Signs Date Time Temp Pulse Resp B/P Pulse Ox O2 Delivery O2 Flow Rate FiO2 11/25/16 09:00 Nasal Cannula 2.00 11/25/16 08:55 97 Nasal Cannula 2.00 11/25/16 08:09 70 11/25/16 08:00 97.3 74 16 124/58 100 11/25/16 04:00 97.6 76 16 119/56 99 11/25/16 00:00 97.3 94 20 107/52 98 11/24/16 20:16 98 Nasal Cannula 3.00 11/24/16 20:04 79 11/24/16 20:02 97.4 88 22 95/61 99 11/24/16 20:00 Nasal Cannula 3.00 11/24/16 20:00 97.4 88 22 95/61 95 I/O 11/24/16 11/24/16 11/24/16 11/25/16 11/25/16 11/25/16 07:00 15:00 23:00 07:00 15:00 23:00 Intake Total 120 ml 480 ml 240 ml 207 ml Output Total 800 ml 800 ml 300 ml 100 ml Balance -680 ml -320 ml -60 ml 107 ml Intake Oral 120 ml 480 ml 240 ml 100 ml IV Total 107 ml Output Urine Total 800 ml 800 ml 300 ml 100 ml # Bowel Movements 0 1 0 0 Result Diagram: 11/23/16 0600 Objective Remarks GENERAL: Elderly male ,NAD SKIN: Warm and dry. HEAD: Normocephalic. EYES: No scleral icterus. No injection or drainage. NECK: Supple, trachea midline. No JVD or lymphadenopathy. CARDIOVASCULAR: Regular rate and rhythm without murmurs, gallops, or rubs. RESPIRATORY: Breath sounds equal bilaterally. No accessory muscle use. GASTROINTESTINAL: Abdomen soft, non-tender, nondistended. MUSCULOSKELETAL: No cyanosis, + edema. BACK: Nontender without obvious deformity. No CVA tenderness. A/P Assessment and Plan Bilat Infilt HTN COPD CHF AF CAD H/O ITP PLAN: Cont Abx Vanco and Ertapenem Aerosol nebs Mucomyst nebs Symbicort Bid Coumadin 1.5 mg Monitor INR PO Prednisone Bahman Villarreal MD Nov 25, 2016 16:04
[2016-11-25] MEDS: ATORVASTATIN 10 MG TAB PO SCH (21:30)
[2016-11-26] VITALS (8 sets, daily range): BP systolic 119–153; BP diastolic 56–76; PULSE 69–98; RESP 19–20; TEMP 97.4–98.4; O2SAT 90–96
[2016-11-26] MEDS: ERTAPENEM INJ 1,000 MG in SODIUM CHLORIDE 0.9% INJ 100 ML IV SCH (04:00)
[2016-11-26] MEDS: CHLORHEXIDINE GLUCONATE 2 % 1 PACK (2 CLOTHS) TOP SCH (04:00)
[2016-11-26] MEDS: ALPRAZolam 0.25 MG TAB PO PRN ×2 (05:13→12:51)
[2016-11-26] MEDS: RESP: ALBUTEROL 2.5 MG/3 ML NEB (PRN) INH (05:41)
[2016-11-26] MEDS: INSULIN NovoLIN REGULAR SUPPLEMENTAL SCALE SQ SCH ×3 (07:00→17:38)
[2016-11-26 07:55] LABS: INTERNATIONAL NORMALIZED RATIO 2.3 RATIO; PROTHROMBIN TIME - PATIENT 26.6 SEC (9.8-11.6)
[2016-11-26] MEDS: PANTOPRAZOLE SODIUM 40 MG VIAL IV SCH (09:10)
[2016-11-26] MEDS: SODIUM CHLORIDE 0.9% FLUSH 5 ML FLUSH IV FLUSH SCH (09:10)
[2016-11-26] MEDS: SODIUM CHLORIDE 0.9% FLUSH 5 ML FLUSH IVF SCH (09:10)
[2016-11-26] MEDS: predniSONE 20 MG TAB PO SCH (09:10)
[2016-11-26] MEDS: ARTIFICIAL TEARS OPTH SOLN 15 ML BTL EACH EYE SCH ×3 (09:10→17:49)
[2016-11-26] MEDS: LISINOPRIL 5 MG TAB PO SCH (09:11)
[2016-11-26] MEDS: MULTIVITAMINS/MINERALS THERAPEUTIC TAB PO SCH (09:11)
[2016-11-26] MEDS: POTASSIUM CHLORIDE 20 MEQ CONTROLLED RELEASE TAB PO SCH (09:11)
[2016-11-26] MEDS: CALCIUM/VITAMIN D 250 MG/125 U TAB PO SCH (09:11)
[2016-11-26] MEDS: FLUCONAZOLE 100 MG TAB PO SCH (09:11)
[2016-11-26] MEDS: AMIODARONE 200 MG TAB PO SCH (09:11)
[2016-11-26] MEDS: ESCITALOPRAM OXALATE 10 MG TAB PO SCH (09:11)
[2016-11-26] MEDS: DOCUSATE SODIUM 100 MG CAP PO SCH (09:12)
[2016-11-26] MEDS: BUDESONIDE-FORMOTEROL 160/4.5 MCG INHALER INH SCH (11:06)
--- NOTE | 2016-11-26 11:09 | HHI.PR ---
Subjective Remarks sob hasn't improved as much. still on three liters of oxygen. d/w the RN and reportedly had a panic attack along with respiratory distress last night. still with some cough. no fever. d/w the RN. Objective Vitals Vital Signs Date Time Temp Pulse Resp B/P Pulse Ox O2 Delivery O2 Flow Rate FiO2 11/26/16 08:00 98.4 80 20 119/56 91 11/26/16 04:00 Nasal Cannula 2.00 11/26/16 04:00 97.5 98 20 149/75 95 11/26/16 00:01 Nasal Cannula 2.00 11/26/16 00:01 97.4 69 19 153/73 95 11/25/16 21:20 69 11/25/16 20:00 Nasal Cannula 2.00 11/25/16 20:00 97.3 71 18 118/60 94 11/25/16 18:05 92 Nasal Cannula 2.00 11/25/16 16:00 97.9 85 20 145/73 91 11/25/16 12:00 99.0 82 18 129/57 91 I/O 11/25/16 11/25/16 11/25/16 11/26/16 11/26/16 11/26/16 07:00 15:00 23:00 07:00 15:00 23:00 Intake Total 207 ml 360 ml 240 ml 200 ml Output Total 100 ml 750 ml 50 ml 250 ml Balance 107 ml -390 ml 190 ml -50 ml Intake Oral 100 ml 360 ml 240 ml 100 ml IV Total 107 ml 100 ml Output Urine Total 100 ml 750 ml 50 ml 250 ml # Bowel Movements 0 0 Result Diagram: 11/23/16 0600 Imaging Last Impressions Chest X-Ray 11/25/16 0000 Signed Impressions: Service Date/Time: Friday, November 25, 2016 11:53 - CONCLUSION: Persistent bilateral effusions with concomitant atelectatic changes, unchanged. Duarte Gupta MD Abdomen/Pelvis CT 11/14/16 0000 Signed Impressions: Service Date/Time: Monday, November 14, 2016 21:20 - CONCLUSION: 1. Contracted gallbladder with calcified gallstones again noted. 2. Multiple anterior abdominal hernias again noted. 3. Nonspecific, nonobstructive bowel gas. 4. Mild consolidation in the lung bases. Yohan Vera MD CT Angiography 11/13/16 0000 Signed Impressions: Service Date/Time: Sunday, November 13, 2016 16:43 - CONCLUSION: 1. No pulmonary embolus. 2. Emphysematous change in the upper lungs and consolidation or atelectasis in the lower lungs. 3. 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 This finding is unchanged. 4. Multiple compression fractures in the thoracic spine. Salvatore Goddard MD Objective Remarks GENERAL: with mild sob HEENT; no pharyngeal exudate CARDIOVASCULAR: Regular rate and irregular rhythm without murmurs, gallops, or rubs. RESPIRATORY: bilateral wheezing and prolonged expiration. GASTROINTESTINAL: Abdomen soft, non-tender, nondistended. Normal, active bowel sounds MUSCULOSKELETAL: Extremities without clubbing, cyanosis, or edema. NEURO: Alert & Oriented x4 to person, place, time, situation. Moves all ext x4 Procedures central line placement Medications and IVs Current Medications Norepinephrine Bitartrate (Levophed-Dextrose Drip) 250 ml @ 0 mls/hr TITRATE IV Last administered on 11/15/16 01:13; Start 11/13/16 at 12:15; Stop 11/17/16 at 08:11; Status DC Terbutaline Sulfate 1 mg 1 mg UNSCH PRN SQ For Extravasation; Start 11/13/16 at 12:15 Dopamine HCl/ Dextrose (DOPamine INJ PREMIX) 500 ml @ 0 mls/hr TITRATE IV ; Start 11/13/16 at 12:15; Stop 11/15/16 at 14:05; Status DC Terbutaline Sulfate 1 mg 1 mg UNSCH PRN SQ For Extravasation; Start 11/13/16 at 12:15; Status Cancel Vancomycin HCl 1000 mg/Sodium Chloride 250 ml @ 250 mls/hr ONCE ONCE IV ; Start 11/13/16 at 12:45; Stop 11/13/16 at 13:44; Status DC Piperacillin Sod/ Tazobactam Sod 50 ml @ 100 mls/hr ONCE ONCE IV Last administered on 11/13/16 13:13; Start 11/13/16 at 12:45; Stop 11/13/16 at 13:14 ; Status DC Sodium Chloride 1,000 ml @ 999 mls/hr BOLUS ONCE IV Last administered on 11/13 14:04; Start 11/13/16 at 13:15; Stop 11/13/16 at 14:15; Status DC Sodium Chloride (NS 1000 ml Inj) 1,000 ml @ 84 mls/hr [id number] IV Last administered on 11/15/16 01:13; Start 11/13/16 at 13:13; Stop 11/15/16 at 14:00 ; Status DC IV Flush (NS Flush) 2 ml UNSCH PRN IV FLUSH FLUSH AFTER USING IV ACCESS Last administered on 11/15/16 08:12; Start 11/13/16 at 13:15 IV Flush (NS Flush) 2 ml BID IV FLUSH ; Start 11/13/16 at 21:00; Stop 11/13/16 at 21:00; Status DC Acetaminophen (Tylenol) 650 mg Q6H PRN PO FEVER >101F; Start 11/13/16 at 13:15 Acetaminophen/ Hydrocodone Bitart ([place] 5-325 Mg) 1 tab Q4H PRN PO PAIN SCALE 1 TO 5 Last administered on 11/13/16 16:00; Start 11/13/16 at 13:15 Morphine Sulfate (Morphine Inj) 2 mg Q2H PRN IV PAIN SCALE 6 TO 10 Last administered on 11/16/16 06:54; Start 11/13/16 at 13:15 Pantoprazole Sodium (Protonix Inj) 40 mg DAILY IV Last administered on 09:10; Start 11/14/16 at 09:00 Artificial Tears (Tears Naturale Opth Soln) 1 drop TID EACH EYE Last administered on 11/26/16 09:10; Start 11/13/16 at 18:00 Ondansetron HCl (Zofran Inj) 4 mg Q6H PRN IV NAUSEA OR VOMITING; Start at 13:15 Docusate Sodium (Colace) 100 mg BID PO Last administered on 11/25/16 21:32; Start 11/13/16 at 21:00 Sennosides (Senokot) 17.2 mg Q12H PRN PO CONSTIPATION; Start 11/13/16 at 13:15 Albuterol/ Ipratropium (Duoneb Neb) 1 ampule Q6HR NEB INH Last administered on 11/17/16 15:46; Start 11/13/16 at 16:00; Stop 11/17/16 at 16:00; Status DC Albuterol Sulfate (Albuterol Neb) 2.5 mg Q2HR NEB PRN INH SOB/WHEEZING Last administered on 11/26/16 05:41; Start 11/13/16 at 13:15 Miscellaneous Information 1 Q361D XX ; Start 11/13/16 at 13:15; Stop 11/13/16 at 16:59; Status DC Chlorhexidine Gluconate (Chlorhexidine 2% Cloth) 3 pack Taper DAILY@04 TOP ; Start 11/14/16 at 04:00; Stop 11/14/16 at 04:00; Status DC Chlorhexidine Gluconate (Chlorhexidine 2% Cloth) 3 pack UNSCH PRN TOP HYGIENIC CARE; Start 11/13/16 at 13:15; Stop 11/13/16 at 16:59; Status DC Dextrose (D50w (Vial) Inj) 25 ml UNSCH PRN IV PUSH HYPOGLYCEMIA-SEE COMMENTS; Start 11/13/16 at 13:15 Glucagon (Glucagon Inj) 1 mg UNSCH PRN OTHER HYPOGLYCEMIA-SEE COMMENTS; Start 11/13/16 at 13:15 Insulin Human Regular (NovoLIN R SUPPLEMENTAL SCALE) 1 Q6HR SQ Last administered on 11/15/16 11:36; Start 11/13/16 at 18:00; Stop 11/15/16 at 14:01 ; Status DC Amiodarone HCl (Cordarone) 200 mg DAILY PO Last administered on 11/26/16 09:11 ; Start 11/14/16 at 09:00 Atorvastatin Calcium (Lipitor) 10 mg HS PO Last administered on 11/25/16 21:30 ; Start 11/13/16 at 21:00 Budesonide/ Formoterol Fumarate (Symbicort 160-4.5 Inh) 2 puff Q12HR INH Last administered on 11/25/16 08:52; Start 11/13/16 at 21:00 Escitalopram Oxalate (Lexapro) 10 mg DAILY PO Last administered on 11/26/16 09 :11; Start 11/14/16 at 09:00 Multivitamins/ Minerals Therapeutic (Theragran M Tab) 1 tab DAILY PO Last administered on 11/26/16 09:11; Start 11/14/16 at 09:00 Tamsulosin HCl (Flomax) 0.4 mg HS PO ; Start 11/13/16 at 21:00; Status Hold Calcium/Vitamin D 2 mg 2 mg BID PO Last administered on 11/13/16 20:50; Start 11/13/16 at 21:00; Stop 11/14/16 at 09:09; Status DC Magnesium Sulfate/ Dextrose (Magnesium Sulfate 1 Gm Premix) 100 ml @ 100 mls/ hr Q1H IV Last administered on 11/13/16 14:30; Start 11/13/16 at 13:30; Stop 11/13/16 at 15:29; Status DC Dextrose 25 ml 25 ml ONCE ONCE IV PUSH Last administered on 11/13/16 13:58; Start 11/13/16 at 13:45; Stop 11/13/16 at 13:46; Status DC Dextrose/Sodium Chloride 1,000 ml @ 100 mls/hr Q10H IV ; Start 11/13/16 at 13: 45; Stop 11/13/16 at 13:50; Status DC Vasopressin 40 units/Dextrose 100 ml @ 1.5 mls/hr Q24H IV Last administered on 11/13/16 20:49; Start 11/13/16 at 16:00; Stop 11/17/16 at 08:12; Status DC Sodium Chloride (NS 1000 ml Inj) 1,000 ml @ 999 mls/hr BOLUS ONCE IV Last administered on 11/13/16 16:00; Start 11/13/16 at 16:00; Stop 11/13/16 at 17:00 ; Status DC Hydrocortisone Sodium Succinate 100 mg 100 mg Q8H IV PUSH Last administered on 11/15/16 08:11; Start 11/13/16 at 16:00; Stop 11/15/16 at 14:01; Status DC Sodium Phosphate 30 mmol/Sodium Chloride 260 ml @ 43.333 mls/ hr ONCE ONCE IV Last administered on 11/13/16 15:45; Start 11/13/16 at 15:45; Stop 11/13/16 at 21:44; Status DC Magnesium Sulfate/ Dextrose 100 ml @ 100 mls/hr Q1H IV Last administered on 17:00; Start 11/13/16 at 16:00; Stop 11/13/16 at 17:59; Status DC Pharmacy Profile Note 0 ml @ 0 mls/hr UNSCH OTHER ; Start 11/13/16 at 15:45; Stop 11/26/16 at 15:00 Potassium Chloride 100 ml @ 50 mls/hr Q2H PRN IV For Potassium 2.8 - 3.2 mEq/ L Last administered on 11/15/16t 08:11; Start 11/13/16 at 16:00; Stop 11/21/16 at 07:53; Status DC Potassium Chloride 100 ml @ 50 mls/hr Q2H PRN IV For Potassium 2.8 - 3.2 mEq/L ; Start 11/13/16 at 16:00; Stop 11/21/16 at 07:53; Status DC Potassium Chloride 100 ml @ 25 mls/hr UNSCH PRN IV For Potassium 3.3 - 3.5 mEq /L; Start 11/13/16 at 16:00; Stop 11/21/16 at 07:53; Status DC Potassium Chloride 100 ml @ 50 mls/hr Q2H PRN IV For Potassium 3.3 - 3.5 mEq/L ; Start 11/13/16 at 16:00; Stop 11/21/16 at 07:53; Status DC Magnesium Sulfate/ Sodium Chloride (Magnesium Sulfate Inj/NS Inj) 100 ml @ 50 mls/hr UNSCH PRN IV For Magnesium 0.9 - 1.1 mg/dL; Start 11/13/16 at 16:00; Stop 11/21/16 at 07:53; Status DC Magnesium Oxide 800 mg 800 mg UNSCH PRN PO For Magnesium 1.2 - 1.6 mg/dL; Start 11/13/16 at 16:00; Stop 11/21/16 at 07:53; Status DC Magnesium Sulfate/ Sodium Chloride (Magnesium Sulfate Inj/NS Inj) 100 ml @ 50 mls/hr UNSCH PRN IV For Magnesium 1.2 - 1.6 mg/dL; Start 11/13/16 at 16:00; Stop 11/21/16 at 07:53; Status DC Potassium Phosphate 2000 mg 2,000 mg Q4H PRN PO For Phosphorus < 2.5 mg/dL; Start 11/13/16 at 16:00; Stop 11/21/16 at 07:53; Status DC Sodium Phosphate/ Sodium Chloride (Sodium Phosphate Inj/NS 250 ml Inj) 250 ml @ 42 mls/hr UNSCH PRN IV For Phosphorus < 2.5 mg/dL Last administered on 06:39; Start 11/13/16 at 16:00; Stop 11/21/16 at 07:53; Status DC Potassium Phosphate 2000 mg 2,000 mg UNSCH PRN PO/TUBE SEE LABEL COMMENTS; Start 11/13/16 at 15:52; Stop 11/21/16 at 07:53; Status DC Potassium Phosphate/Sodium Chloride (Potassium Phosphate Inj/NS 250 ml Inj) 260 ml @ 42 mls/hr UNSCH PRN IV SEE LABEL COMMENTS Last administered on 11/20/16 00:47; Start 11/13/16 at 15:52; Stop 11/21/16 at 07:53; Status DC IV Flush (NS Flush) 2 ml UNSCH PRN IV FLUSH FLUSH AFTER USING IV ACCESS; Start 11/13/16 at 16:30; Stop 11/13/16 at 16:54; Status DC IV Flush 2 ml 2 ml BID IV FLUSH Last administered on 11/26/16 09:10; Start at 21:00 Piperacillin Sod/ Tazobactam Sod 100 ml @ 200 mls/hr Q6H IV Last administered on 11/14/16 08:38; Start 11/13/16 at 20:00; Stop 11/14/16 at 13:39; Status DC Azithromycin/ Sodium Chloride (Zithromax Inj/ NS 250 ml Inj) 250 ml @ 250 mls/ hr Q24H IV Last administered on 11/14/16 18:21; Start 11/13/16 at 18:00; Stop 11/15/16 at 08:43; Status DC Miscellaneous Information 1 Q361D XX ; Start 11/13/16 at 16:30 Chlorhexidine Gluconate (Chlorhexidine 2% Cloth) Taper DAILY@04 TOP Last administered on 11/19/16 04:00; Start 11/14/16 at 04:00; Stop 11/10/17 at 03:59 Chlorhexidine Gluconate 3 pack 3 pack UNSCH PRN TOP HYGIENIC CARE; Start at 16:30 Pharmacy Profile Note (Coumadin Consult Pharmacy) 0 ml @ 0 mls/hr UNSCH OTHER ; Start 11/13/16 at 16:30 Iohexol (Omnipaque 350 Inj) 75 ml STK-MED ONCE IV Last administered on 17:00; Start 11/13/16 at 17:00; Stop 11/13/16 at 17:01; Status DC Warfarin Sodium 1 mg 1 mg DAILY@16 PO Last administered on 11/13/16 18:00; Start 11/13/16 at 18:00; Stop 11/14/16 at 15:07; Status DC Vancomycin HCl 1000 mg/Sodium Chloride 250 ml @ 250 mls/hr ONCE ONCE IV Last administered on 11/13/16 21:40; Start 11/13/16 at 21:30; Stop 11/13/16 at 22:29 ; Status DC Vancomycin HCl/ Sodium Chloride (Vancomycin Inj/ NS 250 ml Inj) 258 ml @ 250 mls/hr ONCE ONCE IV Last administered on 11/14/16 00:40; Start 11/14/16 at 00 :00; Stop 11/14/16 at 01:01; Status DC Calcium/Vitamin D 500 mg 500 mg BID PO Last administered on 11/26/16 09:11; Start 11/14/16 at 21:00 Vancomycin HCl/ Sodium Chloride (Vancomycin Inj/ NS 500 ml Inj) 517.5 ml @ 258.75 mls/ hr Q24H IV Last administered on 11/21/16 14:54; Start 11/14/16 at 12:00; Stop 11/21/16 at 18:51; Status DC Miscellaneous Information SPECIFIC LAB TO BE ... ONCE ONCE XX Last administered on 11/17/16 11:45; Start 11/17/16 at 11:45; Stop 11/17/16 at 11:46 ; Status DC Miscellaneous Medication (ASP Crit: Doc ESBL, MDR A baumannii or P aer) 1 UNSCH X1 PRN XX PHARMACY DOCUMENTATION; Start 11/14/16 at 13:30; Stop 11/15/16 at 13: 29; Status DC Miscellaneous Medication 1 1 UNSCH X1 PRN XX PHARMACY DOCUMENTATION; Start at 13:30; Stop 11/15/16 at 13:29; Status DC Meropenem/Sodium Chloride (Merrem Inj/NS Inj) 100 ml @ 200 mls/hr Q8H IV Last administered on 11/18/16 05:56; Start 11/14/16 at 14:00; Stop 11/18/16 at 09:45 ; Status DC IV Flush (NS Flush) DAILY IVF Last administered on 11/25/16 08:51; Start at 09:00 IV Flush (NS Flush) UNSCH PRN IVF SEE PROTOCOL; Start 11/14/16 at 14:45 Diatrizoate Meglum/ Diatrizoate Sod (Md Brown Liq) 18 ml ONCE ONCE PO Last administered on 11/14/16 16:24; Start 11/14/16 at 14:45; Stop 11/14/16 at 14:46; Status DC Warfarin Sodium (Coumadin) 2 mg DAILY@16 PO Last administered on 11/15/16 17: 24; Start 11/14/16 at 16:00; Stop 11/16/16 at 08:33; Status DC Iohexol (Omnipaque 350 Inj) 93 ml STK-MED ONCE IV Last administered on 21:25; Start 11/14/16 at 21:25; Stop 11/14/16 at 21:26; Status DC Azithromycin (Zithromax) 500 mg DAILY PO Last administered on 11/16/16 08:38; Start 11/15/16 at 09:00; Stop 11/17/16 at 09:26; Status DC Hydrocortisone Sodium Succinate (SoluCORTEF INJ) 50 mg Q8H IV PUSH Last administered on 11/17/16 00:00; Start 11/15/16 at 16:00; Stop 11/17/16 at 08:12 ; Status DC Insulin Human Regular (NovoLIN R SUPPLEMENTAL SCALE) 1 ACHS SQ Last administered on 11/25/16 21:33; Start 11/15/16 at 16:00 Warfarin Sodium (Coumadin) 1.5 mg DAILY@16 PO Last administered on 11/21/16 16 :32; Start 11/16/16 at 16:00; Stop 11/22/16 at 10:17; Status DC Bumetanide (Bumex Inj) 1 mg ONCE ONCE IV PUSH Last administered on 11/16/16 09:17; Start 11/16/16 at 09:00; Stop 11/16/16 at 09:12; Status DC Hydrocortisone Sodium Succinate (SoluCORTEF INJ) 50 mg Q12H IV PUSH Last administered on 11/23/16 10:21; Start 11/17/16 at 21:00; Stop 11/23/16 at 11:53 ; Status DC Bumetanide (Bumex Inj) 1 mg ONCE ONCE IV PUSH Last administered on 11/17/16 09:46; Start 11/17/16 at 09:15; Stop 11/17/16 at 09:26; Status DC Bumetanide (Bumex Inj) 1 mg ONCE ONCE IV PUSH Last administered on 11/18/16 10:24; Start 11/18/16 at 10:00; Stop 11/18/16 at 10:16; Status DC Lisinopril (Prinivil) 2.5 mg DAILY PO Last administered on 11/26/16 09:11; Start 11/18/16 at 10:00 Miscellaneous (Pill Splitter) 1 ea UNSCH PRN OTHER SEE LABEL COMMENTS Last administered on 11/18/16 16:45; Start 11/18/16 at 09:30 Miscellaneous Medication (ASP Crit: Doc ESBL, MDR A baumannii or P aer) 1 UNSCH X1 PRN XX PHARMACY DOCUMENTATION; Start 11/18/16 at 09:45; Stop 11/19/16 at 09: 44; Status DC Miscellaneous Medication 1 1 UNSCH X1 PRN XX PHARMACY DOCUMENTATION; Start at 09:45; Stop 11/19/16 at 09:44; Status DC Ertapenem 1000 mg/ Sodium Chloride 100 ml @ 200 mls/hr Q24H IV ; Start at 11:00; Stop 11/19/16 at 03:21; Status DC Ertapenem/Sodium Chloride (INVanz INJ/NS Inj) 100 ml @ 200 mls/hr Q24H IV Last administered on 11/26/16 04:00; Start 11/19/16 at 04:00; Stop 11/26/16 at 23:00 Warfarin Sodium (Coumadin) 0.5 mg ONCE PO Last administered on 11/19/16 17:24 ; Start 11/19/16 at 16:00; Stop 11/19/16 at 21:00; Status DC Warfarin Sodium (Coumadin) 0.5 mg ONCE PO Last administered on 11/20/16 16:34 ; Start 11/20/16 at 16:00; Stop 11/20/16 at 21:00; Status DC Miscellaneous Information SPECIFIC LAB TO BE DRAWN:VANCOMYCIN TROUGH DATE TO... ONCE ONCE XX Last administered on 11/21/16 14:54; Start 11/21/16 at 11:45; Stop 11/21/16 at 11:46; Status DC Potassium Chloride (KCl) 40 meq ONCE ONCE PO Last administered on 11/20/16 18 :45; Start 11/20/16 at 18:00; Stop 11/20/16 at 18:21; Status DC Potassium Chloride (KCl) 20 meq DAILY PO Last administered on 11/26/16 09:11; Start 11/21/16 at 09:00 Albuterol/ Ipratropium (Duoneb Neb) 1 ampule Q4HR NEB NEB ; Start 11/21/16 at 12:00; Stop 11/21/16 at 12:36; Status DC Acetylcysteine (Mucomyst 10% Neb) 2 ml Q8HR NEB NEB Last administered on 15:34; Start 11/21/16 at 16:00; Stop 11/25/16 at 16:00; Status DC Albuterol/ Ipratropium 1 ampule 1 ampule Q6HR NEB NEB Last administered on 15:34; Start 11/21/16 at 16:00; Stop 11/25/16 at 16:00; Status DC Vancomycin HCl/ Sodium Chloride (Vancomycin Inj/ NS 500 ml Inj) 516 ml @ 258.75 mls/ hr Q24H IV Last administered on 11/25/16 12:14; Start 11/22/16 at 12:00; Stop 11/26/16 at 15:00 Warfarin Sodium (Coumadin) 1 mg ONCE ONCE PO Last administered on 11/22/16 16 :06; Start 11/22/16 at 16:00; Stop 11/22/16 at 16:01; Status DC Warfarin Sodium (Coumadin) 1.5 mg DAILY@16 PO Last administered on 11/23/16 16 :00; Start 11/23/16 at 16:00; Stop 11/26/16 at 08:39; Status DC Miscellaneous Information SPECIFIC LAB TO BE GONZALEZ... ONCE ONCE XX ; Start at 11:45; Stop 11/25/16 at 11:46; Status Cancel Alprazolam (Xanax) 0.25 mg Q8HR PRN PO ANXIETY Last administered on 11/22/16 13:43; Start 11/22/16 at 11:45; Stop 11/23/16 at 11:50; Status DC Phenol (Chloraseptic [place]) 2 spray Q4HR PRN OROPHARYNG SORE THROAT; Start at 11:45 Furosemide (Lasix Inj) 20 mg STAT ONCE IV Last administered on 11/22/16 18:44 ; Start 11/22/16 at 18:45; Stop 11/22/16 at 18:46; Status DC Lorazepam (Ativan Inj) 0.5 mg STAT ONCE IV Last administered on 11/22/16 18: 44; Start 11/22/16 at 18:45; Stop 11/22/16 at 18:46; Status DC Alprazolam (Xanax) 0.25 mg Q4HR PRN PO ANXIETY Last administered on 11/26/16 05:13; Start 11/23/16 at 12:00 Hydrocortisone Sodium Succinate (SoluCORTEF INJ) 50 mg DAILY IV PUSH Last administered on 11/24/16 09:29; Start 11/24/16 at 09:00; Stop 11/24/16 at 10:59 ; Status DC Fluconazole (Diflucan) 100 mg DAILY PO Last administered on 11/26/16 09:11; Start 11/23/16 at 12:45; Stop 11/30/16 at 12:44 Prednisone (Deltasone) 20 mg BID PO Last administered on 11/26/16 09:10; Start 11/25/16 at 09:00 Warfarin Sodium (Coumadin) 1 mg DAILY@16 PO ; Start 11/26/16 at 16:00 Line: Central Venous Catheter Side: Right Location: Femoral A/P Assessment and Plan A/P Acute hypoxemic respiratory failure- sob hasn't improved as much. COPD Possible HCAP Continue with oxygen keep sat >92% Bronchodilator therapy ; scheduled and as needed NIPPV PRN for resp distress Symbicort twice daily pulmonary following. Anxiety/ depression- history of Panic attacks On Escitalopram 10 mg by mouth daily for depression. continue with Xanax Acetaminophen for fever [place]/morphine for pain management Chronic atrial fibrillation Coronary artery disease status post [place] 1987 Cardiomyopathy Congestive heart failure/systolic EF 35-40% 10/16 Hypertension Dyslipidemia Mildly aortic stenosis Severe septic shock 2-D echocardiogram 10/16 revealed EF 35-40% regional hypokinesis. Mild aortic stenosis Echo from 11/14:EF 20% to 25%. Diffuse hypokinesis. Grade 1 diastolic dysfunction. Lisinopril 2.5mg daily switched to po prednisone. as OP. on Chronic prednisone use 20 milligrams daily.as OP Coreg 6.25 mg by mouth twice a day on hold Continue amiodarone 200 mg by mouth daily for A. fib. Continue atorvastatin 10 mg daily for dyslipidemia Possible healthcare associated pneumonia Continue abx per ID- on Vancomycin and Invanz Pertinent cultures 11/13 - blood cultures : Escherichia coli, Group D Enterococcus, GNR Negative urine Legionella pneumococcal antigens and influenza History of GI bleed Morbid obesity Cholelithiasis Chronic abdominal pain Chronic constipation Diverticulosis On PO heart healthy diet Protonix for GI prophylaxis. Colace/as needed Senokot for bowel regimen EGD from last admission - gastritis bx from antrum, normal endoscopy otherwise , retroflexed revealed no abnormalities, few diverticulosis in the sigmoid, normal surgical anastomosis, no active bleed, small polyp in the ascending colon removed by snare, the colon mucosa was otherwise normal, retroflexed views revealed internal hemorrhoids, small internal hemorrhoids, revealed no abnormalities of the rectum. BPH Hypogonadism Chronic kidney disease stage III Hypokalemia Monitor renal function and electrolytes periodically. Normocytic anemia history of ITP Chronic VKA use At home on Coumadin 2 mg by mouth daily. Monitor CBC/CMP daily.. Daily INRs with pharmacy to manage. Chronically prednisone 20 mg daily for ITP Chronic compression fractures of thoracic vertebrae Chronic low back pain Deconditioning- baseline gets around with a walker continue with pain control and PT. DVT prophylaxis with coumadin. placed on DNR status. palliative care following. Discharge Planning nor stable for discharge. David Pratt MD Nov 26, 2016 11:09
--- NOTE | 2016-11-26 11:31 | HHI.HCPN ---
Reason for visit a. To assist with evaluation and management of symptoms including: Dyspnea, anxiety, malnutrition b. To assist medical decision maker(s) with: better understanding of current medical conditions; weighing benefits/burdens of medical treatment options; making medical treatment decisions. Subjective/Interval History Pt seen today to follow up on comfort and possible meeting w pt and his family, per his request. no events overnight. NO new labs or imaging. VS stable. Seen in room, no visitors present. Nsg informs no family in yet today, she will call me when they arrive. Pt sleeping. Visibly short of breath/ tachypneic even at rest. + Moist/loud upper airway sounds. When I wake him to talk he tells me family is coming later though he is not sure when. He tells me he is very tired today. He doesn't really wish to engage further, he tells me he'll talk more later when his family is here. 1600-- seen later in afternoon for planned meeting. Very dyspneic. mildly anxious at times. Fatigued, though clear in his wishes. +Lungs w rhonchi, crackles, loud upper airway congestion. Family/friend interactions fam meeting today pending, nurse to notify me when they arrive. Call to mary following exam- to find out when they will be here; she will be here around noon however Rl works until 4, he will be here around 4 PM. Spoke w her at length on the phone, she details patient has had trajectory of decline over the past few months, patient has been struggling with the loss of his independence and increasingly bedbound status. Had been caring for the patient in the home he was primarily bed to chair to wheelchair however now he is unable to get up to toilet and essentially is full care she is concerned that she will no longer be able to care for him in the home setting. She verbalizes that both she and Rl have seen the patient decline and realizes that he is nearing end-of-life however the patient has always been very reluctant to talk about these things. She also verbalizes that [facility] is designated HCS she does not have any paperwork. I review with her hospice option for end-of-life comfort, she seems to understand that patient could benefit from this, the patient is not improving from rehabilitation efforts, however the patient has been increasingly anxious and fearful of dying such that he during recent hospitalization rescinded his DNR (which he had had for many years). Plan to meet later this afternoon with Rl ------1600: Later met w cricket Shine, Pt, at bedside. (with Teresa Monk, [employer] medical student) Pt very short of breath, calm, at times mildly anxious. Explore hospitalization, past few mos, co-morbidities, expected trajectory. Sig other asks if his heart condition or COPD can be improved by any escalation of tx IE ventilator etc, advise that those interventions might prolong pt ability to live with conditions but would not reverse or cure conditions. Pt is tearful at times, and states that he is "tired of suffering" and is ready to . He states he does not want to go on machines, and does not want to return to rehab. He indicates he is tired and accepts that he will from his conditions , he is just frightened of being painful or anxious if he dies. Advise that based on his recent trajectory, and expressed goals, hospice would be appropriate,and recommend hospice consultation and hold off additional tx in process right now ( labs being obtained etc, RN just obtained EKG apparently pt experience episode of CP prior to my return at 1600) . Pt is clear that he wants comfort measures only-- his significant other/partner appears to be struggling with this but also indicates he supports his wishes. They live in [place] and are familiar with [place] [facility] location and would like placement there if possible. Pt wants to ultimately get home if possible but also understands his care needs may be too great for his partner and niece who had prev. helped him at home. D/c charge nurse, med attending, and pulmonology who was rounding on pt. . Advance Directives Living Will: Completed, but not made available Health Care Surrogate: Completed, but not made available Objective Vital Signs Date Time Temp Pulse Resp B/P Pulse Ox O2 Delivery O2 Flow Rate FiO2 11/26/16 08:00 98.4 80 20 119/56 91 11/26/16 04:00 Nasal Cannula 2.00 11/26/16 04:00 97.5 98 20 149/75 95 11/26/16 00:01 Nasal Cannula 2.00 11/26/16 00:01 97.4 69 19 153/73 95 11/25/16 21:20 69 11/25/16 20:00 Nasal Cannula 2.00 11/25/16 20:00 97.3 71 18 118/60 94 11/25/16 18:05 92 Nasal Cannula 2.00 11/25/16 16:00 97.9 85 20 145/73 91 11/25/16 12:00 99.0 82 18 129/57 91 Intake & Output 11/26/16 11/26/16 07:00 19:00 Intake Total 440 ml Output Total 300 ml Balance 140 ml Intake Oral 340 ml IV Total 100 ml Output Urine Total 300 ml Physical Exam CONSTITUTIONAL/GENERAL: This is an elderly, chronically ill-appearing man TUBES/LINES/DRAINS: Peripheral IV x2 R upper extremity, Chavez catheter, nasal cannula O2 SKIN: No jaundice, rashes, or lesions. Multiple areas ecchymoses all 4 extremities. Multiple well-healed scars to abdomen. No wounds seen anteriorly. CARDIOVASCULAR: Regular rate and rhythm without murmurs. Significant edema to lower extremities peripheral pulses are palpable RESPIRATORY/CHEST: Symmetric, mildly labored respirations. Mildly short of breath at rest, increases with any conversation.+ audible moist/course upper airway sounds with breathing. Coarse scattered rhonchi. Breath sounds equal bilaterally. GASTROINTESTINAL: Abdomen soft, non-tender, nondistended. No hepato-splenomegaly , or palpable masses. Multiple well-healed scars to abdomen. No guarding. Bowel sounds present. NEUROLOGICAL: Lethargic, arouses some for exam. Oriented, limited engagement. Moves all 4 extremities with generalized weakness. PSYCHIATRIC: Flat. no apparent hallucinations or other psychotic thought process. Diagnostic Tests Laboratory Laboratory Tests Test 11/24/16 11/25/16 11/26/16 06:01 06:15 06:05 Prothrombin Time 32.8 SEC 32.8 SEC 26.6 SEC (9.8-11.6) (9.8-11.6) (9.8-11.6) Prothromb Time International 2.8 RATIO 2.8 RATIO 2.3 RATIO Ratio Result Diagram: 11/23/16 0600 Imaging Last Impressions Chest X-Ray 11/25/16 0000 Signed Impressions: Service Date/Time: Friday, November 25, 2016 11:53 - CONCLUSION: Persistent bilateral effusions with concomitant atelectatic changes, unchanged. Duarte Gupta MD Abdomen/Pelvis CT 11/14/16 0000 Signed Impressions: Service Date/Time: Monday, November 14, 2016 21:20 - CONCLUSION: 1. Contracted gallbladder with calcified gallstones again noted. 2. Multiple anterior abdominal hernias again noted. 3. Nonspecific, nonobstructive bowel gas. 4. Mild consolidation in the lung bases. Yohan Vera MD CT Angiography 11/13/16 0000 Signed Impressions: Service Date/Time: Sunday, November 13, 2016 16:43 - CONCLUSION: 1. No pulmonary embolus. 2. Emphysematous change in the upper lungs and consolidation or atelectasis in the lower lungs. 3. 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 This finding is unchanged. 4. Multiple compression fractures in the thoracic spine. Salvatore Goddard MD Procedures 11/14left IJ TLC Assessment and Plan Disease Oriented Problem List: (1) Chronic kidney disease (2) Respiratory failure (3) Septic shock (4) COPD exacerbation (5) Hypertension (6) CHF (congestive heart failure) (7) Atrial fibrillation (8) COPD (chronic obstructive pulmonary disease) Symptom Scale: (1) Dyspnea 0-10 Scale: Unable to quantify (2) Malnutrition 0-10 Scale: Unable to quantify (3) Weakness 0-10 Scale: Unable to quantify (4) Anxiety 0-10 Scale: Unable to quantify Pertinent Non-Medical Issues Psychosocial:Originally from [place], lived in [place] for about 25 years. Supported by his niece, as well as lifelong partner. His niece had recently moved in to provide additional care and support to patient in the home setting.. Lives at home with his partner though recently has been in and out of rehabilitation/hospital Spiritual: Confucianism Legal:Patient currently appears able to make his own decisions. He is supported by his niece and his partner of many years. He indicates they are designated HCS, currently no copies of this document present. Palliative Can offer to assist him with HCS completion during this admission if they are unable to locate copies. Ethical issues impacting care: Important Contacts Rl George (life partner) [phone] or [phone], Debora Nuñez (niece) [phone] . Prognosis This patient with multiple chronic medical conditions as had multiple recent admissions, this is his fourth hospitalization in 3 months. He initially stabilized, and appeared he will be able to medically discharged back to rehabilitation setting this admission. He remains high risk for recurrent complications/setbacks and repeated hospitalizations given history, and recent trajectory. Appropriate for hospice if goals compatible. . Code Status: No Code Plan * Legal decision maker: Patient appears able to make his own decisions at this time, he indicates his partner and his niece are designated HCS, awaiting documentation of this. If they do not have documentation can offer him assistance with completion of healthcare surrogate paperwork during this admission. * Goals: At initial consultation patient's goals appear aggressive short of CPR however he also indicates he does not wish to continue to suffer and rehabilitation has not been very helpful, he was very guarded with any discussion regarding hospice, plan for additional meeting with him today 11/26-- around 4pm. Spoke@ length w Niece on phone, sig other Shine will be in later, plan to meet w him then. They understand patient's recent trajectory of decline and that he is nearing end-stage disease process/end-of-life. Patient apparently has been struggling and has become increasingly frightened/anxious regarding end-of-life. 1630 -------->>> Met w pt,sig other at bedside. (see subjective for additional detail) Pt declining, acute resp distress. Sig other struggling to see pt decline, but pt expressing NO ESCALATION of tx, he is SOB, anxious, understands his options are escalation of tx vs comfort and hospice care- PT ELECTS HOSPICE / COMFORT MEASURES ONLY. He understands his condition will continue to decline. notified hospice admissions, d/w conveyor line battery charger, medical attending & pulmonary MD. Palliative MD to enter comfort orders to maintain comfort until pt can transfer to hospice care center-- possibly this evening. * CODE STATUS: DNR * SYMPTOMS: --Malnutrition-weight appears fairly stable, albumin low 2.1; eating 12865 percent of most meals; receiving ensure supplement --Dyspnea-admitted for acute respiratory failure, CXR with persistent atelectasis, stable-long history COPD, CHF--on Mucomyst nebulizer, DuoNeb's [id number], +vancomycin//will continue to evaluate --Weakness-chronic deconditioning, and an out of hospital/rehabilitation setting in the past 3 months --Anxiety-patient endorses episodes of anxiety especially during acute hospitalization ; he feels like they are a "panic attack "--he does have prn Xanax 0.25 PO available every 4 hours; has used sparingly during hospital course thus far 1 dose today, 1 dose yesterday, 1 dose the day prior --Endorses no pain currently, occasional intermittent lower abdominal pain he relates to multiple prior surgeries; has prn morphine, norco available, sparing requirements 1600 -->>comfort orders for tachypnea/dyspnea/anxiety entered by palliative MD * Palliative care will continue to follow during hospital course as condition evolves, to assist patient/decision-maker with understanding of medical conditions, weighing benefits/burdens of treatment options, for clarification of goals of treatment. Additionally will assist with any symptoms of palliative concern Time Spent Total Floor Time (mins): 65 >50% Counseling/Coord of Care: Yes (discussed with primary nurse, discussed with medical attending, pulmonary, conveyor line battery charger ) Attestation To help prompt me to consider important information that might be impacting today's encounter and assessment, information from prior notes written by myself or my colleagues may have been "brought forward" into today's note. My signature on this note, however, is an attestation that I personally performed the exam, history, and/or decision-making noted today, and, unless otherwise indicated, the interactions with patient, family, and staff as well as the review of records all occurred today. I also attest that the listed assessment and stated plan reflect my best clinical judgment today based on the combination of historical information, prior notes, and today's exam/ interactions. When time spent is documented, it refers only to time spent today by the signer, or if indicated, combined time spent today by collaborating physician/nurse practitioner. Kamila Cancino Nov 26, 2016 11:31
[2016-11-26] MEDS: VANCOMYCIN INJ 1,600 MG in SODIUM CHLORID 0.9% 500 ML INJ 500 ML IV SCH (12:50)
[2016-11-26] MEDS: MORPHINE SULFATE 4 MG/ML INJ IV PRN (12:51)
[2016-11-26] MEDS ORDERED: WARFARIN SOD 1 MG TAB PO SCH (16:00)
[2016-11-26] MEDS ORDERED: LORazepam 2 MG/ML VIAL IV ONE (16:00)
[2016-11-26] MEDS ORDERED: FUROSEMIDE 40 MG/4 ML VIAL IV PUSH ONE (17:00)
[2016-11-26] MEDS ORDERED: MORPHINE SULFATE 4 MG/ML INJ IV PUSH ONE (17:00)
[2016-11-26] MEDS ORDERED: LORazepam 2 MG/ML VIAL IV PUSH PRN ×2 (17:00→17:15)
--- NOTE | 2016-11-26 17:02 | HHI.PR ---
Subjective Remarks 76 YOWM with Bilat Pn,COPD,CHF,AF On Abx SOB Cough and congestion Small amount of sp Pt has decided for hospice and comfortable Sig other at BS Objective Vital Signs Vital Signs Date Time Temp Pulse Resp B/P Pulse Ox O2 Delivery O2 Flow Rate FiO2 11/26/16 12:45 95 Nasal Cannula 3.00 11/26/16 09:21 81 11/26/16 09:21 Nasal Cannula 2.00 11/26/16 08:00 98.4 80 20 119/56 91 11/26/16 04:00 Nasal Cannula 2.00 11/26/16 04:00 97.5 98 20 149/75 95 11/26/16 00:01 Nasal Cannula 2.00 11/26/16 00:01 97.4 69 19 153/73 95 11/25/16 21:20 69 11/25/16 20:00 Nasal Cannula 2.00 11/25/16 20:00 97.3 71 18 118/60 94 11/25/16 18:05 92 Nasal Cannula 2.00 I/O 11/25/16 11/25/16 11/25/16 11/26/16 11/26/16 11/26/16 06:59 14:59 22:59 06:59 14:59 22:59 Intake Total 207 ml 360 ml 240 ml 200 ml Output Total 100 ml 750 ml 50 ml 250 ml Balance 107 ml -390 ml 190 ml -50 ml Intake Oral 100 ml 360 ml 240 ml 100 ml IV Total 107 ml 100 ml Output Urine Total 100 ml 750 ml 50 ml 250 ml # Bowel Movements 0 0 Result Diagram: 11/23/16 0600 Objective Remarks GENERAL: Elderly male ,NAD SKIN: Warm and dry. HEAD: Normocephalic. EYES: No scleral icterus. No injection or drainage. NECK: Supple, trachea midline. No JVD or lymphadenopathy. CARDIOVASCULAR: Regular rate and rhythm without murmurs, gallops, or rubs. RESPIRATORY: Breath sounds equal bilaterally. No accessory muscle use. GASTROINTESTINAL: Abdomen soft, non-tender, nondistended. MUSCULOSKELETAL: No cyanosis, + edema. BACK: Nontender without obvious deformity. No CVA tenderness. A/P Assessment and Plan Bilat Infilt HTN COPD CHF AF CAD H/O ITP Pulm Odema PLAN: Cont Abx Vanco and Ertapenem Aerosol nebs Mucomyst nebs Symbicort Bid Coumadin 1.5 mg Monitor INR IV Morphine Ativan PRN IV Lasix Prognosis poor Hospice care Bahman Villarreal MD Nov 26, 2016 17:01
[2016-11-26] MEDS ORDERED: MORPHINE SULFATE 4 MG/ML INJ IV PUSH PRN (17:15)
--- NOTE | 2016-11-26 19:09 | HHI.DS ---
Discharge Summary Admission Date Nov 13, 2016 at 13:19 Discharge Date: Nov 26, 2016 Admitting Diagnosis septic shock. Respiratory failure. (1) Respiratory failure ICD Code: J96.90 Diagnosis: Principal (2) Severe sepsis with acute organ dysfunction ICD Code: A41.9 Diagnosis: Principal (3) Hypomagnesemia ICD Code: E83.42 Diagnosis: Principal (4) Hypophosphatemia ICD Code: E83.39 Diagnosis: Principal (5) Hyperlipidemia ICD Code: E78.5 Diagnosis: Principal (6) Anemia, normocytic normochromic ICD Code: D64.9 Diagnosis: Principal (7) Benign prostatic hyperplasia ICD Code: N40.0 Diagnosis: Principal (8) Chronic kidney disease ICD Code: N18.9 Diagnosis: Principal (9) A-fib ICD Code: I48.91 Diagnosis: Principal (10) Congestive heart failure ICD Code: I50.9 Diagnosis: Principal Procedures central line placement Brief History - From Admission 76-year-old male. Date of admission 11/13/2016. Past medical history includes chronic warfarin usage, anxiety disorder, coronary artery disease, chronic atrial fibrillation/rate control, chronic low back pain, cardiomyopathy , cholelithiasis, chronic compression fractures of thoracic vertebrae, chronic constipation, COPD, depression, diverticulosis, hypertension, dyslipidemia, ITP , macrocytosis, TERRENCE, esophagitis. This is the patient's fourth hospitalizations since August 2016. Most recently patient was admitted for GI bleed. Patient is not felt well since discharge. He presents from his [facility] after waking up acutely short of breath with pyrexia and nonproductive cough Patient was on Coumadin with Coumadin-induced coagulopathy. Patient was put back on Coumadin and [facility] Patient was seen at rest but distress and was given 100% nonrebreathing mask and transported to ED for evaluation. Chest x-ray revealed possible left lower lobe infiltrate. Patient became acutely hypotensive in the ED a central line was placed femorally by ED physician. Patient*norepinephrine drip and given 1 L normal saline bolus. Lactate within normal limits. He is transported to [facility] for evaluation at this facility. We are asked to admit this patient. CBC/BMP: 11/23/16 0600 Significant Findings Laboratory Tests Test 11/24/16 11/25/16 11/26/16 06:01 06:15 06:05 Prothrombin Time 32.8 SEC 32.8 SEC 26.6 SEC (9.8-11.6) (9.8-11.6) (9.8-11.6) PE at Discharge GENERAL: with mild sob HEENT; no pharyngeal exudate CARDIOVASCULAR: Regular rate and irregular rhythm without murmurs, gallops, or rubs. RESPIRATORY: bilateral wheezing and prolonged expiration. GASTROINTESTINAL: Abdomen soft, non-tender, nondistended. Normal, active bowel sounds MUSCULOSKELETAL: Extremities without clubbing, cyanosis, or edema. NEURO: Alert & Oriented x4 to person, place, time, situation. Moves all ext x4 Hospital Course Acute hypoxemic respiratory failure- sob hasn't improved as much. COPD Possible HCAP Continue with oxygen keep sat >92% Bronchodilator therapy ; scheduled and as needed NIPPV PRN for resp distress Symbicort twice daily pulmonary following. Anxiety/ depression- history of Panic attacks On Escitalopram 10 mg by mouth daily for depression. continue with Xanax Acetaminophen for fever Killen/morphine for pain management Chronic atrial fibrillation Coronary artery disease status post OH 1987 Cardiomyopathy Congestive heart failure/systolic EF 35-40% 10/16 Hypertension Dyslipidemia Mildly aortic stenosis Severe septic shock 2-D echocardiogram 10/16 revealed EF 35-40% regional hypokinesis. Mild aortic stenosis Echo from 11/14:EF 20% to 25%. Diffuse hypokinesis. Grade 1 diastolic dysfunction. Lisinopril 2.5mg daily switched to po prednisone. as OP. on Chronic prednisone use 20 milligrams daily.as OP Coreg 6.25 mg by mouth twice a day on hold Continue amiodarone 200 mg by mouth daily for A. fib. Continue atorvastatin 10 mg daily for dyslipidemia Possible healthcare associated pneumonia Continue abx per ID- on Vancomycin and Invanz Pertinent cultures 11/13 - blood cultures : Escherichia coli, Group D Enterococcus, GNR Negative urine Legionella pneumococcal antigens and influenza History of GI bleed Morbid obesity Cholelithiasis Chronic abdominal pain Chronic constipation Diverticulosis On PO heart healthy diet Protonix for GI prophylaxis. Colace/as needed Senokot for bowel regimen EGD from last admission - gastritis bx from antrum, normal endoscopy otherwise , retroflexed revealed no abnormalities, few diverticulosis in the sigmoid, normal surgical anastomosis, no active bleed, small polyp in the ascending colon removed by snare, the colon mucosa was otherwise normal, retroflexed views revealed internal hemorrhoids, small internal hemorrhoids, revealed no abnormalities of the rectum. BPH Hypogonadism Chronic kidney disease stage III Hypokalemia Monitor renal function and electrolytes periodically. Normocytic anemia history of ITP Chronic VKA use At home on Coumadin 2 mg by mouth daily. Monitor CBC/CMP daily.. Daily INRs with pharmacy to manage. Chronically prednisone 20 mg daily for ITP Chronic compression fractures of thoracic vertebrae Chronic low back pain Deconditioning- baseline gets around with a walker continue with pain control and PT. DVT prophylaxis with coumadin. placed on DNR status. palliative care following. Pt Condition on Discharge: Deteriorating Discharge Disposition: Hospice/Med Facility Discharge Time: <= 30 minutes Discharge Instructions DIET: Follow Instructions for: Heart Healthy Diet Activities you can perform: Regular-No Restrictions David Pratt MD Nov 26, 2016 19:09
--- NOTE | 2016-11-27 16:37 | EKG ---
Date Performed: 11/26/2016 Time Performed: 16:43:30 PTAGE: 76 years EKG: Probable atrial fibrillation. Left axis deviation IV conduction defect Possible extensive i nfarct - age undetermined Low QRS voltages in precordial leads Compared to prior tracing no significa nt change Abnormal ECG PREVIOUS TRACING : 11/13/2016 12.29 DOCTOR: Justina Bautista Interpretating Date/Time 11/27/2016 16:35:47
--- NOTE | 2016-11-28 13:34 | PQ ---
Physician Query Response Document PATIENT: DL SMALLWOOD : 1940 ADMIT DATE: 11/13/2016 1:19 PM DISCH DATE: 11/26/2016 8:49 PM RESPONDING PROVIDER #: [email or web address] QUERY TEXT: CHF Acuity and Type Congestive Heart Failure is documented in the Medical Record. Please document the type and acuity (in cludes probable or suspected) Such as: Type: -- Systolic -- Diastolic -- Combined -- Other, please specify Acuity: -- Acute -- Chronic -- Acute on chronic -- Other, please specify Also please document the underlying cause of the CHF (includes probable or suspected) If you have any additional questions/comments and/or concerns please call CDI/Coding Hotline @ext [phone] The patient's Clinical Indicators include: Dr. PRATT, PATIENT HAS HISTORY OF CHF 2-D echocardiogram 10/16 revealed EF 35-40% regional hypokinesis. Mild aortic stenosis Echo from 11/14:EF 20% to 25%. Diffuse hypokinesis. Grade 1 diastolic dysfunction. Lisinopril 2.5mg daily Congestive heart failure/systolic EF 35-40% 10/16 Please review the question below and answer to the best of your ability THANK YOU Query created by: Dagoberto Arevalo on 11/27/2016 7:43 AM RESPONSE TEXT: Chronic systolic CHF Electronically signed by: David Pratt MD 11/28/2016 1:31 PM
== END 2016-11-26 20:49 | DRG 871 ==
LOC: PHED 11:40 → PHEDA 13:19 → HIME 15:20 → N04A 11-20 18:11
PROVIDERS: ADMIT Internal Medicine; ATTEND Internal Medicine
PROC: 5A09357 Assistance with Respiratory Ventilation, Less than 24 Consecutive Hours, Continuous Positive Airway Pressure (ICD-10-PCS; principal; 2016-11-13)
PROC: 06HM33Z Insertion of Infusion Device into Right Femoral Vein, Percutaneous Approach (ICD-10-PCS; 2016-11-13)
PROC: 0T9B70Z Drainage of Bladder with Drainage Device, Via Natural or Artificial Opening (ICD-10-PCS; 2016-11-13)
PROC: 05HN33Z Insertion of Infusion Device into Left Internal Jugular Vein, Percutaneous Approach (ICD-10-PCS; 2016-11-14)
DX: A41.50 Gram-negative sepsis, unspecified (principal); R65.21 Severe sepsis with septic shock; J96.01 Acute respiratory failure with hypoxia; D69.3 Immune thrombocytopenic purpura; J18.9 Pneumonia, unspecified organism; E46 Unspecified protein-calorie malnutrition; I42.9 Cardiomyopathy, unspecified; E83.42 Hypomagnesemia; I50.22 Chronic systolic (congestive) heart failure; J44.1 Chronic obstructive pulmonary disease with (acute) exacerbation; J98.11 Atelectasis; I48.2 Chronic atrial fibrillation; N18.3 Chronic kidney disease, stage 3 (moderate); E83.39 Other disorders of phosphorus metabolism; I25.10 Atherosclerotic heart disease of native coronary artery without angina pectoris; I12.9 Hypertensive chronic kidney disease with stage 1 through stage 4 chronic kidney disease, or unspecified chronic kidney disease; E78.5 Hyperlipidemia, unspecified; D64.9 Anemia, unspecified; N40.0 Benign prostatic hyperplasia without lower urinary tract symptoms; Z79.01 Long term (current) use of anticoagulants; F41.8 Other specified anxiety disorders; M54.5 Low back pain; G89.29 Other chronic pain; G47.33 Obstructive sleep apnea (adult) (pediatric); K80.20 Calculus of gallbladder without cholecystitis without obstruction; K59.09 Other constipation; K57.90 Diverticulosis of intestine, part unspecified, without perforation or abscess without bleeding; K20.9 Esophagitis, unspecified; Z95.810 Presence of automatic (implantable) cardiac defibrillator; Z86.718 Personal history of other venous thrombosis and embolism; Z79.52 Long term (current) use of systemic steroids; Z79.899 Other long term (current) drug therapy; R79.1 Abnormal coagulation profile; E66.01 Morbid (severe) obesity due to excess calories; M48.54XD Collapsed vertebra, not elsewhere classified, thoracic region, subsequent encounter for fracture with routine healing; I25.2 Old myocardial infarction; I35.0 Nonrheumatic aortic (valve) stenosis; K29.70 Gastritis, unspecified, without bleeding; Z86.010 Personal history of colon polyps; K64.8 Other hemorrhoids; R30.0 Dysuria; Z93.3 Colostomy status; Z86.73 Personal history of transient ischemic attack (TIA), and cerebral infarction without residual deficits; Z66 Do not resuscitate; Z51.5 Encounter for palliative care; F17.210 Nicotine dependence, cigarettes, uncomplicated; J02.9 Acute pharyngitis, unspecified; E87.6 Hypokalemia
CPT/HCPCS: 36556; 36600; 71010; 71275; 74177; 76937; 80048; 80053; 80076; 80202; 81001; 82140; 82550; 82565; 82805; 82948; 83605; 83735; 83880; 84100; 84132; 84443; 84484; 85007; 85025; 85027; 85610; 85730; 87040; 87070; 87077; 87086; 87186; 87205; 87449; 93005; 93308; 94150; 94640; 94664; 96365; 96375; C9113; J0456; J1335; J1720; J1940; J2060; J2185; J2270; J2543; J3370; J3475; J3480; J7030; J7040; J7050; J7512; J7608; J7613; Q9963; Q9967